=== PATIENT | male | born 1940 | race Caucasian/White ===

== ENCOUNTER → 2017-12-17 10:19 | Outpatient (CLI) | payer MEDICARE, MEDICAID, SELFPAY ==
[2017-12-17 13:02] LABS: INR 1.8 (1.0-3.5)
== END ==
PROVIDERS: PCP Family Medicine; Visit Provider Family Medicine
DX: I48.0 Paroxysmal atrial fibrillation (principal); Z79.01 Long term (current) use of anticoagulants
CPT/HCPCS: 36415; 85610

== ENCOUNTER 2017-12-24 15:15 | Emergency (ER) | payer MEDICARE, MEDICAID, SELFPAY ==
[2017-12-24 15:40] VITALS: BP 106/85; PULSE 54; RESP 20; TEMP 36.9; O2SAT 92
--- NOTE | 2017-12-24 16:14 | DI.REPORT_ITS ---
SYMPTOMS/DIAGNOSIS: LT AND RT KNEE PAIN, ? FX VS EFFUSION RIGHT KNEE: Three views were obtained. There are mild degenerative changes of the joints of the knee predominantly involving medial tibiofemoral joint. No acute fracture or dislocation seen. LEFT KNEE: Three views were obtained. There are degenerative changes noted involving the joints of the knee. On the tunnel view there is question of lucency projected through the lateral tibial plateau which may be associated with osteophytes. The possibility of a nondisplaced lateral tibial plateau fracture not excluded. CT correlation suggested if clinically appropriate.
--- NOTE | 2017-12-24 16:18 | ED.GENADUL_ITS ---
Disposition Clinical Impression: Bilateral knee pain, Arthritis of knee, patella spur Disposition: HOME Condition: Stable Instructions: Knee Pain (ED) Additional Instructions: Drink plenty fluids and get plenty of rest. Take the Vicodin as needed and directed for pain. Be aware that the Vicodin has acetaminophen or Tylenol and it so do not take extra Tylenol with this due to risk of Tylenol toxicity. If you have gone sufficient time without taking the Vicodin and would like something not as strong, you can take Tylenol. Do not take more than 3 g of Tylenol daily. Call your primary care doctor tomorrow to schedule follow-up appointment for reevaluation. Prescriptions: HYDROcodone 5 mg/APAP 325 mg [[place] 5/325] 1 tab PO Q6H PRN #12 tab PRN Reason: Pain Medical Decision Making - Radiology Data Radiology results: report reviewed, image reviewed Right knee xray: 1. Diffuse osteopenia. 2. Mild arthritic narrowing is seen within the medial compartment. 3. 1.8 cm patellar spur. 4. Scattered atherosclerotic vascular plaquing. Left knee x-ray: 1. Diffuse osteopenia. 2. An approximately 6 mm patellar spur. 3. Mild arthritic narrowing is seen within the patellofemoral space. 4. Scattered atherosclerotic vascular plaquing. - Medical Decision Making 77-year-old male with bilateral knee pain recently, worse over the past 4 days after kneeling on them while fishing. Pain in bilateral knees with range of motion, worse on right side. No obvious injury, deformity. There is no fever, erythema, edema, or significant warmth to touch of skin overlying knees making cellulitis less likely. No calf tenderness, negative Homans sign, no DVT risk factors so doubt DVT. No ligamentous instability. Neurovascularly intact. No recent dose of Tylenol today. Chart notes an allergy to oxycodone which patient and family are unsure of reaction but they do not think it caused throat swelling or respiratory distress. They think that patient has had hydrocodone in the past and has tolerated this. Differential diagnosis includes arthritis, effusion, occult fracture, ligamentous injury. Will give a dose of hydrocodone and send for bilateral knee x-rays. 1900 --long delay in disposition due to critical patients in ED. Bilateral x-rays note osteoarthritis and patella spur but no acute fracture or effusion. Patient feels much better after hydrocodone. Patient was able to ambulate and weight-bear and feels much better and feels good to go home. We will send home with doses of Vicodin as well as prescription. Instructed on rest, ice, elevate. Patient offered Darrick wraps but declined stating he will get this at home. Patient was instructed to follow-up with primary care doctor in 1 week for reevaluation and to return here if worse. History of Present Illness - General Chief complaint: Orthopedic Stated complaint: LEG PAIN Time Seen by Provider: 12/24/17 15:18 Source: patient Mode of arrival: ambulatory Limitations: no limitations - History of Present Illness Initial comments: Patient is a 77-year-old male presents with bilateral knee pain for 4 days. States his knees have been bothering him recently but worse over the past 4 days after kneeling on them for several hours while fishing. States he is having significant pain with range of motion and weightbearing, and symptoms are worse in the right knee. Denies any twisting injury to knees bilaterally. Has taken Tylenol for pain without relief. Cannot take ibuprofen due to taking Coumadin for his A. fib. He denies any recent surgery, recent travel, calf pain , shortness of breath, chest pain or dizziness. - Related Data Warfarin Sodium 2.5 mg PO DAILY #90 tab-cap 02/11/17 Simvastatin 20 mg PO DAILY #90 tab-cap 04/26/17 Metoprolol [Lopressor] 50 mg PO BID tab-cap 04/30/17 Albuterol Sulfate 1.25 mg IH QID PRN #50 vial 08/28/17 Umeclidinium [place] [Incruse Ellipta] 1 dose IH DAILY #90 blist 09/13/17 Ventolin Hfa 1 puff IH Q4H PRN #1 inh 09/13/17 Ranitidine HCl 150 mg PO DAILY #180 tablet 09/24/17 Ropinirole HCl [Requip] 0.25 mg PO HS #90 tablet 10/14/17 Torsemide [Demadex] 80 mg PO DAILY #120 tab 10/14/17 Spironolactone 25 mg PO DAILY #90 tab 10/25/17 Alprazolam 0.125 - 0.25 mg PO DAILY PRN #20 tab-cap 11/15/17 Cilostazol [Pletal] 100 mg PO BID #60 tab-cap 12/17/17 HYDROcodone 5 mg/APAP 325 mg [[place] 5/325] 1 tab PO Q6H PRN #12 tab 12/24/17 Allergies Allergy/AdvReac Type Severity Reaction Status Date / Time venom-honey bee Allergy Severe Unverified 12/24/17 15:46 oxycodone HCl [From Percocet] Allergy Intermediate Unverified 12/24/17 15:46 aspirin AdvReac Mild epistaxis/nose Unverified 12/24/17 15:46 bleeds NSAIDS (Non-Steroidal AdvReac Mild epistaxis/nose Unverified 12/24/17 15:46 Anti-Inflamma bleeds DARRICK Inhibitors AdvReac Unknown COUGH Unverified 12/24/17 15:46 codeine AdvReac Unknown Unverified 12/24/17 15:46 amiodarone AdvReac Insomnia Unverified 12/24/17 15:46 diltiazem AdvReac Insomnia Unverified 12/24/17 15:46 Review of Systems Constitutional: denies: chills, fever Eyes: denies: eye pain ENT: denies: ear pain, dental pain Respiratory: denies: cough, shortness of breath Cardiovascular: denies: chest pain, dyspnea on exertion Gastrointestinal: denies: abdominal pain, nausea, vomiting Genitourinary: denies: urgency, dysuria, frequency Musculoskeletal: denies: back pain Skin: denies: rash, lesions Neurological: denies: headache, weakness, numbness Past Medical History - Past Medical History Medical history: AFIB, CAD, CHF, COPD, CVA/TIA, diabetes, GERD, hyperlipidemia, hypertension Cardiomyopathy Surgical history: herniorraphy, pacemaker/AICD, other (Cataract surgery) Family history: CAD/MA (grandmother), diabetes (mother) - Social History Smoking status: never smoker Alcohol use: none Drug use: none General Exam - General Limitations: no limitations General appearance: alert, in no apparent distress - Eye Eye exam: Present: EOMI - Respiratory Respiratory exam: Absent: respiratory distress - Cardiovascular Cardiovascular Exam: Present: regular rate - Extremities Exam Extremities exam: Present: other (Limited range of motion in knees bilaterally, worse on right side with range of motion. No edema, ecchymosis, erythema or obvious effusion noted to knees bilaterally. No bilateral calf tenderness. Bilateral DP/PT pulses intact. Negative Homans sign bilaterally. Very minimal less than 1+ pitting edema bilateral lower extremities. No pain in hips/ankles/ feet with range of motion. Negative anterior and posterior drawer test bilaterally. No pain with valgus or varus stress.) - Neurological Exam Neurological exam: Present: alert, oriented X3 - Psychiatric Psychiatric exam: Present: normal affect - Skin Skin exam: Present: warm, dry, intact Course Vital Signs - 24 hr 12/24/17 15:40 Temperature 98.4 F Pulse 54 L Respiratory 20 Rate Blood Pressure 106/85 Pulse Oximetry 92 L
[2017-12-24] MEDS: HYDROcodone 5/Acetaminophen 325 TAB PO (17:08)
--- NOTE | 2017-12-24 17:21 | DI.VRAD_ITS ---
EXAM: XR Right Knee, 3 Views EXAM DATE/TIME: 12/24/2017 4:16 PM CLINICAL HISTORY: 77 years old, male; Signs and symptoms; Other: Right knee pain, R/O fracture vs effusion TECHNIQUE: XR Right knee 3 views. COMPARISON: No relevant prior studies available. FINDINGS: Bones/joints: No acute fractures are seen. There is diffuse osteopenia. Mild arthritic narrowing is seen within the medial compartment. A long curvilinear patellar spur arises from the anterior superior aspect measuring an estimated 1.8 cm in length. Soft tissues: Normal. Vasculature: Scattered atherosclerotic plaquing is present within the femoral and popliteal arteries. IMPRESSION: 1. Diffuse osteopenia. 2. Mild arthritic narrowing is seen within the medial compartment. 3. 1.8 cm patellar spur as described above. 4. Scattered atherosclerotic vascular plaquing as described above. Dictated and Authenticated by: Norman Appiah MD. Ordering:JOCLEYNE ARRIOLA MD
--- NOTE | 2017-12-24 17:23 | DI.VRAD_ITS ---
EXAM: XR Left Knee, 3 Views EXAM DATE/TIME: 12/24/2017 4:16 PM CLINICAL HISTORY: 77 years old, male; Signs and symptoms; Other: Left knee pain, R/O acute fracture vs effusion TECHNIQUE: XR Left knee 3 views. COMPARISON: No relevant prior studies available. FINDINGS: Bones/joints: No acute fractures are seen. There is diffuse osteopenia. An approximately 6.0 mm patellar spur arises from the anterior superior aspect. Mild arthritic narrowing is seen within the patellar-femoral space. Soft tissues: Normal. Vasculature: Scattered atherosclerotic plaquing is noted within the femoral artery and popliteal arteries and trifurcation vessels. IMPRESSION: 1. Diffuse osteopenia. 2. An approximately 6.0 mm patellar spur is present as described above. 3. Mild arthritic narrowing is seen within the patellar-femoral space. 4. Scattered atherosclerotic vascular plaquing is present. Dictated and Authenticated by: Norman Appiah MD. Ordering:JOCELYNE ARRIOLA MD
--- NOTE | 2017-12-25 08:20 | PDOC.ERCMPRO ---
Care Management Progress Note 12/25-Dr. Garnett requested patient's PCP be notified that knee xrays were originally read as negative but once over read, there is some changes. PCP is Dr. Adams. Referral faxed to Dr. Adams's office for review and f/u as needed.
== END 2017-12-24 19:39 | disposition home or self-care (01) ==
PROVIDERS: Emergency Provider Physician Assistant; PCP Family Medicine
DX: M25.561 Pain in right knee (principal); M25.562 Pain in left knee; M17.0 Bilateral primary osteoarthritis of knee; M25.762 Osteophyte, left knee; J44.9 Chronic obstructive pulmonary disease, unspecified; E11.9 Type 2 diabetes mellitus without complications; I10 Essential (primary) hypertension
CPT/HCPCS: 73562 ×2; 99284 ×2

== ENCOUNTER 2018-01-08 22:57 | Emergency (ER) | payer MEDICARE, MEDICAID, SELFPAY ==
[2018-01-08] VITALS (11 sets, daily range): BP systolic 90–110; BP diastolic 62–94; PULSE 63–91; RESP 14–28; TEMP 36.3; O2SAT 93–98
--- NOTE | 2018-01-08 00:20 | DI.REPORT_ITS ---
SYMPTOM/DIAGNOSIS: SOB PA AND LATERAL CHEST: There is evidence of COPD. No infiltrate is identified. The heart is not enlarged. Cardiac pacing wires are in stable position when compared with previous images. SUMMARY: COPD. No evidence of acute cardiopulmonary disease.
--- NOTE | 2018-01-08 23:33 | ED.GENADUL ---
Disposition Clinical Impression: CHF (congestive heart failure) Disposition: HOME Condition: Fair Instructions: Heart Failure (ED) Additional Instructions: Please take your medications today as you normally would. Please take 120 mg (6 tablets) of Demadex (torsemide) daily on Saturday, Saturday, Saturday. Go back to your normal dosing on Saturday. Take all other medications as you had been previously doing. Follow-up with primary care on Saturday. Will have you follow back up with cardiology here as well. We will have care management help expedite these appointments. Return to the emergency department if you develop chest pain, increasing shortness of breath, decreasing urine output, fever, other concerns. Referrals: Bennie Adams [Primary Care Provider] - [facility] [Provider Group] Medical Decision Making - Lab Data Results reviewed for labs ordered during visit: Yes - EKG Data -: EKG Interpreted by Me Interpretation: other (100% paced) - Radiology Data Radiology results: report reviewed, image reviewed - Medical Decision Making Patient presenting with increasing shortness of breath that is worse when lying back. Tonight had episodes of diaphoresis associated with it. Did not have any type of chest pain, pressure, heaviness. Is not overly short of breath ambulating in here. He does have history of CHF and COPD. However, his history and his exam is more suggestive of CHF. He cannot really give me an exact time frame in terms of when shortness of breath got worse. His EF one year ago on echo was 20-25%. His EKG is 100% paced. Laboratory studies including a BNP and troponin are sent. Chest x-ray obtained. Chest x-ray shows no overt edema. He has emphysematous change only. Patient's laboratory studies show a negative troponin. He has a normal white count. Kidney function is elevated but is close to his baseline. His BNP is markedly elevated. Compared to previous he has been this high but he is typically 5000 not 10,000. INR is therapeutic. I am going to get a second troponin because of the complaint of diaphoresis. He does not look to be in respiratory distress. I am going to give him oral potassium and IV Lasix. He is on 80 of Demadex orally. I will give him 80 of Lasix IV. Will monitor his output. Will reevaluate his respiratory status after his second troponin comes back. 5 AM -patient has diuresed about 700 mL's of urine in the last couple of hours. His second troponin is negative. He is sitting on the side of the bed in no distress. He has ambulated in the department without problems. Room air saturations have been in the mid 90s. Systolic blood pressures have been 90s without changes or symptoms. At this point no clear indication for admission. I do think we need to continue some diuresis over the weekend. Have discussed with him increasing his Demadex starting Saturday for the weekend. We will then have him follow-up with primary care early next week for reevaluation. Will also try to get him back into cardiology clinic here. Probably needs a repeat echo to see how his ejection fraction is doing since last year. He should return to the ED over the weekend for chest pain, increasing shortness of breath, decreasing urine output, fever, other concerns. History of Present Illness - General Chief complaint: SOB Stated complaint: SOB Time Seen by Provider: 01/08/18 23:33 Source: patient Mode of arrival: ambulatory Limitations: no limitations - History of Present Illness Initial comments: Patient presents to ED with complaint of shortness of breath and sweatiness. Patient reports increasing shortness of breath over some unknown period of time. He really cannot tell me when he thinks it started to get worse. Definitely was bothering him last night. He did not have any chest pain or pressure. He became diaphoretic with his shortness of breath tonight which is what prompted him to come in. Shortness of breath is much worse when he is lying back. He typically sleeps with pillows but even propped up tonight he is having some trouble. He denies having fever. He has a chronic cough which is unchanged. He continues to make urine. He has increased leg swelling but it seems about the same to him. He has been taking his medications which include Demadex and spironolactone. He does have a history of both COPD and CHF. He does not think his inhalers or nebulizers really make a difference. He had a little shortness of breath ambulating from the waiting room to his room here in the ED. However, he states his breathing is much worse if he is lying back. - Related Data Warfarin Sodium 2.5 mg PO DAILY #90 tab-cap 02/11/17 Simvastatin 20 mg PO DAILY #90 tab-cap 12/15/17 Metoprolol [Lopressor] 50 mg PO BID tab-cap 04/30/17 Albuterol Sulfate 1.25 mg IH QID PRN #50 vial 08/28/17 Umeclidinium [place] [Incruse Ellipta] 1 dose IH DAILY #90 blist 09/13/17 Ventolin Hfa 1 puff IH Q4H PRN #1 inh 09/13/17 Ranitidine HCl 150 mg PO DAILY #180 tablet 09/24/17 Ropinirole HCl [Requip] 0.25 mg PO HS #90 tablet 10/14/17 Torsemide [Demadex] 80 mg PO DAILY #120 tab 10/14/17 Spironolactone 25 mg PO DAILY #90 tab 10/25/17 Alprazolam 0.125 - 0.25 mg PO DAILY PRN #20 tab-cap 11/15/17 Hydrocodone/Acetaminophen [Hydrocodone-Acetamin 5-325 mg] 1 tab PO Q6H PRN #28 tab 12/27/17 Inhaler, Assist Devices [Aerochamber Mini] 1 each MC PRN #1 aer 12/27/17 Allergies Allergy/AdvReac Type Severity Reaction Status Date / Time venom-honey bee Allergy Severe Unverified 01/08/18 23:14 oxycodone HCl [From Percocet] Allergy Intermediate Unverified 01/08/18 23:14 aspirin AdvReac Mild epistaxis/nose Unverified 01/08/18 23:14 bleeds NSAIDS (Non-Steroidal AdvReac Mild epistaxis/nose Unverified 01/08/18 23:14 Anti-Inflamma bleeds PARMINDER Inhibitors AdvReac Unknown COUGH Unverified 01/08/18 23:14 codeine AdvReac Unknown Unverified 01/08/18 23:14 amiodarone AdvReac Insomnia Unverified 01/08/18 23:14 diltiazem AdvReac Insomnia Unverified 01/08/18 23:14 Review of Systems Constitutional: diaphoresis. denies: chills, fever Eyes: denies: eye pain, vision change ENT: denies: ear pain, congestion Respiratory: cough, shortness of breath Cardiovascular: edema. denies: chest pain, palpitations, syncope Gastrointestinal: denies: abdominal pain, nausea, vomiting, diarrhea Genitourinary: denies: dysuria, hematuria Musculoskeletal: arthralgia. denies: myalgia Skin: denies: rash Neurological: denies: headache, weakness, numbness Hematological/Lymphatic: easy bleeding Past Medical History - Past Medical History Medical history: AFIB, CAD, CHF, COPD, CVA/TIA, diabetes, GERD, hyperlipidemia, hypertension Cardiomyopathy Surgical history: herniorraphy, pacemaker/AICD, other (Cataract surgery) Family history: CAD/NE (grandmother), diabetes (mother) - Social History Smoking status: never smoker Alcohol use: none Drug use: none General Exam - General Limitations: no limitations General appearance: alert, in no apparent distress - Head Head exam: Present: atraumatic, normocephalic - Eye Eye exam: Present: normal apperance - Neck Neck exam: Present: normal inspection - Respiratory Respiratory exam: Present: rales (Bilateral bases). Absent: respiratory distress, wheezes, rhonchi, decreased breath sounds - Cardiovascular Cardiovascular Exam: Present: regular rate, irregular rhythm, systolic murmur, other (Distal pulses intact) - GI/Abdominal GI/Abdominal exam: Present: soft. Absent: distended, tenderness, guarding - Extremities Exam Extremities exam: Present: pedal edema (3+ pitting edema up to the knees.). Absent: tenderness, calf tenderness - Neurological Exam Neurological exam: Present: alert, oriented X3, CN II-XII intact. Absent: motor sensory deficit - Skin Skin exam: Present: warm, dry, intact. Absent: erythema Course Vital Signs - 24 hr 01/08/18 01/08/18 23:01 23:04 Temperature 97.3 F L Pulse 82 Respiratory 22 22 Rate Blood Pressure 110/94 Pulse Oximetry 98
[2018-01-09] VITALS (16 sets, daily range): BP systolic 88–123; BP diastolic 56–82; PULSE 70–106; RESP 10–30; O2SAT 93–97
[2018-01-09 00:18] LABS: Abs Immature Grans 0.04 k/cumm (0.0-0.09); Absolute Basophil Count 0.05 k/cumm (0.0-0.2); Absolute Eosinophil Count 0.15 k/cumm (0.0-0.7); Absolute Lymphocyte Count 2.05 k/cumm (1.2-3.4); Absolute Monocyte Count 1.16 k/cumm (0.11-0.7); Absolute Neutrophil Count 5.31 k/cumm (1.2-6.7); Basophils % 0.6; Eosinophils % 1.7; HCT 36.9 % (40.0-50.0); HGB 12.5 g/dL (13.5-17.5); Immature Grans % 0.5; Lymphocytes % 23.4; Mean Corp. HGB Concentration 33.9 g/dL (32.0-36.0); Mean Corpuscular Hemoglobin 34.9 pg (27.0-33.0); Mean Corpuscular Volume 103.1 fL (80-95); Mean Platelet Volume 9.7 fL (8.0-11.0); Monocytes % 13.2; Neutrophils % 60.6; RBC 3.58 m/cumm (4.50-6.00); RBC Distribution Width 15.3 % (11.8-14.1); White Blood Cell Count 8.76 k/cumm (4.4-10.8)
[2018-01-09 00:31] LABS: INR 2.4 (1.0-3.5); Prothrombin Time 22.5 sec (9.3-10.8)
--- NOTE | 2018-01-09 00:32 | DI.VRAD_ITS ---
EXAM: XR Chest, 2 Views EXAM DATE/TIME: 01/08/2018 11:46 PM CLINICAL HISTORY: 77 years old, male; Signs and symptoms; Shortness of breath; Prior surgery; Surgery date: 6+ months; Surgery type: Pace maker a couple years ago; Patient HX: SOB, cough TECHNIQUE: XR of the chest, 2 views. COMPARISON: CR - CHEST 2 VIEWS PA,LAT 09/19/2017 6:56 PM FINDINGS: Tubes, catheters and devices: Left chest wall pacemaker with leads in the right atrium, right ventricle, and coronary sinus. Lungs: Emphysematous changes. No evidence of pneumonia, pulmonary vascular congestion, or pulmonary edema. Pleural space: No pneumothorax. No sizable pleural effusion. Heart/Mediastinum: Mild cardiomegaly. Bones/joints: Unremarkable for patient's age. IMPRESSION: Emphysematous changes. No evidence of pneumonia, pulmonary vascular congestion, or pulmonary edema. Dictated and Authenticated by: Leobardo Hernandez MD. Ordering:REBECCA CAM MD
[2018-01-09 00:37] LABS: ALT 15 U/L (12-78); AST 21 U/L (15-37); Albumin 2.8 g/dL (3.4-5.0); Alkaline Phosphatase 93 U/L (46-116); Anion Gap 8.4 mmol/L (3-11); BUN 35 mg/dL (7-18); Bilirubin, Total 0.5 mg/dL (0.2-1.0); CO2 25.6 mmol/L (21.0-32.0); Calcium 8.5 mg/dL (8.5-10.1); Chloride 99 mmol/L (98-107); Estimated GFR 39.49 (mL/min/1.73m2); Glucose 133 mg/dL (70-100); Magnesium 1.9 mg/dL (1.8-2.4); NT-proBNP 10111 pg/mL; Potassium 3.6 mmol/L (3.5-5.1); Sodium 133 mmol/L (136-145); Total Protein 7.6 g/dL (6.4-8.2)
[2018-01-09 00:44] LABS: Troponin I < 0.02 ng/mL (0.00-0.06)
[2018-01-09 00:45] LABS: Platelet Count 247 x1000/uL (130-400)
[2018-01-09 00:46] LABS: RBC Morphology Normal
[2018-01-09] MEDS: Normal Saline Flush 10 ML SYR IVP (01:27)
[2018-01-09] MEDS: Furosemide 100 MG/10 ML VIAL 80 MG IVP (01:27)
[2018-01-09] MEDS: Potassium Chloride 20 MEQ TABCR 40 MEQ PO (01:28)
[2018-01-09 04:34] LABS: Troponin I < 0.02 ng/mL (0.00-0.06)
--- NOTE | 2018-01-09 10:49 | PDOC.ERCMPRO ---
Care Management Progress Note 01/09-Dr. Gay requested cardiology and PCP (Dr. Adams) f/u on Saturday for CHF and medication changes for the weekend. Referrals faxed to [facility] and to Cardiology this am.
== END 2018-01-09 05:52 | disposition home or self-care (01) ==
PROVIDERS: Emergency Provider Emergency Medicine; PCP Family Medicine
DX: I50.9 Heart failure, unspecified (principal); I11.0 Hypertensive heart disease with heart failure; J44.9 Chronic obstructive pulmonary disease, unspecified; E11.9 Type 2 diabetes mellitus without complications
CPT/HCPCS: 71046; 93005; 96374; 99284; 99285; J1940; 36415; 80053; 83735; 83880; 84484; 85025; 85610; 93010

== ENCOUNTER 2018-01-14 12:00 | Outpatient (CLI) | payer MEDICARE, MEDICAID, SELFPAY | END 2018-01-14 12:20 | PROVIDERS: PCP Family Medicine; Visit Provider Nurse Practitioner Family | DX: I48.91 Unspecified atrial fibrillation (principal); Z45.018 Encounter for adjustment and management of other part of cardiac pacemaker | CPT/HCPCS: 93289; 99214 ==

== ENCOUNTER → 2018-02-11 10:28 | Outpatient (BNVA) | payer MEDICARE, MEDICAID, SELFPAY | PROVIDERS: PCP Family Medicine; Visit Provider Nurse Practitioner Family | DX: I42.0 Dilated cardiomyopathy (principal); I48.1 Persistent atrial fibrillation; Z79.01 Long term (current) use of anticoagulants; J44.9 Chronic obstructive pulmonary disease, unspecified; E11.9 Type 2 diabetes mellitus without complications; Z95.0 Presence of cardiac pacemaker | CPT/HCPCS: 99214 ==

== ENCOUNTER 2018-02-12 01:57 | Outpatient (CLI) | payer MEDICARE, MEDICAID, SELFPAY ==
[2018-02-12 13:37] LABS: Anion Gap 9.5 mmol/L (3-11); BUN 30 mg/dL (7-18); CO2 27.5 mmol/L (21.0-32.0); CREATININE 1.42 mg/dL (0.70-1.30); Chloride 98 mmol/L (98-107); Estimated GFR 48.47 (mL/min/1.73m2); Glucose 217 mg/dL (70-100); NT-proBNP 4861 pg/mL; Sodium 135 mmol/L (136-145)
[2018-02-12 13:49] LABS: Digoxin 1.62 ng/mL (0.90-2.00)
== END 2018-02-12 02:17 ==
PROVIDERS: Nurse Practitioner Family; PCP Family Medicine; Visit Provider Family Medicine
DX: I48.91 Unspecified atrial fibrillation (principal); Z79.899 Other long term (current) drug therapy; R06.02 Shortness of breath; I50.9 Heart failure, unspecified
CPT/HCPCS: 36415; 80048; 80162; 83880; 85610

== ENCOUNTER 2018-03-14 01:52 | Outpatient (CLI) | payer MEDICARE, MEDICAID, SELFPAY ==
[2018-03-14 13:42] LABS: Hemoglobin A1C 6.8 % (4.5-6.2)
[2018-03-14 13:45] LABS: INR 2.2 (1.0-3.5); Prothrombin Time 21.2 sec (9.3-10.8)
== END 2018-03-14 02:12 ==
PROVIDERS: PCP Family Medicine; Visit Provider Family Medicine
DX: E11.9 Type 2 diabetes mellitus without complications (principal); I48.0 Paroxysmal atrial fibrillation; Z79.01 Long term (current) use of anticoagulants
CPT/HCPCS: 36415; 83036; 85610

== ENCOUNTER → 2018-03-18 13:54 | Outpatient (BNVA) | payer MEDICARE, MEDICAID, SELFPAY | PROVIDERS: PCP Family Medicine; Visit Provider Nurse Practitioner Family | DX: I48.0 Paroxysmal atrial fibrillation (principal); I11.0 Hypertensive heart disease with heart failure; I42.0 Dilated cardiomyopathy; Z79.01 Long term (current) use of anticoagulants; I25.10 Atherosclerotic heart disease of native coronary artery without angina pectoris; I50.9 Heart failure, unspecified; J44.9 Chronic obstructive pulmonary disease, unspecified; E11.9 Type 2 diabetes mellitus without complications; Z45.018 Encounter for adjustment and management of other part of cardiac pacemaker | CPT/HCPCS: 93284; 99214 ==

== ENCOUNTER 2018-03-22 11:50 | Emergency (ER) | payer MEDICARE, MEDICAID, SELFPAY ==
[2018-03-22 11:55] VITALS: BP 109/86; PULSE 71; RESP 18; TEMP 36.3; O2SAT 100
--- NOTE | 2018-03-22 12:00 | DI.RAD_ITS ---
SYMPTOM/DIAGNOSIS: RT WRIST PAIN, DISTAL RAD TIP, HX GOUT RIGHT WRIST: Three views. No priors. No acute fracture, dislocation, lytic or sclerotic lesions are seen. Mild degenerative changes are seen in the wrist particularly at the radial carpal joint. Vascular calcifications are present. IMPRESSION: Mild degenerative changes of the wrist. No acute abnormality.
--- NOTE | 2018-03-22 12:05 | W.ED.GENAD ---
Discharge Plan Disposition Patient Disposition: HOME Condition: Good Discharge Details Chief Complaint: Orthopedic Clinical Impression: Acute pain of right wrist, Gout Primary Care Provider: Bennie Adams ED Provider: Jason Garnett Home Meds and New Rx's Prescriptions: New acetaminophen [Mapap Extra Strength] 500 MG tablet 500 mg PO Q6H 5 Days Qty: 60 RF: 0 diclofenac sodium 1 % gel 2 gm TP QID Qty: 100 RF: 0 No Action digoxin 125 mcg tablet 0.125 mg PO DAILY RF: 0 naloxone [Narcan] 4 mg/actuation spray,non-aerosol 1 spray MARIANA ONCE PRN (Reason: opioid overdose) Qty: 2 RF: 0 spironolactone 25 mg tablet 50 mg PO DAILY RF: 0 albuterol sulfate [Ventolin HFA] 90 mcg/actuation HFA aerosol inhaler 1 puff IH Q4H PRN (Reason: shortness of breath or wheezing) Qty: 6.7 RF: 2 diazepam 2 mg tablet 2 mg PO HS PRN (Reason: anxiety) Qty: 30 RF: 0 metoprolol tartrate 50 mg tablet 50 mg PO BID Qty: 180 RF: 3 morphine [MS Contin] 15 mg tablet extended release 15 mg PO HS MDD 1 tab PRN (Reason: leg pain) Qty: 30 RF: 0 warfarin 2.5 mg tablet 2.5 - 5 mg PO DAILY Qty: 90 RF: 3 sacubitril-valsartan [Entresto] 24-26 mg tablet 1 tab PO BID Qty: 180 RF: 0 Inhaler, Assist Devices [Aerochamber Mini] 1 EACH spacer 1 ea Miscellaneous PRN Qty: 1 RF: 0 ropinirole 0.25 mg tablet 0.25 mg PO HS RF: 0 ranitidine HCl 150 mg capsule 150 mg PO DAILY RF: 0 umeclidinium 62.5 mcg/actuation blister with device 1 inh IH DAILY RF: 0 albuterol sulfate 1.25 mg/3 mL solution for nebulization 1.25 mg IH QID PRNRF: 0 simvastatin 20 mg tablet 20 mg PO QPM RF: 0 torsemide 20 mg tablet 80 mg PO DAILY Qty: 120 RF: 5 Discharge Instructions Instructions: Gout (ED) Additional Instructions: Please use the wrist brace as directed. Please apply the gel to your wrist as directed for pain control, please take Tylenol as directed. If you notice any worsening of your symptoms, or any new symptoms such as vomiting, diarrhea, fever, chills, shortness of breath, chest pain, numbness, weakness, or fainting , please return immediately to the emergency department for reevaluation. Please follow up with your primary care provider as soon as possible for reassessment and reevaluation. As always, it was a pleasure participating in your medical care today. Referrals: Bennie Adams [Primary Care Provider] - Medical Decision Making This is a pleasant 78-year-old male who is a poor historian with a past medical history of A. fib on Coumadin, digoxin, with a pacemaker and defibrillator, as well as gout. He presents today for right wrist pain that is been present for the last 3 days, it is achy with in nature, worse with movement, improved by nothing. Physical exam demonstrates minimal warmth over the right lateral wrist over the distal aspect of the radius. No evidence of trauma, deformity, no systemic symptoms of tachycardia or fever. No evidence of laceration, or significant infection. Distal extremity demonstrates normal sensation movement brisk capillary refill. Signs and symptoms are concerning for clinical gout. We will get an x-ray to evaluate for any acute fracture. I feel the patient would benefit from a left wrist splint, Lidoderm patch, and NSAID use as tolerable. 1:11 PM Patient's x-ray of his wrist is returned negative for any acute fracture. Differential still includes wrist sprain versus mild gout. We will prescribe acetaminophen, in a dose that would except be acceptable with his Blevins, as well as topical NSAIDs, secondary to his Coumadin use rather than systemic NSAIDs. We have given him a wrist splint, and patient does feel relief with this. We will discharge him home with close follow-up with his PCP. We discussed red flags which to return the patient understands. I have extensively reviewed the treatment plan and discharge instructions with the patient and their family. I have addressed all patient concerns at this time. The patient and family was made aware of what symptoms to monitor for that would warrant a return to the emergency department. Discussed the plan with the patient and family, they demonstrate verbal understanding and agreement with our assessment and plan at this time. FINDINGS: Bones/joints: Degenerative changes in the radiocarpal joint. No acute fracture. There is no evidence of malalignment or dislocation. Soft tissues: Normal. IMPRESSION: 1. Degenerative changes in the radiocarpal joint. 2. No acute fracture. Dictated and Authenticated by: Racheal Marte MD. [facility] General Date/Time Provider Initiated Documentation: 03/22/18 12:00. HPI Narrative: This is a 78-year-old male who is a very poor historian with a past medical history of high cholesterol, hypertension, A. fib, with a pacemaker defibrillator on Coumadin, as well as gout who presents today for evaluation of right wrist pain. Patient states that the pain has been present for the last 2-3 days. Parents were at bedside state that 3 days ago he had a new tractor/bdr, and he has been yanking on it to help get it to move as it is in a funny position. Pain may have begun after this, or per patient it may have begun on its own without any inciting event. Since then it is gradually worsened. It is located in the distal aspect of his right wrist. He describes it as achy, it is worse with movement. He denies any associated fever or chills. He denies any arm pain, elbow pain, finger pain, chest pain, or shortness of breath. He does have a history of gout and he states that the last time he had gout it was in his right great toe. He denies any recent fatty meals, meals high in protein, caviar, or exquisite cheese intake. Patient denies any focal trauma to the wrist. He denies any aggravating or relieving factors, however he does state he took a headache pill which per his medical list may have been his Blevins. Patient denies any other modifying components to his history. He does not recall if this feels like his previous episode of gout. He denies any systemic fevers, chills, numbness, tingling, or weakness. He has no other complaints at this time. He denies any previous surgeries on the wrist. He denies any IV or illicit drug use. Related Data Home Medications Medication Instructions Recorded Confirmed albuterol sulfate 1.25 mg/3 mL 1.25 mg IH QID PRN 01/15/18 03/22/18 solution for nebulization albuterol sulfate HFA 90 1 puff IH Q4H PRN #6.7 gm 01/15/18 03/22/18 mcg/actuation aerosol inhaler digoxin 125 mcg tablet 0.125 mg PO DAILY 01/15/18 03/22/18 naloxone 4 mg/actuation nasal spray 1 spray MARIANA ONCE PRN #2 each 01/15/18 03/22/18 ranitidine 150 mg capsule 150 mg PO DAILY 01/15/18 03/22/18 ropinirole 0.25 mg tablet 0.25 mg PO HS tab 01/15/18 03/22/18 simvastatin 20 mg tablet 20 mg PO QPM 01/15/18 03/22/18 spironolactone 25 mg tablet 50 mg PO DAILY tab 01/15/18 03/22/18 umeclidinium 62.5 mcg/actuation 1 inh IH DAILY 01/15/18 03/22/18 blister powder for inhalation warfarin 2.5 mg tablet 2.5 - 5 mg PO DAILY #90 tab 01/29/18 03/22/18 torsemide 20 mg tablet 80 mg PO DAILY #120 tab 02/11/18 03/22/18 diazepam 2 mg tablet 2 mg PO HS PRN #30 tab 03/07/18 03/22/18 metoprolol tartrate 50 mg tablet 50 mg PO BID #180 tab-cap 03/07/18 03/22/18 morphine ER 15 mg tablet,extended 15 mg PO HS PRN #30 tab MDD 1 tab 03/07/18 03/22/18 release sacubitril 24 mg-valsartan 26 mg 1 tab PO BID #180 tab 03/18/18 03/22/18 tablet acetaminophen [Mapap Extra 500 mg PO Q6H 5 Days #60 tab 03/22/18 Strength] diclofenac sodium 2 gm TP QID #100 gm 03/22/18 Previous Rx's Medication Instructions Recorded albuterol sulfate HFA 90 1 puff IH Q4H PRN #6.7 gm 01/15/18 mcg/actuation aerosol inhaler naloxone 4 mg/actuation nasal spray 1 spray MARIANA ONCE PRN #2 each 01/15/18 warfarin 2.5 mg tablet 2.5 - 5 mg PO DAILY #90 tab 01/29/18 torsemide 20 mg tablet 80 mg PO DAILY #120 tab 02/11/18 diazepam 2 mg tablet 2 mg PO HS PRN #30 tab 03/07/18 metoprolol tartrate 50 mg tablet 50 mg PO BID #180 tab-cap 03/07/18 morphine ER 15 mg tablet,extended 15 mg PO HS PRN #30 tab MDD 1 tab 03/07/18 release sacubitril 24 mg-valsartan 26 mg 1 tab PO BID #180 tab 03/18/18 tablet acetaminophen [Mapap Extra 500 mg PO Q6H 5 Days #60 tab 03/22/18 Strength] diclofenac sodium 2 gm TP QID #100 gm 03/22/18 Allergies Allergy/AdvReac Type Severity Reaction Status Date / Time venom-honey bee Allergy Severe Verified 03/18/18 14:15 oxycodone HCl [From Percocet] Allergy Intermediate Verified 03/18/18 14:15 aspirin AdvReac Mild epistaxis/nose Verified 03/18/18 14:15 bleeds NSAIDS (Non-Steroidal AdvReac Mild epistaxis/nose Verified 03/18/18 14:15 Anti-Inflamma bleeds PARMINDER Inhibitors AdvReac Unknown COUGH Verified 03/18/18 14:15 codeine AdvReac Unknown Verified 03/18/18 14:15 amiodarone AdvReac Insomnia Verified 03/18/18 14:15 diltiazem AdvReac Insomnia Verified 03/18/18 14:15 General Stated Complaint: Orthopedic YESIKA: 3 Review of Systems Review of Systems All systems reviewed & are unremarkable except as noted in HPI and below Exam Narrative Exam Narrative: 1.Const: Well-nourished, Well-developed, appearing stated age 2.Eyes: PERRL, no conjunctival injection, and symmetrical lids. 3.ENT: Atraumatic external nose and ears. Moist MM. Neck: Symmetric, trachea midline, No thyromegaly. 4.CVS: +S1/S2, No murmurs or gallops. Peripheral pulses 2+ and equal in all extremities. Brisk capillary refill in all extremities. 5.RESP: Unlabored respiratory effort. Clear to auscultation bilaterally. No wheezes rales or rhonchi 6.GI: Soft, Nontender/Nondistended, No hepatosplenomegaly. No guarding or rebound. 7.MSK: Normocephalic/Atraumatic, Extremities w/o deformity. No cyanosis or clubbing, Normal movement of all extremities. Patient does demonstrate minimal tenderness in the distal aspect of his right radius. Minimal tenderness over the anatomical snuffbox. Mild warmth, no significant erythema. Visual inspection of both wrists is otherwise symmetric. Minimal swelling in the right wrist. Pain with passive movement of the wrist. Minimal pain on palpation of that area, no pain on palpation of the proximal radius, or metacarpals. 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 No evidence of deformity, active bleeding, laceration, or purulent drainage. 8.Skin: Warm, Dry. No rashes or lesions. 9.Neuro: recreation leader II-XII grossly intact. Sensation grossly intact, no focal neurologic deficits. 10.Psych: (AAO) x3. Appropriate mood and affect Course Vital Signs Temperature 36.3 C L 03/22/18 11:55 Pulse 71 03/22/18 11:55 Respiratory Rate 18 03/22/18 11:55 Blood Pressure 109/86 03/22/18 11:55 Pulse Oximetry 100 03/22/18 11:55 Temperature 36.3 C L 03/22/18 11:55 Temperature Source Temporal Artery Scan 03/22/18 11:55 Pulse 71 03/22/18 11:55 Respiratory Rate 18 03/22/18 11:55 Respiratory Effort 03/22/18 11:55 Blood Pressure 109/86 03/22/18 11:55 Pulse Oximetry 100 03/22/18 11:55 Oxygen Delivery Method Room Air 03/22/18 11:55 Oxygen Flow Rate 0 03/22/18 11:55 Pain Level 10 03/22/18 12:04
[2018-03-22] MEDS: Ibuprofen 600 MG TAB PO (12:08)
[2018-03-22] MEDS: Lidocaine 5% Patch 1 PATCH TP (12:09)
--- NOTE | 2018-03-22 13:06 | DI.VRAD_ITS ---
EXAM: XR Right Wrist Complete, 3 or more Views EXAM DATE/TIME: 03/22/2018 12:03 PM CLINICAL HISTORY: 78 years old, male; Signs and symptoms; Other: R wrist pain, distal rad tip, HX gout TECHNIQUE: XR Right wrist 3 or more views. COMPARISON: No relevant prior studies available. FINDINGS: Bones/joints: Degenerative changes in the radiocarpal joint. No acute fracture. There is no evidence of malalignment or dislocation. Soft tissues: Normal. IMPRESSION: 1. Degenerative changes in the radiocarpal joint. 2. No acute fracture. Dictated and Authenticated by: Racheal Marte MD. Ordering:KENIA PHAM MD
[2018-03-22 13:08] VITALS: BP 104/74; PULSE 74; RESP 14; O2SAT 96
[2018-03-22] MEDS: Dexamethasone 4 MG TAB 12 MG PO (13:16)
== END 2018-03-22 13:23 | disposition home or self-care (01) ==
LOC: ER 13:27
PROVIDERS: Emergency Provider Student in an Organized Health Care Education/Training Program; PCP Family Medicine
DX: M25.531 Pain in right wrist (principal); M10.031 Idiopathic gout, right wrist
CPT/HCPCS: 29125; 99283; 73110; 99282; J8540; L3908

== ENCOUNTER 2018-03-29 10:54 | Emergency (ER) | payer MEDICARE, MEDICAID, SELFPAY ==
[2018-03-29 11:03] VITALS: BP 116/79; PULSE 75; RESP 18; TEMP 36.8; O2SAT 94
[2018-03-29 11:09] VITALS: BP 116/85; PULSE 64; RESP 16; TEMP 36.8; O2SAT 94
--- NOTE | 2018-03-29 11:25 | DI.RAD_ITS ---
SYMPTOM/DIAGNOSIS: FELL 6 DAYS AGO, LANDING ON RIGHT RIBS. PA CHEST, RIGHT RIBS: 03/29 PA chest and 4 additional views of the right ribs were obtained. There is transvenous cardiac pacemaker in position. Cardiac size is enlarged. Probable small right pleural effusion and question minimal patchy infiltrate of the costophrenic angle noted on the right. I cannot confirm the presence of a rib fracture but the views of the ribs are somewhat limited due to the patient's body habitus. With the clinical history of an injury at this site the possibility of occult rib fracture cannot be excluded. CONCLUSION: Small right pleural effusion and minimal infiltrate at right lung base, question acute infectious process vs occult rib injury.
--- NOTE | 2018-03-29 11:28 | W.ED.GENAD ---
Discharge Plan Disposition Patient Disposition: HOME Condition: Fair Discharge Details Chief Complaint: GenMedical Clinical Impression: Pneumonia Primary Care Provider: Bennie Adams ED Provider: Uri Long [facility] and New Rx's Prescriptions: New doxycycline monohydrate 100 mg tablet 100 mg PO BID Qty: 20 RF: 0 No Action digoxin 125 mcg tablet 0.125 mg PO DAILY RF: 0 spironolactone 25 mg tablet 50 mg PO DAILY RF: 0 albuterol sulfate [Ventolin HFA] 90 mcg/actuation HFA aerosol inhaler 1 puff IH Q4H PRN (Reason: shortness of breath or wheezing) Qty: 6.7 RF: 2 metoprolol tartrate 50 mg tablet 50 mg PO BID Qty: 180 RF: 3 morphine [MS Contin] 15 mg tablet extended release 15 mg PO HS MDD 1 tab PRN (Reason: leg pain) Qty: 30 RF: 0 warfarin 2.5 mg tablet 2.5 - 5 mg PO DAILY Qty: 90 RF: 3 diazepam 2 mg tablet 2 mg PO HS PRN (Reason: anxiety) Qty: 30 RF: 0 Inhaler, Assist Devices [Aerochamber Mini] 1 EACH spacer 1 ea Miscellaneous PRN Qty: 1 RF: 0 ropinirole 0.25 mg tablet 0.25 mg PO HS RF: 0 ranitidine HCl 150 mg capsule 150 mg PO DAILY RF: 0 albuterol sulfate 1.25 mg/3 mL solution for nebulization 1.25 mg IH QID PRNRF: 0 simvastatin 20 mg tablet 20 mg PO QPM RF: 0 torsemide 20 mg tablet 80 mg PO DAILY Qty: 120 RF: 5 hydrocodone-acetaminophen 5-325 mg Tablet 5 mg PO RF: 0 tiotropium bromide [Spiriva Respimat] 2.5 mcg/actuation Mist RF: 0 albuterol sulfate [Ventolin HFA] 90 mcg/actuation Hfa Aerosol Inhaler RF: 0 Discharge Instructions Instructions: Pneumonia (ED), Rib Contusion (ED) Referrals: [facility] [place] [facility] [Outside] - Return if symptoms worsen Medical Decision Making Exam and HPI consistent with rib fracture. Will x-ray to support. Apprised of x-ray impression. I will prescribe Doxycycline for the suspect pneumonia. Contraindications with Zithromax and other medications he is on. Advised to use his incentive spirometer. Return to ED if symptoms worsen otherwise with pcp. He and family member agree with plan. Imaging Data Radiologic Study: Imaging: X-Ray My impression: No acute obvious rib fracture. ? pneumonia at the right costophrenic angle. Radiologist's impression: V-Rad: No mention of rib fracture. 1. Mild opacities in the costophrenic angles may represent mild atelectasis or pneumonia. 2. There may be mild right pleural effusion. HPI General Date/Time Provider Initiated Documentation: 03/29/18 11:25. Limitations to Documentation: no limitations. Information obtained by: patient and family. History of Present Illness 78 year old M presents to the emergency department with the chief complaint of rib pain, described as moderate, HPI Narrative: 78 y/o male here with c/o right rib injury and pain. He is accompanied by family. He reports falling from stool, approximately two feet landing on the right rib. He was seen by his PCP and was advised to watch for signs of pneumonia with increased risk from pain. He denies fever but has increased difficulty breathing due to the pain. Family tells me they decreased his Morphine in half and ask if they should increase back to full tab for the pain. Denies any N/V, fever, hemoptysis. Denies hitting head. Related Data Home Medications Medication Instructions Recorded Confirmed albuterol sulfate 1.25 mg/3 mL 1.25 mg IH QID PRN 01/15/18 03/29/18 solution for nebulization albuterol sulfate HFA 90 1 puff IH Q4H PRN #6.7 gm 01/15/18 03/29/18 mcg/actuation aerosol inhaler digoxin 125 mcg tablet 0.125 mg PO DAILY 01/15/18 03/29/18 ranitidine 150 mg capsule 150 mg PO DAILY 01/15/18 03/29/18 ropinirole 0.25 mg tablet 0.25 mg PO HS tab 01/15/18 03/29/18 simvastatin 20 mg tablet 20 mg PO QPM 01/15/18 03/29/18 spironolactone 25 mg tablet 50 mg PO DAILY tab 01/15/18 03/29/18 warfarin 2.5 mg tablet 2.5 - 5 mg PO DAILY #90 tab 01/29/18 03/29/18 torsemide 20 mg tablet 80 mg PO DAILY #120 tab 02/11/18 03/29/18 metoprolol tartrate 50 mg tablet 50 mg PO BID #180 tab-cap 03/07/18 03/29/18 morphine ER 15 mg tablet,extended 15 mg PO HS PRN #30 tab MDD 1 tab 03/07/18 03/29/18 release diazepam 2 mg tablet 2 mg PO HS PRN #30 tab 03/26/18 03/29/18 albuterol sulfate [Ventolin HFA] 03/29/18 doxycycline monohydrate 100 mg PO BID #20 tab 03/29/18 hydrocodone-acetaminophen 5 mg PO 03/29/18 tiotropium bromide [Spiriva 03/29/18 Respimat] Previous Rx's Medication Instructions Recorded albuterol sulfate HFA 90 1 puff IH Q4H PRN #6.7 gm 01/15/18 mcg/actuation aerosol inhaler warfarin 2.5 mg tablet 2.5 - 5 mg PO DAILY #90 tab 01/29/18 torsemide 20 mg tablet 80 mg PO DAILY #120 tab 02/11/18 metoprolol tartrate 50 mg tablet 50 mg PO BID #180 tab-cap 03/07/18 morphine ER 15 mg tablet,extended 15 mg PO HS PRN #30 tab MDD 1 tab 03/07/18 release diazepam 2 mg tablet 2 mg PO HS PRN #30 tab 03/26/18 doxycycline monohydrate 100 mg PO BID #20 tab 03/29/18 Allergies Allergy/AdvReac Type Severity Reaction Status Date / Time venom-honey bee Allergy Severe Verified 03/26/18 09:17 oxycodone HCl [From Percocet] Allergy Intermediate Verified 03/26/18 09:17 aspirin AdvReac Mild epistaxis/nose Verified 03/26/18 09:17 bleeds NSAIDS (Non-Steroidal AdvReac Mild epistaxis/nose Verified 03/26/18 09:17 Anti-Inflamma bleeds PARMINDER Inhibitors AdvReac Unknown COUGH Verified 03/26/18 09:17 codeine AdvReac Unknown Verified 03/26/18 09:17 amiodarone AdvReac Insomnia Verified 03/26/18 09:17 diltiazem AdvReac Insomnia Verified 03/26/18 09:17 General Stated Complaint: GenMedical YESIKA: 3 Review of Systems ENT Reports system reviewed and no additional complaints, except as docu Cardiovascular Reports system reviewed and no additional complaints, except as docu Respiratory Reports cough, Denies hemoptysis and Denies wheezing Gastrointestinal Reports system reviewed and no additional complaints, except as [facility] Genitourinary Reports system reviewed and no additional complaints, except as [facility] Musculoskeletal Reports other (right rib pain) Integumentary/Breasts Reports system reviewed and no additional complaints, except as [facility] Neurologic Reports system reviewed and no additional complaints, except as [facility] Hematologic/Lymphatic Reports system reviewed and no additional complaints, except as [facility] Allergic/Immunologic Denies wheezing Exam Const General: cooperative, healthy appearing, uncomfortable (looks like he is in pain) and no acute distress Nutritional Appearance: average body habitus Orientation: alert, awake and oriented x3 HENMT Head: normal to inspection and atraumatic Ears: hearing grossly normal bilaterally and external ears normal Mouth: moist mucous membranes Eyes General: appearance normal, both eyes and all related structures Neck Neck: normal visual inspection, full ROM and no lymphadenopathy Chest Chest: normal inspection of the chest and normal palpation of entire chest wall Breast inspection: normal inspection of the breasts Breast palpation: normal palpation of the breasts Chest/axillae images: 1. Chest wall/Rib pain both anteriorly and posteriorly Resp Effort & Inspection: able to speak in complete sentences and decreased respiratory effort (secondary to pain) Auscultation: clear to auscultation bilaterally Cardio Rate: regular rate Back/Spine/Pelvis Back: No back tenderness Skin General skin exam: no rashes or lesions noted Neuro General: alert, awake, oriented x3, gait normal, tone normal and moves all extremities Cognition: normal cognition Speech: speech normal Gait: normal gait Extrem General: normal to inspection, full ROM and normal capillary refill Psych Appearance: grossly normal and well kempt Speech and Movement: speech and movement normal Mood: congruent mood Affect: normal affect Attitude: cooperative Thought Process: normal Course Vital Signs Temperature 36.8 C 03/29/18 11:03 Pulse 75 03/29/18 11:03 Respiratory Rate 18 03/29/18 11:03 Blood Pressure 116/79 03/29/18 11:03 Pulse Oximetry 94 L 03/29/18 11:03 Temperature 36.8 C 03/29/18 11:09 Temperature Source Temporal Artery Scan 03/29/18 11:09 Pulse 64 03/29/18 11:09 Respiratory Rate 16 03/29/18 11:09 Respiratory Effort 03/29/18 11:05 Respiratory Depth Shallow 03/29/18 11:05 Blood Pressure 116/85 03/29/18 11:09 Blood Pressure Position Sitting 03/29/18 11:03 Pulse Oximetry 94 L 03/29/18 11:09 Oxygen Delivery Method Room Air 03/29/18 11:09 Oxygen Flow Rate 0 03/29/18 11:09
--- NOTE | 2018-03-29 11:33 | ED.GENADUL_ITS ---
Discharge Plan Disposition Patient Disposition: HOME Condition: Fair Discharge Details Chief Complaint: GenMedical Clinical Impression: Pneumonia Primary Care Provider: Bennie Adams ED Provider: Uri Long [facility] and New Rx's Prescriptions: New doxycycline monohydrate 100 mg tablet 100 mg PO BID Qty: 20 RF: 0 No Action digoxin 125 mcg tablet 0.125 mg PO DAILY RF: 0 spironolactone 25 mg tablet 50 mg PO DAILY RF: 0 albuterol sulfate [Ventolin HFA] 90 mcg/actuation HFA aerosol inhaler 1 puff IH Q4H PRN (Reason: shortness of breath or wheezing) Qty: 6.7 RF: 2 metoprolol tartrate 50 mg tablet 50 mg PO BID Qty: 180 RF: 3 morphine [MS Contin] 15 mg tablet extended release 15 mg PO HS MDD 1 tab PRN (Reason: leg pain) Qty: 30 RF: 0 warfarin 2.5 mg tablet 2.5 - 5 mg PO DAILY Qty: 90 RF: 3 diazepam 2 mg tablet 2 mg PO HS PRN (Reason: anxiety) Qty: 30 RF: 0 Inhaler, Assist Devices [Aerochamber Mini] 1 EACH spacer 1 ea Miscellaneous PRN Qty: 1 RF: 0 ropinirole 0.25 mg tablet 0.25 mg PO HS RF: 0 ranitidine HCl 150 mg capsule 150 mg PO DAILY RF: 0 albuterol sulfate 1.25 mg/3 mL solution for nebulization 1.25 mg IH QID PRNRF: 0 simvastatin 20 mg tablet 20 mg PO QPM RF: 0 torsemide 20 mg tablet 80 mg PO DAILY Qty: 120 RF: 5 hydrocodone-acetaminophen 5-325 mg Tablet 5 mg PO RF: 0 tiotropium bromide [Spiriva Respimat] 2.5 mcg/actuation Mist RF: 0 albuterol sulfate [Ventolin HFA] 90 mcg/actuation Hfa Aerosol Inhaler RF: 0 Discharge Instructions Instructions: Pneumonia (ED), Rib Contusion (ED) Referrals: [facility] Emergency Dept. [Outside] - Return if symptoms worsen Medical Decision Making Exam and HPI consistent with rib fracture. Will x-ray to support. Apprised of x-ray impression. I will prescribe Doxycycline for the suspect pneumonia. Contraindications with Zithromax and other medications he is on. Advised to use his incentive spirometer. Return to ED if symptoms worsen otherwise with pcp. He and family member agree with plan. Imaging Data Radiologic Study: Imaging: X-Ray My impression: No acute obvious rib fracture. ? pneumonia at the right costophrenic angle. Radiologist's impression: V-Rad: No mention of rib fracture. 1. Mild opacities in the costophrenic angles may represent mild atelectasis or pneumonia. 2. There may be mild right pleural effusion. HPI General Date/Time Provider Initiated Documentation: 03/29/18 11:25 . Limitations to Documentation: no limitations . Information obtained by: patient and family . History of Present Illness 78 year old M presents to the emergency department with the chief complaint of rib pain, described as moderate, HPI Narrative: 78 y/o male here with c/o right rib injury and pain. He is accompanied by family. He reports falling from stool, approximately two feet landing on the right rib. He was seen by his PCP and was advised to watch for signs of pneumonia with increased risk from pain. He denies fever but has increased difficulty breathing due to the pain. Family tells me they decreased his Morphine in half and ask if they should increase back to full tab for the pain. Denies any N/V, fever, hemoptysis. Denies hitting head. Related Data Home Medications Medication Instructions Recorded Confirmed albuterol sulfate 1.25 mg/3 mL 1.25 mg IH QID PRN 01/15/18 03/29/18 solution for nebulization albuterol sulfate HFA 90 1 puff IH Q4H PRN #6.7 gm 01/15/18 03/29/18 mcg/actuation aerosol inhaler digoxin 125 mcg tablet 0.125 mg PO DAILY 01/15/18 03/29/18 ranitidine 150 mg capsule 150 mg PO DAILY 01/15/18 03/29/18 ropinirole 0.25 mg tablet 0.25 mg PO HS tab 01/15/18 03/29/18 simvastatin 20 mg tablet 20 mg PO QPM 01/15/18 03/29/18 spironolactone 25 mg tablet 50 mg PO DAILY tab 01/15/18 03/29/18 warfarin 2.5 mg tablet 2.5 - 5 mg PO DAILY #90 tab 01/29/18 03/29/18 torsemide 20 mg tablet 80 mg PO DAILY #120 tab 02/11/18 03/29/18 metoprolol tartrate 50 mg tablet 50 mg PO BID #180 tab-cap 03/07/18 03/29/18 morphine ER 15 mg tablet,extended 15 mg PO HS PRN #30 tab MDD 1 tab 03/07/18 release diazepam 2 mg tablet 2 mg PO HS PRN #30 tab 03/26/18 03/29/18 albuterol sulfate [Ventolin HFA] 03/29/18 doxycycline monohydrate 100 mg PO BID #20 tab 03/29/18 hydrocodone-acetaminophen 5 mg PO 03/29/18 tiotropium bromide [Spiriva 03/29/18 Respimat] Previous Rx's Medication Instructions Recorded albuterol sulfate HFA 90 1 puff IH Q4H PRN #6.7 gm 01/15/18 mcg/actuation aerosol inhaler warfarin 2.5 mg tablet 2.5 - 5 mg PO DAILY #90 tab 01/29/18 torsemide 20 mg tablet 80 mg PO DAILY #120 tab 02/11/18 metoprolol tartrate 50 mg tablet 50 mg PO BID #180 tab-cap 03/07/18 morphine ER 15 mg tablet,extended 15 mg PO HS PRN #30 tab MDD 1 tab 03/07/18 release diazepam 2 mg tablet 2 mg PO HS PRN #30 tab 03/26/18 doxycycline monohydrate 100 mg PO BID #20 tab 03/29/18 Allergies Allergy/AdvReac Type Severity Reaction Status Date / Time venom-honey bee Allergy Severe Verified 03/26/18 09:17 oxycodone HCl [From Percocet] Allergy Intermediate Verified 03/26/18 09:17 aspirin AdvReac Mild epistaxis/nose Verified 03/26/18 09:17 bleeds NSAIDS (Non-Steroidal AdvReac Mild epistaxis/nose Verified 03/26/18 09:17 Anti-Inflamma bleeds PARMINDER Inhibitors AdvReac Unknown COUGH Verified 03/26/18 09:17 codeine AdvReac Unknown Verified 03/26/18 09:17 amiodarone AdvReac Insomnia Verified 03/26/18 09:17 diltiazem AdvReac Insomnia Verified 03/26/18 09:17 General Stated Complaint: GenMedical YESIKA: 3 Review of Systems ENT Reports system reviewed and no additional complaints, except as docu Cardiovascular Reports system reviewed and no additional complaints, except as docu Respiratory Reports cough, Denies hemoptysis and Denies wheezing Gastrointestinal Reports system reviewed and no additional complaints, except as [facility] Genitourinary Reports system reviewed and no additional complaints, except as [facility] Musculoskeletal Reports other (right rib pain) Integumentary/Breasts Reports system reviewed and no additional complaints, except as [facility] Neurologic Reports system reviewed and no additional complaints, except as [facility] Hematologic/Lymphatic Reports system reviewed and no additional complaints, except as [facility] Allergic/Immunologic Denies wheezing Exam Const General: cooperative, healthy appearing, uncomfortable (looks like he is in pain ) and no acute distress Nutritional Appearance: average body habitus Orientation: alert, awake and oriented x3 HENMT Head: normal to inspection and atraumatic Ears: hearing grossly normal bilaterally and external ears normal Mouth: moist mucous membranes Eyes General: appearance normal, both eyes and all related structures Neck Neck: normal visual inspection, full ROM and no lymphadenopathy Chest Chest: normal inspection of the chest and normal palpation of entire chest wall Breast inspection: normal inspection of the breasts Breast palpation: normal palpation of the breasts Chest/axillae images: 2 1. Chest wall/Rib pain both anteriorly and posteriorly Resp Effort & Inspection: able to speak in complete sentences and decreased respiratory effort (secondary to pain) Auscultation: clear to auscultation bilaterally Cardio Rate: regular rate Back/Spine/Pelvis Back: No back tenderness Skin General skin exam: no rashes or lesions noted Neuro General: alert, awake, oriented x3, gait normal, tone normal and moves all extremities Cognition: normal cognition Speech: speech normal Gait: normal gait Extrem General: normal to inspection, full ROM and normal capillary refill Psych Appearance: grossly normal and well kempt Speech and Movement: speech and movement normal Mood: congruent mood Affect: normal affect Attitude: cooperative Thought Process: normal Course Vital Signs Temperature 36.8 C 03/29/18 11:03 Pulse 75 03/29/18 11:03 Respiratory Rate 18 03/29/18 11:03 Blood Pressure 116/79 03/29/18 11:03 Pulse Oximetry 94 L 03/29/18 11:03 Temperature 36.8 C 03/29/18 11:09 Temperature Source Temporal Artery Scan 03/29/18 11:09 Pulse 64 03/29/18 11:09 Respiratory Rate 16 03/29/18 11:09 Respiratory Effort 03/29/18 11:05 Respiratory Depth Shallow 03/29/18 11:05 Blood Pressure 116/85 03/29/18 11:09 Blood Pressure Position Sitting 03/29/18 11:03 Pulse Oximetry 94 L 03/29/18 11:09 Oxygen Delivery Method Room Air 03/29/18 11:09 Oxygen Flow Rate 0 03/29/18 11:09
--- NOTE | 2018-03-29 12:24 | DI.VRAD_ITS ---
EXAM: XR Chest, 1 View EXAM DATE/TIME: 03/29/2018 12:12 PM CLINICAL HISTORY: 78 years old, male; Injury or trauma; Fall; Initial encounter; Sprain or strain TECHNIQUE: XR of the chest, 1 view. COMPARISON: SC CHEST 2 VIEWS PA,LAT 01/08/2018 11:46 PM FINDINGS: Tubes, catheters and devices: Transvenous pacemaker leads Lungs: Mild opacities in the costophrenic angles may represent mild atelectasis or pneumonia. Pleural space: There may be mild right pleural effusion. Heart/Mediastinum: Cardiomegaly Bones/joints: Osseous structures are stable IMPRESSION: 1. Mild opacities in the costophrenic angles may represent mild atelectasis or pneumonia. 2. There may be mild right pleural effusion. Dictated and Authenticated by: Racheal Marte MD. Ordering:CONI DAVIDSON MD
== END 2018-03-29 13:23 | disposition home or self-care (01) ==
PROVIDERS: Emergency Provider Nurse Practitioner Family; PCP Family Medicine
DX: J18.9 Pneumonia, unspecified organism (principal); W08.XXXA Fall from other furniture, initial encounter
CPT/HCPCS: 99283; 71046; 71100

== ENCOUNTER 2018-04-08 01:42 | Outpatient (CLI) | payer MEDICARE, MEDICAID, SELFPAY ==
[2018-04-08 13:28] LABS: Prothrombin Time 43.8 sec (9.3-10.8)
[2018-04-08 13:36] LABS: Anion Gap 14.7 mmol/L (3-11); BUN 30 mg/dL (7-18); CO2 27.3 mmol/L (21.0-32.0); CREATININE 1.62 mg/dL (0.70-1.30); Calcium 9.4 mg/dL (8.5-10.1); Chloride 93 mmol/L (98-107); Estimated GFR 41.63 (mL/min/1.73m2); Glucose 191 mg/dL (70-100); NT-proBNP 2423 pg/mL; Potassium 4.1 mmol/L (3.5-5.1); Sodium 135 mmol/L (136-145)
[2018-04-08 14:30] LABS: INR 4.7 (1.0-3.5)
== END 2018-04-08 02:02 ==
PROVIDERS: PCP Family Medicine; Visit Provider Nurse Practitioner Family
DX: I50.9 Heart failure, unspecified (principal); I48.0 Paroxysmal atrial fibrillation; Z79.01 Long term (current) use of anticoagulants
CPT/HCPCS: 36415; 80048; 83880; 85610

== ENCOUNTER 2018-04-10 02:20 | Outpatient (CLI) | payer MEDICARE, MEDICAID, SELFPAY ==
[2018-04-10 12:46] LABS: INR 3.3 (1.0-3.5); Prothrombin Time 30.9 sec (9.3-10.8)
== END 2018-04-10 02:40 ==
PROVIDERS: PCP Family Medicine; Visit Provider Family Medicine
DX: I48.91 Unspecified atrial fibrillation (principal); Z79.01 Long term (current) use of anticoagulants
CPT/HCPCS: 36415; 85610

== ENCOUNTER → 2018-04-15 13:50 | Outpatient (BNVA) | payer MEDICARE, MEDICAID, SELFPAY | PROVIDERS: PCP Family Medicine; Visit Provider Nurse Practitioner Family | DX: I42.0 Dilated cardiomyopathy (principal); I48.0 Paroxysmal atrial fibrillation; I25.10 Atherosclerotic heart disease of native coronary artery without angina pectoris; I10 Essential (primary) hypertension; E11.9 Type 2 diabetes mellitus without complications; J44.9 Chronic obstructive pulmonary disease, unspecified; Z45.018 Encounter for adjustment and management of other part of cardiac pacemaker | CPT/HCPCS: 93289; 99214 ==

== ENCOUNTER 2018-04-30 01:59 | Outpatient (CLI) | payer MEDICARE, MEDICAID, SELFPAY ==
[2018-04-30 12:53] LABS: Prothrombin Time 18.6 sec (9.3-11.0)
[2018-04-30 13:03] LABS: Anion Gap 9.9 mmol/L (3-11); BUN 21 mg/dL (7-18); CO2 28.1 mmol/L (21.0-32.0); CREATININE 1.27 mg/dL (0.70-1.30); Calcium 8.9 mg/dL (8.5-10.1); Chloride 100 mmol/L (98-107); Estimated GFR 55.14 (mL/min/1.73m2); Glucose 185 mg/dL (70-100); Magnesium 1.6 mg/dL (1.8-2.4); NT-proBNP 1909 pg/mL; Potassium 4.6 mmol/L (3.5-5.1); Sodium 138 mmol/L (136-145)
[2018-04-30 13:09] LABS: INR 1.8 (1.0-3.5)
== END 2018-04-30 02:19 ==
PROVIDERS: PCP Family Medicine; Visit Provider Nurse Practitioner Family
DX: I48.0 Paroxysmal atrial fibrillation (principal); Z79.01 Long term (current) use of anticoagulants; R06.02 Shortness of breath; I10 Essential (primary) hypertension; I25.10 Atherosclerotic heart disease of native coronary artery without angina pectoris; I42.0 Dilated cardiomyopathy
CPT/HCPCS: 36415; 80048; 83735; 83880; 85610

== ENCOUNTER 2018-05-09 02:27 | Outpatient (CLI) | payer MEDICARE, MEDICAID, SELFPAY ==
[2018-05-09 14:14] LABS: INR 2.2 (1.0-3.5); Prothrombin Time 22.6 sec (9.3-11.0)
== END 2018-05-09 02:47 ==
PROVIDERS: PCP Family Medicine; Visit Provider Family Medicine
DX: I48.0 Paroxysmal atrial fibrillation (principal); Z79.01 Long term (current) use of anticoagulants
CPT/HCPCS: 36415; 85610

== ENCOUNTER 2018-05-23 01:01 | Outpatient (CLI) | payer MEDICARE, MEDICAID, SELFPAY ==
[2018-05-23 13:15] LABS: INR 2.7 (0.9-1.1); Prothrombin Time 27.1 sec (9.3-11.0)
== END 2018-05-23 01:21 ==
PROVIDERS: PCP Family Medicine; Visit Provider Family Medicine
DX: I48.0 Paroxysmal atrial fibrillation (principal); Z79.01 Long term (current) use of anticoagulants
CPT/HCPCS: 36415; 85610

== ENCOUNTER 2018-05-29 02:06 | Outpatient (CLI) | payer MEDICARE, MEDICAID, SELFPAY ==
[2018-05-29 12:54] LABS: Anion Gap 10.1 mmol/L (3-11); BUN 29 mg/dL (7-18); CO2 27.9 mmol/L (21.0-32.0); CREATININE 1.63 mg/dL (0.70-1.30); Calcium 8.5 mg/dL (8.5-10.1); Chloride 98 mmol/L (98-107); Estimated GFR 41.34 (mL/min/1.73m2); Glucose 205 mg/dL (70-100); Magnesium 1.8 mg/dL (1.8-2.4); Potassium 4.4 mmol/L (3.5-5.1); Sodium 136 mmol/L (136-145)
[2018-05-29 13:15] LABS: Prothrombin Time 33.9 sec (9.3-11.0)
[2018-05-29 13:18] LABS: INR 3.3 (0.9-1.1)
== END 2018-05-29 02:26 ==
PROVIDERS: PCP Family Medicine; Visit Provider Nurse Practitioner Family
DX: I48.0 Paroxysmal atrial fibrillation (principal); I42.9 Cardiomyopathy, unspecified; Z79.01 Long term (current) use of anticoagulants
CPT/HCPCS: 36415; 80048; 83735; 83880; 85610

== ENCOUNTER 2018-05-30 12:01 | Inpatient (IN) | payer MEDICARE, MEDICAID, SELFPAY ==
[2018-05-30] VITALS (57 sets, daily range): BP systolic 81–135; BP diastolic 46–119; PULSE 55–133; RESP 14–73; TEMP 36.5–37.7; O2SAT 90–100
--- NOTE | 2018-05-30 12:01 | DI.RAD_ITS ---
SYMPTOMS/DIAGNOSIS: UNSTEADY, PALE, ? ACUTE DISTRESS CHEST: Frontal and lateral views. Comparison is 03/29/18. There is poor inspiration. The heart size and pulmonary vasculature are stable. Pacing wires are stable in position. No focal consolidating infiltrates, effusions or pneumothoraces are identified. The lungs appear hyperinflated with flattened diaphragms suggesting underlying COPD. Degenerative changes are seen in the spine. IMPRESSION: No acute pulmonary process.
[2018-05-30 12:29] LABS: Bilirubin Negative (Negative); Blood Negative (Negative); Clarity Clear; Glucose Negative (Negative); Ketones Negative (Negative); Leukocyte Esterase Negative (Negative); Nitrite Negative (Negative); Specific Gravity 1.015 (1.005-1.025); Urobilinogen 0.2 EU/dL (Up TO 0.2); pH 6.5 (5-8)
[2018-05-30 12:30] LABS: Abs Immature Grans 0.02 k/cumm (0.0-0.09); Absolute Basophil Count 0.04 k/cumm (0.0-0.2); Absolute Lymphocyte Count 1.14 k/cumm (1.2-3.4); Absolute Monocyte Count 1.38 k/cumm (0.11-0.7); Absolute Neutrophil Count 12.16 k/cumm (1.2-6.7); Basophils % 0.3; Eosinophils % 0.7; HCT 41.9 % (40.0-50.0); HGB 14.1 g/dL (13.5-17.5); Immature Grans % 0.1; Lymphocytes % 7.7; Mean Corp. HGB Concentration 33.7 g/dL (32.0-36.0); Mean Corpuscular Hemoglobin 35.7 pg (27.0-33.0); Mean Corpuscular Volume 106.1 fL (80-95); Mean Platelet Volume 10.3 fL (8.0-11.0); Monocytes % 9.3; Neutrophils % 81.9; Platelet Count 187 x1000/uL (130-400); RBC 3.95 m/cumm (4.50-6.00); RBC Distribution Width 13.4 % (11.8-14.1); White Blood Cell Count 14.85 k/cumm (4.4-10.8)
[2018-05-30 12:49] LABS: Diff Comment RBC Morph Reviewed; Macrocytosis 3+; Polychromasia Present; Stomatocytes 2+
--- NOTE | 2018-05-30 12:55 | ED.GENADUL_ITS ---
Discharge Plan Disposition Patient Disposition: [facility] IN[facility] Condition: Fair Discharge Details Chief Complaint: GenMedical Clinical Impression: Weakness, Dizziness, Hypotension Reason For Visit: WEAKNESS,WRIST PAIN Admit Date/Time: 05/30/18 18:23 Admit Provider: Rubens Hernandez Attending Provider: Rubens Hernandez Primary Care Provider: Bennie Adams ED Provider: Yasmine Torres Discharge Data Discharge Date/Time-TO BE ENTERED AT DEPARTURE: 05/30/18 19:16 Medical Decision Making 78-year-old male with a history of diabetes, GERD, A. fib on coumadin, CAD, HLD, COPD, CVA, pacemaker/AICD who presents for weakness and shakiness this morning, worse when sitting on the toilet today. Patient also complaining of chronic right wrist pain for the past month worse with movement. No headache, chest pain, vomiting, diarrhea, urinary symptoms. Blood pressure 96/67 on arrival. Afebrile. Patient is mainly complaining of pain in his right wrist. 2+ pitting edema to b/l LE. Patient states this is chronic and slightly better than usual. No focal deficits. EKG notes a rate of 71, paced, no acute findings. Due to patient's age and comorbidities, will place an IV, bolus IV fluids, labs, urinalysis, CT head and chest. 1600 --labs reviewed and note a white blood cell count of 14, hemoglobin 14, negative troponin, BNP 1332, urinalysis negative. CT head, chest x-ray, right wrist and hand x-ray no acute findings. Wrist and hand x-rays note degenerative changes. Patient given a dose of morphine for his right wrist which he takes at night for chronic leg pain. As per the source of his white blood cell count of 14, I am unsure at this time as to the source. His abdomen is soft and nontender and he has no complaint of vomiting. His right wrist appears to have pain out of proportion to exam and does not appear septic at this time. Admits to a few episodes of diarrhea this week. He denies any recent antibiotic use. His blood pressure is hypotensive but has responded to fluids. Systolic as low as the 80s but now improved to 94/59. No complaint of headache and no altered mental status or fever making meningitis unlikely. 1700 -- d/w hospitalist - accepts pt for admission. Medical Records Medical records reviewed: Yes I reviewed the patient's medical records. Imaging Data Radiologic Study: Attestation: I personally reviewed and interpreted this imaging study as follows: Radiologist's impression: XR chest 2V PA & lateral CHEST: Frontal and lateral views. Comparison is 03/29/18. There is poor inspiration. The heart size and pulmonary vasculature are stable. Pacing wires are stable in position. No focal consolidating infiltrates, effusions or pneumothoraces are identified. The lungs appear hyperinflated with flattened diaphragms suggesting underlying COPD. Degenerative changes are seen in the spine. IMPRESSION: No acute pulmonary process. CT:CT head wo CT BRAIN, NONCONTRAST: Comparison is 10/04/15. There is cerebral atrophy consistent with the patient's age. There are areas of decreased attenuation in the white matter consistent with small vessel ischemic disease. There are areas of lacunar infarcts in the basal ganglia bilaterally. There are areas of encephalomalacia involving the posterior left parietal lobe, the right occipital lobe and the right parietal lobe, most suggestive of old infarcts. There is no acute intracranial hemorrhage, infarct, midline shift or mass effect. The ventricles are intact. The basilar cisterns are patent. The visualized paranasal sinuses are clear. The mastoid air cells are well pneumatized. The calvarium is intact. IMPRESSION: No acute intracranial process. XR Right Hand Complete, 3 or more Views FINDINGS: Bones/joints: No acute fracture. No malalignment. Degenerative changes at the radiocarpal joint. Degenerative changes at the interphalangeal joints. Diffuse demineralization of the bones. Soft tissues: Normal. IMPRESSION: 1. No acute abnormality. 2. Degenerative changes at the radiocarpal joint. XR Right Wrist Complete, 3 or more Views FINDINGS: Bones/joints: Diffusely mineralized lesion of the bones. Degenerative changes at the radiocarpal joint. No acute fracture. No malalignment. Soft tissues: Normal. Vasculature: Vascular calcifications. IMPRESSION: 1. Degenerative changes in the radiocarpal joint. 2. No acute abnormality. Lab Data Lab results reviewed: Yes I reviewed the patient's lab results. ECG Data Attestation: I personally reviewed and interpreted this ECG (s) as follows: Interpretation: 1207 -- 71, paced, no acute findings, QTc 456, QRS 162. HPI General Mode of arrival: EMS . Date/Time Provider Initiated Documentation: 05/30/18 12:12 . Limitations to Documentation: no limitations . Information obtained by: patient . HPI Narrative: Patient is a 78-year-old male with a history of diabetes, GERD, A. fib on coumadin, CAD, HLD, COPD, CVA, pacemaker/AICD who presents for weakness and shakiness this morning. Patient states he was sitting on the toilet this morning when he states he could not get up due to weakness. Patient states he has had dizziness in the mornings for several months but states this was much worse associated with weakness and shakiness this morning. Patient states he was trying to urinate and was not pushing to have a bowel movement. Patient also admits to chronic right wrist pain for the past month. States he has been seen by a doctor before for this and had negative x-rays. Patient states the pain is worse with movement. He denies any new injury or redness to the wrist. Patient denies headache, chest pain, nausea, vomiting, diarrhea, urinary symptoms or vision changes. He states he has occasional shortness of breath over the past years but denies any at present. He states his last bowel movement was yesterday and normal. He states he has also had intermittent episodes of diarrhea. He also admits to chronic cough. He states he ambulates with a cane or walker at baseline. He states he has been eating and drinking less than usual for the past month. Related Data Home Medications Medication Instructions Recorded Confirmed albuterol sulfate 1.25 mg/3 mL 1.25 mg IH QID PRN 01/15/18 05/30/18 solution for nebulization albuterol sulfate HFA 90 1 puff IH Q4H PRN #6.7 gm 01/15/18 05/30/18 mcg/actuation aerosol inhaler digoxin 125 mcg tablet 0.125 mg PO DAILY 01/15/18 05/30/18 ranitidine 150 mg capsule 150 mg PO DAILY 01/15/18 05/30/18 ropinirole 0.25 mg tablet 0.25 mg PO HS tab 01/15/18 05/30/18 warfarin 2.5 mg tablet 2.5 - 5 mg PO DAILY #90 tab 01/29/18 05/30/18 metoprolol tartrate 50 mg tablet 50 mg PO BID #180 tab-cap 03/07/18 05/30/18 tiotropium bromide [Spiriva 1 puff INHALATION DAILY AM 03/29/18 05/30/18 Respimat] diazepam 2 mg tablet 2 mg PO HS PRN #30 tab 04/24/18 05/30/18 simvastatin 20 mg tablet 20 mg PO QPM #90 tab 04/24/18 05/30/18 morphine ER 15 mg tablet,extended 15 mg PO HS PRN #30 tab MDD 1 tab 04/25/18 05/30/18 release magnesium L-lactate ER 84 mg 84 mg PO BID #180 tab NS 05/22/18 05/30/18 tablet,extended release spironolactone 25 mg tablet 25 mg PO DAILY tab 05/23/18 05/30/18 torsemide 20 mg tablet 60 mg PO DAILY #120 tab 05/23/18 05/30/18 acetaminophen [Tylenol Extra 1,000 mg PO BID 05/30/18 05/30/18 Strength] sacubitril-valsartan [Entresto] 1 tab PO BID 05/30/18 05/30/18 Previous Rx's Medication Instructions Recorded albuterol sulfate HFA 90 1 puff IH Q4H PRN #6.7 gm 01/15/18 mcg/actuation aerosol inhaler warfarin 2.5 mg tablet 2.5 - 5 mg PO DAILY #90 tab 01/29/18 metoprolol tartrate 50 mg tablet 50 mg PO BID #180 tab-cap 03/07/18 diazepam 2 mg tablet 2 mg PO HS PRN #30 tab 04/24/18 simvastatin 20 mg tablet 20 mg PO QPM #90 tab 04/24/18 morphine ER 15 mg tablet,extended 15 mg PO HS PRN #30 tab MDD 1 tab 04/25/18 release magnesium L-lactate ER 84 mg 84 mg PO BID #180 tab NS 05/22/18 tablet,extended release torsemide 20 mg tablet 60 mg PO DAILY #120 tab 05/23/18 Allergies Allergy/AdvReac Type Severity Reaction Status Date / Time venom-honey bee Allergy Severe Verified 05/30/18 12:27 oxycodone HCl [From Percocet] Allergy Intermediate Verified 05/30/18 12:27 aspirin AdvReac Mild epistaxis/nose Verified 05/30/18 12:27 bleeds NSAIDS (Non-Steroidal AdvReac Mild epistaxis/nose Verified 05/30/18 12:27 Anti-Inflamma bleeds PARMINDER Inhibitors AdvReac Unknown COUGH Verified 05/30/18 12:27 codeine AdvReac Unknown Verified 05/30/18 12:27 amiodarone AdvReac Insomnia Verified 05/30/18 12:27 diltiazem AdvReac Insomnia Verified 05/30/18 12:27 General Stated Complaint: GenMedical YESIKA: 3 Review of Systems Review of Systems All systems reviewed & are unremarkable except as noted in HPI and below Constitutional Reports as per HPI, Denies chills, Denies fever(s), Reports poor appetite and Reports weakness Eyes Denies blurry vision ENT Denies dizziness, Denies sore throat and Denies throat swelling Cardiovascular Denies chest pain and Denies dyspnea Respiratory Denies dyspnea Gastrointestinal Denies abdominal pain, Denies diarrhea and Denies vomiting Genitourinary Denies hematuria and Denies dysuria Musculoskeletal Denies back pain and Denies numbness Integumentary/Breasts Denies lesions and Denies rash Neurologic Denies dizziness, Denies numbness and Reports weakness Allergic/Immunologic Denies throat swelling ON LICENSE OF [facility] Medical History Cardiomyopathy (Acute) TIA (transient ischemic attack) (Acute) Atrial fibrillation (Chronic) COPD (chronic obstructive pulmonary disease) (Chronic) CVA (cerebral vascular accident) (Chronic) Diabetes (Chronic) GERD (gastroesophageal reflux disease) (Chronic) HTN (hypertension) (Chronic) Surgical History AICD (automatic cardioverter/defibrillator) present (Acute) Pacemaker (Acute) Extraction of cataract LEFT HEART CARDIAC CATH Repair of inguinal hernia Social History Smoking/Tobacco Use Status: Never alcohol intake: never substance use type: does not use Exam Const General: cooperative and other (appears uncomfortable at times c/o R wrist pain) Orientation: alert, awake and oriented x3 HENMT Head: normal to inspection Ears: hearing grossly normal bilaterally, external ears normal and TM's normal bilaterally General nose exam: external nose normal Face and sinus: normal facial exam Mouth: oral mucosae normal Teeth and gingiva: dentition normal Throat: posterior oropharynx normal Eyes General: appearance normal, both eyes and all related structures Eyelids: eyelids normal Pupils: PERRL EOM: EOM intact bilaterally Neck Neck: normal visual inspection Lymphatic: no lymphadenopathy noted Chest Chest: normal inspection of the chest Resp Effort & Inspection: normal respiratory effort and able to speak in complete sentences Auscultation: clear to auscultation bilaterally Cardio Rate: regular rate Rhythm: regular rhythm GI Inspection: normal to inspection Palpation: soft, not firm, no guarding, no hepatosplenomegaly, no masses and nontender Auscultation: normal bowel sounds Back/Spine/Pelvis Thoracic/Lumbar Spine: thoracic and lumbar spine normal to inspection Skin General skin exam: no rashes or lesions noted Neuro General: alert and awake Cognition: normal cognition Speech: speech normal Gait: normal gait Motor: muscle tone normal throughout Sensory Exam: no sensory deficits noted Extrem General: full ROM and edema Laterality: bilateral (2+ pitting) Right upper extremity: wrist (no erythema to wrist or hand) Details: normal to inspection, tenderness Location: of the distal radius, of the distal ulna, of the dorsal wrist and of the volar wrist and abnormal ROM Details: pain with active ROM during and pain with passive ROM during; no swelling, no unusual warmth, no ecchymosis and no crepitus and hand Details: normal to inspection, tenderness Location: of the dorsal hand and vascular exam Details: radial pulse present, ulnar pulse present and normal capillary refill; not cool and no cyanosis Psych Appearance: grossly normal Mental Status: mental status grossly normal Speech and Movement: speech and movement normal Affect: normal affect Thought Process: normal Course Vital Signs Temperature 97.7 F 05/30/18 11:54 Pulse 73 05/30/18 11:54 Respiratory Rate 20 05/30/18 11:54 Blood Pressure 96/67 L 05/30/18 11:54 Pulse Oximetry 100 05/30/18 11:54 Temperature 97.7 F 05/30/18 11:54 Temperature Source Temporal Artery Scan 05/30/18 11:54 Pulse 73 05/30/18 11:54 Respiratory Rate 20 05/30/18 11:54 Respiratory Effort Non-Labored 05/30/18 11:54 Blood Pressure 96/67 L 05/30/18 11:54 Blood Pressure Position Sitting 05/30/18 11:54 Pulse Oximetry 100 05/30/18 11:54 Oxygen Delivery Method Room Air 05/30/18 11:54 Oxygen Flow Rate 0 05/30/18 11:54
[2018-05-30 13:06] LABS: Digoxin 1.85 ng/mL (0.90-2.00)
[2018-05-30 13:10] LABS: NT-proBNP 1332 pg/mL
--- NOTE | 2018-05-30 13:11 | DI.CT_ITS ---
SYMPTOMS/DIAGNOSIS: WEAKNESS, SHAKING, ? ACUTE PROCESS CT BRAIN, NONCONTRAST: Comparison is 10/04/15. There is cerebral atrophy consistent with the patient's age. There are areas of decreased attenuation in the white matter consistent with small vessel ischemic disease. There are areas of lacunar infarcts in the basal ganglia bilaterally. There are areas of encephalomalacia involving the posterior left parietal lobe, the right occipital lobe and the right parietal lobe, most suggestive of old infarcts. There is no acute intracranial hemorrhage, infarct, midline shift or mass effect. The ventricles are intact. The basilar cisterns are patent. The visualized paranasal sinuses are clear. The mastoid air cells are well pneumatized. The calvarium is intact. IMPRESSION: No acute intracranial process. The findings were discussed with the Emergency Department on the date of the examination.
[2018-05-30 13:12] LABS: ALT 12 U/L (12-78); AST 32 U/L (15-37); Albumin 3.1 g/dL (3.4-5.0); Alkaline Phosphatase 68 U/L (46-116); Anion Gap 9.7 mmol/L (3-11); BUN 30 mg/dL (7-18); Bilirubin, Total 0.5 mg/dL (0.2-1.0); CO2 27.3 mmol/L (21.0-32.0); CREATININE 1.33 mg/dL (0.70-1.30); Calcium 8.8 mg/dL (8.5-10.1); Chloride 100 mmol/L (98-107); Estimated GFR 52.28 (mL/min/1.73m2); Glucose 187 mg/dL (70-100); Potassium 5.5 mmol/L (3.5-5.1); Sodium 137 mmol/L (136-145); Total Protein 7.2 g/dL (6.4-8.2)
[2018-05-30 13:13] LABS: Troponin I < 0.02 ng/mL (0.00-0.06)
[2018-05-30 13:14] LABS: INR 3.5 (0.9-1.1)
[2018-05-30 14:00] LABS: Potassium 4.8 mmol/L (3.5-5.1)
[2018-05-30] MEDS: Normal Saline 250 ML 500 ML IV (14:32)
--- NOTE | 2018-05-30 14:32 | NUR.NOTE ---
patient right wrist pain has been addressed with heat, and patient reports pain not improving, will inform md Nursing Note:
[2018-05-30] MEDS: Acetaminophen 500 MG TAB 1000 MG PO ×2 (14:38→20:10)
--- NOTE | 2018-05-30 15:58 | DI.RAD_ITS ---
SYMPTOM/DIAGNOSIS: CHRONIC PAIN, RIGHT WRIST: Three views. Comparison is made with 03/22/18. No acute fracture or dislocation is seen. There are mild degenerative changes seen at the radial carpal joint and the first carpal metacarpal joint. The bones appear mildly demineralized. There are vascular calcifications present. IMPRESSION: No acute abnormality. Osteoarthritis of the right wrist. RIGHT HAND: Three views. No acute or healing fracture or dislocation is identified. There are degenerative changes of the wrist, particularly at the distal interphalangeal joints of the right index and middle fingers. The metacarpal phalangeal joints appear well maintained. The bones appear mildly osteopenic. The soft tissues are unremarkable. IMPRESSION: No acute abnormality. Moderate osteoarthritis of the right hand.
[2018-05-30] MEDS: MORPHine 10 MG/ML VIAL 4 MG IVP (16:23)
--- NOTE | 2018-05-30 16:27 | NUR.NOTE ---
Nursing Note: patient medicated per MD order
[2018-05-30 16:53] LABS: ESR 48 MM/HR (1-20)
--- NOTE | 2018-05-30 16:55 | DI.VRAD_ITS ---
EXAM: XR Right Wrist Complete, 3 or more Views EXAM DATE/TIME: 05/30/2018 4:36 PM CLINICAL HISTORY: 78 years old, male; Pain; Wrist; Right; Patient HX: Chronic pain, per PT: Gotten a lot worse than normal; Additional info: R/O acute process TECHNIQUE: XR Right wrist 3 or more views. COMPARISON: CR XR wrist RT complete 03/22/2018 12:18 PM FINDINGS: Bones/joints: Diffusely mineralized lesion of the bones. Degenerative changes at the radiocarpal joint. No acute fracture. No malalignment. Soft tissues: Normal. Vasculature: Vascular calcifications. IMPRESSION: 1. Degenerative changes in the radiocarpal joint. 2. No acute abnormality. Dictated and Authenticated by: Eriberto Ibarra MD. Ordering:JOCELYNE Underwood MD
--- NOTE | 2018-05-30 16:57 | DI.VRAD_ITS ---
EXAM: XR Right Hand Complete, 3 or more Views EXAM DATE/TIME: 05/30/2018 4:36 PM CLINICAL HISTORY: 78 years old, male; Pain; Hand; Right; Patient HX: Chronic, per PT: Pain has gotten a lot worse; Additional info: R/O acute process TECHNIQUE: XR Right hand 3 or more views. COMPARISON: CR XR wrist RT complete 03/22/2018 12:18 PM FINDINGS: Bones/joints: No acute fracture. No malalignment. Degenerative changes at the radiocarpal joint. Degenerative changes at the interphalangeal joints. Diffuse demineralization of the bones. Soft tissues: Normal. IMPRESSION: 1. No acute abnormality. 2. Degenerative changes at the radiocarpal joint. Dictated and Authenticated by: Eriberto Ibarra MD. Ordering:JOCELYNE Underwood MD
--- NOTE | 2018-05-30 17:07 | NUR.NOTE ---
patient has voided using the urinal with RN assistance, 1000mLs noted Nursing Note:
[2018-05-30 17:55] LABS: Lactate-non-spesis 1.8 mmol/L (0.6-1.4)
--- NOTE | 2018-05-30 18:08 | W.PM.HP.N ---
Date of service: 05/30/18 Time of Service: 18:08 Assessment and Plan (1) Weakness: Current visit: Yes Status: Acute Weakness. Nonspecific and subacute. I might be suspicious of medication factors and the Entresto is the most recent addition and quite possibly the culprit. I think we should probably try making some adjustments in his medication regimen but do so cautiously and slowly given the multitude of problems. I will start simply by holding the Entresto. As to the acute on chronic wrist pain it is possible something is brewing here what with the physical findings and leukocytosis and elevated sedimentation rate a septic arthritis is always the first consideration but there is certainly not enough on exam at present to make this diagnosis if symptoms persist or if findings escalate I would have the joint tapped. Will treat symptomatically for the moment Slightly elevated INR as noted, will hold Coumadin and monitor Slightly elevated potassium noted, will monitor off Entresto. I did review advanced directives. Patient has AICD but requests no intubation. History of Present Illness Chief Complaint: weakness Narrative: Patient is a 78-year-old male with multiple medical problems including congestive heart failure. He has had several weeks of progressive weakness. There have been some adjustments in his medications recently and more particularly he was started about 2 weeks ago on Entresto. Today he felt that he just could not manage any longer at home and came to the emergency room. In addition, he has had 1 day of aggravation of chronic pain in the right wrist. In the emergency room film of the wrist was negative. White count of 14,000 and sed rate of 48 were noted. He was given 4 mg of morphine but continues to complain of wrist pain. Blood pressures have been in the 90s systolic, which is close to baseline according to his daughter he was admitted for further evaluation and management Review of Systems Review of Systems All systems reviewed & are unremarkable except as noted in HPI and below PFSH Surgical History Extraction of cataract LEFT HEART CARDIAC CATH Repair of inguinal hernia Social History Smoking/Tobacco Use Status: Never Meds Home Medications Medication Instructions Recorded Confirmed Type Inhaler, Assist Devices #1 aer 12/27/17 05/09/18 Clinic [Aerochamber Mini] albuterol sulfate 1.25 mg/3 mL 1.25 mg IH QID PRN 01/15/18 05/30/18 History solution for nebulization albuterol sulfate HFA 90 1 puff IH Q4H PRN #6.7 gm 01/15/18 05/30/18 Rx mcg/actuation aerosol inhaler digoxin 125 mcg tablet 0.125 mg PO DAILY 01/15/18 05/30/18 History ranitidine 150 mg capsule 150 mg PO DAILY 01/15/18 05/30/18 History ropinirole 0.25 mg tablet 0.25 mg PO HS tab 01/15/18 05/30/18 History warfarin 2.5 mg tablet 2.5 - 5 mg PO DAILY #90 tab 01/29/18 05/30/18 Rx metoprolol tartrate 50 mg tablet 50 mg PO BID #180 tab-cap 03/07/18 05/30/18 Rx tiotropium bromide [Spiriva 1 puff INHALATION DAILY AM 03/29/18 05/30/18 History Respimat] diazepam 2 mg tablet 2 mg PO HS PRN #30 tab 04/24/18 05/30/18 Rx simvastatin 20 mg tablet 20 mg PO QPM #90 tab 04/24/18 05/30/18 Rx morphine ER 15 mg tablet,extended 15 mg PO HS PRN #30 tab MDD 1 tab 04/25/18 05/30/18 Rx release magnesium L-lactate ER 84 mg 84 mg PO BID #180 tab NS 05/22/18 05/30/18 Rx tablet,extended release spironolactone 25 mg tablet 25 mg PO DAILY tab 05/23/18 05/30/18 History torsemide 20 mg tablet 60 mg PO DAILY #120 tab 05/23/18 05/30/18 Rx acetaminophen [Tylenol Extra 1,000 mg PO BID 05/30/18 05/30/18 History Strength] sacubitril-valsartan [Entresto] 1 tab PO BID 05/30/18 05/30/18 History Allergies Allergy/AdvReac Type Severity Reaction Status Date / Time venom-honey bee Allergy Severe Verified 05/30/18 12:27 oxycodone HCl [From Percocet] Allergy Intermediate Verified 05/30/18 12:27 aspirin AdvReac Mild epistaxis/nose Verified 05/30/18 12:27 bleeds NSAIDS (Non-Steroidal AdvReac Mild epistaxis/nose Verified 05/30/18 12:27 Anti-Inflamma bleeds PARMINDER Inhibitors AdvReac Unknown COUGH Verified 05/30/18 12:27 codeine AdvReac Unknown Verified 05/30/18 12:27 amiodarone AdvReac Insomnia Verified 05/30/18 12:27 diltiazem AdvReac Insomnia Verified 05/30/18 12:27 Exam Narrative Exam Narrative: Blood pressure 94/59, pulse 72, respirations 18, afebrile, O2 sat 96% on room air. HEENT is unremarkable. Neck supple. Lungs clear. Heart irregularly irregular abdomen is soft and nontender. and rectal exam deferred extremities 1+ pedal edema. Neurological patient is alert and oriented and moves all 4 extremities. The right wrist is slightly puffy but no induration, no redness and no warmth. There is pain with passive range of motion Laboratory: White count 14.8 hematocrit 41 Results Labs : 05/30/18 12:19 05/30/18 13:30 Laboratory Results - last 24 hr 05/30/18 05/30/18 05/30/18 12:19 12:19 12:19 WBC 14.85 H RBC 3.95 L Hgb 14.1 Hct 41.9 MCV 106.1 H MCH 35.7 H MCHC 33.7 RDW 13.4 Plt Count 187 MPV 10.3 Immature Gran % 0.1 Neutrophils % 81.9 Lymphocytes % 7.7 Monocytes % 9.3 Eosinophils % 0.7 Basophils % 0.3 Absolute Neutrophils 12.16 H Absolute Lymphocytes 1.14 L Absolute Monocytes 1.38 H Absolute Eosinophils 0.10 Absolute Basophils 0.04 Differential Comment Rbc morph reviewed RBC Morphology See below Polychromasia Present Macrocytosis 3+ Stomatocytes 2+ ESR PT INR Sodium 137 Potassium 5.5 H Chloride 100 Carbon Dioxide 27.3 Anion Gap 9.7 BUN 30 H Creatinine 1.33 H Estimated GFR/1.73 m2 52.28 Glucose 187 H Lactate Calcium 8.8 Magnesium 2.0 Total Bilirubin 0.5 AST 32 ALT 12 Alkaline Phosphatase 68 Troponin I < 0.02 NT-Pro-B Natriuret Pep 1332 H Total Protein 7.2 Albumin 3.1 L Urine Color Urine Clarity Urine pH Ur Specific [place] Urine Protein Urine Ketones Urine Blood Urine Nitrite Urine Bilirubin Urine Urobilinogen Ur Leukocyte Esterase Urine Glucose Digoxin 05/30/18 05/30/18 05/30/18 12:19 12:19 12:20 WBC RBC Hgb Hct MCV MCH MCHC RDW Plt Count MPV Immature Gran % Neutrophils % Lymphocytes % Monocytes % Eosinophils % Basophils % Absolute Neutrophils Absolute Lymphocytes Absolute Monocytes Absolute Eosinophils Absolute Basophils Differential Comment RBC Morphology Polychromasia Macrocytosis Stomatocytes ESR 48 H PT 35.0 H INR 3.5 H Sodium Potassium Chloride Carbon Dioxide Anion Gap BUN Creatinine Estimated GFR/1.73 m2 Glucose Lactate Calcium Magnesium Total Bilirubin AST ALT Alkaline Phosphatase Troponin I NT-Pro-B Natriuret Pep Total Protein Albumin Urine Color Yellow Urine Clarity Clear Urine pH 6.5 Ur Specific [place] 1.015 Urine Protein Negative Urine Ketones Negative Urine Blood Negative Urine Nitrite Negative Urine Bilirubin Negative Urine Urobilinogen 0.2 Ur Leukocyte Esterase Negative Urine Glucose Negative Digoxin 05/30/18 05/30/18 05/30/18 12:25 13:30 17:49 WBC RBC Hgb Hct MCV MCH MCHC RDW Plt Count MPV Immature Gran % Neutrophils % Lymphocytes % Monocytes % Eosinophils % Basophils % Absolute Neutrophils Absolute Lymphocytes Absolute Monocytes Absolute Eosinophils Absolute Basophils Differential Comment RBC Morphology Polychromasia Macrocytosis Stomatocytes ESR PT INR Sodium Potassium 4.8 Chloride Carbon Dioxide Anion Gap BUN Creatinine Estimated GFR/1.73 m2 Glucose Lactate 1.8 H Calcium Magnesium Total Bilirubin AST ALT Alkaline Phosphatase Troponin I NT-Pro-B Natriuret Pep Total Protein Albumin Urine Color Urine Clarity Urine pH Ur Specific [place] Urine Protein Urine Ketones Urine Blood Urine Nitrite Urine Bilirubin Urine Urobilinogen Ur Leukocyte Esterase Urine Glucose Digoxin 1.85 Last Vital Signs Temp 36.5 C 05/30/18 11:54 Pulse 72 05/30/18 16:57 Resp 18 05/30/18 16:57 BP 94/59 L 05/30/18 16:57 Pulse Ox 96 05/30/18 16:57
[2018-05-30] MEDS: HYDROmorphone 2 MG/ML VIAL 1 MG IVP ×2 (18:41→19:05)
[2018-05-30] MEDS: Normal Saline 250 ML IV (18:44)
[2018-05-30] MEDS: Ketorolac 30 MG/ML VIAL IVP (18:48)
[2018-05-30] MEDS: Lidocaine 5% Patch 1 PATCH TP (19:06)
[2018-05-30] MEDS: Magnesium Lactate-SR 84 MG TABCR PO (20:10)
[2018-05-30] MEDS: Metoprolol 50 MG TAB PO (20:10)
[2018-05-30] MEDS: rOPINIRole 0.5 MG TAB 0.25 MG PO (22:09)
[2018-05-30 22:21] LABS: C-Reactive Protein 1.57 mg/dL (0.0-0.3)
--- NOTE | 2018-05-30 23:35 | NUR.NOTE ---
Nursing Note: Pt refused his cholesterol med, feels the told him this could be causing his acute medical issue. I believe, according to the H&P, the is suspicious of Entresto. This medication is not on the pt's med list at this time. Pt would like to clarify with in am and refused the statin drug.
[2018-05-31] VITALS (11 sets, daily range): BP systolic 65–105; BP diastolic 44–64; PULSE 50–71; RESP 16–19; TEMP 36.4–37; O2SAT 92–100
[2018-05-31] MEDS: Normal Saline 250 ML IV (00:27)
[2018-05-31 07:34] LABS: HCT 38.9 % (40.0-50.0); HGB 13.1 g/dL (13.5-17.5); Mean Corp. HGB Concentration 33.7 g/dL (32.0-36.0); Mean Corpuscular Hemoglobin 35.6 pg (27.0-33.0); Mean Corpuscular Volume 105.7 fL (80-95); Mean Platelet Volume 10.3 fL (8.0-11.0); Platelet Count 165 x1000/uL (130-400); RBC 3.68 m/cumm (4.50-6.00); RBC Distribution Width 13.4 % (11.8-14.1); White Blood Cell Count 10.94 k/cumm (4.4-10.8)
[2018-05-31] MEDS: Normal Saline Flush 10 ML SYR IVP ×3 (07:45→19:28)
[2018-05-31 07:50] LABS: Anion Gap 7.8 mmol/L (3-11); BUN 34 mg/dL (7-18); CO2 29.2 mmol/L (21.0-32.0); CREATININE 1.76 mg/dL (0.70-1.30); Calcium 8.7 mg/dL (8.5-10.1); Chloride 104 mmol/L (98-107); Estimated GFR 37.84 (mL/min/1.73m2); Glucose 119 mg/dL (70-100); Potassium 4.2 mmol/L (3.5-5.1); Sodium 141 mmol/L (136-145)
[2018-05-31] MEDS: Acetaminophen 500 MG TAB 1000 MG PO ×2 (08:14→19:30)
[2018-05-31] MEDS: Patch Removal 1 EACH TP (08:19)
[2018-05-31 11:59] LABS: Prothrombin Time 20.2 sec (9.3-11.0)
[2018-05-31 12:11] LABS: Lactate 1.7 mmol/L (0.6-1.4)
[2018-05-31] MEDS: traMADol 50 MG TAB PO ×2 (14:18→22:21)
--- NOTE | 2018-05-31 14:26 | PT.INIE ---
Date of service: 05/31/18 Time of Service: 14:00 PT Notes Inpatient Physical Therapy Evaluation Date: 05/31/18 Referring Doctor: Dr. Vanna Gar PT Orders: PT CONSULT: eval and treat Precautions: fall, standard Patient Profile/Admitting Diagnosis: Patient admitted 05/30/18 from ER due to progressive weakness. He was found to be hypotensive and was admitted for medical care. PMHX: CHF, GERD, type 2 diabetes, A. fib, on chronic anticoagulation, COPD, status post CVA, pacemaker/AICD placement Social History/Home Situation: Patient lives alone in [place] in single level home with no steps to enter. States that he is able to complete his own meal preparation, although his daughter, who is present at time of evaluation, does his grocery shopping for him. He uses a wheeled walker first thing in the morning, and otherwise uses a cane throughout the day. He participated in cardiac rehab last year, although admits to a sedentary lifestyle since then. Equipment Owned/DME: Handicap accessible home, FW W, cane Subjective: Srini states that he is feeling extremely fatigued today. He has not been able to walk since yesterday morning. He reports significant pain in the right wrist, although denies history of trauma. Objective: General Observation: Resting in bed with right upper extremity elevated. No lines. Patient's daughter is present at time of evaluation. Mental Status: A and O x3 Pain: Severe right wrist pain Vital Signs: Resting BP is 103/58, heart rate 70, SaO2 95% on room air. After standing activities, blood pressure is 97/58, heart rate 86 bpm ROM: Right Upper Extremity: Shoulder flexion allows 120 degrees. Elbow motion is within normal limits. Patient refuses right upper extremity range of motion due to severe wrist pain. He is able to fully open the right hand and perform partial front end driver. Left Upper Extremity: Shoulder flexion to 150 degrees. Elbow wrist and hand motion are within normal limits. Right Lower Extremity: Hip flexion 100 degrees. Knee and ankle motion are within functional limits. Left Lower Extremity: Hip flexion 100 degrees. Knee and ankle motion are within functional limits. Strength: Right Upper Extremity: Shoulder flexion 3-/5. Resisted strength testing for the upper extremity was not performed due to severity of right wrist pain. Left Upper Extremity: Left shoulder flexion 3-/5. Biceps 4/5. Triceps 4-/5. Pile Driver Operator is weak. Right Lower Extremity: Hip flexion 4/5 bilaterally. Quads 3/5. Patient is functionally able to perform SLR for 2 repetitions prior to onset of fatigue. Ankle dorsiflexion is 5/5. Hamstrings 3+/5. Left Lower Extremity: Hip flexion 4/5 bilaterally. Quads 3/5. Patient is functionally able to perform SLR for 2 repetitions prior to onset of fatigue. Ankle dorsiflexion is 5/5. Hamstrings 3+/5.[] Palpation: Patient has mild redness over the dorsum of the right wrist. He has mild, non-pitting edema throughout the wrist and hand. Bed Mobility/Transfers: Supine to sit: Supervision Sit to supine: Supervision Scooting in bed: Mod assist Sit to stand: Supervision Stand to sit: Supervision Bed to chair: Patient refused Gait: Patient refuses ambulation today, stating he feels too weak. He is able to statically stand times 2 minutes, with weightbearing through left upper extremity to wheeled walker. He demonstrates protective positioning of the right upper extremity throughout session. Balance: Static Sitting: Normal Dynamic Sitting: Good Static Standing: Fair Dynamic Standing: Fair Special Tests: Mobility Limitations Standardized Measure [facility] AM-PAC 6 clicks Basic Mobility Inpatient Short Form: Raw Score: 17 standardized Score: 42.12 CMS Score: 51% CMS Modifier: CK Informed Consent/Education: Patient instructed in purpose of PT consult and plan of care. Treatment: Today's session consisted of evaluation, followed by instruction in early therapeutic exercise program. Patient completed activities as noted on flowsheet, with both supine and seated exercises, as well as sustained standing for improved activity tolerance in weightbearing position. He was instructed in ankle pumps and heel slides for completion between PT sessions. Assessment: Patient is a 78 year old male referred to physical therapy services with the diagnosis of weakness. Patient presents with clinical signs and symptoms consistent with diminished functional mobility due to weakness related to multiple medical issues, as demonstrated by the following impairment level findings: 1. Decreased upper extremity strength 2. Decreased lower extremity strength 3. Decreased activity tolerance 4. hypotension limiting tolerance to functional movement 5. Persistent right wrist pain Impairments are contributing to the following functional limitations: 1. Unable to tolerate household distance ambulation 2. Unable to independently perform bed mobility 3. Unable to tolerate prolonged standing 4. Unable to tolerate community distance ambulation 5. Fall risk AMPAC score 51% deficit. Patient is assessed as a Moderate 10550 complexity based on the following: History: 78-year-old male admitted for weakness, with significant limitations in functional mobility. His presentation is complicated by an extensive medical history, including type 2 diabetes, A. fib, on chronic anticoagulation, COPD, status post CVA, pacemaker/AICD placement Examination: Functional limitations as noted above Presentation: Evolving Decision Making: Moderate complexity Goals: Goals X1 week 1. Supine-Sit independent 2. Sit-Supine independent 3. Sit-Stand independent 4. Stand-Sit independent 5. Bed-Chair supervision with FWW 6. Chair-Bed supervision with FWW 7. Gait supervision with FWW x 50' Plan of Care/Treatment Plan: 1-2x/day, 7 days/week x 1 week. Plan of care has been reviewed with the [employer]AR[employer] TALLY CLERK providing the service under Physical Therapy direction. Initiate Physical Therapy intervention for strengthening, bed mobility, transfers, gait, stairs, balance training, use of assistive device. DISCHARGE RECOMMENDATIONS: Home with continued support from family. Recommend resuming home health PT for continued strengthening and cardiovascular retraining TREATMENT CODE/TIME: 35 minutes (35401, 88253) G Codes in the area mobility of walking and moving around: current status [id number] CK; projected status GP [id number]. Discharge status (if discharging) GP [id number] CK. Agnieszka Wahl, PT, DPT
--- NOTE | 2018-05-31 14:32 | PDOC.CMIN ---
Care Management Initial Assess REASON FOR HOSPITALIZATION:: Weakness, Wrist pain PAST MEDICAL HISTORY/PAST SURGICAL HISTORY:: Medical: Cardiomyopathy (Acute), TIA (transient ischemic attack) (Acute). Atrial fibrillation (Chronic), COPD (chronic obstructive pulmonary disease) (Chronic), CVA (cerebral vascular accident) (Chronic), Diabetes (Chronic), GERD (gastroesophageal reflux disease) (Chronic), HTN (hypertension) (Chronic). Surgical: AICD (automatic cardioverter/defibrillator) present (Acute). Pacemaker (Acute), Extraction of cataract, LEFT HEART CARDIAC CATH. Repair of inguinal hernia PREVIOUS FUNCTIONAL STATUS/SOCIAL/FAMILY SUPPORTS:: Lives alone at his home in [place]. Still drives amd handles his own finances. Daughter, Juju, is supportive and helps with whatever he may need. CURRENT FUNCTIONAL STATUS:: Lying in bed stating he still feels weak and his wrist continues to hurt. Right finger appear edematous. ADVANCE DIRECTIVES:: None on file Has patient been provided with information about the portal?: No Did the patient sign up for the portal?: No CODE STATUS:: DNI INSURANCE COVERAGE / FINANCIAL ISSUES:: Medicare. Medicaid CURRENT HOME/COMMUNITY SERVICES/EQUIPMENT:: No current services. Owns a walker and a cane but does not need to use them at this time PRIMARY CARE PHYSICIAN:: Eriberto Pearson - Bennie Adams MD POTENTIAL DISCHARGE NEEDS:: D/C insructions, Follow up appointments PATIENT/FAMILY EDUCATION NEEDS:: DC Instructions and any new medication ANTICIPATED BARRIERS TO DISCHARGE:: None identified TRANSPORTATION:: Family will transport PLAN:: Return home when medically cleaed for discharge.
[2018-05-31 14:37] LABS: Uric Acid 12.6 mg/dL (3.5-7.2)
--- NOTE | 2018-05-31 14:41 | IN_ITS ---
Date of service: 05/31/18 Time of Service: 14:00 PT Notes Inpatient Physical Therapy Evaluation Date: 05/31/18 Referring Doctor: Dr. Vanna Gar PT Orders: PT CONSULT: eval and treat Precautions: fall, standard Patient Profile/Admitting Diagnosis: Patient admitted 05/30/18 from ER due to progressive weakness. He was found to be hypotensive and was admitted for medical care. PMHX: CHF, GERD, type 2 diabetes, A. fib, on chronic anticoagulation, COPD, status post CVA, pacemaker/AICD placement Social History/Home Situation: Patient lives alone in [place] in single level home with no steps to enter. States that he is able to complete his own meal preparation, although his daughter, who is present at time of evaluation, does his grocery shopping for him. He uses a wheeled walker first thing in the morning, and otherwise uses a cane throughout the day. He participated in cardiac rehab last year, although admits to a sedentary lifestyle since then. Equipment Owned/DME: Handicap accessible home, FW W, cane Subjective: Srini states that he is feeling extremely fatigued today. He has not been able to walk since yesterday morning. He reports significant pain in the right wrist, although denies history of trauma. Objective: General Observation: Resting in bed with right upper extremity elevated. No lines. Patient's daughter is present at time of evaluation. Mental Status: A and O x3 Pain: Severe right wrist pain Vital Signs: Resting BP is 103/58, heart rate 70, SaO2 95% on room air. After standing activities, blood pressure is 97/58, heart rate 86 bpm ROM: Right Upper Extremity: Shoulder flexion allows 120 degrees. Elbow motion is within normal limits. Patient refuses right upper extremity range of motion due to severe wrist pain. He is able to fully open the right hand and perform partial top ironer. Left Upper Extremity: Shoulder flexion to 150 degrees. Elbow wrist and hand motion are within normal limits. Right Lower Extremity: Hip flexion 100 degrees. Knee and ankle motion are within functional limits. Left Lower Extremity: Hip flexion 100 degrees. Knee and ankle motion are within functional limits. Strength: Right Upper Extremity: Shoulder flexion 3-/5. Resisted strength testing for the upper extremity was not performed due to severity of right wrist pain. Left Upper Extremity: Left shoulder flexion 3-/5. Biceps 4/5. Triceps 4-/5. Waste Machine Tender is weak. Right Lower Extremity: Hip flexion 4/5 bilaterally. Quads 3/5. Patient is functionally able to perform SLR for 2 repetitions prior to onset of fatigue. Ankle dorsiflexion is 5/5. Hamstrings 3+/5. Left Lower Extremity: Hip flexion 4/5 bilaterally. Quads 3/5. Patient is functionally able to perform SLR for 2 repetitions prior to onset of fatigue. Ankle dorsiflexion is 5/5. Hamstrings 3+/5.[] Palpation: Patient has mild redness over the dorsum of the right wrist. He has mild, non-pitting edema throughout the wrist and hand. Bed Mobility/Transfers: Supine to sit: Supervision Sit to supine: Supervision Scooting in bed: Mod assist Sit to stand: Supervision Stand to sit: Supervision Bed to chair: Patient refused Gait: Patient refuses ambulation today, stating he feels too weak. He is able to statically stand times 2 minutes, with weightbearing through left upper extremity to wheeled walker. He demonstrates protective positioning of the right upper extremity throughout session. Balance: Static Sitting: Normal Dynamic Sitting: Good Static Standing: Fair Dynamic Standing: Fair Special Tests: Mobility Limitations Standardized Measure [facility] AM-PAC 6 clicks Basic Mobility Inpatient Short Form: Raw Score: 17 standardized Score: 42.12 CMS Score: 51% CMS Modifier: CK Informed Consent/Education: Patient instructed in purpose of PT consult and plan of care. Treatment: Today's session consisted of evaluation, followed by instruction in early therapeutic exercise program. Patient completed activities as noted on flowsheet, with both supine and seated exercises, as well as sustained standing for improved activity tolerance in weightbearing position. He was instructed in ankle pumps and heel slides for completion between PT sessions. Assessment: Patient is a 78 year old male referred to physical therapy services with the diagnosis of weakness. Patient presents with clinical signs and symptoms consistent with diminished functional mobility due to weakness related to multiple medical issues, as demonstrated by the following impairment level findings: 1. Decreased upper extremity strength 2. Decreased lower extremity strength 3. Decreased activity tolerance 4. hypotension limiting tolerance to functional movement 5. Persistent right wrist pain Impairments are contributing to the following functional limitations: 1. Unable to tolerate household distance ambulation 2. Unable to independently perform bed mobility 3. Unable to tolerate prolonged standing 4. Unable to tolerate community distance ambulation 5. Fall risk AMPAC score 51% deficit. Patient is assessed as a Moderate 75947 complexity based on the following: History: 78-year-old male admitted for weakness, with significant limitations in functional mobility. His presentation is complicated by an extensive medical history, including type 2 diabetes, A. fib, on chronic anticoagulation, COPD, status post CVA, pacemaker/AICD placement Examination: Functional limitations as noted above Presentation: Evolving Decision Making: Moderate complexity Goals: Goals X1 week 1. Supine-Sit independent 2. Sit-Supine independent 3. Sit-Stand independent 4. Stand-Sit independent 5. Bed-Chair supervision with FWW 6. Chair-Bed supervision with FWW 7. Gait supervision with FWW x 50' Plan of Care/Treatment Plan: 1-2x/day, 7 days/week x 1 week. Plan of care has been reviewed with the ALINING INSPECTOR providing the service under Physical Therapy direction. Initiate Physical Therapy intervention for strengthening, bed mobility, transfers, gait, stairs, balance training, use of assistive device. DISCHARGE RECOMMENDATIONS: Home with continued support from family. Recommend resuming home health PT for continued strengthening and cardiovascular retraining TREATMENT CODE/TIME: 35 minutes (27882, [id number]) G Codes in the area mobility of walking and moving around: current status [id number] CK; projected status GP [id number]. Discharge status (if discharging) GP [id number] CK. Agnieszka Wahl, PT, DPT
[2018-05-31] MEDS: Colchicine 0.6 MG TAB PO ×2 (15:09→19:30)
[2018-05-31 15:20] LABS: Lactate 1.6 mmol/L (0.6-1.4)
[2018-05-31] MEDS: DICLOFENAC 1% GEL 100 GM TUBE TP (17:53)
[2018-05-31 18:13] LABS: Lactate 2.2 mmol/L (0.6-1.4)
--- NOTE | 2018-05-31 19:13 | PGE_ITS ---
Date of Service Date of service: 05/31/18 Time of Service: 15:15 Assessment and Plan (1) Weakness: Current visit: Yes Status: Acute Agree that this is possibly due to polypharmacy/addition of entresto. (2) Right wrist pain: Current visit: Yes Status: Acute Clinically, most likely gout. Started on colchicine. Pain relief with ultram and diclofenac gel. Cannot tolerate narcotics due to BP's on the lower side. Orthopedics consult. Will need PT/OT. (3) Cardiomyopathy: Current visit: No Status: Chronic Euvolemic, s/p AICD. EF is not easily available in our medical record. Will continue to hold entresto and diuresis at this time. Will reassess tomorrow. (4) Controlled diabetes mellitus: Current visit: No Status: Acute add a sliding scale (5) Essential hypertension: Current visit: No Status: Acute BP's on the lower side today - meds on hold (6) AF (paroxysmal atrial fibrillation): Current visit: No Status: Chronic Rate controlled. Continue anticoagluation with coumadin. 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 PT/OT consulted - may need placement (9) DVT prophylaxis: Current visit: Yes Status: Acute On therapeutic coumadin Subjective Interval history since last seen: The patient complains of excruciating pain in his R wrist. He states that he did injury it about 1 month ago, but that it was a sprain, and that he wore a brace following that injury and used voltaren gel, with relief. He does not recall re-injury to the wrist. He does have a history of gout. He complains of feeling very weak. Denies dizziness, chest pain, shortness of breath, nausea, vomiting. Exam Narrative Exam Narrative: General: Elderly male, forgetful, laying uncomfortably in bed HEENT: EOMI, MMM Heart: Irregularly irregular rhythm, + RICH Lungs: CTAB GI: abdomen is soft, nontender, nondistended Extremities: R wrist is edematous with now mild erythema, warmth and severe TTP Objective Objective Clinical Data: Abnormal lab results 05/30/18 05/31/1819 Range/Units 17:49 07:12 07:12 WBC 10.94 H (4.4-10.8) k/cumm RBC 3.68 L (4.50-6.00) m/cumm Hgb 13.1 L (13.5-17.5) g/dL Hct 38.9 L (40.0-50.0) % MCV 105.7 H (80-95) fL MCH 35.6 H (27.0-33.0) pg PT (9.3-11.0) sec INR (0.9-1.1) BUN 34 H (7-18) mg/dL Creatinine 1.76 H (0.70-1.30) mg/dL Glucose 119 H (70-100) mg/dL Lactate (0.6-1.4) mmol/L Uric Acid 12.6 H (3.5-7.2) mg/dL C-Reactive Protein 1.57 H (0.0-0.3) mg/dL 05/31/18 05/31/18 05/31/18 Range/Units 07:12 12:02 15:00 WBC (4.4-10.8) k/cumm RBC (4.50-6.00) m/cumm Hgb (13.5-17.5) g/dL Hct (40.0-50.0) % MCV (80-95) fL MCH (27.0-33.0) pg PT 20.2 H D (9.3-11.0) sec INR 2.0 H D (0.9-1.1) BUN (7-18) mg/dL Creatinine (0.70-1.30) mg/dL Glucose (70-100) mg/dL Lactate 1.7 H 1.6 H (0.6-1.4) mmol/L Uric Acid (3.5-7.2) mg/dL C-Reactive Protein (0.0-0.3) mg/dL 05/31/18 Range/Units 18:00 WBC (4.4-10.8) k/cumm RBC (4.50-6.00) m/cumm Hgb (13.5-17.5) g/dL Hct (40.0-50.0) % MCV (80-95) fL MCH (27.0-33.0) pg PT (9.3-11.0) sec INR (0.9-1.1) BUN (7-18) mg/dL Creatinine (0.70-1.30) mg/dL Glucose (70-100) mg/dL Lactate 2.2 H* (0.6-1.4) mmol/L Uric Acid (3.5-7.2) mg/dL C-Reactive Protein (0.0-0.3) mg/dL Vital Signs Temperature 36.5 C 05/31/18 16:18 Temperature Source Tympanic 05/31/18 16:18 Pulse 60 05/31/18 18:20 Pulse Rhythm Regular 05/31/18 08:15 Pulse 80 05/30/18 18:46 Respiratory Rate 17 05/31/18 16:18 Respiratory Effort 05/31/18 08:15 Respiratory Depth Normal 05/31/18 08:15 Respiratory Pattern Normal 05/31/18 08:15 Blood Pressure 104/64 05/31/18 18:20 Blood Pressure Mean 62 05/30/18 18:45 Blood Pressure Position Sitting 05/30/18 11:54 Pulse Oximetry 96 05/31/18 16:18 Oxygen Delivery Method Room Air 05/31/18 16:18 Oxygen Flow Rate 0 05/31/18 16:18 Pain Level 6 05/31/18 08:15 Comment 05/31/18 00:21 Intake & Output 05/30/18 05/31/18 05/31/18 23:59 11:59 23:59 Intake Total 1160 / 1400 240 / 1400 Output Total 440 / 440 Balance 720 / 960 240 / 960 Weight 94.3 kg Intake: IV 760 / 760 Oral 400 / 640 240 / 640 Output: Urine 440 / 440 Other: Urine Color Light [place] Urine Appearance Clear Urine Odor Normal Voiding Methods Urinal Laboratory Results WBC 10.94 k/cumm (4.4-10.8) H 05/31/18 07:12 RBC 3.68 m/cumm (4.50-6.00) L 05/31/18 07:12 Hgb 13.1 g/dL (13.5-17.5) L 05/31/18 07:12 Hct 38.9 % (40.0-50.0) L 05/31/18 07:12 MCV 105.7 fL (80-95) H 05/31/18 07:12 MCH 35.6 pg (27.0-33.0) H 05/31/18 07:12 MCHC 33.7 g/dL (32.0-36.0) 05/31/18 07:12 RDW 13.4 % (11.8-14.1) 05/31/18 07:12 Plt Count 165 x1000/uL (130-400) 05/31/18 07:12 MPV 10.3 fL (8.0-11.0) 05/31/18 07:12 Immature Gran % 0.1 05/30/18 12:19 Neutrophils % 81.9 05/30/18 12:19 Lymphocytes % 7.7 05/30/18 12:19 Monocytes % 9.3 05/30/18 12:19 Eosinophils % 0.7 05/30/18 12:19 Basophils % 0.3 05/30/18 12:19 Absolute Neutrophils 12.16 k/cumm (1.2-6.7) H 05/30/18 12:19 Absolute Lymphocytes 1.14 k/cumm (1.2-3.4) L 05/30/18 12:19 Absolute Monocytes 1.38 k/cumm (0.11-0.7) H 05/30/18 12:19 Absolute Eosinophils 0.10 k/cumm (0.0-0.7) 05/30/18 12:19 Absolute Basophils 0.04 k/cumm (0.0-0.2) 05/30/18 12:19 Differential Comment Rbc morph reviewed 05/30/18 12:19 RBC Morphology See below 05/30/18 12:19 Polychromasia Present 05/30/18 12:19 Macrocytosis 3+ 05/30/18 12:19 Stomatocytes 2+ 05/30/18 12:19 ESR 48 MM/HR (1-20) H 05/30/18 12:19 PT 20.2 sec (9.3-11.0) H D 05/31/18 07:12 INR 2.0 (0.9-1.1) H D 05/31/18 07:12 Sodium 141 mmol/L (136-145) 05/31/18 07:12 Potassium 4.2 mmol/L (3.5-5.1) 05/31/18 07:12 Chloride 104 mmol/L (98-107) 05/31/18 07:12 Carbon Dioxide 29.2 mmol/L (21.0-32.0) 05/31/18 07:12 Anion Gap 7.8 mmol/L (3-11) 05/31/18 07:12 BUN 34 mg/dL (7-18) H 05/31/18 07:12 Creatinine 1.76 mg/dL (0.70-1.30) H 05/31/18 07:12 Estimated GFR/1.73 m2 37.84 (mL/min/1.73m2) 05/31/18 07:12 Glucose 119 mg/dL (70-100) H 05/31/18 07:12 Lactate 2.2 mmol/L (0.6-1.4) H* 05/31/18 18:00 Uric Acid 12.6 mg/dL (3.5-7.2) H 05/31/18 07:12 Calcium 8.7 mg/dL (8.5-10.1) 05/31/18 07:12 Magnesium 2.0 mg/dL (1.8-2.4) 05/30/18 12:19 Total Bilirubin 0.5 mg/dL (0.2-1.0) 05/30/18 12:19 AST 32 U/L (15-37) 05/30/18 12:19 ALT 12 U/L (12-78) 05/30/18 12:19 Alkaline Phosphatase 68 U/L (46-116) 05/30/18 12:19 Troponin I < 0.02 ng/mL (0.00-0.06) 05/30/18 12:19 C-Reactive Protein 1.57 mg/dL (0.0-0.3) H 05/30/18 17:49 NT-Pro-B Natriuret Pep 1332 pg/mL (-299) H 05/30/18 12:19 Total Protein 7.2 g/dL (6.4-8.2) 05/30/18 12:19 Albumin 3.1 g/dL (3.4-5.0) L 05/30/18 12:19 Urine Color Yellow (Yellow) 05/30/18 12:20 Urine Clarity Clear 05/30/18 12:20 Urine pH 6.5 (5-8) 05/30/18 12:20 Ur Specific [place] 1.015 (1.005-1.025) 05/30/18 12:20 Urine Protein Negative mg/dL (Negative) 05/30/18 12:20 Urine Ketones Negative mg/dL (Negative) 05/30/18 12:20 Urine Blood Negative (Negative) 05/30/18 12:20 Urine Nitrite Negative (Negative) 05/30/18 12:20 Urine Bilirubin Negative (Negative) 05/30/18 12:20 Urine Urobilinogen 0.2 EU/dL (Up TO 0.2) 05/30/18 12:20 Ur Leukocyte Esterase Negative (Negative) 05/30/18 12:20 Urine Glucose Negative mg/dL (Negative) 05/30/18 12:20 Digoxin 1.85 ng/mL (0.90-2.00) 05/30/18 12:25
[2018-05-31] MEDS: Lidocaine 5% Patch 1 PATCH TP (19:27)
[2018-05-31] MEDS: Magnesium Lactate-SR 84 MG TABCR PO (19:28)
[2018-05-31] MEDS: Torsemide 20 MG TAB 40 MG PO (19:29)
[2018-05-31] MEDS: Simvastatin 20 MG TAB PO (19:30)
[2018-05-31] MEDS: rOPINIRole 0.5 MG TAB 0.25 MG PO (21:48)
[2018-06-01] VITALS (8 sets, daily range): BP systolic 95–115; BP diastolic 57–74; PULSE 64–70; RESP 17–20; TEMP 36.3–36.9; O2SAT 94–97
[2018-06-01] MEDS: Diazepam 2 MG TAB PO (02:13)
[2018-06-01] MEDS: traMADol 50 MG TAB PO ×3 (05:05→19:49)
[2018-06-01] MEDS: DICLOFENAC 1% GEL 100 GM TUBE TP ×3 (05:06→17:23)
[2018-06-01] MEDS: Patch Removal 1 EACH TP (05:24)
[2018-06-01 07:40] LABS: Lactate-non-spesis 0.9 mmol/L (0.6-1.4)
[2018-06-01] MEDS: Magnesium Lactate-SR 84 MG TABCR PO ×2 (07:42→19:49)
[2018-06-01] MEDS: Acetaminophen 500 MG TAB 1000 MG PO ×2 (07:42→19:50)
[2018-06-01] MEDS: Colchicine 0.6 MG TAB PO (07:42)
[2018-06-01] MEDS: Normal Saline Flush 10 ML SYR IVP ×2 (07:43→19:49)
[2018-06-01 07:45] LABS: Abs Immature Grans 0.03 k/cumm (0.0-0.09); Absolute Basophil Count 0.04 k/cumm (0.0-0.2); Absolute Eosinophil Count 0.36 k/cumm (0.0-0.7); Absolute Lymphocyte Count 1.68 k/cumm (1.2-3.4); Absolute Monocyte Count 1.36 k/cumm (0.11-0.7); Absolute Neutrophil Count 6.23 k/cumm (1.2-6.7); Basophils % 0.4; Eosinophils % 3.7; HCT 37.7 % (40.0-50.0); HGB 12.7 g/dL (13.5-17.5); Immature Grans % 0.3; Lymphocytes % 17.3; Mean Corp. HGB Concentration 33.7 g/dL (32.0-36.0); Mean Corpuscular Hemoglobin 35.3 pg (27.0-33.0); Mean Corpuscular Volume 104.7 fL (80-95); Mean Platelet Volume 10.3 fL (8.0-11.0); Neutrophils % 64.3; Platelet Count 162 x1000/uL (130-400); RBC Distribution Width 12.9 % (11.8-14.1)
[2018-06-01 07:51] LABS: INR 1.7 (0.9-1.1); Prothrombin Time 17.4 sec (9.3-11.0)
[2018-06-01 07:57] LABS: Anion Gap 7.5 mmol/L (3-11); BUN 26 mg/dL (7-18); CO2 28.5 mmol/L (21.0-32.0); CREATININE 1.27 mg/dL (0.70-1.30); Calcium 8.5 mg/dL (8.5-10.1); Chloride 101 mmol/L (98-107); Estimated GFR 55.14 (mL/min/1.73m2); Glucose 121 mg/dL (70-100); Magnesium 1.9 mg/dL (1.8-2.4); Potassium 3.9 mmol/L (3.5-5.1); Sodium 137 mmol/L (136-145)
--- NOTE | 2018-06-01 09:17 | W.ORTHOCONSU ---
Date of service: 06/01/18 Time of Service: 09:18 History of Present Illness Chief Complaint: weakness, R she is wrist pain Narrative: Patient is a 78-year-old male with multiple medical problems including congestive heart failure. He has had several weeks of progressive weakness. There have been some adjustments in his medications recently and more particularly he was started about 2 weeks ago on Entresto. Today he felt that he just could not manage any longer at home and came to the emergency room. In addition, he has had 1 day of aggravation of chronic pain in the right wrist. In the emergency room film of the wrist was negative. White count of 14,000 and sed rate of 48 were noted. He was given 4 mg of morphine but continues to complain of wrist pain. Blood pressures have been in the 90s systolic, which is close to baseline according to his daughter he was admitted for further evaluation and management Assessment and Plan (1) Gout attack: Current visit: Yes Status: Acute Patient's current symptoms is associated with probable gout. His uric acid level was 12.2. He is feeling better with colchicine therapy. I do not know what triggered his elevated uric acid level and gout I do not know what triggered the current attack dietary indiscretion does not appear to be the cause Spironolactone can elevate the uric acid this was discussed in detail with Dr. Rand. I do not recommend any specific change in his management. I will follow his progress while he is here. [facility] Medical History Cardiomyopathy (Acute) TIA (transient ischemic attack) (Acute) Atrial fibrillation (Chronic) COPD (chronic obstructive pulmonary disease) (Chronic) CVA (cerebral vascular accident) (Chronic) Diabetes (Chronic) GERD (gastroesophageal reflux disease) (Chronic) HTN (hypertension) (Chronic) Surgical History AICD (automatic cardioverter/defibrillator) present (Acute) Pacemaker (Acute) Extraction of cataract LEFT HEART CARDIAC CATH Repair of inguinal hernia Social History Smoking/Tobacco Use Status: Never alcohol intake: never substance use type: does not use Exam Extrem Other: Erythema over the dorsum of the right wrist. Is able to shake hands today which she could not do yesterday. He feels overall he is feeling somewhat better. He is sitting at the side of his bed eating his breakfast he reports no change in his overall breathing and congestive heart failure. He denies drinking alcohol drinking red wine and eating surfing turf recently. Results Last Vital Signs Temp 98.4 F 06/01/18 07:30 Pulse 64 06/01/18 07:30 Resp 18 06/01/18 07:30 BP 104/62 06/01/18 07:30 Pulse Ox 94 L 06/01/18 07:30 Labs : 06/01/18 07:32 06/01/18 07:32 Laboratory Results - last 24 hr 05/31/18 05/31/18 05/31/18 07:12 07:12 12:02 WBC RBC Hgb Hct MCV MCH MCHC RDW Plt Count MPV Immature Gran % Neutrophils % Lymphocytes % Monocytes % Eosinophils % Basophils % Absolute Neutrophils Absolute Lymphocytes Absolute Monocytes Absolute Eosinophils Absolute Basophils PT 20.2 H D INR 2.0 H D Sodium 141 Potassium 4.2 Chloride 104 Carbon Dioxide 29.2 Anion Gap 7.8 BUN 34 H Creatinine 1.76 H Estimated GFR/1.73 m2 37.84 Glucose 119 H Lactate 1.7 H Uric Acid 12.6 H Calcium 8.7 Magnesium 05/31/18 05/31/18 06/01/18 15:00 18:00 07:32 WBC RBC Hgb Hct MCV MCH MCHC RDW Plt Count MPV Immature Gran % Neutrophils % Lymphocytes % Monocytes % Eosinophils % Basophils % Absolute Neutrophils Absolute Lymphocytes Absolute Monocytes Absolute Eosinophils Absolute Basophils PT INR Sodium 137 Potassium 3.9 Chloride 101 Carbon Dioxide 28.5 Anion Gap 7.5 BUN 26 H Creatinine 1.27 Estimated GFR/1.73 m2 55.14 Glucose 121 H Lactate 1.6 H 2.2 H* Uric Acid Calcium 8.5 Magnesium 1.9 06/01/18 06/01/18 06/01/18 07:32 07:32 07:32 WBC 9.70 RBC 3.60 L Hgb 12.7 L Hct 37.7 L MCV 104.7 H MCH 35.3 H MCHC 33.7 RDW 12.9 Plt Count 162 MPV 10.3 Immature Gran % 0.3 Neutrophils % 64.3 Lymphocytes % 17.3 Monocytes % 14.0 Eosinophils % 3.7 Basophils % 0.4 Absolute Neutrophils 6.23 Absolute Lymphocytes 1.68 Absolute Monocytes 1.36 H Absolute Eosinophils 0.36 Absolute Basophils 0.04 PT 17.4 H INR 1.7 H Sodium Potassium Chloride Carbon Dioxide Anion Gap BUN Creatinine Estimated GFR/1.73 m2 Glucose Lactate 0.9 Uric Acid Calcium Magnesium
--- NOTE | 2018-06-01 10:51 | PT.INTREAT ---
Date of service: 06/01/18 Time of Service: 10:30 PT Notes Inpatient Physical Therapy Treatment Note [facility] Date: 06/01/18 PRECAUTIONS:fall, standard SUBJECTIVE: Srini states that he is feeling a bit better today. He sat up to the edge of the bed for a couple of hours this morning. He continues to have severe wrist pain on the right. OBJECTIVE: PAIN: right wrist BED MOBILITY/TRANSFERS Supine-sit: supervision Sit-supine: supervision Sit-stand: supervision Stand-sit: supervision Bed-Chair: supervision with platform WW Chair-bed: supervision with platform WW GAIT Assistive Device: WW with right platform Weight bearing: full Assist: CG Distance: 75' Deviation: cues for equipment management THEREX: Patient was instructed in seated strengthening activities, with need for max verbal and visual cues throughout. He was able to tolerate static standing with supervision only x 2 minutes. Full program can be found on flowsheet. ASSESSMENT: Significant improvements in independence and activity tolerance today. Will need platform walker only temporarily, until wrist pain improves. PLAN: Home with family assistance. TREATMENT CODE/TIME: 30 minutes ([id number])
--- NOTE | 2018-06-01 10:57 | PTTR_ITS ---
Date of service: 06/01/18 Time of Service: 10:30 PT Notes Inpatient Physical Therapy Treatment Note [facility] Date: 06/01/18 PRECAUTIONS:fall, standard SUBJECTIVE: Srini states that he is feeling a bit better today. He sat up to t he edge of the bed for a couple of hours this morning. He continues to have severe wrist pain on the right. OBJECTIVE: PAIN: right wrist BED MOBILITY/TRANSFERS Supine-sit: supervision Sit-supine: supervision Sit-stand: supervision Stand-sit: supervision Bed-Chair: supervision with platform WW Chair-bed: supervision with platform WW GAIT Assistive Device: WW with right platform Weight bearing: full Assist: CG Distance: 75' Deviation: cues for equipment management THEREX: Patient was instructed in seated strengthening activities, with need for max verbal and visual cues throughout. He was able to tolerate static standing with supervision only x 2 minutes. Full program can be found on flowsheet. ASSESSMENT: Significant improvements in independence and activity tolerance today. Will need platform walker only temporarily, until wrist pain improves. PLAN: Home with family assistance. TREATMENT CODE/TIME: 30 minutes ([id number])
[2018-06-01] MEDS: Insulin Aspart 300 UNITS/3 ML PEN SC (12:11)
[2018-06-01] MEDS: Digoxin 0.125 MG TAB PO (12:11)
[2018-06-01] MEDS: Lidocaine 5% Patch 1 PATCH TP (18:24)
--- NOTE | 2018-06-01 19:01 | PDOC.CMPRO ---
Care Management Progress Note S/O: Srini was resting in bed after finishing a workout with PT. States he is improving and his wrist is less painful. A: 78 yo male admitted for weakness and wrist pain P: Anticipate he will return home with no services needed. Daughter, Juju, will transport.
[2018-06-01] MEDS: rOPINIRole 0.5 MG TAB 0.25 MG PO (19:49)
[2018-06-01] MEDS: Warfarin 4 MG TAB PO (19:50)
[2018-06-01] MEDS: Simvastatin 20 MG TAB PO (19:50)
--- NOTE | 2018-06-01 20:12 | PGE_ITS ---
Date of Service Date of service: 06/01/18 Time of Service: 16:50 Assessment and Plan (1) Weakness: Current visit: No Status: Acute Agree that this is possibly due to polypharmacy/addition of entresto. Continue to hold entresto. COntinue working PT/OT. We started a conversation about rehab (2) Right wrist pain: Current visit: No Status: Acute Clinically, most likely gout. Improved. Continue colchicine. Pain relief with ultram and diclofenac gel. Cannot tolerate narcotics due to BP's on the lower side. Continue working with PT/OT. Appreciate ortho consult (3) Cardiomyopathy: Current visit: No Status: Chronic Euvolemic, s/p AICD. EF is not easily available in our medical record. Will continue to hold entresto. Resumed torsemide and aldactone. Will clarify outpatient dose of aldactone. (4) Controlled diabetes mellitus: Current visit: No Status: Acute Continue SSI (5) Essential hypertension: Current visit: No Status: Acute meds resumed with holding parameters (6) AF (paroxysmal atrial fibrillation): Current visit: No Status: Chronic Rate controlled. Continue anticoagluation with coumadin. 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 PT/OT consulted - may need placement (9) DVT prophylaxis: Current visit: No Status: Acute On therapeutic coumadin Subjective Interval history since last seen: Feels much better today. His wrist is much less painful, and he has better ROM with it. Denies dizziness, chest pain, shortness of breath, nausea, vomiting Exam Narrative Exam Narrative: General: Elderly male, forgetful, laying uncomfortably in bed HEENT: EOMI, MMM Heart: Irregularly irregular rhythm, + RICH Lungs: CTAB GI: abdomen is soft, nontender, nondistended Extremities: R wrist is less edematous and less erythematous Objective Objective Clinical Data: Abnormal lab results 06/01/18 06/01/18 06/01/18 Range/Units 07:32 07:32 07:32 RBC 3.60 L (4.50-6.00) m/cumm Hgb 12.7 L (13.5-17.5) g/dL Hct 37.7 L (40.0-50.0) % MCV 104.7 H (80-95) fL MCH 35.3 H (27.0-33.0) pg Absolute Monocytes 1.36 H (0.11-0.7) k/cumm PT 17.4 H (9.3-11.0) sec INR 1.7 H (0.9-1.1) BUN 26 H (7-18) mg/dL Glucose 121 H (70-100) mg/dL Vital Signs Temperature 36.5 C 06/01/18 19:09 Temperature Source Tympanic 06/01/18 19:09 Pulse 70 06/01/18 19:09 Pulse Rhythm Regular 06/01/18 19:52 Pulse 80 05/30/18 18:46 Respiratory Rate 20 06/01/18 19:09 Respiratory Effort 06/01/18 19:52 Respiratory Depth Normal 06/01/18 19:52 Respiratory Pattern Normal 06/01/18 19:52 Blood Pressure 95/57 L 06/01/18 19:09 Blood Pressure Mean 62 05/30/18 18:45 Blood Pressure Position Sitting 05/30/18 11:54 Pulse Oximetry 97 06/01/18 19:09 Oxygen Delivery Method Room Air 06/01/18 19:09 Oxygen Flow Rate 0 06/01/18 19:09 Pain Level 8 06/01/18 19:50 Comment 05/31/18 00:21 Intake & Output 05/31/18 06/01/18 06/01/18 23:59 11:59 23:59 Intake Total 600 / 1760 370 / 1130 760 / 1130 Output Total 1000 / 1440 1020 / 1270 250 / 1270 Balance -400 / 320 -650 / -140 510 / -140 Intake: IV Oral 600 / 1000 360 / 1120 760 / 1120 Output: Urine 1000 / 1440 1020 / 1270 250 / 1270 Other: Urine Color Straw Straw Straw Urine Appearance Clear Clear Urine Odor Normal Normal Stool Size Moderate Stool Characteristics Formed Voiding Methods Urinal Urinal Toilet Laboratory Results WBC 9.70 k/cumm (4.4-10.8) 06/01/18 07:32 RBC 3.60 m/cumm (4.50-6.00) L 06/01/18 07:32 Hgb 12.7 g/dL (13.5-17.5) L 06/01/18 07:32 Hct 37.7 % (40.0-50.0) L 06/01/18 07:32 MCV 104.7 fL (80-95) H 06/01/18 07:32 MCH 35.3 pg (27.0-33.0) H 06/01/18 07:32 MCHC 33.7 g/dL (32.0-36.0) 06/01/18 07:32 RDW 12.9 % (11.8-14.1) 06/01/18 07:32 Plt Count 162 x1000/uL (130-400) 06/01/18 07:32 MPV 10.3 fL (8.0-11.0) 06/01/18 07:32 Immature Gran % 0.3 06/01/18 07:32 Neutrophils % 64.3 06/01/18 07:32 Lymphocytes % 17.3 06/01/18 07:32 Monocytes % 14.0 06/01/18 07:32 Eosinophils % 3.7 06/01/18 07:32 Basophils % 0.4 06/01/18 07:32 Absolute Neutrophils 6.23 k/cumm (1.2-6.7) 06/01/18 07:32 Absolute Lymphocytes 1.68 k/cumm (1.2-3.4) 06/01/18 07:32 Absolute Monocytes 1.36 k/cumm (0.11-0.7) H 06/01/18 07:32 Absolute Eosinophils 0.36 k/cumm (0.0-0.7) 06/01/18 07:32 Absolute Basophils 0.04 k/cumm (0.0-0.2) 06/01/18 07:32 Differential Comment Rbc morph reviewed 05/30/18 12:19 RBC Morphology See below 05/30/18 12:19 Polychromasia Present 05/30/18 12:19 Macrocytosis 3+ 05/30/18 12:19 Stomatocytes 2+ 05/30/18 12:19 ESR 48 MM/HR (1-20) H 05/30/18 12:19 PT 17.4 sec (9.3-11.0) H 06/01/18 07:32 INR 1.7 (0.9-1.1) H 06/01/18 07:32 Sodium 137 mmol/L (136-145) 06/01/18 07:32 Potassium 3.9 mmol/L (3.5-5.1) 06/01/18 07:32 Chloride 101 mmol/L (98-107) 06/01/18 07:32 Carbon Dioxide 28.5 mmol/L (21.0-32.0) 06/01/18 07:32 Anion Gap 7.5 mmol/L (3-11) 06/01/18 07:32 BUN 26 mg/dL (7-18) H 06/01/18 07:32 Creatinine 1.27 mg/dL (0.70-1.30) 06/01/18 07:32 Estimated GFR/1.73 m2 55.14 (mL/min/1.73m2) 06/01/18 07:32 Glucose 121 mg/dL (70-100) H 06/01/18 07:32 Lactate 0.9 mmol/L (0.6-1.4) 06/01/18 07:32 Uric Acid 12.6 mg/dL (3.5-7.2) H 05/31/18 07:12 Calcium 8.5 mg/dL (8.5-10.1) 06/01/18 07:32 Magnesium 1.9 mg/dL (1.8-2.4) 06/01/18 07:32 Total Bilirubin 0.5 mg/dL (0.2-1.0) 05/30/18 12:19 AST 32 U/L (15-37) 05/30/18 12:19 ALT 12 U/L (12-78) 05/30/18 12:19 Alkaline Phosphatase 68 U/L (46-116) 05/30/18 12:19 Troponin I < 0.02 ng/mL (0.00-0.06) 05/30/18 12:19 C-Reactive Protein 1.57 mg/dL (0.0-0.3) H 05/30/18 17:49 NT-Pro-B Natriuret Pep 1332 pg/mL (-299) H 05/30/18 12:19 Total Protein 7.2 g/dL (6.4-8.2) 05/30/18 12:19 Albumin 3.1 g/dL (3.4-5.0) L 05/30/18 12:19 Urine Color Yellow (Yellow) 05/30/18 12:20 Urine Clarity Clear 05/30/18 12:20 Urine pH 6.5 (5-8) 05/30/18 12:20 Ur Specific [place] 1.015 (1.005-1.025) 05/30/18 12:20 Urine Protein Negative mg/dL (Negative) 05/30/18 12:20 Urine Ketones Negative mg/dL (Negative) 05/30/18 12:20 Urine Blood Negative (Negative) 05/30/18 12:20 Urine Nitrite Negative (Negative) 05/30/18 12:20 Urine Bilirubin Negative (Negative) 05/30/18 12:20 Urine Urobilinogen 0.2 EU/dL (Up TO 0.2) 05/30/18 12:20 Ur Leukocyte Esterase Negative (Negative) 05/30/18 12:20 Urine Glucose Negative mg/dL (Negative) 05/30/18 12:20 Digoxin 1.85 ng/mL (0.90-2.00) 05/30/18 12:25
[2018-06-02] VITALS (7 sets, daily range): BP systolic 94–105; BP diastolic 56–68; PULSE 67–96; RESP 18–20; TEMP 35.9–36.5; O2SAT 94–99
[2018-06-02] MEDS: VANCOMYCIN 1,500 MG in Normal Saline 500 ML 500 MG IV (01:50)
[2018-06-02] MEDS: traMADol 50 MG TAB PO (05:09)
[2018-06-02] MEDS: DICLOFENAC 1% GEL 100 GM TUBE TP ×3 (05:13→18:47)
[2018-06-02] MEDS: Patch Removal 1 EACH TP (05:14)
[2018-06-02 07:30] LABS: Abs Immature Grans 0.01 k/cumm (0.0-0.09); Absolute Basophil Count 0.04 k/cumm (0.0-0.2); Absolute Eosinophil Count 0.41 k/cumm (0.0-0.7); Absolute Lymphocyte Count 1.76 k/cumm (1.2-3.4); Absolute Monocyte Count 1.13 k/cumm (0.11-0.7); Absolute Neutrophil Count 3.85 k/cumm (1.2-6.7); Basophils % 0.6; Eosinophils % 5.7; HCT 36.3 % (40.0-50.0); HGB 12.3 g/dL (13.5-17.5); Immature Grans % 0.1; Lymphocytes % 24.4; Mean Corp. HGB Concentration 33.9 g/dL (32.0-36.0); Mean Corpuscular Hemoglobin 35.3 pg (27.0-33.0); Mean Corpuscular Volume 104.3 fL (80-95); Mean Platelet Volume 10.3 fL (8.0-11.0); Monocytes % 15.7; Neutrophils % 53.5; Platelet Count 166 x1000/uL (130-400); RBC 3.48 m/cumm (4.50-6.00); RBC Distribution Width 12.5 % (11.8-14.1)
[2018-06-02 07:54] LABS: INR 1.9 (0.9-1.1); Prothrombin Time 19.1 sec (9.3-11.0)
[2018-06-02 08:00] LABS: Anion Gap 6.5 mmol/L (3-11); BUN 21 mg/dL (7-18); CO2 26.5 mmol/L (21.0-32.0); CREATININE 1.11 mg/dL (0.70-1.30); Calcium 8.5 mg/dL (8.5-10.1); Chloride 104 mmol/L (98-107); Glucose 114 mg/dL (70-100); Magnesium 1.8 mg/dL (1.8-2.4); Potassium 4.1 mmol/L (3.5-5.1); Sodium 137 mmol/L (136-145)
[2018-06-02] MEDS: Spironolactone 25 MG TAB 12.5 MG PO (09:25)
[2018-06-02] MEDS: Acetaminophen 500 MG TAB 1000 MG PO ×2 (09:26→20:51)
[2018-06-02] MEDS: Torsemide 20 MG TAB 60 MG PO (09:26)
[2018-06-02] MEDS: Magnesium Lactate-SR 84 MG TABCR PO ×2 (09:27→20:51)
[2018-06-02] MEDS: Colchicine 0.6 MG TAB PO (09:27)
[2018-06-02] MEDS: Digoxin 0.125 MG TAB PO (09:27)
[2018-06-02] MEDS: Metoprolol 50 MG TAB PO ×2 (09:27→20:51)
--- NOTE | 2018-06-02 10:39 | W.PM.PROGNOT ---
Date of Service Date of service: 06/02/18 Time of Service: 10:39 Assessment and Plan (1) Gout attack: Current visit: Yes Status: Acute Improved clinical gout from the patient's right wrist. No evidence of gout in other parts of the joint no evidence of gouty arthropathy on x-rays. At some point the patient would benefit from being on allopurinol because of the use of medications that contain diuretics often will elevate uric acid level of this include Spironolactone. Subjective Interval history since last seen: Patient is generally feeling better. He is able to move his wrist through about 50% arc of a normal range of motion he cannot make a tightly clenched fist. Patient is noting any other joints that are bothering him such as his great toes or his knees. Exam Extrem Other: Erythema over the dorsum of his right wrist has decreased significantly. It is only mildly erythematous. I cannot feel any fluid collection or anything that could be tapped with a needle. Objective Objective Clinical Data: Abnormal lab results 06/02/18 06/02/18 06/02/18 Range/Units 06:45 06:45 06:45 RBC 3.48 L (4.50-6.00) m/cumm Hgb 12.3 L (13.5-17.5) g/dL Hct 36.3 L (40.0-50.0) % MCV 104.3 H (80-95) fL MCH 35.3 H (27.0-33.0) pg Absolute Monocytes 1.13 H (0.11-0.7) k/cumm PT 19.1 H (9.3-11.0) sec INR 1.9 H (0.9-1.1) BUN 21 H (7-18) mg/dL Glucose 114 H (70-100) mg/dL Vital Signs Temperature 97.3 F L 06/02/18 08:49 Temperature Source Tympanic 06/02/18 08:49 Pulse 96 H 06/02/18 09:27 Pulse Rhythm Regular 06/01/18 19:52 Pulse 80 05/30/18 18:46 Respiratory Rate 20 06/02/18 08:49 Respiratory Effort 06/01/18 19:52 Respiratory Depth Normal 06/01/18 19:52 Respiratory Pattern Normal 06/01/18 19:52 Blood Pressure 105/64 06/02/18 08:49 Blood Pressure Mean 62 05/30/18 18:45 Blood Pressure Position Sitting 05/30/18 11:54 Pulse Oximetry 99 06/02/18 08:49 Oxygen Delivery Method Room Air 06/02/18 08:49 Oxygen Flow Rate 0 06/02/18 08:49 Pain Level 7 06/02/18 09:26 Comment 06/02/18 07:17 Intake & Output 06/01/18 06/01/18 06/02/18 11:59 23:59 11:59 Intake Total 370 / 1130 760 / 1130 240 / 240 Output Total 1020 / 1270 250 / 1270 200 / 200 Balance -650 / -140 510 / -140 40 / 40 Intake: IV Oral 360 / 1120 760 / 1120 240 / 240 Output: Urine 1020 / 1270 250 / 1270 200 / 200 Other: Urine Color Straw Yellow Yellow Urine Appearance Clear Clear Urine Odor Normal Stool Size Moderate Stool Characteristics Soft Formed Voiding Methods Urinal Toilet Urinal Laboratory Results WBC 7.20 k/cumm (4.4-10.8) 06/02/18 06:45 RBC 3.48 m/cumm (4.50-6.00) L 06/02/18 06:45 Hgb 12.3 g/dL (13.5-17.5) L 06/02/18 06:45 Hct 36.3 % (40.0-50.0) L 06/02/18 06:45 MCV 104.3 fL (80-95) H 06/02/18 06:45 MCH 35.3 pg (27.0-33.0) H 06/02/18 06:45 MCHC 33.9 g/dL (32.0-36.0) 06/02/18 06:45 RDW 12.5 % (11.8-14.1) 06/02/18 06:45 Plt Count 166 x1000/uL (130-400) 06/02/18 06:45 MPV 10.3 fL (8.0-11.0) 06/02/18 06:45 Immature Gran % 0.1 06/02/18 06:45 Neutrophils % 53.5 06/02/18 06:45 Lymphocytes % 24.4 06/02/18 06:45 Monocytes % 15.7 06/02/18 06:45 Eosinophils % 5.7 06/02/18 06:45 Basophils % 0.6 06/02/18 06:45 Absolute Neutrophils 3.85 k/cumm (1.2-6.7) 06/02/18 06:45 Absolute Lymphocytes 1.76 k/cumm (1.2-3.4) 06/02/18 06:45 Absolute Monocytes 1.13 k/cumm (0.11-0.7) H 06/02/18 06:45 Absolute Eosinophils 0.41 k/cumm (0.0-0.7) 06/02/18 06:45 Absolute Basophils 0.04 k/cumm (0.0-0.2) 06/02/18 06:45 Differential Comment Rbc morph reviewed 05/30/18 12:19 RBC Morphology See below 05/30/18 12:19 Polychromasia Present 05/30/18 12:19 Macrocytosis 3+ 05/30/18 12:19 Stomatocytes 2+ 05/30/18 12:19 ESR 48 MM/HR (1-20) H 05/30/18 12:19 PT 19.1 sec (9.3-11.0) H 06/02/18 06:45 INR 1.9 (0.9-1.1) H 06/02/18 06:45 Sodium 137 mmol/L (136-145) 06/02/18 06:45 Potassium 4.1 mmol/L (3.5-5.1) 06/02/18 06:45 Chloride 104 mmol/L (98-107) 06/02/18 06:45 Carbon Dioxide 26.5 mmol/L (21.0-32.0) 06/02/18 06:45 Anion Gap 6.5 mmol/L (3-11) 06/02/18 06:45 BUN 21 mg/dL (7-18) H 06/02/18 06:45 Creatinine 1.11 mg/dL (0.70-1.30) 06/02/18 06:45 Estimated GFR/1.73 m2 >= 60.00 (mL/min/1.73m2) 06/02/18 06:45 Glucose 114 mg/dL (70-100) H 06/02/18 06:45 Lactate 0.9 mmol/L (0.6-1.4) 06/01/18 07:32 Uric Acid 12.6 mg/dL (3.5-7.2) H 05/31/18 07:12 Calcium 8.5 mg/dL (8.5-10.1) 06/02/18 06:45 Magnesium 1.8 mg/dL (1.8-2.4) 06/02/18 06:45 Total Bilirubin 0.5 mg/dL (0.2-1.0) 05/30/18 12:19 AST 32 U/L (15-37) 05/30/18 12:19 ALT 12 U/L (12-78) 05/30/18 12:19 Alkaline Phosphatase 68 U/L (46-116) 05/30/18 12:19 Troponin I < 0.02 ng/mL (0.00-0.06) 05/30/18 12:19 C-Reactive Protein 1.57 mg/dL (0.0-0.3) H 05/30/18 17:49 NT-Pro-B Natriuret Pep 1332 pg/mL (-299) H 05/30/18 12:19 Total Protein 7.2 g/dL (6.4-8.2) 05/30/18 12:19 Albumin 3.1 g/dL (3.4-5.0) L 05/30/18 12:19 Urine Color Yellow (Yellow) 05/30/18 12:20 Urine Clarity Clear 05/30/18 12:20 Urine pH 6.5 (5-8) 05/30/18 12:20 Ur Specific [place] 1.015 (1.005-1.025) 05/30/18 12:20 Urine Protein Negative mg/dL (Negative) 05/30/18 12:20 Urine Ketones Negative mg/dL (Negative) 05/30/18 12:20 Urine Blood Negative (Negative) 05/30/18 12:20 Urine Nitrite Negative (Negative) 05/30/18 12:20 Urine Bilirubin Negative (Negative) 05/30/18 12:20 Urine Urobilinogen 0.2 EU/dL (Up TO 0.2) 05/30/18 12:20 Ur Leukocyte Esterase Negative (Negative) 05/30/18 12:20 Urine Glucose Negative mg/dL (Negative) 05/30/18 12:20 Digoxin 1.85 ng/mL (0.90-2.00) 05/30/18 12:25
--- NOTE | 2018-06-02 10:58 | PT.INTREAT ---
Date of service: 06/02/18 Time of Service: 09:30 PT Notes Inpatient Physical Therapy Treatment Note [facility] Date: 06/02/18 PRECAUTIONS:fall, standard SUBJECTIVE: Srini states that he's feeling well this morning. His wrist continues to be painful, but he thinks it's possibly better than yesterday. OBJECTIVE: PAIN: right wrist BED MOBILITY/TRANSFERS Sit-stand: supervision Stand-sit: supervision Bed-Chair:supervision with WW with RUE platform Chair-bed: supervision with WW with RUE platform GAIT Assistive Device: WW with RUE platform Weight bearing: full Assist: supervision Distance: 300' Deviation: cues for safety THEREX: Patient was instructed in seated exercise program as noted on flowsheet. He tolerated addition of 3# ankle weights, and completed UE exercises with need for max cues. ASSESSMENT: Significantly improved activity tolerance today. PLAN: Continue progressing strengthening and cardiovascular retraining for improved activity tolerance. TREATMENT CODE/TIME: 30 minutes (68723, [id number])
--- NOTE | 2018-06-02 11:02 | PTTR_ITS ---
Date of service: 06/02/18 Time of Service: 09:30 PT Notes Inpatient Physical Therapy Treatment Note [facility] Date: 06/02/18 PRECAUTIONS:fall, standard SUBJECTIVE: Srini states that he's feeling well this morning. His wrist contin ues to be painful, but he thinks it's possibly better than yesterday. OBJECTIVE: PAIN: right wrist BED MOBILITY/TRANSFERS Sit-stand: supervision Stand-sit: supervision Bed-Chair:supervision with WW with RUE platform Chair-bed: supervision with WW with RUE platform GAIT Assistive Device: WW with RUE platform Weight bearing: full Assist: supervision Distance: 300' Deviation: cues for safety THEREX: Patient was instructed in seated exercise program as noted on flowsheet. He tolerated addition of 3# ankle weights, and completed UE exercises with need for max cues. ASSESSMENT: Significantly improved activity tolerance today. PLAN: Continue progressing strengthening and cardiovascular retraining for improved activity tolerance. TREATMENT CODE/TIME: 30 minutes ([id number], [id number])
[2018-06-02] MEDS: Normal Saline Flush 10 ML SYR IVP (12:47)
--- NOTE | 2018-06-02 12:53 | PDOC.CMPRO ---
Care Management Progress Note S/O: Srini was sitting in his chair, agreeable to meeting with this food writer and pleasant in interaction. Srini identifies his increased weakness at home with the gout in his wrist. He described being unable to stand up from the toilet. He was agreeable to [facility] supports and MOW/option counselor referrals through [facility]. He identified his daughter, Juju as his primary support. CM spoke with PT who reported Srini was supervision only and functioning close to baseline. CM will continue to follow. A: 78 yo male admitted for weakness and wrist pain P: Srini will return home when ready per MD. He will have a new referral provided by this food writer for MOW and Options counseling through the [facility]: CM faxed order today and provided [facility] resources. Srini will transport via private vehicle with his daughter, Juju.
--- NOTE | 2018-06-02 13:19 | CMPROGNOTE_ITS ---
Care Management Progress Note S/O: Srini was sitting in his chair, agreeable to meeting with this television script writer and pleasant in interaction. Srini identifies his increased weakness at home with the gout in his wrist. He described being unable to stand up from the toilet. He was agreeable to [facility] supports and MOW/option counselor referrals through [facility]. He identified his daughter, Juju as his primary support. CM spoke with PT who reported Srini was supervision only and functioning close to baseline. CM will continue to follow. A: 78 yo male admitted for weakness and wrist pain P: Srini will return home when ready per MD. He will have a new referral provided by this television script writer for MOW and Options counseling through the [facility]: CM faxed order today and provided [facility] resources. Srini will transport via private vehicle with his daughter, Juju.
--- NOTE | 2018-06-02 13:32 | OT.INIE ---
Occupational Therapy Notes Inpatient Occupational Therapy Evaluation Date: 06/02/18 Referring Doctor:Vanna Gar MD OT Orders: Eval and treat Precautions: Fall and standard precautions. PATIENT PROFILE/ADMITTING DIAGNOSIS: Pt is a 78 year old male admitted to [facility] on 05/30/18 from ER due to progressive and generalized weakness. He was found to be hypotensive and was admitted for continued medical care. Past Medical History: CHF, GERD, type 2 diabetes, A. fib, on chronic anticoagulation, COPD, status post CVA, pacemaker/AICD placement Social History/Home Situation: Per pt report he lives alone in a private home. He reports that prior to admission to [facility] his daughter (A) with meals and grocery shopping, he was (I) with all ADLs/IADLs. Pt is well known to OT and had participated in Cardiac Rehab here at [facility] in the past. He reports that he is no longer able to perform this due to his breathing. He feels that he is at his baseline level of function for ADLs/IADLs. He uses a FWW at home for ambulation. Equipment owned/DME: Handicap accessible home, FWW, cane SUBJECTIVE: Pt was sitting in chair when OT arrived. He was agreeable to OT consult. OBJECTIVE: General Observation: pleasant and answers questions appropriately. Mental Status: A&Ox3 Pain: c/o pain in (R) UE due to GOUT. Pt reports this is significantly better. ROM: RUE AROM WNL L UE AROM WNL STRENGTH: RUE NT per pt request due to pain LUE 4/5 throughout FUNCTIONAL MOBILITY/ADLS: Transfers Sit-Stand (I), FWW Stand-sit S, FWW BATHING Pt denies at todays session reporting he had previously performed bathing routine prior to OT session. DRESSING Educated and trained in sock aid, shoe horn, phosphoric acid operator and dressing hook. Dressing UE (I) don and doff Dressing LE Demonstrated ideal technique with donning and doffing (B) socks with use of sock aid and dressing hook. Pt trained in shoe horn and use of phosphoric acid operator which pt verbalized understanding of. TOILETING (I) on toilet EATING (I) able to open packages and bring food to mouth translation (I) BALANCE: Static sitting Normal Dynamic Sitting Normal SPECIAL TESTS: Daily Activity Limitations Standardized Measure [facility] AM -PAC ?6 clicks? Daily Activity Inpatient Short Form: Raw score: 22 Standardized score: 47.10 CMS score: 25.80% CMS modifier: CJ INFORMED CONSENT/EDUCATION: Pt instructed in purpose of OT Consult and plan of care. ASSESSMENT: Patient is a 78-year-old male referred to occupational therapy services with diagnosis of GOUT and weakness. Patient presents with clinical signs and symptoms consistent with this dx, as demonstrated by the following impairment level findings and functional limitations: decreased strength (R) UE, increased pain in (R) UE, decreased functional activity tolerance due to breathing (baseline CHF). Pt was seen for OT consult only. He was eductaed and trained in adaptive equipment and demonstrating increased (I) in ADL routines. Pt states that he is able to perform ADLs at his baseline at this time. OT recommends that pt return home when medically cleared per MD. AMPAC score 22, CMS Score 25.80% Patient is assessed as a Moderate 41094 complexity based on the following: History: See Above Examination: See Above Presentation: Evolving Decision Making: AMPAC score 22, CMS Score 25.80% GOALS N/A PLAN OF CARE/TREATMENT PLAN: OT consult only D/C skilled OT services. DISCHARGE RECOMMENDATIONS Home when medically cleared per MD. TREATMENT TIME/MINUTES/[place] [address], [address], 20 minutes (09:50) G Codes in the area of self- : washing oneself, toileting, dressing, eating and drinking, current status GO [id number] CJ projected status GO [id number]. Discharge status (if discharging) GO [id number] based on AMPAC score 22, CMS score 25.80%. Thank you for this referral. Carmen Gurrola, OTR/L [facility]
--- NOTE | 2018-06-02 13:44 | OTIE_ITS ---
Occupational Therapy Notes Inpatient Occupational Therapy Evaluation Date: 06/02/18 Referring Doctor:Vanna Gar MD OT Orders: Eval and treat Precautions: Fall and standard precautions. PATIENT PROFILE/ADMITTING DIAGNOSIS: Pt is a 78 year old male admitted to [facility] on 05/30/18 from ER due to progressive and generalized weakness. He was found to be hypotensive and was admitted for continued medical care. Past Medical History: CHF, GERD, type 2 diabetes, A. fib, on chronic anticoagulation, COPD, status post CVA, pacemaker/AICD placement Social History/Home Situation: Per pt report he lives alone in a private home. He reports that prior to admission to [facility] his daughter (A) with meals and grocery shopping, he was (I) with all ADLs/IADLs. Pt is well known to OT and had participated in Cardiac Rehab here at [facility] in the past. He reports that he is no longer able to perform this due to his breathing. He feels that he is at his baseline level of function for ADLs/IADLs. He uses a FWW at home for ambulation. Equipment owned/DME: Handicap accessible home, FWW, cane SUBJECTIVE: Pt was sitting in chair when OT arrived. He was agreeable to OT consult. OBJECTIVE: General Observation: pleasant and answers questions appropriately. Mental Status: A&Ox3 Pain: c/o pain in (R) UE due to GOUT. Pt reports this is significantly better. ROM: RUE AROM WNL L UE AROM WNL STRENGTH: RUE NT per pt request due to pain LUE 4/5 throughout FUNCTIONAL MOBILITY/ADLS: Transfers Sit-Stand (I), FWW Stand-sit S, FWW BATHING Pt denies at todays session reporting he had previously performed bathing routine prior to OT session. DRESSING Educated and trained in sock aid, shoe horn, jewel hole rough opener and dressing hook. Dressing UE (I) don and doff Dressing LE Demonstrated ideal technique with donning and doffing (B) socks with use of sock aid and dressing hook. Pt trained in shoe horn and use of jewel hole rough opener which pt verbalized understanding of. TOILETING (I) on toilet EATING (I) able to open packages and bring food to mouth translation (I) BALANCE: Static sitting Normal Dynamic Sitting Normal SPECIAL TESTS: Daily Activity Limitations Standardized Measure [facility] AM -PAC ?6 clicks? Daily Activity Inpatient Short Form: Raw score: 22 Standardized score: 47.10 CMS score: 25.80% CMS modifier: CJ INFORMED CONSENT/EDUCATION: Pt instructed in purpose of OT Consult and plan of care. ASSESSMENT: Patient is a 78-year-old male referred to occupational therapy services with diagnosis of GOUT and weakness. Patient presents with clinical signs and symptoms consistent with this dx, as demonstrated by the following impairment level findings and functional limitations: decreased strength (R) UE, increased pain in (R) UE, decreased functional activity tolerance due to breathing (baseline CHF). Pt was seen for OT consult only. He was eductaed and trained in adaptive equipment and demonstrating increased (I) in ADL routines. Pt states that he is able to perform ADLs at his baseline at this time. OT recommends that pt return home when medically cleared per MD. AMPAC score 22, CMS Score 25.80% Patient is assessed as a Moderate 73230 complexity based on the following: History: See Above Examination: See Above Presentation: Evolving Decision Making: AMPAC score 22, CMS Score 25.80% GOALS N/A PLAN OF CARE/TREATMENT PLAN: OT consult only D/C skilled OT services. DISCHARGE RECOMMENDATIONS Home when medically cleared per MD. TREATMENT TIME/MINUTES/[place] [address], [address], 20 minutes (09:50) G Codes in the area of self- : washing oneself, toileting, dressing, eating and drinking, current status GO G8987 CJ projected status GO [id number]. Discharge status (if discharging) GO [id number] based on AMPAC score 22, CMS score 25.80%. Thank you for this referral. Carmen Gurrola, OTR/L [facility]
--- NOTE | 2018-06-02 14:34 | CHAPLAIN ---
Srini was in bed having some chocolate pudding when I visited. He told me he is from [place] and won't likely have any family members visiting him this week. He was pleasant, but not interested in a longer lithoplate maker visit
[2018-06-02] MEDS: VANCOMYCIN 750 MG in Normal Saline 250 ML 166.667 MG IV (14:36)
--- NOTE | 2018-06-02 14:45 | PT.INTREAT ---
Date of service: 06/02/18 Time of Service: 14:45 PT Notes Inpatient Physical Therapy Treatment Note [facility] Date: 06/02/18 PRECAUTIONS: Fall SUBJECTIVE: Irineo is agreeable to participating in PT. OBJECTIVE: PAIN: No c/o pain BED MOBILITY/TRANSFERS Supine-sit: I Sit-supine: I Sit-stand: S Stand-sit: S GAIT Assistive Device: FWW with R platform Weight bearing: Full Assist: S Distance: 300' + 20' x2 THEREX: Patient completed a resisted LE strengthening program, as per flow sheet. He also completed functional inc-nl-ocwtx exercise x5. TOILETING: Patient toileted independently. ASSESSMENT: Patient tolerated session well without complaint. He would benefit from continued strengthening for improved activity duration tolerance. PLAN: Continue with PT's POC TREATMENT CODE/TIME: 25 minutes; (86634 x1, 87137 x1)
--- NOTE | 2018-06-02 14:51 | PTTR_ITS ---
Date of service: 06/02/18 Time of Service: 14:45 PT Notes Inpatient Physical Therapy Treatment Note [facility] Date: 06/02/18 PRECAUTIONS: Fall SUBJECTIVE: Irineo is agreeable to participating in PT. OBJECTIVE: PAIN: No c/o pain BED MOBILITY/TRANSFERS Supine-sit: I Sit-supine: I Sit-stand: S Stand-sit: S GAIT Assistive Device: FWW with R platform Weight bearing: Full Assist: S Distance: 300' + 20' x2 THEREX: Patient completed a resisted LE strengthening program, as per flow sheet. He also completed functional [id number]-jx-cumwn exercise x5. TOILETING: Patient toileted independently. ASSESSMENT: Patient tolerated session well without complaint. He would benefit from continued strengthening for improved activity duration tolerance. PLAN: Continue with PT's POC TREATMENT CODE/TIME: 25 minutes; (86216 x1, 37106 x1)
--- NOTE | 2018-06-02 19:55 | PGE_ITS ---
Date of Service Date of service: 06/02/18 Time of Service: 15:55 Assessment and Plan (1) Weakness: Current visit: No Status: Acute Agree that this is possibly due to polypharmacy/addition of entresto. This is significantly better. Entresto d/c'ed. COntinue working PT/OT. He will not need rehab. (2) Right wrist pain: Current visit: No Status: Acute Clinically, most likely gout. Improving drastically. Continue colchicine. Pain relief with ultram and diclofenac gel. Continue working with PT/OT. Appreciate ortho consult (3) Cardiomyopathy: Current visit: No Status: Chronic Euvolemic, s/p AICD. EF is not easily available in our medical record. Will continue to hold entresto. COntinue torsemide and aldactone. (4) Controlled diabetes mellitus: Current visit: No Status: Acute Continue SSI (5) Essential hypertension: Current visit: No Status: Acute meds resumed with holding parameters (6) AF (paroxysmal atrial fibrillation): Current visit: No Status: Chronic Rate controlled. Continue anticoagluation with coumadin. 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 PT/OT consulted - may need placement (9) DVT prophylaxis: Current visit: No Status: Acute On therapeutic coumadin (10) Positive blood culture: Current visit: Yes Status: Acute Likely contaminant (1/4 bottles positive; clinical response observed prior to any antibiotics being given). Initiated on vancomycin while repeat blood cultures are pending. Subjective Interval history since last seen: Feels a lot better today. States his hand hurts a lot less, but it does still hurt. He has better ROM with it today. He denies dizziness, chest pain, shortness of breath, nausea, vomiting. Exam Narrative Exam Narrative: General: Elderly male, sitting up at the edge of the bed, looks more alert HEENT: EOMI, MMM Heart: Irregularly irregular rhythm, + RICH Lungs: CTAB GI: abdomen is soft, nontender, nondistended Extremities: R wrist is looking much less edematous and less erythematous today; +1 BLE edema (chronic) Objective Objective Clinical Data: Abnormal lab results 06/02/18 06/02/18 06/02/18 Range/Units 06:45 06:45 06:45 RBC 3.48 L (4.50-6.00) m/cumm Hgb 12.3 L (13.5-17.5) g/dL Hct 36.3 L (40.0-50.0) % MCV 104.3 H (80-95) fL MCH 35.3 H (27.0-33.0) pg Absolute Monocytes 1.13 H (0.11-0.7) k/cumm PT 19.1 H (9.3-11.0) sec INR 1.9 H (0.9-1.1) BUN 21 H (7-18) mg/dL Glucose 114 H (70-100) mg/dL Vital Signs Temperature 36.5 C 06/02/18 19:47 Temperature Source Tympanic 06/02/18 19:47 Pulse 70 06/02/18 19:47 Pulse Rhythm Regular 06/02/18 13:08 Pulse 80 05/30/18 18:46 Respiratory Rate 18 06/02/18 19:47 Respiratory Effort 06/02/18 13:08 Respiratory Depth Normal 06/02/18 13:08 Respiratory Pattern Normal 06/02/18 13:08 Blood Pressure 105/65 06/02/18 19:47 Blood Pressure Mean 62 05/30/18 18:45 Blood Pressure Position Sitting 05/30/18 11:54 Pulse Oximetry 99 06/02/18 19:47 Oxygen Delivery Method Room Air 06/02/18 19:47 Oxygen Flow Rate 0 06/02/18 19:47 Pain Level 7 06/02/18 09:26 Comment 06/02/18 07:17 Intake & Output 06/01/18 06/02/18 06/02/18 23:59 11:59 23:59 Intake Total 760 / 1130 240 / 1240 1000 / 1240 Output Total 250 / 1270 200 / 1350 1150 / 1350 Balance 510 / -140 40 / -110 -150 / -110 Intake: IV 750 / 750 Oral 760 / 1120 240 / 490 250 / 490 Output: Urine 250 / 1270 200 / 1350 1150 / 1350 Other: Urine Color Yellow Yellow Pale Urine Appearance Clear Clear Urine Odor None Comment no hat in the toilet Stool Size Moderate Stool Characteristics Soft Formed Voiding Methods Toilet Urinal Toilet Laboratory Results WBC 7.20 k/cumm (4.4-10.8) 06/02/18 06:45 RBC 3.48 m/cumm (4.50-6.00) L 06/02/18 06:45 Hgb 12.3 g/dL (13.5-17.5) L 06/02/18 06:45 Hct 36.3 % (40.0-50.0) L 06/02/18 06:45 MCV 104.3 fL (80-95) H 06/02/18 06:45 MCH 35.3 pg (27.0-33.0) H 06/02/18 06:45 MCHC 33.9 g/dL (32.0-36.0) 06/02/18 06:45 RDW 12.5 % (11.8-14.1) 06/02/18 06:45 Plt Count 166 x1000/uL (130-400) 06/02/18 06:45 MPV 10.3 fL (8.0-11.0) 06/02/18 06:45 Immature Gran % 0.1 06/02/18 06:45 Neutrophils % 53.5 06/02/18 06:45 Lymphocytes % 24.4 06/02/18 06:45 Monocytes % 15.7 06/02/18 06:45 Eosinophils % 5.7 06/02/18 06:45 Basophils % 0.6 06/02/18 06:45 Absolute Neutrophils 3.85 k/cumm (1.2-6.7) 06/02/18 06:45 Absolute Lymphocytes 1.76 k/cumm (1.2-3.4) 06/02/18 06:45 Absolute Monocytes 1.13 k/cumm (0.11-0.7) H 06/02/18 06:45 Absolute Eosinophils 0.41 k/cumm (0.0-0.7) 06/02/18 06:45 Absolute Basophils 0.04 k/cumm (0.0-0.2) 06/02/18 06:45 Differential Comment Rbc morph reviewed 05/30/18 12:19 RBC Morphology See below 05/30/18 12:19 Polychromasia Present 05/30/18 12:19 Macrocytosis 3+ 05/30/18 12:19 Stomatocytes 2+ 05/30/18 12:19 ESR 48 MM/HR (1-20) H 05/30/18 12:19 PT 19.1 sec (9.3-11.0) H 06/02/18 06:45 INR 1.9 (0.9-1.1) H 06/02/18 06:45 Sodium 137 mmol/L (136-145) 06/02/18 06:45 Potassium 4.1 mmol/L (3.5-5.1) 06/02/18 06:45 Chloride 104 mmol/L (98-107) 06/02/18 06:45 Carbon Dioxide 26.5 mmol/L (21.0-32.0) 06/02/18 06:45 Anion Gap 6.5 mmol/L (3-11) 06/02/18 06:45 BUN 21 mg/dL (7-18) H 06/02/18 06:45 Creatinine 1.11 mg/dL (0.70-1.30) 06/02/18 06:45 Estimated GFR/1.73 m2 >= 60.00 (mL/min/1.73m2) 06/02/18 06:45 Glucose 114 mg/dL (70-100) H 06/02/18 06:45 Lactate 0.9 mmol/L (0.6-1.4) 06/01/18 07:32 Uric Acid 12.6 mg/dL (3.5-7.2) H 05/31/18 07:12 Calcium 8.5 mg/dL (8.5-10.1) 06/02/18 06:45 Magnesium 1.8 mg/dL (1.8-2.4) 06/02/18 06:45 Total Bilirubin 0.5 mg/dL (0.2-1.0) 05/30/18 12:19 AST 32 U/L (15-37) 05/30/18 12:19 ALT 12 U/L (12-78) 05/30/18 12:19 Alkaline Phosphatase 68 U/L (46-116) 05/30/18 12:19 Troponin I < 0.02 ng/mL (0.00-0.06) 05/30/18 12:19 C-Reactive Protein 1.57 mg/dL (0.0-0.3) H 05/30/18 17:49 NT-Pro-B Natriuret Pep 1332 pg/mL (-299) H 05/30/18 12:19 Total Protein 7.2 g/dL (6.4-8.2) 05/30/18 12:19 Albumin 3.1 g/dL (3.4-5.0) L 05/30/18 12:19 Urine Color Yellow (Yellow) 05/30/18 12:20 Urine Clarity Clear 05/30/18 12:20 Urine pH 6.5 (5-8) 05/30/18 12:20 Ur Specific [place] 1.015 (1.005-1.025) 05/30/18 12:20 Urine Protein Negative mg/dL (Negative) 05/30/18 12:20 Urine Ketones Negative mg/dL (Negative) 05/30/18 12:20 Urine Blood Negative (Negative) 05/30/18 12:20 Urine Nitrite Negative (Negative) 05/30/18 12:20 Urine Bilirubin Negative (Negative) 05/30/18 12:20 Urine Urobilinogen 0.2 EU/dL (Up TO 0.2) 05/30/18 12:20 Ur Leukocyte Esterase Negative (Negative) 05/30/18 12:20 Urine Glucose Negative mg/dL (Negative) 05/30/18 12:20 Digoxin 1.85 ng/mL (0.90-2.00) 05/30/18 12:25
[2018-06-02] MEDS: Simvastatin 20 MG TAB PO (20:51)
[2018-06-02] MEDS: Warfarin 4 MG TAB PO (20:51)
[2018-06-02] MEDS: Lidocaine 5% Patch 1 PATCH TP (20:51)
[2018-06-02] MEDS: rOPINIRole 0.5 MG TAB 0.25 MG PO (22:07)
[2018-06-03] VITALS (7 sets, daily range): BP systolic 102–119; BP diastolic 57–78; PULSE 69–70; RESP 16–20; TEMP 35.8–36.4; O2SAT 97–99
[2018-06-03] MEDS: VANCOMYCIN 750 MG in Normal Saline 250 ML 166.667 MG IV (01:42)
[2018-06-03] MEDS: traMADol 50 MG TAB PO ×4 (01:42→23:18)
[2018-06-03] MEDS: Normal Saline Flush 10 ML SYR IVP ×3 (01:43→13:24)
[2018-06-03] MEDS: HYDROmorphone 2 MG/ML VIAL 1 MG IVP (02:31)
[2018-06-03] MEDS: Patch Removal 1 EACH TP (07:00)
[2018-06-03] MEDS: DICLOFENAC 1% GEL 100 GM TUBE TP ×3 (07:11→17:25)
[2018-06-03 07:13] LABS: Abs Immature Grans 0.01 k/cumm (0.0-0.09); Absolute Basophil Count 0.04 k/cumm (0.0-0.2); Absolute Eosinophil Count 0.38 k/cumm (0.0-0.7); Absolute Lymphocyte Count 1.72 k/cumm (1.2-3.4); Absolute Monocyte Count 0.94 k/cumm (0.11-0.7); Absolute Neutrophil Count 4.03 k/cumm (1.2-6.7); Basophils % 0.6; Eosinophils % 5.3; HCT 36.9 % (40.0-50.0); HGB 12.6 g/dL (13.5-17.5); Immature Grans % 0.1; Lymphocytes % 24.2; Mean Corp. HGB Concentration 34.1 g/dL (32.0-36.0); Mean Corpuscular Hemoglobin 35.6 pg (27.0-33.0); Mean Corpuscular Volume 104.2 fL (80-95); Mean Platelet Volume 10.4 fL (8.0-11.0); Monocytes % 13.2; Neutrophils % 56.6; Platelet Count 206 x1000/uL (130-400); RBC 3.54 m/cumm (4.50-6.00); RBC Distribution Width 12.5 % (11.8-14.1); White Blood Cell Count 7.12 k/cumm (4.4-10.8)
[2018-06-03 07:21] LABS: Anion Gap 5.9 mmol/L (3-11); BUN 23 mg/dL (7-18); CO2 28.1 mmol/L (21.0-32.0); CREATININE 1.25 mg/dL (0.70-1.30); Calcium 8.6 mg/dL (8.5-10.1); Chloride 102 mmol/L (98-107); Estimated GFR 56.16 (mL/min/1.73m2); Glucose 117 mg/dL (70-100); Magnesium 1.7 mg/dL (1.8-2.4); Sodium 136 mmol/L (136-145)
[2018-06-03 07:24] LABS: INR 2.7 (0.9-1.1); Prothrombin Time 27.3 sec (9.3-11.0)
[2018-06-03] MEDS: Acetaminophen 500 MG TAB 1000 MG PO ×2 (08:01→19:54)
[2018-06-03] MEDS: Metoprolol 50 MG TAB PO ×2 (08:01→19:55)
[2018-06-03] MEDS: Magnesium Lactate-SR 84 MG TABCR PO ×2 (08:02→19:55)
[2018-06-03] MEDS: Digoxin 0.125 MG TAB PO (08:02)
[2018-06-03] MEDS: Colchicine 0.6 MG TAB PO ×2 (08:02→11:19)
--- NOTE | 2018-06-03 08:55 | PHARADMIT ---
Addendum entered by Zara Cisneros 06/03/18 11:04: warfarin dose was put on hold, watch INR/for this to restart IV mag replacement given addition to pts scheduled PO mag Original Note: Admission Pharmacy Clinical Review weakness, wrist pain Code Status DNI Current Weight 94.3 kg Renally Cleared and Narrow Therapeutic Index Meds Crcl ~54.0 mL/min using adjusted body weight current meds okay pt is on digoxin QTc Value / Action Taken QTc 456 BP Control, Fever BP 103/56 yesterday afebrile Electrolytes reviewed mag 1.7 DVT Prophylaxis on warfarin Opiate Usage / Scheduled Bowel Regimen Ordered PRN/none Plt/SCr for Heparin / Enoxaparin plt 206 SCr 1.25 INR for Warfarin INR 2.7 H/H stable, WBC/Bands h/h 12.6/36.9 wbc 7.12 Antibiotic appropriateness vanco, one blood culture grew gram+ cocci Cultures and Sensitivities one blood culture positive, others negative, possible contaminant so continuing abx until repeats from yesterday are negative at 48 hours Surgical ABX d/c within 24 hr n/a DM control / Insulin Dosing BG 117 sliding scale aspart Heart Failure (Check EF%) (PARMINDER's, B-Block, Diuretics) metoprolol, spironolactone, torsemide, sacubitril-valsartan(home med) IV to PO Switch n/a Home Meds Reviewed multiple [employer] depressants multiple meds cause bradycardia and lower blood pressure multiple diuretics Home Meds Not Ordered morphine (has hydromorphone ordered PRN), sacubitril-valsartan Comments -has gout, pain required hydromorphone overnight per morning report -order vanco trough for tomorrow if pt still on vanco/if its not discontinued due to blood cultures
[2018-06-03] MEDS: MAGNESIUM SULFATE 1 GM/100 ML BAG IVPB (11:19)
--- NOTE | 2018-06-03 11:22 | PT.INTREAT ---
Date of service: 06/03/18 Time of Service: 10:30 PT Notes Inpatient Physical Therapy Treatment Note [facility] Date: 06/03/18 PRECAUTIONS:fall, standard SUBJECTIVE: Irineo states that he's feeling a little under the weather today. He's been sitting up to the edge of the bed for the morning, and states that his wrist feels better, but he just feels crummy overall. OBJECTIVE: PAIN: right wrist BED MOBILITY/TRANSFERS Supine-sit: independent Sit-supine: independent Sit-stand: supervision Stand-sit: supervision Bed-Chair: supervision with WW Chair-bed: supervision with WW GAIT Assistive Device: FWW Weight bearing: full Assist: supervision Distance: 200' Deviation: none THEREX: as noted on flowsheet. Patient tolerated both open and closed chain strengthening activities with use of 3# weights for LE strengthening. STAIRS: Patient instructed in stair management, managing therapeutic stairs 6x2 and 4x3 with bilat rails, ascending and descending x 2. ASSESSMENT: Progressing well, and able to tolerate progression to FWW without use of platform due to improving wrist comfort. PLAN: Continue progressing strengthening and conditioning as tolerated. TREATMENT CODE/TIME: 30 minutes ([id number])
--- NOTE | 2018-06-03 11:28 | PTTR_ITS ---
Date of service: 06/03/18 Time of Service: 10:30 PT Notes Inpatient Physical Therapy Treatment Note [facility] Date: 06/03/18 PRECAUTIONS:fall, standard SUBJECTIVE: Irineo states that he's feeling a little under the weather today. H e's been sitting up to the edge of the bed for the morning, and states that his wrist feels better, but he just feels crummy overall. OBJECTIVE: PAIN: right wrist BED MOBILITY/TRANSFERS Supine-sit: independent Sit-supine: independent Sit-stand: supervision Stand-sit: supervision Bed-Chair: supervision with WW Chair-bed: supervision with WW GAIT Assistive Device: FWW Weight bearing: full Assist: supervision Distance: 200' Deviation: none THEREX: as noted on flowsheet. Patient tolerated both open and closed chain strengthening activities with use of 3# weights for LE strengthening. STAIRS: Patient instructed in stair management, managing therapeutic stairs 6x2 and 4x3 with bilat rails, ascending and descending x 2. ASSESSMENT: Progressing well, and able to tolerate progression to FWW without use of platform due to improving wrist comfort. PLAN: Continue progressing strengthening and conditioning as tolerated. TREATMENT CODE/TIME: 30 minutes ([id number])
[2018-06-03] MEDS: Insulin Aspart 300 UNITS/3 ML PEN SC ×2 (12:08→16:59)
[2018-06-03] MEDS: VANCOMYCIN 750 MG in Normal Saline 250 ML 166.67 MG IV (14:32)
[2018-06-03] MEDS: Normal Saline 500 ML 200 ML IV (14:32)
--- NOTE | 2018-06-03 15:55 | PT.INTREAT ---
Date of service: 06/03/18 Time of Service: 15:56 PT Notes [facility] Date: 06/03/18 PRECAUTIONS: Fall SUBJECTIVE: Irineo reports that his R arm is feeling better today. OBJECTIVE: PAIN:No c/o pain BED MOBILITY/TRANSFERS Supine-sit: I Sit-supine: I Sit-stand: S Stand-sit: S GAIT Assistive Device: FWW Weight bearing: Full Assist: S Distance: 15 minutes on various surfaces (carpet, linoleum) THEREX: Patient completed a resisted UE and LE strengthening program, as per flow sheet. Patient was issued red Theraband for increases resistance. ASSESSMENT: Patient tolerated session well without complaint. Patient was able to tolerate a progression in gait duration tolerance with FWW support and supervision. He would benefit from continued strengthening for improved activity tolerance. PLAN: Continue with PT's POC TREATMENT CODE/TIME: 30 minutes; (05004m6, [id number])
--- NOTE | 2018-06-03 18:43 | W.PM.PROGNOT ---
Date of Service Date of service: 06/03/18 Time of Service: 15:35 Assessment and Plan (1) Positive blood culture: Current visit: Yes Status: Acute Likely contaminant (1/4 bottles positive; clinical response observed prior to any antibiotics being given). Continue vancomycin until repeat blood cultures are negative. So far, sensitivities on original culture are not known. (2) Right wrist pain: Current visit: No Status: Acute Clinically, most likely gout. Improving drastically. Continue colchicine. Pain relief with ultram and diclofenac gel. Continue working with PT/OT. Appreciate ortho consult (3) Weakness: Current visit: No Status: Acute Agree that this is possibly due to polypharmacy/addition of entresto. Improving off entresto. COntinue working PT/OT. He will not need rehab. (4) Cardiomyopathy: Current visit: No Status: Chronic Euvolemic, s/p AICD. EF is not easily available in our medical record. Will continue to hold entresto. COntinue torsemide and aldactone. (5) Controlled diabetes mellitus: Current visit: No Status: Acute Continue SSI (6) Essential hypertension: Current visit: No Status: Acute meds resumed with holding parameters (7) AF (paroxysmal atrial fibrillation): Current visit: No Status: Chronic Rate controlled. Continue anticoagluation with coumadin. (8) MGUS (monoclonal gammopathy of unknown significance): Current visit: No Status: Chronic F/u as outpatient (9) Discharge planning issues: Current visit: No Status: Acute DNI Has an AICD in place, not DNR. PT/OT consulted - may need placement (10) DVT prophylaxis: Current visit: No Status: Acute On therapeutic coumadin Subjective Interval history since last seen: Feels better today, but had a lot more pain in his wrist last night. He is able to use a walker and hold it with his right hand today, and his ROM is improving. He denies dizziness, chest pain, shortness of breath, nausea, vomiting. Exam Narrative Exam Narrative: General: Elderly male, sitting in a chair and later seen ambulating in the hallway with a walker. HEENT: EOMI, MMM Heart: Irregularly irregular rhythm, + RICH Lungs: CTAB GI: abdomen is soft, nontender, nondistended Extremities: R wrist looks even better; +1 BLE edema (chronic) Objective Objective Clinical Data: Abnormal lab results 06/03/18 06/03/18 06/03/18 Range/Units 06:25 06:25 06:25 RBC 3.54 L (4.50-6.00) m/cumm Hgb 12.6 L (13.5-17.5) g/dL Hct 36.9 L (40.0-50.0) % MCV 104.2 H (80-95) fL MCH 35.6 H (27.0-33.0) pg Absolute Monocytes 0.94 H (0.11-0.7) k/cumm PT 27.3 H D (9.3-11.0) sec INR 2.7 H D (0.9-1.1) BUN 23 H (7-18) mg/dL Glucose 117 H (70-100) mg/dL Magnesium 1.7 L (1.8-2.4) mg/dL Vital Signs Temperature 36.2 C L 06/03/18 17:00 Temperature Source Tympanic 06/03/18 17:00 Pulse 69 06/03/18 17:00 Pulse Rhythm Regular 06/03/18 07:27 Pulse 80 05/30/18 18:46 Respiratory Rate 20 06/03/18 17:00 Respiratory Effort Non-Labored 06/03/18 07:27 Respiratory Depth Normal 06/03/18 07:27 Respiratory Pattern Normal 06/03/18 07:27 Blood Pressure 109/72 06/03/18 17:00 Blood Pressure Mean 62 05/30/18 18:45 Blood Pressure Position Sitting 05/30/18 11:54 Pulse Oximetry 98 06/03/18 17:00 Oxygen Delivery Method Room Air 06/03/18 17:00 Oxygen Flow Rate 0 06/03/18 17:00 Pain Level 7 06/03/18 17:29 Comment 06/02/18 07:17 Intake & Output 06/02/18 06/03/18 06/03/18 23:59 11:59 23:59 Intake Total 1000 / 1240 1340 / 2233.333 893.333 / 2233.333 Output Total 1150 / 1350 200 / 400 200 / 400 Balance -150 / -110 1140 / 1833.333 693.333 / 1833.333 Intake: IV 750 / 750 250 / 663.333 413.333 / 663.333 Oral 250 / 490 1090 / 1570 480 / 1570 Output: Urine 1150 / 1350 200 / 400 200 / 400 Other: Urine Color Pale Yellow Yellow Yellow Urine Appearance Clear Clear Clear Urine Odor None Comment passes urine independently in the tiolet Per pt. report, void x3 in the toilet throughout the day. Voiding Methods Toilet Urinal Urinal Laboratory Results WBC 7.12 k/cumm (4.4-10.8) 06/03/18 06:25 RBC 3.54 m/cumm (4.50-6.00) L 06/03/18 06:25 Hgb 12.6 g/dL (13.5-17.5) L 06/03/18 06:25 Hct 36.9 % (40.0-50.0) L 06/03/18 06:25 MCV 104.2 fL (80-95) H 06/03/18 06:25 MCH 35.6 pg (27.0-33.0) H 06/03/18 06:25 MCHC 34.1 g/dL (32.0-36.0) 06/03/18 06:25 RDW 12.5 % (11.8-14.1) 06/03/18 06:25 Plt Count 206 x1000/uL (130-400) 06/03/18 06:25 MPV 10.4 fL (8.0-11.0) 06/03/18 06:25 Immature Gran % 0.1 06/03/18 06:25 Neutrophils % 56.6 06/03/18 06:25 Lymphocytes % 24.2 06/03/18 06:25 Monocytes % 13.2 06/03/18 06:25 Eosinophils % 5.3 06/03/18 06:25 Basophils % 0.6 06/03/18 06:25 Absolute Neutrophils 4.03 k/cumm (1.2-6.7) 06/03/18 06:25 Absolute Lymphocytes 1.72 k/cumm (1.2-3.4) 06/03/18 06:25 Absolute Monocytes 0.94 k/cumm (0.11-0.7) H 06/03/18 06:25 Absolute Eosinophils 0.38 k/cumm (0.0-0.7) 06/03/18 06:25 Absolute Basophils 0.04 k/cumm (0.0-0.2) 06/03/18 06:25 Differential Comment Rbc morph reviewed 05/30/18 12:19 RBC Morphology See below 05/30/18 12:19 Polychromasia Present 05/30/18 12:19 Macrocytosis 3+ 05/30/18 12:19 Stomatocytes 2+ 05/30/18 12:19 ESR 48 MM/HR (1-20) H 05/30/18 12:19 PT 27.3 sec (9.3-11.0) H D 06/03/18 06:25 INR 2.7 (0.9-1.1) H D 06/03/18 06:25 Sodium 136 mmol/L (136-145) 06/03/18 06:25 Potassium 4.0 mmol/L (3.5-5.1) 06/03/18 06:25 Chloride 102 mmol/L (98-107) 06/03/18 06:25 Carbon Dioxide 28.1 mmol/L (21.0-32.0) 06/03/18 06:25 Anion Gap 5.9 mmol/L (3-11) 06/03/18 06:25 BUN 23 mg/dL (7-18) H 06/03/18 06:25 Creatinine 1.25 mg/dL (0.70-1.30) 06/03/18 06:25 Estimated GFR/1.73 m2 56.16 (mL/min/1.73m2) 06/03/18 06:25 Glucose 117 mg/dL (70-100) H 06/03/18 06:25 Lactate 0.9 mmol/L (0.6-1.4) 06/01/18 07:32 Uric Acid 12.6 mg/dL (3.5-7.2) H 05/31/18 07:12 Calcium 8.6 mg/dL (8.5-10.1) 06/03/18 06:25 Magnesium 1.7 mg/dL (1.8-2.4) L 06/03/18 06:25 Total Bilirubin 0.5 mg/dL (0.2-1.0) 05/30/18 12:19 AST 32 U/L (15-37) 05/30/18 12:19 ALT 12 U/L (12-78) 05/30/18 12:19 Alkaline Phosphatase 68 U/L (46-116) 05/30/18 12:19 Troponin I < 0.02 ng/mL (0.00-0.06) 05/30/18 12:19 C-Reactive Protein 1.57 mg/dL (0.0-0.3) H 05/30/18 17:49 NT-Pro-B Natriuret Pep 1332 pg/mL (-299) H 05/30/18 12:19 Total Protein 7.2 g/dL (6.4-8.2) 05/30/18 12:19 Albumin 3.1 g/dL (3.4-5.0) L 05/30/18 12:19 Urine Color Yellow (Yellow) 05/30/18 12:20 Urine Clarity Clear 05/30/18 12:20 Urine pH 6.5 (5-8) 05/30/18 12:20 Ur Specific [place] 1.015 (1.005-1.025) 05/30/18 12:20 Urine Protein Negative mg/dL (Negative) 05/30/18 12:20 Urine Ketones Negative mg/dL (Negative) 05/30/18 12:20 Urine Blood Negative (Negative) 05/30/18 12:20 Urine Nitrite Negative (Negative) 05/30/18 12:20 Urine Bilirubin Negative (Negative) 05/30/18 12:20 Urine Urobilinogen 0.2 EU/dL (Up TO 0.2) 05/30/18 12:20 Ur Leukocyte Esterase Negative (Negative) 05/30/18 12:20 Urine Glucose Negative mg/dL (Negative) 05/30/18 12:20 Digoxin 1.85 ng/mL (0.90-2.00) 05/30/18 12:25
--- NOTE | 2018-06-03 18:50 | PDOC.CMPRO ---
Care Management Progress Note S/O: Srini was lying in bed when CM met with him. He shared concerns around increased pain in his wrist and hand last night but reported gains in movement with PT. CM spoke with Juju; Srini daughter who explained barrier to setting up [employer] support due to [employer] requiring seperate access as his pacemaker is connected to modem at his home and cell/GPS service is unavailable. CM spoke with DENILSON who recommended [facility]; Juju reported reaching out to [facility] but has yet to receive response. CM discussed option counseling and [facility] which Juju and Srini were agreeable to. CM will continue to follow. A: 78 yo male admitted for weakness and wrist pain P: Srini will return home when ready per MD. He will have a new referral provided by this television writer for MOW and Options counseling through the [facility]: CM faxed order and provided [facility] resources. CM will fax referral to [facility] as well. Srini will transport via private vehicle with his daughter, Juju.
--- NOTE | 2018-06-03 18:53 | CMPROGNOTE_ITS ---
Care Management Progress Note S/O: Srini was lying in bed when CM met with him. He shared concerns around increased pain in his wrist and hand last night but reported gains in movement with PT. CM spoke with Juju; Srini daughter who explained barrier to setting up [employer] support due to [employer] requiring seperate access as his pacemaker is connected to modem at his home and cell/GPS service is unavailable. CM spoke with DENILSON who recommended [facility]; Juju reported reaching out to [facility] but has yet to receive response. CM discussed option counseling and [facility] which Juju and Srini were agreeable to. CM will continue to follow. A: 78 yo male admitted for weakness and wrist pain P: Srini will return home when ready per MD. He will have a new referral provided by this blog writer for [facility] and [facility] counseling through the [facility]: CM faxed order and provided [facility] resources. CM will fax referral to [facility] as well. Srini will transport via private vehicle with his daughter, Juju.
[2018-06-03] MEDS: Lidocaine 5% Patch 1 PATCH TP (19:55)
[2018-06-03] MEDS: Simvastatin 20 MG TAB PO (19:55)
[2018-06-03] MEDS: rOPINIRole 0.5 MG TAB 0.25 MG PO (21:39)
[2018-06-04] VITALS (11 sets, daily range): BP systolic 108–118; BP diastolic 67–75; PULSE 59–74; RESP 16–19; TEMP 35.7–36.2; O2SAT 92–99
[2018-06-04] MEDS: VANCOMYCIN 750 MG in Normal Saline 250 ML 167 MG IV ×2 (02:27→14:50)
[2018-06-04] MEDS: DICLOFENAC 1% GEL 100 GM TUBE TP ×3 (06:06→17:37)
[2018-06-04] MEDS: Patch Removal 1 EACH TP (06:06)
[2018-06-04 07:27] LABS: Abs Immature Grans 0.01 k/cumm (0.0-0.09); Absolute Basophil Count 0.04 k/cumm (0.0-0.2); Absolute Eosinophil Count 0.42 k/cumm (0.0-0.7); Absolute Lymphocyte Count 1.54 k/cumm (1.2-3.4); Absolute Monocyte Count 0.88 k/cumm (0.11-0.7); Absolute Neutrophil Count 3.09 k/cumm (1.2-6.7); Basophils % 0.7; HCT 35.9 % (40.0-50.0); HGB 12.1 g/dL (13.5-17.5); Immature Grans % 0.2; Lymphocytes % 25.8; Mean Corp. HGB Concentration 33.7 g/dL (32.0-36.0); Mean Corpuscular Hemoglobin 35.3 pg (27.0-33.0); Mean Corpuscular Volume 104.7 fL (80-95); Mean Platelet Volume 10.2 fL (8.0-11.0); Monocytes % 14.7; Neutrophils % 51.6; Platelet Count 197 x1000/uL (130-400); RBC 3.43 m/cumm (4.50-6.00); RBC Distribution Width 12.4 % (11.8-14.1); White Blood Cell Count 5.98 k/cumm (4.4-10.8)
[2018-06-04 07:30] LABS: Anion Gap 8.2 mmol/L (3-11); BUN 17 mg/dL (7-18); CO2 26.8 mmol/L (21.0-32.0); CREATININE 1.01 mg/dL (0.70-1.30); Calcium 8.7 mg/dL (8.5-10.1); Chloride 105 mmol/L (98-107); Glucose 111 mg/dL (70-100); INR 3.3 (0.9-1.1); Magnesium 1.9 mg/dL (1.8-2.4); Potassium 4.1 mmol/L (3.5-5.1); Prothrombin Time 33.8 sec (9.3-11.0); Sodium 140 mmol/L (136-145)
[2018-06-04] MEDS: Spironolactone 25 MG TAB 12.5 MG PO (08:10)
[2018-06-04] MEDS: Digoxin 0.125 MG TAB PO (08:11)
[2018-06-04] MEDS: Torsemide 20 MG TAB 60 MG PO (08:11)
[2018-06-04] MEDS: Acetaminophen 500 MG TAB 1000 MG PO ×2 (08:12→21:31)
[2018-06-04] MEDS: Colchicine 0.6 MG TAB PO (08:12)
[2018-06-04] MEDS: Metoprolol 50 MG TAB PO ×2 (08:13→21:32)
[2018-06-04] MEDS: Magnesium Lactate-SR 84 MG TABCR PO ×2 (08:16→21:32)
--- NOTE | 2018-06-04 12:30 | PT.INTREAT ---
Date of service: 06/04/18 Time of Service: 09:00 PT Notes [facility] Date: 06/04/18 PRECAUTIONS: Fall SUBJECTIVE: Irineo reports that he had a difficult night. He states that he awoke and was very confused, and required assistance from nursing. He states that the whole thing was very unsettling for him. OBJECTIVE: PAIN:Continued wrist pain. BED MOBILITY/TRANSFERS Supine-sit: I Sit-supine: I Sit-stand: Independent Stand-sit: Independent GAIT Assistive Device: FWW Weight bearing: Full Assist: S Distance: 250' THEREX: Patient completed a resisted UE and LE strengthening program, as per flow sheet. He is unable to tolerate theraband resisted exercises due to right wrist pain. ASSESSMENT: Continuing to demonstrate progress toward established goals. Patient continues to be independent for short distance ambulation. PLAN: Continue per established POC TREATMENT CODE/TIME: 30 minutes; ([id number], [id number])
[2018-06-04 14:11] LABS: Troponin I < 0.02 ng/mL (0.00-0.06)
--- NOTE | 2018-06-04 14:44 | DI.CT_ITS ---
SYMPTOMS/DIAGNOSIS: TRANSIENT CHANGE IN MENTAL STATUS, ? CVA CRANIAL CT: The study is compared with a recent examination of 05/30/2018 and there has been no significant interval change with note again made of cerebral atrophy and regions of diminished attenuation in the frontoparietal white matter consistent with small vessel disease. 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 There is no evidence of an intra/extra-axial hemorrhage or mass. The ventricles are intact. SUMMARY: No interval change when compared with the previous study of 05/30/2018. There is no evidence of a hemorrhage, mass and nothing to suggest a new region of infarction with multiple old infarcts demonstrated on the examination. Please see the body of the report.
[2018-06-04] MEDS: Normal Saline Flush 10 ML SYR IVP (14:50)
--- NOTE | 2018-06-04 16:10 | PT.INNT ---
Date of service: 06/04/18 Time of Service: 16:10 PT Notes 06/04/18 Patient refused afternoon PT session, stating that he is feeling well today. Will attempt to resume PT services tomorrow morning.
--- NOTE | 2018-06-04 17:14 | PDOC.CMPRO ---
Care Management Progress Note S/O: Srini was lying in bed when CM met with him. He shared concerns around increased pain in his wrist and hand last night but reported gains in movement with PT. CM spoke with Juju; Srini daughter who explained barrier to setting up [facility] support due to [facility] requiring seperate access as his pacemaker is connected to modem at his home and cell/GPS service is unavailable. CM spoke with DENILSON who recommended [facility]; Juju reported reaching out to [facility] but has yet to receive response. CM discussed option counseling and [facility] which Juju and Srini were agreeable to. CM will continue to follow. A: 78 yo male admitted for weakness and wrist pain P: Srini will return home when ready per MD. He will have a new referral provided by this securities underwriter for [facility] and Options counseling through the [facility]: CM faxed order and provided [facility] resources. CM will fax referral to [facility] as well. Srini will transport via private vehicle with his daughter, Juju.
--- NOTE | 2018-06-04 17:17 | CMPROGNOTE_ITS ---
Care Management Progress Note S/O: Srini was lying in bed when CM met with him. He shared concerns around increased pain in his wrist and hand last night but reported gains in movement with PT. CM spoke with Juju; Srini daughter who explained barrier to setting up [facility] support due to [facility] requiring seperate access as his pacemaker is connected to modem at his home and cell/GPS service is unavailable. CM spoke with DENILSON who recommended [facility]; Juju reported reaching out to [facility] but has yet to receive response. CM discussed option counseling and [facility] which Juju and Srini were agreeable to. CM will continue to follow. A: 78 yo male admitted for weakness and wrist pain P: Srini will return home when ready per MD. He will have a new referral provided by this typewriter tester for [facility] and Options counseling through the [facility]: CM faxed order and provided [facility] resources. CM will fax referral to [facility] as well. Srini will transport via private vehicle with his daughter, Juju.
[2018-06-04] MEDS: traMADol 50 MG TAB PO (17:37)
--- NOTE | 2018-06-04 21:04 | PGE_ITS ---
Date of Service Date of service: 06/04/18 Time of Service: 14:00 Assessment and Plan (1) Transient confusion: Current visit: Yes Status: Acute Doubt TIA, but it's not impossible. More likely a side effect of pain medications. Monitor on tele. I d/c'ed dilaudid. Monitor behaviors. (2) Positive blood culture: Current visit: Yes Status: Acute Coag negative staph; Likely contaminant (1/4 bottles positive; clinical response observed prior to any antibiotics being given). D/c vancomycin. (3) Right wrist pain: Current visit: No Status: Acute Likely due to gout. Improving drastically. Continue colchicine. Pain relief with ultram and diclofenac gel. Continue working with PT/OT. Appreciate ortho consult (4) Weakness: Current visit: No Status: Acute Agree that this is possibly due to polypharmacy/addition of entresto. Improving off entresto. COntinue working PT/OT. He will not need rehab. (5) Cardiomyopathy: Current visit: No Status: Chronic Euvolemic, s/p AICD. EF is not easily available in our medical record. Will continue to hold entresto. Continue torsemide and aldactone. (6) Controlled diabetes mellitus: Current visit: No Status: Acute Continue SSI (7) Essential hypertension: Current visit: No Status: Acute meds resumed with holding parameters (8) AF (paroxysmal atrial fibrillation): Current visit: No Status: Chronic Rate controlled. Continue anticoagluation with coumadin. (9) MGUS (monoclonal gammopathy of unknown significance): Current visit: No Status: Chronic F/u as outpatient (10) Discharge planning issues: Current visit: No Status: Acute DNI Has an AICD in place, not DNR. PT/OT (11) DVT prophylaxis: Current visit: No Status: Acute On therapeutic coumadin Subjective Interval history since last seen: States that last night he had an episode of disorientation that lasted a while when he woke up in the middle of the night. He thinks that it lasted longer than 30 minutes. He was incontinent of urine. He states he had never had an episode like that before and that he is nervous about going home until he knows what that was. Of note, he did get dilaudid last night, but I am unable to see whether or not this happened before or after the episode. Denies dizziness, chest pain, shortness of breath, nausea, vomiting now. His wrist still hurts, but is better. Exam Narrative Exam Narrative: General: Elderly male, sitting up in bed HEENT: EOMI, MMM Heart: Irregularly irregular rhythm, + RICH Lungs: CTAB GI: abdomen is soft, nontender, nondistended Extremities: R wrist looks practically normal; +1 BLE edema (chronic) Objective Objective Clinical Data: Abnormal lab results 06/04/18 06/04/18 06/04/18 Range/Units 06:48 06:48 06:48 RBC 3.43 L (4.50-6.00) m/cumm Hgb 12.1 L (13.5-17.5) g/dL Hct 35.9 L (40.0-50.0) % MCV 104.7 H (80-95) fL MCH 35.3 H (27.0-33.0) pg Absolute Monocytes 0.88 H (0.11-0.7) k/cumm PT 33.8 H (9.3-11.0) sec INR 3.3 H D (0.9-1.1) Glucose 111 H (70-100) mg/dL Vital Signs Temperature 35.7 C L 06/04/18 19:38 Temperature Source Tympanic 06/04/18 19:38 Pulse 70 06/04/18 19:38 Pulse Rhythm Regular 06/04/18 08:03 Pulse 80 05/30/18 18:46 Respiratory Rate 18 06/04/18 19:38 Respiratory Effort Non-Labored 06/04/18 08:03 Respiratory Depth Normal 06/04/18 08:03 Respiratory Pattern Normal 06/04/18 08:03 Blood Pressure 108/69 06/04/18 19:38 Blood Pressure Mean 62 05/30/18 18:45 Blood Pressure Position Sitting 05/30/18 11:54 Pulse Oximetry 99 06/04/18 19:38 Oxygen Delivery Method Room Air 06/04/18 19:38 Oxygen Flow Rate 0 06/04/18 19:38 Pain Level 8 06/04/18 17:37 Comment 06/02/18 07:17 Intake & Output 06/03/18 06/04/18 06/04/18 23:59 11:59 23:59 Intake Total 893.333 / 2233.333 620 / 870 250 / 870 Output Total 200 / 400 1250 / 2050 800 / 2050 Balance 693.333 / 1833.333 -630 / -1180 -550 / -1180 Intake: IV 413.333 / 663.333 260 / 270 10 / 270 Oral 480 / 1570 360 / 600 240 / 600 Output: Urine 200 / 400 1250 / 1950 700 / 1950 Post Void Residual 100 / 100 Other: Urine Color Yellow Yellow Pale Yellow Urine Appearance Clear Clear Clear Urine Odor Normal Normal Comment Per pt. report, void x3 in the toilet throughout the day. Urinal x2. Voiding Methods Urinal Toilet Urinal Laboratory Results WBC 5.98 k/cumm (4.4-10.8) 06/04/18 06:48 RBC 3.43 m/cumm (4.50-6.00) L 06/04/18 06:48 Hgb 12.1 g/dL (13.5-17.5) L 06/04/18 06:48 Hct 35.9 % (40.0-50.0) L 06/04/18 06:48 MCV 104.7 fL (80-95) H 06/04/18 06:48 MCH 35.3 pg (27.0-33.0) H 06/04/18 06:48 MCHC 33.7 g/dL (32.0-36.0) 06/04/18 06:48 RDW 12.4 % (11.8-14.1) 06/04/18 06:48 Plt Count 197 x1000/uL (130-400) 06/04/18 06:48 MPV 10.2 fL (8.0-11.0) 06/04/18 06:48 Immature Gran % 0.2 06/04/18 06:48 Neutrophils % 51.6 06/04/18 06:48 Lymphocytes % 25.8 06/04/18 06:48 Monocytes % 14.7 06/04/18 06:48 Eosinophils % 7.0 06/04/18 06:48 Basophils % 0.7 06/04/18 06:48 Absolute Neutrophils 3.09 k/cumm (1.2-6.7) 06/04/18 06:48 Absolute Lymphocytes 1.54 k/cumm (1.2-3.4) 06/04/18 06:48 Absolute Monocytes 0.88 k/cumm (0.11-0.7) H 06/04/18 06:48 Absolute Eosinophils 0.42 k/cumm (0.0-0.7) 06/04/18 06:48 Absolute Basophils 0.04 k/cumm (0.0-0.2) 06/04/18 06:48 Differential Comment Rbc morph reviewed 05/30/18 12:19 RBC Morphology See below 05/30/18 12:19 Polychromasia Present 05/30/18 12:19 Macrocytosis 3+ 05/30/18 12:19 Stomatocytes 2+ 05/30/18 12:19 ESR 48 MM/HR (1-20) H 05/30/18 12:19 PT 33.8 sec (9.3-11.0) H 06/04/18 06:48 INR 3.3 (0.9-1.1) H D 06/04/18 06:48 Sodium 140 mmol/L (136-145) 06/04/18 06:48 Potassium 4.1 mmol/L (3.5-5.1) 06/04/18 06:48 Chloride 105 mmol/L (98-107) 06/04/18 06:48 Carbon Dioxide 26.8 mmol/L (21.0-32.0) 06/04/18 06:48 Anion Gap 8.2 mmol/L (3-11) 06/04/18 06:48 BUN 17 mg/dL (7-18) D 06/04/18 06:48 Creatinine 1.01 mg/dL (0.70-1.30) 06/04/18 06:48 Estimated GFR/1.73 m2 >= 60.00 (mL/min/1.73m2) 06/04/18 06:48 Glucose 111 mg/dL (70-100) H 06/04/18 06:48 Lactate 0.9 mmol/L (0.6-1.4) 06/01/18 07:32 Uric Acid 12.6 mg/dL (3.5-7.2) H 05/31/18 07:12 Calcium 8.7 mg/dL (8.5-10.1) 06/04/18 06:48 Magnesium 1.9 mg/dL (1.8-2.4) 06/04/18 06:48 Total Bilirubin 0.5 mg/dL (0.2-1.0) 05/30/18 12:19 AST 32 U/L (15-37) 05/30/18 12:19 ALT 12 U/L (12-78) 05/30/18 12:19 Alkaline Phosphatase 68 U/L (46-116) 05/30/18 12:19 Troponin I < 0.02 ng/mL (0.00-0.06) 06/04/18 06:48 C-Reactive Protein 1.57 mg/dL (0.0-0.3) H 05/30/18 17:49 NT-Pro-B Natriuret Pep 1332 pg/mL (-299) H 05/30/18 12:19 Total Protein 7.2 g/dL (6.4-8.2) 05/30/18 12:19 Albumin 3.1 g/dL (3.4-5.0) L 05/30/18 12:19 Urine Color Yellow (Yellow) 05/30/18 12:20 Urine Clarity Clear 05/30/18 12:20 Urine pH 6.5 (5-8) 05/30/18 12:20 Ur Specific [employer] 1.015 (1.005-1.025) 05/30/18 12:20 Urine Protein Negative mg/dL (Negative) 05/30/18 12:20 Urine Ketones Negative mg/dL (Negative) 05/30/18 12:20 Urine Blood Negative (Negative) 05/30/18 12:20 Urine Nitrite Negative (Negative) 05/30/18 12:20 Urine Bilirubin Negative (Negative) 05/30/18 12:20 Urine Urobilinogen 0.2 EU/dL (Up TO 0.2) 05/30/18 12:20 Ur Leukocyte Esterase Negative (Negative) 05/30/18 12:20 Urine Glucose Negative mg/dL (Negative) 05/30/18 12:20 Digoxin 1.85 ng/mL (0.90-2.00) 05/30/18 12:25
[2018-06-04] MEDS: rOPINIRole 0.5 MG TAB 0.25 MG PO (21:31)
[2018-06-04] MEDS: Lidocaine 5% Patch 1 PATCH TP (21:31)
[2018-06-04] MEDS: Simvastatin 20 MG TAB PO (21:32)
[2018-06-05] VITALS (8 sets, daily range): BP systolic 101–108; BP diastolic 65–71; PULSE 67–71; RESP 18; TEMP 36–36.8; O2SAT 93–98
[2018-06-05] MEDS: traMADol 50 MG TAB PO ×2 (01:11→08:40)
[2018-06-05] MEDS: Patch Removal 1 EACH TP (07:23)
[2018-06-05] MEDS: DICLOFENAC 1% GEL 100 GM TUBE TP ×2 (07:23→13:06)
[2018-06-05 07:31] LABS: Abs Immature Grans 0.02 k/cumm (0.0-0.09); Absolute Basophil Count 0.05 k/cumm (0.0-0.2); Absolute Eosinophil Count 0.42 k/cumm (0.0-0.7); Absolute Lymphocyte Count 1.71 k/cumm (1.2-3.4); Absolute Monocyte Count 0.96 k/cumm (0.11-0.7); Absolute Neutrophil Count 3.85 k/cumm (1.2-6.7); Basophils % 0.7; HGB 12.6 g/dL (13.5-17.5); Immature Grans % 0.3; Lymphocytes % 24.4; Mean Corp. HGB Concentration 34.1 g/dL (32.0-36.0); Mean Corpuscular Hemoglobin 35.3 pg (27.0-33.0); Mean Corpuscular Volume 103.6 fL (80-95); Monocytes % 13.7; Neutrophils % 54.9; Platelet Count 196 x1000/uL (130-400); RBC 3.57 m/cumm (4.50-6.00); RBC Distribution Width 12.3 % (11.8-14.1); White Blood Cell Count 7.01 k/cumm (4.4-10.8)
[2018-06-05 07:40] LABS: INR 2.6 (0.9-1.1); Prothrombin Time 26.4 sec (9.3-11.0)
[2018-06-05 07:44] LABS: BUN 19 mg/dL (7-18); CREATININE 1.22 mg/dL (0.70-1.30); Calcium 8.9 mg/dL (8.5-10.1); Chloride 103 mmol/L (98-107); Estimated GFR 57.75 (mL/min/1.73m2); Glucose 112 mg/dL (70-100); Magnesium 1.8 mg/dL (1.8-2.4); Sodium 139 mmol/L (136-145)
[2018-06-05] MEDS: Insulin Aspart 300 UNITS/3 ML PEN SC (08:37)
[2018-06-05] MEDS: Spironolactone 25 MG TAB 12.5 MG PO (08:38)
[2018-06-05] MEDS: Digoxin 0.125 MG TAB PO (08:39)
[2018-06-05] MEDS: Colchicine 0.6 MG TAB PO (08:40)
[2018-06-05] MEDS: Metoprolol 50 MG TAB PO (08:41)
[2018-06-05] MEDS: Acetaminophen 500 MG TAB 1000 MG PO (08:41)
[2018-06-05] MEDS: Torsemide 20 MG TAB 60 MG PO (08:41)
[2018-06-05] MEDS: Magnesium Lactate-SR 84 MG TABCR PO (08:41)
--- NOTE | 2018-06-05 12:59 | PT.INTREAT ---
Date of service: 06/05/18 Time of Service: 12:59 PT Notes Inpatient Physical Therapy Treatment Note [facility] Date: 06/05/18 PRECAUTIONS: Fall SUBJECTIVE: Irineo states that he is feeling a little better today, but he would like to return home. OBJECTIVE: PAIN: Patient complains of some discomfort in right wrist BED MOBILITY/TRANSFERS Supine-sit: I Sit-supine: I Sit-stand: I Stand-sit: I GAIT Assistive Device: FWW Weight bearing: Full Assist: S Distance: 300' Deviation: Seated rest x1 THEREX: Patient completed a resisted upper extremity and lower extremity strengthening program, as per flow sheet. ASSESSMENT: Patient tolerated session well with complaints of discomfort in right wrist. Patient would benefit from continued participation in a strengthening program for improved activity tolerance. PLAN: As per primary PT TREATMENT CODE/TIME: 30 minutes; 12567, 78861
--- NOTE | 2018-06-05 13:16 | W.PM.DS.N ---
Date of service: 06/05/18 Time of Service: 13:16 DS: Diagnosis Discharge Diagnosis (1) Transient confusion: Status: Acute (2) Positive blood culture: Status: Acute (3) Right wrist pain: Status: Acute (4) Weakness: Status: Acute (5) Cardiomyopathy: Status: Chronic (6) Controlled diabetes mellitus: Status: Acute (7) Essential hypertension: Status: Acute (8) AF (paroxysmal atrial fibrillation): Status: Chronic (9) MGUS (monoclonal gammopathy of unknown significance): Status: Chronic Discharge Plan Disposition Patient Disposition: HOME Condition: Improving Discharge Details Reason For Visit: WEAKNESS,WRIST PAIN Admit Date/Time: 05/30/18 18:23 Admit Provider: Rubens Hernandez Attending Provider: Rubens Hernandez Primary Care Provider: Bennie Adams Hospital Course Hospital Course: Srini Romano is a pleasant 78-year-old male with multiple medical problems including congestive heart failure, MGUS, paroxysmal atrial fibrillation, hyperlipidemia, hypertension, diabetes, BPH, coronary artery disease, history of TIA, bronchiectasis who presented to the emergency department on 05/30/2018 with reports of severe right wrist pain and progressive weakness. Of note he was started approximately 2 weeks prior to his admission on Entresto. In the emergency department he had x-rays of the right wrist which were negative, his white blood cell count was 14,000, sed rate was noted to be 48. His uric acid was elevated at 12.2. He was started on Cholchicine for the treatment of gout. He was seen by Dr. Ariza, Orthopedics, who agreed with initiating treatment for gout. He suggested that Spironolactone could possibly be a trigger for this gout attack. The addition of Entresto was the most recent medication change, and thus, this was held. He has not had any hypertension. He was also given Tramadol for pain as well as lidoderm patch and diclofenac gel. Of note, he was initially on Dilaudid, however, he had an episode of confusion and word finding. There was concern that this could represent a TIA or CVA. She had a head CT on 06/04/18 that showed no evidence of a hemorrhage, mass and nothing to suggest a new region of infarction with multiple old infarcts demonstrated on the examination. The dilaudid was discontinued. He had no further episodes of confusion. He did have positive blood cultures in 1/4 bottles, Coag negative staph- this is likely a contaminant. Vancomycin discontinued, WBC remained stable and within normal limits, he has remained afebrile. He has worked with PT and OT and progressed well. PT recommended: Home with continued support from family. Recommend resuming home health PT for continued strengthening and cardiovascular retraining, upon discharge home. He is discharged home on Colchicine therapy with follow up within one week with his PCP. Will continue to hold Entresto, he will discuss this with his PCP upon follow up. Consideration could be made for addition of Allopurinol. He continues to have pain in his left wrist, however, he reports significant improvement since the time of admission. Home Meds and New Rx's Prescriptions: New tramadol 50 mg Tablet 50 mg PO Q6H PRN PRNQty: 12 RF: 0 lidocaine [Lidoderm] 5 % Adhesive Patch,Medicated 1 patch topical QPM Qty: 7 RF: 0 colchicine [Colcrys] 0.6 mg Tablet 0.6 mg PO DAILY Qty: 30 RF: 0 diclofenac sodium [Voltaren] 1 % Gel topical 0600,1200,1800 Qty: 100 RF: 0 Continued digoxin 125 mcg tablet 0.125 mg PO DAILY RF: 0 Ventolin HFA 90 mcg/actuation HFA aerosol inhaler 1 puff IH Q4H PRN (Reason: shortness of breath or wheezing) Qty: 6.7 RF: 2 metoprolol tartrate 50 mg tablet 50 mg PO BID Qty: 180 RF: 3 warfarin 2.5 mg tablet 2.5 - 5 mg PO DAILY Qty: 90 RF: 3 Inhaler, Assist Devices [Aerochamber Mini] 1 EACH spacer 1 ea Miscellaneous PRN Qty: 1 RF: 0 ropinirole 0.25 mg tablet 0.25 mg PO HS RF: 0 ranitidine HCl 150 mg capsule 150 mg PO DAILY RF: 0 albuterol sulfate 1.25 mg/3 mL solution for nebulization 1.25 mg IH QID PRNRF: 0 diazepam 2 mg tablet 2 mg PO HS PRN (Reason: anxiety) Qty: 30 RF: 1 simvastatin 20 mg tablet 20 mg PO QPM Qty: 90 RF: 3 morphine [MS Contin] 15 mg tablet extended release 15 mg PO HS MDD 1 tab PRN (Reason: leg pain) Qty: 30 RF: 0 magnesium L-lactate 84 mg tablet extended release 84 mg PO BID Qty: 180 RF: 3 torsemide 20 mg tablet 60 mg PO DAILY Qty: 120 RF: 5 spironolactone 25 mg tablet 25 mg PO DAILY RF: 0 Spiriva Respimat 2.5 mcg/actuation Mist 1 puff Inhalation DAILY AM RF: 0 acetaminophen [Tylenol Extra Strength] 500 mg Tablet 1,000 mg PO BID RF: 0 Discontinued Entresto 24-26 mg Tablet 1 tab PO BID RF: 0 Discharge Instructions Instructions: Wrist Injury (DC), Weakness (GEN) Additional Instructions: Stop taking Entresto. Continue to take Colchicine daily. Your PCP may add another medicine for gout. Take Tramadol as needed for pain. Diclofenac gel and lidoderm patch for pain. Resume home PT. Home health pt to obtain INR on 06/06/18, results to PCP. Take care! Stand Alone Forms: Nursing Discharge Form Referrals: Bennie Adams [Primary Care Provider] - 06/11/18 9:40 am Activity:: Activity as Tolerated Equipment/Supplies:: No Equipment Needed Diet:: As Tolerated Discharge Orders Discharge Orders: Discharge Order (Routine); Ordered 06/05/18 Ordered By: Cortney Shahid Other Ambulatory Orders: Prothrombin Time (Routine) Timeframe: 1 Day Location: Determined by Patient Ordered By: Cortney Shahid Exam Narrative Exam Narrative: General: Elderly male, sitting on the edge of the bed. Awake and alert. Pleasant and cooperative. Answering questions appropriately. HEENT: Normocephalic, atraumatic, pupils equal round, mucous membranes moist. Heart: Irregularly irregular rhythm, + RICH Lungs: Respirations even and unlabored, lung sounds clear to auscultation throughout. GI: abdomen is soft, nontender, nondistended with normoactive bowel sounds throughout. Extremities: Right wrist with trace edema, tender on palpation. +1 BLE edema (chronic) DS: Data Vitals/I&O Vitals and I&O: Vital Signs Temperature 36.4 C L 06/05/18 11:52 Temperature Source Tympanic 06/05/18 11:52 Pulse 70 06/05/18 11:52 Pulse Rhythm Irregular 06/05/18 08:48 Pulse 80 05/30/18 18:46 Respiratory Rate 18 06/05/18 11:52 Respiratory Effort Non-Labored 06/05/18 08:48 Respiratory Depth Normal 06/05/18 08:48 Respiratory Pattern Normal 06/05/18 08:48 Blood Pressure 106/71 06/05/18 11:52 Blood Pressure Mean 62 05/30/18 18:45 Blood Pressure Position Sitting 05/30/18 11:54 Pulse Oximetry 97 06/05/18 11:52 Oxygen Delivery Method Room Air 06/05/18 11:52 Oxygen Flow Rate 0 06/05/18 11:52 Pain Level 8 06/05/18 08:41 Comment 06/02/18 07:17 Intake & Output 06/04/18 06/05/18 06/05/18 23:59 11:59 23:59 Intake Total 500 / 1120 480 / 480 Output Total 1100 / 2350 419 / 419 Balance -600 / -1230 61 / 61 Intake: IV 260 / 520 Oral 240 / 600 480 / 480 Output: Urine 1000 / 2250 325 / 325 Post Void Residual 100 / 100 94 / 94 Other: Urine Color Pale Yellow Urine Appearance Clear Urine Odor Normal Comment Patient reported recent void, unsure of amount. Largest can 50 ml Voiding Methods Toilet Completed studies during hospitalization [Text1]: 05/30/2018: RIGHT WRIST: Three views. Comparison is made with 03/22/18. No acute fracture or dislocation is seen. There are mild degenerative changes seen at the radial carpal joint and the first carpal metacarpal joint. The bones appear mildly demineralized. There are vascular calcifications present. IMPRESSION: No acute abnormality. Osteoarthritis of the right wrist. RIGHT HAND: Three views. No acute or healing fracture or dislocation is identified. There are degenerative changes of the wrist, particularly at the distal interphalangeal joints of the right index and middle fingers. The metacarpal phalangeal joints appear well maintained. The bones appear mildly osteopenic. The soft tissues are unremarkable. IMPRESSION: No acute abnormality. Moderate osteoarthritis of the right hand. 06/04/2018: CRANIAL CT: The study is compared with a recent examination of 05/30/2018 and there has been no significant interval change with note again made of cerebral atrophy and regions of diminished attenuation in the frontoparietal white matter consistent with small vessel disease. 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 There is no evidence of an intra/extra-axial hemorrhage or mass. The ventricles are intact. SUMMARY: No interval change when compared with the previous study of 05/30/2018. There is no evidence of a hemorrhage, mass and nothing to suggest a new region of infarction with multiple old infarcts demonstrated on the examination. Please see the body of the report. Labs on day of discharge: Labs from last 24 hours 06/05/18 06/05/18 06/05/18 07:10 07:10 07:10 WBC 7.01 RBC 3.57 L Hgb 12.6 L Hct 37.0 L MCV 103.6 H MCH 35.3 H MCHC 34.1 RDW 12.3 Plt Count 196 MPV 10.0 Immature Gran % 0.3 Neutrophils % 54.9 Lymphocytes % 24.4 Monocytes % 13.7 Eosinophils % 6.0 Basophils % 0.7 Absolute Neutrophils 3.85 Absolute Lymphocytes 1.71 Absolute Monocytes 0.96 H Absolute Eosinophils 0.42 Absolute Basophils 0.05 PT 26.4 H INR 2.6 H D Sodium 139 Potassium 4.0 Chloride 103 Carbon Dioxide 29.0 Anion Gap 7.0 BUN 19 H Creatinine 1.22 Estimated GFR/1.73 m2 57.75 Glucose 112 H Calcium 8.9 Magnesium 1.8 Troponin I 06/04/18 06:48 WBC RBC Hgb Hct MCV MCH MCHC RDW Plt Count MPV Immature Gran % Neutrophils % Lymphocytes % Monocytes % Eosinophils % Basophils % Absolute Neutrophils Absolute Lymphocytes Absolute Monocytes Absolute Eosinophils Absolute Basophils PT INR Sodium 140 Potassium 4.1 Chloride 105 Carbon Dioxide 26.8 Anion Gap 8.2 BUN 17 D Creatinine 1.01 Estimated GFR/1.73 m2 >= 60.00 Glucose 111 H Calcium 8.7 Magnesium 1.9 Troponin I < 0.02 Preliminary micro results at discharge 05/31/18 19:15 Blood Culture - Preliminary Blood Staphylococcus Epidermidis 06/02/18 00:35 Blood Culture - Preliminary Blood NO GROWTH 72 HOURS 06/02/18 00:25 Blood Culture - Preliminary Blood NO GROWTH 72 HOURS 05/31/18 19:25 Blood Culture - Preliminary Blood NO GROWTH 96 HOURS [facility] Medical History Cardiomyopathy (Acute) TIA (transient ischemic attack) (Acute) Atrial fibrillation (Chronic) COPD (chronic obstructive pulmonary disease) (Chronic) CVA (cerebral vascular accident) (Chronic) Diabetes (Chronic) GERD (gastroesophageal reflux disease) (Chronic) HTN (hypertension) (Chronic) Surgical History AICD (automatic cardioverter/defibrillator) present (Acute) Pacemaker (Acute) Extraction of cataract LEFT HEART CARDIAC CATH Repair of inguinal hernia Social History Smoking/Tobacco Use Status: Never alcohol intake: never substance use type: does not use
--- NOTE | 2018-06-05 19:16 | PDOC.CMDIS ---
LACE Index Scoring Tool - Questions: Length of Stay (in days): 4 - 6 Acuity (Admit via E.D.?): Yes Comorbidities: Diabetes w/o Complication, Congestive Heart Failure, Chronic Pulmonary Disease E.D. Visits: 8 - Answers: Total Score: 16 Risk of Readmission: High Risk Care Management Discharge Reason for Hospitalization: Weakness, Wrist pain Discharge Plan: Srini will return home when ready per MD. He will have a new referral provided by this global technical writer for [facility] and [facility] counseling through the [facility]: CM faxed order and provided [facility] resources. CM will faxed referral to [facility] as well. Srini will transport via private vehicle with his daughter, Juju. Patient/Family Education Needs: Review of community based supports, resource follow up-referrals. Discuss self care needs upon discharge. Services Needed at Discharge: Home Delivered Meals, Home Health Care Services (Referral for [facility]: Options Counselor for [facility] support, CM attachment, [facility] )
--- NOTE | 2018-06-05 19:22 | CMDISCH_ITS ---
LACE Index Scoring Tool - Questions: Length of Stay (in days): 4 - 6 Acuity (Admit via E.D.?): Yes Comorbidities: Diabetes w/o Complication, Congestive Heart Failure, Chronic Pulmonary Disease E.D. Visits: 8 - Answers: Total Score: 16 Risk of Readmission: High Risk Care Management Discharge Reason for Hospitalization: Weakness, Wrist pain Discharge Plan: Srini will return home when ready per MD. He will have a new referral provided by this card writer hand for [facility] and [facility] through the [facility]: CM faxed order and provided [facility] resources. CM will faxed referral to [facility] as well. Srini will transport via private vehicle with his daughter, Juju. Patient/Family Education Needs: Review of community based supports, resource follow up-referrals. Discuss self care needs upon discharge. Services Needed at Discharge: Home Delivered Meals, Home Health Care Services (Referral for [facility]: [facility] for [facility] support, CM attachment, [facility] )
--- NOTE | 2018-06-09 09:54 | HHF2F_ITS ---
Addendum entered and electronically signed by Cortney Shahid NP 06/09/18 13:04: DATE OF FACE TO FACE ENCOUNTER WITH PATIENT: 06/05/18. The patient is unable to leave home without assistance. Original Note: 1. Encounter Date and Reason I certify that MIAH SCHWARTZ was seen by Cortney Shahid on 06/09/18 and that I had a [id number] encounter with this patient that meets the physician face to face encounter requirements. 2. Clinical Findings Supporting Skilled Need and Homebound Status I certify that home health services are medically necessary, include either intermittent long-term and/or physical/speech therapy, and that this patient is homebound in that absences from the home require considerable and taxing effort and are infrequent or of short duration, or are attributable to the need to receive medical care. [X] (a) Attached documentation from encounter provides clinical findings supporting skilled need and homebound status (including what assistance patient requires to leave the home). The encounter with the patient was in whole, or in part, for the following medical condition, which is the primary reason for home health care: WEAKNESS,WRIST PAIN, GOUT Retirement: Physical Therapy: Needed for continued strengthening and cardiovascular retraining. Draw INR per PCP. Speech Therapy: Homebound: 3. Certification and Authentication I certify that I composed the above information based on my clinical judgement relating to this patient's medical condition and, if applicable, clinical findings communicated to me by the NPP or inpatient physician who performed the Home Health Referral. All further orders will be obtained through Dr. Adams (Community Based Physician - PCP)
--- NOTE | 2018-06-09 10:52 | PT.INDS ---
Date of service: 06/09/18 Time of Service: 10:52 PT Notes Date: 06/09/18 Referring Doctor: Dr. Vanna Gar PT Orders: PT CONSULT: eval and treat Precautions: fall, standard Treatment dates: ?06/05/18 THIS DOCUMENT SERVES A SUMMARY OF CARE. NO PT SERVICES WERE PROVIDED ON THIS DATE. Patient Profile/Admitting Diagnosis: Patient admitted 05/30/18 from ER due to progressive weakness. He was found to be hypotensive and was admitted for medical care. PMHX: CHF, GERD, type 2 diabetes, A. fib, on chronic anticoagulation, COPD, status post CVA, pacemaker/AICD placement Social History/Home Situation: Patient lives alone in [place] in single level home with no steps to enter. States that he is able to complete his own meal preparation, although his daughter, who is present at time of evaluation, does his grocery shopping for him. He uses a wheeled walker first thing in the morning, and otherwise uses a cane throughout the day. He participated in cardiac rehab last year, although admits to a sedentary lifestyle since then. He was seen for PT intervention 1-2 times per day for 6 days, with excellent gains in mobility and activity tolerance, sufficient to allow for safe transition back to independent living. Equipment Owned/DME: Handicap accessible home, FW W, cane Subjective: None obtained, as patient was discharged home 06/05/18. Objective: ROM: Right Upper Extremity: Shoulder flexion allows 120 degrees. Elbow motion is within normal limits. Patient refuses right upper extremity range of motion due to severe wrist pain. He is able to fully open the right hand and perform partial web mobile designer. Left Upper Extremity: Shoulder flexion to 150 degrees. Elbow wrist and hand motion are within normal limits. Right Lower Extremity: Hip flexion 100 degrees. Knee and ankle motion are within functional limits. Left Lower Extremity: Hip flexion 100 degrees. Knee and ankle motion are within functional limits. Strength: Right Upper Extremity: Shoulder flexion 3-/5. Resisted strength testing for the upper extremity was not performed due to severity of right wrist pain. Left Upper Extremity: Left shoulder flexion 3-/5. Biceps 4/5. Triceps 4-/5. Radial Drill Operator is weak. Right Lower Extremity: Hip flexion 4/5 bilaterally. Quads 3/5. Patient is functionally able to perform SLR for 2 repetitions prior to onset of fatigue. Ankle dorsiflexion is 5/5. Hamstrings 3+/5. Left Lower Extremity: Hip flexion 4/5 bilaterally. Quads 3/5. Patient is functionally able to perform SLR for 2 repetitions prior to onset of fatigue. Ankle dorsiflexion is 5/5. Hamstrings 3+/5.[] Bed Mobility/Transfers: Supine to sit: Independent Sit to supine: Independent Scooting in bed: Independent Sit to stand: Independent Stand to sit:Independent Bed to chair: Independent with WW Gait: Patient able to ambulate 300' with WW, supervision only, with a single seated rest period. Balance: Static Sitting: Normal Dynamic Sitting: Normal Static Standing: good Dynamic Standing: Fair Assessment: Patient is a 78 year old male referred to physical therapy services with the diagnosis of weakness. Patient participated in skilled PT intervention 1-2 times per day times 6 days, with excellent gains in safety, mobility, and activity tolerance. During this time he medically stabilized to the point where he was appropriate for discharge. He was also able to meet all of his rehab goals, allowing for safe transition back to independent living. He will benefit from continued PT intervention via home health services to assess for safety within his home, and allow for continued progress towards community-based goals. Goals: Goals X1 week 1. Supine-Sit independent (MET) 2. Sit-Supine independent(MET) 3. Sit-Stand independent(MET) 4. Stand-Sit independent(MET) 5. Bed-Chair supervision with FWW(MET) 6. Chair-Bed supervision with FWW(MET) 7. Gait supervision with FWW x 50'(MET) Plan of Care/Treatment Plan: D/C from PT in acute care setting. DISCHARGE RECOMMENDATIONS: Home with continued support from family. Recommend resuming home health PT for continued strengthening and cardiovascular retraining TREATMENT CODE/TIME: No PT services provided on this date. Agnieszka Wahl, PT, DPT
--- NOTE | 2018-06-09 10:58 | INDS_ITS ---
Date of service: 06/09/18 Time of Service: 10:52 PT Notes Date: 06/09/18 Referring Doctor: Dr. Vanna Gar PT Orders: PT CONSULT: eval and treat Precautions: fall, standard Treatment dates: ?06/05/18 THIS DOCUMENT SERVES A SUMMARY OF CARE. NO PT SERVICES WERE PROVIDED ON THIS DATE. Patient Profile/Admitting Diagnosis: Patient admitted 05/30/18 from ER due to progressive weakness. He was found to be hypotensive and was admitted for medical care. PMHX: CHF, GERD, type 2 diabetes, A. fib, on chronic anticoagulation, COPD, status post CVA, pacemaker/AICD placement Social History/Home Situation: Patient lives alone in [place] in single level home with no steps to enter. States that he is able to complete his own meal preparation, although his daughter, who is present at time of evaluation, does his grocery shopping for him. He uses a wheeled walker first thing in the morning, and otherwise uses a cane throughout the day. He participated in cardiac rehab last year, although admits to a sedentary lifestyle since then. He was seen for PT intervention 1-2 times per day for 6 days, with excellent gains in mobility and activity tolerance, sufficient to allow for safe transition back to independent living. Equipment Owned/DME: Handicap accessible home, FW W, cane Subjective: None obtained, as patient was discharged home 06/05/18. Objective: ROM: Right Upper Extremity: Shoulder flexion allows 120 degrees. Elbow motion is within normal limits. Patient refuses right upper extremity range of motion due to severe wrist pain. He is able to fully open the right hand and perform partial floorperson. Left Upper Extremity: Shoulder flexion to 150 degrees. Elbow wrist and hand mo tion are within normal limits. Right Lower Extremity: Hip flexion 100 degrees. Knee and ankle motion are within functional limits. Left Lower Extremity: Hip flexion 100 degrees. Knee and ankle motion are within functional limits. Strength: Right Upper Extremity: Shoulder flexion 3-/5. Resisted strength testing for the upper extremity was not performed due to severity of right wrist pain. Left Upper Extremity: Left shoulder flexion 3-/5. Biceps 4/5. Triceps 4-/5. Lumber Carrier Operator is weak. Right Lower Extremity: Hip flexion 4/5 bilaterally. Quads 3/5. Patient is functionally able to perform SLR for 2 repetitions prior to onset of fatigue. Ankle dorsiflexion is 5/5. Hamstrings 3+/5. Left Lower Extremity: Hip flexion 4/5 bilaterally. Quads 3/5. Patient is functionally able to perform SLR for 2 repetitions prior to onset of fatigue. Ankle dorsiflexion is 5/5. Hamstrings 3+/5.[] Bed Mobility/Transfers: Supine to sit: Independent Sit to supine: Independent Scooting in bed: Independent Sit to stand: Independent Stand to sit:Independent Bed to chair: Independent with WW Gait: Patient able to ambulate 300' with WW, supervision only, with a single seated rest period. Balance: Static Sitting: Normal Dynamic Sitting: Normal Static Standing: good Dynamic Standing: Fair Assessment: Patient is a 78 year old male referred to physical therapy services with the diagnosis of weakness. Patient participated in skilled PT intervention 1-2 times per day times 6 days, with excellent gains in safety, mobility, and activity tolerance. During this time he medically stabilized to the point where he was appropriate for discharge. He was also able to meet all of his rehab goals, allowing for safe transition back to independent living. He will benefit from continued PT intervention via home health services to assess for safety within his home, and allow for continued progress towards community- based goals. Goals: Goals X1 week 1. Supine-Sit independent (MET) 2. Sit-Supine independent(MET) 3. Sit-Stand independent(MET) 4. Stand-Sit independent(MET) 5. Bed-Chair supervision with FWW(MET) 6. Chair-Bed supervision with FWW(MET) 7. Gait supervision with FWW x 50'(MET) Plan of Care/Treatment Plan: D/C from PT in acute care setting. DISCHARGE RECOMMENDATIONS: Home with continued support from family. Recommend resuming home health PT for continued strengthening and cardiovascular retraining TREATMENT CODE/TIME: No PT services provided on this date. Agnieszka Wahl, PT, DPT
--- NOTE | 2018-06-09 11:12 | PDOC.CMPRO ---
Care Management Progress Note GUERDA recieved call from Norma at [facility]; she reported receiving a call from the family questioning when services were to begin. GUERDA spoke with Cortney; HI as well as Agnieszka; LOU who reported Srini would benefit from home PT; Cortney agreed to complete F2F; GUERDA faxed new orders to [facility].
== END 2018-06-05 16:10 | disposition home or self-care (01) | DRG 945 ==
LOC: ER 18:29 → MS 19:26
PROVIDERS: Internal Medicine; Admitting Provider General Practice; Emergency Provider Physician Assistant; PCP Family Medicine; Visit Provider Internal Medicine
DX: R53.1 Weakness (principal); I42.9 Cardiomyopathy, unspecified; R78.81 Bacteremia; T46.5X5A Adverse effect of other antihypertensive drugs, initial encounter; M25.531 Pain in right wrist; G89.29 Other chronic pain; R41.82 Altered mental status, unspecified; M10.9 Gout, unspecified; I95.9 Hypotension, unspecified; R79.1 Abnormal coagulation profile; T45.515A Adverse effect of anticoagulants, initial encounter; Z79.01 Long term (current) use of anticoagulants; E87.5 Hyperkalemia; Z95.810 Presence of automatic (implantable) cardiac defibrillator; E11.9 Type 2 diabetes mellitus without complications; I48.0 Paroxysmal atrial fibrillation; I50.9 Heart failure, unspecified; I11.0 Hypertensive heart disease with heart failure; Z86.73 Personal history of transient ischemic attack (TIA), and cerebral infarction without residual deficits
CPT/HCPCS: 36410; 36415; 80048; 80053; 85027; 85652; 87040; 87077; 93005; 94640; 96361; 96374; 97110; 97162; 97166; 97530; 97535; 99221; 99222; 99231; 99232; 99233; 99239; 99285; 70450; 71046; 73110; 73130; 80162; 81003; 83605; 83735; 83880; 84132; 84484; 84550; 85025; 85610; 86140; 87186; 93010; J1885; J2270; J3475; J3490

== ENCOUNTER 2018-06-15 00:15 | Outpatient (CLI) | payer MEDICARE, MEDICAID, SELFPAY ==
[2018-06-15 10:57] LABS: INR 2.2 (0.9-1.1); Prothrombin Time 21.8 sec (9.3-11.0)
[2018-06-15 12:08] LABS: Uric Acid 12.4 mg/dL (3.5-7.2)
== END 2018-06-15 00:35 ==
PROVIDERS: PCP Family Medicine; Visit Provider Family Medicine
DX: I48.0 Paroxysmal atrial fibrillation (principal); Z79.01 Long term (current) use of anticoagulants; M10.9 Gout, unspecified
CPT/HCPCS: 36415; 84550; 85610

== ENCOUNTER → 2018-07-01 14:18 | Outpatient (BNVA) | payer MEDICARE, MEDICAID, SELFPAY | PROVIDERS: PCP Family Medicine; Visit Provider Nurse Practitioner Family | DX: I48.0 Paroxysmal atrial fibrillation (principal); I10 Essential (primary) hypertension; I42.9 Cardiomyopathy, unspecified; I25.10 Atherosclerotic heart disease of native coronary artery without angina pectoris; M10.9 Gout, unspecified; J44.9 Chronic obstructive pulmonary disease, unspecified; Z45.018 Encounter for adjustment and management of other part of cardiac pacemaker | CPT/HCPCS: 93289; 99214 ==

== ENCOUNTER 2018-07-11 01:39 | Outpatient (CLI) | payer MEDICARE, MEDICAID, SELFPAY ==
[2018-07-11 13:55] LABS: Anion Gap 8.7 mmol/L (3-11); BUN 21 mg/dL (7-18); CO2 33.3 mmol/L (21.0-32.0); CREATININE 1.25 mg/dL (0.70-1.30); Calcium 8.5 mg/dL (8.5-10.1); Chloride 100 mmol/L (98-107); Estimated GFR 56.16 (mL/min/1.73m2); Glucose 159 mg/dL (70-100); NT-proBNP 3671 pg/mL; Potassium 3.8 mmol/L (3.5-5.1); Sodium 142 mmol/L (136-145); Uric Acid 7.2 mg/dL (3.5-7.2)
== END 2018-07-11 01:59 ==
PROVIDERS: PCP Family Medicine; Visit Provider Nurse Practitioner Family
DX: R06.02 Shortness of breath (principal); M10.9 Gout, unspecified
CPT/HCPCS: 36415; 80048; 83880; 84550

== ENCOUNTER → 2018-07-15 14:06 | Outpatient (BNVA) | payer MEDICARE, MEDICAID, SELFPAY | PROVIDERS: PCP Family Medicine; Visit Provider Nurse Practitioner Family | DX: I48.0 Paroxysmal atrial fibrillation (principal); M10.9 Gout, unspecified; I42.9 Cardiomyopathy, unspecified; I25.10 Atherosclerotic heart disease of native coronary artery without angina pectoris; I10 Essential (primary) hypertension; E11.9 Type 2 diabetes mellitus without complications | CPT/HCPCS: 99212; 99214 ==

== ENCOUNTER 2018-07-18 01:09 | Outpatient (CLI) | payer MEDICARE, MEDICAID, SELFPAY ==
[2018-07-18 13:24] LABS: INR 2.3 (0.9-1.1); Prothrombin Time 23.6 sec (9.3-11.0)
== END 2018-07-18 01:29 ==
LOC: LBO 01:09 → LOS 11:15
PROVIDERS: PCP Family Medicine; Visit Provider Family Medicine
DX: I48.91 Unspecified atrial fibrillation (principal); Z79.01 Long term (current) use of anticoagulants
CPT/HCPCS: 36415; 85610

== ENCOUNTER 2018-07-25 02:25 | Outpatient (CLI) | payer MEDICARE, MEDICAID, SELFPAY ==
[2018-07-25 13:23] LABS: Anion Gap 8.6 mmol/L (3-11); BUN 20 mg/dL (7-18); CO2 33.4 mmol/L (21.0-32.0); CREATININE 1.21 mg/dL (0.70-1.30); Calcium 9.1 mg/dL (8.5-10.1); Chloride 92 mmol/L (98-107); Glucose 161 mg/dL (70-100); NT-proBNP 1659 pg/mL; Potassium 3.4 mmol/L (3.5-5.1); Sodium 134 mmol/L (136-145); Uric Acid 8.8 mg/dL (3.5-7.2)
[2018-07-25 13:40] LABS: INR 2.6 (0.9-1.1); Prothrombin Time 26.1 sec (9.3-11.0)
== END 2018-07-25 02:45 ==
PROVIDERS: Nurse Practitioner; Nurse Practitioner Family; PCP Family Medicine; Visit Provider Family Medicine
DX: I48.0 Paroxysmal atrial fibrillation (principal); I42.9 Cardiomyopathy, unspecified; M10.9 Gout, unspecified
CPT/HCPCS: 36415; 80048; 83880; 84550; 85610

== ENCOUNTER 2018-08-08 02:10 | Outpatient (CLI) | payer MEDICARE, MEDICAID, SELFPAY ==
[2018-08-08 12:51] LABS: HCT 40.8 % (40.0-50.0); HGB 13.8 g/dL (13.5-17.5); Mean Corp. HGB Concentration 33.8 g/dL (32.0-36.0); Mean Corpuscular Hemoglobin 34.8 pg (27.0-33.0); Mean Corpuscular Volume 102.8 fL (80-95); Mean Platelet Volume 10.5 fL (8.0-11.0); Platelet Count 173 x1000/uL (130-400); RBC 3.97 m/cumm (4.50-6.00); RBC Distribution Width 12.2 % (11.8-14.1); White Blood Cell Count 6.56 k/cumm (4.4-10.8)
[2018-08-08 13:07] LABS: Prothrombin Time 42.8 sec (9.3-11.0)
[2018-08-08 13:23] LABS: Anion Gap 10.3 mmol/L (3-11); BUN 16 mg/dL (7-18); CO2 29.7 mmol/L (21.0-32.0); CREATININE 1.26 mg/dL (0.70-1.30); Calcium 8.9 mg/dL (8.5-10.1); Chloride 99 mmol/L (98-107); Estimated GFR 55.64 (mL/min/1.73m2); Glucose 169 mg/dL (70-100); NT-proBNP 3596 pg/mL; Potassium 3.5 mmol/L (3.5-5.1); Sodium 139 mmol/L (136-145); Uric Acid 3.8 mg/dL (3.5-7.2)
[2018-08-08 13:27] LABS: INR 4.2 (0.9-1.1)
== END 2018-08-08 02:30 ==
PROVIDERS: PCP Family Medicine; Visit Provider Family Medicine
DX: I50.9 Heart failure, unspecified (principal); Z79.01 Long term (current) use of anticoagulants; I48.0 Paroxysmal atrial fibrillation
CPT/HCPCS: 36415; 80048; 85027; 83880; 84550; 85610

== ENCOUNTER 2018-08-11 10:01 | Outpatient (CLI) | payer MEDICARE, MEDICAID, SELFPAY ==
[2018-08-11 13:15] LABS: Prothrombin Time 53.2 sec (9.3-11.0)
[2018-08-11 13:33] LABS: INR 5.2 (0.9-1.1)
== END 2018-08-11 10:21 ==
PROVIDERS: PCP Family Medicine; Visit Provider Family Medicine
DX: I48.0 Paroxysmal atrial fibrillation (principal); Z79.01 Long term (current) use of anticoagulants
CPT/HCPCS: 36415; 85610

== ENCOUNTER → 2018-08-12 14:19 | Outpatient (BNVA) | payer MEDICARE, MEDICAID, SELFPAY | PROVIDERS: PCP Family Medicine; Visit Provider Nurse Practitioner Family | DX: I48.0 Paroxysmal atrial fibrillation (principal); M10.9 Gout, unspecified; I10 Essential (primary) hypertension; I42.9 Cardiomyopathy, unspecified; I25.10 Atherosclerotic heart disease of native coronary artery without angina pectoris; E11.9 Type 2 diabetes mellitus without complications | CPT/HCPCS: 99214 ==

== ENCOUNTER 2018-08-14 07:00 | Outpatient (CLI) | payer MEDICARE, MEDICAID, SELFPAY ==
[2018-08-14 13:34] LABS: INR 2.6 (0.9-1.1); Prothrombin Time 26.2 sec (9.3-11.0)
== END 2018-08-14 07:20 ==
PROVIDERS: PCP Family Medicine; Visit Provider Family Medicine
DX: I48.0 Paroxysmal atrial fibrillation (principal); Z79.01 Long term (current) use of anticoagulants
CPT/HCPCS: 36415; 85610

== ENCOUNTER 2018-08-18 02:19 | Outpatient (CLI) | payer MEDICARE, MEDICAID, SELFPAY ==
[2018-08-18 12:49] LABS: INR 1.3 (0.9-1.1); Prothrombin Time 13.4 sec (9.3-11.0)
[2018-08-18 13:02] LABS: Anion Gap 10.7 mmol/L (3-11); BUN 18 mg/dL (7-18); CO2 30.3 mmol/L (21.0-32.0); CREATININE 1.27 mg/dL (0.70-1.30); Calcium 8.7 mg/dL (8.5-10.1); Chloride 95 mmol/L (98-107); Estimated GFR 55.14 (mL/min/1.73m2); Glucose 177 mg/dL (70-100); NT-proBNP 2926 pg/mL; Sodium 136 mmol/L (136-145); Uric Acid 4.9 mg/dL (3.5-7.2)
== END 2018-08-18 02:39 ==
PROVIDERS: Nurse Practitioner Family; PCP Family Medicine; Visit Provider Family Medicine
DX: M10.9 Gout, unspecified (principal); I50.30 Unspecified diastolic (congestive) heart failure; I42.9 Cardiomyopathy, unspecified; Z79.01 Long term (current) use of anticoagulants; I48.0 Paroxysmal atrial fibrillation
CPT/HCPCS: 36415; 80048; 83880; 84550; 85610

== ENCOUNTER 2018-08-28 01:35 | Outpatient (CLI) | payer MEDICARE, MEDICAID, SELFPAY ==
[2018-08-28 12:45] LABS: Uric Acid 5.8 mg/dL (3.5-7.2)
[2018-08-28 12:57] LABS: INR 1.3 (0.9-1.1); Prothrombin Time 13.2 sec (9.3-11.0)
== END 2018-08-28 01:55 ==
PROVIDERS: PCP Family Medicine; Visit Provider Family Medicine
DX: I48.0 Paroxysmal atrial fibrillation (principal); Z79.01 Long term (current) use of anticoagulants; M10.9 Gout, unspecified
CPT/HCPCS: 36415; 84550; 85610

== ENCOUNTER 2018-09-04 07:00 | Outpatient (CLI) | payer MEDICARE, MEDICAID, SELFPAY ==
[2018-09-04 13:40] LABS: INR 1.5 (0.9-1.1); Prothrombin Time 14.7 sec (9.3-11.0)
== END 2018-09-04 07:20 ==
PROVIDERS: PCP Family Medicine; Visit Provider Family Medicine
DX: I48.0 Paroxysmal atrial fibrillation (principal); Z79.01 Long term (current) use of anticoagulants
CPT/HCPCS: 36415; 85610

== ENCOUNTER 2018-09-11 08:59 | Outpatient (CLI) | payer MEDICARE, MEDICAID, SELFPAY ==
[2018-09-11 13:18] LABS: Hemoglobin A1C 7.4 % (4.5-6.2)
[2018-09-11 13:34] LABS: INR 2.1 (0.9-1.1); Prothrombin Time 21.4 sec (9.3-11.0)
== END 2018-09-11 09:19 ==
PROVIDERS: PCP Family Medicine; Visit Provider Family Medicine
DX: R73.9 Hyperglycemia, unspecified (principal); I48.0 Paroxysmal atrial fibrillation; Z79.01 Long term (current) use of anticoagulants
CPT/HCPCS: 36415; 83036; 85610

== ENCOUNTER → 2018-09-16 15:08 | Outpatient (BNVA) | payer MEDICARE, MEDICAID, SELFPAY | PROVIDERS: PCP Family Medicine; Visit Provider Nurse Practitioner Family | DX: M10.9 Gout, unspecified (principal); I48.0 Paroxysmal atrial fibrillation; I42.9 Cardiomyopathy, unspecified; I10 Essential (primary) hypertension; Z79.01 Long term (current) use of anticoagulants; Z45.018 Encounter for adjustment and management of other part of cardiac pacemaker; E11.9 Type 2 diabetes mellitus without complications | CPT/HCPCS: 93284; 99214 ==

== ENCOUNTER 2018-09-25 08:42 | Outpatient (CLI) | payer MEDICARE, MEDICAID, SELFPAY ==
[2018-09-25 12:49] LABS: INR 2.4 (0.9-1.1); Prothrombin Time 24.5 sec (9.3-11.0)
== END 2018-09-25 09:02 ==
PROVIDERS: PCP Family Medicine; Visit Provider Family Medicine
DX: I48.91 Unspecified atrial fibrillation (principal); Z79.01 Long term (current) use of anticoagulants
CPT/HCPCS: 36415; 85610

== ENCOUNTER 2018-10-14 02:01 | Outpatient (CLI) | payer MEDICARE, MEDICAID, SELFPAY ==
[2018-10-14 12:50] LABS: INR 2.4 (0.9-1.1); Prothrombin Time 24.1 sec (9.3-11.0)
== END 2018-10-14 02:21 ==
PROVIDERS: PCP Family Medicine; Visit Provider Family Medicine
DX: I48.0 Paroxysmal atrial fibrillation (principal); Z79.01 Long term (current) use of anticoagulants
CPT/HCPCS: 36415; 85610

== ENCOUNTER 2018-10-28 02:01 | Outpatient (CLI) | payer MEDICARE, MEDICAID, SELFPAY ==
[2018-10-28 13:20] LABS: INR 2.9 (0.9-1.1); Prothrombin Time 29.1 sec (9.3-11.0)
== END 2018-10-28 02:21 ==
PROVIDERS: PCP Family Medicine; Visit Provider Family Medicine
DX: I48.91 Unspecified atrial fibrillation (principal); Z79.01 Long term (current) use of anticoagulants
CPT/HCPCS: 36415; 85610

== ENCOUNTER 2018-11-26 09:15 | Outpatient (CLI) | payer MEDICARE, MEDICAID, SELFPAY ==
[2018-11-26 12:43] LABS: INR 2.5 (0.9-1.1); Prothrombin Time 25.2 sec (9.3-11.0)
[2018-11-26 13:14] LABS: Anion Gap 12.5 mmol/L (3-11); BUN 17 mg/dL (7-18); CO2 27.5 mmol/L (21.0-32.0); CREATININE 0.97 mg/dL (0.70-1.30); Calcium 8.3 mg/dL (8.5-10.1); Chloride 99 mmol/L (98-107); Glucose 155 mg/dL (70-100); NT-proBNP 2898 pg/mL; Potassium 3.2 mmol/L (3.5-5.1); Sodium 139 mmol/L (136-145); Vitamin B12 384 pg/mL (193-986)
== END 2018-11-26 09:35 ==
PROVIDERS: PCP Family Medicine; Visit Provider Family Medicine
DX: G62.9 Polyneuropathy, unspecified (principal); I42.9 Cardiomyopathy, unspecified; I48.0 Paroxysmal atrial fibrillation; Z79.01 Long term (current) use of anticoagulants
CPT/HCPCS: 36415; 80048; 82607; 83880; 85610

== ENCOUNTER → 2018-12-16 15:17 | Outpatient (BNVA) | payer MEDICARE, MEDICAID, SELFPAY | PROVIDERS: PCP Family Medicine; Visit Provider Nurse Practitioner Family | DX: I42.0 Dilated cardiomyopathy (principal); M10.9 Gout, unspecified; I10 Essential (primary) hypertension; Z45.02 Encounter for adjustment and management of automatic implantable cardiac defibrillator; I48.0 Paroxysmal atrial fibrillation; Z79.01 Long term (current) use of anticoagulants | CPT/HCPCS: 93289; 99214 ==

== ENCOUNTER 2018-12-17 01:28 | Outpatient (CLI) | payer MEDICARE, MEDICAID, SELFPAY ==
[2018-12-17 12:56] LABS: INR 2.8 (0.9-1.1); Prothrombin Time 28.2 sec (9.3-11.0)
[2018-12-17 13:00] LABS: Anion Gap 9.8 mmol/L (3-11); BUN 19 mg/dL (7-18); CO2 28.2 mmol/L (21.0-32.0); CREATININE 1.29 mg/dL (0.70-1.30); Calcium 8.7 mg/dL (8.5-10.1); Chloride 98 mmol/L (98-107); Estimated GFR 54.15 (mL/min/1.73m2); Glucose 235 mg/dL (70-100); Potassium 3.5 mmol/L (3.5-5.1); Sodium 136 mmol/L (136-145)
[2018-12-17 13:14] LABS: Digoxin 1.07 ng/mL (0.90-2.00)
== END 2018-12-17 01:48 ==
PROVIDERS: Nurse Practitioner Family; PCP Family Medicine; Visit Provider Family Medicine
DX: I48.0 Paroxysmal atrial fibrillation (principal); M10.9 Gout, unspecified; Z79.01 Long term (current) use of anticoagulants; Z79.899 Other long term (current) drug therapy
CPT/HCPCS: 36415; 80048; 80162; 84550; 85610

== ENCOUNTER 2019-01-22 08:52 | Outpatient (CLI) | payer MEDICARE, MEDICAID, SELFPAY ==
[2019-01-22 12:55] LABS: INR 3.1 (0.9-1.1)
[2019-01-22 13:28] LABS: Hemoglobin A1C 7.4 % (4.5-6.2)
[2019-01-22 13:41] LABS: NT-proBNP 1965 pg/mL
== END 2019-01-22 09:12 ==
PROVIDERS: PCP Family Medicine; Visit Provider Family Medicine
DX: I48.91 Unspecified atrial fibrillation (principal); Z79.01 Long term (current) use of anticoagulants; E11.9 Type 2 diabetes mellitus without complications; I50.9 Heart failure, unspecified
CPT/HCPCS: 36415; 83036; 83880; 85610

== ENCOUNTER 2019-02-06 02:35 | Outpatient (CLI) | payer MEDICARE, MEDICAID, SELFPAY ==
[2019-02-06 13:13] LABS: INR 2.9 (0.9-1.1); Prothrombin Time 28.1 sec (9.3-11.0)
== END 2019-02-06 02:55 ==
PROVIDERS: PCP Family Medicine; Visit Provider Family Medicine
DX: I48.91 Unspecified atrial fibrillation (principal); Z79.01 Long term (current) use of anticoagulants
CPT/HCPCS: 36415; 85610

== ENCOUNTER 2019-03-06 01:55 | Outpatient (CLI) | payer MEDICARE, MEDICAID, SELFPAY ==
[2019-03-06 13:43] LABS: INR 2.8 (0.9-1.1); Prothrombin Time 27.4 sec (9.3-11.0)
== END 2019-03-06 02:15 ==
PROVIDERS: PCP Family Medicine; Visit Provider Family Medicine
DX: I48.91 Unspecified atrial fibrillation (principal); Z79.01 Long term (current) use of anticoagulants
CPT/HCPCS: 36415; 85610

== ENCOUNTER 2019-04-07 01:40 | Outpatient (CLI) | payer MEDICARE, MEDICAID, SELFPAY ==
[2019-04-07 14:29] LABS: INR 3.1 (0.9-1.1); Prothrombin Time 30.2 sec (9.3-11.0)
== END 2019-04-07 02:00 ==
PROVIDERS: PCP Family Medicine; Visit Provider Family Medicine
DX: I48.91 Unspecified atrial fibrillation (principal); Z79.01 Long term (current) use of anticoagulants
CPT/HCPCS: 36415; 85610

== ENCOUNTER 2019-05-12 01:43 | Outpatient (CLI) | payer MEDICARE, MEDICAID, SELFPAY ==
[2019-05-12 13:23] LABS: Prothrombin Time 29.2 sec (9.3-11.0)
== END 2019-05-12 02:03 ==
PROVIDERS: PCP Family Medicine; Visit Provider Family Medicine
DX: I48.91 Unspecified atrial fibrillation (principal); Z79.01 Long term (current) use of anticoagulants
CPT/HCPCS: 36415; 85610

== ENCOUNTER 2019-06-23 02:15 | Outpatient (CLI) | payer MEDICARE, MEDICAID, SELFPAY ==
[2019-06-23 12:34] LABS: INR 2.8 (0.9-1.1); Prothrombin Time 27.3 sec (9.3-11.0)
== END 2019-06-23 02:35 ==
PROVIDERS: PCP Family Medicine; Visit Provider Family Medicine
DX: I48.91 Unspecified atrial fibrillation (principal); Z79.01 Long term (current) use of anticoagulants
CPT/HCPCS: 36415; 85610

== ENCOUNTER → 2019-07-07 12:16 | Outpatient (BNVA) | payer MEDICARE, MEDICAID, SELFPAY | PROVIDERS: PCP Family Medicine; Referring Provider Family Medicine; Visit Provider Psychiatry & Neurology Neurology | DX: G56.01 Carpal tunnel syndrome, right upper limb (principal); G56.21 Lesion of ulnar nerve, right upper limb; G62.9 Polyneuropathy, unspecified; G25.0 Essential tremor; G31.84 Mild cognitive impairment of uncertain or unknown etiology; G25.81 Restless legs syndrome | CPT/HCPCS: 95909; 99205; 99215 ==

== ENCOUNTER 2019-07-15 02:46 | Outpatient (CLI) | payer MEDICARE, MEDICAID, SELFPAY ==
[2019-07-15 13:24] LABS: Folate 13.2 ng/mL (8.6-20.0); TSH (W/Ref FT4) 1.01 uIU/mL (0.36-3.74); Vitamin B12 1253 pg/mL (193-986)
[2019-07-15 14:11] LABS: INR 2.8 (0.9-1.1); Prothrombin Time 27.1 sec (9.3-11.0)
[2019-07-16 12:26] LABS: Albumin 52.7 % (55.8-66.1); Comment (See Note); Monoclonal Spike 3.4 % (None Seen); Total Protein 6.9 g/dL (6.3-8.2)
[2019-07-18 16:02] LABS: Pyridoxal 5-Phosphate (PLP), P 68 mcg/L (5-50)
== END 2019-07-15 03:06 ==
PROVIDERS: Psychiatry & Neurology Neurology; PCP Family Medicine; Visit Provider Family Medicine
DX: I48.91 Unspecified atrial fibrillation (principal); Z79.01 Long term (current) use of anticoagulants; G62.9 Polyneuropathy, unspecified
CPT/HCPCS: 36415; 80186; 82607; 82746; 84165; 84207; 84443; 85610

== ENCOUNTER 2019-08-27 07:49 | Outpatient (CLI) | payer MEDICARE, MEDICAID, SELFPAY ==
[2019-08-27 17:04] LABS: Abs Immature Grans 0.04 k/cumm (0.0-0.09); Absolute Basophil Count 0.02 k/cumm (0.0-0.2); Absolute Eosinophil Count 0.06 k/cumm (0.0-0.7); Absolute Lymphocyte Count 0.99 k/cumm (1.2-3.4); Basophils % 0.2; Eosinophils % 0.5; HCT 47.2 % (40.0-50.0); HGB 15.9 g/dL (13.5-17.5); Immature Grans % 0.4 %; Mean Corp. HGB Concentration 33.7 g/dL (32.0-36.0); Mean Corpuscular Hemoglobin 35.7 pg (27.0-33.0); Mean Corpuscular Volume 105.8 fL (80-95); Mean Platelet Volume 11.5 fL (8.0-11.0); Monocytes % 6.4; Neutrophils % 83.5; Platelet Count 137 x1000/uL (130-400); RBC 4.46 m/cumm (4.50-6.00); RBC Distribution Width 14.1 % (11.8-14.1); White Blood Cell Count 11.02 k/cumm (4.4-10.8)
[2019-08-27 17:18] LABS: Absolute Monocyte Count 0.71 k/cumm (0.11-0.7)
[2019-08-27 17:28] LABS: INR 3.6 (0.9-1.1); Prothrombin Time 35.1 sec (9.3-11.0)
[2019-08-27 18:03] LABS: Hemoglobin A1C 8.4 % (3.8-5.6)
[2019-08-27 18:20] LABS: Diff Comment RBC Morph Reviewed; Macrocytosis 3+
[2019-08-27 18:54] LABS: ALT 29 U/L (16-63); AST 27 U/L (15-37); Albumin 3.7 g/dL (3.4-5.0); Alkaline Phosphatase 95 U/L (46-116); Anion Gap 9.4 mmol/L (3-11); BUN 20 mg/dL (7-18); Bilirubin, Total 0.8 mg/dL (0.2-1.0); CO2 33.6 mmol/L (21.0-32.0); Calcium 8.9 mg/dL (8.5-10.1); Chloride 96 mmol/L (98-107); Digoxin 0.87 ng/mL (0.90-2.00); Estimated GFR 45.38 (mL/min/1.73m2); Glucose 239 mg/dL (74-106); Sodium 139 mmol/L (136-145); Total Protein 7.6 g/dL (6.4-8.2)
== END 2019-08-27 08:09 ==
PROVIDERS: PCP Family Medicine; Visit Provider Family Medicine
DX: I48.0 Paroxysmal atrial fibrillation (principal); I42.0 Dilated cardiomyopathy; R29.898 Other symptoms and signs involving the musculoskeletal system; R73.9 Hyperglycemia, unspecified; D64.9 Anemia, unspecified
CPT/HCPCS: 36415; 80053; 80162; 83036; 85025; 85610

== ENCOUNTER → 2019-09-14 14:26 | Outpatient (BNVA) | payer MEDICARE, MEDICAID, SELFPAY | PROVIDERS: PCP Family Medicine; Referring Provider Nurse Practitioner Family; Visit Provider Student in an Organized Health Care Education/Training Program | DX: G56.21 Lesion of ulnar nerve, right upper limb (principal); G56.01 Carpal tunnel syndrome, right upper limb; I11.0 Hypertensive heart disease with heart failure; J44.9 Chronic obstructive pulmonary disease, unspecified; E11.9 Type 2 diabetes mellitus without complications; Z79.84 Long term (current) use of oral hypoglycemic drugs | CPT/HCPCS: 99203; 99214 ==

== ENCOUNTER 2019-10-08 03:38 | Outpatient (CLI) | payer MEDICARE, MEDICAID, SELFPAY ==
[2019-10-08 15:51] LABS: Abs Immature Grans 0.05 k/cumm (0.0-0.09); Absolute Basophil Count 0.02 k/cumm (0.0-0.2); Absolute Eosinophil Count 0.04 k/cumm (0.0-0.7); Absolute Lymphocyte Count 0.99 k/cumm (1.2-3.4); Absolute Neutrophil Count 10.01 k/cumm (1.2-6.7); Basophils % 0.2; Eosinophils % 0.3; HCT 43.1 % (40.0-50.0); HGB 14.7 g/dL (13.5-17.5); Immature Grans % 0.4 %; Lymphocytes % 8.4; Mean Corp. HGB Concentration 34.1 g/dL (32.0-36.0); Mean Corpuscular Hemoglobin 35.4 pg (27.0-33.0); Mean Corpuscular Volume 103.9 fL (80-95); Mean Platelet Volume 10.7 fL (8.0-11.0); Monocytes % 5.9; Neutrophils % 84.8; Platelet Count 158 x1000/uL (130-400); RBC 4.15 m/cumm (4.50-6.00); RBC Distribution Width 13.7 % (11.8-14.1); White Blood Cell Count 11.81 k/cumm (4.4-10.8)
[2019-10-08 16:33] LABS: Anion Gap 7.3 mmol/L (3-11); BUN 22 mg/dL (7-18); CO2 29.7 mmol/L (21.0-32.0); CREATININE 1.26 mg/dL (0.70-1.30); Calcium 8.9 mg/dL (8.5-10.1); Chloride 97 mmol/L (98-107); Estimated GFR 55.49 (mL/min/1.73m2); Glucose 302 mg/dL (74-106); Potassium 3.6 mmol/L (3.5-5.1); Sodium 134 mmol/L (136-145)
[2019-10-12 07:29] LABS: Pyridoxal 5-Phosphate (PLP), P 5 mcg/L (5-50)
== END 2019-10-08 03:58 ==
PROVIDERS: PCP Family Medicine; Visit Provider Family Medicine
DX: R68.89 Other general symptoms and signs (principal); E87.1 Hypo-osmolality and hyponatremia; D64.9 Anemia, unspecified
CPT/HCPCS: 36415; 80048; 84207; 85025

== ENCOUNTER 2019-10-13 07:32 | Day surgery (SDC) | payer MEDICARE, MEDICAID, SELFPAY ==
[2019-10-13 07:35] VITALS: BP 110/79; PULSE 82; RESP 18; TEMP 36.2; O2SAT 100
[2019-10-13 08:43] LABS: INR 1.3 (0.9-1.1)
[2019-10-13] MEDS: Cephalexin 500 MG CAP 2000 MG PO (08:56)
[2019-10-13] MEDS: Sodium Bicarbonate 50 MEQ/50 ML VIAL (09:38)
--- NOTE | 2019-10-13 09:53 | PDOC.DSDIS_ITS ---
Documented by User: VARUN Martini 10/13/19 10:01 Discharge Plan Disposition Patient Disposition: HOME Condition: Good Discharge Details Reason For Visit: CTS (R) Attending Provider: Angelito Valadez Primary Care Provider: Bennie Adams Home Meds and New Rx's Prescriptions: New acetaminophen 500 mg capsule 500 mg PO Q4H PRN (Reason: pain) Qty: 30 RF: 0 Continued naloxone 4 mg/actuation spray,non-aerosol 1 spray MARIANA ONCE PRN (Reason: opioid overdose) Qty: 2 RF: 0 simvastatin 20 mg tablet 20 mg PO QPM Qty: 90 RF: 3 warfarin 2.5 mg tablet 2.5 - 5 mg PO DAILY Qty: 90 RF: 3 albuterol sulfate [Ventolin HFA] 90 mcg/actuation HFA aerosol inhaler 1 puff IH Q4H PRN (Reason: shortness of breath or wheezing) Qty: 6.7 RF: 5 metformin 500 mg tablet 500 mg PO DAILY Qty: 30 RF: 2 (DME) Inhaler, Assist Devices [Aerochamber Mini] 1 EACH spacer 1 ea Miscellaneous PRN Qty: 1 RF: 0 digoxin 125 mcg tablet 125 mcg PO DAILY Qty: 90 RF: 3 potassium chloride 20 mEq/15 mL liquid 20 meq PO DAILY Qty: 1500 RF: 3 Incruse Ellipta 62.5 mcg/actuation blister with device 1 inh IH DAILY Qty: 90 RF: 3 pregabalin [Lyrica] 50 mg capsule 50 mg PO BID Qty: 60 RF: 5 morphine 15 mg tablet 7.5 mg PO HS MDD 7.5 mg PRN (Reason: pain) Qty: 15 RF: 0 prednisone 5 mg tablet 5 mg PO DAILY Qty: 30 RF: 2 diazepam 2 mg tablet 2 mg PO HS PRN (Reason: anxiety) Qty: 30 RF: 2 duloxetine 20 mg capsule, delayed rel sprinkle 20 mg PO DAILY Qty: 30 RF: 5 torsemide 20 mg tablet 60 - 80 mg PO DAILY Qty: 315 RF: 3 allopurinol 300 mg tablet 300 mg PO DAILY Qty: 90 RF: 3 ropinirole 0.25 mg tablet 0.25 - 1 mg PO HS Qty: 60 RF: 2 metoprolol tartrate 50 mg tablet 25 mg PO BID RF: 0 Discontinued acetaminophen [Tylenol Extra Strength] 500 mg Tablet 1,000 mg PO BID RF: 0 Discharge Instructions Additional Instructions: Open Carpal Tunnel Release Discharge Instructions Activity: You should keep the hand/wrist elevated as much as possible for the first few days. You may use the other fingers as tolerated but avoid trying to do too much too soon. You may perform light activities with the splint in place. Dressing/Cast: Your dressing can stay in place until follow-up. Do NOT get it wet. You may loosen the PARMINDER wrap if you feel it is too tight and then rewrap more loosely. If it unravels or you would like to change it, you can do so after 3 days and keep covered with a clean dressing. Medications: - You should take Tylenol for baseline pain control. - You may apply ice over the wrist, just double bag the dressing so it doesn't get wet. Follow-up: 10-14 days Referrals: Angelito Valadez MD [ [facility] STAFF PHYSICIAN] - Equipment/Supplies: Sling Activity:: Elevate Remove Dressings/Wound Care:: Do Not Remove Shower/Bathe:: Cover Diet:: As Tolerated Discharge Orders Discharge Orders: Discharge Order (Routine); Ordered 10/13/19 Ordered By: Norman Medel DS: Diagnosis Discharge Diagnosis (1) Carpal tunnel syndrome of right wrist: Status: Acute Documented by User: Angelito Valadez MD 10/13/19 10:24 Discharge Plan Disposition Patient Disposition: HOME Condition: Good Discharge Details Reason For Visit: CTS (R) Attending Provider: Angelito Valadez Primary Care Provider: Bennie Adams Home Meds and New Rx's Prescriptions: New acetaminophen 500 mg capsule 500 mg PO Q4H PRN (Reason: pain) Qty: 30 RF: 0 Continued naloxone 4 mg/actuation spray,non-aerosol 1 spray MARIANA ONCE PRN (Reason: opioid overdose) Qty: 2 RF: 0 simvastatin 20 mg tablet 20 mg PO QPM Qty: 90 RF: 3 warfarin 2.5 mg tablet 2.5 - 5 mg PO DAILY Qty: 90 RF: 3 albuterol sulfate [Ventolin HFA] 90 mcg/actuation HFA aerosol inhaler 1 puff IH Q4H PRN (Reason: shortness of breath or wheezing) Qty: 6.7 RF: 5 metformin 500 mg tablet 500 mg PO DAILY Qty: 30 RF: 2 (DME) Inhaler, Assist Devices [Aerochamber Mini] 1 EACH spacer 1 ea Miscellaneous PRN Qty: 1 RF: 0 digoxin 125 mcg tablet 125 mcg PO DAILY Qty: 90 RF: 3 potassium chloride 20 mEq/15 mL liquid 20 meq PO DAILY Qty: 1500 RF: 3 Incruse Ellipta 62.5 mcg/actuation blister with device 1 inh IH DAILY Qty: 90 RF: 3 pregabalin [Lyrica] 50 mg capsule 50 mg PO BID Qty: 60 RF: 5 morphine 15 mg tablet 7.5 mg PO HS MDD 7.5 mg PRN (Reason: pain) Qty: 15 RF: 0 prednisone 5 mg tablet 5 mg PO DAILY Qty: 30 RF: 2 diazepam 2 mg tablet 2 mg PO HS PRN (Reason: anxiety) Qty: 30 RF: 2 duloxetine 20 mg capsule, delayed rel sprinkle 20 mg PO DAILY Qty: 30 RF: 5 torsemide 20 mg tablet 60 - 80 mg PO DAILY Qty: 315 RF: 3 allopurinol 300 mg tablet 300 mg PO DAILY Qty: 90 RF: 3 ropinirole 0.25 mg tablet 0.25 - 1 mg PO HS Qty: 60 RF: 2 metoprolol tartrate 50 mg tablet 25 mg PO BID RF: 0 Discontinued acetaminophen [Tylenol Extra Strength] 500 mg Tablet 1,000 mg PO BID RF: 0 Discharge Instructions Additional Instructions: Open Carpal Tunnel Release Discharge Instructions Activity: You should keep the hand/wrist elevated as much as possible for the first few days. You may use the other fingers as tolerated but avoid trying to do too much too soon. You may perform light activities with the splint in place. Dressing/Cast: Your dressing can stay in place until follow-up. Do NOT get it wet. You may loosen the PARMINDER wrap if you feel it is too tight and then rewrap more loosely. If it unravels or you would like to change it, you can do so after 3 days and keep covered with a clean dressing. Medications: - You should take Tylenol for baseline pain control. - You may apply ice over the wrist, just double bag the dressing so it doesn't get wet. Follow-up: 10-14 days Referrals: Angelito Valadez MD [ [facility] STAFF PHYSICIAN] - Equipment/Supplies: Sling Activity:: Elevate Remove Dressings/Wound Care:: Do Not Remove Shower/Bathe:: Cover Diet:: As Tolerated Discharge Orders Discharge Orders: Discharge Order (Routine); Ordered 10/13/19 Ordered By: Norman Medel
--- NOTE | 2019-10-13 14:06 | W.PM.OP ---
Date of service: 10/13/19 Time of Service: 10:31 Operative Note Operative Note DATE OF PROCEDURE: 10/13/19 PRE-OP DIAGNOSIS: Carpal Tunnel Syndrome POST-OP DIAGNOSIS: same PROCEDURE: Open Carpal Tunnel Release -right SURGEON: Angelito Valadez ANESTHESIA: local ESTIMATED BLOOD LOSS: 5 PATHOLOGY: none sent TOURNIQUET TIME: 0 COMPLICATIONS: None Patient was transported to: same day Patient's condition: stable Indications: Srini is a 79-year-old male who I have seen for carpal tunnel syndrome. He has had persistent numbness and pain about the right wrist with some thenar atrophy. I reviewed the risk of the procedure to include bleeding, infection, pain, stiffness, continued numbness, damage to nerves and vessels, damage to muscles and tendons, need for repeat procedures. He does have significant medical comorbidities so I recommended an open carpal tunnel release done under local anesthetic. Despite these risk, patient desired to proceed. Findings: There was a tightened transverse carpal ligament. It was released fully released. The median nerve was inspected and showed no signs of adhesions or injury. Procedure Description: Srini was greeted in the preoperative holding area. The correct site was identified and marked. The consent was reviewed the patient and signed. The history physical was updated. Patient was taken back to the operating room and placed in the supine position with the right hand placed on a hand table. The hand and forearm was then prepped with ChloraPrep and draped in standard fashion. Prophylactic antibiotics in the form of oral cephalexin were given. A timeout was performed for safe surgery. The surgical site was then injected and anesthetized with 1% lidocaine with epinephrine buffered with sodium bicarbonate. The radial border of the fourth ray was marked on the skin as well as any other pertinent surface anatomy. Using 15 blade the skin was incised sharply. Blunt dissection was carried down to the level of the palmar fascia. This was sharply divided making sure to protect any crossing neurovascular branches. Once this was divided the fibers of the transverse carpal ligament were identified. Using a [place], I was able to place this underneath a portion of the transverse carpal ligament. A knife was then used to cut directly onto the [place]. This release the transverse carpal ligament. Using the [place] to protect underlying tendons and the median nerve, I released the remainder of the transverse carpal ligament. It was notably thickened and tight. A scissor was used to complete the far aspects after making sure there is no interposed tissue. There is notable separation of the leaflets. Elevating, lifting up, the radial flap of the transverse carpal ligament exposed the median nerve. Any adhesions between it and the transverse carpal ligament were released. He was fully inspected and showed no signs of injury or damage. The wound was then fully irrigated. The skin and deeper tissues were closed with a interrupted 4-0 nylon suture. The tourniquet was deflated and there was return of blood flow to all digits. No excessive bleeding from the wound. 4 x 4 gauze was applied followed by Kerlix wrap and an Darrick wrap. At the end the case all counts are correct. The patient tolerated the procedure well and was transferred back to the day surgery area in a stable condition.
== END 2019-10-13 10:50 | disposition home or self-care (01) ==
PROVIDERS: PCP Family Medicine; Visit Provider Student in an Organized Health Care Education/Training Program
PROC: (CPT 64721; principal; 2019-10-13 10:00)
DX: G56.01 Carpal tunnel syndrome, right upper limb (principal)
CPT/HCPCS: 64721; 36415; 85610; L3650

== ENCOUNTER 2019-10-21 17:44 | Emergency (ER) | payer MEDICARE, MEDICAID, SELFPAY ==
[2019-10-21 17:57] VITALS: BP 125/94; PULSE 85; RESP 16; TEMP 36.8; O2SAT 93
--- NOTE | 2019-10-21 17:57 | ED.GENADUL_ITS ---
Discharge Plan Disposition Patient Disposition: HOME Condition: Good Discharge Details Chief Complaint: Trauma Clinical Impression: Contusion of hip, Superficial bruising of back Primary Care Provider: Bennie Adams ED Provider: Samantha James [place] Meds and New Rx's Prescriptions: Continued naloxone 4 mg/actuation spray,non-aerosol 1 spray MARIANA ONCE PRN (Reason: opioid overdose) Qty: 2 RF: 0 simvastatin 20 mg tablet 20 mg PO QPM Qty: 90 RF: 3 warfarin 2.5 mg tablet 2.5 - 5 mg PO DAILY Qty: 90 RF: 3 albuterol sulfate [Ventolin HFA] 90 mcg/actuation HFA aerosol inhaler 1 puff IH Q4H PRN (Reason: shortness of breath or wheezing) Qty: 6.7 RF: 5 metformin 500 mg tablet 500 mg PO DAILY Qty: 30 RF: 2 (DME) Inhaler, Assist Devices [Aerochamber Mini] 1 EACH spacer 1 ea Miscellaneous PRN Qty: 1 RF: 0 digoxin 125 mcg tablet 125 mcg PO DAILY Qty: 90 RF: 3 potassium chloride 20 mEq/15 mL liquid 20 meq PO DAILY Qty: 1500 RF: 3 Incruse Ellipta 62.5 mcg/actuation blister with device 1 inh IH DAILY Qty: 90 RF: 3 pregabalin [Lyrica] 50 mg capsule 50 mg PO BID Qty: 60 RF: 5 morphine 15 mg tablet 7.5 mg PO HS MDD 7.5 mg PRN (Reason: pain) Qty: 15 RF: 0 prednisone 5 mg tablet 5 mg PO DAILY Qty: 30 RF: 2 diazepam 2 mg tablet 2 mg PO HS PRN (Reason: anxiety) Qty: 30 RF: 2 duloxetine 20 mg capsule, delayed rel sprinkle 20 mg PO DAILY Qty: 30 RF: 5 torsemide 20 mg tablet 60 - 80 mg PO DAILY Qty: 315 RF: 3 allopurinol 300 mg tablet 300 mg PO DAILY Qty: 90 RF: 3 ropinirole 0.25 mg tablet 0.25 - 1 mg PO HS Qty: 60 RF: 2 metoprolol tartrate 50 mg tablet 25 mg PO BID RF: 0 acetaminophen 500 mg capsule 500 mg PO Q4H PRN (Reason: pain) Qty: 30 RF: 0 Discharge Instructions Instructions: Contusion in Adults (ED) Additional Instructions: Encourage hydration. May use Tylenol as needed for discomfort. Please continue with medication as previously prescribed. Your x-ray does not show fracture today and your exam is otherwise without abnormality. If you develop new or worsening symptoms please seek care urgently once again. If pain persist over the next week please follow-up with primary care. Referrals: Bennie Adams [Primary Care Provider] - Discharge Data Discharge Date/Time-TO BE ENTERED AT DEPARTURE: 10/21/19 20:45 Medical Decision Making Patient is a pleasant 79-year-old male presented with chief complaint of right hip pain. He reports that last night he tripped over her shoe and fell landing on his right hip. States that he did have difficulty getting himself up that he was able to get himself to a seated position. He denies other injury the time of the incident. No loss of consciousness, headache. Did not strike his head. It does appear that he struck the right thoracic area of his back against so mething but he believes that this may have just slid down something when he fell. He does have an area of ecchymosis over this area but denies any pain with this. No inspiratory discomfort. Denies any shortness of breath. No chest pain. Did not have a syncopal episode. Denies any neck or back pain. No change in bowel or bladder habits. Denies any incontinence. Denies any new numbness or tingling. Patient does have history of peripheral neuropathy. No previous surgeries or fractures to this affected hip. On exam, patient is resting comfortably. He has ecchymosis has drawn on his ba ck but no pain with AP or lateral compression the chest wall. Lungs are clear. No midline discomfort. No saddle paresthesias. Abdominal exam is benign. Normal head neck exam. No pain with AP or lateral compression of the pelvis. He indicates the area of the posterior lateral right hip is area of discomfort but none is listed on exam. Denies any evidence of trauma to this area. He does have full range of motion. No pain with axial loading or rotational movements of the hip. He has no shortening or deformity. He has intact distal pulses, sensation is intact. Plan for imaging of the right hip. At this happened yesterday and patient has not endorsing discomfort elsewhere and no hea d trauma, I do not feel that further imaging is warranted at this point. FINDINGS: Bones/joints: There is generalized osteopenia. No acute fracture. No dislocation. Mild degenerative changes are seen. Soft tissues: Unremarkable. Vasculature: There are atherosclerotic vascular calcifications. IMPRESSION: No acute osseous abnormality. I discussed these findings with the patient. He is requesting discharge. He does feel quite well and reports that he would not have come that his family was worried about him. I did speak with the patient's daughter who reiterates this. He is able to bear weight well. Do not feel a further imaging is required at this point. He has not required any analgesics and has declined this here today. He was given return precautions. I did advise following up with his primary care if pain is not completely subsided in 1 week or if pain returns. All of his questions and concerns were addressed and he is in agreement with this plan.. HPI General Mode of arrival: wheelchair . Date/Time Provider Initiated Documentation: 10/21/19 17:57 . Limitations to Documentation: no limitations . Information obtained by: patient, family (spoke with patients daughter over the phone) and RN notes reviewed . HPI Narrative: Patient is a pleasant 79-year-old gentleman presenting today to complain of right hip pain. He reports that last night he tripped over 1 of his shoes that was on the floor and fell landing on his right hip. He indicates the posterior lateral aspect of the right hip is area of discomfort. He denies other injury the time of the incident. Did not strike his head. No LOC. States that secondary to the hip pain he did have difficulty getting himself back upright without assistance. He denies any numbness or tingling. Denies any abdominal pain, chest pain, shortness of breath. Denies any neck or back pain. He was noted by his daughter to have abrasion on the right side of his thoracic region of his back. However, he denies any pain over this area. Rather, he believes he may have slid this down to something when he landed. Denies any inspiratory pain. Past medical history significant for diabetes, right leg weakness, mild cognitive impairment, essential tremor, peripheral neuropathy, status post heart cath, TIA, atrial fibrillation, hypertension, cardiomyopathy, CAD, CHF, depression, asthma. Patient is anticoagulated on Coumadin. Related Data Home Medications Medication Instructions Recorded Confirmed naloxone 4 mg/actuation nasal spray 1 spray MARIANA ONCE PRN #2 each 06/27/18 10/21/19 simvastatin 20 mg tablet 20 mg PO QPM #90 tab 12/10/18 10/21/19 digoxin 125 mcg (0.125 mg) tablet 125 mcg PO DAILY #90 tab 01/13/19 10/21/19 warfarin 2.5 mg tablet 2.5 - 5 mg PO DAILY #90 tab 01/21/19 10/21/19 albuterol sulfate 90 mcg/actuation 1 puff IH Q4H PRN #6.7 gm 02/20/19 10/21/19 aerosol inhaler potassium chloride 20 mEq/15 mL 20 meq PO DAILY #1500 ml 02/27/19 10/21/19 oral liquid umeclidinium 62.5 mcg/actuation 1 inh IH DAILY #90 each 06/24/19 10/21/19 blister powder for inhalation morphine 15 mg immediate release 7.5 mg PO HS PRN #15 tab MDD 7.5 mg 07/24/19 09/18/19 tablet pregabalin 50 mg capsule 50 mg PO BID #60 cap 07/24/19 09/18/19 prednisone 5 mg tablet 5 mg PO DAILY #30 tab 08/07/19 10/13/19 diazepam 2 mg tablet 2 mg PO HS PRN #30 tab 08/14/19 10/21/19 metformin 500 mg tablet 500 mg PO DAILY #30 tab 08/28/19 10/21/19 duloxetine 20 mg capsule,delayed 20 mg PO DAILY #30 cap 09/22/19 10/21/19 release sprinkle torsemide 20 mg tablet 60 - 80 mg PO DAILY #315 tab 09/25/19 10/21/19 allopurinol 300 mg tablet 300 mg PO DAILY #90 tab 10/06/19 10/21/19 ropinirole 0.25 mg tablet 0.25 - 1 mg PO HS #60 tab 10/06/19 10/21/19 metoprolol tartrate 25 mg PO BID 10/09/19 10/21/19 acetaminophen 500 mg PO Q4H PRN #30 cap 10/13/19 10/21/19 Previous Rx's Medication Instructions Recorded naloxone 4 mg/actuation nasal spray 1 spray MARIANA ONCE PRN #2 each 06/27/18 simvastatin 20 mg tablet 20 mg PO QPM #90 tab 12/10/18 digoxin 125 mcg (0.125 mg) tablet 125 mcg PO DAILY #90 tab 01/13/19 warfarin 2.5 mg tablet 2.5 - 5 mg PO DAILY #90 tab 01/21/19 albuterol sulfate 90 mcg/actuation 1 puff IH Q4H PRN #6.7 gm 02/20/19 aerosol inhaler potassium chloride 20 mEq/15 mL 20 meq PO DAILY #1500 ml 02/27/19 oral liquid umeclidinium 62.5 mcg/actuation 1 inh IH DAILY #90 each 06/24/19 blister powder for inhalation morphine 15 mg immediate release 7.5 mg PO HS PRN #15 tab MDD 7.5 mg 07/24/19 tablet pregabalin 50 mg capsule 50 mg PO BID #60 cap 07/24/19 prednisone 5 mg tablet 5 mg PO DAILY #30 tab 08/07/19 diazepam 2 mg tablet 2 mg PO HS PRN #30 tab 08/14/19 metformin 500 mg tablet 500 mg PO DAILY #30 tab 08/28/19 duloxetine 20 mg capsule,delayed 20 mg PO DAILY #30 cap 09/22/19 release sprinkle torsemide 20 mg tablet 60 - 80 mg PO DAILY #315 tab 09/25/19 allopurinol 300 mg tablet 300 mg PO DAILY #90 tab 10/06/19 ropinirole 0.25 mg tablet 0.25 - 1 mg PO HS #60 tab 10/06/19 acetaminophen 500 mg PO Q4H PRN #30 cap 10/13/19 Allergies Allergy/AdvReac Type Severity Reaction Status Date / Time venom-honey bee Allergy Severe Verified 10/21/19 18:02 oxycodone HCl [From Percocet] Allergy Intermediate Verified 10/21/19 18:02 aspirin AdvReac Mild epistaxis/nose Verified 10/21/19 18:02 bleeds NSAIDS (Non-Steroidal AdvReac Mild epistaxis/nose Verified 10/21/19 18:02 Anti-Inflamma bleeds PARMINDER Inhibitors AdvReac Unknown COUGH Verified 10/21/19 18:02 codeine AdvReac Unknown Verified 10/21/19 18:02 amiodarone AdvReac Insomnia Verified 10/21/19 18:02 diltiazem AdvReac Insomnia Verified 10/21/19 18:02 General YESIKA: 3 Review of Systems Constitutional Constitutional: Reports as per HPI, Denies chills, Denies fatigue, Denies fever(s), Denies headache(s) and Denies weakness Eyes Eyes: Reports as per HPI, Denies blurry vision, Denies change in vision and Denies loss of vision ENT Ears, Nose, Mouth, and Throat: Denies abnormal hearing and Denies headache(s) Cardiovascular Cardiovascular: Reports as per HPI, Denies chest pain and Denies dyspnea Respiratory Respiratory: Reports as per HPI, Denies cough, Denies pain on inspiration, Denies pain with cough and Denies dyspnea Gastrointestinal Gastrointestinal: Reports as per HPI, Denies abdominal pain, Denies nausea and Denies vomiting Genitourinary Genitourinary: Reports as per HPI and Denies urinary incontinence Musculoskeletal Musculoskeletal: Reports as per HPI Integumentary/Breasts Skin/Breast: Reports as per HPI and Denies rash Neurologic Neurologic: Reports as per HPI, Denies abnormal hearing, Denies abnormal movements, Denies abnormal speech, Denies headache(s), Denies lack of coordination, Denies localized weakness, Denies loss of vision, Denies seizure- like activity, Denies paresthesias and Denies weakness Endocrine Endocrine: Denies fatigue [facility] Medical History Atrial fibrillation (Chronic) Cardiomyopathy (Acute) Chronic fatigue (Acute) COPD (chronic obstructive pulmonary disease) (Chronic) Diabetes (Chronic) GERD (gastroesophageal reflux disease) (Chronic) Gout attack (Inactive) HTN (hypertension) (Chronic) Peripheral edema (Acute) Restless leg syndrome (Acute) TIA (transient ischemic attack) (Acute) Social History Smoking/Tobacco Use Status: Never Alcohol Intake: never Drug use: Never Substance use type: does not use Do you feel safe in your relationship?: Yes Exam Const General: cooperative, healthy appearing, comfortable, no acute distress, well developed and well groomed Nutritional Appearance: average body habitus and well nourished Orientation: alert, awake and oriented x3 HENMT Head: normal to inspection, no palpable skull fracture, normocephalic and atraumatic Ears: hearing grossly normal bilaterally, external ears normal and TM's normal bilaterally General nose exam: external nose normal Mouth: oral mucosae normal, lip normal and tongue normal Throat: posterior oropharynx normal Eyes General: appearance normal, both eyes and all related structures Visual Mcconnell: normal visual mcconnell by confrontation Alignment and Position: alignment normal Periorbital: periorbital findings normal Eyelids: eyelids normal Conjunctivae: conjunctivae normal Pupils: PERRL EOM: EOM intact bilaterally Neck Neck: normal visual inspection, full ROM, no lymphadenopathy, no meningeal signs, trachea midline and supple Chest Chest: normal inspection of the chest, normal palpation of entire chest wall, no crepitus, no localized rib tenderness and no tenderness Resp Effort & Inspection: normal respiratory effort, able to speak in complete sentences and no respiratory distress Auscultation: clear to auscultation bilaterally, no rales, no rhonchi and no wheezes Cardio Rate: regular rate Rhythm: regular rhythm Heart Sounds: S1 normal and S2 normal GI Inspection: normal to inspection, no abdominal wall ecchymosis, no edema and non-distended Palpation: soft, no hepatosplenomegaly, not firm, no guarding, no pulsatile masses, not rigid and nontender Auscultation: normal bowel sounds Back/Spine/Pelvis Back: no CVA tenderness Cervical Spine: normal cervical lordosis and cervical ROM normal Thoracic/Lumbar Spine: thoracic and lumbar spine normal to inspection, thoraco- lumbar ROM normal, No thoraco-lumbar ROM limited, No thoraco-lumbar spasm and No thoracic spinal tenderness Pelvis: no pain with anterior-posterior compression and no pain with lateral compression Back/spine/pelvis image: 1. Area of linear ecchymosis/abrasion. No active bleeding. No deep wounds. No palpable defect. No pain with palpation over this area. Lungs are clear. No pain with AP or lateral compression of the chest wall. Skin General skin exam: ecchymosis (As drawn above) Neuro General: patient alert, patient awake, patient oriented x3, gait normal, tone normal and moves all extremities Cranial Nerves: CN's II-XI intact bilaterally Cognition: normal cognition Speech: speech normal Gait: normal gait Motor: muscle tone normal throughout and strength 5/5 throughout Sensory Exam: no sensory deficits noted (no saddle paresthesias) Extrem General: normal to inspection, full ROM, capillary refill normal, no pedal edema and no calf tenderness Right lower extremity: normal to inspection, full ROM, normal capillary refill, no joint enlargement, hip/thigh Details: normal to inspection, normal ROM and other (No shortening, rotational deformity. Axial loading and rotational movements do not elicit pain); no tenderness (Indicates posterior lateral aspect is area where he had discomfort, none elicited on exam), no swelling, no abrasions, no lacerations, no ecchymosis, no crepitus, no foreign bodies, no penetrating wound, no deformity and no unusual warmth, knee Details: normal to inspection and normal ROM; no tenderness and no swelling, lower leg Details: normal to inspection and foot (2+ distal pulses, sensation to light touch intact.); no edema Psych Appearance: grossly normal and well kempt Mental Status: mental status grossly normal Speech and Movement: speech and movement normal
--- NOTE | 2019-10-21 19:25 | DI.RAD_ITS ---
EXAM: XR HIP RT COMPLETE AP PELVIS INDICATION: fall yesterday. COMPARISON: No exams were available for comparison TECHNIQUE: 2D digital imaging was performed. FINDINGS: No acute fracture or dislocation is present. Degenerative changes are seen in the hips and lumbar sp ine. There is generalized osteopenia. Vascular calcifications are seen in the soft tissues. IMPRESSION: No acute fracture or dislocation. DATA REPOSITORY: RADIATION DOSE DELIVERED:
--- NOTE | 2019-10-21 19:33 | DI.VRAD_ITS ---
PROCEDURE INFORMATION: Exam: XR Right Hip with Pelvis when Performed Exam date and time: 10/21/2019 7:20 PM Age: 79 years old Clinical indication: Other: Fall yesterday TECHNIQUE: Imaging protocol: XR Right hip with pelvis when performed. Views: 2 or 3 views. COMPARISON: No relevant prior studies available. FINDINGS: Bones/joints: There is generalized osteopenia. No acute fracture. No dislocation. Mild degenerative changes are seen. Soft tissues: Unremarkable. Vasculature: There are atherosclerotic vascular calcifications. IMPRESSION: No acute osseous abnormality. Dictated and Authenticated by: Jonn Rockwell MD. Ordering:TON Singh MD
[2019-10-21 20:38] VITALS: BP 132/107; PULSE 69; RESP 18; TEMP 37.1; O2SAT 94
== END 2019-10-21 20:45 | disposition home or self-care (01) ==
PROVIDERS: Emergency Provider Physician Assistant; PCP Family Medicine
DX: S70.02XA Contusion of left hip, initial encounter (principal); S20.221A Contusion of right back wall of thorax, initial encounter; W19.XXXA Unspecified fall, initial encounter; E11.9 Type 2 diabetes mellitus without complications; Z79.84 Long term (current) use of oral hypoglycemic drugs; I10 Essential (primary) hypertension; J44.9 Chronic obstructive pulmonary disease, unspecified; Z79.01 Long term (current) use of anticoagulants; I48.91 Unspecified atrial fibrillation
CPT/HCPCS: 99283; 73502; 99285

== ENCOUNTER → 2019-10-26 09:56 | Outpatient (BNVA) | payer MEDICARE, MEDICAID, SELFPAY | PROVIDERS: PCP Family Medicine; Referring Provider Family Medicine; Visit Provider Student in an Organized Health Care Education/Training Program | DX: G56.21 Lesion of ulnar nerve, right upper limb (principal); I50.9 Heart failure, unspecified; I11.0 Hypertensive heart disease with heart failure; J44.9 Chronic obstructive pulmonary disease, unspecified; E11.9 Type 2 diabetes mellitus without complications; Z47.89 Encounter for other orthopedic aftercare ==

== ENCOUNTER 2019-10-27 23:12 | Inpatient (IN) | payer MEDICARE, MEDICAID, SELFPAY ==
--- NOTE | 2019-10-27 23:18 | ED.GENADUL_ITS ---
Discharge Plan Disposition Patient Disposition: [facility] INPATIENT Condition: Fair Discharge Details Chief Complaint: SOB Clinical Impression: Pneumonia, REI (acute kidney injury) Primary Care Provider: Bennie Adams ED Provider: Gordon Gay Newbern Meds and New Rx's Prescriptions: No Action naloxone 4 mg/actuation spray,non-aerosol 1 spray MARIANA ONCE PRN (Reason: opioid overdose) Qty: 2 RF: 0 simvastatin 20 mg tablet 20 mg PO QPM Qty: 90 RF: 3 warfarin 2.5 mg tablet 2.5 - 5 mg PO DAILY Qty: 90 RF: 3 albuterol sulfate [Ventolin HFA] 90 mcg/actuation HFA aerosol inhaler 1 puff IH Q4H PRN (Reason: shortness of breath or wheezing) Qty: 6.7 RF: 5 metformin 500 mg tablet 500 mg PO DAILY Qty: 30 RF: 2 (DME) Inhaler, Assist Devices [Aerochamber Mini] 1 EACH spacer 1 ea Miscellaneous PRN Qty: 1 RF: 0 digoxin 125 mcg tablet 125 mcg PO DAILY Qty: 90 RF: 3 potassium chloride 20 mEq/15 mL liquid 20 meq PO DAILY Qty: 1500 RF: 3 Incruse Ellipta 62.5 mcg/actuation blister with device 1 inh IH DAILY Qty: 90 RF: 3 prednisone 5 mg tablet 5 mg PO DAILY Qty: 30 RF: 2 diazepam 2 mg tablet 2 mg PO HS PRN (Reason: anxiety) Qty: 30 RF: 2 duloxetine 20 mg capsule, delayed rel sprinkle 20 mg PO DAILY Qty: 30 RF: 5 torsemide 20 mg tablet 60 - 80 mg PO DAILY Qty: 315 RF: 3 allopurinol 300 mg tablet 300 mg PO DAILY Qty: 90 RF: 3 ropinirole 0.25 mg tablet 0.25 - 1 mg PO HS Qty: 60 RF: 2 metoprolol tartrate 50 mg tablet 25 mg PO BID RF: 0 acetaminophen 500 mg capsule 500 mg PO Q4H PRN (Reason: pain) Qty: 30 RF: 0 Medical Decision Making Patient presenting with complaint of increasing shortness of breath over the last couple of days. Has cardiomyopathy with CHF, COPD, chronic A. fib on Coumadin. Recent procedure 2 weeks ago. A little tachypnea here but not in distress. Normal room air saturations. EKG is paced. Lungs relatively clear with some diminished breath sounds only noted. We will plan chest x-ray and laboratory studies. Doubt PE given that he is already on Coumadin with therapeutic INRs the last couple of times it has been checked. He also does not describe acute onset of shortness of breath but gradual worsening of his chronic shortness of breath. Patient's labs significant for mildly elevated white count 11.3. Normal hemoglobin. Chemistry significant for elevated BUN and creatinine above his baseline. He has had previous blips in his kidney function which have always reverted back to normal. Electrolytes are fine. His BN P is markedly elevated from baseline. Initial troponin is 0.09. Again patient denies any type of chest pain or pressure. May be related to his REI. Chest x-ray shows a new right lower lobe infiltrate in addition to some mild interstitial markings and possible slight right pleural effusion. Patient ordered for ceftriaxone and doxycycline IV. Case discussed with hospitalist for admission. Will get repeat troponin and if remaining flat will be admitted for further management of pneumonia with REI. Repeat troponin remains flat at 0.09. Dr. Gar re-paged. Patient accepted for admission for management of pneumonia and REI. Medical Records Medical records reviewed: Yes I reviewed the patient's medical records. Lab Data Lab results reviewed: Yes I reviewed the patient's lab results. ECG Data Attestation: I personally reviewed and interpreted this ECG (s) as follows: Prior ECG tracings: not available for review Interpretation: Paced rhythm at a rate of 93. HPI General Mode of arrival: wheelchair . Date/Time Provider Initiated Documentation: 10/27/19 23:18 . Limitations to Documentation: no limitations . Information obtained by: patient, RN notes reviewed and old records reviewed . HPI Narrative: Patient presents to ED with increasing shortness of breath over the last couple of days. Patient is chronically short of breath due to COPD and cardiomyopathy. He has a history of atrial fibrillation and is on Coumadin. About 2 weeks ago he underwent carpal tunnel release. Subsequently has been to the ED since then with a fall as well as follow-up with his primary care because of general weakness and fatigue. Home health as well as home PT/OT referrals have been made. He is now here today with a couple of days of increasing shortness of breath worse with any type of activity or trying to lie flat. He has not noticed an increase in swelling in his legs. He does continue to make urine. He denies fever, cough, chest pain. He is eating and drinking normally with no GI complaints. He did test negative for COVID preoperatively and is self isolating at home only going out for medical appointments. He does report that using his albuterol inhaler does seem to help for short time. Related Data Home Medications Medication Instructions Recorded Confirmed naloxone 4 mg/actuation nasal spray 1 spray MARIANA ONCE PRN #2 each 06/27/18 10/26/19 simvastatin 20 mg tablet 20 mg PO QPM #90 tab 12/10/18 10/26/19 digoxin 125 mcg (0.125 mg) tablet 125 mcg PO DAILY #90 tab 01/13/19 10/26/19 warfarin 2.5 mg tablet 2.5 - 5 mg PO DAILY #90 tab 01/21/19 10/26/19 albuterol sulfate 90 mcg/actuation 1 puff IH Q4H PRN #6.7 gm 02/20/19 10/26/19 aerosol inhaler potassium chloride 20 mEq/15 mL 20 meq PO DAILY #1500 ml 02/27/19 10/26/19 oral liquid umeclidinium 62.5 mcg/actuation 1 inh IH DAILY #90 each 06/24/19 10/26/19 blister powder for inhalation prednisone 5 mg tablet 5 mg PO DAILY #30 tab 08/07/19 10/26/19 diazepam 2 mg tablet 2 mg PO HS PRN #30 tab 08/14/19 10/26/19 metformin 500 mg tablet 500 mg PO DAILY #30 tab 08/28/19 10/26/19 duloxetine 20 mg capsule,delayed 20 mg PO DAILY #30 cap 09/22/19 10/26/19 release sprinkle torsemide 20 mg tablet 60 - 80 mg PO DAILY #315 tab 09/25/19 10/26/19 allopurinol 300 mg tablet 300 mg PO DAILY #90 tab 10/06/19 10/26/19 ropinirole 0.25 mg tablet 0.25 - 1 mg PO HS #60 tab 10/06/19 10/26/19 metoprolol tartrate 25 mg PO BID 10/09/19 10/26/19 acetaminophen 500 mg PO Q4H PRN #30 cap 10/13/19 10/26/19 Previous Rx's Medication Instructions Recorded naloxone 4 mg/actuation nasal spray 1 spray MARIANA ONCE PRN #2 each 06/27/18 simvastatin 20 mg tablet 20 mg PO QPM #90 tab 12/10/18 digoxin 125 mcg (0.125 mg) tablet 125 mcg PO DAILY #90 tab 01/13/19 warfarin 2.5 mg tablet 2.5 - 5 mg PO DAILY #90 tab 01/21/19 albuterol sulfate 90 mcg/actuation 1 puff IH Q4H PRN #6.7 gm 02/20/19 aerosol inhaler potassium chloride 20 mEq/15 mL 20 meq PO DAILY #1500 ml 02/27/19 oral liquid umeclidinium 62.5 mcg/actuation 1 inh IH DAILY #90 each 06/24/19 blister powder for inhalation prednisone 5 mg tablet 5 mg PO DAILY #30 tab 08/07/19 diazepam 2 mg tablet 2 mg PO HS PRN #30 tab 08/14/19 metformin 500 mg tablet 500 mg PO DAILY #30 tab 08/28/19 duloxetine 20 mg capsule,delayed 20 mg PO DAILY #30 cap 09/22/19 release sprinkle torsemide 20 mg tablet 60 - 80 mg PO DAILY #315 tab 09/25/19 allopurinol 300 mg tablet 300 mg PO DAILY #90 tab 10/06/19 ropinirole 0.25 mg tablet 0.25 - 1 mg PO HS #60 tab 10/06/19 acetaminophen 500 mg PO Q4H PRN #30 cap 10/13/19 Allergies Allergy/AdvReac Type Severity Reaction Status Date / Time venom-honey bee Allergy Severe Verified 10/26/19 10:00 oxycodone HCl [From Percocet] Allergy Intermediate Verified 10/26/19 10:00 aspirin AdvReac Mild epistaxis/nose Verified 10/26/19 10:00 bleeds NSAIDS (Non-Steroidal AdvReac Mild epistaxis/nose Verified 10/26/19 10:00 Anti-Inflamma bleeds PARMINDER Inhibitors AdvReac Unknown COUGH Verified 10/26/19 10:00 codeine AdvReac Unknown Verified 10/26/19 10:00 amiodarone AdvReac Insomnia Verified 10/26/19 10:00 diltiazem AdvReac Insomnia Verified 10/26/19 10:00 General YESIKA: 3 Review of Systems Narrative: 02/23 Review of Systems completed and is negative except as stated above in HPI (Systems reviewed: Const, Eyes, ENT, Resp, CV, GI, , MSK, Skin, Neuro) [facility] Medical History Atrial fibrillation (Chronic) Cardiomyopathy (Acute) Chronic fatigue (Acute) COPD (chronic obstructive pulmonary disease) (Chronic) Diabetes (Chronic) GERD (gastroesophageal reflux disease) (Chronic) Gout attack (Inactive) HTN (hypertension) (Chronic) Peripheral edema (Acute) Restless leg syndrome (Acute) TIA (transient ischemic attack) (Acute) Surgical History AICD (automatic cardioverter/defibrillator) present (Acute) Extraction of cataract B/L H/O surgical procedure (Chronic) a. Cataracts bilaterally b. Inguinal hernia LEFT HEART CARDIAC CATH Pacemaker (Acute) Repair of inguinal hernia left Social History Smoking/Tobacco Use Status: Never Alcohol Intake: never Drug use: Never Substance use type: does not use Current gender identity: male Do you feel safe at home: Yes Do you feel safe in your relationship?: Yes Exam Narrative Exam Narrative: Vitals: Afebrile. Tachypnea with otherwise normal vitals and normal room air saturation. Const: Obese male in NAD. HEENT: NC/AT. Normal facial exam. Eyes: Normal conjunctiva and sclera. Neck: Supple. Trachea midline. Lungs: But in no distress. Lungs are remarkably clear, with some decreased breath sounds at the bases. No wheezing or rales appreciated. Cor: RRR without murmur/gallop. Good radial pulses. GI: Soft. NT/ND. No guarding or rebound. Neuro: A+O x 3. Normal speech, mentation. Cranial nerves II - XII grossly intact. No gross motor or sensory deficit. Ext: No C/C. 1-2+ pitting edema of the lower extremities. Skin: Warm and dry without rash.
--- NOTE | 2019-10-27 23:22 | DI.RAD_ITS ---
EXAM: XR CHEST 2V PA LATERAL CLINICAL HISTORY: SOB TECHNIQUE: 2D digital imaging was performed. COMPARISON: No exams were available for comparison FINDINGS: The heart is enlarged. A pacemaker is again noted. There is now vascular prominence and inter incr eased interstitial markings as well as a tiny right pleural effusion. Findings are consistent with C HF. There are increased densities at the right lung base which could represent asymmetric pulmonary edema versus additional pneumonia. IMPRESSION: Cardiomegaly and CHF. Question right lower lobe pneumonia.
[2019-10-27 23:23] VITALS: BP 108/81; PULSE 83; RESP 26; TEMP 36.2; O2SAT 96
[2019-10-27 23:53] LABS: Abs Immature Grans 0.04 k/cumm (0.0-0.09); HCT 43.4 % (40.0-50.0); HGB 14.6 g/dL (13.5-17.5); Mean Corp. HGB Concentration 33.6 g/dL (32.0-36.0); Mean Corpuscular Hemoglobin 35.8 pg (27.0-33.0); Mean Corpuscular Volume 106.4 fL (80-95); Mean Platelet Volume 11.2 fL (8.0-11.0); Platelet Count 161 x1000/uL (130-400); RBC 4.08 m/cumm (4.50-6.00); RBC Distribution Width 15.1 % (11.8-14.1); White Blood Cell Count 11.27 k/cumm (4.4-10.8)
[2019-10-28] VITALS (9 sets, daily range): BP systolic 104–132; BP diastolic 62–89; PULSE 68–98; RESP 18–22; TEMP 35.3–36.9; O2SAT 92–98
[2019-10-28 00:09] LABS: Absolute Neutrophil Count 8.57 k/cumm (1.2-6.7)
[2019-10-28 00:10] LABS: Atypical Lymphocytes % 2; Diff Comment Manual Differential; Macrocytosis 3+; Polychromasia Present
[2019-10-28 00:13] LABS: Anion Gap 8.9 mmol/L (3-11); BUN 25 mg/dL (7-18); CO2 30.1 mmol/L (21.0-32.0); CREATININE 1.52 mg/dL (0.70-1.30); Calcium 8.6 mg/dL (8.5-10.1); Chloride 98 mmol/L (98-107); Estimated GFR 44.69 (mL/min/1.73m2); Glucose 144 mg/dL (74-106); Magnesium 1.9 mg/dL (1.8-2.4); NT-proBNP 8526 pg/mL (<300); Potassium 4.1 mmol/L (3.5-5.1); Sodium 137 mmol/L (136-145)
[2019-10-28 00:15] LABS: Troponin I 0.09 ng/mL (<0.06)
--- NOTE | 2019-10-28 00:21 | DI.VRAD_ITS ---
PROCEDURE INFORMATION: Exam: XR Chest, 2 Views Exam date and time: 10/27/2019 00:10 Age: 79 years old Clinical indication: Other: SOB; Prior surgery; Surgery date: 6+ months; Surgery type: Piecemaker TECHNIQUE: Imaging protocol: XR of the chest Views: 2 views. COMPARISON: CR XR CHEST 2V PA LATERAL 05/30/2018 12:37 FINDINGS: Tubes, catheters and devices: Left chest wall pacemaker AICD in satisfactory position. Lungs: A new patchy opacity in the right lung base is concerning for pneumonia. Probable superimposed patchy subsegmental atelectasis. Pleural space: A trace right pleural effusion is suspected, new from prior. No pneumothorax. Heart/Mediastinum: Stable mild cardiomegaly with new mild vascular congestion. Bones/joints: No acute fracture. IMPRESSION: 1. A new patchy opacity in the right lung base is concerning for pneumonia. 2. A trace right pleural effusion is suspected, new from prior. 3. Stable mild cardiomegaly with new mild vascular congestion. Dictated and Authenticated by: Katie Fall MD. Ordering:REBECCA Leyva MD
[2019-10-28] MEDS: cefTRIAXone 1 GM/50 ML BAG IVPB (01:45)
[2019-10-28] MEDS: DOXYCYCLINE 100 MG in Normal Saline 100 ML IVPB (01:45)
[2019-10-28 02:35] LABS: Troponin I 0.09 ng/mL (<0.06)
--- NOTE | 2019-10-28 03:08 | W.PM.HP.N ---
Date of service: 10/28/19 Time of Service: 04:00 Assessment and Plan Assessment and plan (1) Acute on chronic combined systolic (congestive) and diastolic (congestive) heart failure: Status: Acute Assessment and plan: EF 20-25% per echo in 2017, s/p AICD. On digoxin, metoprolol, torsemide. Previously, did not tolerate entresto. Appears to be fluid overloaded per CXR and elevated proBNP. Will monitor on telemetry to ensure that the cause of this is not paroxysmal RVR. Diurese while monitoring I/O's, daily weights, Cr. Restric salt. Repeat echo. R/o ACS. Interrogate ACID. (2) Right lower lobe pneumonia: Status: Acute Assessment and plan: In 2017 at [facility], there is a mention of a possible aspiration based on location of infiltrate seen at that time. Start the patient on zosyn. Check urine strep, legionella antigens, sputum C&S and PCR for mycoplasma. Obtain swallow eval. Check TSH, procalcitonin. Asymmetric pulmonary edema can also look like this. (3) Elevated troponin: Status: Acute Assessment and plan: In setting of exacerbation of CHF. Doubt true ACS, but type 2 NSTEMI is a possibility. Also, slightly elevated creatinine could be contributing. Patient is allergic to aspirin, so we will not add this to his regimen. Will diurese. Check fasting lipid panel. Continue to trend troponins. Monitor on tele. Interrogate AICD. (4) Pulmonary hypertension: Status: Chronic Assessment and plan: Known problem. I am unable to see any sleep studies in the system. Diurese, monitoring I/O's and daily weights. Consider trilogy vs sleep study. (5) REI (acute kidney injury): Status: Acute Assessment and plan: Mild. Possibly cardiorenal vs post-renal. Check bladder scans. Carefully diurese, monitoring Cr. (6) Asymmetric edema of both lower extremities: Status: Acute Assessment and plan: Check venous doppler due to concern for DVT. While INR was supratherapeutic on admission, we do not know what it was a couple of days ago, and the patient may have had the time to form a thrombus. (7) AF (paroxysmal atrial fibrillation): Status: Chronic Assessment and plan: Interrogate pacer - possible that CHF exacerbation is due to paroxysmal rapid rate. Continue beta blockers. Hold coumadin given supratherapeutic INR. (8) Dilated idiopathic cardiomyopathy: Status: Chronic Assessment and plan: Negative MPI in 2017. Considered nonischemic in etiology. Repeat Echo. Dicodie as above (9) COPD (chronic obstructive pulmonary disease): Status: Acute Assessment and plan: Continue prednisone; schedule combivent with prn albuterol (10) Non-insulin dependent diabetes mellitus: Status: Acute Assessment and plan: Cover with SSI (11) Supratherapeutic INR: Status: Acute Assessment and plan: hold coumadin and recheck in am (12) Ambulatory dysfunction: Status: Acute (13) DVT prophylaxis: Status: Acute Assessment and plan: INR supratherapeutic on coumadin (14) Discharge planning issues: Status: Acute Assessment and plan: DNI, not DNR s/p AICD. Consult palliative care. Consult PT History of Present Illness History of Present Illness Chief Complaint: Shortness of breath Narrative: Mr Romano is a 79 year old male with PMHx of NICMO/chronic combined systolic and diastolic CHF with EF of 20-25% by latest echo (2017), s/p AICD, as well as pulmonary hypertension with RV dysfunction, paroxysmal atrial fibrillation, non-oxygen but steroid dependent COPD, asthma, bronchiectasis, as well as question of aspiration pneumonia at [facility] in 2017, who presented to [facility] ED today complaining of shortness of breath, worse with laying down. The patient states that he is chronically short of breath, but that he started to have the symptoms while laying down 2 nights ago. Endorses chronic leg swelling and admits to dietary indiscretion as far as salt, though it is no more than usual. He does not weigh himself on daily basis. He denies chest pain, any AICD discharges, cough, or fever. He denies exposure to COVID-19. He lives with his daughter. Home health PT started coming to the patient's house after his fall. The patient states that he does not have home health nursing. He was found to have a RLL infiltrate as well as evidence of pulmonary edema on imaging and by elevated proBNP and was initiated on doxycycline/ceftriaxone in the ED. His troponin was mildly elevated to 0.09, but flat. EKG showed paced rhythm. Patient also sustained a mechanical fall on 10/21/2019, for which he was seen in ED. Hospitalists were asked to admit the patient for further care. Review of Systems All systems reviewed & are unremarkable except as noted in HPI and below PFSH Medical History Asthma (Chronic) Atrial fibrillation (Chronic) Bronchiectasis (Acute 04/13/16) Chronic combined systolic and diastolic CHF (congestive heart failure) (Acute) Chronic fatigue (Acute) Dilated idiopathic cardiomyopathy (Chronic) did not tolerate entresto. 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 Cataracts bilaterally b. Inguinal hernia LEFT HEART CARDIAC CATH Pacemaker (Acute) Repair of inguinal hernia left Family History Father Heart disease Mother Heart disease Social History Smoking/Tobacco Use Status: Never Alcohol Intake: never Drug use: Never Substance use type: does not use Current gender identity: male Do you feel safe at home: Yes Do you feel safe in your relationship?: Yes Meds Home Medications and Allergies Home Medications Medication Instructions Recorded Confirmed Type Inhaler, Assist Devices #1 aer 12/27/17 01/21/19 Clinic [Aerochamber Mini] naloxone 4 mg/actuation nasal spray 1 spray MARIANA ONCE PRN #2 each 06/27/18 10/26/19 Rx simvastatin 20 mg tablet 20 mg PO QPM #90 tab 12/10/18 10/26/19 Rx digoxin 125 mcg (0.125 mg) tablet 125 mcg PO DAILY #90 tab 01/13/19 10/26/19 Rx warfarin 2.5 mg tablet 2.5 - 5 mg PO DAILY #90 tab 01/21/19 10/26/19 Rx albuterol sulfate 90 mcg/actuation 1 puff IH Q4H PRN #6.7 gm 02/20/19 10/26/19 Rx aerosol inhaler potassium chloride 20 mEq/15 mL 20 meq PO DAILY #1500 ml 02/27/19 10/26/19 Rx oral liquid umeclidinium 62.5 mcg/actuation 1 inh IH DAILY #90 each 06/24/19 10/26/19 Rx blister powder for inhalation prednisone 5 mg tablet 5 mg PO DAILY #30 tab 08/07/19 10/26/19 Rx diazepam 2 mg tablet 2 mg PO HS PRN #30 tab 08/14/19 10/26/19 Rx metformin 500 mg tablet 500 mg PO DAILY #30 tab 08/28/19 10/26/19 Rx duloxetine 20 mg capsule,delayed 20 mg PO DAILY #30 cap 09/22/19 10/26/19 Rx release sprinkle torsemide 20 mg tablet 60 - 80 mg PO DAILY #315 tab 09/25/19 10/26/19 Rx allopurinol 300 mg tablet 300 mg PO DAILY #90 tab 10/06/19 10/26/19 Rx ropinirole 0.25 mg tablet 0.25 - 1 mg PO HS #60 tab 10/06/19 10/26/19 Rx metoprolol tartrate 25 mg PO BID 10/09/19 10/26/19 History acetaminophen 500 mg PO Q4H PRN #30 cap 10/13/19 10/26/19 Rx Allergies Allergy/AdvReac Type Severity Reaction Status Date / Time venom-honey bee Allergy Severe Verified 10/26/19 10:00 oxycodone HCl [From Percocet] Allergy Intermediate Verified 10/26/19 10:00 aspirin AdvReac Mild epistaxis/nose Verified 10/26/19 10:00 bleeds NSAIDS (Non-Steroidal AdvReac Mild epistaxis/nose Verified 10/26/19 10:00 Anti-Inflamma bleeds PARMINDER Inhibitors AdvReac Unknown COUGH Verified 10/26/19 10:00 codeine AdvReac Unknown Verified 10/26/19 10:00 amiodarone AdvReac Insomnia Verified 10/26/19 10:00 diltiazem AdvReac Insomnia Verified 10/26/19 10:00 Exam Narrative Exam Narrative: General: Very pleasant elderly obese male, does not appear toxic, not in respiratory distress Neurological: A&Ox3, no focal deficits Psychiatric: Appropriate speech pattern/content Skin: Visible skin intact HEENT: Atraumatic, normocephalic, EOMI, dry MM, clear oropharynx, no submandibular or cervical lymphadenopathy, ?mild goiter, no JVD Cardiovascular: seemingly RRR, no m/r/g Lungs: very quiet crackles, heard predominantly at the right base; otherwise, diminished breath souns B Gastrointestinal: soft, nontender, nondistended Genitourinary: deferred Extremities: 2+ BLE edema, L slightly>R Results Imaging Additional studies: CXR: 1. A new patchy opacity in the right lung base is concerning for pneumonia. 2. A trace right pleural effusion is suspected, new from prior. 3. Stable mild cardiomegaly with new mild vascular congestion. EKG: paced rhythm with non-uniform QRS complexes, HR 93 Labs Result diagrams: 10/27/19 23:40 10/27/19 23:40 Labs: Laboratory Results - last 24 hr 10/27/19 10/27/19 10/27/19 23:40 23:40 23:40 WBC 11.27 H RBC 4.08 L Hgb 14.6 Hct 43.4 MCV 106.4 H MCH 35.8 H MCHC 33.6 RDW 15.1 H Plt Count 161 MPV 11.2 H Immature Gran % 0.0 Neutrophils % 76.0 Lymphocytes % 14.0 Atypical Lymphs % 2 Monocytes % 8.0 Eosinophils % 0.0 Basophils % 0.0 Absolute Neutrophils 8.57 H Absolute Lymphocytes 1.80 Absolute Monocytes 0.90 H Absolute Eosinophils 0.00 Absolute Basophils 0.00 Differential Comment Manual differential RBC Morphology See below Polychromasia Present Macrocytosis 3+ PT 39.0 H D INR 4.0 H D Sodium 137 Potassium 4.1 Chloride 98 Carbon Dioxide 30.1 Anion Gap 8.9 BUN 25 H Creatinine 1.52 H Estimated GFR/1.73 m2 44.69 Glucose 144 H Calcium 8.6 Magnesium 1.9 Troponin I 0.09 H* NT-Pro-B Natriuret Pep 8526 H 10/28/19 02:00 WBC RBC Hgb Hct MCV MCH MCHC RDW Plt Count MPV Immature Gran % Neutrophils % Lymphocytes % Atypical Lymphs % Monocytes % Eosinophils % Basophils % Absolute Neutrophils Absolute Lymphocytes Absolute Monocytes Absolute Eosinophils Absolute Basophils Differential Comment RBC Morphology Polychromasia Macrocytosis PT INR Sodium Potassium Chloride Carbon Dioxide Anion Gap BUN Creatinine Estimated GFR/1.73 m2 Glucose Calcium Magnesium Troponin I 0.09 H* NT-Pro-B Natriuret Pep Last Vital Signs Temp 36.9 C 10/28/19 01:47 Pulse 69 10/28/19 01:47 Resp 22 10/28/19 01:47 BP 128/89 10/28/19 01:47 Pulse Ox 95 10/28/19 01:47 COVID-19 Screening In the past 14 days, have you traveled outside of [place] or [place]?: NO Recent travel in the [facility] within the last 14 days?: No Recent out of the country travel within the last 14 days?: No Exposure or possible exposure to illness during travel?: No Had IN PERSON contact w/suspected or confirmed C-19 person: No Have you had the following symptoms in the past few days?: Yes Symptoms noted since travel?: Lower Respiratory
[2019-10-28] MEDS: PIPERACILLIN/TAZO 3.375 GM in Normal Saline 50 ML IVPB (04:05)
[2019-10-28] MEDS: Furosemide 40 MG/4 ML VIAL IVP ×3 (04:07→16:12)
[2019-10-28] MEDS: Normal Saline Flush 10 ML SYR IVP ×3 (04:07→16:12)
[2019-10-28 07:08] LABS: HGB 14.3 g/dL (13.5-17.5); Mean Corpuscular Hemoglobin 36.1 pg (27.0-33.0); Mean Corpuscular Volume 106.1 fL (80-95); Mean Platelet Volume 11.3 fL (8.0-11.0); Platelet Count 168 x1000/uL (130-400); RBC 3.96 m/cumm (4.50-6.00)
[2019-10-28 07:29] LABS: Absolute Neutrophil Count 7.21 k/cumm (1.2-6.7)
[2019-10-28 07:30] LABS: Absolute Eosinophil Count 0.21 k/cumm (0.0-0.7); Absolute Lymphocyte Count 2.65 k/cumm (1.2-3.4); Absolute Monocyte Count 0.53 k/cumm (0.11-0.7); Anisocytosis 1+; Diff Comment Manual Differential; Hypochromasia 2+; Macrocytosis 2+; Nucleated RBC 2 /100WBC; Polychromasia Present
[2019-10-28 07:32] LABS: BUN 27 mg/dL (7-18); CREATININE 1.37 mg/dL (0.70-1.30); Calcium 8.8 mg/dL (8.5-10.1); Chloride 100 mmol/L (98-107); Digoxin 0.71 ng/mL (0.90-2.00); Estimated GFR 50.39 (mL/min/1.73m2); Glucose 191 mg/dL (74-106); Potassium 3.2 mmol/L (3.5-5.1); Sodium 137 mmol/L (136-145); TSH (W/Ref FT4) 1.16 uIU/mL (0.36-3.74)
[2019-10-28 07:37] LABS: Prothrombin Time 41.7 sec (9.3-11.0)
[2019-10-28 07:39] LABS: INR 4.3 (0.9-1.1)
[2019-10-28 08:00] LABS: Procalcitonin 0.2 ng/mL
[2019-10-28] MEDS: Ipratropium/Albuterol 4 GM 120 PUFF INH IH ×4 (08:29→20:24)
[2019-10-28] MEDS: Potassium Chloride 20 MEQ TABCR PO ×3 (08:48→20:24)
[2019-10-28] MEDS: Insulin Aspart 300 UNITS/3 ML PEN SC ×3 (09:35→17:09)
[2019-10-28] MEDS: DULoxetine 20 MG CAP PO (09:37)
[2019-10-28] MEDS: Digoxin 0.125 MG TAB PO (09:37)
[2019-10-28] MEDS: predniSONE 5 MG TAB PO (09:38)
[2019-10-28] MEDS: Spironolactone 50 MG TAB PO (09:38)
[2019-10-28] MEDS: Allopurinol 300 MG TAB PO (09:38)
[2019-10-28] MEDS: Metoprolol 50 MG TAB 25 MG PO (09:42)
--- NOTE | 2019-10-28 11:06 | PT.INNT ---
Date of service: 10/28/19 Time of Service: 11:07 PT Notes Visit Reasons: RLL PNA,ACCUTE EXACERBATION Referral for skilled PT services for patient was received today. Will await COVID19 testing result prior to PT evaluation. Dr. Jones was consulted and is in agreement of the plan. Thank you very much for this referral. Beverley Cisneros PT, DPT, CLT [facility] Inpatient PT at [place], [place]
[2019-10-28 11:22] LABS: Troponin I 0.07 ng/mL (<0.06)
[2019-10-28] MEDS: Acetaminophen 325 MG TAB PO ×3 (12:08→22:07)
[2019-10-28 15:15] LABS: COVID-19 RT-PCR UVMMC Result Negative (Negative)
--- NOTE | 2019-10-28 15:52 | PDOC.CMIN ---
- If Service Date Differs Date of service: 10/28/19 Time of Service: 15:52 Care Management Initial Assess REASON FOR HOSPITALIZATION:: RLL PNA, Acute Exacerbation PAST MEDICAL HISTORY/PAST SURGICAL HISTORY:: Medical History . Asthma (Chronic). Atrial fibrillation (Chronic). Bronchiectasis (Acute 04/13/16). Chronic combined systolic and diastolic CHF (congestive heart failure) (Acute). Chronic fatigue (Acute). Dilated idiopathic cardiomyopathy (Chronic). did not tolerate entresto. Negative MPI at [facility] in 04/2017. GERD (gastroesophageal reflux disease) (Chronic). Gout attack (Inactive). HTN (hypertension) (Chronic). 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 Non-insulin dependent diabetes mellitus (Acute). Peripheral edema (Acute). Pulmonary hypertension (Chronic). Restless leg syndrome (Acute). 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 TIA (transient ischemic attack) (Acute). Surgical History . AICD (automatic cardioverter/defibrillator) present (Acute). Extraction of cataract. B/L. H/O surgical procedure (Chronic). a. Cataracts bilaterally. b. Inguinal hernia. LEFT HEART CARDIAC CATH. Pacemaker (Acute). Repair of inguinal hernia. left PREVIOUS FUNCTIONAL STATUS/SOCIAL/FAMILY SUPPORTS:: Srini lives alone in his home in [place]. Per report, he still drives and handles his own finances. He is independent at baseline. His daughter, Juju, is supportive and lives nearby. CURRENT FUNCTIONAL STATUS:: Srini is currently under precautions for Covid 19, so CM did not meet with him. He had a Palliative care consultation today with Dr. Meyer. His daughter, Juju, asked for an update from the MD. Dr. Meyer will call and speak with her. CM will continue to follow. ADVANCE DIRECTIVES:: None on file. Has patient been provided with info about the portal/API?: Yes Did the patient sign up for the portal?: Yes (previously signed up) CODE STATUS:: DNI INSURANCE COVERAGE / FINANCIAL ISSUES:: [facility] CURRENT HOME/COMMUNITY SERVICES/EQUIPMENT:: No current services. Owns a walker and a cane. PRIMARY CARE PHYSICIAN:: Bennie Adams POTENTIAL DISCHARGE NEEDS:: Evaluations for further needs, follow up appointments. PATIENT/FAMILY EDUCATION NEEDS:: Review discharge instructions reagarding activity levels and medications, discussion of self care needs and goals of care. ANTICIPATED BARRIERS TO DISCHARGE:: None identified at this time. TRANSPORTATION:: Via private vehicle by family when ready. PLAN:: Anticipate Srini will return home when medically cleared. Further evaluations will be made to determine the necessity of services upon discharge. He will be driven home by family via private vehicle when ready. CM will continue to follow.
[2019-10-28] MEDS: Albuterol HFA 8 GM 60 PUFF INH IH ×2 (15:55→23:36)
--- NOTE | 2019-10-28 16:33 | W.PM.PROGNOT ---
Date of Service Date of service: 10/28/19 Time of Service: 16:33 Assessment and Plan Assessment and plan (1) Acute on chronic combined systolic (congestive) and diastolic (congestive) heart failure: Status: Acute Assessment and plan: As per outlined by Dr. Gar. Continue with diuresis continue with atrial fibrillation rate control. We will titrate his metoprolol dose to control his atrial fibrillation rate. His repeat troponin came back within normal limits. I suspect the transient rise in troponin is not a true acute coronary event but was probably subendocardial ischemia due to rapid atrial fibrillation and volume overload. (2) Elevated troponin: Status: Acute Assessment and plan: Repeat troponin this morning came back negative. Impression as above.. (3) Pulmonary hypertension: Status: Chronic Assessment and plan: Known problem. I am unable to see any sleep studies in the system. Diurese, monitoring I/O's and daily weights. Consider trilogy vs sleep study. (4) REI (acute kidney injury): Status: Acute Assessment and plan: Mild. Possibly cardiorenal vs post-renal. Check bladder scans. Carefully diurese, monitoring Cr. (5) AF (paroxysmal atrial fibrillation): Status: Chronic Assessment and plan: Titrate beta-blockers. Continue to hold warfarin until INR drops below 4 (6) Dilated idiopathic cardiomyopathy: Status: Chronic Assessment and plan: Negative MPI in 2017. Considered nonischemic in etiology. Repeat Echo. Diurese as above (7) COPD (chronic obstructive pulmonary disease): Status: Acute Assessment and plan: Continue prednisone; schedule combivent with prn albuterol (8) Non-insulin dependent diabetes mellitus: Status: Acute Assessment and plan: Cover with SSI (9) Supratherapeutic INR: Status: Acute Assessment and plan: hold coumadin and recheck in am (10) Ambulatory dysfunction: Status: Acute Assessment and plan: Exacerbated by recent fall and right hip contusion. X-ray of his hip showed no fracture. Will request physical therapy to see him in the morning now that his COVID-19 test is negative. (11) DVT prophylaxis: Status: Acute Assessment and plan: INR supratherapeutic on coumadin continue to hold Coumadin until INR is below 4. (12) Discharge planning issues: Status: Acute Assessment and plan: DNI, not DNR s/p AICD. Consult palliative care. Dr. Meyer saw the patient this afternoon and indicated that at times when the patient is complaining of shortness of breath his oxygen saturation is within normal limits. She feels that there is some anxiety component to his symptoms of dyspnea. While I cannot discount that I think his primary dyspnea is secondary to his uncontrolled atrial fibrillation rate. Consult PT Subjective Subjective Interval history since last seen: 79-year-old male with a history of nonischemic cardiomyopathy who presented with progressive dyspnea over the last several weeks. No associated fever chills nor any purulent sputum production. He has a chronic bronchitic type symptoms of coughing up whitish mucus on most days. He had no leukocytosis on admission and chest x-ray was read as cardiomegaly and CHF and questionable right lower lobe pneumonia. He was treated emergency department with with Rocephin and doxycycline and the night hospitalist put him on Zosyn. Procalcitonin level was ordered and came back 0.2 which is low likelihood of sepsis or an acute bacterial infection. I discontinued his Zosyn this morning as I feel that he is having an exacerbation of his chronic CHF and has no evidence for pneumonia. He has biventricular pacer AICD was interrogated by a physician special ed assistant from [facility] EPS services. He has had some tachyarrhythmias dating back to early October which she had nonsustained ventricular tachycardia but did not reach a threshold to require any antitachycardia pacing nor any defibrillation. His last cardioversion shocks were in 2018. He is also noted to be in atrial tachycardia probable atrial fibrillation with rates up to 145 bpm with episodes lasting up to 11 minutes. He has known atrial fibrillation. Patient was started on IV Lasix at 40 mg twice a day so far he is diuresed 1550 mL. We will continue diuresis and work on atrial fibrillation rate control. Exam Narrative Exam Narrative: Obese male sitting up in his chair. Alert and oriented person place time circumstance. Neck is supple nontender no overt JVD. Carotid pulses are irregularly irregular Lungs with bibasilar posterior rales no rhonchi or wheezing. Clear anteriorly. Heart is irregularly irregular but at a controlled rate. Soft systolic murmur over the apex. Abdomen soft and nontender Lower extremities with 2+ bilateral pitting pedal and ankle edema. Objective Objective Clinical Data: Abnormal lab results 10/27/19 10/27/19 10/27/19 Range/Units 23:40 23:40 23:40 WBC 11.27 H (4.4-10.8) k/cumm RBC 4.08 L (4.50-6.00) m/cumm MCV 106.4 H (80-95) fL MCH 35.8 H (27.0-33.0) pg RDW 15.1 H (11.8-14.1) % MPV 11.2 H (8.0-11.0) fL Absolute Neutrophils 8.57 H (1.2-6.7) k/cumm Absolute Monocytes 0.90 H (0.11-0.7) k/cumm PT 39.0 H D (9.3-11.0) sec INR 4.0 H D (0.9-1.1) Potassium (3.5-5.1) mmol/L BUN 25 H (7-18) mg/dL Creatinine 1.52 H (0.70-1.30) mg/dL Glucose 144 H (74-106) mg/dL Troponin I 0.09 H* (<0.06) ng/mL NT-Pro-B Natriuret Pep 8526 H (<300) pg/mL Digoxin (0.90-2.00) ng/mL 10/28/19 10/28/19 10/28/19 Range/Units 02:00 06:40 06:40 WBC (4.4-10.8) k/cumm RBC 3.96 L (4.50-6.00) m/cumm MCV 106.1 H (80-95) fL MCH 36.1 H (27.0-33.0) pg RDW 15.0 H (11.8-14.1) % MPV 11.3 H (8.0-11.0) fL Absolute Neutrophils 7.21 H (1.2-6.7) k/cumm Absolute Monocytes (0.11-0.7) k/cumm PT (9.3-11.0) sec INR (0.9-1.1) Potassium 3.2 L (3.5-5.1) mmol/L BUN 27 H (7-18) mg/dL Creatinine 1.37 H (0.70-1.30) mg/dL Glucose 191 H (74-106) mg/dL Troponin I 0.09 H* 0.10 H* (<0.06) ng/mL NT-Pro-B Natriuret Pep (<300) pg/mL Digoxin 0.71 L (0.90-2.00) ng/mL 10/28/19 Range/Units 06:40 WBC (4.4-10.8) k/cumm RBC (4.50-6.00) m/cumm MCV (80-95) fL MCH (27.0-33.0) pg RDW (11.8-14.1) % MPV (8.0-11.0) fL Absolute Neutrophils (1.2-6.7) k/cumm Absolute Monocytes (0.11-0.7) k/cumm PT 41.7 H (9.3-11.0) sec INR 4.3 H* (0.9-1.1) Potassium (3.5-5.1) mmol/L BUN (7-18) mg/dL Creatinine (0.70-1.30) mg/dL Glucose (74-106) mg/dL Troponin I (<0.06) ng/mL NT-Pro-B Natriuret Pep (<300) pg/mL Digoxin (0.90-2.00) ng/mL Vital Signs Temperature 36.3 C L 10/28/19 09:45 Temperature Source Tympanic 10/28/19 09:45 Pulse 75 10/28/19 09:45 Pulse Rhythm Irregular 10/28/19 13:30 Respiratory Rate 18 10/28/19 09:45 Respiratory Effort 10/28/19 13:30 Respiratory Depth Normal 10/28/19 13:30 Respiratory Pattern Normal 10/28/19 13:30 Blood Pressure 118/75 10/28/19 09:45 Blood Pressure Position Supine 10/27/19 23:23 Pulse Oximetry 95 10/28/19 09:45 Oxygen Delivery Method Room Air 10/28/19 09:45 Oxygen Flow Rate 0 10/28/19 09:45 Pain Level 2 10/28/19 13:08 Comment 10/28/19 04:20 Intake & Output 10/27/19 10/28/19 10/28/19 23:59 11:59 23:59 Intake Total 570 / 1120 550 / 1120 Output Total 950 / 1250 300 / 1250 Balance -380 / -130 250 / -130 Weight 90.265 kg 89.3 kg Intake: IV 150 / 160 10 / 160 Oral 420 / 960 540 / 960 Output: Urine 950 / 1250 300 / 1250 Other: Urine Color Straw Light Livier Urine Appearance Clear Clear Urine Odor None None Voiding Methods Urinal Toilet Laboratory Results WBC 10.60 k/cumm (4.4-10.8) 10/28/19 06:40 RBC 3.96 m/cumm (4.50-6.00) L 10/28/19 06:40 Hgb 14.3 g/dL (13.5-17.5) 10/28/19 06:40 Hct 42.0 % (40.0-50.0) 10/28/19 06:40 MCV 106.1 fL (80-95) H 10/28/19 06:40 MCH 36.1 pg (27.0-33.0) H 10/28/19 06:40 MCHC 34.0 g/dL (32.0-36.0) 10/28/19 06:40 RDW 15.0 % (11.8-14.1) H 10/28/19 06:40 Plt Count 168 x1000/uL (130-400) 10/28/19 06:40 MPV 11.3 fL (8.0-11.0) H 10/28/19 06:40 Immature Gran % 0.0 % 10/28/19 06:40 Neutrophils % 68.0 10/28/19 06:40 Lymphocytes % 25.0 10/28/19 06:40 Atypical Lymphs % 2 10/27/19 23:40 Monocytes % 5.0 10/28/19 06:40 Eosinophils % 2.0 10/28/19 06:40 Basophils % 0.0 10/28/19 06:40 Absolute Neutrophils 7.21 k/cumm (1.2-6.7) H 10/28/19 06:40 Absolute Lymphocytes 2.65 k/cumm (1.2-3.4) 10/28/19 06:40 Absolute Monocytes 0.53 k/cumm (0.11-0.7) 10/28/19 06:40 Absolute Eosinophils 0.21 k/cumm (0.0-0.7) 10/28/19 06:40 Absolute Basophils 0.00 k/cumm (0.0-0.2) 10/28/19 06:40 Nucleated RBCs 2 /100WBC 10/28/19 06:40 Differential Comment Manual differential 10/28/19 06:40 RBC Morphology See below 10/28/19 06:40 Polychromasia Present 10/28/19 06:40 Hypochromasia 2+ 10/28/19 06:40 Anisocytosis 1+ 10/28/19 06:40 Macrocytosis 2+ 10/28/19 06:40 PT 41.7 sec (9.3-11.0) H 10/28/19 06:40 INR 4.3 (0.9-1.1) H* 10/28/19 06:40 Sodium 137 mmol/L (136-145) 10/28/19 06:40 Potassium 3.2 mmol/L (3.5-5.1) L 10/28/19 06:40 Chloride 100 mmol/L (98-107) 10/28/19 06:40 Carbon Dioxide 29.0 mmol/L (21.0-32.0) 10/28/19 06:40 Anion Gap 8.0 mmol/L (3-11) 10/28/19 06:40 BUN 27 mg/dL (7-18) H 10/28/19 06:40 Creatinine 1.37 mg/dL (0.70-1.30) H 10/28/19 06:40 Estimated GFR/1.73 m2 50.39 (mL/min/1.73m2) 10/28/19 06:40 Glucose 191 mg/dL (74-106) H 10/28/19 06:40 Calcium 8.8 mg/dL (8.5-10.1) 10/28/19 06:40 Magnesium 2.0 mg/dL (1.8-2.4) 10/28/19 06:40 Troponin I 0.07 ng/mL (<0.06) 10/28/19 10:43 NT-Pro-B Natriuret Pep 8526 pg/mL (<300) H 10/27/19 23:40 Procalcitonin 0.2 ng/mL 10/28/19 06:40 TSH 1.16 uIU/mL (0.36-3.74) 10/28/19 06:40 Digoxin 0.71 ng/mL (0.90-2.00) L 10/28/19 06:40 COVID-19 PCR Negative (Negative) 10/28/19 02:40 Nasopharyn COVID-19 PCR Not Applicable 10/28/19 02:40 Ref Test Perform Site [facility] 10/28/19 02:40
[2019-10-28] MEDS: Metoprolol 25 MG TAB 37.5 MG PO (20:23)
[2019-10-28] MEDS: Simvastatin 20 MG TAB PO (20:23)
--- NOTE | 2019-10-28 21:21 | PCNE_ITS ---
Date of service: 10/28/19 History of Present Illness History of Present Illness Chief Complaint: goals of care discussion, end-stage cardiomyopathy Narrative: I met with Mr Juan Antonio when he was being worked up for possible COVID- 19. He was in an isolation room. I spent most of my visit talking to his daughter, Ruth Cotto (Cindy) ([phone]). She is also his DPOA. She lives in a newly renovated apartment over his garage and checks on him for several hours each day. He eats MOW for lunch; she makes his other meals. Nurses report that he's been very anxious. He's been on benzodiazepines for years. His PCP was weaning him off them at the time of this acute illness. They were inadvertently restarted at his pre-wean doses. He's had several doses of diazepam. Juju reports that her father has been short of breath for a month. He doesn't have any significant pain, including chest pain. He's had no diaphoresis. He is very weak. His lips are always cyanotic, and when he's working hard, his face turns red. He does have an AICD in place. It has shocked him twice. He hates that. The first time he reports that it felt like he was going to from the pain. The second time was not as bad. He hopes he never has to experience a third time. Consults Consult date: 10/28/19 Requesting physician: Vanna Gar Assessment and Plan Assessment and plan (1) End stage congestive heart failure: Status: Chronic Assessment and plan: Maximal medical management. AICD in place. Still weakening. Started discussion on hospice vs palliative. Will try to strengthen first. Goal is to be at home when he dies. (2) Physical deconditioning: Status: Chronic Assessment and plan: TOo short of breath to do exercises on his own. W illing to do PT as inpatient and as outpt via . (3) POLST (Physician Orders for Life-Sustaining Treatment): Status: Acute Assessment and plan: Began discussion today. Not ready to sign yet. (4) Goals of care, counseling/discussion: Status: Chronic Assessment and plan: Wants to be home. Wants NOT to be shocked when he's actively dying. Discussed how to manage his AICD when/if he goes on hospice. (5) Frailty syndrome in geriatric patient: Status: Chronic Assessment and plan: Not able to recover from his recent hospitalizations/illnesses. (6) Palliative care patient: Status: Chronic (7) Dilated idiopathic cardiomyopathy: Status: Chronic Assessment and plan: Severe. Leaves him breathless and fatigued at all times. (8) Biventricular automatic implantable cardioverter defibrillator in situ: Status: Chronic Assessment and plan: Both afraid for it to go off and shock him again and to have it turned off and have no immediate safety plan. Ambivalent. (9) Anxiety: Status: Chronic Assessment and plan: His PCP has been trying to wean him off his benzos. Here, he's received the higher older doses he was on. (10) Blue lips: Status: Chronic Assessment and plan: Despite his cyanotic lips, his oxygen sats are often in the low to mid-90s. Review of Systems Constitutional Constitutional: Reports fatigue, Reports lethargy and Reports weakness Eyes Eyes: Reports requires corrective lenses ENT Ears, Nose, Mouth, and Throat: Reports dizziness and Reports disequilibrium Cardiovascular Cardiovascular: Reports irregular heart rhythm, Reports lightheadedness, Reports dyspnea, Reports dyspnea on exertion and Reports orthopnea Respiratory Respiratory: Reports dyspnea and Reports dyspnea on exertion Gastrointestinal Gastrointestinal: Reports constipation Genitourinary Genitourinary: Reports difficulty urinating Musculoskeletal Musculoskeletal: Reports abnormal gait, Reports atrophy and Reports muscle weakness Integumentary/Breasts Skin/Breast: Reports change in pigmentation (face often flushed) and Reports unusual bruising Neurologic Neurologic: Reports abnormal gait, Reports dizziness, Reports disequilibrium and Reports weakness Psychiatric Psychiatric: Reports difficulty concentrating Endocrine Endocrine: Reports fatigue Hematologic/Lymphatic Hematologic/Lymphatic: Reports easy bruising [facility] Medical History (Updated 01/10/20 @ 10:10 by Astrid Meyer MD) Anxiety (Chronic) Asthma (Chronic) Atrial fibrillation (Chronic) Blue lips (Chronic) Bronchiectasis (Acute 04/13/16) Chronic combined systolic and diastolic CHF (congestive heart failure) (Acute) Chronic fatigue (Chronic) Dilated idiopathic cardiomyopathy (Chronic) did not tolerate entresto. 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) Non-insulin dependent diabetes mellitus (Acute) Palliative care patient (Chronic) Peripheral edema (Acute) Physical deconditioning (Chronic) Pneumonia (Inactive) POLST (Physician Orders for Life-Sustaining Treatment) (Acute) [email or web address], signed 12/11/19 Positive blood culture (Inactive) Pulmonary hypertension (Chronic) Restless leg syndrome (Acute) Right lower lobe pneumonia (Inactive) 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 Cataracts bilaterally b. Inguinal hernia LEFT HEART CARDIAC CATH Pacemaker (Acute) Repair of inguinal hernia left Family History (Updated 12/11/19 @ 12:32 by Astrid Meyer MD) Father Heart disease Mother Heart disease Daughter No problems noted. Sister No problems noted. Social History (Updated 12/11/19 @ 12:32 by Astrid Meyer MD) Smoking/Tobacco Use Status: Never Alcohol Intake: never Drug use: Never Substance use type: does not use Caregiver/Support person: Yes Household members: children Housing: house Number of Children: 3 number of grandchildren: 6 Communication Needs: Hard of Hearing and Corrective Lenses Education Level: high school Do you need help understanding health information?: Always current occupation: retired Pets and animals: No Current gender identity: male What is your relationship status?: How often do you get together with friends or relatives?: three or more times per week Panel score (0-1 are the most socially isolated patients): 1 What type of physical activity do you participate in: none and sedentary lifestyle Special amanda needs: No Seatbelt use: always Working smoke detector in home: Yes Fire extinguisher in home: Yes Do you feel safe at home: Yes Do you feel safe in your relationship?: Yes Additional Social history: Daughter Juju and her live in apartment attached to house. Juju willing to sleep in the house if/when her father goes on hospice. Other siblings not involved in their dad's care. Juju with 2 grown children, both with children of their own and jobs. Srini' sister, age 80, willing to come sit with Srini but can't do much hands-on care given her age. Exam Const General: cooperative and no acute distress Nutritional Appearance: average body habitus Orientation: alert and oriented x3 HENMT Head: normocephalic and atraumatic Ears: hearing grossly normal bilaterally General nose exam: external nose normal Mouth: lip abnormal (cyanotic) Eyes Conjunctivae: conjunctivae normal Sclera: sclerae normal Resp Effort & Inspection: normal respiratory effort Auscultation: clear to auscultation bilaterally and diminished lung sounds Cardio Jugular venous pressure: no JVD Rhythm: other (Irreg rhythm) GI Palpation: soft Auscultation: normal bowel sounds Extrem General: normal exam except as noted and pedal edema (trace bilateral) Psych Appearance: grossly normal Speech and Movement: speech and movement normal Mood: congruent mood Affect: normal affect Attitude: cooperative Thought Process: normal Results Last Vital Signs Temp 96.8 F L 10/28/19 20:27 Pulse 73 10/28/19 20:27 Resp 20 10/28/19 20:27 BP 132/86 10/28/19 20:27 Pulse Ox 98 10/28/19 20:27 Labs Result diagrams: 11/10/19 06:00 11/12/19 06:10 Labs: Laboratory Results - last 24 hr 10/27/19 10/27/19 10/27/19 23:40 23:40 23:40 WBC 11.27 H RBC 4.08 L Hgb 14.6 Hct 43.4 MCV 106.4 H MCH 35.8 H MCHC 33.6 RDW 15.1 H Plt Count 161 MPV 11.2 H Immature Gran % 0.0 Neutrophils % 76.0 Lymphocytes % 14.0 Atypical Lymphs % 2 Monocytes % 8.0 Eosinophils % 0.0 Basophils % 0.0 Absolute Neutrophils 8.57 H Absolute Lymphocytes 1.80 Absolute Monocytes 0.90 H Absolute Eosinophils 0.00 Absolute Basophils 0.00 Nucleated RBCs Differential Comment Manual differential RBC Morphology See below Polychromasia Present Hypochromasia Anisocytosis Macrocytosis 3+ PT 39.0 H D INR 4.0 H D Sodium 137 Potassium 4.1 Chloride 98 Carbon Dioxide 30.1 Anion Gap 8.9 BUN 25 H Creatinine 1.52 H Estimated GFR/1.73 m2 44.69 Glucose 144 H Calcium 8.6 Magnesium 1.9 Troponin I 0.09 H* NT-Pro-B Natriuret Pep 8526 H Procalcitonin TSH Digoxin COVID-19 PCR Nasopharyn COVID-19 PCR Ref Test Perform Site 10/28/19 10/28/19 10/28/19 02:00 02:40 06:40 WBC RBC Hgb Hct MCV MCH MCHC RDW Plt Count MPV Immature Gran % Neutrophils % Lymphocytes % Atypical Lymphs % Monocytes % Eosinophils % Basophils % Absolute Neutrophils Absolute Lymphocytes Absolute Monocytes Absolute Eosinophils Absolute Basophils Nucleated RBCs Differential Comment RBC Morphology Polychromasia Hypochromasia Anisocytosis Macrocytosis PT INR Sodium 137 Potassium 3.2 L Chloride 100 Carbon Dioxide 29.0 Anion Gap 8.0 BUN 27 H Creatinine 1.37 H Estimated GFR/1.73 m2 50.39 Glucose 191 H Calcium 8.8 Magnesium 2.0 Troponin I 0.09 H* 0.10 H* NT-Pro-B Natriuret Pep Procalcitonin TSH 1.16 Digoxin 0.71 L COVID-19 PCR Negative Nasopharyn COVID-19 PCR Not Applicable Ref Test [facility] 10/28/19 10/28/19 06:40 06:40 06:40 WBC 10.60 RBC 3.96 L Hgb 14.3 Hct 42.0 MCV 106.1 H MCH 36.1 H MCHC 34.0 RDW 15.0 H Plt Count 168 MPV 11.3 H Immature Gran % 0.0 Neutrophils % 68.0 Lymphocytes % 25.0 Atypical Lymphs % Monocytes % 5.0 Eosinophils % 2.0 Basophils % 0.0 Absolute Neutrophils 7.21 H Absolute Lymphocytes 2.65 Absolute Monocytes 0.53 Absolute Eosinophils 0.21 Absolute Basophils 0.00 Nucleated RBCs 2 Differential Comment Manual differential RBC Morphology See below Polychromasia Present Hypochromasia 2+ Anisocytosis 1+ Macrocytosis 2+ PT 41.7 H INR 4.3 H* Sodium Potassium Chloride Carbon Dioxide Anion Gap BUN Creatinine Estimated GFR/1.73 m2 Glucose Calcium Magnesium Troponin I NT-Pro-B Natriuret Pep Procalcitonin 0.2 TSH Digoxin COVID-19 PCR Nasopharyn COVID-19 PCR Ref Test Perform Site 10/28/19 10:43 WBC RBC Hgb Hct MCV MCH MCHC RDW Plt Count MPV Immature Gran % Neutrophils % Lymphocytes % Atypical Lymphs % Monocytes % Eosinophils % Basophils % Absolute Neutrophils Absolute Lymphocytes Absolute Monocytes Absolute Eosinophils Absolute Basophils Nucleated RBCs Differential Comment RBC Morphology Polychromasia Hypochromasia Anisocytosis Macrocytosis PT INR Sodium Potassium Chloride Carbon Dioxide Anion Gap BUN Creatinine Estimated GFR/1.73 m2 Glucose Calcium Magnesium Troponin I 0.07 NT-Pro-B Natriuret Pep Procalcitonin TSH Digoxin COVID-19 PCR Nasopharyn COVID-19 PCR Ref Test Perform Site
[2019-10-28] MEDS: diazePAM 2 MG TAB 1 MG PO (22:07)
[2019-10-28] MEDS: rOPINIRole 0.5 MG TAB PO (22:07)
[2019-10-29] MEDS: Albuterol HFA 8 GM 60 PUFF INH IH ×2 (01:58→07:43)
[2019-10-29 03:13] VITALS: BP 123/90; PULSE 76; RESP 18; TEMP 35.6; O2SAT 97
[2019-10-29 07:26] LABS: INR 3.8 (0.9-1.1); Prothrombin Time 36.5 sec (9.3-11.0)
[2019-10-29 07:34] VITALS: BP 122/73; PULSE 82; RESP 20; TEMP 36.8; O2SAT 94
[2019-10-29 07:36] LABS: Anion Gap 9.1 mmol/L (3-11); BUN 29 mg/dL (7-18); CO2 27.9 mmol/L (21.0-32.0); CREATININE 1.52 mg/dL (0.70-1.30); Chloride 98 mmol/L (98-107); Estimated GFR 44.69 (mL/min/1.73m2); Glucose 167 mg/dL (74-106); Magnesium 1.9 mg/dL (1.8-2.4); NT-proBNP 6779 pg/mL (<300); Sodium 135 mmol/L (136-145)
[2019-10-29 07:37] LABS: Troponin I 0.09 ng/mL (<0.06)
[2019-10-29] MEDS: Lidocaine 5% Patch 2 PATCH TP (07:45)
[2019-10-29] MEDS: Acetaminophen 325 MG TAB PO ×4 (07:46→20:50)
[2019-10-29 07:47] VITALS: PULSE 78
[2019-10-29] MEDS: Digoxin 0.125 MG TAB PO (07:47)
[2019-10-29] MEDS: Spironolactone 50 MG TAB PO (07:47)
[2019-10-29] MEDS: Allopurinol 300 MG TAB PO (07:47)
[2019-10-29] MEDS: DULoxetine 20 MG CAP PO (07:48)
[2019-10-29] MEDS: Metoprolol 25 MG TAB 37.5 MG PO ×2 (07:48→20:50)
[2019-10-29] MEDS: predniSONE 5 MG TAB PO (07:48)
[2019-10-29] MEDS: Furosemide 40 MG/4 ML VIAL IVP (07:48)
[2019-10-29] MEDS: Insulin Aspart 300 UNITS/3 ML PEN SC ×4 (07:50→20:51)
[2019-10-29] MEDS: Normal Saline Flush 10 ML SYR IVP (07:54)
[2019-10-29] MEDS: Ipratropium/Albuterol 4 GM 120 PUFF INH IH ×3 (07:57→20:52)
--- NOTE | 2019-10-29 08:00 | DI.US_ITS ---
EXAM: US EXTREMITY VENOUS BI CLINICAL HISTORY: BLE edema, concern for DVT. TECHNIQUE: Bilateral lower extremity venous ultrasound performed using grayscale, color-flow, and sp ectral Doppler analysis. COMPARISON: No exams were available for comparison FINDINGS: The bilateral common femoral, femoral and popliteal veins demonstrate normal compressibility, augment ation, and color Doppler. The posterior tibial veins are patent. No superficial thrombophlebitis or Aguiar's cyst is seen. IMPRESSION: Right: Negative for DVT Left: Negative for DVT DATA REPOSITORY:
[2019-10-29] MEDS: diazePAM 2 MG TAB PO ×2 (10:24→20:50)
[2019-10-29] MEDS: metOLazone 2.5 MG TAB 5 MG PO (10:25)
--- NOTE | 2019-10-29 11:12 | DI.US_ITS ---
APPROVED REPORT EXAM: Comprehensive 2D, Doppler, and color-flow Echocardiogram Patient Location: In-Patient Room/Bed: 216 Neck Skewer: Kalli Garcia RDCS (AE) Indications: CHF Other Information Study Quality: Fair Conclusion Left Ventricle : Left ventricle is borderline dilated. Left ventricular systolic function is severely decreased. There is normal left ventricular wall thickness. There are left ventricular wall motion abnormalities as diagrammed. Transmitral Doppler flow pattern suggests impaired LV relaxation. LVEF i s <20% Right Ventricle : Right ventricle is severely dilated. Right ventricular systolic function is severel y reduced. The RVSP is 45mmHg. Atria : Left atrium is moderately dilated. Right atrium is severely dilated. Aortic Valve : Aortic valve is trileaflet. There is no aortic valvular stenosis. Mitral Valve : There is mitral annular calcification. No evidence of mitral valve stenosis. Moderate to severe mitral regurgitation Great Vessels : The aortic root is normal in size. The IVC collapses <50% with inspiration. The ascen ding aorta is normal in size. Aortic arch is not well visualized. Compared to echocardiogram from 12/26/2016: Ejection fraction has decreased slightly and mitral regurg itation has worsened. Wall motion Left Ventricle Left ventricle is borderline dilated. Left ventricular systolic function is severely decreased. There is normal left ventricular wall thickness. There are left ventricular wall motion abnormalities as d iagrammed. Transmitral Doppler flow pattern suggests impaired LV relaxation. There is no ventricular septal defect visualized. LVEF is <20% Right Ventricle Right ventricle is severely dilated. Right ventricular systolic function is severely reduced. The RVS P is 45mmHg. Device lead is present in the right ventricle. Atria Left atrium is moderately dilated. Right atrium is severely dilated. The interatrial septum is intact with no evidence for an atrial septal defect. Aortic Valve Aortic valve is trileaflet. There is no aortic valvular stenosis. Trace aortic regurgitation. Mitral Valve There is mitral annular calcification. No evidence of mitral valve stenosis. Moderate to severe nahomy l regurgitation Tricuspid Valve The tricuspid valve is normal in structure. There is no tricuspid valve stenosis. Trace to mild tricu spid regurgitation. Pulmonic Valve The pulmonary valve is normal in structure. There is no pulmonic valvular stenosis. Trace pulmonic re gurgitation. Great Vessels The aortic root is normal in size. The ascending aorta is normal in size. Aortic arch is not well vis ualized. The IVC collapses <50% with inspiration. Pericardium There is no pericardial effusion. 2D Dimensions IVSD d PLAX 0.99 cm M: 0.6-1.2 LV Vol A2C d MOD 110.5 mL LVPW d PLAX 1.05 cm M: 0.6 - 1.2 LV Vol A4C d MOD 129.9 mL LVID d PLAX 5.81 cm M: 4.2 - 5.8 LA vol/ BSA A2C s A-L 37.9 mL/m2 LVDs 5.50 cm M: 2.5 - 4.0 LA vol/ BSA A4C s A-L 41.0 mL/m2 Ao Root d 3.12 cm M: 3.1 - 3.7 LA Vol/ BSA Biplane s A-L 39.8 mL/m2 RA Area A4C 30.55 cm2 LA Area A4C s MOD 24.65 cm2 RA Vol/ BSA A4C s A-L 66.3 mL/m2 LA Area A2C s MOD 23.48 cm2 Ao Asc Diam d 3.15 cm M: 2.6 - 3.4 LV EF A4C MOD 11.0 % LV EF Teichholz 11.3 % LV EF A2C MOD 12.6 % LVEF (Mcdonald's) 11.25 % M: 52 - 72 LV EF Biplane MOD 11.2 % LV Volume 93.41 mL M: 62 - 150 SV 13.94 mL LV Volume Index 47.41 mL/m2 M: 34 - 74 SV Index 7.06 mL/m2 LV Vol Biplane MOD 124.0 mL FS 5.05 % M-Mode TAPSE 1.89 cm (M/F) >1.7 LV Diastology MV E' lateral 0.064 (>0.1 m/s) MV E Vmax 0.92 (0.4-1.3 m/s) LV E/e LAT 14.50 (<14) MV E/E' lateral 14.54 Aortic Valve LVOT Area 3.24 cm2 AoV Area Vmax 2.21 cm2 LVOT Vmax 0.59 m/s AoV Area/ BSA (Vmax) 1.12 cm2/m2 LVOT Mean Nelson. 0.43 m/s BETO Mean Nelson. 2.03 cm2 LVOT Peak Grad 1.4 mmHg BETO Mean Nelson. Index 1.03 cm2/m2 LVOT Mean Grad 0.8 mmHg AR DT 2976 msec LVOT VTI 0.097 m AR PHT 863 msec LVOT Diam s 2.00 cm AoV Vmax 0.87 m/s Velocity Ratio 0.67 AoV Mean Nelson. 0.69 m/s AoV Peak Grad 3.0 mmHg LVOT SV 31.50 mL AoV Mean Grad 2.0 mmHg AoV VTI 0.155 m AoV Area VTI 2.03 cm2 AoV Area/ BSA (VTI) 1.03 cm/m2 Mitral Valve MV DT 157 (160-240 msec) MR Vmax 3.94 m/s MV PHT 46 msec MR VTI 1.098 m MV Area PHT 4.82 cm2 MR Peak Grad 62.0 mmHg MR Mean Grad 41.6 mmHg MR PISA Radius 0.74 cm MR EROA 0.31 cm2 MR Aliasing Velocity 0.35 m/s MR PISA 3.48 cm2 Pulmonary Valve PV Vmax 0.67 (0.5-1.5 m/s) RVOT Peak Gr. 0.74 mmHg PV Peak Grad 1.8 mmHg RVOT Mean Gr. 0.35 mmHg PV Mean Grad 0.9 mmHg RVOT VTI 0.063 m PV VTI 0.105 m RVOT Vmax 0.43 m/s Tricuspid Valve TR Peak Grad 37.0 mmHg TR Vmax 3.04 m/s RA Pressure 8.00 mmHg RVSP (TR) 45.0 mmHg
--- NOTE | 2019-10-29 12:50 | PGE_ITS ---
Date of Service Date of service: 10/29/19 Time of Service: 12:50 Assessment and Plan Assessment and plan (1) Acute on chronic combined systolic (congestive) and diastolic (congestive) heart failure: Status: Acute Assessment and plan: He still remains edematous and has had an intake adequate response to IV Lasix push every 12 hours and for that reason I have put him on Lasix drip and added Zaroxolyn to his regimen. His repeat proBNP remains elevated at over 6000. His repeat troponin this morning remains at 0.09. His weight remains elevated and unchanged at 90.3 kg. (2) Elevated troponin: Status: Acute Assessment and plan: His troponin remains slightly elevated but I still feel this is due to stress from his heart rhythm and his CHF and not due to an acute myocardial coronary event.. (3) Pulmonary hypertension: Status: Chronic Assessment and plan: Known problem. I am unable to see any sleep studies in the system. Diurese, monitoring I/O's and daily weights. Consider trilogy vs sleep study. (4) REI (acute kidney injury): Status: Acute Assessment and plan: Acute on chronic kidney failure probably secondary to cardiorenal syndrome. Hopefully with adequate diuresis we will see an improvement in renal blood flow and improvement in his creatinine. (5) AF (paroxysmal atrial fibrillation): Status: Chronic Assessment and plan: INR remains elevated at 3.8. Warfarin remains on hold at this time. Review of his rhythm he appears to be mostly ventricular paced beats at this time. I have increased his metoprolol to 37.5 mg twice a day to control his A. fib rate. Interrogation of his pacer AICD yesterday revealed that he had had frequent atrial dysrhythmias. He also had some ventricular dysrhythmias but none of which reached a threshold for antitachycardia pacemaking nor has he required any cardioversion since 2018. (6) Dilated idiopathic cardiomyopathy: Status: Chronic Assessment and plan: Negative MPI in 2017. Considered nonischemic in etiology. Repeat Echo. This was ordered by the admitting hospitalist night before last but still has not been performed Diurese as above (7) COPD (chronic obstructive pulmonary disease): Status: Acute Assessment and plan: Continue prednisone; schedule combivent with prn albuterol (8) Non-insulin dependent diabetes mellitus: Status: Acute Assessment and plan: Cover with SSI (9) Supratherapeutic INR: Status: Acute Assessment and plan: hold coumadin and recheck daily (10) Ambulatory dysfunction: Status: Acute Assessment and plan: Exacerbated by recent fall and right hip contusion. X-ray of his hip showed no fracture. Will request physical therapy to see him in the morning now that his COVID-19 test is negative. (11) DVT prophylaxis: Status: Acute Assessment and plan: INR supratherapeutic on coumadin continue to hold Coumadin until INR is below 4. (12) Discharge planning issues: Status: Acute Assessment and plan: DNI, not DNR Palliative care saw the patient yesterday and feels there is some component of anxiety. I have written for as needed diazepam. Plan will be discharged home to the care of his daughter once he is euvolemic. Subjective Subjective Interval history since last seen: Irineo denies any chest pain or pressure. He still gets dyspneic with any current effort. He is not been responding adequately to the scheduled dose of IV Lasix therefore put him on a Lasix drip this morning and give him a dose of Zaroxolyn. He has been incontinent of urine this morning and for this reason I have asked nursing to put a Fitzpatrick catheter. His right hip remains sore but is able to ambulate with assistance on that leg. Per my exam yesterday there is no exquisite tenderness with internal and external rotation and with a negative x-ray I doubt that there is a fracture. However if he continues having pain we may need to CT scan that hip to rule out a hairline fracture. Exam Narrative Exam Narrative: Obese male sitting up at the bedside in no acute distress however with any kind of activity such as moving from the bed to the chair he gets out of breath. Chest is barrel chested lungs revealed bibasilar rales posteriorly no rhonchi or wheezing. Heart is irregular but at a controlled rate. Abdomen is obese soft and nontender. Back exam reveals ecchymosis over the right scapula. There is also an abrasion over the same area. There is no drainage. The abrasion is superficial. Lower extremities with 2-3+ pitting edema bilaterally over the feet ankles and pretibial area up to the knees. Objective Objective Clinical Data: Abnormal lab results 10/29/19 10/29/19 Range/Units 07:05 07:05 PT 36.5 H (9.3-11.0) sec INR 3.8 H (0.9-1.1) Sodium 135 L (136-145) mmol/L BUN 29 H (7-18) mg/dL Creatinine 1.52 H (0.70-1.30) mg/dL Glucose 167 H (74-106) mg/dL Troponin I 0.09 H* (<0.06) ng/mL NT-Pro-B Natriuret Pep 6779 H (<300) pg/mL Vital Signs Temperature 36.8 C 10/29/19 07:34 Temperature Source Tympanic 10/29/19 07:34 Pulse 78 10/29/19 07:47 Pulse Rhythm Irregular 10/29/19 09:45 Respiratory Rate 20 10/29/19 07:34 Respiratory Effort 10/29/19 09:45 Respiratory Depth Normal 10/29/19 01:50 Respiratory Pattern Normal 10/29/19 01:50 Blood Pressure 122/73 10/29/19 07:34 Blood Pressure Position Supine 10/27/19 23:23 Pulse Oximetry 94 L 10/29/19 07:34 Oxygen Delivery Method Room Air 10/29/19 07:34 Oxygen Flow Rate 0 10/29/19 07:34 Pain Level 5 10/29/19 12:28 Comment 10/28/19 04:20 Intake & Output 10/28/19 10/29/19 10/29/19 23:59 11:59 23:59 Intake Total 800 / 1370 250 / 250 Output Total 600 / 1550 670 / 670 Balance 200 / -180 -420 / -420 Weight 90.3 kg Intake: IV 20 / 170 10 / 10 Oral 780 / 1200 240 / 240 Output: Urine 600 / 1550 670 / 670 Other: Urine Color Yellow Light Livier Urine Appearance Clear Clear Urine Odor None None Comment patient tired to pass urine was unable to. Bladder scanned for the mentioned above patient tried to pass urine same unsuccessful subsequently bladder scan was done with the above amount. Voiding Methods Toilet Urinal Laboratory Results WBC 10.60 k/cumm (4.4-10.8) 10/28/19 06:40 RBC 3.96 m/cumm (4.50-6.00) L 10/28/19 06:40 Hgb 14.3 g/dL (13.5-17.5) 10/28/19 06:40 Hct 42.0 % (40.0-50.0) 10/28/19 06:40 MCV 106.1 fL (80-95) H 10/28/19 06:40 MCH 36.1 pg (27.0-33.0) H 10/28/19 06:40 MCHC 34.0 g/dL (32.0-36.0) 10/28/19 06:40 RDW 15.0 % (11.8-14.1) H 10/28/19 06:40 Plt Count 168 x1000/uL (130-400) 10/28/19 06:40 MPV 11.3 fL (8.0-11.0) H 10/28/19 06:40 Immature Gran % 0.0 % 10/28/19 06:40 Neutrophils % 68.0 10/28/19 06:40 Lymphocytes % 25.0 10/28/19 06:40 Atypical Lymphs % 2 10/27/19 23:40 Monocytes % 5.0 10/28/19 06:40 Eosinophils % 2.0 10/28/19 06:40 Basophils % 0.0 10/28/19 06:40 Absolute Neutrophils 7.21 k/cumm (1.2-6.7) H 10/28/19 06:40 Absolute Lymphocytes 2.65 k/cumm (1.2-3.4) 10/28/19 06:40 Absolute Monocytes 0.53 k/cumm (0.11-0.7) 10/28/19 06:40 Absolute Eosinophils 0.21 k/cumm (0.0-0.7) 10/28/19 06:40 Absolute Basophils 0.00 k/cumm (0.0-0.2) 10/28/19 06:40 Nucleated RBCs 2 /100WBC 10/28/19 06:40 Differential Comment Manual differential 10/28/19 06:40 RBC Morphology See below 10/28/19 06:40 Polychromasia Present 10/28/19 06:40 Hypochromasia 2+ 10/28/19 06:40 Anisocytosis 1+ 10/28/19 06:40 Macrocytosis 2+ 10/28/19 06:40 PT 36.5 sec (9.3-11.0) H 10/29/19 07:05 INR 3.8 (0.9-1.1) H 10/29/19 07:05 Sodium 135 mmol/L (136-145) L 10/29/19 07:05 Potassium 5.0 mmol/L (3.5-5.1) D 10/29/19 07:05 Chloride 98 mmol/L (98-107) 10/29/19 07:05 Carbon Dioxide 27.9 mmol/L (21.0-32.0) 10/29/19 07:05 Anion Gap 9.1 mmol/L (3-11) 10/29/19 07:05 BUN 29 mg/dL (7-18) H 10/29/19 07:05 Creatinine 1.52 mg/dL (0.70-1.30) H 10/29/19 07:05 Estimated GFR/1.73 m2 44.69 (mL/min/1.73m2) 10/29/19 07:05 Glucose 167 mg/dL (74-106) H 10/29/19 07:05 Calcium 9.0 mg/dL (8.5-10.1) 10/29/19 07:05 Magnesium 1.9 mg/dL (1.8-2.4) 10/29/19 07:05 Troponin I 0.09 ng/mL (<0.06) H* 10/29/19 07:05 NT-Pro-B Natriuret Pep 6779 pg/mL (<300) H 10/29/19 07:05 Procalcitonin 0.2 ng/mL 10/28/19 06:40 TSH 1.16 uIU/mL (0.36-3.74) 10/28/19 06:40 Digoxin 0.71 ng/mL (0.90-2.00) L 10/28/19 06:40 COVID-19 PCR Negative (Negative) 10/28/19 02:40 Nasopharyn COVID-19 PCR Not Applicable 10/28/19 02:40 Ref Test Perform Site [facility] lab 10/28/19 02:40
--- NOTE | 2019-10-29 13:05 | W.INDIABCONS ---
Date of service: 10/29/19 Time of Service: 13:05 Diabetes Inpatient Consult DESCRIPTION/ASSESSMENT: 79 year old male admitted with CHF,edema and COPD with chronic steriod use. Home mets include metformin 500 mg qd prednison. Recent A1C = 8.4% (08/27/19) indicates poorly controlled DM in previous monthly but related to on going steriod use necessary to control COPD. BMI 31 indicates obesity. Blood sugars well managemed with current insulin regime. Meds include novolog SS, lasix. Met with Srini today as received DM inpatient consult. Srini had flat affect and was not interested to discuss diabetes management at this time. Provided literature and my contact information for future needs. At risk for dehydration as on diuertic, encouraged fluid intake. INTERVENTION: Provided education on DM including Hyper/hypoglycemia s/s with action plan for each scenario. Definition and types of CHO with examples, CHO counting, DASH diet materials, DM meal planning and label reading literature. Provided a blood sugar and food record chart and materials to reiterate CHO counting techniques. Reviewed desirable BG levels with patient with food choices and portions for optimal outcomes. Provided contact information for this RD and encouraged him to call with any f/u questions r/t to DM self management. CDM from kitchen has been helping to count CHO's and achieve intake of ~65g/CHO per meal period. PLAN: Continue Diabetic Diet and current insulin regime Time Spent in Nutritional Counseling and Treatment: 10 min
--- NOTE | 2019-10-29 13:16 | IN_ITS ---
Date of service: 10/29/19 Time of Service: 13:16 PT Notes Visit Reasons: RLL PNA,ACUTE EXACERBATION OF CHRONIC COMBINED CHF Physical Therapy Inpatient Initial Evaluation Date: 10/29/2019 Referring Doctor: Vanna Gar MD PT Orders: PT CONSULT: Limited ability Precautions: Fall. Standard. Activity as tolerated. Patient Profile/Admitting Diagnosis: Srini is a 79-year-old male who presented to the ED on a 10/27/2019 with a chief complaint of increasing shortness of breath that started 2 days prior to admission. Patient is diagnosed with acute on chronic combined systolic and diastolic CHF with EF of 20-25%, right lower lobe pneumonia, elevated troponin, acute kidney injury, asymmetric edema to BLE, COPD and IDDM, therapeutic INR and ambulatory dysfunction with referral to services to address functional mobility decline. PMHX: Medical History Asthma (Chronic) Atrial fibrillation (Chronic) Bronchiectasis (Acute 04/13/16) Chronic combined systolic and diastolic CHF (congestive heart failure) (Acute) Chronic fatigue (Acute) Dilated idiopathic cardiomyopathy (Chronic) did not tolerate entresto. 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 Cataracts bilaterally b. Inguinal hernia LEFT HEART CARDIAC CATH Pacemaker (Acute) Repair of inguinal hernia left Social History/Home Situation: Srini lives alone on the ground floor of an apartment building with 1 step to enter without rails. Daughter and daughter's family live upstairs and have been providing all needed assistance for patient. Srini is independent with all mobility ADL performance not needing an assistive device in the morning but consistently has been weak later in the afternoon requiring him to use a front wheeled walker. He states that although he has a license to drive, he has not done so much recently. Equipment Owned/DME: Front-wheeled walker Subjective: Patient is firm that he will not be able to do much for this consult as he had a couple of tests that he needed to go downstairs for and is now very exhausted. He did emphasize that this morning he was able to walk from bedside to the bath room using the walker with assistance of an BROADCAST TECHNICIAN. He indicates that his daughter has been very helpful with everything he needs at home. Patient states that he uriarte fallen twice in the past 12 months. Objective: General Observation: Obese. IV in the right UE. Swelling to B UE and LE with right side more affected than the left. Oxygen supplementation on. Telemetry monitoring in place. Mental Status: Alert and oriented x 4 Pain: Reports soreness on the right shoulder as well as on long white leg from his most recent fall ROM: Right Upper Extremity: Shoulder Flexion WFL. Shoulder abduction WFL. Elbow flexion WFL. Wrist flexion WFL. Opening and closing of hand WFL. Left Upper Extremity: Shoulder Flexion WFL. Shoulder abduction WFL. Elbow flexion WFL. Wrist flexion WFL. Opening and closing of hand WFL. Right Lower Extremity: Hip flexion WFL. Hip abduction WFL. Knee flexion WFL. Ankle dorsiflexion WFL. Ankle plantarflexion WFL. Left Lower Extremity: Hip flexion WFL. Hip abduction WFL. Knee flexion WFL. Ankle dorsiflexion WFL. Ankle plantarflexion WFL. Strength: Right Upper Extremity: Shoulder flexors 4/5. Shoulder abductors 4/5. Elbow flexors 4/5. Elbow extensors 4/5. Talent Acquisition Relationship Manager strong. Left Upper Extremity: Shoulder flexors 4/5. Shoulder abductors 4/5. Elbow flexors 4/5. Elbow extensors 4/5. Talent Acquisition Relationship Manager strong. Right Lower Extremity: Hip flexors 4/5. Hip abductors 4/5. Knee flexors 4/5. Knee extensors 4/5. Ankle dorsiflexors 4/5. Ankle plantarflexors 4/5. Left Lower Extremity:Hip flexors 4-/5. Hip abductors 4-/5. Knee flexors 4-/5. Knee extensors 4-/5. Ankle dorsiflexors 4/5. Ankle plantarflexors 4/5. Sensation: Intact as to pain and pressure on bilateral lower extremities. Bed Mobility/Transfers: Sit to supine minimal assist to L LE Sit to stand minimal assist with cues for hand placement, needs FWW Stand to sit minimal assist with cues for hand placement Bed to chair minimal assist with cues for hand placement, needs FWW Chair to bed minimal assist with cues for hand placement, needs FWW Gait: Patient indicated that he walked to the bathroom early this morning with nursing staff and managed well with minimal assist. With PT for this evaluation, patient refused any further mobility assessment other than standing from the edge of bed Balance: Static Sitting: Normal Dynamic Sitting: Normal Static Standing: Fair Dynamic Standing: Fair Special Tests: Mobility Limitations Standardized Measure [facility]-P[facility] 6 clicks Basic Mobility Inpatient Short Form: Raw Score: 17 CMS Score: 51% deficit Informed Consent/Education: Patient instructed in purpose of PT consult and plan of care. Assessment: Patient demonstrates functional mobility decline requiring the use of walker for all mobility ADL performance, strength impairments, balance limitations, and endurance deficits resulting from admitting diagnoses. Srini is a 79-year-old male who presented to the ED on a 10/27/2019 with a chief complaint of increasing shortness of breath that started 2 days prior to admission. Patient is diagnosed with acute on chronic combined systolic and diastolic CHF with EF of 2025%, right lower lobe pneumonia, elevated troponin, acute kidney injury, asymmetric edema to BLE, COPD and IDDM, therapeutic INR and ambulatory dysfunction with referral to services to address functional mobility decline. Patient presents with clinical signs and symptoms consistent with current/admitting diagnoses that have resulted to mobility limitations, gait instability, generalized weakness, and impairment of motor control as demonstrated by the following impairment level findings: 1. Decreased strength to B UE/LE major muscle groups 2. Impaired sitting/standing balance 3. Impaired activity tolerance Impairments are contributing to the following functional limitations: 1. Increased dependence with transfers 2. Inability to safely ambulate without assistive device and physical assistance 3. Increase completion time for mobility ADL performance 4. Increased fall risk 5. Inability to negotiate steps alone safely Patient is assessed as a 43875 moderate complexity based on the following: History: 79-year-old male with impairment level findings, functional limitations, and past medical history as indicated above Examination: Demonstrable impairment in strength, balance, and mobility level with underlying impairments and functional limitations as documented above Presentation:Evolving Decision Makin moderate complexity Goals: Goals X1 week 1. Supine-Sit independent 2. Sit-Supine independent 3. Sit-Stand independent 4. Stand-Sit independent 5. Bed-Chair independent 6. Chair-Bed independent 7. Independent gait on level surface with use of least restrictive device for at least 300 feet without report of pain nor dyspnea 8. Independent stair negotiation while holding onto bilateral rails for at least 10 steps without report of pain nor dyspnea 9. Independent with home exercise program 10. Good static and dynamic standing balance/tolerance Plan of Care/Treatment Plan: 1-2x/day, 7 days/week x 1 week. Plan of care has been reviewed with the SWITCH BOX INSTALLER providing the service under Physical Therapy direction. Initiate Physical Therapy intervention for strengthening, bed mobility, transfers, gait, stairs, balance training, use of assistive device. DISCHARGE RECOMMENDATIONS: Patient will benefit from home health PT services in order to progress mobility level using least restrictive assistive ambulatory device, assess home safety, identify additional equipment needs, and establish a functional maintenance program that will increase ability of patient to remain at home. Will benefit from OT services under acute care level in order to determine self-care adaptive equipment needs for energy conservation. No equipment needs at this time. TREATMENT CODE/TIME: [id number] x 25 minutes beginning at 13:16 PM. Thank you very much for this referral. Beverley Cisneros PT, DPT, CLT [facility] [place], [place]
--- NOTE | 2019-10-29 14:13 | W.SPEECHNOTE ---
Date of service: 10/29/19 Time of Service: 12:00 Speech Therapy Visit Note Note: Bedside swallow screen completed with pt today. 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 Lingual strength and ROM was informally assessed, which appeared WFL. He reports brushing his teeth twice a day and maintaining adequate oral hygiene. Pt managed thin liquids and a cracker without overt s/s of aspiration. He exhibited adequate mastication and oral management. Pt uses supplemental O2 at home and was receiving via nasal cannula today. Pt became short of breath while working with us, but was observed to take slow and deep breaths to regulate. Pt denies becoming short of breath when eating, however, he was provided with recommendations to increase coordination of respiration and eating to include taking breaks between bites to regulate breathing, taking small bites, and modifying textures as needed to reduce mastication demands/reduce fatigue across meals in order to reduce risks for aspiration. Pt acknowledged recommendations given today. These were also communicated to the medical team. Charge Code: [id number] charge (seen only/screen)
[2019-10-29 15:45] VITALS: BP 121/80; PULSE 52; RESP 18; TEMP 35.9; O2SAT 97
--- NOTE | 2019-10-29 16:41 | CMPROGNOTE_ITS ---
- If Service Date Differs Date of service: 10/29/19 Time of Service: 16:41 Care Management Progress Note S/O: Srini was sitting up on the edge of his bed when CM met with him. He reported that he was starting to feel better. CM spoke with his daughter, Juju Cotto regarding visitation, as she is his primary support. CM discussed this with the RN supervisor type disk quality control as well as the MD, who both reported that it is reasonable for her to visit. CM will continue to follow. A: Srini is a 79 year old male admitted to [facility] on 10/27/19 for CHF exacerbation. P: Anticipate Srini will return home when medically cleared. He may need additional support in the home, although his daughter, Juju lives in an apartment above his garage, and is very supportive. He will follow up with his PCP and discharge plan of care. His daughter will drive him home when ready. CM will continue to follow.
[2019-10-29 19:00] VITALS: BP 127/82; PULSE 60; RESP 18; TEMP 35.9; O2SAT 96
[2019-10-29] MEDS: Simvastatin 20 MG TAB PO (20:50)
[2019-10-29] MEDS: rOPINIRole 0.5 MG TAB PO (20:53)
[2019-10-29 23:20] VITALS: BP 148/77; PULSE 57; RESP 16; TEMP 36.2; O2SAT 95
[2019-10-30] VITALS (8 sets, daily range): BP systolic 106–136; BP diastolic 72–86; PULSE 58–130; RESP 17–20; TEMP 35.2–37.1; O2SAT 93–98
[2019-10-30] MEDS: Acetaminophen 325 MG TAB PO ×2 (03:59→10:54)
[2019-10-30 07:01] LABS: INR 3.1 (0.9-1.1); Prothrombin Time 30.7 sec (9.3-11.0)
[2019-10-30] MEDS: Ipratropium/Albuterol 4 GM 120 PUFF INH IH ×4 (07:42→20:12)
[2019-10-30] MEDS: Spironolactone 50 MG TAB 100 MG PO (07:46)
[2019-10-30] MEDS: Digoxin 0.125 MG TAB PO (07:46)
[2019-10-30] MEDS: predniSONE 5 MG TAB PO (07:46)
[2019-10-30] MEDS: Allopurinol 300 MG TAB PO (07:46)
[2019-10-30] MEDS: Lidocaine 5% Patch 2 PATCH TP (07:48)
[2019-10-30] MEDS: Metoprolol 25 MG TAB 37.5 MG PO ×2 (07:48→20:06)
[2019-10-30 07:57] LABS: Anion Gap 13.3 mmol/L (3-11); BUN 35 mg/dL (7-18); CO2 25.7 mmol/L (21.0-32.0); CREATININE 1.46 mg/dL (0.70-1.30); Calcium 9.5 mg/dL (8.5-10.1); Chloride 95 mmol/L (98-107); Estimated GFR 46.82 (mL/min/1.73m2); Glucose 139 mg/dL (74-106); NT-proBNP 7758 pg/mL (<300); Potassium 3.6 mmol/L (3.5-5.1); Sodium 134 mmol/L (136-145); Troponin I 0.09 ng/mL (<0.06)
[2019-10-30] MEDS: metOLazone 2.5 MG TAB 5 MG PO (08:55)
[2019-10-30] MEDS: DULoxetine 20 MG CAP PO (08:57)
--- NOTE | 2019-10-30 10:35 | DI.CT_ITS ---
EXAM: CT PELVIC WO CLINICAL HISTORY: right hip pain s/p fall. TECHNIQUE: Imaging Protocol: Axial computed tomography images with coronal and sagittal reformatted images were created and reviewed. CONTRAST MATERIAL: Noncontrast COMPARISON: CR,XR XR HIP RT COMPLETE AP PELVIS from 10/21/2019 FINDINGS: Bladder: Symmetric distention, no gross wall thickening. Bowel: There is diverticulosis without evidence of diverticulitis. The appendix appears normal. No obstruction or bowel wall thickening. Peritoneal cavity: No ascites, collection or mesenteric inflammatory response. Fatty containing right inguinal hernia. Left lower quadrant spigelian hernia containing a small loop of lower descending colon. The prostate is normal in size. Bones: There is no evidence of fracture or hip dislocation. The SI joints and pubic symphysis are no t widened. There is acetabular spurring and spurring from the greater trochanters. There is some [place] bridging of the SI joints. Severe degenerative disc changes are seen at L5-S1. IMPRESSION: left lower quadrant spigelian hernia containing Nonobstructed loop of colon. No acute bony abnormal ity. RADIATION DOSE DELIVERED: 376.79mGy.cmTotal DLP DATA REPOSITORY: All CT scans at this facility are submitted to the National Radiology Data Registry (NRDR) Dose Index Registry (DIR) with the [employer] (A[employer]). RADIATION OPTIMIZATION: All CT scans at this facility use at least one of these dose optimization te chniques: automated exposure control; mA and/or kV adjustment per patient size (includes targeted exa ms where dose is matched to clinical indication); or iterative reconstruction.
[2019-10-30] MEDS: Insulin Aspart 300 UNITS/3 ML PEN SC ×3 (12:06→22:25)
--- NOTE | 2019-10-30 12:45 | W.PM.PROGNOT ---
Date of Service Date of service: 10/30/19 Time of Service: 12:46 Assessment and Plan Assessment and plan (1) Acute on chronic combined systolic (congestive) and diastolic (congestive) heart failure: Status: Acute Assessment and plan: Weight down to 88.2 kg from 90.2 kg on admission. I/o are not accurate d/t he is not saving all of his urine. His BNP is down to 7758 from 8500 on admission. (2) Elevated troponin: Status: Acute Assessment and plan: troponin remains slightly elevated at 0.09. (3) REI (acute kidney injury): Status: Acute Assessment and plan: Acute on chronic kidney failure probably secondary to cardiorenal syndrome. Hopefully with adequate diuresis we will see an improvement in renal blood flow and improvement in his creatinine. Despite addition of zaroxolyn and increasing his spironolactone to 100 mg daily and using lasix drip, his BUN and creatinine have not increased. will continue to monitor as he is diuresed. (4) AF (paroxysmal atrial fibrillation): Status: Chronic Assessment and plan: INR is now down to 3.1. He was taking warfarin 2.5 mg every Saturday, Saturday and Saturday. This amounts to 7.5 mg weekly. I am going to reinstitute his warfarin at 1 mg every Sat, Sat, Sat, Sat. HR is well controlled on the increased dose of lopressor 37.5 mg BID (5) Dilated idiopathic cardiomyopathy: Status: Chronic Assessment and plan: Negative MPI in 2017. repeat echo demonstrates worsening LV function w/ LVEF <20%; he has biventricular heart failure and he has worsening mitral regurgitation (6) COPD (chronic obstructive pulmonary disease): Status: Acute Assessment and plan: Continue prednisone; schedule combivent with prn albuterol (7) Non-insulin dependent diabetes mellitus: Status: Acute Assessment and plan: Cover with SSI (8) Supratherapeutic INR: Status: Resolved Assessment and plan: INR now down to 3.1. resume warfarin at reduced schedule as note above. cont. to monitor closely as he has a lot of medication interactions w/ his warfarin (9) Ambulatory dysfunction: Status: Acute Assessment and plan: Exacerbated by recent fall and right hip contusion. X-ray of his hip showed no fracture. Physical therapy now working w/ the patient. (10) DVT prophylaxis: Status: Acute Assessment and plan: resume warfarin as noted above. (11) Discharge planning issues: Status: Acute Assessment and plan: DNI, not DNR Palliative care saw the patient yesterday and feels there is some component of anxiety. I have written for as needed diazepam. Plan will be discharged home to the care of his daughter once he is euvolemic. Subjective Subjective Interval history since last seen: Patient still feels that he is short of breath w/ any activity. No chest pain/tightness. Rhythm is ventricular paced w/ frequent PVC's, some non-sustained run of VT. He has only lost 2 KG since going on the lasix drip. I have added zaroxolyn to his regimen and increased his spironolactone to 100 mg daily. I am also changing his diet to restrict his po fluid intake to 1500 mL per day. He still has right hip pain but his xray was negative, I will check CT of his hip although clinically he does not have exquisite pain w/ internal or external rotation. I can not put him on codeine or hydrocodone d/t his allergies and he can not have NSAID d/t his CHF and prior bleeding from NSAID. I will try him on topical capsacein in addition to his lidocaine patches. He can not take Tramadol d/t interaction w/ his Cymbalta. Exam Narrative Exam Narrative: Obese male sitting up in his chair in no acute distress. Neck with JVD. Lungs with bibasilar basilar rales but no wheezing or rhonchi. Heart is irregular but at a controlled rate Abdomen is obese soft and nontender with some edema Lower extremities 2+ bilateral pitting edema Objective Objective Clinical Data: Abnormal lab results 10/30/19 10/30/19 Range/Units 06:25 06:25 PT 30.7 H (9.3-11.0) sec INR 3.1 H D (0.9-1.1) Sodium 134 L (136-145) mmol/L Chloride 95 L (98-107) mmol/L Anion Gap 13.3 H (3-11) mmol/L BUN 35 H (7-18) mg/dL Creatinine 1.46 H (0.70-1.30) mg/dL Glucose 139 H (74-106) mg/dL Troponin I 0.09 H* (<0.06) ng/mL NT-Pro-B Natriuret Pep 7701 H (<300) pg/mL Vital Signs Temperature 37.1 C 10/30/19 09:23 Temperature Source Tympanic 10/30/19 09:23 Pulse 90 10/30/19 09:23 Pulse Rhythm Irregular 10/30/19 07:45 Respiratory Rate 20 10/30/19 09:23 Respiratory Effort 10/30/19 07:45 Respiratory Depth Normal 10/30/19 07:45 Respiratory Pattern Normal 10/30/19 07:45 Blood Pressure 114/72 10/30/19 09:23 Blood Pressure Position Supine 10/27/19 23:23 Pulse Oximetry 95 10/30/19 09:23 Oxygen Delivery Method Room Air 10/30/19 09:23 Oxygen Flow Rate 0 10/30/19 09:23 Pain Level 8 10/30/19 10:54 Comment 10/28/19 04:20 Intake & Output 10/29/19 10/30/19 10/30/19 23:59 11:59 23:59 Intake Total 355.500 / 605.500 610 / 610 Output Total 1600 / 2270 2675 / 2675 Balance -1244.500 / -1664.500 -2065 / -2065 Weight 88.2 kg Intake: IV 105.500 / 115.500 310 / 310 Oral 250 / 490 300 / 300 Output: Urine 1600 / 2270 2675 / 2675 Other: Urine Color Yellow Yellow Urine Appearance Clear Clear Urine Odor Normal None Comment unmeasured amount, Voiding Methods Urinal Urinal Laboratory Results WBC 10.60 k/cumm (4.4-10.8) 10/28/19 06:40 RBC 3.96 m/cumm (4.50-6.00) L 10/28/19 06:40 Hgb 14.3 g/dL (13.5-17.5) 10/28/19 06:40 Hct 42.0 % (40.0-50.0) 10/28/19 06:40 MCV 106.1 fL (80-95) H 10/28/19 06:40 MCH 36.1 pg (27.0-33.0) H 10/28/19 06:40 MCHC 34.0 g/dL (32.0-36.0) 10/28/19 06:40 RDW 15.0 % (11.8-14.1) H 10/28/19 06:40 Plt Count 168 x1000/uL (130-400) 10/28/19 06:40 MPV 11.3 fL (8.0-11.0) H 10/28/19 06:40 Immature Gran % 0.0 % 10/28/19 06:40 Neutrophils % 68.0 10/28/19 06:40 Lymphocytes % 25.0 10/28/19 06:40 Atypical Lymphs % 2 10/27/19 23:40 Monocytes % 5.0 10/28/19 06:40 Eosinophils % 2.0 10/28/19 06:40 Basophils % 0.0 10/28/19 06:40 Absolute Neutrophils 7.21 k/cumm (1.2-6.7) H 10/28/19 06:40 Absolute Lymphocytes 2.65 k/cumm (1.2-3.4) 10/28/19 06:40 Absolute Monocytes 0.53 k/cumm (0.11-0.7) 10/28/19 06:40 Absolute Eosinophils 0.21 k/cumm (0.0-0.7) 10/28/19 06:40 Absolute Basophils 0.00 k/cumm (0.0-0.2) 10/28/19 06:40 Nucleated RBCs 2 /100WBC 10/28/19 06:40 Differential Comment Manual differential 10/28/19 06:40 RBC Morphology See below 10/28/19 06:40 Polychromasia Present 10/28/19 06:40 Hypochromasia 2+ 10/28/19 06:40 Anisocytosis 1+ 10/28/19 06:40 Macrocytosis 2+ 10/28/19 06:40 PT 30.7 sec (9.3-11.0) H 10/30/19 06:25 INR 3.1 (0.9-1.1) H D 10/30/19 06:25 Sodium 134 mmol/L (136-145) L 10/30/19 06:25 Potassium 3.6 mmol/L (3.5-5.1) D 10/30/19 06:25 Chloride 95 mmol/L (98-107) L 10/30/19 06:25 Carbon Dioxide 25.7 mmol/L (21.0-32.0) 10/30/19 06:25 Anion Gap 13.3 mmol/L (3-11) H 10/30/19 06:25 BUN 35 mg/dL (7-18) H 10/30/19 06:25 Creatinine 1.46 mg/dL (0.70-1.30) H 10/30/19 06:25 Estimated GFR/1.73 m2 46.82 (mL/min/1.73m2) 10/30/19 06:25 Glucose 139 mg/dL (74-106) H 10/30/19 06:25 Calcium 9.5 mg/dL (8.5-10.1) 10/30/19 06:25 Magnesium 1.9 mg/dL (1.8-2.4) 10/29/19 07:05 Troponin I 0.09 ng/mL (<0.06) H* 10/30/19 06:25 NT-Pro-B Natriuret Pep 7758 pg/mL (<300) H 10/30/19 06:25 Procalcitonin 0.2 ng/mL 10/28/19 06:40 TSH 1.16 uIU/mL (0.36-3.74) 10/28/19 06:40 Digoxin 0.71 ng/mL (0.90-2.00) L 10/28/19 06:40 COVID-19 PCR Negative (Negative) 10/28/19 02:40 Nasopharyn COVID-19 PCR Not Applicable 10/28/19 02:40 Ref Test [facility]form [facility] 10/28/19 02:40
--- NOTE | 2019-10-30 13:56 | PT.INTREAT ---
Date of service: 10/30/19 Time of Service: 13:56 PT Notes Visit Reasons: RLL PNA,ACUTE EXACERBATION OF CHRONIC COMBINED CHF Physical Therapy Inpatient Treatment Note Date: 10/30/2019 Precautions: Fall. Standard. Activity as tolerated. Subjective: Patient sounded like he was not going to participate in session complaining about how his right hip hurts but with presentation of risks and review of his goals, he decided to agree to doing walking and low intensity exercises. Per nurse Kym, radiograph of R hip is negative for fracture. Objective: General Observation: Obese. IV in the right UE. Swelling to B UE and LE with right side more affected than the left. Oxygen supplementation now on prn basis. Telemetry monitoring in place. Mental Status: Alert and oriented x 4 Pain: Reports soreness on the right hip and thigh from his fall Bed Mobility/Transfers: Sit to supine SBA Sit to stand CGA with cues for hand placement, needs FWW Stand to sit CGA with cues for hand placement, needs FWW Bed to chair CGA with cues for hand placement, needs FWW Chair to bed CGA with cues for hand placement, needs FWW Gait: 65' + 65' using FWW with step through gait pattern with oxygen saturation at 95%-98% on RA with CGA of PT. No SOB. No LOB. Balance: Static Sitting: Normal Dynamic Sitting: Normal Static Standing: Fair Dynamic Standing: Fair Assessment: Patient demonstrates functional mobility decline requiring the use of walker for all mobility ADL performance, strength impairments, balance limitations, and endurance deficits resulting from admitting diagnoses. Srini is a 79-year-old male who presented to the ED on a 10/27/2019 with a chief complaint of increasing shortness of breath that started 2 days prior to admission. Patient is diagnosed with acute on chronic combined systolic and diastolic CHF with EF of 2025%, right lower lobe pneumonia, elevated troponin, acute kidney injury, asymmetric edema to BLE, COPD and IDDM, therapeutic INR and ambulatory dysfunction with referral to services to address functional mobility decline. Plan of Care/Treatment Plan: Continue with PT POC as initially established. TREATMENT CODE/TIME: 66210 x 30 minutes, 26981 x 11 minutes beginning at 13:56 PM.
[2019-10-30] MEDS: diazePAM 2 MG TAB PO ×2 (16:49→20:05)
--- NOTE | 2019-10-30 18:25 | CMPROGNOTE_ITS ---
- If Service Date Differs Date of service: 10/30/19 Time of Service: 18:25 Care Management Progress Note S/O: Srini was sitting up in bed when CM met with him. He reported that he felt lousy today. He stated that his daughter, Juju was able to visit with him yesterday, which he was happy about. Per report, he will remain at [facility] for continued IV lasiks for his CHF. His kidneys are being monitored while he is being diuresed. CM will continue to follow. A: Srini is a 79 year old male admitted to [facility] on 10/27/19 for CHF exacerbation. P: Anticipate Srini will return home when medically cleared. He may need additional support in the home, although his daughter, Juju lives in an a partment above his garage, and is very supportive. He will follow up with his PCP and discharge plan of care. His daughter will drive him home when ready. CM will continue to follow.
[2019-10-30] MEDS: rOPINIRole 0.5 MG TAB PO (20:05)
[2019-10-30] MEDS: Simvastatin 20 MG TAB PO (20:05)
[2019-10-30] MEDS: Warfarin 1 MG TAB PO (20:12)
[2019-10-31] VITALS (7 sets, daily range): BP systolic 104–121; BP diastolic 70–80; PULSE 53–72; RESP 17–19; TEMP 35.5–36.5; O2SAT 92–100
[2019-10-31 00:21] LABS: Mycoplasma Pneumoniae PCR Negative; Specimen source SPUTUM
[2019-10-31 07:23] LABS: INR 2.1 (0.9-1.1); Prothrombin Time 20.5 sec (9.3-11.0)
[2019-10-31 07:49] LABS: Anion Gap 9.1 mmol/L (3-11); BUN 48 mg/dL (7-18); CO2 30.9 mmol/L (21.0-32.0); CREATININE 1.59 mg/dL (0.70-1.30); Calcium 10.2 mg/dL (8.5-10.1); Chloride 90 mmol/L (98-107); Estimated GFR 42.43 (mL/min/1.73m2); Glucose 236 mg/dL (74-106); NT-proBNP 6704 pg/mL (<300); Potassium 3.9 mmol/L (3.5-5.1); Sodium 130 mmol/L (136-145)
[2019-10-31] MEDS: DULoxetine 20 MG CAP PO (08:01)
[2019-10-31] MEDS: Spironolactone 50 MG TAB 100 MG PO (08:01)
[2019-10-31] MEDS: metOLazone 2.5 MG TAB 5 MG PO (08:01)
[2019-10-31] MEDS: Allopurinol 300 MG TAB PO (08:01)
[2019-10-31] MEDS: Metoprolol 25 MG TAB 37.5 MG PO ×2 (08:01→21:09)
[2019-10-31] MEDS: Digoxin 0.125 MG TAB PO (08:01)
[2019-10-31] MEDS: predniSONE 5 MG TAB PO (08:02)
[2019-10-31] MEDS: Insulin Aspart 300 UNITS/3 ML PEN SC ×4 (08:02→21:11)
[2019-10-31] MEDS: Acetaminophen 325 MG TAB PO ×2 (09:26→16:51)
[2019-10-31] MEDS: diazePAM 2 MG TAB PO ×2 (09:26→21:08)
[2019-10-31] MEDS: Normal Saline Flush 10 ML SYR IVP (09:26)
--- NOTE | 2019-10-31 10:00 | PT.INTREAT ---
Date of service: 10/31/19 Time of Service: 08:43 PT Notes Visit Reasons: RLL PNA,ACUTE EXACERBATION OF CHRONIC COMBINED CHF Physical Therapy Inpatient Treatment Note Date: 10/31/2019 Precautions: Fall. Standard. Activity as tolerated. Subjective: Patient is agreeable to PT session today. He complained about increased pain in R hip with today's increased activity level. Nurse Kym notified. Patient is hopeful that he can go home soon. Objective: General Observation: Obese. IV in the right UE. Swelling to B UE and LE with right side more affected than the left. Oxygen supplementation now on prn basis. Telemetry monitoring in place. Mental Status: Alert and oriented x 4 Pain: R hip pain at 8/10 Bed Mobility/Transfers: Sit to supine modified I Sit to stand SBA with cues for hand placement, needs FWW Stand to sit SBA with cues for hand placement, needs FWW Bed to chair SBA with cues for hand placement, needs FWW Chair to bed SBA with cues for hand placement, needs FWW Gait: 200 x 2 using FWW with step through gait pattern with SBA of PT. No SOB. No LOB. Reported 8/10 pain in R hip post activity. Mino increasing. Step length increasing. THERA EX: Heel raises x 10, Partial knee bends x 10 with good response Balance: Static Sitting: Normal Dynamic Sitting: Normal Static Standing: Fair Dynamic Standing: Fair Assessment: Srini is beginning to demonstrate functional mobility improvements in terms of activity tolerance, mobility level, and balance. He is able to tolerate longer ambulation distance, participate in standing level exercises, and work through pain. He has good prognosis for reaching modified independence with short distance ambulation using the FWW. Plan of Care/Treatment Plan: Continue with PT POC as initially established. TREATMENT CODE/TIME: 21919 x 25 minutes, 70811 x 14 minutes beginning at 10:00 AM.
[2019-10-31] MEDS: Ipratropium/Albuterol 4 GM 120 PUFF INH IH ×4 (10:02→21:01)
--- NOTE | 2019-10-31 10:44 | PHA.REVIEW ---
Pharmacy Admission Review - Admission Clinical Review (Last Reviewed 10/28/19 @ 04:16 by Vanna Gar MD) Asymmetric edema of both lower extremities (Acute) Ambulatory dysfunction (Acute) Elevated troponin (Acute) Non-insulin dependent diabetes mellitus (Acute) Acute on chronic combined systolic (congestive) and diastolic (congestive) heart failure (Acute) Right lower lobe pneumonia (Acute) Pneumonia (Acute) REI (acute kidney injury) (Acute) DVT prophylaxis (Acute) Discharge planning issues (Acute) COPD (chronic obstructive pulmonary disease) (Acute) venom-honey bee Allergy (Severe, Verified 10/26/19 10:00) oxycodone HCl [From Percocet] Allergy (Intermediate, Verified 10/26/19 10:00) aspirin Adverse Reaction (Mild, Verified 10/26/19 10:00) epistaxis/nose bleeds NSAIDS (Non-Steroidal Anti-Inflamma Adverse Reaction (Mild, Verified 10/26/19 10:00) epistaxis/nose bleeds PARMINDER Inhibitors Adverse Reaction (Unknown, Verified 10/26/19 10:00) COUGH codeine Adverse Reaction (Unknown, Verified 10/26/19 10:00) amiodarone Adverse Reaction (Verified 10/26/19 10:00) Insomnia diltiazem Adverse Reaction (Verified 10/26/19 10:00) Insomnia Height 5 ft 6 in Weight 70 kg - Renal Dosing Renal Dosing: BUN 48 mg/dL (7-18) H D 10/31/19 06:36 Creatinine 1.59 mg/dL (0.70-1.30) H 10/31/19 06:36 Medications needing adjustments: Reviewed (CRCL ~35ML/MIN) - Anticoagulation Anticoagulation: Hgb 14.3 g/dL (13.5-17.5) 10/28/19 06:40 Hct 42.0 % (40.0-50.0) 10/28/19 06:40 Plt Count 168 x1000/uL (130-400) 10/28/19 06:40 INR 2.1 (0.9-1.1) H D 10/31/19 06:36 Creatinine 1.59 mg/dL (0.70-1.30) H 10/31/19 06:36 DVT Prohphylaxis: Reviewed Medications: Warfarin Therapeutic Anticoagulation: Reviewed Medications: Warfarin (INR 2.1) - Relevant Labs Sodium 130 mmol/L (136-145) L 10/31/19 06:36 Potassium 3.9 mmol/L (3.5-5.1) 10/31/19 06:36 Chloride 90 mmol/L (98-107) L 10/31/19 06:36 Magnesium 1.9 mg/dL (1.8-2.4) 10/29/19 07:05 - DM Control DM Control: Glucose 236 mg/dL (74-106) H D 10/31/19 06:36 Finger Stick Blood Glucose 179 Finger Stick Blood Glucose 179 Insulin Dosing: Reviewed (INSULIN aspart sliding scale, Insulin glargine added today) - Heart Failure/WV Heart Failure/WV: Troponin I 0.09 ng/mL (<0.06) H* 10/30/19 06:25 NT-Pro-B Natriuret Pep 6704 pg/mL (<300) H 10/31/19 06:36 EF%, PARMINDER's, B-Blockers, Diuretics: Reviewed (metoprolol, spironolactone, furosemide, metolazone) - BP Control BP Control: Blood Pressure 110/72 Blood Pressure 110/72 - Qtc Review If Elevated: Reviewed (485 meds ok) - IV to PO Switch IV Medications: Reviewed (Iv furosemide infusion) - Home Meds Home Med List reviewed: Reviewed (not ordered: metformin, umeclidinion (ipratropium/albuterol ordered)) - Current meds Current Medication Order Review: Reviewed - Comments Comments/Follow Ups: pt diuresing well , furosemide infusion rate decreased from 20mg/hr to 10mg/hr
--- NOTE | 2019-10-31 11:39 | PDOC.CMPRO ---
- If Service Date Differs Date of service: 10/31/19 Time of Service: 11:39 Care Management Progress Note S/O: Plans for Srini remain the same. He remains on tele. Nursing report occasional spacer spikes on top of QRS complexes; the strips will be reviewed with cardiology. Srini reports feeling better but continues to experience shortness of breath with walking. CM will continue to follow. A: Srini is a 79 year old male admitted to [facility] on 10/27/19 for CHF exacerbation. P: No change in plan. Anticipate Srini will return home when medically cleared by provider with new Home Health nursing and PT services. Srini will follow up with his PCP and discharge plan of care as directed. His daughter will drive him home when ready. CM will continue to support patient and discharge planning needs.
--- NOTE | 2019-10-31 15:24 | PGE_ITS ---
Date of Service Date of service: 10/31/19 Time of Service: 15:24 Assessment and Plan Assessment and plan (1) Acute on chronic combined systolic (congestive) and diastolic (congestive) heart failure: Status: Acute Assessment and plan: Clinically better on combination of lasix gtt, metolazone and aldactone. Titrating lasix gtt down. Plan to switch to PO lasix tomorrow with plans for discharge home with home health nursing. (2) Elevated troponin: Status: Acute Assessment and plan: Mild type 2 NSTEMI in setting of acute exacerbation of CHF. Neg MPI in 2017. There are LV wall motion abnormalities. May benefit from outpatient ischemic workup. (3) REI (acute kidney injury): Status: Acute Assessment and plan: Acute on chronic kidney failure probably secondary to cardiorenal syndrome. Tolerating diuresis, but will start to titrate lasix gtt down. Continue to monitor I/O's and daily weights. (4) AF (paroxysmal atrial fibrillation): Status: Chronic Assessment and plan: No chage in tx today. (5) Dilated idiopathic cardiomyopathy: Status: Chronic Assessment and plan: S/p Negative MPI in 2017. S/p AICD - no evidence of sustained Vtach or Vfib since April. Nursing notes that there are spacer spikes on top of QRS complexes sometimes. Will review with cardiology. Continue to monitor on tele. (6) COPD (chronic obstructive pulmonary disease): Status: Acute Assessment and plan: Continue prednisone, combivent, prn albuterol Repeat procalcitonin. Off abx at this time. (7) Non-insulin dependent diabetes mellitus: Status: Acute Assessment and plan: Cover with SSI (8) Supratherapeutic INR: Status: Resolved (9) Ambulatory dysfunction: Status: Acute Assessment and plan: Continue PT (10) DVT prophylaxis: Status: Acute Assessment and plan: Continue coumadin (11) Discharge planning issues: Status: Acute Assessment and plan: DNI, not DNR Palliative care evaluated the patient. Plan will be discharged home with home health nursing in addition to PT in 48 hours. Subjective Subjective Interval history since last seen: States breathing and the legs are feeling better. States he still feels short of breath when walking, but this is better too. No SOB at rest. Denies dizziness, chest pain, nausea. He is now on lasix gtt at 10 mg/hr. Exam Narrative Exam Narrative: General: Very pleasant elderly obese male, appears much better than several days ago on admission, A&Ox3 HEENT: EOMI, MMM, no JVD Cardiovascular: seemingly RRR, no m/r/g Lungs: very quiet crackles B bases, unchanged. Gastrointestinal: soft, nontender, nondistended Extremities: trace BLE edema, no c/c. Objective Objective Clinical Data: Abnormal lab results 10/31/19 10/31/19 Range/Units 06:36 06:36 PT 20.5 H D (9.3-11.0) sec INR 2.1 H D (0.9-1.1) Sodium 130 L (136-145) mmol/L Chloride 90 L (98-107) mmol/L BUN 48 H D (7-18) mg/dL Creatinine 1.59 H (0.70-1.30) mg/dL Glucose 236 H D (74-106) mg/dL Calcium 10.2 H (8.5-10.1) mg/dL NT-Pro-B Natriuret Pep 6704 H (<300) pg/mL Vital Signs Temperature 35.8 C L 10/31/19 11:20 Temperature Source Tympanic 10/31/19 11:20 Pulse 58 L 10/31/19 11:20 Pulse Rhythm Irregular 10/31/19 08:00 Respiratory Rate 18 10/31/19 11:20 Respiratory Effort 10/31/19 08:00 Respiratory Depth Normal 10/31/19 08:00 Respiratory Pattern Normal 10/31/19 08:00 Blood Pressure 104/70 10/31/19 11:20 Blood Pressure Position Supine 10/27/19 23:23 Pulse Oximetry 94 L 10/31/19 11:20 Oxygen Delivery Method Room Air 10/31/19 11:20 Oxygen Flow Rate 0 10/31/19 11:20 Pain Level 0 10/31/19 11:20 Comment 10/30/19 23:45 Intake & Output 10/30/19 10/31/19 10/31/19 23:59 11:59 23:59 Intake Total 290.000 / 1000.000 398.667 / 398.667 Output Total 1500 / 4325 2075 / 2625 550 / 2625 Balance -1210.000 / -3325.000 -1676.333 / -2226.333 -550 / -2226.333 Weight 70 kg Intake: IV 190.000 / 600.000 198.667 / 198.667 Oral 100 / 400 200 / 200 Output: Urine 1500 / 4325 2075 / 2625 550 / 2625 Other: Urine Color Yellow Yellow Yellow Urine Appearance Clear Clear Clear Urine Odor None Normal Normal Stool Size Moderate Smear Stool Characteristics Soft Soft Formed Brown Voiding Methods Urinal Urinal Urinal Laboratory Results WBC 10.60 k/cumm (4.4-10.8) 10/28/19 06:40 RBC 3.96 m/cumm (4.50-6.00) L 10/28/19 06:40 Hgb 14.3 g/dL (13.5-17.5) 10/28/19 06:40 Hct 42.0 % (40.0-50.0) 10/28/19 06:40 MCV 106.1 fL (80-95) H 10/28/19 06:40 MCH 36.1 pg (27.0-33.0) H 10/28/19 06:40 MCHC 34.0 g/dL (32.0-36.0) 10/28/19 06:40 RDW 15.0 % (11.8-14.1) H 10/28/19 06:40 Plt Count 168 x1000/uL (130-400) 10/28/19 06:40 MPV 11.3 fL (8.0-11.0) H 10/28/19 06:40 Immature Gran % 0.0 % 10/28/19 06:40 Neutrophils % 68.0 10/28/19 06:40 Lymphocytes % 25.0 10/28/19 06:40 Atypical Lymphs % 2 10/27/19 23:40 Monocytes % 5.0 10/28/19 06:40 Eosinophils % 2.0 10/28/19 06:40 Basophils % 0.0 10/28/19 06:40 Absolute Neutrophils 7.21 k/cumm (1.2-6.7) H 10/28/19 06:40 Absolute Lymphocytes 2.65 k/cumm (1.2-3.4) 10/28/19 06:40 Absolute Monocytes 0.53 k/cumm (0.11-0.7) 10/28/19 06:40 Absolute Eosinophils 0.21 k/cumm (0.0-0.7) 10/28/19 06:40 Absolute Basophils 0.00 k/cumm (0.0-0.2) 10/28/19 06:40 Nucleated RBCs 2 /100WBC 10/28/19 06:40 Differential Comment Manual differential 10/28/19 06:40 RBC Morphology See below 10/28/19 06:40 Polychromasia Present 10/28/19 06:40 Hypochromasia 2+ 10/28/19 06:40 Anisocytosis 1+ 10/28/19 06:40 Macrocytosis 2+ 10/28/19 06:40 PT 20.5 sec (9.3-11.0) H D 10/31/19 06:36 INR 2.1 (0.9-1.1) H D 10/31/19 06:36 Sodium 130 mmol/L (136-145) L 10/31/19 06:36 Potassium 3.9 mmol/L (3.5-5.1) 10/31/19 06:36 Chloride 90 mmol/L (98-107) L 10/31/19 06:36 Carbon Dioxide 30.9 mmol/L (21.0-32.0) 10/31/19 06:36 Anion Gap 9.1 mmol/L (3-11) 10/31/19 06:36 BUN 48 mg/dL (7-18) H D 10/31/19 06:36 Creatinine 1.59 mg/dL (0.70-1.30) H 10/31/19 06:36 Estimated GFR/1.73 m2 42.43 (mL/min/1.73m2) 10/31/19 06:36 Glucose 236 mg/dL (74-106) H D 10/31/19 06:36 Calcium 10.2 mg/dL (8.5-10.1) H 10/31/19 06:36 Magnesium 1.9 mg/dL (1.8-2.4) 10/29/19 07:05 Troponin I 0.09 ng/mL (<0.06) H* 10/30/19 06:25 NT-Pro-B Natriuret Pep 6704 pg/mL (<300) H 10/31/19 06:36 Procalcitonin 0.2 ng/mL 10/28/19 06:40 TSH 1.16 uIU/mL (0.36-3.74) 10/28/19 06:40 Digoxin 0.71 ng/mL (0.90-2.00) L 10/28/19 06:40 COVID-19 PCR Negative (Negative) 10/28/19 02:40 Nasopharyn COVID-19 PCR Not Applicable 10/28/19 02:40 M. pneumoniae Source Sputum 10/29/19 05:40 M. pneumoniae (PCR) Negative 10/29/19 05:40 Ref Test Perform Site [place] [facility] 10/28/19 02:40
[2019-10-31] MEDS: Lidocaine 5% Patch 2 PATCH TP (18:26)
[2019-10-31] MEDS: rOPINIRole 0.5 MG TAB PO (21:08)
[2019-10-31] MEDS: Warfarin 1 MG TAB PO (21:08)
[2019-10-31] MEDS: Simvastatin 20 MG TAB PO (21:09)
[2019-10-31] MEDS: Insulin Glargine 300 UNITS/3 ML PEN 10 UNITS SC (21:17)
[2019-11-01 04:50] VITALS: BP 125/59; PULSE 50; RESP 17; TEMP 35; O2SAT 92
[2019-11-01 06:50] LABS: HCT 45.6 % (40.0-50.0); HGB 16.7 g/dL (13.5-17.5); Mean Corp. HGB Concentration 36.6 g/dL (32.0-36.0); Mean Corpuscular Volume 101.1 fL (80-95); Mean Platelet Volume 11.1 fL (8.0-11.0); Platelet Count 180 x1000/uL (130-400); RBC 4.51 m/cumm (4.50-6.00); RBC Distribution Width 14.6 % (11.8-14.1)
[2019-11-01 07:00] LABS: Anion Gap 8.8 mmol/L (3-11); BUN 56 mg/dL (7-18); CO2 32.2 mmol/L (21.0-32.0); CREATININE 1.64 mg/dL (0.70-1.30); Calcium 9.8 mg/dL (8.5-10.1); Chloride 89 mmol/L (98-107); Estimated GFR 40.94 (mL/min/1.73m2); Glucose 139 mg/dL (74-106); Potassium 3.2 mmol/L (3.5-5.1); Sodium 130 mmol/L (136-145)
[2019-11-01 07:03] LABS: INR 1.9 (0.9-1.1); Prothrombin Time 18.7 sec (9.3-11.0)
[2019-11-01 07:38] LABS: Procalcitonin 0.4 ng/mL
--- NOTE | 2019-11-01 08:00 | DI.RAD_ITS ---
EXAM: XR CHEST 2V PA LATERAL CLINICAL HISTORY: Follow up CHF +/- PNA TECHNIQUE: 2D digital imaging was performed. COMPARISON: CR,XR XR CHEST 2V PA LATERAL from 10/28/2019 FINDINGS: Heart size is stable as is the pulmonary vasculature. Since the prior examination, there has been de crease in the pulmonary infiltrates in the bases. No pleural effusion is present. No pneumothorax i s present. The pacing device is in stable position. Age-appropriate degenerative changes are seen i n the spine. IMPRESSION: Overall, improvement in the appearance of the chest compared to the prior examination. DATA REPOSITORY: RADIATION DOSE DELIVERED:
[2019-11-01 08:16] VITALS: PULSE 69; RESP 18; TEMP 36.8; O2SAT 92
[2019-11-01] MEDS: Metoprolol 25 MG TAB 37.5 MG PO ×2 (08:41→19:50)
[2019-11-01] MEDS: metOLazone 2.5 MG TAB 5 MG PO (08:42)
[2019-11-01] MEDS: Allopurinol 300 MG TAB PO (08:42)
[2019-11-01] MEDS: predniSONE 5 MG TAB PO (08:42)
[2019-11-01] MEDS: DULoxetine 20 MG CAP PO (08:42)
[2019-11-01] MEDS: Spironolactone 50 MG TAB 100 MG PO (08:43)
[2019-11-01] MEDS: Insulin Aspart 300 UNITS/3 ML PEN SC ×4 (08:44→21:22)
[2019-11-01 08:54] VITALS: PULSE 69
[2019-11-01] MEDS: Digoxin 0.125 MG TAB PO (08:54)
[2019-11-01 09:04] VITALS: BP 105/73
[2019-11-01] MEDS: LIDOCAINE Patch Removal TP (09:28)
[2019-11-01] MEDS: Acetaminophen 325 MG TAB PO (09:35)
[2019-11-01] MEDS: Ipratropium/Albuterol 4 GM 120 PUFF INH IH ×4 (09:48→19:55)
--- NOTE | 2019-11-01 10:17 | DI.VRAD_ITS ---
PROCEDURE INFORMATION: Exam: XR Chest, 2 Views Exam date and time: 11/01/2019 10:05 AM Age: 79 years old Clinical indication: Other: F/u chf +/- pna TECHNIQUE: Imaging protocol: XR of the chest Views: 2 views. COMPARISON: CR XR CHEST 2V PA LATERAL 10/28/2019 12:10 AM FINDINGS: Tubes, catheters and devices: Transvenous pacemaker leads in good position Lungs: Decreasing opacities in both bases may represent improving pneumonia. Pleural space: Unremarkable. No pleural effusion. No pneumothorax. Heart/Mediastinum: Stable cardiac silhouette Bones/joints: Unremarkable. IMPRESSION: Decreasing opacities in both bases may represent improving pneumonia. Dictated and Authenticated by: Racheal Marte MD. Ordering:KEN Prabhakar MD
[2019-11-01] MEDS: Potassium Chloride 20 MEQ TABCR 40 MEQ PO (11:19)
[2019-11-01 11:43] LABS: Bilirubin Negative (Negative); Blood Trace-intact (Negative); Clarity Clear (Clear); Glucose Negative (Negative); Ketones Negative (Negative); Leukocyte Esterase Negative (Negative); Nitrite Negative (Negative); Urobilinogen 0.2 EU/dL (Up TO 0.2)
[2019-11-01 11:54] LABS: Bacteria Rare HPF (Negative); C & S Indicated? C&S Done As Ordered; Casts Negative LPF (Negative); Crystals Negative HPF (Negative); Epithelial Cells Rare HPF (Negative); Mucus Negative (Negative); Other Cells Negative (Negative); WBC Negative HPF (0-5)
--- NOTE | 2019-11-01 14:07 | PT.INTREAT ---
Date of service: 11/01/19 Time of Service: 14:07 PT Notes Visit Reasons: RLL PNA,ACUTE EXACERBATION OF CHRONIC COMBINED CHF Physical Therapy Inpatient Treatment Note Date: 11/01/2019 Precautions: Fall. Standard. Activity as tolerated. Subjective: Srini stated that he had a hard time picking up his right foot early this morning. He complained of having a hard time swallowing as he was placed on fluid restriction as of today. Nurse was made aware who gave him 3/4 of a small cup of water. Per daughter Juju who was present throughout session, Srini is almost near baseline mobility-savage without the report of pain in R LE. Objective: General Observation: Obese. IV in the right UE unhooked. Swelling to B UE and LE with right side more affected than the left. Oxygen supplementation now on prn basis. Telemetry monitoring in place. Mental Status: Alert and oriented x 4 Pain: R hip pain at 5/10 Bed Mobility/Transfers: Sit to supine modified I Sit to stand SBA with cues for hand placement, needs FWW Stand to sit SBA with cues for hand placement, needs FWW Bed to chair SBA with cues for hand placement, needs FWW Chair to bed SBA with cues for hand placement, needs FWW Gait: 300 feet using FWW with step through gait pattern with SBA of PT. No SOB. No LOB. Reported 5/10 pain in R hip post activity. Dominga increasing. Step length increasing. Dorsiflexion and knee flexion of symmetric height and length. THERA EX: Only tolerated 10 reps of LAQs and 10 of seated hip flexion due to fatigue. Balance: Static Sitting: Normal Dynamic Sitting: Normal Static Standing: Fair Dynamic Standing: Fair Assessment: Being placed on fluid restriction may have added anxiety to patient. His activity tolerance waned a bit. His issues with not being able to lift foot early this morning may have been due to pain. Plan of Care/Treatment Plan: Continue with PT POC as initially established. TREATMENT CODE/TIME: 12212 x 30 minutes beginning at 14:07 PM.
[2019-11-01] MEDS: Amoxicillin 875/Clav. 125 TAB PO ×2 (14:09→19:49)
--- NOTE | 2019-11-01 14:52 | W.PM.PROGNOT ---
Date of Service Date of service: 11/01/19 Time of Service: 14:52 Assessment and Plan Assessment and plan (1) Acute on chronic combined systolic (congestive) and diastolic (congestive) heart failure: Status: Acute Assessment and plan: Transition from lasix gtt to lasix boluses. Continue metolazone and aldactone. Compare standing weights to standing weights as bedscale weights seem to be inaccurate. . (2) Elevated troponin: Status: Acute Assessment and plan: Mild type 2 NSTEMI in setting of acute exacerbation of CHF. Neg MPI in 2017. There are LV wall motion abnormalities. May benefit from outpatient ischemic workup. Patient requests cardiac follow up at our facility. (3) REI (acute kidney injury): Status: Acute Assessment and plan: Acute on chronic kidney failure probably secondary to cardiorenal syndrome. Monitor Cr as lasix is being switched to IV boluses. Consider switch to bumex on discharge. Continue to monitor I/O's and daily weights. (4) AF (paroxysmal atrial fibrillation): Status: Chronic Assessment and plan: No chage in tx today. (5) Dilated idiopathic cardiomyopathy: Status: Chronic Assessment and plan: S/p Negative MPI in 2017. S/p AICD - no evidence of sustained Vtach or Vfib since April. Discussed appearance of strips with [facility] [place] - appears to be working well. Spikes on top of QRS complexes are supposed to be there, per [facility] cardiology. (6) COPD (chronic obstructive pulmonary disease): Status: Acute Assessment and plan: Continue prednisone, combivent, prn albuterol As procalcitonin is elevated and the patient has leucocytosis today, will add PO abx (in the interest of not wanting to introduce extra volume) - augmentin for mild pneumonia vs bronchitis. (7) Non-insulin dependent diabetes mellitus: Status: Acute Assessment and plan: Cover with SSI (8) Supratherapeutic INR: Status: Resolved (9) Ambulatory dysfunction: Status: Acute Assessment and plan: Continue PT (10) DVT prophylaxis: Status: Acute Assessment and plan: Continue coumadin (11) Discharge planning issues: Status: Acute Assessment and plan: DNI, not DNR Palliative care evaluated the patient. Plan will be discharged home with home health nursing in addition to PT in 48 hours. Subjective Subjective Interval history since last seen: Denies dizziness, chest pain, states his shortness of breath is about its normal. Has a dry cough. Denies n/v. C/o feeling weak on his legs when walking with PT. Would prefer to go home with PT rather than consider SNF on discharge. Exam Narrative Exam Narrative: General: Very pleasant elderly obese males, sounds hoarse today, A&Ox3 HEENT: EOMI, MMM, no JVD Cardiovascular: seemingly RRR, no m/r/g Lungs: very quiet crackles B bases. Gastrointestinal: soft, nontender, nondistended Extremities: +1 BLE edema, no c/c. Objective Objective Clinical Data: Abnormal lab results 11/01/19 11/01/19 11/01/19 Range/Units 06:35 06:35 06:35 WBC 13.10 H (4.4-10.8) k/cumm MCV 101.1 H (80-95) fL MCH 37.0 H (27.0-33.0) pg MCHC 36.6 H (32.0-36.0) g/dL RDW 14.6 H (11.8-14.1) % MPV 11.1 H (8.0-11.0) fL PT 18.7 H (9.3-11.0) sec INR 1.9 H (0.9-1.1) Sodium 130 L (136-145) mmol/L Potassium 3.2 L (3.5-5.1) mmol/L Chloride 89 L (98-107) mmol/L Carbon Dioxide 32.2 H (21.0-32.0) mmol/L BUN 56 H (7-18) mg/dL Creatinine 1.64 H (0.70-1.30) mg/dL Glucose 139 H D (74-106) mg/dL Urine Blood (Negative) Urine RBC (0-2) HPF 11/01/19 Range/Units 11:30 WBC (4.4-10.8) k/cumm MCV (80-95) fL MCH (27.0-33.0) pg MCHC (32.0-36.0) g/dL RDW (11.8-14.1) % MPV (8.0-11.0) fL PT (9.3-11.0) sec INR (0.9-1.1) Sodium (136-145) mmol/L Potassium (3.5-5.1) mmol/L Chloride (98-107) mmol/L Carbon Dioxide (21.0-32.0) mmol/L BUN (7-18) mg/dL Creatinine (0.70-1.30) mg/dL Glucose (74-106) mg/dL Urine Blood Trace-intact H (Negative) Urine RBC 5-10 H (0-2) HPF Vital Signs Temperature 36.8 C 11/01/19 08:16 Temperature Source Tympanic 11/01/19 08:16 Pulse 69 11/01/19 08:54 Pulse Rhythm Regular 11/01/19 09:38 Respiratory Rate 18 11/01/19 08:16 Respiratory Effort 11/01/19 09:38 Respiratory Depth Normal 11/01/19 09:38 Respiratory Pattern Normal 11/01/19 09:38 Blood Pressure 105/73 11/01/19 09:04 Blood Pressure Position Supine 10/27/19 23:23 Pulse Oximetry 92 L 11/01/19 08:16 Oxygen Delivery Method Room Air 11/01/19 08:16 Oxygen Flow Rate 0 11/01/19 08:16 Pain Level 8 11/01/19 08:16 Comment 10/31/19 23:00 Intake & Output 10/31/19 11/01/19 11/01/19 23:59 11:59 23:59 Intake Total 726.167 / 4157.681 3137 / 1180 120 / 1180 Output Total 850 / 2925 700 / 700 Balance -123.833 / -1800.166 360 / 480 120 / 480 Weight 83.9 kg Intake: IV 96.167 / 294.834 100 / 100 Oral 630 / 830 960 / 1080 120 / 1080 Output: Urine 850 / 2925 700 / 700 Other: Urine Color Pale Yellow Urine Appearance Clear Clear Urine Odor None Normal Voiding Methods Urinal Urinal Laboratory Results WBC 13.10 k/cumm (4.4-10.8) H 11/01/19 06:35 RBC 4.51 m/cumm (4.50-6.00) 11/01/19 06:35 Hgb 16.7 g/dL (13.5-17.5) 11/01/19 06:35 Hct 45.6 % (40.0-50.0) 11/01/19 06:35 MCV 101.1 fL (80-95) H 11/01/19 06:35 MCH 37.0 pg (27.0-33.0) H 11/01/19 06:35 MCHC 36.6 g/dL (32.0-36.0) H 11/01/19 06:35 RDW 14.6 % (11.8-14.1) H 11/01/19 06:35 Plt Count 180 x1000/uL (130-400) 11/01/19 06:35 MPV 11.1 fL (8.0-11.0) H 11/01/19 06:35 Immature Gran % 0.0 % 10/28/19 06:40 Neutrophils % 68.0 10/28/19 06:40 Lymphocytes % 25.0 10/28/19 06:40 Atypical Lymphs % 2 10/27/19 23:40 Monocytes % 5.0 10/28/19 06:40 Eosinophils % 2.0 10/28/19 06:40 Basophils % 0.0 10/28/19 06:40 Absolute Neutrophils 7.21 k/cumm (1.2-6.7) H 10/28/19 06:40 Absolute Lymphocytes 2.65 k/cumm (1.2-3.4) 10/28/19 06:40 Absolute Monocytes 0.53 k/cumm (0.11-0.7) 10/28/19 06:40 Absolute Eosinophils 0.21 k/cumm (0.0-0.7) 10/28/19 06:40 Absolute Basophils 0.00 k/cumm (0.0-0.2) 10/28/19 06:40 Nucleated RBCs 2 /100WBC 10/28/19 06:40 Differential Comment Manual differential 10/28/19 06:40 RBC Morphology See below 10/28/19 06:40 Polychromasia Present 10/28/19 06:40 Hypochromasia 2+ 10/28/19 06:40 Anisocytosis 1+ 10/28/19 06:40 Macrocytosis 2+ 10/28/19 06:40 PT 18.7 sec (9.3-11.0) H 11/01/19 06:35 INR 1.9 (0.9-1.1) H 11/01/19 06:35 Sodium 130 mmol/L (136-145) L 11/01/19 06:35 Potassium 3.2 mmol/L (3.5-5.1) L 11/01/19 06:35 Chloride 89 mmol/L (98-107) L 11/01/19 06:35 Carbon Dioxide 32.2 mmol/L (21.0-32.0) H 11/01/19 06:35 Anion Gap 8.8 mmol/L (3-11) 11/01/19 06:35 BUN 56 mg/dL (7-18) H 11/01/19 06:35 Creatinine 1.64 mg/dL (0.70-1.30) H 11/01/19 06:35 Estimated GFR/1.73 m2 40.94 (mL/min/1.73m2) 11/01/19 06:35 Glucose 139 mg/dL (74-106) H D 11/01/19 06:35 Calcium 9.8 mg/dL (8.5-10.1) 11/01/19 06:35 Magnesium 2.0 mg/dL (1.8-2.4) 11/01/19 06:35 Troponin I 0.09 ng/mL (<0.06) H* 10/30/19 06:25 NT-Pro-B Natriuret Pep 6704 pg/mL (<300) H 10/31/19 06:36 Procalcitonin 0.4 ng/mL 11/01/19 06:35 TSH 1.16 uIU/mL (0.36-3.74) 10/28/19 06:40 Urine Color Yellow (Yellow) 11/01/19 11:30 Urine Clarity Clear (Clear) 11/01/19 11:30 Urine pH 7.0 (5-8) 11/01/19 11:30 Ur Specific Blanket 1.020 (1.005-1.025) 11/01/19 11:30 Urine Protein Negative mg/dL (Negative) 11/01/19 11:30 Urine Ketones Negative mg/dL (Negative) 11/01/19 11:30 Urine Blood Trace-intact (Negative) H 11/01/19 11:30 Urine Nitrite Negative (Negative) 11/01/19 11:30 Urine Bilirubin Negative (Negative) 11/01/19 11:30 Urine Urobilinogen 0.2 EU/dL (Up TO 0.2) 11/01/19 11:30 Ur Leukocyte Esterase Negative (Negative) 11/01/19 11:30 Urine RBC 5-10 HPF (0-2) H 11/01/19 11:30 Urine WBC Negative HPF (0-5) 11/01/19 11:30 Ur Epithelial Cells Rare HPF (Negative) 11/01/19 11:30 Urine Crystals Negative HPF (Negative) 11/01/19 11:30 Urine Bacteria Rare HPF (Negative) 11/01/19 11:30 Urine Casts Negative LPF (Negative) 11/01/19 11:30 Urine Mucus Negative (Negative) 11/01/19 11:30 Urine Other Negative (Negative) 11/01/19 11:30 Ur Culture Indicated? C&s done as ordered 11/01/19 11:30 Urine Glucose Negative mg/dL (Negative) 11/01/19 11:30 Digoxin 0.71 ng/mL (0.90-2.00) L 10/28/19 06:40 COVID-19 PCR Negative (Negative) 10/28/19 02:40 Nasopharyn COVID-19 PCR Not Applicable 10/28/19 02:40 M. pneumoniae Source Sputum 10/29/19 05:40 M. pneumoniae (PCR) Negative 10/29/19 05:40 Ref Test Perform Site [facility] 10/28/19 02:40 CXR: Decreasing opacities in both bases may represent improving pneumonia.
[2019-11-01 15:40] VITALS: BP 115/82; PULSE 62; RESP 19; TEMP 36.1; O2SAT 94
[2019-11-01 15:54] LABS: Streptococcus Pneumoniae Ag, U Negative (Negative)
[2019-11-01] MEDS: Furosemide 100 MG/10 ML VIAL 80 MG IVP (16:02)
[2019-11-01] MEDS: Normal Saline Flush 10 ML SYR IVP (16:04)
[2019-11-01] MEDS: Lidocaine 5% Patch 2 PATCH TP (18:10)
[2019-11-01 19:33] VITALS: BP 114/79; PULSE 66; RESP 19; TEMP 35.8; O2SAT 95
--- NOTE | 2019-11-01 19:38 | CMPROGNOTE_ITS ---
- If Service Date Differs Date of service: 11/01/19 Time of Service: 19:39 Care Management Progress Note S/O: No change in plan. Srini continues to improve but still has difficulty walking. A review of his medical chart reveals his preference to go home with PT vs SNF placement on discharge. He has also requested cardiac follow up at [facility]. CM will continue to follow. A: Srini is a 79 year old male admitted to [facility] on 10/28/19 for CHF exacerbation. P: No change in plan. Anticipate Srini will return home when medically cleared by provider with new Home Health nursing and PT services. Srini will follow up with his PCP and discharge plan of care as directed. His daughter will drive him home when ready. CM will continue to support patient and discharge planning needs.
[2019-11-01] MEDS: Simvastatin 20 MG TAB PO (19:49)
[2019-11-01] MEDS: Insulin Glargine 300 UNITS/3 ML PEN 10 UNITS SC (21:23)
[2019-11-01] MEDS: rOPINIRole 0.5 MG TAB PO (21:23)
[2019-11-02] VITALS (7 sets, daily range): BP systolic 104–141; BP diastolic 72–87; PULSE 55–83; RESP 15–20; TEMP 35.9–36.7; O2SAT 92–100
--- NOTE | 2019-11-02 | DI.CT_ITS ---
EXAM: CT HEAD WO CLINICAL HISTORY: confusion, on coumadin. TECHNIQUE: Imaging Protocol: Axial computed tomography images with coronal and sagittal reformatted images were created and reviewed FINDINGS: There is cerebral atrophy consistent with the patient's age. 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 There are old bilateral basal gangliar lacunar infarcts. No intracranial hemorrhage, midline s hift or mass effect is identified. Ventricles are intact. The basilar cisterns are patent. No acut e territorial infarct is seen. The calvarium is intact. The visualized paranasal sinuses are clear as are the mastoid air cells. IMPRESSION: No acute intracranial process. RADIATION DOSE DELIVERED: 622.28mGy.cm Total DLP DATA REPOSITORY: All CT scans at this facility are submitted to the National Radiology Data Registry (NRDR) Dose Index Registry (DIR) with the [employer] (A[employer]). RADIATION OPTIMIZATION: All CT scans at this facility use at least one of these dose optimization te chniques: automated exposure control; mA and/or kV adjustment per patient size (includes targeted exa ms where dose is matched to clinical indication); or iterative reconstruction.
[2019-11-02] MEDS: LIDOCAINE Patch Removal TP (06:32)
[2019-11-02 06:55] LABS: Abs Immature Grans 0.07 k/cumm (0.0-0.09); Absolute Eosinophil Count 0.11 k/cumm (0.0-0.7); Absolute Lymphocyte Count 1.43 k/cumm (1.2-3.4); Absolute Monocyte Count 1.65 k/cumm (0.11-0.7); Basophils % 0.2; Eosinophils % 0.9; HCT 51.3 % (40.0-50.0); HGB 17.6 g/dL (13.5-17.5); Immature Grans % 0.6 %; Lymphocytes % 11.3; Mean Corp. HGB Concentration 34.3 g/dL (32.0-36.0); Mean Corpuscular Hemoglobin 35.3 pg (27.0-33.0); Mean Corpuscular Volume 102.8 fL (80-95); Mean Platelet Volume 11.2 fL (8.0-11.0); Platelet Count 199 x1000/uL (130-400); RBC 4.99 m/cumm (4.50-6.00); RBC Distribution Width 14.7 % (11.8-14.1); White Blood Cell Count 12.66 k/cumm (4.4-10.8)
[2019-11-02 07:27] LABS: Anion Gap 9.6 mmol/L (3-11); BUN 63 mg/dL (7-18); CO2 32.4 mmol/L (21.0-32.0); CREATININE 1.81 mg/dL (0.70-1.30); Calcium 10.1 mg/dL (8.5-10.1); Chloride 88 mmol/L (98-107); Estimated GFR 36.54 (mL/min/1.73m2); Glucose 139 mg/dL (74-106); Magnesium 2.3 mg/dL (1.8-2.4); Potassium 3.8 mmol/L (3.5-5.1); Sodium 130 mmol/L (136-145)
[2019-11-02 07:41] LABS: Absolute Basophil Count 0.03 k/cumm (0.0-0.2); Absolute Neutrophil Count 9.37 k/cumm (1.2-6.7)
[2019-11-02 07:48] LABS: INR 1.8 (0.9-1.1); Prothrombin Time 17.8 sec (9.3-11.0)
[2019-11-02 07:51] LABS: Diff Comment Agrees w/ Instrument; Macrocytosis 2+; Nucleated RBC 1 /100WBC; Polychromasia Present
[2019-11-02 07:52] LABS: Poikilocytes 2+
[2019-11-02] MEDS: Ipratropium/Albuterol 4 GM 120 PUFF INH IH ×3 (08:19→20:10)
[2019-11-02] MEDS: Furosemide 100 MG/10 ML VIAL 80 MG IVP (08:54)
[2019-11-02] MEDS: metOLazone 2.5 MG TAB 5 MG PO (08:55)
[2019-11-02] MEDS: DULoxetine 20 MG CAP PO (08:55)
[2019-11-02] MEDS: Spironolactone 50 MG TAB 100 MG PO (08:55)
[2019-11-02] MEDS: Digoxin 0.125 MG TAB PO (08:55)
[2019-11-02] MEDS: Normal Saline Flush 10 ML SYR IVP ×2 (08:55→20:12)
[2019-11-02] MEDS: Metoprolol 25 MG TAB 37.5 MG PO ×2 (08:56→20:11)
[2019-11-02] MEDS: Allopurinol 300 MG TAB PO (08:56)
[2019-11-02] MEDS: predniSONE 5 MG TAB PO (08:56)
[2019-11-02] MEDS: Amoxicillin 875/Clav. 125 TAB PO ×2 (08:56→20:12)
[2019-11-02 09:38] LABS: BE 8.1 mmol/L (-3-3); HCO3 31 mmol/L (22-28); pCO2 40 mmHg (34-47); pO2 69 mmHg (83-108); sO2 94 % (94-98); tCO2 26 mmol/L (22-29)
[2019-11-02 09:40] LABS: FIO2 21 %; Site Left Radial
[2019-11-02] MEDS: Acetaminophen 325 MG TAB PO (11:17)
[2019-11-02 11:51] LABS: Bilirubin Negative (Negative); Blood Trace-intact (Negative); Clarity Clear (Clear); Glucose Negative (Negative); Ketones Negative (Negative); Leukocyte Esterase Negative (Negative); Nitrite Negative (Negative); Urobilinogen 0.2 EU/dL (Up TO 0.2); pH 7.5 (5-8)
[2019-11-02 12:03] LABS: Bacteria Rare HPF (Negative); C & S Indicated? No; Casts 3-5 Hyaline LPF (Negative); Crystals Negative HPF (Negative); Epithelial Cells Rare HPF (Negative); Mucus Negative (Negative); WBC 0-2 HPF (0-5)
[2019-11-02] MEDS: Insulin Aspart 300 UNITS/3 ML PEN SC ×3 (12:14→21:33)
--- NOTE | 2019-11-02 12:47 | PGE_ITS ---
Date of Service Date of service: 11/02/19 Time of Service: 12:48 Assessment and Plan Assessment and plan (1) Acute on chronic combined systolic (congestive) and diastolic (congestive) heart failure: Status: Acute Assessment and plan: ABG today suggests contraction alkalosis. Change to PO diuretics (bumed). Continue metolazone (consider making every other day) and aldactone. (2) Elevated troponin: Status: Acute Assessment and plan: Mild type 2 NSTEMI in setting of acute exacerbation of CHF. Neg MPI in 2017. There are LV wall motion abnormalities. May benefit from outpatient ischemic workup. Patient requests cardiac follow up at our facility on discharge. (3) REI (acute kidney injury): Status: Acute Assessment and plan: Acute on chronic kidney failure probably secondary to cardiorenal syndrome. Change diuretics to PO bumex. Continue to monitor I/O's and daily weights. (4) AF (paroxysmal atrial fibrillation): Status: Chronic Assessment and plan: No chage in tx today. (5) Dilated idiopathic cardiomyopathy: Status: Chronic Assessment and plan: S/p Negative MPI in 2017. S/p AICD - no evidence of sustained Vtach or Vfib since April. Discussed appearance of strips with [facility] cardiology - appears to be working well. Spikes on top of QRS complexes are supposed to be there, per [facility] cardiology. Will set up outpatient cardiology follow up with cardiology here. (6) COPD (chronic obstructive pulmonary disease): Status: Acute Assessment and plan: Continue prednisone, combivent, prn albuterol Leucocytosis better post initiation of augmentin - continue. Obtain sputum sample, add mucolytics. Mild PNA vs bronchitis. No true COPD exacerbation. (7) Non-insulin dependent diabetes mellitus: Status: Acute Assessment and plan: Cover with SSI (8) Supratherapeutic INR: Status: Resolved Assessment and plan: hold coumadin and recheck in am (9) Ambulatory dysfunction: Status: Acute Assessment and plan: Continue PT (10) DVT prophylaxis: Status: Acute Assessment and plan: Continue coumadin (11) Discharge planning issues: Status: Acute Assessment and plan: DNI, not DNR Palliative care evaluated the patient. Possible discharge home tomorrow with home health nursing and PT. Subjective Subjective Interval history since last seen: Mr Romano was reported to be confused this morning. Reportedly, he called his daughter today who also felt he was more confused. Remains hoarse. Reports that he has had some cough, mostly nonproductive. Denies dizziness, chest pain, shortness of breath, nausea. Complains of legs feeling weak. Complains of pain at the ABG site. Exam Narrative Exam Narrative: General: Very pleasant elderly obese males, A&Ox3, to me he looks sad, but at his mental baseline, sitting at the side of the bad, voice hoarse HEENT: EOMI, MMM, no JVD Cardiovascular: irregular rhythm, no m/r/g Lungs: Diminished breath sounds B, no crackles heard today. Gastrointestinal: soft, nontender, nondistended Extremities: no edema BLE, no c/c. Objective Objective Clinical Data: Abnormal lab results 11/02/19 11/02/19 11/02/19 Range/Units 06:15 06:15 06:15 WBC 12.66 H (4.4-10.8) k/cumm Hgb 17.6 H (13.5-17.5) g/dL Hct 51.3 H (40.0-50.0) % MCV 102.8 H (80-95) fL MCH 35.3 H (27.0-33.0) pg RDW 14.7 H (11.8-14.1) % MPV 11.2 H (8.0-11.0) fL Absolute Neutrophils 9.37 H (1.2-6.7) k/cumm Absolute Monocytes 1.65 H (0.11-0.7) k/cumm PT 17.8 H (9.3-11.0) sec INR 1.8 H (0.9-1.1) ABG pH (7.35-7.45) ABG pO2 (83-108) mmHg ABG HCO3 (22-28) mmol/L ABG Base Excess (-3-3) mmol/L Sodium 130 L (136-145) mmol/L Chloride 88 L (98-107) mmol/L Carbon Dioxide 32.4 H (21.0-32.0) mmol/L BUN 63 H (7-18) mg/dL Creatinine 1.81 H (0.70-1.30) mg/dL Glucose 139 H (74-106) mg/dL Urine Blood (Negative) Urine RBC (0-2) HPF 11/02/19 11/02/19 Range/Units 09:38 11:30 WBC (4.4-10.8) k/cumm Hgb (13.5-17.5) g/dL Hct (40.0-50.0) % MCV (80-95) fL MCH (27.0-33.0) pg RDW (11.8-14.1) % MPV (8.0-11.0) fL Absolute Neutrophils (1.2-6.7) k/cumm Absolute Monocytes (0.11-0.7) k/cumm PT (9.3-11.0) sec INR (0.9-1.1) ABG pH 7.50 H (7.35-7.45) ABG pO2 69 L (83-108) mmHg ABG HCO3 31 H (22-28) mmol/L ABG Base Excess 8.1 H (-3-3) mmol/L Sodium (136-145) mmol/L Chloride (98-107) mmol/L Carbon Dioxide (21.0-32.0) mmol/L BUN (7-18) mg/dL Creatinine (0.70-1.30) mg/dL Glucose (74-106) mg/dL Urine Blood Trace-intact H (Negative) Urine RBC 3-5 H (0-2) HPF Vital Signs Temperature 36.1 C L 11/02/19 11:30 Temperature Source Tympanic 11/02/19 11:30 Pulse 66 11/02/19 11:30 Pulse Rhythm Irregular 11/02/19 09:41 Respiratory Rate 15 11/02/19 11:30 Respiratory Effort Non-Labored 11/02/19 09:41 Respiratory Depth Normal 11/02/19 09:41 Respiratory Pattern Normal 11/02/19 09:41 Blood Pressure 131/83 11/02/19 11:30 Blood Pressure Position Supine 10/27/19 23:23 Pulse Oximetry 100 11/02/19 11:30 Oxygen Delivery Method Room Air 11/02/19 11:30 Oxygen Flow Rate 0 11/02/19 11:30 Pain Level 0 11/02/19 07:31 Comment 10/31/19 23:00 Intake & Output 11/01/19 11/02/19 11/02/19 23:59 11:59 23:59 Intake Total 550 / 1610 Output Total 925 / 1625 225 / 225 Balance -375 / -15 -225 / -225 Weight 82 kg Intake: IV 10 110 Oral 540 / 1500 Output: Urine 925 / 1625 225 / 225 Other: Urine Color Yellow Yellow Urine Appearance Clear Clear Urine Odor None Normal Comment Pt previously refused and continiously refusing urinary catheterizat ion. Voiding Methods Urinal Urinal Laboratory Results WBC 12.66 k/cumm (4.4-10.8) H 11/02/19 06:15 RBC 4.99 m/cumm (4.50-6.00) 11/02/19 06:15 Hgb 17.6 g/dL (13.5-17.5) H 11/02/19 06:15 Hct 51.3 % (40.0-50.0) H 11/02/19 06:15 MCV 102.8 fL (80-95) H 11/02/19 06:15 MCH 35.3 pg (27.0-33.0) H 11/02/19 06:15 MCHC 34.3 g/dL (32.0-36.0) 11/02/19 06:15 RDW 14.7 % (11.8-14.1) H 11/02/19 06:15 Plt Count 199 x1000/uL (130-400) 11/02/19 06:15 MPV 11.2 fL (8.0-11.0) H 11/02/19 06:15 Immature Gran % 0.6 % 11/02/19 06:15 Neutrophils % 74.0 11/02/19 06:15 Lymphocytes % 11.3 11/02/19 06:15 Atypical Lymphs % 2 10/27/19 23:40 Monocytes % 13.0 11/02/19 06:15 Eosinophils % 0.9 11/02/19 06:15 Basophils % 0.2 11/02/19 06:15 Absolute Neutrophils 9.37 k/cumm (1.2-6.7) H 11/02/19 06:15 Absolute Lymphocytes 1.43 k/cumm (1.2-3.4) 11/02/19 06:15 Absolute Monocytes 1.65 k/cumm (0.11-0.7) H 11/02/19 06:15 Absolute Eosinophils 0.11 k/cumm (0.0-0.7) 11/02/19 06:15 Absolute Basophils 0.03 k/cumm (0.0-0.2) 11/02/19 06:15 Nucleated RBCs 1 /100WBC 11/02/19 06:15 Differential Comment Agrees w/ instrument 11/02/19 06:15 RBC Morphology See below 11/02/19 06:15 Polychromasia Present 11/02/19 06:15 Hypochromasia 2+ 10/28/19 06:40 Poikilocytosis 2+ 11/02/19 06:15 Anisocytosis 1+ 10/28/19 06:40 Macrocytosis 2+ 11/02/19 06:15 PT 17.8 sec (9.3-11.0) H 11/02/19 06:15 INR 1.8 (0.9-1.1) H 11/02/19 06:15 ABG Sample Site Left radial 11/02/19 09:38 ABG pH 7.50 (7.35-7.45) H 11/02/19 09:38 ABG pCO2 40 mmHg (34-47) 11/02/19 09:38 ABG pO2 69 mmHg (83-108) L 11/02/19 09:38 ABG HCO3 31 mmol/L (22-28) H 11/02/19 09:38 ABG Total CO2 26 mmol/L (22-29) 11/02/19 09:38 ABG O2 Saturation 94 % (94-98) 11/02/19 09:38 ABG Base Excess 8.1 mmol/L (-3-3) H 11/02/19 09:38 FiO2 21 % 11/02/19 09:38 Sodium 130 mmol/L (136-145) L 11/02/19 06:15 Potassium 3.8 mmol/L (3.5-5.1) 11/02/19 06:15 Chloride 88 mmol/L (98-107) L 11/02/19 06:15 Carbon Dioxide 32.4 mmol/L (21.0-32.0) H 11/02/19 06:15 Anion Gap 9.6 mmol/L (3-11) 11/02/19 06:15 BUN 63 mg/dL (7-18) H 11/02/19 06:15 Creatinine 1.81 mg/dL (0.70-1.30) H 11/02/19 06:15 Estimated GFR/1.73 m2 36.54 (mL/min/1.73m2) 11/02/19 06:15 Glucose 139 mg/dL (74-106) H 11/02/19 06:15 Calcium 10.1 mg/dL (8.5-10.1) 11/02/19 06:15 Magnesium 2.3 mg/dL (1.8-2.4) 11/02/19 06:15 Troponin I 0.09 ng/mL (<0.06) H* 10/30/19 06:25 NT-Pro-B Natriuret Pep 6704 pg/mL (<300) H 10/31/19 06:36 Procalcitonin 0.4 ng/mL 11/01/19 06:35 TSH 1.16 uIU/mL (0.36-3.74) 10/28/19 06:40 Urine Color Yellow (Yellow) 11/02/19 11:30 Urine Clarity Clear (Clear) 11/02/19 11:30 Urine pH 7.5 (5-8) 11/02/19 11:30 Ur Specific [place] 1.020 (1.005-1.025) 11/02/19 11:30 Urine Protein Negative mg/dL (Negative) 11/02/19 11:30 Urine Ketones Negative mg/dL (Negative) 11/02/19 11:30 Urine Blood Trace-intact (Negative) H 11/02/19 11:30 Urine Nitrite Negative (Negative) 11/02/19 11:30 Urine Bilirubin Negative (Negative) 11/02/19 11:30 Urine Urobilinogen 0.2 EU/dL (Up TO 0.2) 11/02/19 11:30 Ur Leukocyte Esterase Negative (Negative) 11/02/19 11:30 Urine RBC 3-5 HPF (0-2) H 11/02/19 11:30 Urine WBC 0-2 HPF (0-5) 11/02/19 11:30 Ur Epithelial Cells Rare HPF (Negative) 11/02/19 11:30 Urine Crystals Negative HPF (Negative) 11/02/19 11:30 Urine Bacteria Rare HPF (Negative) 11/02/19 11:30 Urine Casts 3-5 hyaline LPF (Negative) 11/02/19 11:30 Urine Mucus Negative (Negative) 11/02/19 11:30 Urine Other Negative (Negative) 11/01/19 11:30 Ur Culture Indicated? No 11/02/19 11:30 Urine Glucose Negative mg/dL (Negative) 11/02/19 11:30 Digoxin 0.71 ng/mL (0.90-2.00) L 10/28/19 06:40 COVID-19 PCR Negative (Negative) 10/28/19 02:40 Nasopharyn COVID-19 PCR Not Applicable 10/28/19 02:40 M. pneumoniae Source Sputum 10/29/19 05:40 M. pneumoniae (PCR) Negative 10/29/19 05:40 Ur Strep pneumoniae Ag Negative (Negative) 10/29/19 14:25 Ref Test Perform Site [place] [facility] 10/28/19 02:40 CT head: No acute intracranial process.
[2019-11-02] MEDS: guaiFENesin 600 MG TABCR PO ×2 (13:09→20:12)
[2019-11-02] MEDS: Pantoprazole 40 MG TABCR PO (13:09)
--- NOTE | 2019-11-02 15:32 | PT.INNT ---
Date of service: 11/02/19 Time of Service: 03:32 PT Notes Visit Reasons: RLL PNA,ACUTE EXACERBATION OF CHRONIC COMBINED CHF Patient states that he is exhausted and hurting all over. He was seen seated at edge of chair, had oxygen supplementation on, and had difficulty speaking in between breaths. He states he had a restless night last night. Nurse Erick was updated and measured patient's SPO2 which yielded WNL values on 3L/min. Later in the afternoon, Srini requested to be seen tomorrow instead with hopes that he can feel better. Will plan on visiting patient for a session as scheduled.
[2019-11-02] MEDS: Bumetanide 1 MG TAB 2 MG PO (16:07)
[2019-11-02] MEDS: Lidocaine 5% Patch 2 PATCH TP (17:10)
[2019-11-02] MEDS: Sodium Chloride-Nasal SPRAY-ADULT 44 ML BTL NS ×2 (17:11→20:10)
--- NOTE | 2019-11-02 17:23 | PDOC.CMPRO ---
- If Service Date Differs Date of service: 11/02/19 Time of Service: 17:23 Care Management Progress Note S/O: Srini was lying in bed when CM met with him. He stated that today he is 'feeling rough'. He presented with shortness of breath when speaking. Per report, Srini had some med changes today and may be able to discharge tomorrow if he tolerates them well. CM met with Srini and his daughter, Juju, later in the day. CM assisted Srini with a DPOA (financial), and offered a long-term NED application for Juju to help Srini fill out. CM also offered resources for private caregivers in the area. CM will continue to follow. A: Srini is a 79 year old male admitted to [facility] on 10/28/19 for CHF exacerbation. P: No change in plan. Anticipate Srini will return home when medically cleared by provider with new Home Health nursing and PT/OT services. Srini will follow up with his PCP and discharge plan of care as directed. His daughter will drive him home when ready. CM will continue to support patient and discharge planning needs.
[2019-11-02] MEDS: Simvastatin 20 MG TAB PO (20:12)
[2019-11-02] MEDS: Warfarin 1 MG TAB PO (20:21)
[2019-11-02] MEDS: rOPINIRole 0.5 MG TAB PO (21:32)
[2019-11-02] MEDS: Insulin Glargine 300 UNITS/3 ML PEN 10 UNITS SC (21:32)
[2019-11-03] VITALS (7 sets, daily range): BP systolic 111–126; BP diastolic 72–82; PULSE 41–74; RESP 16–20; TEMP 36–37; O2SAT 90–100
[2019-11-03 07:37] LABS: Abs Immature Grans 0.09 k/cumm (0.0-0.09); HCT 52.2 % (40.0-50.0); Mean Corp. HGB Concentration 34.5 g/dL (32.0-36.0); Mean Corpuscular Volume 101.4 fL (80-95); RBC 5.15 m/cumm (4.50-6.00); RBC Distribution Width 14.6 % (11.8-14.1); White Blood Cell Count 13.55 k/cumm (4.4-10.8)
[2019-11-03 07:40] LABS: INR 1.9 (0.9-1.1); Prothrombin Time 18.8 sec (9.3-11.0)
[2019-11-03] MEDS: Allopurinol 300 MG TAB PO (08:19)
[2019-11-03] MEDS: metOLazone 2.5 MG TAB 5 MG PO (08:19)
[2019-11-03] MEDS: Spironolactone 50 MG TAB 100 MG PO (08:19)
[2019-11-03] MEDS: Amoxicillin 875/Clav. 125 TAB PO (08:19)
[2019-11-03] MEDS: predniSONE 5 MG TAB PO (08:19)
[2019-11-03] MEDS: DULoxetine 20 MG CAP PO (08:19)
[2019-11-03] MEDS: Pantoprazole 40 MG TABCR PO (08:20)
[2019-11-03] MEDS: guaiFENesin 600 MG TABCR PO ×2 (08:20→19:51)
[2019-11-03] MEDS: Digoxin 0.125 MG TAB PO (08:20)
[2019-11-03] MEDS: Metoprolol 25 MG TAB 37.5 MG PO ×2 (08:20→19:51)
[2019-11-03] MEDS: Insulin Aspart 300 UNITS/3 ML PEN SC ×4 (08:21→22:20)
[2019-11-03] MEDS: Sodium Chloride-Nasal SPRAY-ADULT 44 ML BTL NS ×4 (08:21→19:51)
[2019-11-03 08:25] LABS: Anion Gap 12.7 mmol/L (3-11); BUN 75 mg/dL (7-18); CO2 27.3 mmol/L (21.0-32.0); CREATININE 1.98 mg/dL (0.70-1.30); Calcium 10.2 mg/dL (8.5-10.1); Chloride 87 mmol/L (98-107); Estimated GFR 32.94 (mL/min/1.73m2); Glucose 152 mg/dL (74-106); Magnesium 2.4 mg/dL (1.8-2.4); Potassium 3.9 mmol/L (3.5-5.1); Sodium 127 mmol/L (136-145)
[2019-11-03 08:57] LABS: Absolute Eosinophil Count 0.14 k/cumm (0.0-0.7); Absolute Monocyte Count 0.95 k/cumm (0.11-0.7); Absolute Neutrophil Count 10.57 k/cumm (1.2-6.7); Platelet Count 219 x1000/uL (130-400)
[2019-11-03 08:58] LABS: Diff Comment Manual Differential; Macrocytosis 1+; Nucleated RBC 1 /100WBC
[2019-11-03] MEDS: Acetaminophen 325 MG TAB PO ×2 (09:33→17:40)
[2019-11-03] MEDS: Bumetanide 1 MG TAB 2 MG PO ×2 (09:33→15:44)
[2019-11-03] MEDS: Ipratropium/Albuterol 4 GM 120 PUFF INH IH ×4 (09:41→19:51)
[2019-11-03] MEDS: Nystatin 500000 UNITS/5 ML SUSP 5ML CUP PO ×4 (11:30→22:15)
--- NOTE | 2019-11-03 13:19 | PT.INTREAT ---
Date of service: 11/03/19 Time of Service: 11:00 PT Notes Visit Reasons: RLL PNA,ACUTE EXACERBATION OF CHRONIC COMBINED CHF Inpatient Physical Therapy Treatment Note [facility] Date: 11/03/19 PRECAUTIONS: Fall SUBJECTIVE: Irineo states that he is not feeling well today. He is hesitant to participate in PT, but is eventually agreeable. OBJECTIVE: PAIN: Patient c/o R leg pain BED MOBILITY/TRANSFERS Supine-sit: S Sit-supine: S Sit-stand: Min A Stand-sit: CGA GAIT Assistive Device: FWW Weight bearing: Full Assist: CGA Distance: 25' x2 Deviation: Stand rest, feels weak ASSESSMENT: Patient tolerated session with c/o feeling weak and of R LE pain. He was not able to tolerate more than 25' x2 with gait training due to not feeling well. Patient would benefit from continued participation in gait training as well as global strengthening for improved strength and mobility. PLAN: Continue with PTs POC TREATMENT CODE/TIME: 25 minutes; 02317 x2
--- NOTE | 2019-11-03 15:27 | W.DIABETESNO ---
Date of service: 11/03/19 Time of Service: 15:27 Diabetes Note NOTE: Srini asleep when visited to provide DM education. Will continue to attempt to provide education. Time Spent in Nutritional Counseling and Treatment: 0
--- NOTE | 2019-11-03 16:21 | CMPROGNOTE_ITS ---
- If Service Date Differs Date of service: 11/03/19 Time of Service: 16:22 Care Management Progress Note S/O: Srini was lying in bed when CM met with him today. When asked how he was feeling, he responded with I'm still here. He appeared to be tired, as he had trouble keeping his eyes open while CM was in the room. CM met with him again later in the day to discuss the option of going to a SNF for short term rehab prior to returning home. He stated that after this morning, I think it's a good idea. Srini agreed to have referrals sent to [facility] and the [facility] in [place]. Dr. Meyer from Palliative Care will meet with him again tomorrow. CM will continue to follow. A: Srini is a 79 year old male admitted to [facility] on 10/28/19 for CHF exacerbation. P: Anticipate Srini will return home when medically cleared by provider with new Home Health nursing and PT/OT services vs SNF for short term rehab prior to returning home. Srini will follow up with his PCP and discharge plan of care as directed. His daughter will drive him home when ready. CM will continue to support patient and discharge planning needs.
--- NOTE | 2019-11-03 16:28 | PGE_ITS ---
Date of Service Date of service: 11/03/19 Time of Service: 16:28 Assessment and Plan Assessment and plan (1) Pneumonia: Status: Acute Assessment and plan: This is likely the pneumonia that was present on admission. Did not respond to augmentin. Antibiotics upgraded to vancomycin/ceftriaxone. (2) Acute on chronic combined systolic (congestive) and diastolic (congestive) heart failure: Status: Acute Assessment and plan: Clinically, this is better. Given the rise in Cr, will back off of bumex and metolazone; also, decrease aldactone. Will titrate depending on daily weights. (3) Elevated troponin: Status: Acute Assessment and plan: Mild type 2 NSTEMI in setting of acute exacerbation of CHF. Neg MPI in 2017. There are LV wall motion abnormalities. May benefit from outpatient ischemic workup. Patient requests cardiac follow up at our facility on discharge. (4) REI (acute kidney injury): Status: Acute Assessment and plan: Acute on chronic kidney failure probably secondary to cardiorenal syndrome. As above - back of off bumex, d/c metolazone, and decrease aldactone. 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 (5) AF (paroxysmal atrial fibrillation): Status: Chronic Assessment and plan: No chage in tx today. (6) Dilated idiopathic cardiomyopathy: Status: Chronic Assessment and plan: S/p Negative MPI in 2017. S/p AICD - no evidence of sustained Vtach or Vfib since April. Discussed appearance of strips with [facility] cardiology - appears to be working well. Spikes on top of QRS complexes are supposed to be there, per [facility] cardiology. Will set up outpatient cardiology follow up with cardiology here. (7) COPD (chronic obstructive pulmonary disease): Status: Acute Assessment and plan: Continue prednisone, combivent, prn albuterol Read above re PNA. (8) Non-insulin dependent diabetes mellitus: Status: Acute Assessment and plan: Cover with SSI (9) Supratherapeutic INR: Status: Resolved Assessment and plan: Continue coumadin (10) Ambulatory dysfunction: Status: Acute Assessment and plan: Continue PT (11) DVT prophylaxis: Status: Acute Assessment and plan: Continue coumadin (12) Discharge planning issues: Status: Acute Assessment and plan: DNI, not DNR Palliative care evaluated the patient. Continues to require hospitalization. On discharge, SNF appears to be indicated. Subjective Subjective Interval history since last seen: Feels better this afternoon than he did this morning. Voice is still hoarse, but he denies sore throat or difficulty/pain with swallowing. States cough is there - nursing reports eubanks sputum, culture pending from this morning. Denies dizziness, chest pain, shortness of breath, nausea. Per care management, he does not appear as alert today as he did last week. His daughter is concerned about safety of him going home independently. Exam Narrative Exam Narrative: General: Very pleasant elderly obese males, A&Ox3, looks about the same as yesterday, conversant, but appears down HEENT: EOMI, MMM, no JVD Cardiovascular: irregular rhythm, no m/r/g Lungs: Diminished breath sounds B Gastrointestinal: soft, nontender, nondistended Extremities: no edema BLE, no c/c. Objective Objective Clinical Data: Abnormal lab results 11/03/19 11/03/19 11/03/19 Range/Units 07:05 07:05 07:05 WBC 13.55 H (4.4-10.8) k/cumm Hgb 18.0 H (13.5-17.5) g/dL Hct 52.2 H (40.0-50.0) % MCV 101.4 H (80-95) fL MCH 35.0 H (27.0-33.0) pg RDW 14.6 H (11.8-14.1) % Absolute Neutrophils 10.57 H (1.2-6.7) k/cumm Absolute Monocytes 0.95 H (0.11-0.7) k/cumm PT 18.8 H (9.3-11.0) sec INR 1.9 H (0.9-1.1) Sodium 127 L (136-145) mmol/L Chloride 87 L (98-107) mmol/L Anion Gap 12.7 H (3-11) mmol/L BUN 75 H (7-18) mg/dL Creatinine 1.98 H (0.70-1.30) mg/dL Glucose 152 H (74-106) mg/dL Calcium 10.2 H (8.5-10.1) mg/dL Vital Signs Temperature 37.0 C 11/03/19 16:18 Temperature Source Tympanic 11/03/19 16:18 Pulse 70 11/03/19 16:18 Pulse Rhythm Irregular 11/03/19 16:19 Respiratory Rate 16 11/03/19 16:18 Respiratory Effort 11/03/19 16:19 Respiratory Depth Normal 11/03/19 16:19 Respiratory Pattern Normal 11/03/19 16:19 Blood Pressure 113/76 11/03/19 16:18 Blood Pressure Position Supine 10/27/19 23:23 Pulse Oximetry 90 L 11/03/19 16:18 Oxygen Delivery Method Room Air 11/03/19 16:18 Oxygen Flow Rate 0 11/03/19 16:18 Pain Level 0 11/03/19 16:18 Comment 10/31/19 23:00 Intake & Output 11/02/19 11/03/19 11/03/19 23:59 11:59 23:59 Intake Total 260 / 510 240 / 490 250 / 490 Output Total 400 / 625 750 / 1403 653 / 1403 Balance -140 / -115 -510 / -913 -403 / -913 Weight 82 kg Intake: IV 10 10 250 / 250 Oral 250 / 500 240 / 240 Output: Urine 400 / 625 750 / 1250 500 / 1250 Post Void Residual 153 / 153 Other: Urine Color Yellow Yellow Yellow Urine Appearance Clear Clear Clear Urine Odor Normal Voiding Methods Urinal Urinal Urinal Laboratory Results WBC 13.55 k/cumm (4.4-10.8) H 11/03/19 07:05 RBC 5.15 m/cumm (4.50-6.00) 11/03/19 07:05 Hgb 18.0 g/dL (13.5-17.5) H 11/03/19 07:05 Hct 52.2 % (40.0-50.0) H 11/03/19 07:05 MCV 101.4 fL (80-95) H 11/03/19 07:05 MCH 35.0 pg (27.0-33.0) H 11/03/19 07:05 MCHC 34.5 g/dL (32.0-36.0) 11/03/19 07:05 RDW 14.6 % (11.8-14.1) H 11/03/19 07:05 Plt Count 219 x1000/uL (130-400) 11/03/19 07:05 MPV 11.0 fL (8.0-11.0) 11/03/19 07:05 Immature Gran % 0.0 % 11/03/19 07:05 Neutrophils % 78.0 11/03/19 07:05 Lymphocytes % 14.0 11/03/19 07:05 Atypical Lymphs % 2 10/27/19 23:40 Monocytes % 7.0 11/03/19 07:05 Eosinophils % 1.0 11/03/19 07:05 Basophils % 0.0 11/03/19 07:05 Absolute Neutrophils 10.57 k/cumm (1.2-6.7) H 11/03/19 07:05 Absolute Lymphocytes 1.90 k/cumm (1.2-3.4) 11/03/19 07:05 Absolute Monocytes 0.95 k/cumm (0.11-0.7) H 11/03/19 07:05 Absolute Eosinophils 0.14 k/cumm (0.0-0.7) 11/03/19 07:05 Absolute Basophils 0.00 k/cumm (0.0-0.2) 11/03/19 07:05 Nucleated RBCs 1 /100WBC 11/03/19 07:05 Differential Comment Manual differential 11/03/19 07:05 RBC Morphology See below 11/03/19 07:05 Polychromasia Present 11/02/19 06:15 Hypochromasia 2+ 10/28/19 06:40 Poikilocytosis 2+ 11/02/19 06:15 Anisocytosis 1+ 10/28/19 06:40 Macrocytosis 1+ 11/03/19 07:05 PT 18.8 sec (9.3-11.0) H 11/03/19 07:05 INR 1.9 (0.9-1.1) H 11/03/19 07:05 ABG Sample Site Left radial 11/02/19 09:38 ABG pH 7.50 (7.35-7.45) H 11/02/19 09:38 ABG pCO2 40 mmHg (34-47) 11/02/19 09:38 ABG pO2 69 mmHg (83-108) L 11/02/19 09:38 ABG HCO3 31 mmol/L (22-28) H 11/02/19 09:38 ABG Total CO2 26 mmol/L (22-29) 11/02/19 09:38 ABG O2 Saturation 94 % (94-98) 11/02/19 09:38 ABG Base Excess 8.1 mmol/L (-3-3) H 11/02/19 09:38 FiO2 21 % 11/02/19 09:38 Sodium 127 mmol/L (136-145) L 11/03/19 07:05 Potassium 3.9 mmol/L (3.5-5.1) 11/03/19 07:05 Chloride 87 mmol/L (98-107) L 11/03/19 07:05 Carbon Dioxide 27.3 mmol/L (21.0-32.0) 11/03/19 07:05 Anion Gap 12.7 mmol/L (3-11) H 11/03/19 07:05 BUN 75 mg/dL (7-18) H 11/03/19 07:05 Creatinine 1.98 mg/dL (0.70-1.30) H 11/03/19 07:05 Estimated GFR/1.73 m2 32.94 (mL/min/1.73m2) 11/03/19 07:05 Glucose 152 mg/dL (74-106) H 11/03/19 07:05 Calcium 10.2 mg/dL (8.5-10.1) H 11/03/19 07:05 Magnesium 2.4 mg/dL (1.8-2.4) 11/03/19 07:05 Troponin I 0.09 ng/mL (<0.06) H* 10/30/19 06:25 NT-Pro-B Natriuret Pep 6704 pg/mL (<300) H 10/31/19 06:36 Procalcitonin 0.4 ng/mL 11/01/19 06:35 TSH 1.16 uIU/mL (0.36-3.74) 10/28/19 06:40 Urine Color Yellow (Yellow) 11/02/19 11:30 Urine Clarity Clear (Clear) 11/02/19 11:30 Urine pH 7.5 (5-8) 11/02/19 11:30 Ur Specific [place] 1.020 (1.005-1.025) 11/02/19 11:30 Urine Protein Negative mg/dL (Negative) 11/02/19 11:30 Urine Ketones Negative mg/dL (Negative) 11/02/19 11:30 Urine Blood Trace-intact (Negative) H 11/02/19 11:30 Urine Nitrite Negative (Negative) 11/02/19 11:30 Urine Bilirubin Negative (Negative) 11/02/19 11:30 Urine Urobilinogen 0.2 EU/dL (Up TO 0.2) 11/02/19 11:30 Ur Leukocyte Esterase Negative (Negative) 11/02/19 11:30 Urine RBC 3-5 HPF (0-2) H 11/02/19 11:30 Urine WBC 0-2 HPF (0-5) 11/02/19 11:30 Ur Epithelial Cells Rare HPF (Negative) 11/02/19 11:30 Urine Crystals Negative HPF (Negative) 11/02/19 11:30 Urine Bacteria Rare HPF (Negative) 11/02/19 11:30 Urine Casts 3-5 hyaline LPF (Negative) 11/02/19 11:30 Urine Mucus Negative (Negative) 11/02/19 11:30 Urine Other Negative (Negative) 11/01/19 11:30 Ur Culture Indicated? No 11/02/19 11:30 Urine Glucose Negative mg/dL (Negative) 11/02/19 11:30 Digoxin 0.71 ng/mL (0.90-2.00) L 10/28/19 06:40 COVID-19 PCR Negative (Negative) 10/28/19 02:40 Nasopharyn COVID-19 PCR Not Applicable 10/28/19 02:40 M. pneumoniae Source Sputum 10/29/19 05:40 M. pneumoniae (PCR) Negative 10/29/19 05:40 Ur Strep pneumoniae Ag Negative (Negative) 10/29/19 14:25 Ref Test Perform Site [place] [facility] 10/28/19 02:40
[2019-11-03] MEDS: Normal Saline Flush 10 ML SYR IVP (16:54)
[2019-11-03] MEDS: cefTRIAXone 1 GM/50 ML BAG IVPB (16:54)
[2019-11-03] MEDS: Lidocaine 5% Patch 2 PATCH TP (17:40)
[2019-11-03] MEDS: Simvastatin 20 MG TAB PO (19:51)
[2019-11-03] MEDS: rOPINIRole 0.5 MG TAB PO (22:15)
[2019-11-03] MEDS: Insulin Glargine 300 UNITS/3 ML PEN 10 UNITS SC (22:21)
[2019-11-04] VITALS (7 sets, daily range): BP systolic 103–159; BP diastolic 69–96; PULSE 53–72; RESP 16–28; TEMP 36.3–37; O2SAT 91–96
[2019-11-04] MEDS: VANCOMYCIN 750 MG in Normal Saline 250 ML 166.667 MG IV (04:04)
[2019-11-04] MEDS: Nystatin 500000 UNITS/5 ML SUSP 5ML CUP PO ×5 (05:56→21:55)
[2019-11-04] MEDS: LIDOCAINE Patch Removal TP (05:57)
[2019-11-04 07:28] LABS: HCT 52.8 % (40.0-50.0); HGB 18.4 g/dL (13.5-17.5); Mean Corp. HGB Concentration 34.8 g/dL (32.0-36.0); Mean Corpuscular Volume 100.6 fL (80-95); RBC 5.25 m/cumm (4.50-6.00); RBC Distribution Width 14.4 % (11.8-14.1); White Blood Cell Count 13.93 k/cumm (4.4-10.8)
[2019-11-04 07:40] LABS: CREATININE 2.12 mg/dL (0.70-1.30); Calcium 9.5 mg/dL (8.5-10.1); Chloride 87 mmol/L (98-107); Estimated GFR 30.44 (mL/min/1.73m2); Glucose 171 mg/dL (74-106); Potassium 3.7 mmol/L (3.5-5.1); Sodium 127 mmol/L (136-145)
[2019-11-04 07:43] LABS: BUN 82 mg/dL (7-18)
[2019-11-04 07:44] LABS: INR 2.3 (0.9-1.1); Prothrombin Time 22.3 sec (9.3-11.0)
[2019-11-04] MEDS: Ipratropium/Albuterol 4 GM 120 PUFF INH IH ×4 (07:54→20:24)
[2019-11-04 07:58] LABS: Absolute Lymphocyte Count 0.84 k/cumm (1.2-3.4); Absolute Monocyte Count 1.81 k/cumm (0.11-0.7); Absolute Neutrophil Count 11.28 k/cumm (1.2-6.7); Diff Comment Manual Differential; Macrocytosis 2+; Platelet Count 221 x1000/uL (130-400)
[2019-11-04 08:16] LABS: Procalcitonin 0.3 ng/mL
[2019-11-04 08:23] LABS: Digoxin 1.42 ng/mL (0.90-2.00); Magnesium 2.3 mg/dL (1.8-2.4)
[2019-11-04] MEDS: DULoxetine 20 MG CAP PO (08:42)
[2019-11-04] MEDS: guaiFENesin 600 MG TABCR PO ×2 (08:42→20:24)
[2019-11-04] MEDS: Bumetanide 1 MG TAB PO ×2 (08:42→16:08)
[2019-11-04] MEDS: Spironolactone 50 MG TAB 25 MG PO (08:43)
[2019-11-04] MEDS: Metoprolol 25 MG TAB 37.5 MG PO ×2 (08:43→20:24)
[2019-11-04] MEDS: Allopurinol 300 MG TAB PO (08:44)
[2019-11-04] MEDS: predniSONE 5 MG TAB PO (08:45)
[2019-11-04] MEDS: Pantoprazole 40 MG TABCR PO (08:45)
[2019-11-04] MEDS: Insulin Aspart 300 UNITS/3 ML PEN SC ×4 (08:46→21:56)
[2019-11-04] MEDS: Normal Saline Flush 10 ML SYR IVP ×2 (08:46→12:20)
[2019-11-04] MEDS: Digoxin 0.125 MG TAB PO (08:59)
[2019-11-04] MEDS: Albuterol HFA 8 GM 60 PUFF INH IH (10:56)
[2019-11-04 11:47] LABS: C-Reactive Protein 1.56 mg/dL (0.0-0.3)
[2019-11-04] MEDS: CEFEPIME 2 GM in Normal Saline 100 ML IVPB (12:19)
[2019-11-04] MEDS: Normal Saline 500 ML IV (12:23)
--- NOTE | 2019-11-04 12:30 | PT.INTREAT ---
Date of service: 11/04/19 Time of Service: 12:32 PT Notes Visit Reasons: RLL PNA,ACUTE EXACERBATION OF CHRONIC COMBINED CHF Inpatient Physical Therapy Treatment Note [facility] Date: 11/04/19 PRECAUTIONS: Fall SUBJECTIVE: Irineo states that he is still not feeling well today. He is hesitant to participate in PT, but is eventually agreeable. OBJECTIVE: PAIN: No c/o pain BED MOBILITY/TRANSFERS Supine-sit: S Sit-supine: S Sit-stand: Min A Stand-sit: CGA GAIT Assistive Device: FWW Weight bearing: Full Assist: CGA Distance: 25' + 5' Deviation: Seated rest, feels weak ASSESSMENT: Patient tolerated session with c/o feeling weak and tired. He was not able to tolerate more than 25' with gait training due to not feeling well. Patient would benefit from continued participation in gait training as well as global strengthening for improved strength and mobility. PLAN: Continue with PTs POC TREATMENT CODE/TIME: 20 minutes; [id number]
--- NOTE | 2019-11-04 13:45 | PCPN_ITS ---
Date of service: 11/04/19 Assessment and Plan Assessment and plan (1) Palliative care patient: Status: Chronic Assessment and plan: Mr Romano is not improving as expected. He appears weaker and more fragile. He is unable to stand and pivot, as he could last week. Not sure how much is due to medications, how much to progression of illness. Will continue to follow. Explained to daughter that [facility] Care team available when I am away for next 2 weeks. (2) Chronic fatigue: Status: Chronic Assessment and plan: medical resilience minimal daughter reports decline over last 3 months has been dramatic (3) Frailty syndrome in geriatric patient: Status: Chronic Assessment and plan: co-morbidities are catching up with him will need to go to rehab upon discharge CM had worked with him on this; he had agreed; not wanting to today because of the visiting policy there daugther concerned that he will slip away without support and visits from his family she was asking about swing bed at [facility] CM addressing this (4) Cardiomyopathy: Status: Chronic Assessment and plan: diuresiing now hard balance between fluids for infection and diuresis for CHF Qualifiers: Cardiomyopathy type: dilated Qualified Code(s): I42.0 - Dilated cardiomyopathy (5) Dilated idiopathic cardiomyopathy: Status: Chronic (6) Right lower lobe pneumonia: Status: Acute Assessment and plan: Dr Gar changed Mr Romano's antibitoics today may see greater improvement in pulmonary status with this change (7) Goals of care, counseling/discussion: Status: Acute Assessment and plan: wants no resuscitation needs to ensure that COLST goes with him to rehab, whereever he goes had AD but no COLST until this admission (8) DNR (do not resuscitate): Status: Acute (9) DNI (do not intubate): Status: Acute Subjective Subjective Patient reports: still having pain and shortness of breath Interval history since last seen: I saw Srini in [facility] where he was having blood cultures drawn. He is a very difficult draw. He was requiring ultrasound to find his veins. He was uncomfortable and unable to talk to me at length. I ended up speaking with his daughter, his nurse and his medicare sales representative, and then discussing his management with his hospitalist, Dr Gar. He did say I'm tired. I'm so tired. He could not elaborate if he meant in the short term or emt intermediate. He certainly appears much weaker and more fragile than last week. He is too weak to get OOB. He requires 2 person assist at this time. (He was able to get from bed to chair with minimal assist last week). He is diuresing from his CHF; he is very sedated. He is back up on his diazepam at 2 mg tid. His PCP, per his daughter, was weaning him off this prior to this admission. Unclear if his severe sedation/exhaustion/weakness is due to medication or progression of illness. Exam Narrative Exam Narrative: General: elderly obese males, somnolent today, surrounded by nurses and lab techs drawing cultures looks uncomfortable HEENT: EOMI, MMM, no JVD Cardiovascular: irregular rhythm, no m/r/g Lungs: Diminished breath sounds B Gastrointestinal: soft, nontender, nondistended Extremities: +1 edema BLE, cool Neuro: oriented x 2, lethargic, not alert musculo: weak skin: bruising from phelbotomy psych: flatter, apathetic, withdrawn Objective Objective Clinical Data: Abnormal lab results 11/04/19 11/04/19 11/04/19 Range/Units 07:15 07:15 07:15 WBC 13.93 H (4.4-10.8) k/cumm Hgb 18.4 H (13.5-17.5) g/dL Hct 52.8 H (40.0-50.0) % MCV 100.6 H (80-95) fL MCH 35.0 H (27.0-33.0) pg RDW 14.4 H (11.8-14.1) % Absolute Neutrophils 11.28 H (1.2-6.7) k/cumm Absolute Lymphocytes 0.84 L (1.2-3.4) k/cumm Absolute Monocytes 1.81 H (0.11-0.7) k/cumm PT 22.3 H (9.3-11.0) sec INR 2.3 H (0.9-1.1) Sodium 127 L (136-145) mmol/L Chloride 87 L (98-107) mmol/L Anion Gap 12.0 H (3-11) mmol/L BUN 82 H* (7-18) mg/dL Creatinine 2.12 H (0.70-1.30) mg/dL Glucose 171 H (74-106) mg/dL C-Reactive Protein (0.0-0.3) mg/dL 11/04/19 Range/Units 11:15 WBC (4.4-10.8) k/cumm Hgb (13.5-17.5) g/dL Hct (40.0-50.0) % MCV (80-95) fL MCH (27.0-33.0) pg RDW (11.8-14.1) % Absolute Neutrophils (1.2-6.7) k/cumm Absolute Lymphocytes (1.2-3.4) k/cumm Absolute Monocytes (0.11-0.7) k/cumm PT (9.3-11.0) sec INR (0.9-1.1) Sodium (136-145) mmol/L Chloride (98-107) mmol/L Anion Gap (3-11) mmol/L BUN (7-18) mg/dL Creatinine (0.70-1.30) mg/dL Glucose (74-106) mg/dL C-Reactive Protein 1.56 H (0.0-0.3) mg/dL Vital Signs Temperature 98.6 F 11/04/19 10:35 Temperature Source Tympanic 11/04/19 10:35 Pulse 53 L 11/04/19 10:35 Pulse Rhythm Irregular 11/04/19 07:30 Respiratory Rate 28 H 11/04/19 10:35 Respiratory Effort Non-Labored 11/04/19 07:30 Respiratory Depth Normal 11/04/19 07:30 Respiratory Pattern Normal 11/04/19 07:30 Blood Pressure 117/84 11/04/19 10:35 Blood Pressure Position Supine 10/27/19 23:23 Pulse Oximetry 91 L 11/04/19 10:35 Oxygen Delivery Method Room Air 11/04/19 10:35 Oxygen Flow Rate 0 11/04/19 10:35 Pain Level 0 11/04/19 10:35 Comment 10/31/19 23:00 Intake & Output 11/03/19 11/04/19 11/04/19 23:59 11:59 23:59 Intake Total 540 / 780 860 / 980 120 / 980 Output Total 1653 / 2403 1136 / 1136 Balance -1113 / -1623 -276 / -156 120 / -156 Weight 179 lb 10.828 oz Intake: IV 300 / 300 260 / 260 Oral 240 / 480 600 / 720 120 / 720 Output: Urine 1500 / 2250 1100 / 1100 Post Void Residual 153 / 153 36 / 36 Other: Urine Color Yellow Yellow Urine Appearance Clear Clear Urine Odor None None Comment pT voided some in the urinal and then in the toilet. Stool Size Moderate Stool Characteristics Soft Formed Voiding Methods Toilet Urinal Laboratory Results WBC 13.93 k/cumm (4.4-10.8) H 11/04/19 07:15 RBC 5.25 m/cumm (4.50-6.00) 11/04/19 07:15 Hgb 18.4 g/dL (13.5-17.5) H 11/04/19 07:15 Hct 52.8 % (40.0-50.0) H 11/04/19 07:15 MCV 100.6 fL (80-95) H 11/04/19 07:15 MCH 35.0 pg (27.0-33.0) H 11/04/19 07:15 MCHC 34.8 g/dL (32.0-36.0) 11/04/19 07:15 RDW 14.4 % (11.8-14.1) H 11/04/19 07:15 Plt Count 221 x1000/uL (130-400) 11/04/19 07:15 MPV 11.0 fL (8.0-11.0) 11/04/19 07:15 Immature Gran % 0.0 % 11/04/19 07:15 Neutrophils % 80.0 11/04/19 07:15 Band Neutrophils % 1.0 % 11/04/19 07:15 Lymphocytes % 6.0 11/04/19 07:15 Atypical Lymphs % 2 10/27/19 23:40 Monocytes % 13.0 11/04/19 07:15 Eosinophils % 0.0 11/04/19 07:15 Basophils % 0.0 11/04/19 07:15 Absolute Neutrophils 11.28 k/cumm (1.2-6.7) H 11/04/19 07:15 Absolute Lymphocytes 0.84 k/cumm (1.2-3.4) L 11/04/19 07:15 Absolute Monocytes 1.81 k/cumm (0.11-0.7) H 11/04/19 07:15 Absolute Eosinophils 0.00 k/cumm (0.0-0.7) 11/04/19 07:15 Absolute Basophils 0.00 k/cumm (0.0-0.2) 11/04/19 07:15 Nucleated RBCs 1 /100WBC 11/03/19 07:05 Differential Comment Manual differential 11/04/19 07:15 RBC Morphology See below 11/04/19 07:15 Polychromasia Present 11/02/19 06:15 Hypochromasia 2+ 10/28/19 06:40 Poikilocytosis 2+ 11/02/19 06:15 Anisocytosis 1+ 10/28/19 06:40 Macrocytosis 2+ 11/04/19 07:15 PT 22.3 sec (9.3-11.0) H 11/04/19 07:15 INR 2.3 (0.9-1.1) H 11/04/19 07:15 ABG Sample Site Left radial 11/02/19 09:38 ABG pH 7.50 (7.35-7.45) H 11/02/19 09:38 ABG pCO2 40 mmHg (34-47) 11/02/19 09:38 ABG pO2 69 mmHg (83-108) L 11/02/19 09:38 ABG HCO3 31 mmol/L (22-28) H 11/02/19 09:38 ABG Total CO2 26 mmol/L (22-29) 11/02/19 09:38 ABG O2 Saturation 94 % (94-98) 11/02/19 09:38 ABG Base Excess 8.1 mmol/L (-3-3) H 11/02/19 09:38 FiO2 21 % 11/02/19 09:38 Sodium 127 mmol/L (136-145) L 11/04/19 07:15 Potassium 3.7 mmol/L (3.5-5.1) 11/04/19 07:15 Chloride 87 mmol/L (98-107) L 11/04/19 07:15 Carbon Dioxide 28.0 mmol/L (21.0-32.0) 11/04/19 07:15 Anion Gap 12.0 mmol/L (3-11) H 11/04/19 07:15 BUN 82 mg/dL (7-18) H* 11/04/19 07:15 Creatinine 2.12 mg/dL (0.70-1.30) H 11/04/19 07:15 Estimated GFR/1.73 m2 30.44 (mL/min/1.73m2) 11/04/19 07:15 Glucose 171 mg/dL (74-106) H 11/04/19 07:15 Calcium 9.5 mg/dL (8.5-10.1) 11/04/19 07:15 Magnesium 2.3 mg/dL (1.8-2.4) 11/04/19 07:15 Troponin I 0.09 ng/mL (<0.06) H* 10/30/19 06:25 C-Reactive Protein 1.56 mg/dL (0.0-0.3) H 11/04/19 11:15 NT-Pro-B Natriuret Pep 6704 pg/mL (<300) H 10/31/19 06:36 Procalcitonin 0.3 ng/mL 11/04/19 07:15 TSH 1.16 uIU/mL (0.36-3.74) 10/28/19 06:40 Urine Color Yellow (Yellow) 11/02/19 11:30 Urine Clarity Clear (Clear) 11/02/19 11:30 Urine pH 7.5 (5-8) 11/02/19 11:30 Ur Specific [place] 1.020 (1.005-1.025) 11/02/19 11:30 Urine Protein Negative mg/dL (Negative) 11/02/19 11:30 Urine Ketones Negative mg/dL (Negative) 11/02/19 11:30 Urine Blood Trace-intact (Negative) H 11/02/19 11:30 Urine Nitrite Negative (Negative) 11/02/19 11:30 Urine Bilirubin Negative (Negative) 11/02/19 11:30 Urine Urobilinogen 0.2 EU/dL (Up TO 0.2) 11/02/19 11:30 Ur Leukocyte Esterase Negative (Negative) 11/02/19 11:30 Urine RBC 3-5 HPF (0-2) H 11/02/19 11:30 Urine WBC 0-2 HPF (0-5) 11/02/19 11:30 Ur Epithelial Cells Rare HPF (Negative) 11/02/19 11:30 Urine Crystals Negative HPF (Negative) 11/02/19 11:30 Urine Bacteria Rare HPF (Negative) 11/02/19 11:30 Urine Casts 3-5 hyaline LPF (Negative) 11/02/19 11:30 Urine Mucus Negative (Negative) 11/02/19 11:30 Urine Other Negative (Negative) 11/01/19 11:30 Ur Culture Indicated? No 11/02/19 11:30 Urine Glucose Negative mg/dL (Negative) 11/02/19 11:30 Digoxin 1.42 ng/mL (0.90-2.00) 11/04/19 07:15 COVID-19 PCR Negative (Negative) 10/28/19 02:40 Nasopharyn COVID-19 PCR Not Applicable 10/28/19 02:40 M. pneumoniae Source Sputum 10/29/19 05:40 M. pneumoniae (PCR) Negative 10/29/19 05:40 Ur Strep pneumoniae Ag Negative (Negative) 10/29/19 14:25 [facility] 10/28/19 02:40
--- NOTE | 2019-11-04 14:30 | CMPROGNOTE_ITS ---
- If Service Date Differs Date of service: 11/04/19 Time of Service: 14:30 Care Management Progress Note S/O: Srini was lying in bed when CM met with him today. His daughter was in the room, as she asked to be present for the Palliative meeting today with Dr. Meyer. Srini stated that he was still not feeling well. Per report, his abx were changed today to treat his pneumonia. Also, the medication for his anxiety was reduced down to his previous home regiment. He has been reporting that he is very tired, and has been having trouble keeping his eyes open over the past two days. Per MD, this medication change may improve his fatigue. CM spoke with Juju extensively regarding discharge planning. The recommendation is that Srini go to a short term rehab facility prior to returning home, although he is currently not agreeable to that plan. CM made calls to local facilities regarding visitation policies, all of which are accepting outside visits with precautions in place, after the 14 day quarantine. CM will continue to support discharge planning considerations. A: Srini is a 79 year old male admitted to [facility] on 10/28/19 for CHF exacerbation. P: Anticipate Srini will return home when medically cleared by provider with new Home Health nursing and PT/OT services vs SNF for short term rehab prior to returning home. Srini will follow up with his PCP and discharge plan of care as directed. His daughter will drive him home when ready. CM will continue to support patient and discharge planning needs.
--- NOTE | 2019-11-04 16:21 | W.PM.PROGNOT ---
Date of Service Date of service: 11/04/19 Time of Service: 16:21 Assessment and Plan Assessment and plan (1) Pneumonia: Status: Acute Assessment and plan: This is likely the pneumonia that was present on admission. Did not respond to augmentin. Change abx to vanco/cefepime. Trend procalcitonin, repeat CXR in am. (2) Acute on chronic combined systolic (congestive) and diastolic (congestive) heart failure: Status: Acute Assessment and plan: About the same as yesterday, euvolemic. Monitor Cr as we have bdecreased bumex and aldactone and d/c'ed metolazone. (3) Elevated troponin: Status: Acute Assessment and plan: Mild type 2 NSTEMI in setting of acute exacerbation of CHF. Neg MPI in 2017. There are LV wall motion abnormalities. May benefit from outpatient ischemic workup. Patient requests cardiac follow up at our facility on discharge. (4) REI (acute kidney injury): Status: Acute Assessment and plan: Acute on chronic kidney failure probably secondary to cardiorenal syndrome. As above - back of off bumex, d/c metolazone, and decrease aldactone. 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 (5) AF (paroxysmal atrial fibrillation): Status: Chronic Assessment and plan: No chage in tx. (6) Dilated idiopathic cardiomyopathy: Status: Chronic Assessment and plan: S/p Negative MPI in 2017. S/p AICD - no evidence of sustained Vtach or Vfib since April. Discussed appearance of strips with [facility] cardiology - appears to be working well. Spikes on top of QRS complexes are supposed to be there, per [facility] cardiology. Will set up outpatient cardiology follow up with cardiology here. (7) COPD (chronic obstructive pulmonary disease): Status: Acute Assessment and plan: Continue prednisone, combivent, prn albuterol Read above re PNA. (8) Non-insulin dependent diabetes mellitus: Status: Acute Assessment and plan: Cover with SSI (9) Supratherapeutic INR: Status: Resolved Assessment and plan: Continue coumadin (10) Ambulatory dysfunction: Status: Acute Assessment and plan: Continue PT (11) DVT prophylaxis: Status: Acute Assessment and plan: Continue coumadin (12) Discharge planning issues: Status: Acute Assessment and plan: DNI, not DNR Palliative care on board Continues to require hospitalization. On discharge, SNF indicated. Subjective Subjective Interval history since last seen: Mr Romano had a busy day today. He is tired. Denies dizziness, chest pain, shortness of breath, nausea. He reports R buttock/hip pain and R knee pain - since the fall. He continues to have a hoarse voice. He is asking when he can go home. Exam Narrative Exam Narrative: General: Very pleasant elderly obese males, A&Ox3, more somnolent today HEENT: EOMI, MMM, no JVD Cardiovascular: irregular rhythm, no m/r/g Lungs: Diminished breath sounds B Gastrointestinal: soft, nontender, nondistended Extremities: trace edema BLE, no c/c. Objective Objective Clinical Data: Abnormal lab results 11/04/19 11/04/19 11/04/19 Range/Units 07:15 07:15 07:15 WBC 13.93 H (4.4-10.8) k/cumm Hgb 18.4 H (13.5-17.5) g/dL Hct 52.8 H (40.0-50.0) % MCV 100.6 H (80-95) fL MCH 35.0 H (27.0-33.0) pg RDW 14.4 H (11.8-14.1) % Absolute Neutrophils 11.28 H (1.2-6.7) k/cumm Absolute Lymphocytes 0.84 L (1.2-3.4) k/cumm Absolute Monocytes 1.81 H (0.11-0.7) k/cumm PT 22.3 H (9.3-11.0) sec INR 2.3 H (0.9-1.1) Sodium 127 L (136-145) mmol/L Chloride 87 L (98-107) mmol/L Anion Gap 12.0 H (3-11) mmol/L BUN 82 H* (7-18) mg/dL Creatinine 2.12 H (0.70-1.30) mg/dL Glucose 171 H (74-106) mg/dL C-Reactive Protein (0.0-0.3) mg/dL 11/04/19 Range/Units 11:15 WBC (4.4-10.8) k/cumm Hgb (13.5-17.5) g/dL Hct (40.0-50.0) % MCV (80-95) fL MCH (27.0-33.0) pg RDW (11.8-14.1) % Absolute Neutrophils (1.2-6.7) k/cumm Absolute Lymphocytes (1.2-3.4) k/cumm Absolute Monocytes (0.11-0.7) k/cumm PT (9.3-11.0) sec INR (0.9-1.1) Sodium (136-145) mmol/L Chloride (98-107) mmol/L Anion Gap (3-11) mmol/L BUN (7-18) mg/dL Creatinine (0.70-1.30) mg/dL Glucose (74-106) mg/dL C-Reactive Protein 1.56 H (0.0-0.3) mg/dL Vital Signs Temperature 37 C 11/04/19 10:35 Temperature Source Tympanic 11/04/19 10:35 Pulse 53 L 11/04/19 10:35 Pulse Rhythm Irregular 11/04/19 07:30 Respiratory Rate 28 H 11/04/19 10:35 Respiratory Effort Non-Labored 11/04/19 07:30 Respiratory Depth Normal 11/04/19 07:30 Respiratory Pattern Normal 11/04/19 07:30 Blood Pressure 117/84 11/04/19 10:35 Blood Pressure Position Supine 10/27/19 23:23 Pulse Oximetry 91 L 11/04/19 10:35 Oxygen Delivery Method Room Air 11/04/19 10:35 Oxygen Flow Rate 0 11/04/19 10:35 Pain Level 0 11/04/19 10:35 Comment 10/31/19 23:00 Intake & Output 11/03/19 11/04/19 11/04/19 23:59 11:59 23:59 Intake Total 540 / 780 860 / 980 120 / 980 Output Total 1653 / 2403 1136 / 1136 Balance -1113 / -1623 -276 / -156 120 / -156 Weight 81.5 kg Intake: IV 300 / 300 260 / 260 Oral 240 / 480 600 / 720 120 / 720 Output: Urine 1500 / 2250 1100 / 1100 Post Void Residual 153 / 153 36 / 36 Other: Urine Color Yellow Yellow Yellow Urine Appearance Clear Clear Clear Urine Odor None None Comment pT voided some in the urinal and then in the toilet. Stool Size Moderate Stool Characteristics Soft Formed Voiding Methods Toilet Urinal Urinal Laboratory Results WBC 13.93 k/cumm (4.4-10.8) H 11/04/19 07:15 RBC 5.25 m/cumm (4.50-6.00) 11/04/19 07:15 Hgb 18.4 g/dL (13.5-17.5) H 11/04/19 07:15 Hct 52.8 % (40.0-50.0) H 11/04/19 07:15 MCV 100.6 fL (80-95) H 11/04/19 07:15 MCH 35.0 pg (27.0-33.0) H 11/04/19 07:15 MCHC 34.8 g/dL (32.0-36.0) 11/04/19 07:15 RDW 14.4 % (11.8-14.1) H 11/04/19 07:15 Plt Count 221 x1000/uL (130-400) 11/04/19 07:15 MPV 11.0 fL (8.0-11.0) 11/04/19 07:15 Immature Gran % 0.0 % 11/04/19 07:15 Neutrophils % 80.0 11/04/19 07:15 Band Neutrophils % 1.0 % 11/04/19 07:15 Lymphocytes % 6.0 11/04/19 07:15 Atypical Lymphs % 2 10/27/19 23:40 Monocytes % 13.0 11/04/19 07:15 Eosinophils % 0.0 11/04/19 07:15 Basophils % 0.0 11/04/19 07:15 Absolute Neutrophils 11.28 k/cumm (1.2-6.7) H 11/04/19 07:15 Absolute Lymphocytes 0.84 k/cumm (1.2-3.4) L 11/04/19 07:15 Absolute Monocytes 1.81 k/cumm (0.11-0.7) H 11/04/19 07:15 Absolute Eosinophils 0.00 k/cumm (0.0-0.7) 11/04/19 07:15 Absolute Basophils 0.00 k/cumm (0.0-0.2) 11/04/19 07:15 Nucleated RBCs 1 /100WBC 11/03/19 07:05 Differential Comment Manual differential 11/04/19 07:15 RBC Morphology See below 11/04/19 07:15 Polychromasia Present 11/02/19 06:15 Hypochromasia 2+ 10/28/19 06:40 Poikilocytosis 2+ 11/02/19 06:15 Anisocytosis 1+ 10/28/19 06:40 Macrocytosis 2+ 11/04/19 07:15 PT 22.3 sec (9.3-11.0) H 11/04/19 07:15 INR 2.3 (0.9-1.1) H 11/04/19 07:15 ABG Sample Site Left radial 11/02/19 09:38 ABG pH 7.50 (7.35-7.45) H 11/02/19 09:38 ABG pCO2 40 mmHg (34-47) 11/02/19 09:38 ABG pO2 69 mmHg (83-108) L 11/02/19 09:38 ABG HCO3 31 mmol/L (22-28) H 11/02/19 09:38 ABG Total CO2 26 mmol/L (22-29) 11/02/19 09:38 ABG O2 Saturation 94 % (94-98) 11/02/19 09:38 ABG Base Excess 8.1 mmol/L (-3-3) H 11/02/19 09:38 FiO2 21 % 11/02/19 09:38 Sodium 127 mmol/L (136-145) L 11/04/19 07:15 Potassium 3.7 mmol/L (3.5-5.1) 11/04/19 07:15 Chloride 87 mmol/L (98-107) L 11/04/19 07:15 Carbon Dioxide 28.0 mmol/L (21.0-32.0) 11/04/19 07:15 Anion Gap 12.0 mmol/L (3-11) H 11/04/19 07:15 BUN 82 mg/dL (7-18) H* 11/04/19 07:15 Creatinine 2.12 mg/dL (0.70-1.30) H 11/04/19 07:15 Estimated GFR/1.73 m2 30.44 (mL/min/1.73m2) 11/04/19 07:15 Glucose 171 mg/dL (74-106) H 11/04/19 07:15 Calcium 9.5 mg/dL (8.5-10.1) 11/04/19 07:15 Magnesium 2.3 mg/dL (1.8-2.4) 11/04/19 07:15 Troponin I 0.09 ng/mL (<0.06) H* 10/30/19 06:25 C-Reactive Protein 1.56 mg/dL (0.0-0.3) H 11/04/19 11:15 NT-Pro-B Natriuret Pep 6704 pg/mL (<300) H 10/31/19 06:36 Procalcitonin 0.3 ng/mL 11/04/19 07:15 TSH 1.16 uIU/mL (0.36-3.74) 10/28/19 06:40 Urine Color Yellow (Yellow) 11/02/19 11:30 Urine Clarity Clear (Clear) 11/02/19 11:30 Urine pH 7.5 (5-8) 11/02/19 11:30 Ur Specific [place] 1.020 (1.005-1.025) 11/02/19 11:30 Urine Protein Negative mg/dL (Negative) 11/02/19 11:30 Urine Ketones Negative mg/dL (Negative) 11/02/19 11:30 Urine Blood Trace-intact (Negative) H 11/02/19 11:30 Urine Nitrite Negative (Negative) 11/02/19 11:30 Urine Bilirubin Negative (Negative) 11/02/19 11:30 Urine Urobilinogen 0.2 EU/dL (Up TO 0.2) 11/02/19 11:30 Ur Leukocyte Esterase Negative (Negative) 11/02/19 11:30 Urine RBC 3-5 HPF (0-2) H 11/02/19 11:30 Urine WBC 0-2 HPF (0-5) 11/02/19 11:30 Ur Epithelial Cells Rare HPF (Negative) 11/02/19 11:30 Urine Crystals Negative HPF (Negative) 11/02/19 11:30 Urine Bacteria Rare HPF (Negative) 11/02/19 11:30 Urine Casts 3-5 hyaline LPF (Negative) 11/02/19 11:30 Urine Mucus Negative (Negative) 11/02/19 11:30 Urine Other Negative (Negative) 11/01/19 11:30 Ur Culture Indicated? No 11/02/19 11:30 Urine Glucose Negative mg/dL (Negative) 11/02/19 11:30 Digoxin 1.42 ng/mL (0.90-2.00) 11/04/19 07:15 COVID-19 PCR Negative (Negative) 10/28/19 02:40 Nasopharyn COVID-19 PCR Not Applicable 10/28/19 02:40 M. pneumoniae Source Sputum 10/29/19 05:40 M. pneumoniae (PCR) Negative 10/29/19 05:40 Ur Strep pneumoniae Ag Negative (Negative) 10/29/19 14:25 Ref Test Perform Site [facility] lab 10/28/19 02:40
[2019-11-04] MEDS: Lidocaine 5% Patch 2 PATCH TP (18:34)
[2019-11-04] MEDS: Simvastatin 20 MG TAB PO (20:23)
[2019-11-04] MEDS: Warfarin 1 MG TAB PO (20:24)
[2019-11-04] MEDS: Sodium Chloride-Nasal SPRAY-ADULT 44 ML BTL NS (20:25)
[2019-11-04] MEDS: Normal Saline Flush 10 ML SYR 20 ML IVP (20:25)
[2019-11-04] MEDS: VANCOMYCIN 750 MG in Normal Saline 250 ML 166.67 MG IV (21:55)
[2019-11-04] MEDS: rOPINIRole 0.5 MG TAB PO (21:55)
[2019-11-04] MEDS: Insulin Glargine 300 UNITS/3 ML PEN 10 UNITS SC (21:55)
[2019-11-05] VITALS (7 sets, daily range): BP systolic 106–130; BP diastolic 64–83; PULSE 57–88; RESP 15–24; TEMP 35.4–36.5; O2SAT 91–99
[2019-11-05] MEDS: CEFEPIME 2 GM in Normal Saline 100 ML IVPB ×2 (00:03→12:27)
[2019-11-05] MEDS: Nystatin 500000 UNITS/5 ML SUSP 5ML CUP PO ×4 (05:32→22:07)
[2019-11-05] MEDS: LIDOCAINE Patch Removal TP (05:43)
--- NOTE | 2019-11-05 06:10 | DI.RAD_ITS ---
EXAM: XR PORTABLE CHEST AP CLINICAL HISTORY: PNA, leucocytosis not improving TECHNIQUE: COMPARISON: CR,XR XR CHEST 2V PA LATERAL from 11/01/2019 FINDINGS: Heart is enlarged. There is a transvenous cardiac pacemaker in position. There are minimal patchy o pacities in the lung bases bilaterally which are nonspecific, unchanged from examination of October 31 . No new pulmonary consolidation. IMPRESSION: Stable appearance of chest since October 31 radiograph.
--- NOTE | 2019-11-05 06:26 | DI.VRAD_ITS ---
PROCEDURE INFORMATION: Exam: XR Chest, 1 View Exam date and time: 11/05/2019 6:10 AM Age: 79 years old Clinical indication: Other: Pna, leukocytosis not improving; Prior surgery; Surgery type: Pacer TECHNIQUE: Imaging protocol: XR of the chest Views: 1 view. COMPARISON: CR XR CHEST 2V PA LATERAL 11/01/2019 9:58 AM FINDINGS: Cardiac pacemaker leads are grossly stable. The heart and mediastinal structures are grossly stable. There is mild basilar subsegmental atelectasis and small pleural fluid. Minimal interstitial edema not excluded There is no pneumothorax. Chronic left-sided rib fractures better appreciated on the current examination IMPRESSION: Grossly stable mild basilar subsegmental atelectasis and small pleural fluid. Question minimal interstitial edema Chronic left-sided rib fractures better appreciated on the current examination Dictated and Authenticated by: Carl Wharton MD. Ordering:KEN Prabhakar MD
[2019-11-05] MEDS: Normal Saline Flush 10 ML SYR 20 ML IVP ×2 (06:30→20:04)
[2019-11-05 07:01] LABS: HCT 54.4 % (40.0-50.0); HGB 18.8 g/dL (13.5-17.5); Mean Corp. HGB Concentration 34.6 g/dL (32.0-36.0); Mean Corpuscular Hemoglobin 34.9 pg (27.0-33.0); Mean Corpuscular Volume 101.1 fL (80-95); Mean Platelet Volume 11.3 fL (8.0-11.0); Platelet Count 205 x1000/uL (130-400); RBC 5.38 m/cumm (4.50-6.00); RBC Distribution Width 14.5 % (11.8-14.1); White Blood Cell Count 13.73 k/cumm (4.4-10.8)
[2019-11-05 07:05] LABS: Prothrombin Time 28.9 sec (9.3-11.0)
[2019-11-05 07:06] LABS: Anion Gap 10.7 mmol/L (3-11); CO2 29.3 mmol/L (21.0-32.0); Calcium 9.7 mg/dL (8.5-10.1); Chloride 87 mmol/L (98-107); Estimated GFR 29.17 (mL/min/1.73m2); Glucose 157 mg/dL (74-106); Magnesium 2.2 mg/dL (1.8-2.4); Sodium 127 mmol/L (136-145)
[2019-11-05 07:09] LABS: BUN 85 mg/dL (7-18)
[2019-11-05] MEDS: DULoxetine 20 MG CAP PO (08:10)
[2019-11-05] MEDS: Allopurinol 300 MG TAB PO (08:11)
[2019-11-05] MEDS: Spironolactone 50 MG TAB 25 MG PO (08:11)
[2019-11-05] MEDS: Pantoprazole 40 MG TABCR PO (08:12)
[2019-11-05] MEDS: guaiFENesin 600 MG TABCR PO ×2 (08:12→20:03)
[2019-11-05] MEDS: Bumetanide 1 MG TAB PO (08:13)
[2019-11-05] MEDS: predniSONE 5 MG TAB PO (08:13)
[2019-11-05] MEDS: Insulin Aspart 300 UNITS/3 ML PEN SC ×4 (08:13→22:07)
[2019-11-05] MEDS: Digoxin 0.125 MG TAB PO (08:18)
[2019-11-05] MEDS: Metoprolol 25 MG TAB 37.5 MG PO ×2 (08:19→20:04)
[2019-11-05 08:21] LABS: Absolute Lymphocyte Count 1.24 k/cumm (1.2-3.4)
[2019-11-05 08:22] LABS: Diff Comment Manual Differential; Promyelocytes % 0 %; RBC Morphology Normal
[2019-11-05] MEDS: Ipratropium/Albuterol 4 GM 120 PUFF INH IH ×4 (09:18→20:04)
--- NOTE | 2019-11-05 10:20 | DI.US_ITS ---
EXAM: US SOFT TISSUE EXTREMITY CLINICAL HISTORY: R hip/buttock induration after a fall TECHNIQUE: Ultrasound performed using standard protocol. COMPARISON: US US ECHOCARDIOGRAM from 10/29/2019 FINDINGS: Ultrasound examination of the right hip/buttock region was performed to evaluate a questionable palpa ble abnormalities in this area following history of reported fall. No hematoma or mass is identified in the region surveyed. IMPRESSION: Negative soft tissue ultrasound as described above. DATA REPOSITORY:
--- NOTE | 2019-11-05 11:18 | W.DIABETESNO ---
Date of service: 11/05/19 Time of Service: 11:18 Diabetes Note NOTE: Per nursing, poor intake x 24 hours. Did not eat breakfast and only wants soup for lunch. Labs indicate elevated glucose, BUN/Cre- may be contributing to poor appetite. Tried to meet with Srini today,however, sleeping when I came by. Nursing reports that he has been more withdrawn last couple of days. Recommend glucerna shakes BID to help increase nutrient intake. Will follow closely and make adjustments as needed. weight up significantly, most likely due to fluid overload. Will continue diabetic, low salt diet with ordered fluid restriction. Time Spent in Nutritional Counseling and Treatment: 0 time spent face to face
[2019-11-05] MEDS: Normal Saline Flush 10 ML SYR IVP ×2 (12:27→17:04)
--- NOTE | 2019-11-05 15:44 | PT.INTREAT ---
Date of service: 11/05/19 Time of Service: 15:44 PT Notes Visit Reasons: RLL PNA,ACUTE EXACERBATION OF CHRONIC COMBINED CHF Srini continues to lack motivation with participating in therapy despite several attempts at persuasion to do even just deep breathing and chest expansion exercises while seated at EOB. He also refused bed level exercises stating that all wanted to do was drink water. Nurse Kym and child care assistant Kaci informed about refusal and lack of motivation. Patient just received new antibiotic for diagnosis of PNA and it is hoped that with abatement of breathing difficulty, patient will again be more receptive to PT participation. Will plan on seeing patient tomorrow as scheduled.
[2019-11-05 16:56] LABS: Vancomycin, Trough 19.3 ug/mL (10.0-20.0)
[2019-11-05] MEDS: VANCOMYCIN 750 MG in Normal Saline 250 ML 167 MG IV (17:03)
--- NOTE | 2019-11-05 17:09 | CMPROGNOTE_ITS ---
- If Service Date Differs Date of service: 11/05/19 Time of Service: 17:09 Care Management Progress Note S/O: Irineo was sitting up on the side of the bed when CM met with him, with his daughter Juju in the room. 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 He did not engage fully with CM, answering questions with one word. CM spoke with Juju later, who stated that he appeared depressed to her, which he has suffered from in the past. The medication he takes for depression had just been adjusted yesterday, which could have an effect on his affect. CM will continue to follow. A: Srini is a 79 year old male admitted to [facility] on 10/28/19 for CHF exacerbation. P: Anticipate Srini will return home when medically cleared by provider with new Home Health nursing and PT/OT services vs SNF for short term rehab prior to returning home. Srini will follow up with his PCP and discharge plan of care as directed. His daughter will drive him home when ready. CM will continue to support patient and discharge planning needs.
--- NOTE | 2019-11-05 17:36 | PGE_ITS ---
Date of Service Date of service: 11/05/19 Time of Service: 16:30 Assessment and Plan Assessment and plan (1) Pneumonia: Status: Acute Assessment and plan: This is likely the pneumonia that was present on admission. However, I am really not seeing a clinical response. Will upgrade cefepime to meropenem. Continue vanco. CXR stable, but clinically - no improvement. (2) Acute on chronic combined systolic (congestive) and diastolic (congestive) heart failure: Status: Acute Assessment and plan: About the same as yesterday, euvolemic. However, clinically really dry. Will try to give him 500 cc of NS at 75 cc/hr. Hold diuretics entirely. Monitor respiratory status. (3) Elevated troponin: Status: Acute Assessment and plan: Mild type 2 NSTEMI in setting of acute exacerbation of CHF. Neg MPI in 2017. There are LV wall motion abnormalities. May benefit from outpatient ischemic workup. Patient requests cardiac follow up at our facility on discharge. (4) REI (acute kidney injury): Status: Acute Assessment and plan: Acute on chronic kidney failure probably secondary to cardiorenal syndrome. Offer 500 cc of fluids, d/c diuretics. Watch potassium. 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 (5) AF (paroxysmal atrial fibrillation): Status: Chronic Assessment and plan: No chage in tx. (6) Dilated idiopathic cardiomyopathy: Status: Chronic Assessment and plan: S/p Negative MPI in 2017. S/p AICD - no evidence of sustained Vtach or Vfib since April. Discussed appearance of strips with [facility] [place] [facility] cardiology - appears to be working well. Spikes on top of QRS complexes are supposed to be there, per [facility] [place] cardiology. Will set up outpatient cardiology follow up with cardiology here. I think hospice should be considered. He is now DNR/DNI. (7) COPD (chronic obstructive pulmonary disease): Status: Acute Assessment and plan: Continue prednisone, combivent, prn albuterol Read above re PNA. (8) Non-insulin dependent diabetes mellitus: Status: Acute Assessment and plan: Cover with SSI (9) Supratherapeutic INR: Status: Resolved Assessment and plan: Continue coumadin (10) Ambulatory dysfunction: Status: Acute Assessment and plan: Continue PT (11) DVT prophylaxis: Status: Acute Assessment and plan: Continue coumadin (12) Discharge planning issues: Status: Acute Assessment and plan: DNI, not DNR Palliative care on board Prognosis guarded as not improving. We started to talk about options if this does not work. On discharge, SNF indicated. Subjective Subjective Interval history since last seen: Mr Romano states he has a hard time remembering yesterday or this morning. He thinks he just came to it at 1530. His daughter thinks he is a little bit more awake. Continues to report a cough (nonproductive), hoarse voice. Denies dizziness, chest pain, shortness of breath, nausea. Exam Narrative Exam Narrative: General: Very pleasant elderly obese males, A&Ox3, a little more awake, very hoarse HEENT: EOMI, MMM, no JVD Cardiovascular: irregular rhythm, no m/r/g Lungs: Diminished breath sounds B Gastrointestinal: soft, nontender, nondistended Extremities: trace edema BLE, no c/c. Objective Objective Clinical Data: Abnormal lab results 11/05/19 11/05/19 11/05/19 Range/Units 06:30 06:30 06:30 WBC 13.73 H (4.4-10.8) k/cumm Hgb 18.8 H (13.5-17.5) g/dL Hct 54.4 H (40.0-50.0) % MCV 101.1 H (80-95) fL MCH 34.9 H (27.0-33.0) pg RDW 14.5 H (11.8-14.1) % MPV 11.3 H (8.0-11.0) fL Absolute Neutrophils 11.40 H (1.2-6.7) k/cumm Absolute Monocytes 1.10 H (0.11-0.7) k/cumm PT 28.9 H (9.3-11.0) sec INR 3.0 H D (0.9-1.1) Sodium 127 L (136-145) mmol/L Chloride 87 L (98-107) mmol/L BUN 85 H* (7-18) mg/dL Creatinine 2.20 H (0.70-1.30) mg/dL Glucose 157 H (74-106) mg/dL C-Reactive Protein 1.30 H (0.0-0.3) mg/dL Vital Signs Temperature 36.5 C 11/05/19 16:24 Temperature Source Tympanic 11/05/19 16:24 Pulse 64 11/05/19 16:24 Pulse Rhythm Regular 11/05/19 09:49 Respiratory Rate 15 11/05/19 16:24 Respiratory Effort 11/05/19 09:49 Respiratory Depth Normal 11/05/19 09:49 Respiratory Pattern Normal 11/05/19 09:49 Blood Pressure 122/64 11/05/19 16:24 Blood Pressure Position Supine 10/27/19 23:23 Pulse Oximetry 91 L 11/05/19 16:24 Oxygen Delivery Method Room Air 11/05/19 16:24 Oxygen Flow Rate 0 11/05/19 16:24 Pain Level 0 11/05/19 11:33 Comment 10/31/19 23:00 Intake & Output 11/04/19 11/05/19 11/05/19 23:59 11:59 23:59 Intake Total 950 / 1810 460 / 520 60 / 520 Output Total 250 / 400 150 / 400 Balance 950 / 674 210 / 120 -90 / 120 Weight 79.9 kg Intake: IV 350 / 610 220 / 220 Oral 600 / 1200 240 / 300 60 / 300 Output: Urine 250 / 400 150 / 400 Other: Urine Color Yellow Yellow Yellow Straw Straw Urine Appearance Clear Clear Clear Urine Odor Normal Comment pt doing 24 urine test. level at 700ml at this time Voiding Methods Urinal Urinal Urinal Laboratory Results WBC 13.73 k/cumm (4.4-10.8) H 11/05/19 06:30 RBC 5.38 m/cumm (4.50-6.00) 11/05/19 06:30 Hgb 18.8 g/dL (13.5-17.5) H 11/05/19 06:30 Hct 54.4 % (40.0-50.0) H 11/05/19 06:30 MCV 101.1 fL (80-95) H 11/05/19 06:30 MCH 34.9 pg (27.0-33.0) H 11/05/19 06:30 MCHC 34.6 g/dL (32.0-36.0) 11/05/19 06:30 RDW 14.5 % (11.8-14.1) H 11/05/19 06:30 Plt Count 205 x1000/uL (130-400) 11/05/19 06:30 MPV 11.3 fL (8.0-11.0) H 11/05/19 06:30 Immature Gran % See Differential 11/05/19 06:30 Neutrophils % 83.0 11/05/19 06:30 Band Neutrophils % 1.0 % 11/04/19 07:15 Lymphocytes % 9.0 11/05/19 06:30 Atypical Lymphs % 2 10/27/19 23:40 Monocytes % 8.0 11/05/19 06:30 Eosinophils % 0.0 11/05/19 06:30 Basophils % 0.0 11/05/19 06:30 Metamyelocytes % 0.0 % 11/05/19 06:30 Myelocytes % 0.0 % 11/05/19 06:30 Promyelocytes % 0 % 11/05/19 06:30 Absolute Neutrophils 11.40 k/cumm (1.2-6.7) H 11/05/19 06:30 Absolute Lymphocytes 1.24 k/cumm (1.2-3.4) 11/05/19 06:30 Absolute Monocytes 1.10 k/cumm (0.11-0.7) H 11/05/19 06:30 Absolute Eosinophils 0.00 k/cumm (0.0-0.7) 11/05/19 06:30 Absolute Basophils 0.00 k/cumm (0.0-0.2) 11/05/19 06:30 Nucleated RBCs 1 /100WBC 11/03/19 07:05 Differential Comment Manual differential 11/05/19 06:30 RBC Morphology Normal 11/05/19 06:30 Polychromasia Present 11/02/19 06:15 Hypochromasia 2+ 10/28/19 06:40 Poikilocytosis 2+ 11/02/19 06:15 Anisocytosis 1+ 10/28/19 06:40 Macrocytosis 2+ 11/04/19 07:15 PT 28.9 sec (9.3-11.0) H 11/05/19 06:30 INR 3.0 (0.9-1.1) H D 11/05/19 06:30 ABG Sample Site Left radial 11/02/19 09:38 ABG pH 7.50 (7.35-7.45) H 11/02/19 09:38 ABG pCO2 40 mmHg (34-47) 11/02/19 09:38 ABG pO2 69 mmHg (83-108) L 11/02/19 09:38 ABG HCO3 31 mmol/L (22-28) H 11/02/19 09:38 ABG Total CO2 26 mmol/L (22-29) 11/02/19 09:38 ABG O2 Saturation 94 % (94-98) 11/02/19 09:38 ABG Base Excess 8.1 mmol/L (-3-3) H 11/02/19 09:38 FiO2 21 % 11/02/19 09:38 Sodium 127 mmol/L (136-145) L 11/05/19 06:30 Potassium 5.0 mmol/L (3.5-5.1) D 11/05/19 06:30 Chloride 87 mmol/L (98-107) L 11/05/19 06:30 Carbon Dioxide 29.3 mmol/L (21.0-32.0) 11/05/19 06:30 Anion Gap 10.7 mmol/L (3-11) 11/05/19 06:30 BUN 85 mg/dL (7-18) H* 11/05/19 06:30 Creatinine 2.20 mg/dL (0.70-1.30) H 11/05/19 06:30 Estimated GFR/1.73 m2 29.17 (mL/min/1.73m2) 11/05/19 06:30 Glucose 157 mg/dL (74-106) H 11/05/19 06:30 Calcium 9.7 mg/dL (8.5-10.1) 11/05/19 06:30 Magnesium 2.2 mg/dL (1.8-2.4) 11/05/19 06:30 Troponin I 0.09 ng/mL (<0.06) H* 10/30/19 06:25 C-Reactive Protein 1.30 mg/dL (0.0-0.3) H 11/05/19 06:30 NT-Pro-B Natriuret Pep 6704 pg/mL (<300) H 10/31/19 06:36 Total Protein (PEP) Cancelled 11/04/19 07:15 Albumin % (PEP) Cancelled 11/04/19 07:15 Fhjmw-1-Mfjanvnax (%) Cancelled 11/04/19 07:15 Isiwx-6-Uetqsqkvd (%) Cancelled 11/04/19 07:15 Beta Globulins (%) Cancelled 11/04/19 07:15 Gamma Globulins (%) Cancelled 11/04/19 07:15 M-Bryan % Cancelled 11/04/19 07:15 PEP Comment Cancelled 11/04/19 07:15 Procalcitonin 0.3 ng/mL 11/04/19 07:15 TSH 1.16 uIU/mL (0.36-3.74) 10/28/19 06:40 Urine Color Yellow (Yellow) 11/02/19 11:30 Urine Clarity Clear (Clear) 11/02/19 11:30 Urine pH 7.5 (5-8) 11/02/19 11:30 Ur Specific [place] 1.020 (1.005-1.025) 11/02/19 11:30 Urine Protein Negative mg/dL (Negative) 11/02/19 11:30 Urine Ketones Negative mg/dL (Negative) 11/02/19 11:30 Urine Blood Trace-intact (Negative) H 11/02/19 11:30 Urine Nitrite Negative (Negative) 11/02/19 11:30 Urine Bilirubin Negative (Negative) 11/02/19 11:30 Urine Urobilinogen 0.2 EU/dL (Up TO 0.2) 11/02/19 11:30 Ur Leukocyte Esterase Negative (Negative) 11/02/19 11:30 Urine RBC 3-5 HPF (0-2) H 11/02/19 11:30 Urine WBC 0-2 HPF (0-5) 11/02/19 11:30 Ur Epithelial Cells Rare HPF (Negative) 11/02/19 11:30 Urine Crystals Negative HPF (Negative) 11/02/19 11:30 Urine Bacteria Rare HPF (Negative) 11/02/19 11:30 Urine Casts 3-5 hyaline LPF (Negative) 11/02/19 11:30 Urine Mucus Negative (Negative) 11/02/19 11:30 Urine Other Negative (Negative) 11/01/19 11:30 Ur Culture Indicated? No 11/02/19 11:30 Urine Glucose Negative mg/dL (Negative) 11/02/19 11:30 Vancomycin Trough 19.3 ug/mL (10.0-20.0) 11/05/19 15:20 Digoxin 1.42 ng/mL (0.90-2.00) 11/04/19 07:15 COVID-19 PCR Negative (Negative) 10/28/19 02:40 Nasopharyn COVID-19 PCR Not Applicable 10/28/19 02:40 M. pneumoniae Source Sputum 10/29/19 05:40 M. pneumoniae (PCR) Negative 10/29/19 05:40 Ur Strep pneumoniae Ag Negative (Negative) 10/29/19 14:25 Ref Test Perform Site [place] [facility] lab 10/28/19 02:40
[2019-11-05] MEDS: Lidocaine 5% Patch 2 PATCH TP (18:37)
[2019-11-05] MEDS: Simvastatin 20 MG TAB PO (20:03)
[2019-11-05] MEDS: Normal Saline 500 ML 75 ML IV (20:09)
[2019-11-05] MEDS: MEROPENEM 1 GM in Normal Saline 100 ML IVPB (20:13)
[2019-11-05] MEDS: Insulin Glargine 300 UNITS/3 ML PEN 10 UNITS SC (22:06)
[2019-11-05] MEDS: rOPINIRole 0.5 MG TAB PO (22:07)
[2019-11-06] VITALS (14 sets, daily range): BP systolic 90–131; BP diastolic 50–85; PULSE 51–97; RESP 17–24; TEMP 35.6–36.8; O2SAT 93–98
[2019-11-06] MEDS: Nystatin 500000 UNITS/5 ML SUSP 5ML CUP PO ×4 (05:37→22:01)
[2019-11-06] MEDS: LIDOCAINE Patch Removal TP (05:37)
[2019-11-06] MEDS: Ipratropium/Albuterol 4 GM 120 PUFF INH IH ×4 (08:07→20:03)
[2019-11-06] MEDS: MEROPENEM 1 GM in Normal Saline 100 ML IVPB ×2 (08:35→20:06)
[2019-11-06] MEDS: Normal Saline 500 ML IV (08:35)
[2019-11-06] MEDS: Normal Saline Flush 10 ML SYR IVP (08:37)
[2019-11-06] MEDS: guaiFENesin 600 MG TABCR PO ×2 (08:38→20:05)
[2019-11-06] MEDS: DULoxetine 20 MG CAP PO (08:38)
[2019-11-06] MEDS: Allopurinol 300 MG TAB PO (08:39)
[2019-11-06] MEDS: Metoprolol 25 MG TAB 37.5 MG PO ×2 (08:39→20:05)
[2019-11-06] MEDS: Digoxin 0.125 MG TAB PO (08:39)
[2019-11-06] MEDS: predniSONE 5 MG TAB PO (08:40)
[2019-11-06] MEDS: Pantoprazole 40 MG TABCR PO (08:40)
[2019-11-06] MEDS: Acetaminophen 325 MG TAB PO (08:40)
[2019-11-06] MEDS: Insulin Aspart 300 UNITS/3 ML PEN SC ×4 (08:42→22:02)
[2019-11-06] MEDS: Normal Saline Flush 10 ML SYR 20 ML IVP ×2 (08:57→20:06)
[2019-11-06] MEDS: VANCOMYCIN 750 MG in Normal Saline 250 ML 167 MG IV (11:01)
[2019-11-06 11:49] LABS: HCT 51.2 % (40.0-50.0); HGB 17.8 g/dL (13.5-17.5); Mean Corp. HGB Concentration 34.8 g/dL (32.0-36.0); Mean Corpuscular Hemoglobin 35.5 pg (27.0-33.0); Mean Corpuscular Volume 102.2 fL (80-95); Mean Platelet Volume 11.3 fL (8.0-11.0); RBC 5.01 m/cumm (4.50-6.00); RBC Distribution Width 14.4 % (11.8-14.1); White Blood Cell Count 13.64 k/cumm (4.4-10.8)
[2019-11-06 11:58] LABS: INR 3.9 (0.9-1.1); Prothrombin Time 38.1 sec (9.3-11.0)
[2019-11-06 11:59] LABS: Anion Gap 6.4 mmol/L (3-11); CO2 29.6 mmol/L (21.0-32.0); CREATININE 2.19 mg/dL (0.70-1.30); Calcium 9.2 mg/dL (8.5-10.1); Chloride 90 mmol/L (98-107); Digoxin 1.26 ng/mL (0.90-2.00); Estimated GFR 29.32 (mL/min/1.73m2); Glucose 226 mg/dL (74-106); Magnesium 2.4 mg/dL (1.8-2.4); Potassium 3.7 mmol/L (3.5-5.1); Sodium 126 mmol/L (136-145)
[2019-11-06 12:03] LABS: BUN 85 mg/dL (7-18)
[2019-11-06 12:10] LABS: Absolute Lymphocyte Count 0.82 k/cumm (1.2-3.4); Absolute Monocyte Count 1.36 k/cumm (0.11-0.7); Absolute Neutrophil Count 11.46 k/cumm (1.2-6.7); Diff Comment Manual Differential; Macrocytosis 2+
[2019-11-06 12:11] LABS: C-Reactive Protein 1.17 mg/dL (0.0-0.3); Platelet Count 188 x1000/uL (130-400)
--- NOTE | 2019-11-06 12:24 | NUR.NOTE ---
Nursing Note: 1215 Patient is sitting at edge of bed, more alert and responsive, making eye contact with staff, joking. Patient independently self fed lunch. Appears to be feeling better and having more energy at this time.
--- NOTE | 2019-11-06 13:29 | CMPROGNOTE_ITS ---
- If Service Date Differs Date of service: 11/06/19 Time of Service: 13:29 Care Management Progress Note S/O: Srini was lying in bed when CM met with him. He stated that he is 'feeling terrible'. He stated that he did not want to work with PT today because he doesn't feel that he will be able to walk. CM asked him about his goals for his health care, and he stated to get the hell out of here. CM stated that the provider, PT and Juju all do not feel that he will be safe at home by himself, and the recommendation is for him to go to a short term rehab facility. He stated that he wants to return home. He reported that he is not eating much because he doesn't have an appetite. Per report, his medications were changed yesterday and he is being monitored for progress. CM attempted to contact Palliative for a follow up meeting, but they are unavailable until early next week. CM will continue to follow. A: Srini is a 79 year old male admitted to [facility] on 10/28/19 for CHF exacerbation. P: Anticipate Srini will return home when medically cleared by provider with new Home Health nursing and PT/OT services vs SNF for short term rehab prior to returning home. Srini will follow up with his PCP and discharge plan of care as directed. His daughter will drive him home when ready. CM will continue to support patient and discharge planning needs.
[2019-11-06] MEDS: Sodium Chloride-Nasal SPRAY-ADULT 44 ML BTL NS ×2 (15:46→20:09)
[2019-11-06] MEDS: Lidocaine 5% Patch 2 PATCH TP (18:35)
--- NOTE | 2019-11-06 18:57 | W.PM.PROGNOT ---
Date of Service Date of service: 11/06/19 Time of Service: 18:58 Assessment and Plan Assessment and plan (1) Pneumonia: Status: Acute Assessment and plan: This is likely the pneumonia that was present on admission. Clearly better today. Continue vanco/meroponem. (2) Acute on chronic combined systolic (congestive) and diastolic (congestive) heart failure: Status: Acute Assessment and plan: About the same as yesterday, euvolemic. Would not resume diuretics at this time. (3) Elevated troponin: Status: Acute Assessment and plan: Mild type 2 NSTEMI in setting of acute exacerbation of CHF. Neg MPI in 2017. There are LV wall motion abnormalities. May benefit from outpatient ischemic workup. Patient requests cardiac follow up at our facility on discharge. (4) REI (acute kidney injury): Status: Acute Assessment and plan: Acute on chronic kidney failure probably secondary to cardiorenal syndrome. Cr Plateaued. Continue to hold diuretics. 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 (5) AF (paroxysmal atrial fibrillation): Status: Chronic Assessment and plan: No chage in tx. (6) Dilated idiopathic cardiomyopathy: Status: Chronic Assessment and plan: S/p Negative MPI in 2017. S/p AICD - no evidence of sustained Vtach or Vfib since April. Discussed appearance of strips with [facility] cardiology - appears to be working well. Spikes on top of QRS complexes are supposed to be there, per [facility] cardiology. Will set up outpatient cardiology follow up with cardiology here. I think hospice should be considered. He is now DNR/DNI. D/c tele (7) COPD (chronic obstructive pulmonary disease): Status: Acute Assessment and plan: Continue prednisone, combivent, prn albuterol Read above re PNA. (8) Non-insulin dependent diabetes mellitus: Status: Acute Assessment and plan: Cover with SSI (9) Supratherapeutic INR: Status: Resolved Assessment and plan: Continue coumadin (10) Ambulatory dysfunction: Status: Acute Assessment and plan: Continue PT (11) Depression: Status: Chronic Assessment and plan: Increase duloxetine to 30 mg PO daily. (12) DVT prophylaxis: Status: Acute Assessment and plan: Continue coumadin (13) Discharge planning issues: Status: Acute Assessment and plan: DNI, not DNR Palliative care on board Prognosis now cautiously optimistic. On discharge, SNF indicated. Subjective Subjective Interval history since last seen: Mr Romano is actually feeling better today. He has more of a voice and is more energetic. He states he does not remember yesterday. He denies dizziness unless he tries to get up, denies chest pain, shortness of breath, nausea. He has felt too weak to work with PT. Denies back pain. Quickly mentioned having blurred vision when watching TV - but it only happens with the glasses on. He does not have any blurred vision otherwise. Exam Narrative Exam Narrative: General: Very pleasant elderly obese males, A&Ox3, more awake, voice clearing up HEENT: EOMI, MMM, no JVD Cardiovascular: irregular rhythm, no m/r/g Lungs: Diminished breath sounds B Gastrointestinal: soft, nontender, nondistended Extremities: trace edema BLE, no c/c. Objective Objective Clinical Data: Abnormal lab results 11/06/19 11/06/19 11/06/19 Range/Units 11:40 11:40 11:40 WBC 13.64 H (4.4-10.8) k/cumm Hgb 17.8 H (13.5-17.5) g/dL Hct 51.2 H (40.0-50.0) % MCV 102.2 H (80-95) fL MCH 35.5 H (27.0-33.0) pg RDW 14.4 H (11.8-14.1) % MPV 11.3 H (8.0-11.0) fL Absolute Neutrophils 11.46 H (1.2-6.7) k/cumm Absolute Lymphocytes 0.82 L (1.2-3.4) k/cumm Absolute Monocytes 1.36 H (0.11-0.7) k/cumm PT 38.1 H D (9.3-11.0) sec INR 3.9 H D (0.9-1.1) Sodium 126 L (136-145) mmol/L Chloride 90 L (98-107) mmol/L BUN 85 H* (7-18) mg/dL Creatinine 2.19 H (0.70-1.30) mg/dL Glucose 226 H (74-106) mg/dL C-Reactive Protein 1.17 H (0.0-0.3) mg/dL Vital Signs Temperature 36.7 C 11/06/19 15:29 Temperature Source Tympanic 11/06/19 15:29 Pulse 58 L 11/06/19 15:29 Pulse Rhythm Regular 11/06/19 17:24 Respiratory Rate 18 11/06/19 15:29 Respiratory Effort 11/06/19 17:24 Respiratory Depth Shallow 11/06/19 17:24 Respiratory Pattern Normal 11/06/19 17:24 Blood Pressure 90/50 L 11/06/19 15:29 Blood Pressure Position Supine 10/27/19 23:23 Pulse Oximetry 94 L 11/06/19 15:29 Oxygen Delivery Method Room Air 11/06/19 15:29 Oxygen Flow Rate 0 11/06/19 15:29 Pain Level 0 11/06/19 15:29 Comment 10/31/19 23:00 Intake & Output 11/05/19 11/06/19 11/06/19 23:59 11:59 23:59 Intake Total 510 / 970 1174.2 / 1769.767 595.567 / 1769.767 Output Total 800 / 1050 775 / 1075 300 / 1075 Balance -290 / -80 399.2 / 694.767 295.567 / 694.767 Weight 80.1 kg Intake: IV 390 / 610 574.2 / 929.767 355.567 / 929.767 Oral 120 / 360 600 / 840 240 / 840 Output: Urine 700 / 950 775 / 1075 300 / 1075 Emesis 100 / 100 Other: Urine Color Straw Yellow Light [place] Urine Appearance Clear Clear Clear Urine Odor Strong None Strong Emesis Description Undigested Food Voiding Methods Urinal Urinal Urinal Laboratory Results WBC Cancelled 11/06/19 Unknown RBC Cancelled 11/06/19 Unknown Hgb Cancelled 11/06/19 Unknown Hct Cancelled 11/06/19 Unknown MCV Cancelled 11/06/19 Unknown MCH Cancelled 11/06/19 Unknown MCHC Cancelled 11/06/19 Unknown RDW Cancelled 11/06/19 Unknown Plt Count Cancelled 11/06/19 Unknown MPV Cancelled 11/06/19 Unknown Immature Gran % Cancelled 11/06/19 Unknown Neutrophils % Cancelled 11/06/19 Unknown Band Neutrophils % Cancelled 11/06/19 Unknown Lymphocytes % Cancelled 11/06/19 Unknown Atypical Lymphs % Cancelled 11/06/19 Unknown Monocytes % Cancelled 11/06/19 Unknown Eosinophils % Cancelled 11/06/19 Unknown Basophils % Cancelled 11/06/19 Unknown Metamyelocytes % Cancelled 11/06/19 Unknown Myelocytes % Cancelled 11/06/19 Unknown Promyelocytes % Cancelled 11/06/19 Unknown Absolute Neutrophils Cancelled 11/06/19 Unknown Absolute Lymphocytes Cancelled 11/06/19 Unknown Absolute Monocytes Cancelled 11/06/19 Unknown Absolute Eosinophils Cancelled 11/06/19 Unknown Absolute Basophils Cancelled 11/06/19 Unknown Nucleated RBCs Cancelled 11/06/19 Unknown Differential Comment Cancelled 11/06/19 Unknown Other Cell Type Cancelled 11/06/19 Unknown RBC Morphology Cancelled 11/06/19 Unknown Polychromasia Cancelled 11/06/19 Unknown Hypochromasia Cancelled 11/06/19 Unknown Poikilocytosis Cancelled 11/06/19 Unknown Basophilic Stippling Cancelled 11/06/19 Unknown Anisocytosis Cancelled 11/06/19 Unknown Microcytosis Cancelled 11/06/19 Unknown Macrocytosis Cancelled 11/06/19 Unknown Spherocytes Cancelled 11/06/19 Unknown Target Cells Cancelled 11/06/19 Unknown Tear Drop Cells Cancelled 11/06/19 Unknown Ovalocytes Cancelled 11/06/19 Unknown Stomatocytes Cancelled 11/06/19 Unknown [place] Bodies Cancelled 11/06/19 Unknown [place] Cells Cancelled 11/06/19 Unknown Acanthocytes (Spur) Cancelled 11/06/19 Unknown Schistocytes Cancelled 11/06/19 Unknown PT 38.1 sec (9.3-11.0) H D 11/06/19 11:40 INR 3.9 (0.9-1.1) H D 11/06/19 11:40 ABG Sample Site Left radial 11/02/19 09:38 ABG pH 7.50 (7.35-7.45) H 11/02/19 09:38 ABG pCO2 40 mmHg (34-47) 11/02/19 09:38 ABG pO2 69 mmHg (83-108) L 11/02/19 09:38 ABG HCO3 31 mmol/L (22-28) H 11/02/19 09:38 ABG Total CO2 26 mmol/L (22-29) 11/02/19 09:38 ABG O2 Saturation 94 % (94-98) 11/02/19 09:38 ABG Base Excess 8.1 mmol/L (-3-3) H 11/02/19 09:38 FiO2 21 % 11/02/19 09:38 Sodium 126 mmol/L (136-145) L 11/06/19 11:40 Potassium 3.7 mmol/L (3.5-5.1) D 11/06/19 11:40 Chloride 90 mmol/L (98-107) L 11/06/19 11:40 Carbon Dioxide 29.6 mmol/L (21.0-32.0) 11/06/19 11:40 Anion Gap 6.4 mmol/L (3-11) 11/06/19 11:40 BUN 85 mg/dL (7-18) H* 11/06/19 11:40 Creatinine 2.19 mg/dL (0.70-1.30) H 11/06/19 11:40 Estimated GFR/1.73 m2 29.32 (mL/min/1.73m2) 11/06/19 11:40 Glucose 226 mg/dL (74-106) H 11/06/19 11:40 Calcium 9.2 mg/dL (8.5-10.1) 11/06/19 11:40 Magnesium 2.4 mg/dL (1.8-2.4) 11/06/19 11:40 Troponin I 0.09 ng/mL (<0.06) H* 10/30/19 06:25 C-Reactive Protein 1.17 mg/dL (0.0-0.3) H 11/06/19 11:40 NT-Pro-B Natriuret Pep 6704 pg/mL (<300) H 10/31/19 06:36 Total Protein (PEP) Cancelled 11/04/19 07:15 Albumin % (PEP) Cancelled 11/04/19 07:15 Aktrx-1-Dmytblzrz (%) Cancelled 11/04/19 07:15 Kurov-5-Vptyzaikp (%) Cancelled 11/04/19 07:15 Beta Globulins (%) Cancelled 11/04/19 07:15 Gamma Globulins (%) Cancelled 11/04/19 07:15 M-Bryan % Cancelled 11/04/19 07:15 PEP Comment Cancelled 11/04/19 07:15 Procalcitonin 0.3 ng/mL 11/04/19 07:15 TSH 1.16 uIU/mL (0.36-3.74) 10/28/19 06:40 Urine Color Yellow (Yellow) 11/02/19 11:30 Urine Clarity Clear (Clear) 11/02/19 11:30 Urine pH 7.5 (5-8) 11/02/19 11:30 Ur Specific [place] 1.020 (1.005-1.025) 11/02/19 11:30 Urine Protein Negative mg/dL (Negative) 11/02/19 11:30 Urine Ketones Negative mg/dL (Negative) 11/02/19 11:30 Urine Blood Trace-intact (Negative) H 11/02/19 11:30 Urine Nitrite Negative (Negative) 11/02/19 11:30 Urine Bilirubin Negative (Negative) 11/02/19 11:30 Urine Urobilinogen 0.2 EU/dL (Up TO 0.2) 11/02/19 11:30 Ur Leukocyte Esterase Negative (Negative) 11/02/19 11:30 Urine RBC 3-5 HPF (0-2) H 11/02/19 11:30 Urine WBC 0-2 HPF (0-5) 11/02/19 11:30 Ur Epithelial Cells Rare HPF (Negative) 11/02/19 11:30 Urine Crystals Negative HPF (Negative) 11/02/19 11:30 Urine Bacteria Rare HPF (Negative) 11/02/19 11:30 Urine Casts 3-5 hyaline LPF (Negative) 11/02/19 11:30 Urine Mucus Negative (Negative) 11/02/19 11:30 Urine Other Negative (Negative) 11/01/19 11:30 Ur Culture Indicated? No 11/02/19 11:30 Urine Glucose Negative mg/dL (Negative) 11/02/19 11:30 Vancomycin Trough 19.3 ug/mL (10.0-20.0) 11/05/19 15:20 Digoxin 1.26 ng/mL (0.90-2.00) 11/06/19 11:40 COVID-19 PCR Negative (Negative) 10/28/19 02:40 Nasopharyn COVID-19 PCR Not Applicable 10/28/19 02:40 M. pneumoniae Source Sputum 10/29/19 05:40 M. pneumoniae (PCR) Negative 10/29/19 05:40 Ur Strep pneumoniae Ag Negative (Negative) 10/29/19 14:25 Ref Test Perform Site [facility] 10/28/19 02:40
[2019-11-06] MEDS: Simvastatin 20 MG TAB PO (20:05)
[2019-11-06] MEDS: rOPINIRole 0.5 MG TAB PO (22:01)
[2019-11-06] MEDS: Insulin Glargine 300 UNITS/3 ML PEN 10 UNITS SC (22:03)
[2019-11-07] VITALS (9 sets, daily range): BP systolic 111–128; BP diastolic 71–79; PULSE 67–71; RESP 15–18; TEMP 35.4–36.7; O2SAT 94–98
[2019-11-07] MEDS: VANCOMYCIN 750 MG in Normal Saline 250 ML 167 MG IV ×2 (04:06→21:33)
[2019-11-07] MEDS: Normal Saline Flush 10 ML SYR IVP ×3 (04:06→14:14)
[2019-11-07] MEDS: Nystatin 500000 UNITS/5 ML SUSP 5ML CUP PO ×3 (06:16→21:31)
[2019-11-07 07:03] LABS: Absolute Basophil Count 0.01 k/cumm (0.0-0.2); Absolute Eosinophil Count 0.22 k/cumm (0.0-0.7); Absolute Lymphocyte Count 1.08 k/cumm (1.2-3.4); Absolute Monocyte Count 1.81 k/cumm (0.11-0.7); Basophils % 0.1; Eosinophils % 1.5; HCT 49.8 % (40.0-50.0); HGB 17.3 g/dL (13.5-17.5); Immature Grans % 0.7 %; Lymphocytes % 7.4; Mean Corp. HGB Concentration 34.7 g/dL (32.0-36.0); Mean Corpuscular Hemoglobin 35.5 pg (27.0-33.0); Mean Corpuscular Volume 102.3 fL (80-95); Mean Platelet Volume 10.8 fL (8.0-11.0); Monocytes % 12.4; Neutrophils % 77.9; Platelet Count 171 x1000/uL (130-400); RBC 4.87 m/cumm (4.50-6.00); RBC Distribution Width 14.3 % (11.8-14.1); White Blood Cell Count 14.63 k/cumm (4.4-10.8)
[2019-11-07 07:13] LABS: INR 3.3 (0.9-1.1); Prothrombin Time 31.9 sec (9.3-11.0)
[2019-11-07 07:18] LABS: Anion Gap 6.5 mmol/L (3-11); BUN 74 mg/dL (7-18); CO2 31.5 mmol/L (21.0-32.0); Calcium 9.1 mg/dL (8.5-10.1); Chloride 92 mmol/L (98-107); Estimated GFR 34.55 (mL/min/1.73m2); Glucose 151 mg/dL (74-106); Magnesium 2.4 mg/dL (1.8-2.4); Potassium 3.8 mmol/L (3.5-5.1); Sodium 130 mmol/L (136-145)
[2019-11-07 07:19] LABS: Diff Comment Diff Reviewed; Macrocytosis 1+
[2019-11-07 07:38] LABS: Procalcitonin 0.2 ng/mL
[2019-11-07] MEDS: LIDOCAINE Patch Removal TP (07:45)
[2019-11-07] MEDS: Ipratropium/Albuterol 4 GM 120 PUFF INH IH ×4 (07:56→20:24)
[2019-11-07] MEDS: Normal Saline 500 ML 30 ML IV (08:27)
[2019-11-07] MEDS: MEROPENEM 1 GM in Normal Saline 100 ML IVPB ×2 (08:27→20:27)
[2019-11-07] MEDS: Metoprolol 25 MG TAB 37.5 MG PO ×2 (08:29→20:24)
[2019-11-07] MEDS: predniSONE 5 MG TAB PO (08:29)
[2019-11-07] MEDS: Digoxin 0.125 MG TAB PO (08:29)
[2019-11-07] MEDS: guaiFENesin 600 MG TABCR PO ×2 (08:29→20:24)
[2019-11-07] MEDS: DULoxetine 30 MG CAP PO (08:29)
[2019-11-07] MEDS: Allopurinol 300 MG TAB PO (08:29)
[2019-11-07] MEDS: Pantoprazole 40 MG TABCR PO (08:29)
[2019-11-07] MEDS: Normal Saline Flush 10 ML SYR 20 ML IVP ×2 (08:30→20:26)
[2019-11-07] MEDS: Sodium Chloride-Nasal SPRAY-ADULT 44 ML BTL NS ×2 (08:30→20:24)
[2019-11-07] MEDS: Insulin Aspart 300 UNITS/3 ML PEN SC ×4 (08:31→21:32)
--- NOTE | 2019-11-07 09:34 | PT.INTREAT ---
Date of service: 11/07/19 Time of Service: 08:45 PT Notes Visit Reasons: RLL PNA,ACUTE EXACERBATION OF CHRONIC COMBINED CHF Inpatient Physical Therapy Treatment Note [facility] Date: 11/07/19 PRECAUTIONS: Fall SUBJECTIVE: Irineo states that he is still really weak and is hesitant to participate in PT, but is eventually agreeable. OBJECTIVE: PAIN: No c/o pain BED MOBILITY/TRANSFERS Supine-sit: S Sit-supine: S Sit-stand: CGA Stand-sit: CGA GAIT Assistive Device: FWW Weight bearing: Full Assist: CGA Distance: bedside marching only 20 alternate steps Deviation: feels weak and refused to walk away from bed however did state he went to the bathroom with nursing earlier in am Therex: Completed Seated LE exercises to include ankle pumps x10, glut sets x10, LAQ x10 R/L, seated hip flexion/abduction x10. ASSESSMENT: Patient tolerated session with c/o feeling weak and tired. He was not able to tolerate gait training due to not feeling strong enough. Patient would benefit from continued participation in gait training as well as global strengthening for improved strength and mobility. PLAN: Continue with POC TREATMENT CODE/TIME: 20 minutes; [id number]
--- NOTE | 2019-11-07 10:36 | W.PM.PROGNOT ---
Date of Service Date of service: 11/07/19 Time of Service: 10:57 Assessment and Plan Assessment and plan (1) Acute on chronic combined systolic (congestive) and diastolic (congestive) heart failure: Status: Acute Assessment and plan: Wt remains steady and only with tr pedal edema while off diuretics. Euvolemic. Monitor for need to restart torsemide ( home med ). (2) Dilated idiopathic cardiomyopathy: Status: Chronic Assessment and plan: EF of less than 20%. Palliative to see next week. (3) Pneumonia: Status: Acute Assessment and plan: On Meropenem and Vanc. WBC 13.64 yesterday. CBC in AM (4) REI (acute kidney injury): Status: Acute Assessment and plan: Cr improved to 1.9. Cont to hold diuretics. (5) AF (paroxysmal atrial fibrillation): Status: Chronic Assessment and plan: Rate controlled. Cont metoprolol (6) Anticoagulated on warfarin: Status: Acute Assessment and plan: Cont Warfarin. INR 3.3 (7) Depression: Status: Chronic Assessment and plan: Cymbalta increased to 30mg daily on 11/05. Subjective Subjective Patient reports: no new complaints and feels better Interval history since last seen: He states he feels slightly more energetic. With PT he did bedside marching and sitting exercises; no gait training d/t fatigue/weakness Exam Const General: cooperative and no acute distress Nutritional Appearance: average body habitus Orientation: alert and oriented x3 Resp Effort & Inspection: normal respiratory effort Auscultation: clear to auscultation bilaterally and diminished lung sounds Cardio Jugular venous pressure: no JVD Rhythm: other (Irreg rhythm) GI Palpation: soft Auscultation: normal bowel sounds Extrem General: normal exam except as noted and pedal edema (trace bilateral) Psych Appearance: grossly normal Speech and Movement: speech and movement normal Mood: congruent mood Affect: normal affect Attitude: cooperative Thought Process: normal Objective Objective Clinical Data: Abnormal lab results 11/06/19 11/06/19 11/06/19 Range/Units 11:40 11:40 11:40 WBC 13.64 H (4.4-10.8) k/cumm Hgb 17.8 H (13.5-17.5) g/dL Hct 51.2 H (40.0-50.0) % MCV 102.2 H (80-95) fL MCH 35.5 H (27.0-33.0) pg RDW 14.4 H (11.8-14.1) % MPV 11.3 H (8.0-11.0) fL Absolute Neutrophils 11.46 H (1.2-6.7) k/cumm Absolute Lymphocytes 0.82 L (1.2-3.4) k/cumm Absolute Monocytes 1.36 H (0.11-0.7) k/cumm PT 38.1 H D (9.3-11.0) sec INR 3.9 H D (0.9-1.1) Sodium 126 L (136-145) mmol/L Chloride 90 L (98-107) mmol/L BUN 85 H* (7-18) mg/dL Creatinine 2.19 H (0.70-1.30) mg/dL Glucose 226 H (74-106) mg/dL C-Reactive Protein 1.17 H (0.0-0.3) mg/dL 11/07/19 11/07/19 11/07/19 Range/Units 06:45 06:45 06:45 WBC 14.63 H (4.4-10.8) k/cumm Hgb (13.5-17.5) g/dL Hct (40.0-50.0) % MCV 102.3 H (80-95) fL MCH 35.5 H (27.0-33.0) pg RDW 14.3 H (11.8-14.1) % MPV (8.0-11.0) fL Absolute Neutrophils 11.40 H (1.2-6.7) k/cumm Absolute Lymphocytes 1.08 L (1.2-3.4) k/cumm Absolute Monocytes 1.81 H (0.11-0.7) k/cumm PT 31.9 H (9.3-11.0) sec INR 3.3 H D (0.9-1.1) Sodium 130 L (136-145) mmol/L Chloride 92 L (98-107) mmol/L BUN 74 H (7-18) mg/dL Creatinine 1.90 H (0.70-1.30) mg/dL Glucose 151 H D (74-106) mg/dL C-Reactive Protein (0.0-0.3) mg/dL Vital Signs Temperature 35.4 C L 11/07/19 08:10 Temperature Source Tympanic 11/07/19 08:10 Pulse 71 11/07/19 08:29 Pulse Rhythm Irregular 11/07/19 04:05 Respiratory Rate 16 11/07/19 08:10 Respiratory Effort 11/07/19 04:05 Respiratory Depth Normal 11/07/19 04:05 Respiratory Pattern Normal 11/07/19 04:05 Blood Pressure 116/73 11/07/19 08:10 Blood Pressure Position Supine 10/27/19 23:23 Pulse Oximetry 98 11/07/19 08:10 Oxygen Delivery Method Room Air 11/07/19 08:10 Oxygen Flow Rate 0 11/07/19 08:10 Pain Level 0 11/06/19 23:55 Comment 10/31/19 23:00 Intake & Output 11/06/19 11/06/19 11/07/19 11:59 23:59 11:59 Intake Total 1174.2 / 2239.767 1065.567 / 2239.767 450.5 / 450.5 Output Total 775 / 1725 950 / 1725 925 / 925 Balance 399.2 / 514.767 115.567 / 514.767 -474.5 / -474.5 Weight 80.1 kg 81.3 kg Intake: IV 574.2 / 1149.767 575.567 / 1149.767 250.5 / 250.5 Oral 600 / 1090 490 / 1090 200 / 200 Output: Urine 775 / 1725 950 / 1725 925 / 925 Other: Urine Color Yellow Light [place] Yellow Urine Appearance Clear Clear Clear Urine Odor None Strong Normal Comment dk yellow Voiding Methods Urinal Urinal Urinal Laboratory Results WBC 14.63 k/cumm (4.4-10.8) H 11/07/19 06:45 RBC 4.87 m/cumm (4.50-6.00) 11/07/19 06:45 Hgb 17.3 g/dL (13.5-17.5) 11/07/19 06:45 Hct 49.8 % (40.0-50.0) 11/07/19 06:45 MCV 102.3 fL (80-95) H 11/07/19 06:45 MCH 35.5 pg (27.0-33.0) H 11/07/19 06:45 MCHC 34.7 g/dL (32.0-36.0) 11/07/19 06:45 RDW 14.3 % (11.8-14.1) H 11/07/19 06:45 Plt Count 171 x1000/uL (130-400) 11/07/19 06:45 MPV 10.8 fL (8.0-11.0) 11/07/19 06:45 Immature Gran % 0.7 % 11/07/19 06:45 Neutrophils % 77.9 11/07/19 06:45 Band Neutrophils % Cancelled 11/06/19 Unknown Lymphocytes % 7.4 11/07/19 06:45 Atypical Lymphs % Cancelled 11/06/19 Unknown Monocytes % 12.4 11/07/19 06:45 Eosinophils % 1.5 11/07/19 06:45 Basophils % 0.1 11/07/19 06:45 Metamyelocytes % Cancelled 11/06/19 Unknown Myelocytes % Cancelled 11/06/19 Unknown Promyelocytes % Cancelled 11/06/19 Unknown Absolute Neutrophils 11.40 k/cumm (1.2-6.7) H 11/07/19 06:45 Absolute Lymphocytes 1.08 k/cumm (1.2-3.4) L 11/07/19 06:45 Absolute Monocytes 1.81 k/cumm (0.11-0.7) H 11/07/19 06:45 Absolute Eosinophils 0.22 k/cumm (0.0-0.7) 11/07/19 06:45 Absolute Basophils 0.01 k/cumm (0.0-0.2) 11/07/19 06:45 Nucleated RBCs Cancelled 11/06/19 Unknown Differential Comment Diff reviewed 11/07/19 06:45 Other Cell Type Cancelled 11/06/19 Unknown RBC Morphology See below 11/07/19 06:45 Polychromasia Cancelled 11/06/19 Unknown Hypochromasia Cancelled 11/06/19 Unknown Poikilocytosis Cancelled 11/06/19 Unknown Basophilic Stippling Cancelled 11/06/19 Unknown Anisocytosis Cancelled 11/06/19 Unknown Microcytosis Cancelled 11/06/19 Unknown Macrocytosis 1+ 11/07/19 06:45 Spherocytes Cancelled 11/06/19 Unknown Target Cells Cancelled 11/06/19 Unknown Tear Drop Cells Cancelled 11/06/19 Unknown Ovalocytes Cancelled 11/06/19 Unknown Stomatocytes Cancelled 11/06/19 Unknown [place] Bodies Cancelled 11/06/19 Unknown Danny Cells Cancelled 11/06/19 Unknown Acanthocytes (Spur) Cancelled 11/06/19 Unknown Schistocytes Cancelled 11/06/19 Unknown PT 31.9 sec (9.3-11.0) H 11/07/19 06:45 INR 3.3 (0.9-1.1) H D 11/07/19 06:45 ABG Sample Site Left radial 11/02/19 09:38 ABG pH 7.50 (7.35-7.45) H 11/02/19 09:38 ABG pCO2 40 mmHg (34-47) 11/02/19 09:38 ABG pO2 69 mmHg (83-108) L 11/02/19 09:38 ABG HCO3 31 mmol/L (22-28) H 11/02/19 09:38 ABG Total CO2 26 mmol/L (22-29) 11/02/19 09:38 ABG O2 Saturation 94 % (94-98) 11/02/19 09:38 ABG Base Excess 8.1 mmol/L (-3-3) H 11/02/19 09:38 FiO2 21 % 11/02/19 09:38 Sodium 130 mmol/L (136-145) L 11/07/19 06:45 Potassium 3.8 mmol/L (3.5-5.1) 11/07/19 06:45 Chloride 92 mmol/L (98-107) L 11/07/19 06:45 Carbon Dioxide 31.5 mmol/L (21.0-32.0) 11/07/19 06:45 Anion Gap 6.5 mmol/L (3-11) 11/07/19 06:45 BUN 74 mg/dL (7-18) H 11/07/19 06:45 Creatinine 1.90 mg/dL (0.70-1.30) H 11/07/19 06:45 Estimated GFR/1.73 m2 34.55 (mL/min/1.73m2) 11/07/19 06:45 Glucose 151 mg/dL (74-106) H D 11/07/19 06:45 Calcium 9.1 mg/dL (8.5-10.1) 11/07/19 06:45 Magnesium 2.4 mg/dL (1.8-2.4) 11/07/19 06:45 Troponin I 0.09 ng/mL (<0.06) H* 10/30/19 06:25 C-Reactive Protein 1.17 mg/dL (0.0-0.3) H 11/06/19 11:40 NT-Pro-B Natriuret Pep 6704 pg/mL (<300) H 10/31/19 06:36 Total Protein (PEP) Cancelled 11/04/19 07:15 Albumin % (PEP) Cancelled 11/04/19 07:15 Gbbwq-5-Cmqdfwyhg (%) Cancelled 11/04/19 07:15 Bgmft-2-Jlyfebnuq (%) Cancelled 11/04/19 07:15 Beta Globulins (%) Cancelled 11/04/19 07:15 Gamma Globulins (%) Cancelled 11/04/19 07:15 M-Bryan % Cancelled 11/04/19 07:15 PEP Comment Cancelled 11/04/19 07:15 Procalcitonin 0.2 ng/mL 11/07/19 06:45 TSH 1.16 uIU/mL (0.36-3.74) 10/28/19 06:40 Urine Color Yellow (Yellow) 11/02/19 11:30 Urine Clarity Clear (Clear) 11/02/19 11:30 Urine pH 7.5 (5-8) 11/02/19 11:30 Ur Specific [place] 1.020 (1.005-1.025) 11/02/19 11:30 Urine Protein Negative mg/dL (Negative) 11/02/19 11:30 Urine Ketones Negative mg/dL (Negative) 11/02/19 11:30 Urine Blood Trace-intact (Negative) H 11/02/19 11:30 Urine Nitrite Negative (Negative) 11/02/19 11:30 Urine Bilirubin Negative (Negative) 11/02/19 11:30 Urine Urobilinogen 0.2 EU/dL (Up TO 0.2) 11/02/19 11:30 Ur Leukocyte Esterase Negative (Negative) 11/02/19 11:30 Urine RBC 3-5 HPF (0-2) H 11/02/19 11:30 Urine WBC 0-2 HPF (0-5) 11/02/19 11:30 Ur Epithelial Cells Rare HPF (Negative) 11/02/19 11:30 Urine Crystals Negative HPF (Negative) 11/02/19 11:30 Urine Bacteria Rare HPF (Negative) 11/02/19 11:30 Urine Casts 3-5 hyaline LPF (Negative) 11/02/19 11:30 Urine Mucus Negative (Negative) 11/02/19 11:30 Urine Other Negative (Negative) 11/01/19 11:30 Ur Culture Indicated? No 11/02/19 11:30 Urine Glucose Negative mg/dL (Negative) 11/02/19 11:30 Vancomycin Trough 19.3 ug/mL (10.0-20.0) 11/05/19 15:20 Digoxin 1.26 ng/mL (0.90-2.00) 11/06/19 11:40 COVID-19 PCR Negative (Negative) 10/28/19 02:40 Nasopharyn COVID-19 PCR Not Applicable 10/28/19 02:40 M. pneumoniae Source Sputum 10/29/19 05:40 M. pneumoniae (PCR) Negative 10/29/19 05:40 Ur Strep pneumoniae Ag Negative (Negative) 10/29/19 14:25 Ref Test Perform Site [place] [facility] lab 10/28/19 02:40
[2019-11-07] MEDS: Lidocaine 5% Patch 2 PATCH TP (17:22)
[2019-11-07] MEDS: Simvastatin 20 MG TAB PO (20:25)
[2019-11-07] MEDS: rOPINIRole 0.5 MG TAB PO (21:31)
[2019-11-07] MEDS: Insulin Glargine 300 UNITS/3 ML PEN 10 UNITS SC (21:31)
[2019-11-08] MEDS: LIDOCAINE Patch Removal TP (07:15)
[2019-11-08 07:24] LABS: Abs Immature Grans 0.09 k/cumm (0.0-0.09); HCT 49.6 % (40.0-50.0); HGB 17.1 g/dL (13.5-17.5); Mean Corp. HGB Concentration 34.5 g/dL (32.0-36.0); Mean Corpuscular Hemoglobin 35.8 pg (27.0-33.0); Mean Corpuscular Volume 103.8 fL (80-95); Mean Platelet Volume 11.5 fL (8.0-11.0); Platelet Count 143 x1000/uL (130-400); RBC 4.78 m/cumm (4.50-6.00); RBC Distribution Width 14.3 % (11.8-14.1); White Blood Cell Count 14.05 k/cumm (4.4-10.8)
[2019-11-08 07:42] LABS: Absolute Eosinophil Count 0.14 k/cumm (0.0-0.7); Absolute Lymphocyte Count 0.98 k/cumm (1.2-3.4); Absolute Monocyte Count 1.69 k/cumm (0.11-0.7); Absolute Neutrophil Count 11.24 k/cumm (1.2-6.7)
[2019-11-08 07:43] LABS: Diff Comment Manual Differential; RBC Morphology Normal
[2019-11-08] MEDS: Ipratropium/Albuterol 4 GM 120 PUFF INH IH ×4 (07:55→19:44)
[2019-11-08] MEDS: Insulin Aspart 300 UNITS/3 ML PEN SC ×4 (07:59→21:35)
[2019-11-08] MEDS: predniSONE 5 MG TAB PO (08:01)
[2019-11-08] MEDS: Pantoprazole 40 MG TABCR PO (08:01)
[2019-11-08] MEDS: Metoprolol 25 MG TAB 37.5 MG PO ×2 (08:02→19:44)
[2019-11-08 08:03] VITALS: PULSE 76
[2019-11-08] MEDS: guaiFENesin 600 MG TABCR PO ×2 (08:03→19:44)
[2019-11-08] MEDS: Digoxin 0.125 MG TAB PO (08:03)
[2019-11-08] MEDS: DULoxetine 30 MG CAP PO (08:03)
[2019-11-08] MEDS: Normal Saline Flush 10 ML SYR 20 ML IVP ×2 (08:05→19:45)
[2019-11-08] MEDS: MEROPENEM 1 GM in Normal Saline 100 ML IVPB ×2 (08:05→19:43)
[2019-11-08] MEDS: Allopurinol 300 MG TAB PO (08:05)
[2019-11-08 08:07] VITALS: BP 106/73; PULSE 55; RESP 20; TEMP 35; O2SAT 92
--- NOTE | 2019-11-08 10:48 | W.PM.PROGNOT ---
Date of Service Date of service: 11/08/19 Time of Service: 10:51 Assessment and Plan Assessment and plan (1) Acute on chronic combined systolic (congestive) and diastolic (congestive) heart failure: Status: Acute Assessment and plan: Wt remains steady and only with tr pedal edema while off diuretics. Euvolemic. Monitor for need to restart torsemide ( home med ). (2) Dilated idiopathic cardiomyopathy: Status: Chronic Assessment and plan: EF of less than 20%. Palliative to see. (3) Pneumonia: Status: Acute Assessment and plan: On Meropenem and Vanc. WBC 13.64 > 14.63 > 14.05 CBC in AM (4) REI (acute kidney injury): Status: Acute Assessment and plan: Cr improved to 1.9. Cont to hold diuretics. Repeat lab in AM (5) AF (paroxysmal atrial fibrillation): Status: Chronic Assessment and plan: Rate controlled. Cont metoprolol (6) Anticoagulated on warfarin: Status: Acute Assessment and plan: Cont Warfarin. INR 3.3 (7) Depression: Status: Chronic Assessment and plan: Cymbalta increased to 30mg daily on 11/05. Affect, overall, appears to have improved. Subjective Subjective Patient reports: no new complaints and feels better Interval history since last seen: Was able to walk to door in the room today with PT Exam Const General: cooperative and no acute distress Nutritional Appearance: average body habitus Orientation: alert and oriented x3 Resp Effort & Inspection: normal respiratory effort Auscultation: clear to auscultation bilaterally and diminished lung sounds Cardio Jugular venous pressure: no JVD Rhythm: other (Irreg rhythm) GI Palpation: soft Auscultation: normal bowel sounds Extrem General: normal exam except as noted and pedal edema (trace bilateral) Psych Appearance: grossly normal Speech and Movement: speech and movement normal Mood: congruent mood Affect: normal affect Attitude: cooperative Thought Process: normal Objective Objective Clinical Data: Abnormal lab results 11/08/19 11/08/19 Range/Units 06:47 06:47 WBC 14.05 H (4.4-10.8) k/cumm MCV 103.8 H (80-95) fL MCH 35.8 H (27.0-33.0) pg RDW 14.3 H (11.8-14.1) % MPV 11.5 H (8.0-11.0) fL Absolute Neutrophils 11.24 H (1.2-6.7) k/cumm Absolute Lymphocytes 0.98 L (1.2-3.4) k/cumm Absolute Monocytes 1.69 H (0.11-0.7) k/cumm PT 20.0 H D (9.3-11.0) sec INR 2.0 H D (0.9-1.1) Vital Signs Temperature 35.0 C L 11/08/19 08:07 Temperature Source Tympanic 11/08/19 08:07 Pulse 55 L 11/08/19 08:07 Pulse Rhythm Irregular 11/08/19 03:50 Respiratory Rate 20 11/08/19 08:07 Respiratory Effort 11/08/19 03:50 Respiratory Depth Normal 11/08/19 03:50 Respiratory Pattern Normal 11/08/19 03:50 Blood Pressure 106/73 11/08/19 08:07 Blood Pressure Position Supine 10/27/19 23:23 Pulse Oximetry 92 L 11/08/19 08:07 Oxygen Delivery Method Room Air 11/08/19 08:07 Oxygen Flow Rate 0 11/08/19 08:07 Pain Level 0 11/07/19 23:24 Comment 11/07/19 15:16 Intake & Output 11/07/19 11/07/19 11/08/19 11:59 23:59 11:59 Intake Total 973.5 / 2223.5 1250 / 2223.5 Output Total 1625 / 2525 900 / 2525 Balance -651.5 / -301.5 350 / -301.5 Weight 81.3 kg 81.6 kg Intake: IV 413.5 / 803.5 390 / 803.5 Oral 560 / 1420 860 / 1420 Output: Urine 1625 / 2525 900 / 2525 Other: Urine Color Yellow Yellow Urine Appearance Clear Clear Clear Urine Odor None None Comment Void x1 in the toilet. Void x1 in the toilet. Voiding Methods Toilet Urinal Laboratory Results WBC 14.05 k/cumm (4.4-10.8) H 11/08/19 06:47 RBC 4.78 m/cumm (4.50-6.00) 11/08/19 06:47 Hgb 17.1 g/dL (13.5-17.5) 11/08/19 06:47 Hct 49.6 % (40.0-50.0) 11/08/19 06:47 MCV 103.8 fL (80-95) H 11/08/19 06:47 MCH 35.8 pg (27.0-33.0) H 11/08/19 06:47 MCHC 34.5 g/dL (32.0-36.0) 11/08/19 06:47 RDW 14.3 % (11.8-14.1) H 11/08/19 06:47 Plt Count 143 x1000/uL (130-400) 11/08/19 06:47 MPV 11.5 fL (8.0-11.0) H 11/08/19 06:47 Immature Gran % 0.0 % 11/08/19 06:47 Neutrophils % 80.0 11/08/19 06:47 Band Neutrophils % Cancelled 11/06/19 Unknown Lymphocytes % 7.0 11/08/19 06:47 Atypical Lymphs % Cancelled 11/06/19 Unknown Monocytes % 12.0 11/08/19 06:47 Eosinophils % 1.0 11/08/19 06:47 Basophils % 0.0 11/08/19 06:47 Metamyelocytes % Cancelled 11/06/19 Unknown Myelocytes % Cancelled 11/06/19 Unknown Promyelocytes % Cancelled 11/06/19 Unknown Absolute Neutrophils 11.24 k/cumm (1.2-6.7) H 11/08/19 06:47 Absolute Lymphocytes 0.98 k/cumm (1.2-3.4) L 11/08/19 06:47 Absolute Monocytes 1.69 k/cumm (0.11-0.7) H 11/08/19 06:47 Absolute Eosinophils 0.14 k/cumm (0.0-0.7) 11/08/19 06:47 Absolute Basophils 0.00 k/cumm (0.0-0.2) 11/08/19 06:47 Nucleated RBCs Cancelled 11/06/19 Unknown Differential Comment Manual differential 11/08/19 06:47 Other Cell Type Cancelled 11/06/19 Unknown RBC Morphology Normal 11/08/19 06:47 Polychromasia Cancelled 11/06/19 Unknown Hypochromasia Cancelled 11/06/19 Unknown Poikilocytosis Cancelled 11/06/19 Unknown Basophilic Stippling Cancelled 11/06/19 Unknown Anisocytosis Cancelled 11/06/19 Unknown Microcytosis Cancelled 11/06/19 Unknown Macrocytosis 1+ 11/07/19 06:45 Spherocytes Cancelled 11/06/19 Unknown Target Cells Cancelled 11/06/19 Unknown Tear Drop Cells Cancelled 11/06/19 Unknown Ovalocytes Cancelled 11/06/19 Unknown Stomatocytes Cancelled 11/06/19 Unknown [place] Bodies Cancelled 11/06/19 Unknown Danny Cells Cancelled 11/06/19 Unknown Acanthocytes (Spur) Cancelled 11/06/19 Unknown Schistocytes Cancelled 11/06/19 Unknown PT 20.0 sec (9.3-11.0) H D 11/08/19 06:47 INR 2.0 (0.9-1.1) H D 11/08/19 06:47 ABG Sample Site Left radial 11/02/19 09:38 ABG pH 7.50 (7.35-7.45) H 11/02/19 09:38 ABG pCO2 40 mmHg (34-47) 11/02/19 09:38 ABG pO2 69 mmHg (83-108) L 11/02/19 09:38 ABG HCO3 31 mmol/L (22-28) H 11/02/19 09:38 ABG Total CO2 26 mmol/L (22-29) 11/02/19 09:38 ABG O2 Saturation 94 % (94-98) 11/02/19 09:38 ABG Base Excess 8.1 mmol/L (-3-3) H 11/02/19 09:38 FiO2 21 % 11/02/19 09:38 Sodium 130 mmol/L (136-145) L 11/07/19 06:45 Potassium 3.8 mmol/L (3.5-5.1) 11/07/19 06:45 Chloride 92 mmol/L (98-107) L 11/07/19 06:45 Carbon Dioxide 31.5 mmol/L (21.0-32.0) 11/07/19 06:45 Anion Gap 6.5 mmol/L (3-11) 11/07/19 06:45 BUN 74 mg/dL (7-18) H 11/07/19 06:45 Creatinine 1.90 mg/dL (0.70-1.30) H 11/07/19 06:45 Estimated GFR/1.73 m2 34.55 (mL/min/1.73m2) 11/07/19 06:45 Glucose 151 mg/dL (74-106) H D 11/07/19 06:45 Calcium 9.1 mg/dL (8.5-10.1) 11/07/19 06:45 Magnesium 2.4 mg/dL (1.8-2.4) 11/07/19 06:45 Troponin I 0.09 ng/mL (<0.06) H* 10/30/19 06:25 C-Reactive Protein 1.17 mg/dL (0.0-0.3) H 11/06/19 11:40 NT-Pro-B Natriuret Pep 6704 pg/mL (<300) H 10/31/19 06:36 Total Protein (PEP) Cancelled 11/04/19 07:15 Albumin % (PEP) Cancelled 11/04/19 07:15 Egptn-1-Fnstlnemw (%) Cancelled 11/04/19 07:15 Xhfmz-7-Geihsfphk (%) Cancelled 11/04/19 07:15 Beta Globulins (%) Cancelled 11/04/19 07:15 Gamma Globulins (%) Cancelled 11/04/19 07:15 M-Bryan % Cancelled 11/04/19 07:15 PEP Comment Cancelled 11/04/19 07:15 Procalcitonin 0.2 ng/mL 11/07/19 06:45 TSH 1.16 uIU/mL (0.36-3.74) 10/28/19 06:40 Urine Color Yellow (Yellow) 11/02/19 11:30 Urine Clarity Clear (Clear) 11/02/19 11:30 Urine pH 7.5 (5-8) 11/02/19 11:30 Ur Specific [place] 1.020 (1.005-1.025) 11/02/19 11:30 Urine Protein Negative mg/dL (Negative) 11/02/19 11:30 Urine Ketones Negative mg/dL (Negative) 11/02/19 11:30 Urine Blood Trace-intact (Negative) H 11/02/19 11:30 Urine Nitrite Negative (Negative) 11/02/19 11:30 Urine Bilirubin Negative (Negative) 11/02/19 11:30 Urine Urobilinogen 0.2 EU/dL (Up TO 0.2) 11/02/19 11:30 Ur Leukocyte Esterase Negative (Negative) 11/02/19 11:30 Urine RBC 3-5 HPF (0-2) H 11/02/19 11:30 Urine WBC 0-2 HPF (0-5) 11/02/19 11:30 Ur Epithelial Cells Rare HPF (Negative) 11/02/19 11:30 Urine Crystals Negative HPF (Negative) 11/02/19 11:30 Urine Bacteria Rare HPF (Negative) 11/02/19 11:30 Urine Casts 3-5 hyaline LPF (Negative) 11/02/19 11:30 Urine Mucus Negative (Negative) 11/02/19 11:30 Urine Other Negative (Negative) 11/01/19 11:30 Ur Culture Indicated? No 11/02/19 11:30 Urine Glucose Negative mg/dL (Negative) 11/02/19 11:30 Vancomycin Trough 19.3 ug/mL (10.0-20.0) 11/05/19 15:20 Digoxin 1.26 ng/mL (0.90-2.00) 11/06/19 11:40 COVID-19 PCR Negative (Negative) 10/28/19 02:40 Nasopharyn COVID-19 PCR Not Applicable 10/28/19 02:40 M. pneumoniae Source Sputum 10/29/19 05:40 M. pneumoniae (PCR) Negative 10/29/19 05:40 Ur Strep pneumoniae Ag Negative (Negative) 10/29/19 14:25 Ref Test Perform Site [place] [facility] 10/28/19 02:40
[2019-11-08 12:19] VITALS: BP 104/70; PULSE 66; RESP 18; TEMP 36; O2SAT 93
--- NOTE | 2019-11-08 12:43 | PT.INTREAT ---
Date of service: 11/08/19 Time of Service: 09:50 PT Notes Visit Reasons: RLL PNA,ACUTE EXACERBATION OF CHRONIC COMBINED CHF Inpatient Physical Therapy Treatment Note [facility] Date: 11/08/2019 PRECAUTIONS: Fall, Standard, Activity as tolerated SUBJECTIVE: Stated he is feeling about the same today, but definitely more motivated to participate in PT activities today. Indicated he is still very weak. OBJECTIVE: PAIN: Not complaining of pain with exercises. BED MOBILITY/TRANSFERS Rolling L/R: SBA Supine-sit: SBA Sit-supine: SBA Sit-stand: SBA Stand-sit: SBA GAIT Assistive Device: FWW Weight bearing: Full Assist: CGA Distance: 40ft THEREX: Performed ankle pumps x 20, seated hip flexion x 10, seated hip abd/add x 10 and LAQs x 10 each. ASSESSMENT: Tolerated today's session very well with good effort given despite indicating that he still feels weak. PLAN: Continue with current plan of care with focus on ambulation and strengthening for improved ADL function. TREATMENT CODE/TIME: TP (54248s3), TA (31843c8), 09:50 to 10:15 (25')
[2019-11-08] MEDS: Nystatin 500000 UNITS/5 ML SUSP 5ML CUP PO ×2 (13:32→21:34)
--- NOTE | 2019-11-08 15:06 | PDOC.CMPRO ---
- If Service Date Differs Date of service: 11/08/19 Time of Service: 15:06 Care Management Progress Note S/O: Srini looked better today he was sitting up on the side of the bed and able to participate with PT today. CM met with his daughter she feels he would benefit from a short rehab stay. Per assessment he remains on IV abx, his WBC is still elevated, he does not appear ready at this time for discharge. CM will review options with Srini regarding referrals and local SNF for short term rehab services. A: Srini is a 79 year old male admitted to [facility] on 10/28/19 for CHF exacerbation. P: Srini will be discharged home vs SNF for short term rehab his daughter would like him to consider [facility]. CM will continue to coordinate services and discharge plan as appropriate.
[2019-11-08 15:24] VITALS: BP 176/73; PULSE 70; RESP 19; TEMP 36.2; O2SAT 95
[2019-11-08] MEDS: Normal Saline Flush 10 ML SYR IVP (15:43)
[2019-11-08] MEDS: VANCOMYCIN 750 MG in Normal Saline 250 ML 167 MG IV (15:44)
[2019-11-08] MEDS: Lidocaine 5% Patch 2 PATCH TP (17:14)
[2019-11-08 19:10] VITALS: BP 110/76; PULSE 90; RESP 19; TEMP 35.9; O2SAT 99
[2019-11-08] MEDS: Simvastatin 20 MG TAB PO (19:44)
[2019-11-08] MEDS: rOPINIRole 0.5 MG TAB PO (21:34)
[2019-11-08] MEDS: Insulin Glargine 300 UNITS/3 ML PEN 10 UNITS SC (21:34)
[2019-11-08 23:11] VITALS: BP 103/71; PULSE 70; RESP 18; TEMP 36.8; O2SAT 95
[2019-11-08 23:20] LABS: Legionella Ag Detection Urine Negative (Negative)
[2019-11-09] VITALS (10 sets, daily range): BP systolic 96–119; BP diastolic 63–78; PULSE 63–90; RESP 17–18; TEMP 35.5–36.7; O2SAT 93–99
--- NOTE | 2019-11-09 | DI.RAD_ITS ---
EXAM: XR CHEST 2V PA LATERAL CLINICAL HISTORY: PNA TECHNIQUE: 2D digital imaging was performed. COMPARISON: CR,XR XR CHEST 2V PA LATERAL from 11/01/2019 FINDINGS: MEDIASTINUM: Normal. HEART: Normal. PULMONARY VASCULATURE: Normal. LUNGS: Increased lung markings are seen in the bases right greater than left. PLEURAL SPACE: No pleural effusion or pneumothorax. BONE:Degenerative changes are seen in the spine. OTHER FINDINGS:Pacing wires are in stable position. IMPRESSION: Increased lung markings in the bases bilaterally right greater than left. This may represent atelect asis, edema or pneumonia. Please correlate clinically. DATA REPOSITORY: RADIATION DOSE DELIVERED:
[2019-11-09] MEDS: Nystatin 500000 UNITS/5 ML SUSP 5ML CUP PO ×5 (06:07→21:57)
[2019-11-09 06:53] LABS: Abs Immature Grans 0.11 k/cumm (0.0-0.09); Absolute Basophil Count 0.01 k/cumm (0.0-0.2); Absolute Eosinophil Count 0.41 k/cumm (0.0-0.7); Absolute Lymphocyte Count 1.39 k/cumm (1.2-3.4); Absolute Monocyte Count 1.39 k/cumm (0.11-0.7); Absolute Neutrophil Count 10.21 k/cumm (1.2-6.7); Basophils % 0.1; HCT 46.3 % (40.0-50.0); HGB 15.8 g/dL (13.5-17.5); Immature Grans % 0.8 %; Lymphocytes % 10.3; Mean Corp. HGB Concentration 34.1 g/dL (32.0-36.0); Mean Corpuscular Hemoglobin 35.6 pg (27.0-33.0); Mean Corpuscular Volume 104.3 fL (80-95); Mean Platelet Volume 11.5 fL (8.0-11.0); Monocytes % 10.3; Neutrophils % 75.5; Platelet Count 132 x1000/uL (130-400); RBC 4.44 m/cumm (4.50-6.00); RBC Distribution Width 14.2 % (11.8-14.1); White Blood Cell Count 13.52 k/cumm (4.4-10.8)
[2019-11-09 07:03] LABS: INR 1.5 (0.9-1.1)
[2019-11-09 07:06] LABS: Anion Gap 5.2 mmol/L (3-11); BUN 39 mg/dL (7-18); CO2 31.8 mmol/L (21.0-32.0); CREATININE 1.55 mg/dL (0.70-1.30); Calcium 8.8 mg/dL (8.5-10.1); Chloride 94 mmol/L (98-107); Glucose 130 mg/dL (74-106); Potassium 3.9 mmol/L (3.5-5.1); Sodium 131 mmol/L (136-145)
[2019-11-09] MEDS: Ipratropium/Albuterol 4 GM 120 PUFF INH IH ×4 (08:03→19:49)
[2019-11-09] MEDS: Allopurinol 300 MG TAB PO (08:05)
[2019-11-09] MEDS: DULoxetine 30 MG CAP PO (08:05)
[2019-11-09] MEDS: guaiFENesin 600 MG TABCR PO ×2 (08:05→19:50)
[2019-11-09] MEDS: Digoxin 0.125 MG TAB PO (08:05)
[2019-11-09] MEDS: Pantoprazole 40 MG TABCR PO (08:06)
[2019-11-09] MEDS: predniSONE 5 MG TAB PO (08:06)
[2019-11-09] MEDS: Normal Saline Flush 10 ML SYR 20 ML IVP ×2 (08:06→19:48)
[2019-11-09] MEDS: MEROPENEM 1 GM in Normal Saline 100 ML IVPB ×2 (08:08→19:50)
[2019-11-09] MEDS: Metoprolol 25 MG TAB 37.5 MG PO ×2 (08:09→19:50)
[2019-11-09] MEDS: Normal Saline 500 ML 30 ML IV (08:13)
[2019-11-09] MEDS: Milk of Magnesia 30 ML CUP PO (09:54)
[2019-11-09 10:30] LABS: Vancomycin, Trough 18.7 ug/mL (10.0-20.0)
--- NOTE | 2019-11-09 10:34 | W.PM.PROGNOT ---
Date of Service Date of service: 11/09/19 Time of Service: 10:44 Assessment and Plan Assessment and plan (1) Acute on chronic combined systolic (congestive) and diastolic (congestive) heart failure: Status: Acute Assessment and plan: Wt remains steady and only with tr pedal edema while off diuretics. Euvolemic. Monitor for need to restart torsemide ( home med ). (2) Dilated idiopathic cardiomyopathy: Status: Chronic Assessment and plan: EF of less than 20%. Palliative to see. (3) Pneumonia: Status: Acute Assessment and plan: On Meropenem and Vanc. Stop Vanc. WBC 13.64 > 14.63 > 14.05 > 13.52 CBC in AM (4) REI (acute kidney injury): Status: Acute Assessment and plan: Cr improved to 1.9 > 1.55 Cont to hold diuretics. Repeat lab in AM (5) AF (paroxysmal atrial fibrillation): Status: Chronic Assessment and plan: Rate controlled. Cont metoprolol (6) Anticoagulated on warfarin: Status: Acute Assessment and plan: Warfarin was on hold d/t elevated INR. Now INR down to 1.5 Warfarin 5 mg today, then resume 1 mg on MWFSat. Monitor daily (7) Depression: Status: Chronic Assessment and plan: Cymbalta increased to 30mg daily on 11/05. Affect, overall, appears to have improved. Subjective Subjective Patient reports: no new complaints and feels better Interval history since last seen: Working with PT Wishes to d/c to home when appropriate with HH. Exam Const General: cooperative and no acute distress Nutritional Appearance: average body habitus Orientation: alert and oriented x3 Resp Effort & Inspection: normal respiratory effort Auscultation: clear to auscultation bilaterally and diminished lung sounds Cardio Jugular venous pressure: no JVD Rhythm: other (Irreg rhythm) GI Palpation: soft Auscultation: normal bowel sounds Extrem General: normal exam except as noted and pedal edema (trace bilateral) Psych Appearance: grossly normal Speech and Movement: speech and movement normal Mood: congruent mood Affect: normal affect Attitude: cooperative Thought Process: normal Objective Objective Clinical Data: Abnormal lab results 11/09/19 11/09/19 11/09/19 Range/Units 06:15 06:15 06:15 WBC 13.52 H (4.4-10.8) k/cumm RBC 4.44 L (4.50-6.00) m/cumm MCV 104.3 H (80-95) fL MCH 35.6 H (27.0-33.0) pg RDW 14.2 H (11.8-14.1) % MPV 11.5 H (8.0-11.0) fL Absolute Neutrophils 10.21 H (1.2-6.7) k/cumm Absolute Monocytes 1.39 H (0.11-0.7) k/cumm PT 15.0 H D (9.3-11.0) sec INR 1.5 H (0.9-1.1) Sodium 131 L (136-145) mmol/L Chloride 94 L (98-107) mmol/L BUN 39 H D (7-18) mg/dL Creatinine 1.55 H (0.70-1.30) mg/dL Glucose 130 H (74-106) mg/dL Vital Signs Temperature 35.9 C L 11/09/19 07:35 Temperature Source Tympanic 11/09/19 07:35 Pulse 90 11/09/19 08:05 Pulse Rhythm Irregular 11/09/19 07:35 Respiratory Rate 18 11/09/19 07:35 Respiratory Effort 11/09/19 07:35 Respiratory Depth Normal 11/09/19 07:35 Respiratory Pattern Normal 11/09/19 07:35 Blood Pressure 112/65 11/09/19 07:35 Blood Pressure Position Supine 10/27/19 23:23 Pulse Oximetry 94 L 11/09/19 07:35 Oxygen Delivery Method Room Air 11/09/19 07:35 Oxygen Flow Rate 0 11/09/19 07:35 Pain Level 0 11/09/19 07:35 Comment 11/07/19 15:16 Intake & Output 11/08/19 11/08/19 11/09/19 11:59 23:59 11:59 Intake Total 100 / 440 340 / 440 500 / 500 Output Total 674 / 674 550 / 550 Balance 100 / -234 -334 / -234 -50 / -50 Weight 81.6 kg 82 kg Intake: IV 100 / 200 100 / 200 20 / 20 Oral 240 / 240 480 / 480 Output: Urine 650 / 650 550 / 550 Post Void Residual 24 / 24 Other: Urine Color Yellow Light [place] Urine Appearance Clear Clear Clear Urine Odor Normal Voiding Methods Toilet Urinal Incontinent Laboratory Results WBC 13.52 k/cumm (4.4-10.8) H 11/09/19 06:15 RBC 4.44 m/cumm (4.50-6.00) L 11/09/19 06:15 Hgb 15.8 g/dL (13.5-17.5) 11/09/19 06:15 Hct 46.3 % (40.0-50.0) 11/09/19 06:15 MCV 104.3 fL (80-95) H 11/09/19 06:15 MCH 35.6 pg (27.0-33.0) H 11/09/19 06:15 MCHC 34.1 g/dL (32.0-36.0) 11/09/19 06:15 RDW 14.2 % (11.8-14.1) H 11/09/19 06:15 Plt Count 132 x1000/uL (130-400) 11/09/19 06:15 MPV 11.5 fL (8.0-11.0) H 11/09/19 06:15 Immature Gran % 0.8 % 11/09/19 06:15 Neutrophils % 75.5 11/09/19 06:15 Band Neutrophils % Cancelled 11/06/19 Unknown Lymphocytes % 10.3 11/09/19 06:15 Atypical Lymphs % Cancelled 11/06/19 Unknown Monocytes % 10.3 11/09/19 06:15 Eosinophils % 3.0 11/09/19 06:15 Basophils % 0.1 11/09/19 06:15 Metamyelocytes % Cancelled 11/06/19 Unknown Myelocytes % Cancelled 11/06/19 Unknown Promyelocytes % Cancelled 11/06/19 Unknown Absolute Neutrophils 10.21 k/cumm (1.2-6.7) H 11/09/19 06:15 Absolute Lymphocytes 1.39 k/cumm (1.2-3.4) 11/09/19 06:15 Absolute Monocytes 1.39 k/cumm (0.11-0.7) H 11/09/19 06:15 Absolute Eosinophils 0.41 k/cumm (0.0-0.7) 11/09/19 06:15 Absolute Basophils 0.01 k/cumm (0.0-0.2) 11/09/19 06:15 Nucleated RBCs Cancelled 11/06/19 Unknown Differential Comment Manual differential 11/08/19 06:47 Other Cell Type Cancelled 11/06/19 Unknown RBC Morphology Normal 11/08/19 06:47 Polychromasia Cancelled 11/06/19 Unknown Hypochromasia Cancelled 11/06/19 Unknown Poikilocytosis Cancelled 11/06/19 Unknown Basophilic Stippling Cancelled 11/06/19 Unknown Anisocytosis Cancelled 11/06/19 Unknown Microcytosis Cancelled 11/06/19 Unknown Macrocytosis 1+ 11/07/19 06:45 Spherocytes Cancelled 11/06/19 Unknown Target Cells Cancelled 11/06/19 Unknown Tear Drop Cells Cancelled 11/06/19 Unknown Ovalocytes Cancelled 11/06/19 Unknown Stomatocytes Cancelled 11/06/19 Unknown [place] Bodies Cancelled 11/06/19 Unknown Danny Cells Cancelled 11/06/19 Unknown Acanthocytes (Spur) Cancelled 11/06/19 Unknown Schistocytes Cancelled 11/06/19 Unknown PT 15.0 sec (9.3-11.0) H D 11/09/19 06:15 INR 1.5 (0.9-1.1) H 11/09/19 06:15 ABG Sample Site Left radial 11/02/19 09:38 ABG pH 7.50 (7.35-7.45) H 11/02/19 09:38 ABG pCO2 40 mmHg (34-47) 11/02/19 09:38 ABG pO2 69 mmHg (83-108) L 11/02/19 09:38 ABG HCO3 31 mmol/L (22-28) H 11/02/19 09:38 ABG Total CO2 26 mmol/L (22-29) 11/02/19 09:38 ABG O2 Saturation 94 % (94-98) 11/02/19 09:38 ABG Base Excess 8.1 mmol/L (-3-3) H 11/02/19 09:38 FiO2 21 % 11/02/19 09:38 Sodium 131 mmol/L (136-145) L 11/09/19 06:15 Potassium 3.9 mmol/L (3.5-5.1) 11/09/19 06:15 Chloride 94 mmol/L (98-107) L 11/09/19 06:15 Carbon Dioxide 31.8 mmol/L (21.0-32.0) 11/09/19 06:15 Anion Gap 5.2 mmol/L (3-11) 11/09/19 06:15 BUN 39 mg/dL (7-18) H D 11/09/19 06:15 Creatinine 1.55 mg/dL (0.70-1.30) H 11/09/19 06:15 Estimated GFR/1.73 m2 43.70 (mL/min/1.73m2) 11/09/19 06:15 Glucose 130 mg/dL (74-106) H 11/09/19 06:15 Calcium 8.8 mg/dL (8.5-10.1) 11/09/19 06:15 Magnesium 2.4 mg/dL (1.8-2.4) 11/07/19 06:45 Troponin I 0.09 ng/mL (<0.06) H* 10/30/19 06:25 C-Reactive Protein 1.17 mg/dL (0.0-0.3) H 11/06/19 11:40 NT-Pro-B Natriuret Pep 6704 pg/mL (<300) H 10/31/19 06:36 Total Protein (PEP) Cancelled 11/04/19 07:15 Albumin % (PEP) Cancelled 11/04/19 07:15 Teiac-2-Wlfeabbyc (%) Cancelled 11/04/19 07:15 Pkgmj-8-Cgiqfcvuv (%) Cancelled 11/04/19 07:15 Beta Globulins (%) Cancelled 11/04/19 07:15 Gamma Globulins (%) Cancelled 11/04/19 07:15 M-Bryan % Cancelled 11/04/19 07:15 PEP Comment Cancelled 11/04/19 07:15 Procalcitonin 0.2 ng/mL 11/07/19 06:45 TSH 1.16 uIU/mL (0.36-3.74) 10/28/19 06:40 Urine Color Yellow (Yellow) 11/02/19 11:30 Urine Clarity Clear (Clear) 11/02/19 11:30 Urine pH 7.5 (5-8) 11/02/19 11:30 Ur Specific [place] 1.020 (1.005-1.025) 11/02/19 11:30 Urine Protein Negative mg/dL (Negative) 11/02/19 11:30 Urine Ketones Negative mg/dL (Negative) 11/02/19 11:30 Urine Blood Trace-intact (Negative) H 11/02/19 11:30 Urine Nitrite Negative (Negative) 11/02/19 11:30 Urine Bilirubin Negative (Negative) 11/02/19 11:30 Urine Urobilinogen 0.2 EU/dL (Up TO 0.2) 11/02/19 11:30 Ur Leukocyte Esterase Negative (Negative) 11/02/19 11:30 Urine RBC 3-5 HPF (0-2) H 11/02/19 11:30 Urine WBC 0-2 HPF (0-5) 11/02/19 11:30 Ur Epithelial Cells Rare HPF (Negative) 11/02/19 11:30 Urine Crystals Negative HPF (Negative) 11/02/19 11:30 Urine Bacteria Rare HPF (Negative) 11/02/19 11:30 Urine Casts 3-5 hyaline LPF (Negative) 11/02/19 11:30 Urine Mucus Negative (Negative) 11/02/19 11:30 Urine Other Negative (Negative) 11/01/19 11:30 Ur Culture Indicated? No 11/02/19 11:30 Urine Glucose Negative mg/dL (Negative) 11/02/19 11:30 Vancomycin Trough 18.7 ug/mL (10.0-20.0) 11/09/19 10:07 Digoxin 1.26 ng/mL (0.90-2.00) 11/06/19 11:40 COVID-19 PCR Negative (Negative) 10/28/19 02:40 Nasopharyn COVID-19 PCR Not Applicable 10/28/19 02:40 Urine Legionella Ag Negative (Negative) 11/07/19 04:05 M. pneumoniae Source Sputum 10/29/19 05:40 M. pneumoniae (PCR) Negative 10/29/19 05:40 Ur Strep pneumoniae Ag Negative (Negative) 10/29/19 14:25 Ref Test Perform Site [facility] 10/28/19 02:40
[2019-11-09] MEDS: Warfarin 4 MG TAB PO (11:30)
[2019-11-09] MEDS: Insulin Aspart 300 UNITS/3 ML PEN SC ×3 (12:03→22:00)
[2019-11-09 14:25] LABS: Albumin 46.9 % (55.8-66.1); Comment (See Note); Monoclonal Spike 4.5 % (None Seen); Total Protein 8.5 g/dL (6.3-8.2)
--- NOTE | 2019-11-09 14:43 | PDOC.CMPRO ---
- If Service Date Differs Date of service: 11/09/19 Time of Service: 14:43 Care Management Progress Note S/O: Irineo was sitting up on the edge of his bed when CM met with him. He reported that he was feeling better today than last week. He stated that he was going to have a repeat chest xray today. He stated that he hasn't been working much with PT, but plans to this week. Per report, PT states that he is more motivated to participate. CM discussed the recommendation for short term rehab, which Irineo is still not agreeable to. CM will continue to follow. A: Srini is a 79 year old male admitted to [facility] on 10/28/19 for CHF exacerbation. P: Srini will be discharged home vs SNF for short term rehab his daughter would like him to consider the [facility]. CM will continue to coordinate services and discharge plan as appropriate.
--- NOTE | 2019-11-09 15:46 | CHAPLAIN ---
Srini was in bed when I visited. He had just met with the Hospitalist. Srini wasn't interested in further conversation, but was pleasant.
[2019-11-09 16:19] LABS: Albumin, Urine % 17.8 % ((See Note)); Globulins, Urine % 82.2 %; Immunotyping, Urine (See Note); Total Protein Urine 13 mg/dL (See Note); Total Protein, Urine 24hrs 228 mg/24hrs (<150); Urine Volume 1750 mL
[2019-11-09] MEDS: Lidocaine 5% Patch 2 PATCH TP (17:24)
[2019-11-09] MEDS: Polyethylene Glycol 3350 17 GM PACKET PO (19:48)
[2019-11-09] MEDS: Simvastatin 20 MG TAB PO (19:51)
[2019-11-09] MEDS: rOPINIRole 0.5 MG TAB PO (21:57)
[2019-11-09] MEDS: Insulin Glargine 300 UNITS/3 ML PEN 10 UNITS SC (21:59)
[2019-11-10] VITALS (8 sets, daily range): BP systolic 98–109; BP diastolic 64–79; PULSE 59–73; RESP 18–20; TEMP 35.7–36.6; O2SAT 92–99
[2019-11-10] MEDS: Nystatin 500000 UNITS/5 ML SUSP 5ML CUP PO ×4 (06:12→21:31)
[2019-11-10] MEDS: LIDOCAINE Patch Removal TP (06:13)
[2019-11-10] MEDS: Normal Saline Flush 10 ML SYR IVP (06:14)
[2019-11-10 06:30] LABS: Abs Immature Grans 0.09 k/cumm (0.0-0.09); Absolute Basophil Count 0.03 k/cumm (0.0-0.2); Absolute Eosinophil Count 0.45 k/cumm (0.0-0.7); Absolute Monocyte Count 1.47 k/cumm (0.11-0.7); Basophils % 0.2; Eosinophils % 3.3; HCT 44.4 % (40.0-50.0); HGB 14.9 g/dL (13.5-17.5); Immature Grans % 0.7 %; Lymphocytes % 9.4; Mean Corp. HGB Concentration 33.6 g/dL (32.0-36.0); Mean Corpuscular Hemoglobin 35.2 pg (27.0-33.0); Mean Platelet Volume 11.3 fL (8.0-11.0); Monocytes % 10.7; Neutrophils % 75.7; Platelet Count 117 x1000/uL (130-400); RBC 4.23 m/cumm (4.50-6.00); RBC Distribution Width 14.4 % (11.8-14.1); White Blood Cell Count 13.78 k/cumm (4.4-10.8)
[2019-11-10 06:37] LABS: INR 1.5 (0.9-1.1); Prothrombin Time 15.4 sec (9.3-11.0)
[2019-11-10 06:38] LABS: Absolute Neutrophil Count 10.43 k/cumm (1.2-6.7); Anion Gap 4.2 mmol/L (3-11); BUN 29 mg/dL (7-18); CO2 31.8 mmol/L (21.0-32.0); CREATININE 1.17 mg/dL (0.70-1.30); Calcium 8.7 mg/dL (8.5-10.1); Chloride 96 mmol/L (98-107); Glucose 124 mg/dL (74-106); Potassium 3.9 mmol/L (3.5-5.1); Sodium 132 mmol/L (136-145)
[2019-11-10] MEDS: Ipratropium/Albuterol 4 GM 120 PUFF INH IH ×4 (07:33→19:49)
[2019-11-10] MEDS: Polyethylene Glycol 3350 17 GM PACKET PO ×2 (08:43→19:48)
[2019-11-10] MEDS: Digoxin 0.125 MG TAB PO (08:44)
[2019-11-10] MEDS: Allopurinol 300 MG TAB PO (08:44)
[2019-11-10] MEDS: DULoxetine 30 MG CAP PO (08:44)
[2019-11-10] MEDS: predniSONE 5 MG TAB PO (08:44)
[2019-11-10] MEDS: guaiFENesin 600 MG TABCR PO (08:47)
[2019-11-10] MEDS: Normal Saline Flush 10 ML SYR 20 ML IVP ×2 (08:47→19:48)
[2019-11-10] MEDS: Pantoprazole 40 MG TABCR PO (08:47)
[2019-11-10] MEDS: MEROPENEM 1 GM in Normal Saline 100 ML IVPB ×2 (08:48→19:48)
--- NOTE | 2019-11-10 10:34 | PGE_ITS ---
Date of Service Date of service: 11/10/19 Time of Service: 10:39 Assessment and Plan Assessment and plan (1) Acute on chronic combined systolic (congestive) and diastolic (congestive) heart failure: Status: Acute Assessment and plan: Wt slowly increasing. No increased SOA/dyspnea. No pedal edema. Hold torsemide d/t soft BP. (2) Dilated idiopathic cardiomyopathy: Status: Chronic Assessment and plan: EF of less than 20%. His goal is to eventually go home. No adequate home support that would be adequate for his current state of health. Daughter lives there but works and will be on vacation later this week for 7 days. SNF is indicated. He appears to be less resistant to this today. (3) Pneumonia: Status: Acute Assessment and plan: On Meropenem and Vanc. Stop Vanc. WBC 13.64 > 14.63 > 14.05 > 13.52 > 13.78 CBC in AM (4) REI (acute kidney injury): Status: Acute Assessment and plan: Cr improved to 1.9 > 1.55> 1.17 Cont to hold diuretics. Repeat lab in AM (5) AF (paroxysmal atrial fibrillation): Status: Chronic Assessment and plan: Rate controlled. Cont metoprolol (6) Anticoagulated on warfarin: Status: Acute Assessment and plan: Warfarin was on hold d/t elevated INR. Now INR down to 1.5 Warfarin 5 mg today, then resume 1 mg on MWFSat. Monitor daily (7) Depression: Status: Chronic Assessment and plan: Cymbalta increased to 30mg daily on 11/05. Affect, overall, appears to have improved. Subjective Subjective Patient reports: no new complaints and feels better Interval history since last seen: Working with PT Wishes to d/c to home when appropriate with HH. Exam Const General: cooperative and no acute distress Nutritional Appearance: average body habitus Orientation: alert and oriented x3 Resp Effort & Inspection: normal respiratory effort Auscultation: clear to auscultation bilaterally and diminished lung sounds Cardio Jugular venous pressure: no JVD Rhythm: other (Irreg rhythm) GI Palpation: soft Auscultation: normal bowel sounds Extrem General: normal exam except as noted and pedal edema (trace bilateral) Psych Appearance: grossly normal Speech and Movement: speech and movement normal Mood: congruent mood Affect: normal affect Attitude: cooperative Thought Process: normal Objective Objective Clinical Data: Abnormal lab results 11/04/19 11/05/19 11/10/19 Range/Units 04:58 10:30 06:00 WBC (4.4-10.8) k/cumm RBC (4.50-6.00) m/cumm MCV (80-95) fL MCH (27.0-33.0) pg RDW (11.8-14.1) % Plt Count (130-400) x1000/uL MPV (8.0-11.0) fL Absolute Neutrophils (1.2-6.7) k/cumm Absolute Monocytes (0.11-0.7) k/cumm PT 15.4 H (9.3-11.0) sec INR 1.5 H (0.9-1.1) Sodium (136-145) mmol/L Chloride (98-107) mmol/L BUN (7-18) mg/dL Glucose (74-106) mg/dL Total Protein (PEP) 8.5 H (6.3-8.2) g/dL Albumin % (PEP) 46.9 L (55.8-66.1) % Xwvcz-6-Zwbbgruhd (%) 13.5 H (7.1-11.8) % Beta Globulins (%) 21.9 H (8.4-13.1) % M-Bryan % 4.5 H (None Seen) % Ur Protein 24 Hr Calc 228 H (<150) mg/24hrs 11/10/19 11/10/19 Range/Units 06:00 06:00 WBC 13.78 H (4.4-10.8) k/cumm RBC 4.23 L (4.50-6.00) m/cumm MCV 105.0 H (80-95) fL MCH 35.2 H (27.0-33.0) pg RDW 14.4 H (11.8-14.1) % Plt Count 117 L (130-400) x1000/uL MPV 11.3 H (8.0-11.0) fL Absolute Neutrophils 10.43 H (1.2-6.7) k/cumm Absolute Monocytes 1.47 H (0.11-0.7) k/cumm PT (9.3-11.0) sec INR (0.9-1.1) Sodium 132 L (136-145) mmol/L Chloride 96 L (98-107) mmol/L BUN 29 H D (7-18) mg/dL Glucose 124 H (74-106) mg/dL Total Protein (PEP) (6.3-8.2) g/dL Albumin % (PEP) (55.8-66.1) % Aczmc-0-Obxpcltnm (%) (7.1-11.8) % Beta Globulins (%) (8.4-13.1) % M-Bryan % (None Seen) % Ur Protein 24 Hr Calc (<150) mg/24hrs Vital Signs Temperature 35.7 C L 11/10/19 07:38 Temperature Source Temporal Artery Scan 11/10/19 07:38 Pulse 68 11/10/19 09:10 Pulse Rhythm Regular 11/10/19 09:05 Respiratory Rate 18 11/10/19 07:38 Respiratory Effort 11/10/19 09:05 Respiratory Depth Normal 11/10/19 09:05 Respiratory Pattern Normal 11/10/19 09:05 Blood Pressure 98/70 L 11/10/19 09:10 Blood Pressure Position Supine 10/27/19 23:23 Pulse Oximetry 97 11/10/19 07:38 Oxygen Delivery Method Room Air 11/10/19 07:38 Oxygen Flow Rate 0 11/10/19 07:38 Pain Level 0 11/10/19 07:38 Comment 11/07/19 15:16 Intake & Output 11/09/19 11/09/19 11/10/19 11:59 23:59 11:59 Intake Total 673.5 / 1633.5 960 / 1633.5 680 / 680 Output Total 800 / 1225 425 / 1225 650 / 650 Balance -126.5 / 408.5 535 / 408.5 Weight 82 kg 82.3 kg Intake: IV 43.5 / 763.5 720 / 763.5 Oral 630 / 870 240 / 870 680 / 680 Output: Urine 800 / 1225 425 / 1225 650 / 650 Other: Urine Color Yellow Yellow Straw Urine Appearance Clear Clear Clear Urine Odor Normal Normal None Stool Size Small Voiding Methods Urinal Urinal Urinal Laboratory Results WBC 13.78 k/cumm (4.4-10.8) H 11/10/19 06:00 RBC 4.23 m/cumm (4.50-6.00) L 11/10/19 06:00 Hgb 14.9 g/dL (13.5-17.5) 11/10/19 06:00 Hct 44.4 % (40.0-50.0) 11/10/19 06:00 MCV 105.0 fL (80-95) H 11/10/19 06:00 MCH 35.2 pg (27.0-33.0) H 11/10/19 06:00 MCHC 33.6 g/dL (32.0-36.0) 11/10/19 06:00 RDW 14.4 % (11.8-14.1) H 11/10/19 06:00 Plt Count 117 x1000/uL (130-400) L 11/10/19 06:00 MPV 11.3 fL (8.0-11.0) H 11/10/19 06:00 Immature Gran % 0.7 % 11/10/19 06:00 Neutrophils % 75.7 11/10/19 06:00 Band Neutrophils % Cancelled 11/06/19 Unknown Lymphocytes % 9.4 11/10/19 06:00 Atypical Lymphs % Cancelled 11/06/19 Unknown Monocytes % 10.7 11/10/19 06:00 Eosinophils % 3.3 11/10/19 06:00 Basophils % 0.2 11/10/19 06:00 Metamyelocytes % Cancelled 11/06/19 Unknown Myelocytes % Cancelled 11/06/19 Unknown Promyelocytes % Cancelled 11/06/19 Unknown Absolute Neutrophils 10.43 k/cumm (1.2-6.7) H 11/10/19 06:00 Absolute Lymphocytes 1.30 k/cumm (1.2-3.4) 11/10/19 06:00 Absolute Monocytes 1.47 k/cumm (0.11-0.7) H 11/10/19 06:00 Absolute Eosinophils 0.45 k/cumm (0.0-0.7) 11/10/19 06:00 Absolute Basophils 0.03 k/cumm (0.0-0.2) 11/10/19 06:00 Nucleated RBCs Cancelled 11/06/19 Unknown Differential Comment Manual differential 11/08/19 06:47 Other Cell Type Cancelled 11/06/19 Unknown RBC Morphology Normal 11/08/19 06:47 Polychromasia Cancelled 11/06/19 Unknown Hypochromasia Cancelled 11/06/19 Unknown Poikilocytosis Cancelled 11/06/19 Unknown Basophilic Stippling Cancelled 11/06/19 Unknown Anisocytosis Cancelled 11/06/19 Unknown Microcytosis Cancelled 11/06/19 Unknown Macrocytosis 1+ 11/07/19 06:45 Spherocytes Cancelled 11/06/19 Unknown Target Cells Cancelled 11/06/19 Unknown Tear Drop Cells Cancelled 11/06/19 Unknown Ovalocytes Cancelled 11/06/19 Unknown Stomatocytes Cancelled 11/06/19 Unknown [place] Bodies Cancelled 11/06/19 Unknown [place] Cells Cancelled 11/06/19 Unknown Acanthocytes (Spur) Cancelled 11/06/19 Unknown Schistocytes Cancelled 11/06/19 Unknown PT 15.4 sec (9.3-11.0) H 11/10/19 06:00 INR 1.5 (0.9-1.1) H 11/10/19 06:00 ABG Sample Site Left radial 11/02/19 09:38 ABG pH 7.50 (7.35-7.45) H 11/02/19 09:38 ABG pCO2 40 mmHg (34-47) 11/02/19 09:38 ABG pO2 69 mmHg (83-108) L 11/02/19 09:38 ABG HCO3 31 mmol/L (22-28) H 11/02/19 09:38 ABG Total CO2 26 mmol/L (22-29) 11/02/19 09:38 ABG O2 Saturation 94 % (94-98) 11/02/19 09:38 ABG Base Excess 8.1 mmol/L (-3-3) H 11/02/19 09:38 FiO2 21 % 11/02/19 09:38 Sodium 132 mmol/L (136-145) L 11/10/19 06:00 Potassium 3.9 mmol/L (3.5-5.1) 11/10/19 06:00 Chloride 96 mmol/L (98-107) L 11/10/19 06:00 Carbon Dioxide 31.8 mmol/L (21.0-32.0) 11/10/19 06:00 Anion Gap 4.2 mmol/L (3-11) 11/10/19 06:00 BUN 29 mg/dL (7-18) H D 11/10/19 06:00 Creatinine 1.17 mg/dL (0.70-1.30) 11/10/19 06:00 Estimated GFR/1.73 m2 >= 60.00 (mL/min/1.73m2) 11/10/19 06:00 Glucose 124 mg/dL (74-106) H 11/10/19 06:00 Calcium 8.7 mg/dL (8.5-10.1) 11/10/19 06:00 Magnesium 2.4 mg/dL (1.8-2.4) 11/07/19 06:45 Troponin I 0.09 ng/mL (<0.06) H* 10/30/19 06:25 C-Reactive Protein 1.17 mg/dL (0.0-0.3) H 11/06/19 11:40 NT-Pro-B Natriuret Pep 6704 pg/mL (<300) H 10/31/19 06:36 Total Protein (PEP) 8.5 g/dL (6.3-8.2) H 11/05/19 10:30 Albumin % (PEP) 46.9 % (55.8-66.1) L 11/05/19 10:30 Xwcga-8-Wybbeztoj (%) 4.6 % (2.9-4.9) 11/05/19 10:30 Prvta-2-Hsdgosing (%) 13.5 % (7.1-11.8) H 11/05/19 10:30 Beta Globulins (%) 21.9 % (8.4-13.1) H 11/05/19 10:30 Gamma Globulins (%) 13.1 % (11.1-18.8) 11/05/19 10:30 M-Bryan % 4.5 % (None Seen) H 11/05/19 10:30 PEP Comment (see note) 11/05/19 10:30 Procalcitonin 0.2 ng/mL 11/07/19 06:45 TSH 1.16 uIU/mL (0.36-3.74) 10/28/19 06:40 Urine Color Yellow (Yellow) 11/02/19 11:30 Urine Clarity Clear (Clear) 11/02/19 11:30 Urine pH 7.5 (5-8) 11/02/19 11:30 Ur Specific [place] 1.020 (1.005-1.025) 11/02/19 11:30 Urine Protein Negative mg/dL (Negative) 11/02/19 11:30 Urine Ketones Negative mg/dL (Negative) 11/02/19 11:30 Urine Blood Trace-intact (Negative) H 11/02/19 11:30 Urine Nitrite Negative (Negative) 11/02/19 11:30 Urine Bilirubin Negative (Negative) 11/02/19 11:30 Urine Urobilinogen 0.2 EU/dL (Up TO 0.2) 11/02/19 11:30 Ur Leukocyte Esterase Negative (Negative) 11/02/19 11:30 Urine RBC 3-5 HPF (0-2) H 11/02/19 11:30 Urine WBC 0-2 HPF (0-5) 11/02/19 11:30 Ur Epithelial Cells Rare HPF (Negative) 11/02/19 11:30 Urine Crystals Negative HPF (Negative) 11/02/19 11:30 Urine Bacteria Rare HPF (Negative) 11/02/19 11:30 Urine Casts 3-5 hyaline LPF (Negative) 11/02/19 11:30 Urine Mucus Negative (Negative) 11/02/19 11:30 Urine Other Negative (Negative) 11/01/19 11:30 Ur Culture Indicated? No 11/02/19 11:30 Ur Random Albumin 17.8 % ((See Note)) 11/04/19 04:58 U Random Total Protein 13 mg/dL (See Note) 11/04/19 04:58 U Collection Duration 24.0 Hours 11/04/19 04:58 Urine Total Volume 1750 mL 11/04/19 04:58 Urine Glucose Negative mg/dL (Negative) 11/02/19 11:30 Ur Protein 24 Hr Calc 228 mg/24hrs (<150) H 11/04/19 04:58 Urine Globulin 82.2 % (N/A) 11/04/19 04:58 Urine Random PEP Note See comment 11/04/19 04:58 Vancomycin Trough 18.7 ug/mL (10.0-20.0) 11/09/19 10:07 Digoxin 1.26 ng/mL (0.90-2.00) 11/06/19 11:40 Urine Immunofixation (see note) 11/04/19 04:58 COVID-19 PCR Negative (Negative) 10/28/19 02:40 Nasopharyn COVID-19 PCR Not Applicable 10/28/19 02:40 Urine Legionella Ag Negative (Negative) 11/07/19 04:05 M. pneumoniae Source Sputum 10/29/19 05:40 M. pneumoniae (PCR) Negative 10/29/19 05:40 Ur Strep pneumoniae Ag Negative (Negative) 10/29/19 14:25 Ref Test Perform Site [facility] 10/28/19 02:40
[2019-11-10] MEDS: Insulin Aspart 300 UNITS/3 ML PEN SC ×3 (12:21→21:31)
--- NOTE | 2019-11-10 12:47 | PTTR_ITS ---
Date of service: 11/10/19 Time of Service: 12:47 PT Notes Visit Reasons: RLL PNA,ACUTE EXACERBATION OF CHRONIC COMBINED CHF Inpatient Physical Therapy Treatment Note [facility] Date: 11/10/19 PRECAUTIONS: Fall, activity as tolerated SUBJECTIVE: Irineo reports that he is feeling much better today and is agreeable to participating in PT. OBJECTIVE: PAIN: No complaints of pain BED MOBILITY/TRANSFERS Supine-sit: I with HOB flat Sit-supine: I with HOB flat Sit-stand: S Stand-sit: S GAIT Assistive Device: FWW Weight bearing: Full Assist: SBA Distance: 150' x2 in a.m., 300' in p.m. Deviation: Cueing for increased step length and yolanda, seated rest x1 (in a.m.), standing rest x1 (in p.m.) STAIRS: Up/down 3?4 and 2?6 using B rails and a step to pattern with supervision ASSESSMENT: Patient tolerated session well with minimal complaints. He was able to tolerate a progression in gait distance with FWW support and SBA. Patient requires cueing for increased step length and yolanda. Patient would benefit from continued gait training for improved gait mechanics as well as gobal stre ngthening for improved mobility. PLAN: Continue with PTs POC TREATMENT CODE/TIME: Session 1: 20 minutes; [id number] Session 2: 15 minutes; [id number]
--- NOTE | 2019-11-10 14:50 | PDOC.CMPRO ---
- If Service Date Differs Date of service: 11/10/19 Time of Service: 14:50 Care Management Progress Note S/O: Irineo was lying in bed when CM met with him. He stated that he is feeling much better today. CM had a long conversation with Irineo regarding his disposition. Per MD, he may be ready soon for discharge, medically. Once he is medically cleared, he will still need continued PT to gain strength prior to returning home. GUERDA discussed the options with Irineo regarding SNF vs SWB at [facility]. At this time, there is no SWB availability. CM faxed a referral to the [facility] for consideration, at Irineo's request. He stated that he would prefer to stay at [facility], but he understands that he needs to be stronger prior to returning home. CM talked to Juju to update her on Irineo agreeing to consider a SNF for short term rehab. She reported that his [facility] N[facility] was approved. Irineo will still likely need to go to a SNF for short term rehab, as Juju will be on vacation all next week. CM will continue to follow. A: Srini is a 79 year old male admitted to [facility] on 10/28/19 for CHF exacerbation. P: Srini will be discharged home vs SNF for short term rehab his daughter would like him to consider the [facility]. CM will continue to coordinate services and discharge plan as appropriate.
[2019-11-10] MEDS: Lidocaine 5% Patch 2 PATCH TP (17:59)
[2019-11-10] MEDS: Simvastatin 20 MG TAB PO (19:46)
[2019-11-10] MEDS: Warfarin 5 MG TAB PO (19:46)
[2019-11-10] MEDS: Metoprolol 25 MG TAB 37.5 MG PO (19:46)
[2019-11-10] MEDS: rOPINIRole 0.5 MG TAB PO (21:31)
[2019-11-10] MEDS: Insulin Glargine 300 UNITS/3 ML PEN 10 UNITS SC (21:32)
[2019-11-11] VITALS (8 sets, daily range): BP systolic 105–116; BP diastolic 70–79; PULSE 67–73; RESP 16–20; TEMP 36–37; O2SAT 95–98
[2019-11-11] MEDS: Nystatin 500000 UNITS/5 ML SUSP 5ML CUP PO ×4 (05:50→22:13)
[2019-11-11 07:15] LABS: INR 1.9 (0.9-1.1); Prothrombin Time 18.8 sec (9.3-11.0)
[2019-11-11] MEDS: Ipratropium/Albuterol 4 GM 120 PUFF INH IH ×4 (07:17→20:03)
[2019-11-11] MEDS: DULoxetine 30 MG CAP PO (08:11)
[2019-11-11] MEDS: Digoxin 0.125 MG TAB PO (08:11)
[2019-11-11] MEDS: Milk of Magnesia 30 ML CUP PO (08:11)
[2019-11-11] MEDS: Polyethylene Glycol 3350 17 GM PACKET PO ×2 (08:11→20:02)
[2019-11-11] MEDS: predniSONE 5 MG TAB PO (08:12)
[2019-11-11] MEDS: Allopurinol 300 MG TAB PO (08:12)
[2019-11-11] MEDS: Metoprolol 25 MG TAB 37.5 MG PO ×2 (08:12→20:02)
[2019-11-11] MEDS: Docusate Sodium 100 MG CAP PO (08:14)
[2019-11-11] MEDS: Pantoprazole 40 MG TABCR PO (08:14)
[2019-11-11] MEDS: Normal Saline Flush 10 ML SYR 20 ML IVP ×2 (08:15→20:03)
[2019-11-11] MEDS: MEROPENEM 1 GM in Normal Saline 100 ML IVPB ×2 (08:16→20:03)
[2019-11-11] MEDS: Normal Saline 500 ML 30 ML IV (08:17)
--- NOTE | 2019-11-11 08:45 | PT.INNT ---
Date of service: 11/11/19 Time of Service: 08:45 PT Notes Visit Reasons: RLL PNA,ACUTE EXACERBATION OF CHRONIC COMBINED CHF Per conversation with Nurse Chema before patient visit, Aleksander has been increasingly agitated and has required closed monitoring by nursing staff for safety. Nurse advised holding off on seeing patient today due to behavioral disturbance. Will plan on seeing patient tomorrow and provide skilled services as planned.
--- NOTE | 2019-11-11 08:58 | INPN_ITS ---
Date of service: 11/11/19 Time of Service: 08:58 PT Notes Visit Reasons: RLL PNA,ACUTE EXACERBATION OF CHRONIC COMBINED CHF Inpatient Physical Therapy Progress Note Date: 11/11/2019 Dates of Service: 10/29/2019 through 11/11/2019 Referring Doctor: Vanna Gar MD PT Orders: PT CONSULT: Limited ability Precautions: Fall. Standard. Activity as tolerated. Patient Profile/Admitting Diagnosis: Srini is a 79-year-old male who presented to the ED on a 10/27/2019 with a chief complaint of increasing shortness of breath that started 2 days prior to admission. Patient is diagnosed with acute on chronic combined systolic and diastolic CHF with EF of 20-25%, right lower lobe pneumonia, elevated troponin, acute kidney injury, asymmetric edema to BLE, COPD and IDDM, therapeutic INR and ambulatory dysfunction with referral to services to address functional mobility decline. PMHX: Medical History Asthma (Chronic) Atrial fibrillation (Chronic) Bronchiectasis (Acute 04/13/16) Chronic combined systolic and diastolic CHF (congestive heart failure) (Acute) Chronic fatigue (Acute) Dilated idiopathic cardiomyopathy (Chronic) did not tolerate entresto. 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 Cataracts bilaterally b. Inguinal hernia LEFT HEART CARDIAC CATH Pacemaker (Acute) Repair of inguinal hernia left Subjective: Srini reports how pooped out he is from yesterday's activity. He is agreeable to a short session today and hopes to rest as soon as he is done. came in for his regular patient visit and discussed about changing inot oral antibiotics and sending patient out for a short rehab prior to going home as daughter Juju will be off on vacation and patient is not able to manage alone at this time. Objective: General Observation: Obese. IV in the L UE. Mental Status: Alert and oriented x 4 Pain: None reported ROM: Right Upper Extremity: Shoulder Flexion WFL. Shoulder abduction WFL. Elbow flexion WFL. Wrist flexion WFL. Opening and closing of hand WFL. Left Upper Extremity: Shoulder Flexion WFL. Shoulder abduction WFL. Elbow flexion WFL. Wrist flexion WFL. Opening and closing of hand WFL. Right Lower Extremity: Hip flexion WFL. Hip abduction WFL. Knee flexion WFL. Ankle dorsiflexion WFL. Ankle plantarflexion WFL. Left Lower Extremity: Hip flexion WFL. Hip abduction WFL. Knee flexion WFL. Ankle dorsiflexion WFL. Ankle plantarflexion WFL. Strength: Right Upper Extremity: Shoulder flexors 4/5. Shoulder abductors 4/5. Elbow flexors 4/5. Elbow extensors 4/5. Elevator Repairer Apprentice strong. Left Upper Extremity: Shoulder flexors 4/5. Shoulder abductors 4/5. Elbow flexors 4/5. Elbow extensors 4/5. Elevator Repairer Apprentice strong. Right Lower Extremity: Hip flexors 4/-5. Hip abductors 4-/5. Knee flexors 4-/5. Knee extensors 4-/5. Ankle dorsiflexors 4-/5. Ankle plantarflexors 4-/5. Left Lower Extremity:Hip flexors 4-/5. Hip abductors 4-/5. Knee flexors 4-/5. Knee extensors 4-/5. Ankle dorsiflexors 4-/5. Ankle plantarflexors 4-/5. Sensation: Intact as to pain and pressure on bilateral lower extremities. Bed Mobility/Transfers: Sit to supine independent Sit to stand supervision with FWW Stand to sit supervision with FWW Bed to chair supervision with FWW Chair to bed supervision with FWW Gait: 150' + 150' using FWW with FWB with SBA and minimal SOB which resolved with rest. Decreased yolanda. Decreased step length. THERA EX: LAQs x 10, seated hip flexion x 10, ankle pumps ax 10. Balance: Static Sitting: Normal Dynamic Sitting: Normal Static Standing: Fair Dynamic Standing: Fair Assessment: Patient continues to demonstrate functional mobility decline requiring the use of walker for all mobility ADL performance, strength impairments, balance limitations, and endurance deficits resulting from admitting diagnoses. His yolanda has been significantly reduced and his step height and length decreased. He will continue to benfit from skilled PT services in order regain prior level of function. Patient continues to present with clinical signs and symptoms consistent with current/admitting diagnoses that have resulted to mobility limitations, gait instability, generalized weakness, and impairment of motor control as demonstrated by the following impairment level findings: 1. Decreased strength to B UE/LE major muscle groups 2. Impaired standing balance 3. Impaired activity tolerance Impairments are continuing to contribute to the following functional limitations: 1. Increased dependence with transfers 2. Inability to safely ambulate without assistive device and physical assistance 3. Increase completion time for mobility ADL performance 4. Increased fall risk 5. Inability to negotiate steps alone safely Patient is assessed as a 63599 moderate complexity based on the following: History: 79-year-old male with impairment level findings, functional limitations, and past medical history as indicated above Examination: Demonstrable impairment in strength, balance, and mobility level with underlying impairments and functional limitations as documented above Presentation:Evolving Decision Makin moderate complexity Goals: Goals X1 week 1. Supine-Sit independent MET 2. Sit-Supine independent MET 3. Sit-Stand independent NOT MET 4. Stand-Sit independent NOT MET 5. Bed-Chair independent NOT MET 6. Chair-Bed independent NOT MET 7. Independent gait on level surface with use of least restrictive device for at least 300 feet without report of pain nor dyspnea NOT MET 8. Independent stair negotiation while holding onto bilateral rails for at least 10 steps without report of pain nor dyspnea NOT MET 9. Independent with home exercise program NOT MET 10. Good static and dynamic standing balance/tolerance NOT MET Plan of Care/Treatment Plan: 1-2x/day, 7 days/week x 1 week. Plan of care has been reviewed with the ENROBING MACHINE OPERATOR providing the service under Physical Therapy direction. Initiate Physical Therapy intervention for strengthening, bed mobility, transfers, gait, stairs, balance training, use of assistive device. DISCHARGE RECOMMENDATIONS: Patient will benefit [facility] for continued skilled physical therapy services in order to progress mobility level, strength, and balance in preparation for a safe discharge to home. TREATMENT CODE/TIME: 88467 x 15 minutes, 56145 x 13 minutes beginning at 8:58 AM. Thank you very much for this referral. Beverley Cisneros PT, DPT, CLT [facility] [place], [place]
[2019-11-11] MEDS: Bumetanide 1 MG TAB PO ×2 (09:39→15:52)
[2019-11-11] MEDS: Normal Saline Flush 10 ML SYR IVP (09:40)
--- NOTE | 2019-11-11 10:29 | PGE_ITS ---
Date of Service Date of service: 11/11/19 Time of Service: 10:30 Assessment and Plan Assessment and plan (1) Acute on chronic combined systolic (congestive) and diastolic (congestive) heart failure: Status: Acute Assessment and plan: Wt now up nearly a kg from yesterday No increased SOA/dyspnea. No pedal edema. Bumex has been on hold; will restart. (2) Dilated idiopathic cardiomyopathy: Status: Chronic Assessment and plan: EF of less than 20%. His goal is to eventually go home. No adequate home support that would be adequate for his current state of health. Daughter lives there but works and will be on vacation later this week for 7 days. SNF is indicated. He appears to be less resistant to this today. (3) Pneumonia: Status: Acute Assessment and plan: On Meropenem and Vanc. Stop Vanc. WBC 13.64 > 14.63 > 14.05 > 13.52 > 13.78 Stop meropenem after dose tomorrow, 11/11. (4) REI (acute kidney injury): Status: Acute Assessment and plan: Cr improved to 1.9 > 1.55> 1.17 Cont to hold diuretics. Repeat lab in AM (5) AF (paroxysmal atrial fibrillation): Status: Chronic Assessment and plan: Rate controlled. Cont metoprolol (6) Anticoagulated on warfarin: Status: Acute Assessment and plan: Warfarin was on hold d/t elevated INR. Now INR down to 1.5> 1.5> 1.9. Warfarin 5 mg given 11/08 and 11/09. Will resume his home regimen of 1 mg on MWFSat. Monitor daily (7) Depression: Status: Chronic Assessment and plan: Cymbalta increased to 30mg daily on 11/05. Affect, overall, appears to have improved. Subjective Subjective Patient reports: denies voiding w/o difficulty, diarrhea and nausea Interval history since last seen: Feels he over did it yesterday and is tired. No SOA, F/C, cough. Exam Const General: cooperative and no acute distress Nutritional Appearance: average body habitus Orientation: alert and oriented x3 Resp Effort & Inspection: normal respiratory effort Auscultation: clear to auscultation bilaterally and diminished lung sounds Cardio Jugular venous pressure: no JVD Rhythm: other (Irreg rhythm) GI Palpation: soft Auscultation: normal bowel sounds Extrem General: normal exam except as noted and pedal edema (trace bilateral) Psych Appearance: grossly normal Speech and Movement: speech and movement normal Mood: congruent mood Affect: normal affect Attitude: cooperative Thought Process: normal Objective Objective Clinical Data: Abnormal lab results 11/11/19 Range/Units 06:36 PT 18.8 H (9.3-11.0) sec INR 1.9 H (0.9-1.1) Vital Signs Temperature 37.0 C 11/11/19 07:22 Temperature Source Temporal Artery Scan 11/11/19 07:22 Pulse 73 11/11/19 08:11 Pulse Rhythm Regular 11/11/19 07:32 Respiratory Rate 17 11/11/19 07:22 Respiratory Effort 11/11/19 07:32 Respiratory Depth Normal 11/11/19 07:32 Respiratory Pattern Normal 11/11/19 07:32 Blood Pressure 110/74 11/11/19 07:22 Blood Pressure Position Supine 10/27/19 23:23 Pulse Oximetry 98 11/11/19 07:22 Oxygen Delivery Method Room Air 11/11/19 07:22 Oxygen Flow Rate 0 11/11/19 07:22 Pain Level 0 11/11/19 08:12 Comment 11/11/19 08:12 Intake & Output 11/10/19 11/10/19 11/11/19 11:59 23:59 11:59 Intake Total 780 / 1357 577 / 1357 367.5 / 367.5 Output Total 650 / 1300 650 / 1300 300 / 300 Balance 130 / 57 -73 / 57 67.5 / 67.5 Weight 82.3 kg 83.2 kg Intake: IV 100 / 200 100 / 200 127.5 / 127.5 Oral 680 / 1157 477 / 1157 240 / 240 Output: Urine 650 / 1300 650 / 1300 300 / 300 Other: Urine Color Straw Yellow Pale Yellow Urine Appearance Clear Clear Clear Urine Odor None Voiding Methods Urinal Urinal Urinal Laboratory Results WBC 13.78 k/cumm (4.4-10.8) H 11/10/19 06:00 RBC 4.23 m/cumm (4.50-6.00) L 11/10/19 06:00 Hgb 14.9 g/dL (13.5-17.5) 11/10/19 06:00 Hct 44.4 % (40.0-50.0) 11/10/19 06:00 MCV 105.0 fL (80-95) H 11/10/19 06:00 MCH 35.2 pg (27.0-33.0) H 11/10/19 06:00 MCHC 33.6 g/dL (32.0-36.0) 11/10/19 06:00 RDW 14.4 % (11.8-14.1) H 11/10/19 06:00 Plt Count 117 x1000/uL (130-400) L 11/10/19 06:00 MPV 11.3 fL (8.0-11.0) H 11/10/19 06:00 Immature Gran % 0.7 % 11/10/19 06:00 Neutrophils % 75.7 11/10/19 06:00 Band Neutrophils % Cancelled 11/06/19 Unknown Lymphocytes % 9.4 11/10/19 06:00 Atypical Lymphs % Cancelled 11/06/19 Unknown Monocytes % 10.7 11/10/19 06:00 Eosinophils % 3.3 11/10/19 06:00 Basophils % 0.2 11/10/19 06:00 Metamyelocytes % Cancelled 11/06/19 Unknown Myelocytes % Cancelled 11/06/19 Unknown Promyelocytes % Cancelled 11/06/19 Unknown Absolute Neutrophils 10.43 k/cumm (1.2-6.7) H 11/10/19 06:00 Absolute Lymphocytes 1.30 k/cumm (1.2-3.4) 11/10/19 06:00 Absolute Monocytes 1.47 k/cumm (0.11-0.7) H 11/10/19 06:00 Absolute Eosinophils 0.45 k/cumm (0.0-0.7) 11/10/19 06:00 Absolute Basophils 0.03 k/cumm (0.0-0.2) 11/10/19 06:00 Nucleated RBCs Cancelled 11/06/19 Unknown Differential Comment Manual differential 11/08/19 06:47 Other Cell Type Cancelled 11/06/19 Unknown RBC Morphology Normal 11/08/19 06:47 Polychromasia Cancelled 11/06/19 Unknown Hypochromasia Cancelled 11/06/19 Unknown Poikilocytosis Cancelled 11/06/19 Unknown Basophilic Stippling Cancelled 11/06/19 Unknown Anisocytosis Cancelled 11/06/19 Unknown Microcytosis Cancelled 11/06/19 Unknown Macrocytosis 1+ 11/07/19 06:45 Spherocytes Cancelled 11/06/19 Unknown Target Cells Cancelled 11/06/19 Unknown Tear Drop Cells Cancelled 11/06/19 Unknown Ovalocytes Cancelled 11/06/19 Unknown Stomatocytes Cancelled 11/06/19 Unknown Savage-Herrin Bodies Cancelled 11/06/19 Unknown Danny Cells Cancelled 11/06/19 Unknown Acanthocytes (Spur) Cancelled 11/06/19 Unknown Schistocytes Cancelled 11/06/19 Unknown PT 18.8 sec (9.3-11.0) H 11/11/19 06:36 INR 1.9 (0.9-1.1) H 11/11/19 06:36 ABG Sample Site Left radial 11/02/19 09:38 ABG pH 7.50 (7.35-7.45) H 11/02/19 09:38 ABG pCO2 40 mmHg (34-47) 11/02/19 09:38 ABG pO2 69 mmHg (83-108) L 11/02/19 09:38 ABG HCO3 31 mmol/L (22-28) H 11/02/19 09:38 ABG Total CO2 26 mmol/L (22-29) 11/02/19 09:38 ABG O2 Saturation 94 % (94-98) 11/02/19 09:38 ABG Base Excess 8.1 mmol/L (-3-3) H 11/02/19 09:38 FiO2 21 % 11/02/19 09:38 Sodium 132 mmol/L (136-145) L 11/10/19 06:00 Potassium 3.9 mmol/L (3.5-5.1) 11/10/19 06:00 Chloride 96 mmol/L (98-107) L 11/10/19 06:00 Carbon Dioxide 31.8 mmol/L (21.0-32.0) 11/10/19 06:00 Anion Gap 4.2 mmol/L (3-11) 11/10/19 06:00 BUN 29 mg/dL (7-18) H D 11/10/19 06:00 Creatinine 1.17 mg/dL (0.70-1.30) 11/10/19 06:00 Estimated GFR/1.73 m2 >= 60.00 (mL/min/1.73m2) 11/10/19 06:00 Glucose 124 mg/dL (74-106) H 11/10/19 06:00 Calcium 8.7 mg/dL (8.5-10.1) 11/10/19 06:00 Magnesium 2.4 mg/dL (1.8-2.4) 11/07/19 06:45 Troponin I 0.09 ng/mL (<0.06) H* 10/30/19 06:25 C-Reactive Protein 1.17 mg/dL (0.0-0.3) H 11/06/19 11:40 NT-Pro-B Natriuret Pep 6704 pg/mL (<300) H 10/31/19 06:36 Total Protein (PEP) 8.5 g/dL (6.3-8.2) H 11/05/19 10:30 Albumin % (PEP) 46.9 % (55.8-66.1) L 11/05/19 10:30 Wajsu-5-Thgeuvaoz (%) 4.6 % (2.9-4.9) 11/05/19 10:30 Oiccx-8-Fuwwocvtc (%) 13.5 % (7.1-11.8) H 11/05/19 10:30 Beta Globulins (%) 21.9 % (8.4-13.1) H 11/05/19 10:30 Gamma Globulins (%) 13.1 % (11.1-18.8) 11/05/19 10:30 M-Bryan % 4.5 % (None Seen) H 11/05/19 10:30 PEP Comment (see note) 11/05/19 10:30 Procalcitonin 0.2 ng/mL 11/07/19 06:45 TSH 1.16 uIU/mL (0.36-3.74) 10/28/19 06:40 Urine Color Yellow (Yellow) 11/02/19 11:30 Urine Clarity Clear (Clear) 11/02/19 11:30 Urine pH 7.5 (5-8) 11/02/19 11:30 Ur Specific Bancroft 1.020 (1.005-1.025) 11/02/19 11:30 Urine Protein Negative mg/dL (Negative) 11/02/19 11:30 Urine Ketones Negative mg/dL (Negative) 11/02/19 11:30 Urine Blood Trace-intact (Negative) H 11/02/19 11:30 Urine Nitrite Negative (Negative) 11/02/19 11:30 Urine Bilirubin Negative (Negative) 11/02/19 11:30 Urine Urobilinogen 0.2 EU/dL (Up TO 0.2) 11/02/19 11:30 Ur Leukocyte Esterase Negative (Negative) 11/02/19 11:30 Urine RBC 3-5 HPF (0-2) H 11/02/19 11:30 Urine WBC 0-2 HPF (0-5) 11/02/19 11:30 Ur Epithelial Cells Rare HPF (Negative) 11/02/19 11:30 Urine Crystals Negative HPF (Negative) 11/02/19 11:30 Urine Bacteria Rare HPF (Negative) 11/02/19 11:30 Urine Casts 3-5 hyaline LPF (Negative) 11/02/19 11:30 Urine Mucus Negative (Negative) 11/02/19 11:30 Urine Other Negative (Negative) 11/01/19 11:30 Ur Culture Indicated? No 11/02/19 11:30 Ur Random Albumin 17.8 % ((See Note)) 11/04/19 04:58 U Random Total Protein 13 mg/dL (See Note) 11/04/19 04:58 U Collection Duration 24.0 Hours 11/04/19 04:58 Urine Total Volume 1750 mL 11/04/19 04:58 Urine Glucose Negative mg/dL (Negative) 11/02/19 11:30 Ur Protein 24 Hr Calc 228 mg/24hrs (<150) H 11/04/19 04:58 Urine Globulin 82.2 % (N/A) 11/04/19 04:58 Urine Random PEP Note See comment 11/04/19 04:58 Vancomycin Trough 18.7 ug/mL (10.0-20.0) 11/09/19 10:07 Digoxin 1.26 ng/mL (0.90-2.00) 11/06/19 11:40 Urine Immunofixation (see note) 11/04/19 04:58 COVID-19 PCR Negative (Negative) 10/28/19 02:40 Nasopharyn COVID-19 PCR Not Applicable 10/28/19 02:40 Urine Legionella Ag Negative (Negative) 11/07/19 04:05 M. pneumoniae Source Sputum 10/29/19 05:40 M. pneumoniae (PCR) Negative 10/29/19 05:40 Ur Strep pneumoniae Ag Negative (Negative) 10/29/19 14:25 Ref Test Perform Site [place] [facility] 10/28/19 02:40
[2019-11-11] MEDS: Insulin Aspart 300 UNITS/3 ML PEN SC ×3 (12:16→22:14)
--- NOTE | 2019-11-11 12:41 | CMPROGNOTE_ITS ---
- If Service Date Differs Date of service: 11/11/19 Time of Service: 12:41 Care Management Progress Note S/O: Irineo was resting in bed when CM met with him. CM discussed Irineo's plan with the MD, PT, and RN Coordinator. PT stated that he is doing much better working with them, and he may be able to be independent at home soon, if his motivation continues. PT recommended an OT consult to improve his independence at home, which CM expressed to . Per Juju, his half-way NED application has been approved. Currently, there is availability for Irineo to remain at [facility] while he rehabs with the goal to return home in one week. CM discussed this with Irineo, who was very pleased that he could remain at [facility]. Per report, he was able to walk around the halls with assistance. CM will go over the plan with Juju during her visit this afternoon. CM will continue to follow. A: Srini is a 79 year old male admitted to [facility] on 10/28/19 for CHF exacerbation. P: Srini will be discharged from this acute admission and will transition to [facility] for continued PT, OT and abx treatment. He will need short term rehab, possibly one week. When Juju returns from vacation Irineo will return home with RN, PT, OT, ASSET SPECIALIST. CM will continue to coordinate services and discharge plan as appropriate.
--- NOTE | 2019-11-11 14:28 | PT.INDS ---
Date of service: 11/11/19 Time of Service: 14:28 PT Notes Visit Reasons: RLL PNA,ACUTE EXACERBATION OF CHRONIC COMBINED CHF Inpatient Physical Therapy Discharge Summary Dates: 11/11/2019 Dates of Service: 10/29/2019 through 11/11/2019 Referring Doctor: Vanna Gar MD PT Orders: PT CONSULT: Limited ability Precautions: Fall. Standard. Activity as tolerated. Patient Profile/Admitting Diagnosis: Irineo is discharged from acute care level as of today with plan to re-evaluate [facility] 1 tomorrow, November 12, 2019. Srini is a 79-year-old male who presented to the ED on a 10/27/2019 with a chief complaint of increasing shortness of breath that started 2 days prior to admission. Patient is diagnosed with acute on chronic combined systolic and diastolic CHF with EF of 20-25%, right lower lobe pneumonia, elevated troponin, acute kidney injury, asymmetric edema to BLE, COPD and IDDM, therapeutic INR and ambulatory dysfunction with referral to services to address functional mobility decline. PMHX: Medical History Asthma (Chronic) Atrial fibrillation (Chronic) Bronchiectasis (Acute 04/13/16) Chronic combined systolic and diastolic CHF (congestive heart failure) (Acute) Chronic fatigue (Acute) Dilated idiopathic cardiomyopathy (Chronic) did not tolerate entresto. 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 Cataracts bilaterally b. Inguinal hernia LEFT HEART CARDIAC CATH Pacemaker (Acute) Repair of inguinal hernia left Subjective: Irineo continues to verbalize how tired he is. He is agreeable to goals written on the white board in his room. He does not want to go to a [facility] facility. He states that family members check in on him during the day while his daughter is at work. He blames being tired to how much he is shuffling and lags nbehind his walker. Objective: General Observation: Obese. IV in the L UE. Mental Status: Alert and oriented x 4 Pain: None reported ROM: Right Upper Extremity: Shoulder Flexion WFL. Shoulder abduction WFL. Elbow flexion WFL. Wrist flexion WFL. Opening and closing of hand WFL. Left Upper Extremity: Shoulder Flexion WFL. Shoulder abduction WFL. Elbow flexion WFL. Wrist flexion WFL. Opening and closing of hand WFL. Right Lower Extremity: Hip flexion WFL. Hip abduction WFL. Knee flexion WFL. Ankle dorsiflexion WFL. Ankle plantarflexion WFL. Left Lower Extremity: Hip flexion WFL. Hip abduction WFL. Knee flexion WFL. Ankle dorsiflexion WFL. Ankle plantarflexion WFL. Strength: Right Upper Extremity: Shoulder flexors 4/5. Shoulder abductors 4/5. Elbow flexors 4/5. Elbow extensors 4/5. Assisted Living [facility] strong. Left Upper Extremity: Shoulder flexors 4/5. Shoulder abductors 4/5. Elbow flexors 4/5. Elbow extensors 4/5. Assisted Living Associate strong. Right Lower Extremity: Hip flexors 4/-5. Hip abductors 4-/5. Knee flexors 4-/5. Knee extensors 4-/5. Ankle dorsiflexors 4-/5. Ankle plantarflexors 4-/5. Left Lower Extremity:Hip flexors 4-/5. Hip abductors 4-/5. Knee flexors 4-/5. Knee extensors 4-/5. Ankle dorsiflexors 4-/5. Ankle plantarflexors 4-/5. Sensation: Intact as to pain and pressure on bilateral lower extremities. Bed Mobility/Transfers: Sit to supine minimal assist Sit to stand SBA with FWW Stand to sit SBA with FWW Bed to chair SBA with FWW Chair to bed SBA with FWW Gait: 150' + 150' using FWW with FWB with SBA and minimal SOB which resolved with rest. Decreased yolanda. Decreased step length. Beginning shuffling gait pattern seen with patient tending to lag behind front-wheeled walker. Moderate verbal cueing needed for safety and correction. THERA EX: LAQs x 10, seated hip flexion x 10, ankle pumps ax 10. Balance: Static Sitting: Normal Dynamic Sitting: Normal Static Standing: Fair Dynamic Standing: Fair Assessment: Irineo is beginning to exhibit shuffling of gait pattern and tends to lag behind walker requiring verbal cueing for correction. Patient continues to demonstrate functional mobility decline requiring the use of walker for all mobility ADL performance, strength impairments, balance limitations, and endurance deficits resulting from admitting diagnoses. His yolanda has been significantly reduced and his step height and length decreased. He will continue to benfit from skilled PT services in order regain prior level of function. Patient continues to present with clinical signs and symptoms consistent with current/admitting diagnoses that have resulted to mobility limitations, gait instability, generalized weakness, and impairment of motor control as demonstrated by the following impairment level findings: 1. Decreased strength to B UE/LE major muscle groups 2. Impaired standing balance 3. Impaired activity tolerance Impairments are continuing to contribute to the following functional limitations: 1. Increased dependence with transfers 2. Inability to safely ambulate without assistive device and physical assistance 3. Increase completion time for mobility ADL performance 4. Increased fall risk 5. Inability to negotiate steps alone safely Patient is assessed as a 13554 moderate complexity based on the following: History: 79-year-old male with impairment level findings, functional limitations, and past medical history as indicated above Examination: Demonstrable impairment in strength, balance, and mobility level with underlying impairments and functional limitations as documented above Presentation:Evolving Decision Makin moderate complexity Goals: Goals X1 week 1. Supine-Sit independent NOT MET 2. Sit-Supine independent NOT MET 3. Sit-Stand independent NOT MET 4. Stand-Sit independent NOT MET 5. Bed-Chair independent NOT MET 6. Chair-Bed independent NOT MET 7. Independent gait on level surface with use of least restrictive device for at least 300 feet without report of pain nor dyspnea NOT MET 8. Independent stair negotiation while holding onto bilateral rails for at least 10 steps without report of pain nor dyspnea NOT MET 9. Independent with home exercise program NOT MET 10. Good static and dynamic standing balance/tolerance NOT MET DISCHARGE RECOMMENDATIONS: Continue with skilled PT services under SB[facility] as of tomorrow, November 12, 2019. Goals have been reviewed with patient and written on the white board in his room for maximum compliance. TREATMENT CODE/TIME: 67367 x 30 minutes, 98099 x 18 minutes beginning at 14:28 PM. Thank you very much for this referral. Beverley Cisneros PT, DPT, CLT [facility] [place], [place]
[2019-11-11] MEDS: Lidocaine 5% Patch 2 PATCH TP (17:46)
[2019-11-11] MEDS: Simvastatin 20 MG TAB PO (20:03)
[2019-11-11] MEDS: Warfarin 1 MG TAB PO (20:09)
[2019-11-11] MEDS: rOPINIRole 0.5 MG TAB PO (22:13)
[2019-11-11] MEDS: Insulin Glargine 300 UNITS/3 ML PEN 10 UNITS SC (22:13)
[2019-11-12 03:20] VITALS: BP 109/64; PULSE 63; RESP 17; TEMP 36.9; O2SAT 95
[2019-11-12] MEDS: Normal Saline Flush 10 ML SYR IVP ×2 (06:00→10:24)
[2019-11-12] MEDS: LIDOCAINE Patch Removal TP (06:03)
[2019-11-12] MEDS: Nystatin 500000 UNITS/5 ML SUSP 5ML CUP PO ×2 (06:03→10:23)
[2019-11-12 06:59] LABS: INR 2.1 (0.9-1.1); Prothrombin Time 20.5 sec (9.3-11.0)
[2019-11-12 07:03] LABS: Anion Gap 7.2 mmol/L (3-11); BUN 29 mg/dL (7-18); CO2 29.8 mmol/L (21.0-32.0); CREATININE 1.18 mg/dL (0.70-1.30); Calcium 9.1 mg/dL (8.5-10.1); Chloride 93 mmol/L (98-107); Estimated GFR 59.86 (mL/min/1.73m2); Glucose 116 mg/dL (74-106); Potassium 3.9 mmol/L (3.5-5.1); Sodium 130 mmol/L (136-145)
[2019-11-12 07:10] VITALS: BP 109/71; PULSE 69; RESP 16; TEMP 36.6; O2SAT 95
[2019-11-12] MEDS: Ipratropium/Albuterol 4 GM 120 PUFF INH IH ×2 (07:39→11:19)
[2019-11-12] MEDS: Polyethylene Glycol 3350 17 GM PACKET PO (07:46)
[2019-11-12 07:47] VITALS: PULSE 60
[2019-11-12] MEDS: Metoprolol 25 MG TAB 37.5 MG PO (07:47)
[2019-11-12] MEDS: Allopurinol 300 MG TAB PO (07:47)
[2019-11-12] MEDS: DULoxetine 30 MG CAP PO (07:47)
[2019-11-12] MEDS: Digoxin 0.125 MG TAB PO (07:47)
[2019-11-12] MEDS: predniSONE 5 MG TAB PO (07:47)
[2019-11-12] MEDS: Pantoprazole 40 MG TABCR PO (07:48)
[2019-11-12] MEDS: Bumetanide 1 MG TAB PO (07:48)
[2019-11-12] MEDS: Normal Saline Flush 10 ML SYR 20 ML IVP (07:50)
[2019-11-12] MEDS: MEROPENEM 1 GM in Normal Saline 100 ML IVPB (08:00)
--- NOTE | 2019-11-12 09:30 | DSE_ITS ---
Date of service: 11/12/19 Time of Service: 09:30 DS: Diagnosis Discharge Diagnosis (1) Acute on chronic combined systolic (congestive) and diastolic (congestive) heart failure: Status: Acute (2) Dilated idiopathic cardiomyopathy: Status: Chronic (3) Pneumonia: Status: Acute (4) REI (acute kidney injury): Status: Acute (5) AF (paroxysmal atrial fibrillation): Status: Chronic (6) Anticoagulated on warfarin: Status: Acute (7) Depression: Status: Chronic Discharge Plan Disposition Patient Disposition: [facility] LEVEL 1 Condition: Fair Discharge Details Chief Complaint: SOB Clinical Impression: Pneumonia, REI (acute kidney injury) Reason For Visit: RLL PNA,ACUTE EXACERBATION OF CHRONIC COMBINED CHF Admit Date/Time: 10/28/19 02:46 Admit Provider: Vanna Gar Attending Provider: Vanna Gar Primary Care Provider: Bennie Adams ED Provider: [facility] Course Hospital Course: This is a 79 yo male admitted on 10/28/2019 with c/o shortness of breath. He has a PMHx of NICMO/chronic combined sytolic and diastolic CHF with EF of 20-25% by echo (2017), s/p AICD, pulmonary HTN with RV dysfunction, PAF, Non-oxygen but steroid dependent COPD, asthma, bronchiectasis. He described SOA especialy with laying down; onset 2 nights prior to admission. Found to have a RLL infiltrate and pulmonary edema on imaging. proBNP elevated. He was initiated on ceftriaxone and doxycycline. His troponin was 0.09 but remained flat. EKG unremarkable / paced rhythm. Diureses was initiated. Combivent, prednisone and prn albuterol initiated. Continued coumadin for AC; adjusted as needed. His PNA did not respond to the initial antibiotics. He was changed to augmentin and again did not appear to improved. Coverated changed to cefepime and vancomycin and ultimately to vancomycin and Meropenem. [facility] His initial depressed mood improved and he slowly showed improvement in his motivation and willingness to work with PT. His ultimate goal is to return home. He finished the prolonged course of antibiotics. His SOA and NAGEL improved significantly and he is ambulating with standby assistance in the hallway. His REI resolved. He will d/c from acute status to swingbed status Home Meds and New Rx's Prescriptions: New acetaminophen [Tylenol] 325 mg Tablet 325 mg PO Q4H PRN PRNQty: 0 RF: 0 dextrose [Glutose-15] 40 % Gel 10 gm PO DIRECTED PRNQty: 0 RF: 0 prednisone 5 mg Tablet 5 mg PO DAILY Qty: 0 RF: 0 magnesium hydroxide [Milk of Magnesia] 400 mg/5 mL Suspension 30 ml PO DAILY PRN PRNQty: 0 RF: 0 diazepam 2 mg Tablet 2 mg PO HS PRN PRN (Reason: anxiety) Qty: 0 RF: 0 simvastatin 20 mg Tablet 20 mg PO QPM Qty: 0 RF: 0 ropinirole 0.5 mg Tablet 0.5 mg PO HS Qty: 0 RF: 0 lidocaine [Lidoderm] 5 % Adhesive Patch,Medicated 2 patch topical DAILY@1800 Qty: 0 RF: 0 docusate sodium [Colace] 100 mg Capsule 100 mg PO TID PRN PRNQty: 0 RF: 0 bumetanide 1 mg Tablet 1 mg PO DAILY@08,16 Qty: 0 RF: 0 alum-mag hydroxide-simeth [Mag-Al Plus] 200-200-20 mg/5 mL Suspension 30 ml PO Q2H PRN PRNQty: 0 RF: 0 albuterol sulfate [Ventolin HFA] 90 mcg/actuation Hfa Aerosol Inhaler 2 puff inhalation Q2H PRN PRNQty: 0 RF: 0 dextrose 50 % in water (D50W) Syringe 50 gm IVP DIRECTED PRNQty: 0 RF: 0 sodium chloride 0.9 % (flush) [Monoject 0.9% Sodium Chloride] Syringe 20 ml IVP BID Qty: 0 RF: 0 insulin aspart U-100 [Novolog Flexpen U-100 Insulin] 100 unit/mL (3 mL) Insulin Pen 0 units subcut AC & HS Qty: 0 RF: 0 metoprolol tartrate 25 mg Tablet 37.5 mg PO BID Qty: 0 RF: 0 duloxetine [Cymbalta] 30 mg Capsule,Delayed Release(Dr/Ec) 30 mg PO DAILY Qty: 0 RF: 0 Sherice Protect Cream 1 applic topical PRN PRNQty: 0 RF: 0 Lantus Solostar U-100 Insulin 100 unit/mL (3 mL) Insulin Pen 10 units subcut HS Qty: 0 RF: 0 Combivent Respimat 20-100 mcg/actuation Mist 1 puff inhalation QID Qty: 0 RF: 0 Iv Access 1 ea IV DIRECTED Qty: 0 RF: 0 polyethylene glycol 3350 17 gram Powder In Packet 17 g PO BID Qty: 0 RF: 0 pantoprazole 40 mg Tablet,Delayed Release (Dr/Ec) 40 mg PO DAILY@0730 Qty: 0 RF: 0 warfarin [Coumadin] 1 mg Tablet 1 mg PO MoWeThSa@2000 Qty: 0 RF: 0 Patch Removal [Remove Patch] 0 ea topical DAILY@0600 Qty: 0 RF: 0 Continued (DME) Inhaler, Assist Devices [Aerochamber Mini] 1 EACH spacer 1 ea Miscellaneous PRN Qty: 1 RF: 0 digoxin 125 mcg tablet 125 mcg PO DAILY Qty: 90 RF: 3 allopurinol 300 mg tablet 300 mg PO DAILY Qty: 90 RF: 3 Discontinued naloxone 4 mg/actuation spray,non-aerosol 1 spray MARIANA ONCE PRN (Reason: opioid overdose) Qty: 2 RF: 0 simvastatin 20 mg tablet 20 mg PO QPM Qty: 90 RF: 3 albuterol sulfate [Ventolin HFA] 90 mcg/actuation HFA aerosol inhaler 1 puff IH Q4H PRN (Reason: shortness of breath or wheezing) Qty: 6.7 RF: 5 metformin 500 mg tablet 500 mg PO DAILY Qty: 30 RF: 2 potassium chloride 20 mEq/15 mL liquid 20 meq PO DAILY Qty: 1500 RF: 3 Incruse Ellipta 62.5 mcg/actuation blister with device 1 inh IH DAILY Qty: 90 RF: 3 prednisone 5 mg tablet 5 mg PO DAILY Qty: 30 RF: 2 torsemide 20 mg tablet 60 - 80 mg PO DAILY Qty: 315 RF: 3 warfarin 2.5 mg Tablet 2.5 mg PO DIRECTED RF: 0 metoprolol tartrate 25 mg Tablet 25 mg PO BID RF: 0 ropinirole 0.25 mg Tablet 0.5 mg PO HS RF: 0 duloxetine 20 mg Capsule,Delayed Release(Dr/Ec) 20 mg PO DAILY RF: 0 diazepam 2 mg Tablet 1 mg PO HS PRN PRN (Reason: Anxiety) RF: 0 acetaminophen 500 mg Tablet 1,000 mg PO BID RF: 0 cyanocobalamin (vitamin B-12) 100 mcg Tablet 100 mcg PO DAILY RF: 0 Discharge Instructions Instructions: COPD (Chronic Obstructive Pulmonary Disease) (GEN) Stand Alone Forms: Nursing Discharge Form Activity:: Activity as Tolerated Equipment/Supplies:: No Equipment Needed Diet:: diabetes consistent CHO/Heart Healthy Discharge Data Discharge Comment: Discharge to Swing Bed status DS: Data Vitals/I&O Vitals and I&O: Vital Signs Temperature 36.6 C 11/12/19 07:10 Temperature Source Temporal Artery Scan 11/12/19 07:10 Pulse 60 11/12/19 07:47 Pulse Rhythm Regular 11/12/19 03:16 Respiratory Rate 16 11/12/19 07:10 Respiratory Effort Non-Labored 11/12/19 03:16 Respiratory Depth Normal 11/12/19 03:16 Respiratory Pattern Normal 11/12/19 03:16 Blood Pressure 109/71 11/12/19 07:10 Blood Pressure Position Supine 10/27/19 23:23 Pulse Oximetry 95 11/12/19 07:10 Oxygen Delivery Method Room Air 11/12/19 07:10 Oxygen Flow Rate 0 11/12/19 07:10 Pain Level 0 11/12/19 07:50 Comment 11/11/19 08:12 Intake & Output 11/11/19 11/11/19 11/12/19 11:59 23:59 11:59 Intake Total 397.5 / 847.5 450 / 847.5 100 / 100 Output Total 900 / 2650 1750 / 2650 Balance -502.5 / -1802.5 -1300 / -1802.5 100 / 100 Weight 83.2 kg 82.2 kg Intake: IV 157.5 / 357.5 200 / 357.5 100 / 100 Oral 240 / 490 250 / 490 Output: Urine 900 / 2650 1750 / 2650 Other: Urine Color Yellow Yellow Urine Appearance Clear Clear Clear Urine Odor None None Comment Void x1 in the urinal. Stool Size Large Stool Characteristics Formed Voiding Methods Urinal Urinal Data Completed and Pending Labs on day of discharge: Labs from last 24 hours 11/12/19 11/12/19 06:10 06:10 PT 20.5 H INR 2.1 H Sodium 130 L Potassium 3.9 Chloride 93 L Carbon Dioxide 29.8 Anion Gap 7.2 BUN 29 H Creatinine 1.18 Estimated GFR/1.73 m2 59.86 Glucose 116 H Calcium 9.1 PFS Medical History Asthma (Chronic) Atrial fibrillation (Chronic) Bronchiectasis (Acute 04/13/16) Chronic combined systolic and diastolic CHF (congestive heart failure) (Acute) Chronic fatigue (Chronic) Dilated idiopathic cardiomyopathy (Chronic) did not tolerate entresto. 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 Cataracts bilaterally b. Inguinal hernia LEFT HEART CARDIAC CATH Pacemaker (Acute) Repair of inguinal hernia left Family History Father Heart disease Mother Heart disease Social History Smoking/Tobacco Use Status: Never Alcohol Intake: never Drug use: Never Substance use type: does not use Current gender identity: male Do you feel safe at home: Yes Do you feel safe in your relationship?: Yes
--- NOTE | 2019-11-12 10:02 | DSE_ITS ---
Date of service: 11/12/19 Time of Service: 10:02 DS: Diagnosis Discharge Diagnosis (1) Acute on chronic combined systolic (congestive) and diastolic (congestive) heart failure: Status: Acute (2) Dilated idiopathic cardiomyopathy: Status: Chronic (3) Pneumonia: Status: Acute (4) REI (acute kidney injury): Status: Acute (5) AF (paroxysmal atrial fibrillation): Status: Chronic (6) Anticoagulated on warfarin: Status: Acute (7) Depression: Status: Chronic Discharge Plan Disposition Patient Disposition: [facility] SWING BED LEVEL 1 Condition: Fair Discharge Details Chief Complaint: SOB Clinical Impression: Pneumonia, REI (acute kidney injury) Reason For Visit: RLL PNA,ACUTE EXACERBATION OF CHRONIC COMBINED CHF Admit Date/Time: 10/28/19 02:46 Admit Provider: Vanna Gar Attending Provider: Vanna Gar Primary Care Provider: Bennie Adams ED Provider: [facility] Course Hospital Course: This is a 79 yo male admitted on 10/28/2019 with c/o shortness of breath. He has a PMHx of NICMO/chronic combined sytolic and diastolic CHF with EF of 20-25% by echo (2017), s/p AICD, pulmonary HTN with RV dysfunction, PAF, Non-oxygen but steroid dependent COPD, asthma, bronchiectasis. He described SOA especialy with laying down; onset 2 nights prior to admission. Found to have a RLL infiltrate and pulmonary edema on imaging. proBNP elevated. He was initiated on ceftriaxone and doxycycline. His troponin was 0.09 but remained flat. EKG unremarkable / paced rhythm. Diureses was initiated. Combivent, prednisone and prn albuterol initiated. Continued coumadin for AC; adjusted as needed. His PNA did not respond to the initial antibiotics. He was changed to augmentin and again did not appear to improved. Coverated changed to cefepime and vancomycin and ultimately to vancomycin and Meropenem. [facility] His initial depressed mood improved and he slowly showed improvement in his motivation and willingness to work with PT. His ultimate goal is to return home. He finished the prolonged course of antibiotics. His SOA and NAGEL improved significantly and he is ambulating with standby assistance in the hallway. His REI resolved. He will d/c from acute status to swingbed status Home Meds and New Rx's Prescriptions: New acetaminophen [Tylenol] 325 mg Tablet 325 mg PO Q4H PRN PRNQty: 0 RF: 0 dextrose [Glutose-15] 40 % Gel 10 gm PO DIRECTED PRNQty: 0 RF: 0 prednisone 5 mg Tablet 5 mg PO DAILY Qty: 0 RF: 0 magnesium hydroxide [Milk of Magnesia] 400 mg/5 mL Suspension 30 ml PO DAILY PRN PRNQty: 0 RF: 0 diazepam 2 mg Tablet 2 mg PO HS PRN PRN (Reason: anxiety) Qty: 0 RF: 0 simvastatin 20 mg Tablet 20 mg PO QPM Qty: 0 RF: 0 ropinirole 0.5 mg Tablet 0.5 mg PO HS Qty: 0 RF: 0 lidocaine [Lidoderm] 5 % Adhesive Patch,Medicated 2 patch topical DAILY@1800 Qty: 0 RF: 0 docusate sodium [Colace] 100 mg Capsule 100 mg PO TID PRN PRNQty: 0 RF: 0 bumetanide 1 mg Tablet 1 mg PO DAILY@08,16 Qty: 0 RF: 0 alum-mag hydroxide-simeth [Mag-Al Plus] 200-200-20 mg/5 mL Suspension 30 ml PO Q2H PRN PRNQty: 0 RF: 0 albuterol sulfate [Ventolin HFA] 90 mcg/actuation Hfa Aerosol Inhaler 2 puff inhalation Q2H PRN PRNQty: 0 RF: 0 dextrose 50 % in water (D50W) Syringe 50 gm IVP DIRECTED PRNQty: 0 RF: 0 sodium chloride 0.9 % (flush) [Monoject 0.9% Sodium Chloride] Syringe 20 ml IVP BID Qty: 0 RF: 0 insulin aspart U-100 [Novolog Flexpen U-100 Insulin] 100 unit/mL (3 mL) Insulin Pen 0 units subcut AC & HS Qty: 0 RF: 0 metoprolol tartrate 25 mg Tablet 37.5 mg PO BID Qty: 0 RF: 0 duloxetine [Cymbalta] 30 mg Capsule,Delayed Release(Dr/Ec) 30 mg PO DAILY Qty: 0 RF: 0 Sherice Protect Cream 1 applic topical PRN PRNQty: 0 RF: 0 Lantus Solostar U-100 Insulin 100 unit/mL (3 mL) Insulin Pen 10 units subcut HS Qty: 0 RF: 0 Combivent Respimat 20-100 mcg/actuation Mist 1 puff inhalation QID Qty: 0 RF: 0 Iv Access 1 ea IV DIRECTED Qty: 0 RF: 0 polyethylene glycol 3350 17 gram Powder In Packet 17 g PO BID Qty: 0 RF: 0 pantoprazole 40 mg Tablet,Delayed Release (Dr/Ec) 40 mg PO DAILY@0730 Qty: 0 RF: 0 warfarin [Coumadin] 1 mg Tablet 1 mg PO MoWeThSa@2000 Qty: 0 RF: 0 Patch Removal [Remove Patch] 0 ea topical DAILY@0600 Qty: 0 RF: 0 Continued (DME) Inhaler, Assist Devices [Aerochamber Mini] 1 EACH spacer 1 ea Miscellaneous PRN Qty: 1 RF: 0 digoxin 125 mcg tablet 125 mcg PO DAILY Qty: 90 RF: 3 allopurinol 300 mg tablet 300 mg PO DAILY Qty: 90 RF: 3 Discontinued naloxone 4 mg/actuation spray,non-aerosol 1 spray MARIANA ONCE PRN (Reason: opioid overdose) Qty: 2 RF: 0 simvastatin 20 mg tablet 20 mg PO QPM Qty: 90 RF: 3 albuterol sulfate [Ventolin HFA] 90 mcg/actuation HFA aerosol inhaler 1 puff IH Q4H PRN (Reason: shortness of breath or wheezing) Qty: 6.7 RF: 5 metformin 500 mg tablet 500 mg PO DAILY Qty: 30 RF: 2 potassium chloride 20 mEq/15 mL liquid 20 meq PO DAILY Qty: 1500 RF: 3 Incruse Ellipta 62.5 mcg/actuation blister with device 1 inh IH DAILY Qty: 90 RF: 3 prednisone 5 mg tablet 5 mg PO DAILY Qty: 30 RF: 2 torsemide 20 mg tablet 60 - 80 mg PO DAILY Qty: 315 RF: 3 warfarin 2.5 mg Tablet 2.5 mg PO DIRECTED RF: 0 metoprolol tartrate 25 mg Tablet 25 mg PO BID RF: 0 ropinirole 0.25 mg Tablet 0.5 mg PO HS RF: 0 duloxetine 20 mg Capsule,Delayed Release(Dr/Ec) 20 mg PO DAILY RF: 0 diazepam 2 mg Tablet 1 mg PO HS PRN PRN (Reason: Anxiety) RF: 0 acetaminophen 500 mg Tablet 1,000 mg PO BID RF: 0 cyanocobalamin (vitamin B-12) 100 mcg Tablet 100 mcg PO DAILY RF: 0 Discharge Instructions Instructions: COPD (Chronic Obstructive Pulmonary Disease) (GEN) Stand Alone Forms: Nursing Discharge Form Activity:: Activity as Tolerated Equipment/Supplies:: No Equipment Needed Diet:: diabetes consistent CHO/Heart Healthy Discharge Data Discharge Comment: Discharge to Swing Bed status DS: Summary Status at Discharge Functional status at discharge: independent ambulation Overall status at discharge: patient is progressing back to baseline Mental Status: mental status grossly normal Speech and Movement: speech and movement normal Mood: congruent mood Affect: normal affect Exam Narrative Exam Narrative: Walking in hallway at a slow but steady pace. NAD Neck Neck: normal visual inspection and full ROM Resp Effort & Inspection: normal respiratory effort Auscultation: clear to auscultation bilaterally and diminished lung sounds Cardio Jugular venous pressure: no JVD Other: Irregular rhythm GI Palpation: soft and nontender Auscultation: normal bowel sounds Extrem General: normal to inspection and no clubbing, cyanosis or edema Psych Appearance: grossly normal Mental Status: mental status grossly normal Speech and Movement: speech and movement normal Mood: congruent mood Affect: normal affect Attitude: cooperative Thought Process: normal DS: Data Vitals/I&O Vitals and I&O: Vital Signs Temperature 36.6 C 11/12/19 07:10 Temperature Source Temporal Artery Scan 11/12/19 07:10 Pulse 60 11/12/19 07:47 Pulse Rhythm Regular 11/12/19 03:16 Respiratory Rate 16 11/12/19 07:10 Respiratory Effort Non-Labored 11/12/19 03:16 Respiratory Depth Normal 11/12/19 03:16 Respiratory Pattern Normal 11/12/19 03:16 Blood Pressure 109/71 11/12/19 07:10 Blood Pressure Position Supine 10/27/19 23:23 Pulse Oximetry 95 11/12/19 07:10 Oxygen Delivery Method Room Air 11/12/19 07:10 Oxygen Flow Rate 0 11/12/19 07:10 Pain Level 0 11/12/19 07:50 Comment 11/11/19 08:12 Intake & Output 11/11/19 11/11/19 11/12/19 11:59 23:59 11:59 Intake Total 397.5 / 847.5 450 / 847.5 220 / 220 Output Total 900 / 2650 1750 / 2650 Balance -502.5 / -1802.5 -1300 / -1802.5 220 / 220 Weight 83.2 kg 82.2 kg Intake: IV 157.5 / 357.5 200 / 357.5 100 / 100 Oral 240 / 490 250 / 490 120 / 120 Output: Urine 900 / 2650 1750 / 2650 Other: Urine Color Yellow Yellow Urine Appearance Clear Clear Clear Urine Odor None None Comment Void x1 in the urinal. Stool Size Large Stool Characteristics Formed Voiding Methods Urinal Urinal Data Completed and Pending Labs on day of discharge: Labs from last 24 hours 11/12/19 11/12/19 06:10 06:10 PT 20.5 H INR 2.1 H Sodium 130 L Potassium 3.9 Chloride 93 L Carbon Dioxide 29.8 Anion Gap 7.2 BUN 29 H Creatinine 1.18 Estimated GFR/1.73 m2 59.86 Glucose 116 H Calcium 9.1 PFSH Medical History Asthma (Chronic) Atrial fibrillation (Chronic) Bronchiectasis (Acute 04/13/16) Chronic combined systolic and diastolic CHF (congestive heart failure) (Acute) Chronic fatigue (Chronic) Dilated idiopathic cardiomyopathy (Chronic) did not tolerate entresto. 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 Cataracts bilaterally b. Inguinal hernia LEFT HEART CARDIAC CATH Pacemaker (Acute) Repair of inguinal hernia left Family History Father Heart disease Mother Heart disease Social History Smoking/Tobacco Use Status: Never Alcohol Intake: never Drug use: Never Substance use type: does not use Current gender identity: male Do you feel safe at home: Yes Do you feel safe in your relationship?: Yes
[2019-11-12 11:30] VITALS: BP 96/54; PULSE 67; RESP 19; TEMP 36.5; O2SAT 95
[2019-11-12] MEDS: Insulin Aspart 300 UNITS/3 ML PEN SC (12:06)
--- NOTE | 2019-11-12 12:09 | CMPROGNOTE_ITS ---
- If Service Date Differs Date of service: 11/12/19 Time of Service: 12:09 Care Management Progress Note S/O: Irineo will transition to SWB1 for continued strengthening and to become more independent with his ADL's. He will continue to work with PT/OT for the next 7-10 days in order to meet these goals. CM met with Irineo to discuss his goals and to go over the SWB contract. All of his questions and concerns were addressed. He did not wish to have any cart items at this time. He is pleased to be staying at [facility] for his short term rehab. CM will continue to follow. A: Irineo is a 79 year old male admitted to [facility] on 10/28/19 for PNA, CHF. P: Irineo will transition from acute status to SWB 1 today to gain strength and independence with his ADL's prior to returning home. His short term rehab is planned to last for 7-10 days depending on the outcome of his treatment. His daughter Juju will be his visitor allowed during this stay. Once he is ready for discharge, Juju will drive him home and will set up any additional private care needed in the home. CM will coordinate RN, PT, OT, THERMOSTAT MACHINE TENDER for him once he is ready for discharge. CM will continue to follow and support discharge planning considerations.
--- NOTE | 2019-11-12 14:00 | NUR.NOTE ---
Nursing Note: 1300 pt from acute to SWB1. Pt remains in room 206
== END 2019-11-12 13:01 | disposition swing bed (61) | DRG 280 ==
LOC: ER 10-28 02:44 → MS 10-28 03:23
PROVIDERS: Family Medicine; Internal Medicine; Admitting Provider Internal Medicine; Emergency Provider Emergency Medicine; PCP Family Medicine; Visit Provider Internal Medicine
DX: I13.0 Hypertensive heart and chronic kidney disease with heart failure and stage 1 through stage 4 chronic kidney disease, or unspecified chronic kidney disease (principal); J18.9 Pneumonia, unspecified organism; I21.A1 Myocardial infarction type 2; I50.43 Acute on chronic combined systolic (congestive) and diastolic (congestive) heart failure; N17.9 Acute kidney failure, unspecified; J44.0 Chronic obstructive pulmonary disease with (acute) lower respiratory infection; I42.0 Dilated cardiomyopathy; I27.20 Pulmonary hypertension, unspecified; Z79.01 Long term (current) use of anticoagulants; I48.0 Paroxysmal atrial fibrillation; Z79.84 Long term (current) use of oral hypoglycemic drugs; K21.9 Gastro-esophageal reflux disease without esophagitis; Z95.810 Presence of automatic (implantable) cardiac defibrillator; Z66 Do not resuscitate; Z79.51 Long term (current) use of inhaled steroids; M10.9 Gout, unspecified; D47.2 Monoclonal gammopathy; G25.81 Restless legs syndrome; Z86.73 Personal history of transient ischemic attack (TIA), and cerebral infarction without residual deficits; R53.82 Chronic fatigue, unspecified; E11.22 Type 2 diabetes mellitus with diabetic chronic kidney disease; N18.9 Chronic kidney disease, unspecified; S70.01XA Contusion of right hip, initial encounter; W19.XXXA Unspecified fall, initial encounter; E66.9 Obesity, unspecified; Z68.29 Body mass index [BMI] 29.0-29.9, adult; R26.2 Difficulty in walking, not elsewhere classified; F32.9 Major depressive disorder, single episode, unspecified
CPT/HCPCS: 36410; 36415; 76881; 80048; 82805; 84145; 84156; 84166; 85027; 86335; 87040; 87449; 93005; 93306; 94640; 96365; 96366; 96368; 97110; 97162; 97530; 99223; 99232; 99233; 99239; 99255; 99285; NC; U0003; 36600; 70450; 71045; 71046; 72192; 80162; 80202; 81003; 81015; 81050; 83735; 83880; 84165; 84443; 84484; 85025; 85610; 86140; 87070; 87086; 87205; 87450; 87581; 93010; 93970; J0696; J1940; J2543; J3370; J3490; J7512

== ENCOUNTER 2019-11-12 13:05 | Inpatient (IN) | payer MEDICARE, MEDICAID, SELFPAY ==
--- NOTE | 2019-11-12 10:44 | HPE_ITS ---
Date of service: 11/12/19 Time of Service: 10:45 Assessment and Plan Assessment and plan (1) Goals of care, counseling/discussion: Status: Acute Assessment and plan: He is s/p a prolonged acute care stay. His goal is to improve his strength and gait safety so he can return home. (2) Acute on chronic combined systolic (congestive) and diastolic (congestive) heart failure: Status: Acute Assessment and plan: Low Na diet. Bumex 1 mg daily. (3) Pneumonia: Status: Acute Assessment and plan: Resolved during acute hospitalization. Monitor for any evidence of recurrence. (4) REI (acute kidney injury): Status: Acute Assessment and plan: Creatinine now normalized; 1.18 on 11/11. (5) AF (paroxysmal atrial fibrillation): Status: Chronic Assessment and plan: Cont coumadin for AC. Cont metoprolol and digoxin for rate control. (6) CAD (coronary artery disease): Status: Acute Assessment and plan: No c/o angina. Cont BB, statin and coumadin (7) COPD (chronic obstructive pulmonary disease): Status: Acute Assessment and plan: No current exacerbation. Cont nebs. (8) Diabetes mellitus type 2 with neurological manifestations: Status: Acute Assessment and plan: Basal/bolus insulin Consistent carb diet. Monitor (9) Frailty syndrome in geriatric patient: Status: Chronic Assessment and plan: Multifactoral; multiple chronic medical conditions; CAD, cardiomyopathy, chronic CHF, COPD, DM PT/OT. History of Present Illness History of Present Illness Chief Complaint: Generalized weakness following acute admission for PNA and CHF Narrative: This is a 79 year old male transitioning from acute care status to swingbed status. This is a 79 yo male admitted on 10/28/2019 with c/o shortness of breath. He has a PMHx of NICMO/chronic combined sytolic and diastolic CHF with EF of 20-25% by echo (2017), s/p AICD, pulmonary HTN with RV dysfunction, PAF, Non-oxygen but steroid dependent COPD, asthma, bronchiectasis. He described SOA especialy with laying down; onset 2 nights prior to admission. Found to have a RLL infiltrate and pulmonary edema on imaging. proBNP elevated. He was initiated on ceftriaxone and doxycycline. His troponin was 0.09 but remained flat. EKG unremarkable / paced rhythm. Diureses was initiated. Combivent, prednisone and prn albuterol initiated. Continued coumadin for AC; adjusted as needed. His PNA did not respond to the initial antibiotics. He was changed to augmentin and again did not appear to improved. Coverated changed to cefepime and vancomycin and ultimately to vancomycin and Meropenem. His Cymbalta was increased. His initial depressed mood improved and he slowly showed improvement in his motivation and willingness to work with PT. His ultimate goal is to return home. He finished the prolonged course of antibiotics. His SOA and NAGEL improved significantly and he is ambulating with standby assistance in the hallway. His REI resolved. Review of Systems Constitutional Constitutional: Denies body ache(s), Denies chills, Denies fever(s), Denies headache(s), Reports lethargy (Improving) and Denies poor appetite ENT Ears, Nose, Mouth, and Throat: Denies vertigo, Denies dizziness and Denies headache(s) Cardiovascular Cardiovascular: Denies chest pain, Denies palpitations, Reports dyspnea on exertion (Improving) and Denies orthopnea Respiratory Respiratory: Denies chest congestion, Denies pain on inspiration, Reports dyspnea on exertion (Improving) and Denies wheezing Gastrointestinal Gastrointestinal: Denies abdominal pain, Denies melena and Denies loose stools Musculoskeletal Musculoskeletal: Denies myalgias and Denies joint swelling Neurologic Neurologic: Denies vertigo, Denies dizziness and Denies headache(s) Psychiatric Psychiatric: Denies anxiety and Reports depression (Improving) Endocrine Endocrine: Denies palpitations Hematologic/Lymphatic Hematologic/Lymphatic: Reports easy bruising (On coumadin) Allergic/Immunologic Allergic/Immunologic: Denies wheezing [facility] Medical History Asthma (Chronic) Atrial fibrillation (Chronic) Bronchiectasis (Acute 04/13/16) Chronic combined systolic and diastolic CHF (congestive heart failure) (Acute) Chronic fatigue (Chronic) Dilated idiopathic cardiomyopathy (Chronic) did not tolerate entresto. 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 Cataracts bilaterally b. Inguinal hernia LEFT HEART CARDIAC CATH Pacemaker (Acute) Repair of inguinal hernia left Family History Father Heart disease Mother Heart disease Social History Smoking/Tobacco Use Status: Never Alcohol Intake: never Drug use: Never Substance use type: does not use Current gender identity: male Do you feel safe at home: Yes Do you feel safe in your relationship?: Yes Meds Home Medications and Allergies Home Medications Medication Instructions Recorded Confirmed Type Inhaler, Assist Devices #1 aer 12/27/17 01/21/19 Clinic [Aerochamber Mini] digoxin 125 mcg (0.125 mg) tablet 125 mcg PO DAILY #90 tab 01/13/19 10/28/19 Rx allopurinol 300 mg tablet 300 mg PO DAILY #90 tab 10/06/19 10/28/19 Rx IV Access 1 ea IV DIRECTED #0 11/12/19 Rx Patch Removal [Remove Patch] 0 ea TOPICAL DAILY@0600 #0 11/12/19 Rx acetaminophen [Tylenol] 325 mg PO Q4H PRN PRN #0 tab 11/12/19 Rx albuterol sulfate [Ventolin HFA] 2 puff INHALATION Q2H PRN PRN #0 g 11/12/19 Rx alum-mag hydroxide-simeth [Mag-Al 30 ml PO Q2H PRN PRN #0 ml 11/12/19 Rx Plus] bumetanide 1 mg PO DAILY@08,16 #0 tab 11/12/19 Rx dextrose 50 % in water (D50W) 50 gm IVP DIRECTED PRN #0 ml 11/12/19 Rx dextrose [Glutose-15] 10 gm PO DIRECTED PRN #0 gm 11/12/19 Rx diazepam 2 mg PO HS PRN PRN #0 tab 11/12/19 Rx dimethicone-zinc oxide [Sherice 1 applic TOPICAL PRN PRN #0 gm 11/12/19 Rx Protect] docusate sodium [Colace] 100 mg PO TID PRN PRN #0 cap 11/12/19 Rx duloxetine [Cymbalta] 30 mg PO DAILY #0 cap 11/12/19 Rx insulin aspart U-100 [Novolog 0 units SUBCUT AC & HS #0 ml 11/12/19 Rx Flexpen U-100 Insulin] insulin glargine [Lantus Solostar 10 units SUBCUT HS #0 ml 11/12/19 Rx U-100 Insulin] ipratropium-albuterol [Combivent 1 puff INHALATION QID #0 g 11/12/19 Rx Respimat] lidocaine [Lidoderm] 2 patch TOPICAL DAILY@1800 #0 ea 11/12/19 Rx magnesium hydroxide [Milk of 30 ml PO DAILY PRN PRN #0 ml 11/12/19 Rx Magnesia] metoprolol tartrate 37.5 mg PO BID #0 tab 11/12/19 Rx pantoprazole 40 mg PO DAILY@0730 #0 tab 11/12/19 Rx polyethylene glycol 3350 17 g PO BID #0 ea 11/12/19 Rx prednisone 5 mg PO DAILY #0 tab 11/12/19 Rx ropinirole 0.5 mg PO HS #0 tab 11/12/19 Rx simvastatin 20 mg PO QPM #0 tab 11/12/19 Rx sodium chloride 0.9 % (flush) 20 ml IVP BID #0 ml 11/12/19 Rx [Monoject 0.9% Sodium Chloride] warfarin [Coumadin] 1 mg PO MoWeThSa@2000 #0 tab 11/12/19 Rx Allergies Allergy/AdvReac Type Severity Reaction Status Date / Time venom-honey bee Allergy Severe Verified 10/26/19 10:00 oxycodone HCl [From Percocet] Allergy Intermediate Verified 10/26/19 10:00 aspirin AdvReac Mild epistaxis/nose Verified 10/26/19 10:00 bleeds NSAIDS (Non-Steroidal AdvReac Mild epistaxis/nose Verified 10/26/19 10:00 Anti-Inflamma bleeds PARMINDER Inhibitors AdvReac Unknown COUGH Verified 10/26/19 10:00 codeine AdvReac Unknown Verified 10/26/19 10:00 amiodarone AdvReac Insomnia Verified 10/26/19 10:00 diltiazem AdvReac Insomnia Verified 10/26/19 10:00 Exam Const General: cooperative and well groomed Nutritional Appearance: average body habitus Orientation: alert and oriented x3 Eyes Sclera: sclerae normal Pupils: PERRL Resp Effort & Inspection: normal respiratory effort Auscultation: clear to auscultation bilaterally and diminished lung sounds Cardio Jugular venous pressure: no JVD Other: Irreg Irreg GI Palpation: soft and nontender Auscultation: normal bowel sounds Neuro General: patient alert Cognition: normal cognition Speech: speech normal Extrem General: normal to inspection and no clubbing, cyanosis or edema Psych Appearance: grossly normal Speech and Movement: speech and movement normal Mood: congruent mood Affect: normal affect Attitude: cooperative COVID-19 Screening Have you, or has anyone in your household, traveled outside of [place] in the last 14 days?: NO
--- NOTE | 2019-11-12 13:50 | PHA.REVIEW ---
Pharmacy Admission Review - Admission Clinical Review (Last Reviewed 11/12/19 @ 10:47 by Dayton Muñoz MD) Diabetes mellitus type 2 with neurological manifestations (Acute) Goals of care, counseling/discussion (Acute) Acute on chronic combined systolic (congestive) and diastolic (congestive) heart failure (Acute) Pneumonia (Acute) REI (acute kidney injury) (Acute) CAD (coronary artery disease) (Acute) COPD (chronic obstructive pulmonary disease) (Acute) venom-honey bee Allergy (Severe, Verified 10/26/19 10:00) oxycodone HCl [From Percocet] Allergy (Intermediate, Verified 10/26/19 10:00) aspirin Adverse Reaction (Mild, Verified 10/26/19 10:00) epistaxis/nose bleeds NSAIDS (Non-Steroidal Anti-Inflamma Adverse Reaction (Mild, Verified 10/26/19 10:00) epistaxis/nose bleeds PARMINDER Inhibitors Adverse Reaction (Unknown, Verified 10/26/19 10:00) COUGH codeine Adverse Reaction (Unknown, Verified 10/26/19 10:00) amiodarone Adverse Reaction (Verified 10/26/19 10:00) Insomnia diltiazem Adverse Reaction (Verified 10/26/19 10:00) Insomnia - Renal Dosing Medications needing adjustments: Reviewed - Anticoagulation DVT Prohphylaxis: N/A Therapeutic Anticoagulation: Reviewed Medications: Warfarin - Opiate Usage Evaluate Pain Scale/Pains Meds: N/A - Relevant Labs Electrolytes, C-Reactive P, ESR: Reviewed - DM Control Insulin Dosing: Reviewed (Aspart per SS, Glargie 10 U at HS) - Heart Failure/GA EF%, PARMINDER's, B-Blockers, Diuretics: Reviewed (bumetanide, digoxin, metoprolol) - BP Control If elevated: Reviewed - Qtc Review If Elevated: Reviewed - IV to PO Switch IV Medications: Reviewed - Home Meds Home Med List reviewed: Reviewed - Comments Comments/Follow Ups: Swingbed as of 11/11; Last dose of meropenem 11/11 at 0800
--- NOTE | 2019-11-12 13:52 | CMPROGNOTE_ITS ---
- If Service Date Differs Date of service: 11/12/19 Time of Service: 13:53 Care Management Progress Note S/O: Irineo will transition to SWB1 for continued strengthening and to become more independent with his ADL's. He will continue to work with PT/OT for the next 7-10 days in order to meet these goals. CM met with Irineo to discuss his goals and to go over the SWB contract. All of his questions and concerns were addressed. He did not wish to have any cart items at this time. He is pleased to be staying at [facility] for his short term rehab. CM will continue to follow. A: Irineo is a 79 year old male admitted to [facility] on 10/28/19 for PNA, CHF. P: Irineo will transition from acute status to SWB 1 today to gain strength and independence with his ADL's prior to returning home. His short term rehab is planned to last for 7-10 days depending on the outcome of his treatment. His daughter Juju will be his visitor allowed during this stay. Once he is ready for discharge, Juju will drive him home and will set up any additional private care needed in the home. CM will coordinate RN, PT, OT, PRACTICE ADVISOR for him once he is ready for discharge. CM will continue to follow and support discharge planning considerations.
--- NOTE | 2019-11-12 13:58 | CMSCP_ITS ---
- If Service Date Differs Date of service: 11/12/19 Time of Service: 13:59 Swingbed Plan of Care Plan of care: SWING BED PROGRAM ACTIVITIES/DISCHARGE PLAN OF CARE ACTIVITIES PLAN Date: 11/12/19 Identified Need: Individual needs Intervention/Plan: TV in room, offer activity cart items. No volunteer services are available at this time d/t Covid 19. Initials [facility] DISCHARGE PLAN Date: 11/12/19 Identified Need: Strength training and increased independence with ADL's. Intervention/Plan: Srini will work with with PT and OT during his SWB admi ssion in order to gain strength and become more independent with his ADL's in order to return home. Initials [facility]
--- NOTE | 2019-11-12 14:01 | NUR.NOTE ---
1300 pt admitted to [facility] at this time pt remains in room 206
--- NOTE | 2019-11-12 14:02 | CM.SBPSYCH ---
- If Service Date Differs Date of service: 11/12/19 Time of Service: 14:02 SB Psychosocial/Act.Assessment - Hospital Admission Admission Date: 10/28/19 Admission From:: [facility] acute admission Diagnosis:: PNA, CHF - Swing Bed Admission Swing Bed Admit Date:: 11/12/19 Swing Bed Level of Care: Level 1/SNF - Social Supports PREVIOUS FUNCTIONAL STATUS/SOCIAL/FAMILY SUPPORTS:: Srini lives alone in his home in [place]. Per report, he still drives and handles his own finances. He is independent at baseline. His daughter, Juju, is supportive and lives nearby. - Prior to Admission Living Arrangements/Environment Prior to Admission:: Irineo lives at home on one level, alone, in [place]. His daughter recently moved into the apartment above his garage, so she is close to him, visits, and helps him prepare his meals daily. He has been independent prior to this admission. 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 - Interests Hobbies:: Irineo likes to go to [employer] when he can. Music:: Irineo likes Country music. TV/Movies:: Irineo likes watching TV occasionally. Outdoor Activities:: Irineo's outdoor activities are limited due to his medical condition. - Present Functional Status Physical Abilities:: Srini is working on his physical abilities with PT. He is weak/sob with movement, but slowly improving. Cognitive:: Cognitively instact. AOx3. Communication:: Good communication, when he engages. Sensory Systems: All intact and appropriate for age. Behavior:: Calm, appropriate, pleasant. - Medical History PAST MEDICAL HISTORY/PAST SURGICAL HISTORY:: Medical History . Asthma (Chronic). Atrial fibrillation (Chronic). Bronchiectasis (Acute 04/13/16). Chronic combined systolic and diastolic CHF (congestive heart failure) (Acute). Chronic fatigue (Acute). Dilated idiopathic cardiomyopathy (Chronic). did not tolerate entresto. [place] [facility] [place]. GERD (gastroesophageal reflux disease) (Chronic). Gout attack (Inactive). HTN (hypertension) (Chronic). 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 Non-insulin dependent diabetes mellitus (Acute). Peripheral edema (Acute). Pulmonary hypertension (Chronic). Restless leg syndrome (Acute). 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 TIA (transient ischemic attack) (Acute). Surgical History . AICD (automatic cardioverter/defibrillator) present (Acute). Extraction of cataract. B/L. H/O surgical procedure (Chronic). a. Cataracts bilaterally. b. Inguinal hernia. LEFT HEART CARDIAC CATH. Pacemaker (Acute). Repair of inguinal hernia. left - Admission Data Reason for Swing Bed Admission:: Irineo will work with PT/OT for increased strengthening and independence of ADL's. Discharge Plan:: Irineo will return home once he is stronger and more independent with ADL's. Assessment: Irineo will work with PT and OT while at [facility] on SWB1 in order to gain strength and become more independent with his ADL's prior to returning home. His daughter Juju is involved in his care and is supportive of this plan. Cnc Technician: Kaci Reyes Date Assessment was completed:: 11/12/19
--- NOTE | 2019-11-12 15:25 | NT_ITS ---
Date of service: 11/12/19 Time of Service: 07:35 Occupational Therapy Notes 11/12/19 OT consult received and pt's chart was reviewed. OT attempted to see pt 2x this morning, both times pt was still sleeping and not responding to OT verbally. OT will attempt to resume OT services on Saturday11/16/19. Carmen Gurrola OTR/[facility]
[2019-11-12 15:29] VITALS: BP 113/74; PULSE 71; RESP 18; TEMP 36.3; O2SAT 98
[2019-11-12] MEDS: Ipratropium/Albuterol 4 GM 120 PUFF INH IH ×2 (16:03→20:01)
[2019-11-12] MEDS: Bumetanide 1 MG TAB PO (16:23)
--- NOTE | 2019-11-12 17:00 | PT.INIE ---
Date of service: 11/12/19 PT Notes Visit Reasons: SWINGBED Inpatient Physical Therapy Swing Bed 1 Level Initial Evaluation Dates: 11/12/2019 Referring Doctor: Dayton Muñoz MD PT Orders: PT CONSULT: Limited ability Precautions: Fall. Standard. Activity as tolerated. Patient Profile/Admitting Diagnosis: Irineo is re-evaluated under swing bed level today, November 12, 2019. Srini is a 79-year-old male who presented to the ED on a 10/27/2019 with a chief complaint of increasing shortness of breath that started 2 days prior to admission. Patient is diagnosed with acute on chronic combined systolic and diastolic CHF with EF of 20-25%, right lower lobe pneumonia, elevated troponin, acute kidney injury, asymmetric edema to BLE, COPD and IDDM, therapeutic INR and ambulatory dysfunction with referral to services to address functional mobility decline. PMHX: Medical History Asthma (Chronic) Atrial fibrillation (Chronic) Bronchiectasis (Acute 04/13/16) Chronic combined systolic and diastolic CHF (congestive heart failure) (Acute) Chronic fatigue (Acute) Dilated idiopathic cardiomyopathy (Chronic) did not tolerate entresto. 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 Cataracts bilaterally b. Inguinal hernia LEFT HEART CARDIAC CATH Pacemaker (Acute) Repair of inguinal hernia left Subjective: Irineo requested to be seen a little later as he wanted to rest. He states that he went and already walked with Nurse Bren early this morning and wanted to rest a bit more to recover. He was agreeable upon second attempt this morning for a PT session. Objective: General Observation: Obese. IV in the L UE. Skin color showing better oxygenation much improved compared to last week. Mental Status: Alert and oriented x 4 Pain: None reported ROM: Right Upper Extremity: Shoulder Flexion WFL. Shoulder abduction WFL. Elbow flexion WFL. Wrist flexion WFL. Opening and closing of hand WFL. Left Upper Extremity: Shoulder Flexion WFL. Shoulder abduction WFL. Elbow flexion WFL. Wrist flexion WFL. Opening and closing of hand WFL. Right Lower Extremity: Hip flexion WFL. Hip abduction WFL. Knee flexion WFL. Ankle dorsiflexion WFL. Ankle plantarflexion WFL. Left Lower Extremity: Hip flexion WFL. Hip abduction WFL. Knee flexion WFL. Ankle dorsiflexion WFL. Ankle plantarflexion WFL. Strength: Right Upper Extremity: Shoulder flexors 4/5. Shoulder abductors 4/5. Elbow flexors 4/5. Elbow extensors 4/5. Smoke Control Supervisor strong. Left Upper Extremity: Shoulder flexors 4/5. Shoulder abductors 4/5. Elbow flexors 4/5. Elbow extensors 4/5. Smoke Control Supervisor strong. Right Lower Extremity: Hip flexors 4/-5. Hip abductors 4-/5. Knee flexors 4-/5. Knee extensors 4-/5. Ankle dorsiflexors 4-/5. Ankle plantarflexors 4-/5. Left Lower Extremity:Hip flexors 4-/5. Hip abductors 4-/5. Knee flexors 4-/5. Knee extensors 4-/5. Ankle dorsiflexors 4-/5. Ankle plantarflexors 4-/5. Sensation: Intact as to pain and pressure on bilateral lower extremities. Bed Mobility/Transfers: Sit to supine SBA Sit to stand SBA with FWW Stand to sit SBA with FWW Bed to chair SBA with FWW Chair to bed SBA with FWW Gait: 160' + 160' using FWW with FWB with SBA and minimal SOB which resolved with rest. Dominga, step height, and step length increased compared to yesterday. Shuffling gait pattern diminshing but patient continue to lag behind front-wheeled walker. Moderate verbal cueing needed for safety and correction. THERA EX: LAQs x 10, seated hip flexion x 10, ankle pumps ax 10. Balance: Static Sitting: Normal Dynamic Sitting: Normal Static Standing: Fair Dynamic Standing: Fair Special Tests: Mobility Limitations Standardized Measure [facility] AM-PAC 6 clicks Basic Mobility Inpatient Short Form: Raw Score: 21 CMS Score: 29% deficit Informed Consent/Education: Patient instructed in purpose of PT consult and plan of care. Assessment: Irineo shuffled significantly less today but continues to lag behind walker requiring verbal cueing for correction. Patient continues to demonstrate functional mobility decline requiring the use of walker for all mobility ADL performance, strength impairments, balance limitations, and endurance deficits resulting from admitting diagnoses. He will continue to benefit from skilled PT services in order regain prior level of function. He is agreeable to goals that have been established under SB1. Patient continues to present with clinical signs and symptoms consistent with current/admitting diagnoses that have resulted to mobility limitations, gait instability, generalized weakness, and impairment of motor control as demonstrated by the following impairment level findings: 1. Decreased strength to B UE/LE major muscle groups 2. Impaired standing balance 3. Impaired activity tolerance Impairments are continuing to contribute to the following functional limitations: 1. Inability to safely ambulate without assistive device and physical assistance 2. Increase completion time for mobility ADL performance 3. Increased fall risk 4. Inability to negotiate steps alone safely Patient is assessed as a 39225 moderate complexity based on the following: History: 79-year-old male with impairment level findings, functional limitations, and past medical history as indicated above Examination: Demonstrable impairment in strength, balance, and mobility level with underlying impairments and functional limitations as documented above Presentation:Evolving Decision Makin moderate complexity Goals: Goals X1 week 1. Supine-Sit independent 2. Sit-Supine independent 3. Sit-Stand independent 4. Stand-Sit independent 5. Bed-Chair independent 6. Chair-Bed independent 7. Independent gait on level surface with use of least restrictive device for at least 300 feet without report of pain nor dyspnea 8. Independent stair negotiation while holding onto bilateral rails for at least 10 steps without report of pain nor dyspnea 9. Independent with home exercise program 10. Good static and dynamic standing balance/tolerance DISCHARGE RECOMMENDATIONS: Continue with skilled PT services under SB1 as of today, November 12, 2019. Goals have been reviewed with patient and written on the white board in his room for maximum compliance. TREATMENT CODE/TIME: 00680 x 25 minutes, 41955 x 14 minutes. Thank you very much for this referral. Beverley Cisneros PT, DPT, CLT [facility], [place]
[2019-11-12] MEDS: Insulin Aspart 300 UNITS/3 ML PEN SC ×2 (17:22→21:42)
[2019-11-12] MEDS: Nystatin 500000 UNITS/5 ML SUSP 5ML CUP PO (18:22)
[2019-11-12] MEDS: Lidocaine 5% Patch 2 PATCH TP (18:22)
[2019-11-12] MEDS: Metoprolol 25 MG TAB 37.5 MG PO (19:56)
[2019-11-12] MEDS: Simvastatin 20 MG TAB PO (19:58)
[2019-11-12] MEDS: Polyethylene Glycol 3350 17 GM PACKET PO (19:59)
[2019-11-12] MEDS: Normal Saline Flush 10 ML SYR 20 ML IVP (20:00)
[2019-11-12] MEDS: Warfarin 1 MG TAB PO (20:03)
[2019-11-12] MEDS: rOPINIRole 0.5 MG TAB PO (21:42)
[2019-11-12] MEDS: Insulin Glargine 300 UNITS/3 ML PEN 10 UNITS SC (21:43)
[2019-11-12 23:24] VITALS: BP 109/64; PULSE 64; RESP 19; TEMP 36.3; O2SAT 93
[2019-11-13] MEDS: Nystatin 500000 UNITS/5 ML SUSP 5ML CUP PO ×4 (06:20→20:09)
[2019-11-13] MEDS: LIDOCAINE Patch Removal TP (06:20)
[2019-11-13 07:24] LABS: INR 2.1 (0.9-1.1); Prothrombin Time 20.3 sec (9.3-11.0)
[2019-11-13 07:25] VITALS: BP 104/71; PULSE 64; RESP 18; TEMP 36.1; O2SAT 94
[2019-11-13] MEDS: Ipratropium/Albuterol 4 GM 120 PUFF INH IH ×4 (07:34→20:10)
[2019-11-13] MEDS: Insulin Aspart 300 UNITS/3 ML PEN SC ×4 (07:55→22:22)
[2019-11-13] MEDS: Pantoprazole 40 MG TABCR PO (07:56)
[2019-11-13] MEDS: DULoxetine 30 MG CAP PO (07:56)
[2019-11-13 07:57] VITALS: PULSE 70
[2019-11-13] MEDS: Digoxin 0.125 MG TAB PO (07:57)
[2019-11-13] MEDS: Allopurinol 300 MG TAB PO (07:57)
[2019-11-13] MEDS: predniSONE 5 MG TAB PO (07:57)
[2019-11-13] MEDS: Bumetanide 1 MG TAB PO ×2 (07:57→16:55)
[2019-11-13] MEDS: Metoprolol 25 MG TAB 37.5 MG PO ×2 (07:58→20:10)
[2019-11-13] MEDS: Polyethylene Glycol 3350 17 GM PACKET PO ×2 (08:00→20:10)
[2019-11-13] MEDS: Normal Saline Flush 10 ML SYR 20 ML IVP ×2 (08:00→20:11)
--- NOTE | 2019-11-13 10:40 | PT.INTREAT ---
PT Notes Visit Reasons: SWINGBED Inpatient Physical Therapy Treatment Note [facility] Date: 11/13/19 PRECAUTIONS:Fall, Activity as roni. SUBJECTIVE: [] OBJECTIVE: Sit-supine: SBA Sit-stand: SBA Stand-sit: SBA GAIT Assistive Device: FWW Weight bearing: FWB Assist: SBA Distance: 160 then transferred to the rest room from his bed. THEREX: Pt completed UE and LE strengthening ther ex as per flow sheet. ASSESSMENT: Pt tolerated today's session well. PLAN: Cont as per roni as per PT POC. TREATMENT CODE/TIME: 9:10-9:15-9:50-10:15 (30) T[facility] TORRES
[2019-11-13] MEDS: Acetaminophen 325 MG TAB PO (10:41)
[2019-11-13 15:00] VITALS: BP 105/73; PULSE 66; RESP 18; TEMP 35.9; O2SAT 98
[2019-11-13] MEDS: Lidocaine 5% Patch 2 PATCH TP (20:09)
[2019-11-13] MEDS: Simvastatin 20 MG TAB PO (20:10)
[2019-11-13 20:15] VITALS: BP 115/78; PULSE 70; RESP 20; TEMP 35.9; O2SAT 95
[2019-11-13] MEDS: Insulin Glargine 300 UNITS/3 ML PEN 10 UNITS SC (22:22)
[2019-11-13] MEDS: rOPINIRole 0.5 MG TAB PO (22:22)
[2019-11-14] MEDS: LIDOCAINE Patch Removal TP (06:35)
[2019-11-14] MEDS: Nystatin 500000 UNITS/5 ML SUSP 5ML CUP PO ×2 (06:35→21:28)
[2019-11-14 07:10] VITALS: BP 93/64; PULSE 66; RESP 19; TEMP 35.1; O2SAT 90
[2019-11-14 07:56] LABS: Prothrombin Time 19.8 sec (9.3-11.0)
[2019-11-14] MEDS: Ipratropium/Albuterol 4 GM 120 PUFF INH IH ×4 (07:57→19:54)
[2019-11-14] MEDS: predniSONE 5 MG TAB PO (08:29)
[2019-11-14] MEDS: Pantoprazole 40 MG TABCR PO (08:29)
[2019-11-14 08:30] VITALS: PULSE 64
[2019-11-14] MEDS: Digoxin 0.125 MG TAB PO (08:30)
[2019-11-14] MEDS: DULoxetine 30 MG CAP PO (08:30)
[2019-11-14] MEDS: Bumetanide 1 MG TAB PO ×2 (08:30→16:39)
[2019-11-14] MEDS: Allopurinol 300 MG TAB PO (08:30)
[2019-11-14 08:36] VITALS: BP 100/62; PULSE 64
[2019-11-14] MEDS: Metoprolol 25 MG TAB 37.5 MG PO ×2 (08:36→19:53)
[2019-11-14] MEDS: Normal Saline Flush 10 ML SYR 20 ML IVP ×2 (08:37→19:57)
--- NOTE | 2019-11-14 10:44 | PT.INTREAT ---
Date of service: 11/14/19 Time of Service: 10:44 PT Notes Visit Reasons: SWINGBED 11/14/2019 SUBJECTIVE: Pt stating he hates to get up. Continues to note weakness in his legs and SOB during gait. OBJECTIVE: Supine in bed. Agreeable to PT treatment. TRANSFERS Supine to sit: SBA Sit to stand: SBA Stand to sit: SBA GAIT Device: FWW Weight bearing: Full Assist: SBA Distance: 160'x2 Deviation: 1 sit rest break, cues to increase step length and height. THEREX: Light seated LE strengthening. See flow sheet. ASSESSMENT: Fatigues quickly with gait and therex. Pt would benefit from light balance activities and we will begin this tomorrow if pt tolerates. PLAN: Continue current POC adding balance activities per his tolerance. Treatment time: 25 minutes [id number] Elsy Mitchell PTA Clinic location: [facility] [place], [place]
[2019-11-14] MEDS: Insulin Aspart 300 UNITS/3 ML PEN SC ×2 (11:52→21:28)
[2019-11-14 15:20] VITALS: BP 113/79; PULSE 66; RESP 19; TEMP 35.9; O2SAT 93
[2019-11-14] MEDS: Acetaminophen 325 MG TAB PO (16:39)
[2019-11-14] MEDS: Lidocaine 5% Patch 2 PATCH TP (18:45)
[2019-11-14 18:50] VITALS: BP 138/82; PULSE 66; RESP 19; TEMP 36.6; O2SAT 96
[2019-11-14] MEDS: Polyethylene Glycol 3350 17 GM PACKET PO (19:52)
[2019-11-14] MEDS: Simvastatin 20 MG TAB PO (19:53)
[2019-11-14] MEDS: Warfarin 1 MG TAB PO (19:57)
[2019-11-14] MEDS: Insulin Glargine 300 UNITS/3 ML PEN 10 UNITS SC (21:28)
[2019-11-14] MEDS: rOPINIRole 0.5 MG TAB PO (21:28)
[2019-11-15 04:00] VITALS: BP 101/72; PULSE 61; RESP 18; TEMP 36.6; O2SAT 98
[2019-11-15] MEDS: LIDOCAINE Patch Removal TP (05:55)
[2019-11-15] MEDS: Nystatin 500000 UNITS/5 ML SUSP 5ML CUP PO ×5 (05:55→21:23)
[2019-11-15 07:25] VITALS: BP 115/83; PULSE 41; RESP 18; TEMP 35.2; O2SAT 90
[2019-11-15] MEDS: Bumetanide 1 MG TAB PO ×2 (07:30→15:43)
[2019-11-15] MEDS: Pantoprazole 40 MG TABCR PO (07:34)
[2019-11-15 07:49] LABS: INR 1.6 (0.9-1.1); Prothrombin Time 16.1 sec (9.3-11.0)
[2019-11-15] MEDS: Ipratropium/Albuterol 4 GM 120 PUFF INH IH ×4 (08:12→20:12)
[2019-11-15] MEDS: Normal Saline Flush 10 ML SYR 20 ML IVP ×2 (09:40→20:12)
[2019-11-15] MEDS: Polyethylene Glycol 3350 17 GM PACKET PO ×2 (09:41→20:12)
[2019-11-15] MEDS: DULoxetine 30 MG CAP PO (09:41)
[2019-11-15] MEDS: predniSONE 5 MG TAB PO (09:42)
[2019-11-15] MEDS: Allopurinol 300 MG TAB PO (09:42)
[2019-11-15] MEDS: Metoprolol 25 MG TAB 37.5 MG PO ×2 (09:42→20:10)
--- NOTE | 2019-11-15 10:02 | PT.INTREAT ---
Date of service: 11/15/19 Time of Service: 10:02 PT Notes Visit Reasons: SWINGBED 11/15/2019 SUBJECTIVE: Pt notes being tired but this is nothing new. OBJECTIVE: Supine in bed. Agreeable to PT treatment. TRANSFERS Supine to sit: SBA Sit to stand: SBA Stand to sit: SBA GAIT Device: FWW Weight bearing: Full Assist: SBA Distance: 160'x2 Deviation: Slow gait pattern, requires 1 sit rest break THEREX: Seated LE strengthening, added one balance activity with small ADE. See flow sheet. ASSESSMENT: Fatigues quickly with PT today. He did have one minor LOB with gait and was able to self correct using his FWW. PLAN: Continue current POC. Treatment time: 30' [id number] Elsy Mitchell PTA Clinic location: [facility] [place], [place]
[2019-11-15 10:10] VITALS: PULSE 52
[2019-11-15] MEDS: Insulin Aspart 300 UNITS/3 ML PEN SC ×3 (12:07→21:23)
[2019-11-15 15:10] VITALS: BP 121/78; PULSE 64; RESP 18; TEMP 36; O2SAT 96
[2019-11-15] MEDS: Lidocaine 5% Patch 2 PATCH TP (17:18)
[2019-11-15] MEDS: Simvastatin 20 MG TAB PO (20:11)
[2019-11-15] MEDS: rOPINIRole 0.5 MG TAB PO (21:23)
[2019-11-15] MEDS: Insulin Glargine 300 UNITS/3 ML PEN 10 UNITS SC (21:24)
[2019-11-15 22:50] VITALS: BP 117/79; PULSE 67; RESP 19; TEMP 36.1; O2SAT 93
[2019-11-16] MEDS: LIDOCAINE Patch Removal TP (05:44)
[2019-11-16] MEDS: Nystatin 500000 UNITS/5 ML SUSP 5ML CUP PO ×4 (05:44→20:59)
[2019-11-16 07:05] VITALS: BP 103/71; PULSE 60; RESP 17; TEMP 36.4; O2SAT 95
[2019-11-16] MEDS: Ipratropium/Albuterol 4 GM 120 PUFF INH IH ×4 (07:43→20:57)
--- NOTE | 2019-11-16 07:55 | OT.INIE ---
Occupational Therapy Notes Inpatient Occupational Therapy [facility] Evaluation Date: 11/16/19 Referring Doctor: Dayton Muñoz MD OT Orders: Non-Urgent Precautions: Fall, Standard, DNR/DNI PATIENT PROFILE/ADMITTING DIAGNOSIS: Pt is a 79 year old male who was admitted through the ER on 10/27/19 with a chief c/o increasing shortness of breath that started 2 days prior to admission. Patient is diagnosed with acute on chronic combined systolic and diastolic CHF with EF of 20-25%, right lower lobe pneumonia, elevated troponin, acute kidney injury, asymmetric edema to BLE, COPD and IDDM, therapeutic INR.Pt was transitioned to [facility] on 11/12/19. Past Medical History- Medical History Asthma (Chronic) Atrial fibrillation (Chronic) Bronchiectasis (Acute 04/13/16) Chronic combined systolic and diastolic CHF (congestive heart failure) (Acute) Chronic fatigue (Acute) Dilated idiopathic cardiomyopathy (Chronic) did not tolerate entresto. 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 Cataracts bilaterally b. Inguinal hernia LEFT HEART CARDIAC CATH Pacemaker (Acute) Repair of inguinal hernia left Social History/Home Situation: Pt lives in a private home in [place], [place]. He states that he is (I) with bathing and has a walk in shower with bench, he is (I) with dressing but states that at times he has difficulty with his socks. He utilizes a FWW for functional mobility. He has a daughter who (A) him with cooking and cleaning as well as laundry, grocery shopping and clinical scientist. He states that he has 1 step to enter his home with no railings. He was previously (I) with his community mobility. Most of his limitations that come with his ADL/IADL routines is based on his SOB at home. Equipment owned/DME: FWW, shower seat, grab bars SUBJECTIVE: Pt was lying in bed when OT arrived. He is agreeable to OT session, he reports that he is unable to OBJECTIVE: General Observation: Bruising along pts (B) UE due to IV placements, pleasant and able to answer questions appropriately. Mental Status: A&Ox3 Pain: c/o pain throughout body ROM: RUE AROM WFL L UE AROM WFL STRENGTH: RUE Shoulder flexion 3-/5, bicep 3/5, tricep 3/5, strategy specialist is weak and symmetrical LUE Shoulder flexion 3-/5, bicep 3-/5, tricep 3/5, strategy specialist is weak and symmetrical SENSATION: Intact (B) UE FUNCTIONAL MOBILITY/ADLS: Transfers with FWW Supine-sit (I) Sit-Stand (S) Stand-sit (S) Bed-Chair (S) BATHING Pt denies he reports that he was washed up last night. DRESSING Dressing UE Sitting in chair (I) with don and doffing t-shirt Dressing LE sitting on side of bed (I) with don and doffing (B) socks with increased performance time. GROOMING Sitting in chair (I) with brushing hair TOILETING NT EATING NT although does have ideal AROM for performance of eating routine. BALANCE: Static sitting Normal Dynamic Sitting Normal Static Standing Good Dynamic Standing Good SPECIAL TESTS: Daily Activity Limitations Standardized Measure [facility] AM -PAC ?6 clicks? Daily Activity Inpatient Short Form: Raw score: 23 Standardized score: 51.12 CMS score: 15.86% INFORMED CONSENT/EDUCATION: Pt instructed in purpose of OT Consult and plan of care. ASSESSMENT: Patient is a 79-year-old male referred to occupational therapy services with diagnosis of acute on chronic combined systolic and diastolic CHF with EF of 20-25%, right lower lobe pneumonia, elevated troponin, acute kidney injury, asymmetric edema to BLE, COPD and IDDM, therapeutic INR. Patient presents with clinical signs and symptoms consistent with dx, as demonstrated by the following impairment level findings: Decreased functional activity tolerance, decreased (B) UE strength, decreased functional mobility, decreased gross and fine motor control of (B) UE. Impairments are contributing to the following functional limitations: Decreased standing tolerance, decreased LE dressing, Decreased LE bathing, SOB limiting pts functional (I) in ADL/IADL routines. AMPAC score 23 Patient is assessed as a Low 20504 complexity based on the following: History: see above Examination: see functional limitations as noted above Presentation: evolving Decision Making: AMPAC score 23 GOALS Goals x1 week 1. Transfers (I) 2. Dressing (I) 3. Bathing sitting in chair (I) 4. Toileting on toilet (I) 5. Eating (I) PLAN OF CARE/TREATMENT PLAN: 1x/day, 5 days/ week x 1week Initiate Occupational Therapy Services for bathing, dressing, grooming, toileting, eating, transfer training. DISCHARGE RECOMMENDATIONS: SB1 program for increased functional (I) in his ADL/IADL routines with goal to transition home when medically cleared per MD. TREATMENT TIME/MINUTES/CODES 55021, 50746, 25 minutes (07:20) Carmen Gurrola OTR/[facility] [place]
[2019-11-16] MEDS: Normal Saline Flush 10 ML SYR IVP (08:40)
[2019-11-16 08:42] VITALS: PULSE 64
[2019-11-16] MEDS: Digoxin 0.125 MG TAB PO (08:42)
[2019-11-16] MEDS: Bumetanide 1 MG TAB PO ×2 (08:43→17:14)
[2019-11-16] MEDS: predniSONE 5 MG TAB PO (08:43)
[2019-11-16] MEDS: Allopurinol 300 MG TAB PO (08:43)
[2019-11-16] MEDS: Metoprolol 25 MG TAB 37.5 MG PO ×2 (08:43→20:56)
[2019-11-16] MEDS: Pantoprazole 40 MG TABCR PO (08:43)
[2019-11-16] MEDS: DULoxetine 30 MG CAP PO (08:44)
[2019-11-16] MEDS: Insulin Aspart 300 UNITS/3 ML PEN SC ×4 (08:50→20:58)
[2019-11-16 11:08] LABS: INR 1.7 (0.9-1.1); Prothrombin Time 16.5 sec (9.3-11.0)
--- NOTE | 2019-11-16 11:41 | CMPROGNOTE_ITS ---
- If Service Date Differs Date of service: 11/16/19 Time of Service: 11:41 Care Management Progress Note S/O: CM met with Srini and his daughter, Juju today. Juju will be home from vacation late on Saturday, and has agreed to cotton picker operator Srini to return him home on Saturday morning. Srini is in agreement with this plan. He stated that he is feeling much better- he appears to be in good spirits today. He is engaging more with CM than he was last week. Per reports, he is doing well with PT and OT, and is projected to meet his goals within the time frame of his discharge plan. CM will continue to follow. A: Irineo is a 79 year old male admitted to [facility] on 10/28/19 for PNA, CHF. P: Irineo remains on SWB 1 today to gain strength and independence with his ADL's prior to returning home. His short term rehab is planned to last for 7-10 days depending on the outcome of his treatment, with an anticipated discharge date of 11/22/19. His daughter Juju will be his visitor allowed during this stay. Once he is ready for discharge, Juju will drive him home and will set up any additional private care needed in the home. CM will coordinate RN, PT, OT, WAREHOUSE CHECKER for him once he is ready for discharge. CM will continue to follow and support discharge planning considerations.
--- NOTE | 2019-11-16 13:49 | PT.INTREAT ---
Date of service: 11/16/19 Time of Service: 10:00 PT Notes Visit Reasons: SWINGBED Inpatient Physical Therapy Treatment Note [facility] Date: 11/16/2019 SUBJECTIVE: Irineo states he is feeling better. OBJECTIVE: [] BED MOBILITY/TRANSFERS Supine-sit: SBA Sit-supine: SBA Sit-stand: SBA Stand-sit: SBA GAIT Assistive Device: FWW Weight bearing: full Assist: SBA Distance: 160'x2 in am and again in pm. Deviation: cues for longer stride length. He deviated to the right with walker today, but his left hand was bothering him a bit, therefore was only managing his walker with left hand causing the deviation. THEREX: limited LE strengthening. Added in balance ex with feet together and looking multidirectional. See flowsheet. ASSESSMENT: tolerated session well. Needs to continue to work on his balance and stability PLAN: continue with PT POC. TREATMENT CODE/TIME: 30 min in am, 25 min in pm [id number]
[2019-11-16 15:10] VITALS: BP 111/76; PULSE 69; RESP 19; TEMP 36.7; O2SAT 95
[2019-11-16] MEDS: Lidocaine 5% Patch 2 PATCH TP (17:13)
[2019-11-16 19:24] VITALS: BP 120/75; PULSE 73; RESP 18; TEMP 36.9; O2SAT 96
[2019-11-16] MEDS: rOPINIRole 0.5 MG TAB PO (20:56)
[2019-11-16] MEDS: Simvastatin 20 MG TAB PO (20:56)
[2019-11-16] MEDS: Polyethylene Glycol 3350 17 GM PACKET PO (20:57)
[2019-11-16] MEDS: Insulin Glargine 300 UNITS/3 ML PEN 10 UNITS SC (20:58)
[2019-11-16] MEDS: Normal Saline Flush 10 ML SYR 20 ML IVP (20:59)
[2019-11-16] MEDS: Warfarin 1 MG TAB PO (21:02)
[2019-11-16] MEDS: Acetaminophen 325 MG TAB PO (21:14)
[2019-11-16 23:07] VITALS: BP 99/57; PULSE 69; RESP 18; TEMP 36.8; O2SAT 95
[2019-11-17] MEDS: Nystatin 500000 UNITS/5 ML SUSP 5ML CUP PO ×2 (06:41→14:17)
[2019-11-17] MEDS: LIDOCAINE Patch Removal TP (06:42)
[2019-11-17 07:28] LABS: INR 1.6 (0.9-1.1); Prothrombin Time 16.1 sec (9.3-11.0)
[2019-11-17 07:30] VITALS: BP 114/55; PULSE 64; RESP 19; TEMP 35.3; O2SAT 97
[2019-11-17] MEDS: Normal Saline Flush 10 ML SYR IVP (07:52)
[2019-11-17] MEDS: Bumetanide 1 MG TAB PO ×2 (07:53→16:57)
[2019-11-17 07:54] VITALS: PULSE 65
[2019-11-17] MEDS: Digoxin 0.125 MG TAB PO (07:54)
[2019-11-17] MEDS: predniSONE 5 MG TAB PO (07:54)
[2019-11-17] MEDS: Allopurinol 300 MG TAB PO (07:54)
[2019-11-17] MEDS: Pantoprazole 40 MG TABCR PO (07:55)
[2019-11-17] MEDS: Metoprolol 25 MG TAB 37.5 MG PO ×2 (07:55→20:09)
[2019-11-17] MEDS: DULoxetine 30 MG CAP PO (07:55)
--- NOTE | 2019-11-17 08:05 | OTTR_ITS ---
Date of service: 11/17/19 Time of Service: 07:35 Occupational Therapy Notes Occupational Therapy Inpatient Treatment Note Date: 11/17/19 PRECAUTIONS: Fall, Standard, DNR/DNI SUBJECTIVE: Pt was sitting in chair when OT arrived, he was agreeable to OT session and reports that he is waiting for breakfast. OBJECTIVE: PAIN: no c/o pain FUNCTIONAL MOBILITY Sit-stand: (S) with slight LOB in static standing position Stand-sit: (S) Chair- Bathroom : SBA, FWW Bathroom- Chair: SBA, FWW BATHING: standing at sink with FWW and min vc for support for balance Upper Body: (I) face, (B) UE, abdomen Lower Body: Pt denies performance at todays session DRESSING: standing at sink with FWW Upper Extremity: (I) don and doffing t-shirt Lower Extremity: standing in front of chair with FWW, min (A) don and doffing pants. GROOMING: Sitting in chair, (I) with brushing hair TOILETING: NT EATING: NT ASSESSMENT/PLAN: Pt was an active participant in todays session, he is able to demonstrate increased functional (I) in his ADL/IADL routines. He did have a slight LOB when performing sit-stand and was able to self correct with min (A). Standing at sink he tolerated well. He had no pain or pain behaviors throughout session. He did demonstrate slight fatigue when performing bathing routine in the standing position. OT will continue to monitor pts response to todays session and progress towards functional (I) in his ADL/IADL routines. TREATMENT CODES/TIME: [id number], 30 minutes (07:35) Carmen Gurrola OTR/[facility]
[2019-11-17] MEDS: Ipratropium/Albuterol 4 GM 120 PUFF INH IH ×4 (08:18→20:19)
[2019-11-17] MEDS: Normal Saline Flush 10 ML SYR 20 ML IVP ×2 (09:10→20:14)
--- NOTE | 2019-11-17 09:50 | W.NUTRFU ---
Date of service: 11/17/19 Time of Service: 09:51 Nutritional Follow up NOTE: Srini continues to meet nutrient and fluid needs by mouth, weight stable. Continues on sliding scale insulin with adequate control. No new nutritional recommendations at this time. Time Spent in Nutritional Counseling and Treatment: 0 time spent face to face
[2019-11-17] MEDS: Insulin Aspart 300 UNITS/3 ML PEN SC ×3 (11:52→22:17)
--- NOTE | 2019-11-17 12:28 | PT.INTREAT ---
Date of service: 11/17/19 Time of Service: 12:28 PT Notes Visit Reasons: SWINGBED Inpatient Physical Therapy Treatment Note [facility] Date: 11/17/19 PRECAUTIONS: Fall, activity as tolerated SUBJECTIVE: Irineo appears to be in good spirits today, he is agreeable to participating in PT. OBJECTIVE: PAIN: No complaints of pain BED MOBILITY/TRANSFERS Supine-sit: I with HOB flat Sit-supine: I with HOB flat Sit-stand: S Stand-sit: S GAIT Assistive Device: FWW Weight bearing: Full Assist: SBA Distance: 160' x2 in a.m., in p.m. Deviation: Cueing for increased step length and yolanda, seated rest x1 THEREX: Patient completed functional mhz-by-[id number] exercise x10 and resisted bicep curls with 2# hand weights in a.m. NEURO RE-ED: Patient completed a static and dynamic balance retraining program, including standing marches, trunk rotation, cervical flexion/extension/rotation, functional [id number], shoulder flexion, and shoulder abduction activities without UE support, with SBA for safety. ASSESSMENT: Patient tolerated session well with some complaint of increased fatigue. Patient continues to require cueing for increased step length and yolanda. Patient would benefit from continued gait training for improved gait mechanics as well as global strengthening for improved mobility. PLAN: Continue with PTs POC TREATMENT CODE/TIME: Session 1: 25 minutes; 73147, [id number] Session 2: 20 minutes; [id number]
[2019-11-17 15:00] VITALS: BP 109/75; PULSE 72; RESP 18; TEMP 36.3; O2SAT 96
[2019-11-17] MEDS: Lidocaine 5% Patch 2 PATCH TP (16:58)
[2019-11-17 19:53] VITALS: BP 103/75; PULSE 63; RESP 18; TEMP 35.7; O2SAT 92
[2019-11-17] MEDS: Polyethylene Glycol 3350 17 GM PACKET PO (20:08)
[2019-11-17] MEDS: Simvastatin 20 MG TAB PO (20:08)
[2019-11-17] MEDS: rOPINIRole 0.5 MG TAB PO (22:15)
[2019-11-17] MEDS: Insulin Glargine 300 UNITS/3 ML PEN 10 UNITS SC (22:16)
[2019-11-18 04:07] VITALS: BP 129/64; PULSE 65; RESP 18; TEMP 36.7; O2SAT 97
[2019-11-18] MEDS: LIDOCAINE Patch Removal TP (05:21)
[2019-11-18 07:29] LABS: INR 1.6 (0.9-1.1); Prothrombin Time 15.9 sec (9.3-11.0)
--- NOTE | 2019-11-18 07:50 | OTTR_ITS ---
Date of service: 11/18/19 Time of Service: 07:20 Occupational Therapy Notes Occupational Therapy Inpatient Treatment Note Date: 11/18/19 PRECAUTIONS: Fall, Standard, DNR/DNI SUBJECTIVE: Pt was lying in bed when OT arrived. He reports that he slept well last night and has been able to move more. OBJECTIVE: PAIN: no c/o pain FUNCTIONAL MOBILITY Rolling L/R: (I) Supine-sit: (I) Sit-stand: (S) Bed-Chair: (S) DRESSING: Lower Extremity: Sitting in chair (I) with don and doffing socks with ideal technique. GROOMING: Sitting in chair (I) with brushing hair. Therapeutic Activities [id number]: OT educated and discussed with pt energy conservation techniques, use of adaptive equipment and performance of ADLs in modified manner to decreased SOB and increased performance time. ASSESSMENT/PLAN: Pt is progressing with his functional (I) in his ADL/IADL routines. Pt states that he would be interested in services as well as receptive to meals on wheels if available. He has had both in the past and feels that they were helpful with his transition home from hospital setting. TREATMENT CODES/TIME: 23522p1, 30 minutes (7:20) Carmen Gurrola, OTR/L [facility]
[2019-11-18 08:00] VITALS: BP 110/68; PULSE 65; RESP 19; TEMP 36.5; O2SAT 95
[2019-11-18] MEDS: Ipratropium/Albuterol 4 GM 120 PUFF INH IH ×4 (08:02→19:23)
[2019-11-18 09:43] VITALS: PULSE 65
[2019-11-18] MEDS: Allopurinol 300 MG TAB PO (09:43)
[2019-11-18] MEDS: Digoxin 0.125 MG TAB PO (09:43)
[2019-11-18] MEDS: predniSONE 5 MG TAB PO (09:43)
[2019-11-18] MEDS: DULoxetine 30 MG CAP PO (09:43)
[2019-11-18] MEDS: Pantoprazole 40 MG TABCR PO (09:44)
[2019-11-18] MEDS: Bumetanide 1 MG TAB PO ×2 (09:44→15:37)
[2019-11-18] MEDS: Normal Saline Flush 10 ML SYR 20 ML IVP ×2 (09:45→19:25)
[2019-11-18] MEDS: Acetaminophen 325 MG TAB PO (09:54)
[2019-11-18] MEDS: Metoprolol 25 MG TAB 37.5 MG PO ×2 (10:37→19:24)
--- NOTE | 2019-11-18 10:37 | INPN_ITS ---
Date of service: 11/18/19 Time of Service: 09:45 PT Notes Visit Reasons: SWINGBED Date: 11/18/19 Treatment Dates: 11/12/2019 - 11/18/2019 Referring Doctor: Dayton Muñoz MD PT Orders: PT CONSULT: Limited ability Precautions: Fall. Standard. Activity as tolerated. Patient Profile/Admitting Diagnosis: Irineo has been seen for PT intervention under swing bed level of care for 9 sessions over the past 7 days. He originally presented to the ED on a 10/27/2019 with a chief complaint of increasing shortness of breath that started 2 days prior to admission. Patient was diagnosed with acute on chronic combined systolic and diastolic CHF with EF of 20-25%, right lower lobe pneumonia, elevated troponin, acute kidney injury, asymmetric edema to BLE, COPD and IDDM, therapeutic INR and ambulatory dysfunction with referral to services to address functional mobility decline. He medically stabilized and transitioned to Swing Bed, where he had made continued gains in mobility. PMHX: Medical History Asthma (Chronic) Atrial fibrillation (Chronic) Bronchiectasis (Acute 04/13/16) Chronic combined systolic and diastolic CHF (congestive heart failure) (Acute) Chronic fatigue (Acute) Dilated idiopathic cardiomyopathy (Chronic) did not tolerate entresto. 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 Cataracts bilaterally b. Inguinal hernia LEFT HEART CARDIAC CATH Pacemaker (Acute) Repair of inguinal hernia left Subjective: rIineo states that he has been walking with nursing throughout the day. Objective: General Observation: No lines. Resting in chair with nursing present at initiation of session. Mental Status: Alert and oriented x 4 Pain: None reported ROM: Right Upper Extremity: Shoulder Flexion WFL. Shoulder abduction WFL. Elbow flexion WFL. Wrist flexion WFL. Opening and closing of hand WFL. Left Upper Extremity: Shoulder Flexion WFL. Shoulder abduction WFL. Elbow flexion WFL. Wrist flexion WFL. Opening and closing of hand WFL. Right Lower Extremity: Hip flexion WFL. Hip abduction WFL. Knee flexion WFL. Ankle dorsiflexion WFL. Ankle plantarflexion WFL. Left Lower Extremity: Hip flexion WFL. Hip abduction WFL. Knee flexion WFL. Ankle dorsiflexion WFL. Ankle plantarflexion WFL. Strength: Right Upper Extremity: Shoulder flexors 4/5. Shoulder abductors 4/5. Elbow flexors 4/5. Elbow extensors 4/5. Senior Support Analyst strong. Left Upper Extremity: Shoulder flexors 4/5. Shoulder abductors 4/5. Elbow flexors 4/5. Elbow extensors 4/5. Senior Support Analyst strong. Right Lower Extremity: Hip flexors 4+/-5. Hip abductors 4-/5. Knee flexors 4/5. Knee extensors 4+/5. Ankle dorsiflexors 4+/5. Ankle plantarflexors 4-/5. Left Lower Extremity:Hip flexors 4+/5. Hip abductors 4-/5. Knee flexors 4/5. Knee extensors 4+/5. Ankle dorsiflexors 4+/5. Ankle plantarflexors 4-/5. Sensation: Intact as to pain and pressure on bilateral lower extremities. Bed Mobility/Transfers: Sit to supine: independent supine-sit: independent Sit to stand: supervision Stand to sit Supervision Bed to chair SBA with FWW Chair to bed SBA with FWW Gait: Patient ambulates 300' with FWW and supervision only. He demonstrates shuffling gait. Stairs: Patient completed therapeutic stairs, ascending and descending 4 step x 6 and 6 step x 4 with bilat rails and CGA. THERA EX: Patient was instructed in a progressed therex program for LE strengthening, balance retraining, and improved cardiovascular endurance. Worked on functional LE strengthening with sit-stand exercises and toe taps to 4 step. Full program can be found noted in flowsheet. Balance: Static Sitting: Normal Dynamic Sitting: Normal Static Standing: good Dynamic Standing: Fair Special Tests: 4-Position Balance Test: 05/16 (75% deficit) Elias Balance Test: /, placing patient in high fall risk category (see scanned documents for copy of full test performance) Mobility Limitations Standardized Measure [facility]-PAC 6 clicks Basic Mobility Inpatient Short Form: Raw Score: 21 CMS Score: 29% deficit Informed Consent/Education: Patient instructed in purpose of PT consult and plan of care. Assessment: Irineo has participated in 9 sessions of skilled PT intervention over the past 7 days. He's made significant gains in his independence with transfers and his activity tolerance. He continues to demonstrate balance deficits, with Elias Balance Test scores placing him in a high fall risk category. He will benefit from continued PT intervention on Swing Bed status, with recommendation of continued PT intervention via services upon return home. Goals: Goals X1 week 1. Supine-Sit independent (met) 2. Sit-Supine independent(met) 3. Sit-Stand independent (progressing toward) 4. Stand-Sit independent(progressing toward) 5. Bed-Chair independent(progressing toward) 6. Chair-Bed independent(progressing toward) 7. Independent gait on level surface with use of least restrictive device for at least 300 feet without report of pain nor dyspnea (progressing toward) 8. Independent stair negotiation while holding onto bilateral rails for at least 10 steps without report of pain nor dyspnea(progressing toward) 9. Independent with home exercise program(progressing toward) 10. Good static and dynamic standing balance/tolerance(progressing toward) DISCHARGE RECOMMENDATIONS: Continue with skilled PT services under SB1.Decrease frequency of PT sessions to 1 session per day, with encouragement to continue walking with assistance from nursing. TREATMENT CODE/TIME: 38795 x2; 35 minutes (9:45-10:20) Agnieszka Wahl, PT, DPT [facility]
[2019-11-18] MEDS: Insulin Aspart 300 UNITS/3 ML PEN SC ×3 (11:54→21:15)
--- NOTE | 2019-11-18 12:56 | CMACTNOTE_ITS ---
- If Service Date Differs Date of service: 11/18/19 Time of Service: 12:56 Care Management Activity Note S/O: Irineo was sitting up in his chair when CM met with him. He stated that he is doing well. He continues to work with PT and OT, gaining strength and independence with ADL's and working towards his discharge goals. His discharge plan is to return home on Saturday if goals are met. CM met with Juju today, who stated that she has contacted his family independence case manager for LT NED. CM advised that his family independence case manager in the community will be able to obtain any medical equipment needed to make his home safe and accessible. CM contacted to inform them of the plan for discharge, as he will resume his HH PT, and add RN, OT and PEDIATRICS TEACHER to help navigate his NED benefits and be successful at home. Irineo stated that he his needs are being met at [facility] and he is pleasant and engaged in conversation. CM will continue to follow. A: Irineo is a 79 year old male admitted to [facility] on 10/28/19 for PNA, CHF. P: Irineo remains on SWB 1 today to gain strength and independence with his ADL's prior to returning home. His short term rehab is planned to last for 7-10 days depending on the outcome of his treatment, with an anticipated discharge date of 11/22/19. His daughter Juju will be his visitor allowed during this stay. Once he is ready for discharge, Juju will drive him home and will set up any additional private care needed in the home. CM will coordinate RN, PT, OT, PEDIATRICS TEACHER for him once he is ready for discharge. CM will continue to follow and support discharge planning considerations.
--- NOTE | 2019-11-18 15:21 | CHAPLAIN ---
Srini was sitting up in a chair when I visited. He is reserved in conversation, but said he is looking forward to going home this weekend. A family member has been visiting every other day or so, he said.
[2019-11-18 16:32] VITALS: BP 100/65; PULSE 69; RESP 18; TEMP 36.5; O2SAT 95
[2019-11-18] MEDS: Lidocaine 5% Patch 2 PATCH TP (17:22)
[2019-11-18] MEDS: Polyethylene Glycol 3350 17 GM PACKET PO (19:23)
[2019-11-18] MEDS: Simvastatin 20 MG TAB PO (19:24)
[2019-11-18] MEDS: Warfarin 1 MG TAB 2 MG PO (19:31)
[2019-11-18 20:02] VITALS: RESP 18; O2SAT 97
[2019-11-18] MEDS: rOPINIRole 0.5 MG TAB PO (21:13)
[2019-11-18] MEDS: Insulin Glargine 300 UNITS/3 ML PEN 10 UNITS SC (21:14)
[2019-11-19 03:30] VITALS: BP 98/56; PULSE 64; RESP 17; TEMP 36.7; O2SAT 95
[2019-11-19] MEDS: LIDOCAINE Patch Removal TP (05:10)
[2019-11-19 07:17] VITALS: BP 121/76; PULSE 64; RESP 18; TEMP 37; O2SAT 95
[2019-11-19] MEDS: Bumetanide 1 MG TAB PO ×2 (07:32→16:04)
[2019-11-19] MEDS: Pantoprazole 40 MG TABCR PO (07:32)
[2019-11-19 07:40] LABS: Prothrombin Time 19.7 sec (9.3-11.0)
[2019-11-19 07:44] VITALS: PULSE 62
[2019-11-19] MEDS: Digoxin 0.125 MG TAB PO (07:44)
[2019-11-19] MEDS: DULoxetine 30 MG CAP PO (07:44)
[2019-11-19] MEDS: Polyethylene Glycol 3350 17 GM PACKET PO ×2 (07:44→20:06)
[2019-11-19] MEDS: predniSONE 5 MG TAB PO (07:46)
[2019-11-19] MEDS: Allopurinol 300 MG TAB PO (07:47)
[2019-11-19] MEDS: Metoprolol 25 MG TAB 37.5 MG PO ×2 (07:47→20:04)
[2019-11-19] MEDS: Normal Saline Flush 10 ML SYR 20 ML IVP ×2 (07:48→20:07)
--- NOTE | 2019-11-19 07:48 | OTTR_ITS ---
Date of service: 11/19/19 Time of Service: 07:35 Occupational Therapy Notes Occupational Therapy Inpatient Treatment Note Date: 11/19/19 PRECAUTIONS: Fall, Standard, DNR/DNI SUBJECTIVE: Pt was sitting in chair when OT arrived. He was agreeable to OT session reporting that he is feeling ok today. OBJECTIVE: PAIN:no c/o pain FUNCTIONAL MOBILITY Sit-stand: (I) Stand-sit: (I) Bathroom-Chair: (S) Chair-Bathroom : (S) BATHING: Standing at sink with FWW for support in front of pt Upper Body: (I) washing face and hands. GROOMING: Standing at sink with FWW (I) with brushing teeth with ideal fine motor control and (B) hand use to open toothpaste, hand to mouth translation and performance of teeth brushing (I). Sitting in chair (I) with brushing hair. ASSESSMENT/PLAN: Pt is making significant gains in terms of his ADLs. He is presenting with decreased functional activity tolerance but is able to perform with increased (I). TREATMENT CODES/TIME: 29900, 10 minutes (07:35) Carmen Gurrola, OTR/L [facility]
[2019-11-19] MEDS: Ipratropium/Albuterol 4 GM 120 PUFF INH IH ×4 (08:05→20:04)
[2019-11-19 09:21] LABS: Abs Immature Grans 0.04 k/cumm (0.0-0.09); Absolute Basophil Count 0.04 k/cumm (0.0-0.2); Absolute Eosinophil Count 0.26 k/cumm (0.0-0.7); Absolute Monocyte Count 1.19 k/cumm (0.11-0.7); Basophils % 0.3; Eosinophils % 2.2; HCT 45.1 % (40.0-50.0); HGB 15.1 g/dL (13.5-17.5); Immature Grans % 0.3 %; Lymphocytes % 14.1; Mean Corp. HGB Concentration 33.5 g/dL (32.0-36.0); Mean Corpuscular Hemoglobin 35.3 pg (27.0-33.0); Mean Corpuscular Volume 105.4 fL (80-95); Mean Platelet Volume 11.7 fL (8.0-11.0); Monocytes % 9.9; Neutrophils % 73.2; Platelet Count 153 x1000/uL (130-400); RBC 4.28 m/cumm (4.50-6.00); RBC Distribution Width 13.8 % (11.8-14.1); White Blood Cell Count 12.03 k/cumm (4.4-10.8)
[2019-11-19 09:22] LABS: Absolute Neutrophil Count 8.81 k/cumm (1.2-6.7)
[2019-11-19 09:24] LABS: Anion Gap 8.6 mmol/L (3-11); BUN 36 mg/dL (7-18); CO2 32.4 mmol/L (21.0-32.0); CREATININE 1.31 mg/dL (0.70-1.30); Calcium 8.7 mg/dL (8.5-10.1); Chloride 95 mmol/L (98-107); Estimated GFR 53.06 (mL/min/1.73m2); Glucose 111 mg/dL (74-106); Magnesium 1.9 mg/dL (1.8-2.4); Potassium 4.3 mmol/L (3.5-5.1); Sodium 136 mmol/L (136-145)
--- NOTE | 2019-11-19 09:27 | W.PM.PROGNOT ---
Date of Service Date of service: 11/19/19 Time of Service: 09:27 Assessment and Plan Assessment and plan (1) Acute on chronic combined systolic (congestive) and diastolic (congestive) heart failure: Status: Acute Assessment and plan: stable, continue low sodium diet, bumex daily (2) AF (paroxysmal atrial fibrillation): Status: Chronic Assessment and plan: rate controlled Cont coumadin for AC. Cont metoprolol and digoxin for rate control. (3) Diabetes mellitus type 2 with neurological manifestations: Status: Acute Assessment and plan: no changes Basal/bolus insulin Consistent carb diet. Monitor (4) Frailty syndrome in geriatric patient: Status: Chronic Assessment and plan: PT/OT (5) Discharge planning issues: Status: Acute Assessment and plan: case management following, will discharge home with appropriate services once he has met full rehab potential. case discussed with Dr Gar who is in agreement Subjective Subjective Patient reports: no new complaints Interval history since last seen: patient doing well, eating and drinking, bowels and bladder functioning well, working with physical therapy and slowly progressing. Exam Const General: cooperative, healthy appearing, comfortable and no acute distress Nutritional Appearance: average body habitus Orientation: alert, awake and oriented x3 HENMT Head: normal to inspection, normocephalic and atraumatic Mouth: oral mucosae normal Resp Effort & Inspection: normal respiratory effort Auscultation: clear to auscultation bilaterally Cardio Rate: regular rate Rhythm: abnormal rhythm irregularly irregular GI Inspection: normal to inspection Palpation: soft Auscultation: normal bowel sounds Skin Lesions: no lesions Rashes: no rashes Neuro General: patient alert and patient awake Cranial Nerves: CN's II-XI intact bilaterally Extrem General: normal to inspection and full ROM Objective Objective Clinical Data: Abnormal lab results 11/19/19 11/19/19 11/19/19 Range/Units 06:05 06:05 06:05 WBC 12.03 H (4.4-10.8) k/cumm RBC 4.28 L (4.50-6.00) m/cumm MCV 105.4 H (80-95) fL MCH 35.3 H (27.0-33.0) pg MPV 11.7 H (8.0-11.0) fL Absolute Neutrophils 8.81 H (1.2-6.7) k/cumm Absolute Monocytes 1.19 H (0.11-0.7) k/cumm PT 19.7 H (9.3-11.0) sec INR 2.0 H (0.9-1.1) Chloride 95 L (98-107) mmol/L Carbon Dioxide 32.4 H (21.0-32.0) mmol/L BUN 36 H (7-18) mg/dL Creatinine 1.31 H (0.70-1.30) mg/dL Glucose 111 H (74-106) mg/dL Vital Signs Temperature 37.0 C 11/19/19 07:17 Temperature Source Temporal Artery Scan 11/19/19 07:17 Pulse 62 11/19/19 07:44 Pulse Rhythm Regular 11/19/19 06:12 Respiratory Rate 18 11/19/19 07:17 Respiratory Effort 11/19/19 06:12 Respiratory Depth Normal 11/19/19 06:12 Respiratory Pattern Normal 11/19/19 06:12 Blood Pressure 121/76 11/19/19 07:17 Pulse Oximetry 95 11/19/19 07:17 Oxygen Delivery Method Room Air 11/19/19 07:17 Oxygen Flow Rate 0 11/19/19 07:17 Pain Level 0 11/19/19 07:17 Comment 11/17/19 15:00 Intake & Output 11/18/19 11/18/19 11/19/19 11:59 23:59 11:59 Intake Total 670 / 940 270 / 940 450 / 450 Output Total 800 / 1550 750 / 1550 225 / 225 Balance -130 / -610 -480 / -610 225 / 225 Weight 80.1 kg 80.2 kg Intake: IV Oral 650 / 900 250 / 900 450 / 450 Output: Urine 800 / 1550 750 / 1550 225 / 225 Other: Urine Color Yellow Yellow Yellow Urine Appearance Clear Clear Clear Urine Odor Normal None Normal Voiding Methods Urinal Urinal Urinal Laboratory Results WBC 12.03 k/cumm (4.4-10.8) H 11/19/19 06:05 RBC 4.28 m/cumm (4.50-6.00) L 11/19/19 06:05 Hgb 15.1 g/dL (13.5-17.5) 11/19/19 06:05 Hct 45.1 % (40.0-50.0) 11/19/19 06:05 MCV 105.4 fL (80-95) H 11/19/19 06:05 MCH 35.3 pg (27.0-33.0) H 11/19/19 06:05 MCHC 33.5 g/dL (32.0-36.0) 11/19/19 06:05 RDW 13.8 % (11.8-14.1) 11/19/19 06:05 Plt Count 153 x1000/uL (130-400) 11/19/19 06:05 MPV 11.7 fL (8.0-11.0) H 11/19/19 06:05 Immature Gran % 0.3 % 11/19/19 06:05 Neutrophils % 73.2 11/19/19 06:05 Lymphocytes % 14.1 11/19/19 06:05 Monocytes % 9.9 11/19/19 06:05 Eosinophils % 2.2 11/19/19 06:05 Basophils % 0.3 11/19/19 06:05 Absolute Neutrophils 8.81 k/cumm (1.2-6.7) H 11/19/19 06:05 Absolute Lymphocytes 1.70 k/cumm (1.2-3.4) 11/19/19 06:05 Absolute Monocytes 1.19 k/cumm (0.11-0.7) H 11/19/19 06:05 Absolute Eosinophils 0.26 k/cumm (0.0-0.7) 11/19/19 06:05 Absolute Basophils 0.04 k/cumm (0.0-0.2) 11/19/19 06:05 PT 19.7 sec (9.3-11.0) H 11/19/19 06:05 INR 2.0 (0.9-1.1) H 11/19/19 06:05 Sodium 136 mmol/L (136-145) 11/19/19 06:05 Potassium 4.3 mmol/L (3.5-5.1) 11/19/19 06:05 Chloride 95 mmol/L (98-107) L 11/19/19 06:05 Carbon Dioxide 32.4 mmol/L (21.0-32.0) H 11/19/19 06:05 Anion Gap 8.6 mmol/L (3-11) 11/19/19 06:05 BUN 36 mg/dL (7-18) H 11/19/19 06:05 Creatinine 1.31 mg/dL (0.70-1.30) H 11/19/19 06:05 Estimated GFR/1.73 m2 53.06 (mL/min/1.73m2) 11/19/19 06:05 Glucose 111 mg/dL (74-106) H 11/19/19 06:05 Calcium 8.7 mg/dL (8.5-10.1) 11/19/19 06:05 Magnesium 1.9 mg/dL (1.8-2.4) 11/19/19 06:05
[2019-11-19] MEDS: Insulin Aspart 300 UNITS/3 ML PEN SC ×3 (11:48→22:07)
[2019-11-19 15:21] VITALS: BP 104/75; PULSE 67; RESP 18; TEMP 36.5; O2SAT 92
[2019-11-19] MEDS: Lidocaine 5% Patch 2 PATCH TP (18:14)
[2019-11-19] MEDS: Simvastatin 20 MG TAB PO (20:04)
[2019-11-19] MEDS: Warfarin 1 MG TAB 2 MG PO (20:09)
[2019-11-19 21:02] VITALS: BP 109/76; PULSE 60; RESP 18; TEMP 36; O2SAT 94
[2019-11-19] MEDS: rOPINIRole 0.5 MG TAB PO (22:07)
[2019-11-19] MEDS: Insulin Glargine 300 UNITS/3 ML PEN 10 UNITS SC (22:08)
[2019-11-20] MEDS: LIDOCAINE Patch Removal TP (05:53)
[2019-11-20 07:41] VITALS: BP 112/73; PULSE 80; RESP 20; TEMP 36.4; O2SAT 94
[2019-11-20 07:44] LABS: Prothrombin Time 21.2 sec (9.3-11.0)
[2019-11-20] MEDS: Bumetanide 1 MG TAB PO ×2 (07:44→15:30)
[2019-11-20 07:45] VITALS: PULSE 80
[2019-11-20] MEDS: Allopurinol 300 MG TAB PO (07:45)
[2019-11-20] MEDS: Pantoprazole 40 MG TABCR PO (07:45)
[2019-11-20] MEDS: Digoxin 0.125 MG TAB PO (07:45)
[2019-11-20] MEDS: DULoxetine 30 MG CAP PO (07:46)
[2019-11-20] MEDS: Metoprolol 25 MG TAB 37.5 MG PO ×2 (07:46→20:08)
[2019-11-20] MEDS: predniSONE 5 MG TAB PO (07:46)
[2019-11-20] MEDS: Normal Saline Flush 10 ML SYR 20 ML IVP ×2 (07:48→20:10)
[2019-11-20] MEDS: Normal Saline Flush 10 ML SYR IVP (07:49)
[2019-11-20 07:54] LABS: INR 2.1 (0.9-1.1)
--- NOTE | 2019-11-20 08:07 | OTTR_ITS ---
Date of service: 11/20/19 Time of Service: 07:40 Occupational Therapy Notes Occupational Therapy Inpatient Treatment Note Date: 11/20/19 PRECAUTIONS: Fall, Standard, DNR/DNI SUBJECTIVE: Pt was sitting in chair when OT arrived. He was agreeable to OT session. OBJECTIVE: PAIN:no c/o pain FUNCTIONAL MOBILITY Sit-stand: (S) Stand-sit: (S) DRESSING: Upper Extremity: (I) don and doffing t-shirts with min vc Lower Extremity: (I) don and doff pants with min vc for hand stability ASSESSMENT/PLAN: Pt is demonstrating increased (I) in his ADL/IADL routines. Plan is for pt to return home when medically cleared per MD. TREATMENT CODES/TIME: 98880, 20 minutes (07:40) Carmen Gurrola OTR/[facility]
[2019-11-20] MEDS: Ipratropium/Albuterol 4 GM 120 PUFF INH IH ×4 (10:15→20:08)
--- NOTE | 2019-11-20 10:47 | PT.INTREAT ---
Date of service: 11/19/19 PT Notes Visit Reasons: SWINGBED
--- NOTE | 2019-11-20 10:50 | PT.INTREAT ---
Date of service: 11/19/19 Time of Service: 09:30 PT Notes Visit Reasons: SWINGBED Inpatient Physical Therapy Treatment Note [facility] Date: 11/19/2019 SUBJECTIVE: Irineo reports that he is very tired. He has a hard time sleeping at night due to noise from adjoining room keeps him awake. OBJECTIVE: [] BED MOBILITY/TRANSFERS pt already sitting up in recliner. Sit-stand: S Stand-sit: S GAIT Assistive Device: FWW Weight bearing: full Assist: S Distance: 300' THEREX: global LE strengthening with focus on function. Incorporated balance ex at railing as well as side stepping, and bkwd walking. See flowsheet for details. ASSESSMENT: pt only seen 1x/day. Improvements noted with walking tolerance as well as strength and functional gains. C/o left knee shaking towards end of session, denied pain. PLAN: will continue as per POC. TREATMENT CODE/TIME: 27 min. [id number], [id number].
--- NOTE | 2019-11-20 10:59 | PT.INTREAT ---
Date of service: 11/20/19 Time of Service: 09:15 PT Notes Visit Reasons: SWINGBED Inpatient Physical Therapy Treatment Note [facility] Date: SUBJECTIVE: Irineo reports that he is willing to participate with me, but admits that he does not have a lot of energy. I am just so tired. OBJECTIVE: [] BED MOBILITY/TRANSFERS Sit-stand: S Stand-sit: S GAIT Assistive Device: FWW Weight bearing: full Assist: S Distance: 260' Deviation: one seated rest break. THEREX: global LE strengthening and functional activities. Balance and coordination ex. See flowsheet for details. STAIRS: ascend/descend 3, 4 steps and 2, 6 steps using 2 rails and SBA. ASSESSMENT: C/o right knee shaking with stairs today as well as with mini squats. No complaints during ambulation. He put forth fair effort today, but did require sitting break after ex. PLAN: continue 1x/day focusing on LE strength and balance per PT POC TREATMENT CODE/TIME: 30 min. [id number], [id number].
[2019-11-20] MEDS: Insulin Aspart 300 UNITS/3 ML PEN SC ×3 (11:58→22:48)
[2019-11-20 15:35] VITALS: BP 115/75; PULSE 69; RESP 18; TEMP 36.5; O2SAT 95
[2019-11-20] MEDS: Lidocaine 5% Patch 2 PATCH TP (17:44)
[2019-11-20] MEDS: Polyethylene Glycol 3350 17 GM PACKET PO (20:08)
[2019-11-20 20:10] VITALS: BP 101/65; PULSE 70; RESP 17; TEMP 35.5; O2SAT 94
[2019-11-20] MEDS: Simvastatin 20 MG TAB PO (20:10)
[2019-11-20] MEDS: rOPINIRole 0.5 MG TAB PO (22:48)
[2019-11-20] MEDS: Insulin Glargine 300 UNITS/3 ML PEN 10 UNITS SC (22:49)
[2019-11-21] MEDS: LIDOCAINE Patch Removal TP (06:44)
[2019-11-21 07:19] VITALS: BP 108/67; PULSE 70; RESP 18; TEMP 36.6; O2SAT 97
[2019-11-21] MEDS: Allopurinol 300 MG TAB PO (08:13)
[2019-11-21 08:14] VITALS: PULSE 72
[2019-11-21] MEDS: Digoxin 0.125 MG TAB PO (08:14)
[2019-11-21] MEDS: predniSONE 5 MG TAB PO (08:14)
[2019-11-21] MEDS: Bumetanide 1 MG TAB PO ×2 (08:15→16:26)
[2019-11-21] MEDS: DULoxetine 30 MG CAP PO (08:15)
[2019-11-21] MEDS: Pantoprazole 40 MG TABCR PO (08:16)
[2019-11-21] MEDS: Metoprolol 25 MG TAB 37.5 MG PO ×2 (08:16→19:37)
[2019-11-21] MEDS: Ipratropium/Albuterol 4 GM 120 PUFF INH IH ×4 (08:18→19:37)
[2019-11-21] MEDS: Normal Saline Flush 10 ML SYR 20 ML IVP ×2 (08:21→19:39)
[2019-11-21] MEDS: Normal Saline Flush 10 ML SYR IVP (08:21)
[2019-11-21 08:37] LABS: INR 2.3 (0.9-1.1); Prothrombin Time 22.2 sec (9.3-11.0)
[2019-11-21 10:50] VITALS: BP 120/72; PULSE 69; RESP 17; TEMP 36.6; O2SAT 96
--- NOTE | 2019-11-21 11:22 | PT.INTREAT ---
PT Notes Visit Reasons: SWINGBED Inpatient Physical Therapy Treatment Note [facility] Date: 11/21/19 PRECAUTIONS:R LL PNA SUBJECTIVE: When standing pt c/o dizziness and needed to sit. OBJECTIVE: Sit-stand: SBA Stand-sit: SBA GAIT Assistive Device: FWW Weight bearing: Full Assist: SBA Distance: 260ft with a follow behind with w/c due to pt having sudden onset of dizziness during treatment. Pt's vitals were taken and WNL. Dizziness did not last long and pt thinks it was due to just waking up and then walking right after. THEREX: Pt did not want to complete his balance or strengthening today. PLAN: Cont as per PT POC. TREATMENT CODE/TIME: TAx2 (30)
[2019-11-21] MEDS: Insulin Aspart 300 UNITS/3 ML PEN SC ×3 (12:45→22:08)
[2019-11-21 15:28] VITALS: BP 113/78; PULSE 75; RESP 18; TEMP 36.6; O2SAT 95
[2019-11-21] MEDS: Lidocaine 5% Patch 2 PATCH TP (17:21)
--- NOTE | 2019-11-21 18:22 | NUR.NOTE ---
Nursing Note: I have reviewed the charting of Rebecca Hess RN. Charting is complete and thorough
[2019-11-21 19:05] VITALS: BP 109/69; PULSE 71; RESP 17; TEMP 36.5; O2SAT 96
[2019-11-21] MEDS: Polyethylene Glycol 3350 17 GM PACKET PO (19:37)
[2019-11-21] MEDS: Simvastatin 20 MG TAB PO (19:38)
[2019-11-21] MEDS: Warfarin 1 MG TAB 2 MG PO (19:47)
[2019-11-21] MEDS: Insulin Glargine 300 UNITS/3 ML PEN 10 UNITS SC (22:08)
[2019-11-21] MEDS: rOPINIRole 0.5 MG TAB PO (22:08)
[2019-11-22] MEDS: LIDOCAINE Patch Removal TP (06:24)
[2019-11-22 07:18] VITALS: BP 108/60; PULSE 68; RESP 17; TEMP 36.7; O2SAT 96
[2019-11-22] MEDS: Normal Saline Flush 10 ML SYR IVP (07:48)
[2019-11-22] MEDS: DULoxetine 30 MG CAP PO (07:49)
[2019-11-22] MEDS: predniSONE 5 MG TAB PO (07:49)
[2019-11-22] MEDS: Bumetanide 1 MG TAB PO (07:49)
[2019-11-22] MEDS: Metoprolol 25 MG TAB 37.5 MG PO (07:50)
[2019-11-22] MEDS: Pantoprazole 40 MG TABCR PO (07:50)
[2019-11-22] MEDS: Allopurinol 300 MG TAB PO (07:50)
[2019-11-22 07:53] VITALS: PULSE 70
[2019-11-22] MEDS: Digoxin 0.125 MG TAB PO (07:53)
[2019-11-22] MEDS: Ipratropium/Albuterol 4 GM 120 PUFF INH IH ×2 (07:56→11:23)
[2019-11-22 08:13] LABS: INR 2.1 (0.9-1.1); Prothrombin Time 21.2 sec (9.3-11.0)
--- NOTE | 2019-11-22 10:17 | W.PM.DS.N ---
Date of service: 11/22/19 Time of Service: : DS: Diagnosis Discharge Diagnosis (1) Acute on chronic combined systolic (congestive) and diastolic (congestive) heart failure: Start date: 11/22/19 Start time: :18 Status: Acute Asessment and Plan: stable, Low sodium diet, bumex daily (2) AF (paroxysmal atrial fibrillation): Start date: 11/22/19 Start time: 10: Status: Chronic Asessment and Plan: Rate controlled (3) Diabetes mellitus type 2 with neurological manifestations: Start date: 11/22/19 Start time: 10 Status: Chronic Asessment and Plan: no changes (4) Frailty syndrome in geriatric patient: Start date: 11/22/19 Start time: : Status: Chronic Asessment and Plan: Pt/OT, he will go home with services PT/OT Nursing and INFORMATION TECHNOLOGY ASSISTANT Discharge Plan Disposition Patient Disposition: HOME W/HOME HEALTH SERVICE Condition: Improving Discharge Details Reason For Visit: SWINGBED Admit Date/Time: 11/12/19 13:05 Admit Provider: Dayton Muñoz Attending Provider: Dayton Muñoz Primary Care Provider: Bennie Adams Hospital Course Hospital Course: This is a 79 yo male admitted on 10/28/2019 with c/o shortness of breath. He has a PMHx of NICMO/chronic combined sytolic and diastolic CHF with EF of 20-25% by echo (2017), s/p AICD, pulmonary HTN with RV dysfunction, PAF, Non-oxygen but steroid dependent COPD, asthma, bronchiectasis. He described SOA especially with laying down; onset 2 nights prior to admission. Found to have a RLL infiltrate and pulmonary edema on imaging. proBNP elevated. He was initiated on ceftriaxone and doxycycline. His troponin was 0.09 but remained flat. EKG unremarkable / paced rhythm. Diureses was initiated. Combivent, prednisone and prn albuterol initiated. Continued coumadin for AC; adjusted as needed. His PNA did not respond to the initial antibiotics. He was changed to augmentin and again did not appear to improved. He was then changed to cefepime and vancomycin and ultimately to vancomycin and Meropenem. His Cymbalta was increased. His initial depressed mood improved and he slowly showed improvement in his motivation and willingness to work with PT. He finished the prolonged course of antibiotics. His SOA and NAGEL improved significantly and he is ambulating with standby assistance in the hallway. His REI resolved.. He is ready to be discharged home. He will be discharged home with home health services INFORMATION TECHNOLOGY ASSISTANT, RN, PT/OT. He denies SOB, N/V/D CP. Home Meds and New Rx's Prescriptions: New Combivent Respimat 20-100 mcg/actuation Mist 1 puff inhalation QID Qty: 1 RF: 0 Continued (DME) Inhaler, Assist Devices [Aerochamber Mini] 1 EACH spacer 1 ea Miscellaneous PRN Qty: 1 RF: 0 digoxin 125 mcg tablet 125 mcg PO DAILY Qty: 90 RF: 3 allopurinol 300 mg tablet 300 mg PO DAILY Qty: 90 RF: 3 acetaminophen [Tylenol] 325 mg Tablet 325 mg PO Q4H PRN PRNQty: 0 RF: 0 dextrose [Glutose-15] 40 % Gel 10 gm PO DIRECTED PRNQty: 0 RF: 0 prednisone 5 mg Tablet 5 mg PO DAILY Qty: 0 RF: 0 magnesium hydroxide [Milk of Magnesia] 400 mg/5 mL Suspension 30 ml PO DAILY PRN PRNQty: 0 RF: 0 diazepam 2 mg Tablet 2 mg PO HS PRN PRN (Reason: anxiety) Qty: 0 RF: 0 simvastatin 20 mg Tablet 20 mg PO QPM Qty: 0 RF: 0 ropinirole 0.5 mg Tablet 0.5 mg PO HS Qty: 0 RF: 0 lidocaine [Lidoderm] 5 % Adhesive Patch,Medicated 2 patch topical DAILY@1800 Qty: 0 RF: 0 docusate sodium [Colace] 100 mg Capsule 100 mg PO TID PRN PRNQty: 0 RF: 0 bumetanide 1 mg Tablet 1 mg PO DAILY@08,16 Qty: 0 RF: 0 alum-mag hydroxide-simeth [Mag-Al Plus] 200-200-20 mg/5 mL Suspension 30 ml PO Q2H PRN PRNQty: 0 RF: 0 albuterol sulfate [Ventolin HFA] 90 mcg/actuation Hfa Aerosol Inhaler 2 puff inhalation Q2H PRN PRNQty: 0 RF: 0 dextrose 50 % in water (D50W) Syringe 50 gm IVP DIRECTED PRNQty: 0 RF: 0 sodium chloride 0.9 % (flush) [Monoject 0.9% Sodium Chloride] Syringe 20 ml IVP BID Qty: 0 RF: 0 insulin aspart U-100 [Novolog Flexpen U-100 Insulin] 100 unit/mL (3 mL) Insulin Pen 0 units subcut AC & HS Qty: 0 RF: 0 metoprolol tartrate 25 mg Tablet 37.5 mg PO BID Qty: 0 RF: 0 duloxetine [Cymbalta] 30 mg Capsule,Delayed Release(Dr/Ec) 30 mg PO DAILY Qty: 0 RF: 0 Sherice Protect Cream 1 applic topical PRN PRNQty: 0 RF: 0 Lantus Solostar U-100 Insulin 100 unit/mL (3 mL) Insulin Pen 10 units subcut HS Qty: 0 RF: 0 Combivent Respimat 20-100 mcg/actuation Mist 1 puff inhalation QID Qty: 0 RF: 0 Iv Access 1 ea IV DIRECTED Qty: 0 RF: 0 polyethylene glycol 3350 17 gram Powder In Packet 17 g PO BID Qty: 0 RF: 0 pantoprazole 40 mg Tablet,Delayed Release (Dr/Ec) 40 mg PO DAILY@0730 Qty: 0 RF: 0 warfarin [Coumadin] 1 mg Tablet 1 mg PO MoWeThSa@2000 Qty: 0 RF: 0 Patch Removal [Remove Patch] 0 ea topical DAILY@0600 Qty: 0 RF: 0 Discharge Instructions Instructions: Acute Kidney Injury (DC), Community Acquired Pneumonia (DC), DASH Eating Plan (DC), Diabetes and Your Skin (DC) Additional Instructions: Follow up with PCP in 1-2 weeks You have been started on a new inhaler, Combivent use 4 times a day. It has been sent to the pharmacy You will have nursing services, Physical therapy, Occupational therapy and INFORMATION TECHNOLOGY ASSISTANT at home Activity:: Activity as Tolerated Equipment/Supplies:: No Equipment Needed Diet:: Low Sodium Discharge Orders Discharge Orders: Discharge Order (Routine); Ordered 11/22/19 Ordered By: Esperanza Palma DS: Summary Status at Discharge Functional status at discharge: independent ambulation Overall status at discharge: patient is progressing back to baseline Mental Status: mental status grossly normal Speech and Movement: speech and movement normal Mood: congruent mood Affect: normal affect Exam Const General: cooperative, healthy appearing, comfortable, no acute distress and well groomed Nutritional Appearance: average body habitus Orientation: alert, awake and oriented x3 HENMT Head: normal to inspection, normocephalic and atraumatic Mouth: oral mucosae normal Eyes Sclera: sclerae normal Pupils: PERRL Resp Effort & Inspection: normal respiratory effort Auscultation: clear to auscultation bilaterally and diminished lung sounds Cardio Jugular venous pressure: no JVD Rate: regular rate Rhythm: abnormal rhythm irregularly irregular GI Inspection: normal to inspection Palpation: soft and nontender Auscultation: normal bowel sounds Skin Lesions: no lesions Rashes: no rashes Neuro General: patient alert and patient awake Cranial Nerves: CN's II-XI intact bilaterally Cognition: normal cognition Speech: speech normal Extrem General: normal to inspection, full ROM and no clubbing, cyanosis or edema Psych Appearance: grossly normal Mental Status: mental status grossly normal Speech and Movement: speech and movement normal Mood: congruent mood Affect: normal affect Attitude: cooperative DS: Data Vitals/I&O Vitals and I&O: Vital Signs Temperature 36.7 C 11/22/19 07:18 Temperature Source Tympanic 11/22/19 07:18 Pulse 70 11/22/19 07:53 Pulse Rhythm Irregular 11/22/19 04:58 Respiratory Rate 17 11/22/19 07:18 Respiratory Effort 11/22/19 04:58 Respiratory Depth Normal 11/22/19 04:58 Respiratory Pattern Normal 11/22/19 04:58 Blood Pressure 108/60 11/22/19 07:18 Pulse Oximetry 96 11/22/19 07:18 Oxygen Delivery Method Room Air 11/22/19 07:18 Oxygen Flow Rate 0 11/22/19 07:18 Pain Level 0 11/22/19 07:18 Comment 11/17/19 15:00 Intake & Output 11/21/19 11/21/19 11/22/19 11:59 23:59 11:59 Intake Total 240 / 1250 1010 / 1250 240 / 240 Output Total 200 / 725 525 / 725 Balance 40 / 525 485 / 525 240 / 240 Weight 79.8 kg 79 kg Intake: IV Oral 240 / 1230 990 / 1230 240 / 240 Output: Urine 200 / 725 525 / 725 Other: Urine Color Yellow Yellow Urine Appearance Clear Clear Urine Odor Strong Strong Voiding Methods Urinal Urinal Data Completed and Pending Labs on day of discharge: Labs from last 24 hours 11/22/19 07:16 PT 21.2 H INR 2.1 H PFSH Medical History Asthma (Chronic) Atrial fibrillation (Chronic) Bronchiectasis (Acute 04/13/16) Chronic combined systolic and diastolic CHF (congestive heart failure) (Acute) Chronic fatigue (Chronic) Dilated idiopathic cardiomyopathy (Chronic) did not tolerate entresto. 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 Cataracts bilaterally b. Inguinal hernia LEFT HEART CARDIAC CATH Pacemaker (Acute) Repair of inguinal hernia left Family History Father Heart disease Mother Heart disease Social History Smoking/Tobacco Use Status: Never Alcohol Intake: never Drug use: Never Substance use type: does not use Current gender identity: male Do you feel safe at home: Yes Do you feel safe in your relationship?: Yes
--- NOTE | 2019-11-22 10:46 | PDOC.HHF2F ---
Home Health Certification Home Health Certification: 1. Encounter Date and Reason I certify that MIAH SCHWARTZ was seen by Esperanza Palma on 11/22/19 and that I had a [id number] encounter with this patient that meets the physician face to face encounter requirements. 2. Clinical Findings Supporting Skilled Need and Homebound Status I certify that home health services are medically necessary, include either intermittent longterm and/or physical/speech therapy, and that this patient is homebound in that absences from the home require considerable and taxing effort and are infrequent or of short duration, or are attributable to the need to receive medical care. [X] (a) Attached documentation from encounter provides clinical findings supporting skilled need and homebound status (including what assistance patient requires to leave the home). The encounter with the patient was in whole, or in part, for the following medical condition, which is the primary reason for home health care: SWINGBED Care Home: Patient would benefit from nursing to help with meds and etc. Patient would benefit from CUSTOM STOCK MAKER Physical Therapy: Patient would benefit from PT for gait balance and stability Homebound: Patient is unable to leave house without assistance 3. Certification and Authentication I certify that I composed the above information based on my clinical judgement relating to this patient's medical condition and, if applicable, clinical findings communicated to me by the NPP or inpatient physician who performed the Home Health Referral. All further orders will be obtained through _Bryan Ford (Community Based Physician - PCP)
[2019-11-22] MEDS: Insulin Aspart 300 UNITS/3 ML PEN SC (12:33)
--- NOTE | 2019-11-22 14:55 | PDOC.CMDIS ---
- If Service Date Differs Date of service: 11/22/19 Time of Service: 14:55 LACE Index Scoring Tool - Questions: Length of Stay (in days): 14 or more Acuity (Admit via E.D.?): Yes Comorbidities: Cerebrovascular Disease, Diabetes w/o Complication, Congestive Heart Failure, Chronic Pulmonary Disease E.D. Visits: 2 - Answers: Total Score: 17 Risk of Readmission: High Risk Care Management Discharge Reason for Hospitalization: Admitted to [facility] for pneumonia. Admitted to -1 for short term rehab for ambulation and strengthening Discharge Plan: Srini will be discharged home with new home health services for RN, PT,OT and CROP AND SOIL TECHNICIAN through [facility]. He will follow up with his PCP and discharge plan of care. Srini' daughter will transport him via private vehicle. Patient/Family Education Needs: Discharge plan,limitations, follow up plan, Ask Me Three. Services Needed at Discharge: Home Health Care Services
--- NOTE | 2019-11-23 10:25 | INDS_ITS ---
Date of service: 11/23/19 Time of Service: 10:26 PT Notes Visit Reasons: SWINGBED Inpatient Physical Therapy Discharge Summary Dates: 11/23/2019 Dates of Service: 11/12/2019 through 11/21/2019 This is a clinical summary of care provided on the duration of dates listed above. No charge was made in the completion of this documentation. Referring Doctor: Dayton Muñoz MD PT Orders: PT CONSULT: Limited ability Precautions: Fall. Standard. Activity as tolerated. Patient Profile/Admitting Diagnosis: Srini is a 79-year-old male who presented to the ED on a 10/27/2019 with a chief complaint of increasing shortness of br eath that started 2 days prior to admission. Patient is diagnosed with acute on chronic combined systolic and diastolic CHF with EF of 20-25%, right lower lobe pneumonia, elevated troponin, acute kidney injury, asymmetric edema to BLE, COPD and IDDM, therapeutic INR and ambulatory dysfunction with referral to services to address functional mobility decline. PMHX: Medical History Asthma (Chronic) Atrial fibrillation (Chronic) Bronchiectasis (Acute 04/13/16) Chronic combined systolic and diastolic CHF (congestive heart failure) (Acute) Chronic fatigue (Acute) Dilated idiopathic cardiomyopathy (Chronic) did not tolerate entresto. 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 Cataracts bilaterally b. Inguinal hernia LEFT HEART CARDIAC CATH Pacemaker (Acute) Repair of inguinal hernia left Subjective: NC Objective: General Observation: NC Mental Status: NC Pain: NC ROM: Right Upper Extremity: Shoulder Flexion WFL. Shoulder abduction WFL. Elbow flexion WFL. Wrist flexion WFL. Opening and closing of hand WFL. Left Upper Extremity: Shoulder Flexion WFL. Shoulder abduction WFL. Elbow flex ion WFL. Wrist flexion WFL. Opening and closing of hand WFL. Right Lower Extremity: Hip flexion WFL. Hip abduction WFL. Knee flexion WFL. Ankle dorsiflexion WFL. Ankle plantarflexion WFL. Left Lower Extremity: Hip flexion WFL. Hip abduction WFL. Knee flexion WFL. Ankle dorsiflexion WFL. Ankle plantarflexion WFL. Strength: Right Upper Extremity: Shoulder flexors 4/5. Shoulder abductors 4/5. Elbow flexors 4/5. Elbow extensors 4/5. Pediatric Intensive Physician strong. Left Upper Extremity: Shoulder flexors 4/5. Shoulder abductors 4/5. Elbow flexors 4/5. Elbow extensors 4/5. Pediatric Intensive Physician strong. Right Lower Extremity: Hip flexors 4/5. Hip abductors 4/5. Knee flexors 45. Knee extensors 4/5. Ankle dorsiflexors 4/5. Ankle plantarflexors 4/5. Left Lower Extremity:Hip flexors 4/5. Hip abductors 4/5. Knee flexors 4/5. Knee extensors 4/5. Ankle dorsiflexors 4/5. Ankle plantarflexors 4/5. Sensation: Intact as to pain and pressure on bilateral lower extremities. Bed Mobility/Transfers: Sit to supine independent Sit to stand independent with front wheeled walker Stand to sit independent with front wheeled walker Bed to chair independent with front wheeled walker Chair to bed independent with front wheeled walker Gait: 260 feet with supervision using front wheeled walker. Full weight bearing. Wheelchair follow needed as patient had sudden onset of dizziness that resolved with seated rest. Balance: Static Sitting: Normal Dynamic Sitting: Normal Static Standing: Fair Dynamic Standing: Fair Assessment: Irineo demonstrated meaningful functional gains during this episode of care as indicated and and achievement of some of the goals below. He will continue to benefit from home health PT services in order to regain prior level of function at discharge destination. Goals: Goals X1 week 1. Supine-Sit independent MET 2. Sit-Supine independent MET 3. Sit-Stand independent MET 4. Stand-Sit independent MET 5. Bed-Chair independent MET 6. Chair-Bed independent MET 7. Independent gait on level surface with use of least restrictive device for at least 300 feet without report of pain nor dyspnea NOT MET 8. Independent stair negotiation while holding onto bilateral rails for at least 10 steps without report of pain nor dyspnea NOT MET 9. Independent with home exercise program NOT MET 10. Good static and dynamic standing balance/tolerance NOT MET DISCHARGE RECOMMENDATIONS: HH PT. TREATMENT CODE/TIME: NC. Thank you very much for this referral. Beverley Cisneros PT, DPT, CLT [facility] [place], [place]
== END 2019-11-22 13:33 | disposition home health service (06) | DRG 945 ==
PROVIDERS: Internal Medicine; Admitting Provider Family Medicine; PCP Family Medicine; Visit Provider Internal Medicine
DX: R53.1 Weakness (principal); I50.23 Acute on chronic systolic (congestive) heart failure; Z73.89 Other problems related to life management difficulty; Z71.89 Other specified counseling; I48.0 Paroxysmal atrial fibrillation; Z79.01 Long term (current) use of anticoagulants; I25.10 Atherosclerotic heart disease of native coronary artery without angina pectoris; E11.42 Type 2 diabetes mellitus with diabetic polyneuropathy; I27.20 Pulmonary hypertension, unspecified; J44.9 Chronic obstructive pulmonary disease, unspecified; Z79.52 Long term (current) use of systemic steroids; I11.0 Hypertensive heart disease with heart failure
CPT/HCPCS: 36415; 80048; 94640; 97110; 97112; 97162; 97165; 97530; 97535; 99304; 99309; 99316; 83735; 85025; 85610; J3490; J7512

== ENCOUNTER 2019-11-29 23:43 | Emergency (ER) | payer MEDICARE, MEDICAID, SELFPAY ==
--- NOTE | 2019-11-29 23:45 | RT.EKG_ITS ---
APPROVED REPORT Exam: Resting ECG Patient Location: E HR:109 bpm ECG Measurements Heart Rate 109 AXIS TN 168 P [id number] QRSd 137 QRS 139 QT 359 T -41 QTc 483 <Conclusion> Ventricular-paced complexes...other complexes also detected RBBB and LPFB...QRSd >120mS, axis(90,210) Notable nonspecific cardiac signal
--- NOTE | 2019-11-29 23:45 | DI.RAD_ITS ---
EXAM: XR PORTABLE CHEST AP CLINICAL HISTORY: pacer/defib, eval for wire abnormality TECHNIQUE: 2D digital imaging was performed. COMPARISON: CR,XR XR PORTABLE CHEST AP from 11/05/2019 FINDINGS: MEDIASTINUM: Normal. HEART: Stable cardiac size. PULMONARY VASCULATURE: Normal. LUNGS: Chronic stable appearing infiltrates are seen in the lungs. No acute consolidating infiltrate s are present. PLEURAL SPACE: No pleural effusion or pneumothorax. BONE:Normal. OTHER FINDINGS:Stable cardiac pacer leads. IMPRESSION: No acute pulmonary findings. DATA REPOSITORY: RADIATION DOSE DELIVERED:
[2019-11-30 00:12] VITALS: BP 118/91; PULSE 129; RESP 23; TEMP 36.7; O2SAT 95
[2019-11-30 00:18] VITALS: RESP 20
--- NOTE | 2019-11-30 00:20 | ED.GENADUL_ITS ---
Discharge Plan Disposition Patient Disposition: [facility] Condition: Critical Discharge Details Chief Complaint: Chest Pain Clinical Impression: Defibrillator discharge, Hypomagnesemia, Acute hypokalemia Primary Care Provider: Bennie Adams ED Provider: Jason Garnett Home Meds and New Rx's Prescriptions: No Action (DME) Inhaler, Assist Devices [Aerochamber Mini] 1 EACH spacer 1 ea Miscellaneous PRN Qty: 1 RF: 0 digoxin 125 mcg tablet 125 mcg PO DAILY Qty: 90 RF: 3 allopurinol 300 mg tablet 300 mg PO DAILY Qty: 90 RF: 3 diazepam 2 mg tablet 2 mg PO QHS PRN (Reason: anxiety) Qty: 30 RF: 2 acetaminophen [Tylenol] 325 mg Tablet 325 mg PO Q4H PRN PRNQty: 0 RF: 0 prednisone 5 mg Tablet 5 mg PO DAILY Qty: 0 RF: 0 simvastatin 20 mg Tablet 20 mg PO QPM Qty: 0 RF: 0 bumetanide 1 mg Tablet 1 mg PO DAILY@08,16 Qty: 0 RF: 0 albuterol sulfate [Ventolin HFA] 90 mcg/actuation Hfa Aerosol Inhaler 2 puff inhalation Q2H PRN PRNQty: 0 RF: 0 warfarin [Coumadin] 1 mg Tablet 1 mg PO MoWeThSa@1999 Qty: 0 RF: 0 Combivent Respimat 20-100 mcg/actuation Mist 1 puff inhalation QID Qty: 1 RF: 0 duloxetine 30 mg capsule,delayed release(DR/EC) 30 mg PO DAILY Qty: 30 RF: 0 metformin 500 mg Tablet Extended Release 24 Hr 500 mg PO DAILY RF: 0 ropinirole 0.5 mg tablet 0.25 mg PO HS RF: 0 Medical Decision Making Upon my evaluation, this patient had a high probability of imminent or life- threatening deterioration, which required my direct attention, intervention, and personal management. I have personally provided 45 minutes of critical care time exclusive of time spent on separately billable procedures. Time includes review of laboratory data, radiology results, discussion with consultants, and monitoring for potential decompensation. Interventions were performed as documented. This is a pleasant 79-year-old male who has a PMHx of NICMO/chronic combined sytolic and diastolic CHF with EF of 20-25% by echo (2017), s/p AICD, pulmonary HTN with RV dysfunction, PAF, Non-oxygen but steroid dependent COPD, asthma, bronchiectasis, atrial fibrillation on chronic Coumadin who presents today for defibrillator dysfunction. Of note the patient was recently discharged from the hospital on 11/21 for unrelated issues. Patient states that this evening his pacemaker defibrillator started going off, it is gone off a total of 7 times, the most recent of which was in the ED lobby where he went unresponsive for a brief period of time. Patient states that he has been taking his digoxin as directed and not missed any doses. He denies any vomiting or diarrhea fever chills or travel. It is been a few years since he has had something like this before. Patient has no other complaints at this time. No other modifying factors. Currently he denies any chest pain chest tightness chest heaviness, arm neck or shoulder pain. He denies any numbness tingling or weakness. Physical exam is unremarkable. We will monitor the patient here closely, I suspect that he has a notable electrolyte abnormality and/or digoxin that is subtherapeutic. He denies any yellow halos, so I do not suspect supratherapeutic levels. Will monitor closely reassess. 1:30 AM Patient is remained stable here in the ER. No additional episodes of defibrillation. Heart rate remains slightly tachycardic at 120. Blood pressure stable. Laboratory work-up demonstrates a subtherapeutic digoxin level at 0.79. Troponin is mildly elevated at 0.16., Magnesium is 1.3, calcium normal, potassium is 3.0. INR is 2.9. Suspect that these electrolytes in the digoxin is certainly a cause of his symptoms. We immediately gave 40 of oral potassium, 20 of IV potassium, and 2 g of magnesium. EKG demonstrates notable cardiac artifact, is otherwise unhelpful. We did contact [facility] cardiology and I discussed the case Dr. Adams, he recommends additional magnesium for total of 4 g, he also recommends adding amiodarone both as a 150 mg bolus and subsequent drip at 1 mg/min. As well as transfer to [facility] for emergent cardiac management. Patient is agreeable to plan. Discussed case with daughter who is also at bedside. Patient will be transferred via cal for management at [facility]. Diagnosis ventricular storm. I have extensively reviewed the treatment plan with the patient. I have addressed all patient concerns at this time. I have also discussed the plan with the admitting physician and they agree with the current assessment and plan and have agreed to assume responsibility for the patient. All parties demonstrate verbal understanding and agreement with our assessment and plan at this time. At time of transfer the patient was reassessed and continued to demonstrate currentstability. No signs of acute respiratory distress requiring intubation, hemodynamic instability requiring pressor support, or rapidly declining mental status. The patient is stable for transport. FINDINGS: Tubes, catheters and devices: Left chest AICD device. Lungs: Bilateral chronic appearing interstitial lung disease. This was present 11/09/2019 and is stable. No acute lung infiltrates. No acute edema. Pleural space: No pleural effusion. Heart/Mediastinum: Moderate cardiac enlargement. Bones/joints: Degenerative thoracic spine disease. IMPRESSION: 1. Chronic interstitial lung changes. 2. Cardiomegaly. 3. Left chest AICD device in position. Dictated and Authenticated by: Rosalino Mejia MD. Ordering:KENIA Gomez MD HPI General Date/Time Provider Initiated Documentation: 11/29/19 23:44 . HPI Narrative: This is a pleasant 79-year-old male who has a PMHx of NICMO/chronic combined sytolic and diastolic CHF with EF of 20-25% by echo (2017), s/p AICD, pulmonary HTN with RV dysfunction, PAF, Non-oxygen but steroid dependent COPD, asthma, bronchiectasis, atrial fibrillation on chronic Coumadin who presents today for defibrillator dysfunction. Of note the patient was recently discharged from the hospital on 11/21 for unrelated issues. Patient states that this evening his pacemaker defibrillator started going off, it is gone off a total of 7 times, the most recent of which was in the ED lobby where he went unresponsive for a brief period of time. Patient states that he has been taking his digoxin as directed and not missed any doses. He denies any vomiting or diarrhea fever chills or travel. It is been a few years since he has had something like this before. Patient has no other complaints at this time. No other modifying factors. Currently he denies any chest pain chest tightness chest heaviness, arm neck or shoulder pain. He denies any numbness tingling or weakness. Related Data Home Medications Medication Instructions Recorded Confirmed digoxin 125 mcg (0.125 mg) tablet 125 mcg PO DAILY #90 tab 01/13/19 11/30/19 allopurinol 300 mg tablet 300 mg PO DAILY #90 tab 10/06/19 11/30/19 acetaminophen [Tylenol] 325 mg PO Q4H PRN PRN #0 tab 11/12/19 11/30/19 albuterol sulfate [Ventolin HFA] 2 puff INHALATION Q2H PRN PRN #0 g 11/12/19 11/30/19 bumetanide 1 mg PO DAILY@08,16 #0 tab 11/12/19 11/30/19 prednisone 5 mg PO DAILY #0 tab 11/12/19 11/30/19 simvastatin 20 mg PO QPM #0 tab 11/12/19 11/30/19 warfarin [Coumadin] 1 mg PO MoWeThSa@[id number] #0 tab 11/12/19 11/30/19 duloxetine 30 mg PO DAILY #30 cap 11/22/19 11/30/19 ipratropium-albuterol [Combivent 1 puff INHALATION QID #1 g 11/22/19 11/25/19 Respimat] metformin 500 mg PO DAILY 11/22/19 11/30/19 diazepam 2 mg tablet 2 mg PO QHS PRN #30 tab 11/27/19 11/30/19 ropinirole 0.25 mg PO HS 11/30/19 11/30/19 Previous Rx's Medication Instructions Recorded digoxin 125 mcg (0.125 mg) tablet 125 mcg PO DAILY #90 tab 01/13/19 allopurinol 300 mg tablet 300 mg PO DAILY #90 tab 10/06/19 acetaminophen [Tylenol] 325 mg PO Q4H PRN PRN #0 tab 11/12/19 albuterol sulfate [Ventolin HFA] 2 puff INHALATION Q2H PRN PRN #0 g 11/12/19 bumetanide 1 mg PO DAILY@08,16 #0 tab 11/12/19 prednisone 5 mg PO DAILY #0 tab 11/12/19 simvastatin 20 mg PO QPM #0 tab 11/12/19 warfarin [Coumadin] 1 mg PO MoWeThSa@1999 #0 tab 11/12/19 duloxetine 30 mg PO DAILY #30 cap 11/22/19 ipratropium-albuterol [Combivent 1 puff INHALATION QID #1 g 11/22/19 Respimat] diazepam 2 mg tablet 2 mg PO QHS PRN #30 tab 11/27/19 Allergies Allergy/AdvReac Type Severity Reaction Status Date / Time venom-honey bee Allergy Severe Verified 11/25/19 15:11 oxycodone HCl [From Percocet] Allergy Intermediate Verified 11/25/19 15:11 aspirin AdvReac Mild epistaxis/nose Verified 11/25/19 15:11 bleeds NSAIDS (Non-Steroidal AdvReac Mild epistaxis/nose Verified 11/25/19 15:11 Anti-Inflamma bleeds PARMINDER Inhibitors AdvReac Unknown COUGH Verified 11/25/19 15:11 codeine AdvReac Unknown Verified 11/25/19 15:11 amiodarone AdvReac Insomnia Verified 11/25/19 15:11 diltiazem AdvReac Insomnia Verified 11/25/19 15:11 General Stated Complaint: Chest Pain YESIKA: 1 Review of Systems All systems reviewed & are unremarkable except as noted in HPI and below PFSH Medical History Asthma (Chronic) Atrial fibrillation (Chronic) Bronchiectasis (Acute 04/13/16) Chronic combined systolic and diastolic CHF (congestive heart failure) (Acute) Chronic fatigue (Chronic) Dilated idiopathic cardiomyopathy (Chronic) did not tolerate entresto. 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 Cataracts bilaterally b. Inguinal hernia LEFT HEART CARDIAC CATH Pacemaker (Acute) Repair of inguinal hernia left Family History Father Heart disease Mother Heart disease Social History Smoking/Tobacco Use Status: Never Alcohol Intake: never Drug use: Never Substance use type: does not use Current gender identity: male Do you feel safe at home: Yes Do you feel safe in your relationship?: Yes Exam Narrative Exam Narrative: 1.Const: Well-nourished, Well-developed, appearing stated age 2.Eyes: PERRL, no conjunctival injection, and symmetrical lids. 3.ENT: Atraumatic external nose and ears. Moist MM. Neck: Symmetric, trachea midline, No thyromegaly. 4.CVS: +S1/S2, No murmurs or gallops. Peripheral pulses 2+ and equal in all extremities. Brisk capillary refill in all extremities. Pacemaker site is palpable, nontender. No redness. 5.RESP: Unlabored respiratory effort. Clear to auscultation bilaterally. No wheezes rales or rhonchi 6.GI: Soft, Nontender/Nondistended, No hepatosplenomegaly. No guarding or rebound. 7.MSK: Normocephalic/Atraumatic, Extremities w/o deformity or ttp No cyanosis or clubbing, Normal movement of all extremities 8.Skin: Warm, Dry. No rashes or lesions. 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 Sensation grossly intact, no focal neurologic deficits. 10.Psych: (AAO) x3. Appropriate mood and affect Course Vital Signs Vital signs: Vital Signs Temperature 36.7 C 11/30/19 00:12 Pulse 129 H 11/30/19 00:12 Respiratory Rate 23 11/30/19 00:12 Blood Pressure 118/91 H 11/30/19 00:12 Pulse Oximetry 95 11/30/19 00:12 Temperature 36.7 C 11/30/19 00:12 Temperature Source Skin 11/30/19 00:12 Pulse 129 H 11/30/19 00:12 Respiratory Rate 23 11/30/19 00:12 Blood Pressure 118/91 H 11/30/19 00:12 Blood Pressure Position Sitting 11/30/19 00:12 Pulse Oximetry 95 11/30/19 00:12 Oxygen Delivery Method Room Air 11/30/19 00:12 Oxygen Flow Rate 0 11/30/19 00:12
[2019-11-30 00:22] LABS: Abs Immature Grans 0.03 k/cumm (0.0-0.09); Absolute Basophil Count 0.02 k/cumm (0.0-0.2); Absolute Eosinophil Count 0.23 k/cumm (0.0-0.7); Absolute Lymphocyte Count 1.55 k/cumm (1.2-3.4); Absolute Monocyte Count 1.15 k/cumm (0.11-0.7); Absolute Neutrophil Count 7.74 k/cumm (1.2-6.7); Basophils % 0.2; Eosinophils % 2.1; HCT 40.3 % (40.0-50.0); HGB 14.6 g/dL (13.5-17.5); Immature Grans % 0.3 %; Lymphocytes % 14.5; Mean Corp. HGB Concentration 36.2 g/dL (32.0-36.0); Mean Corpuscular Hemoglobin 36.7 pg (27.0-33.0); Mean Corpuscular Volume 101.3 fL (80-95); Mean Platelet Volume 10.6 fL (8.0-11.0); Monocytes % 10.7; Neutrophils % 72.2; Platelet Count 160 x1000/uL (130-400); RBC 3.98 m/cumm (4.50-6.00); RBC Distribution Width 13.8 % (11.8-14.1); White Blood Cell Count 10.72 k/cumm (4.4-10.8)
--- NOTE | 2019-11-30 00:31 | DI.VRAD_ITS ---
PROCEDURE INFORMATION: Exam: XR Chest, 1 View Exam date and time: 11/29/2019 12:13 AM Age: 79 years old Clinical indication: Other: Chest pain pacer problem; Prior surgery; Surgery date: 6+ months; Surgery type: Aicd; Additional info: Pacer/defib, eval for wire abnormality TECHNIQUE: Imaging protocol: XR of the chest Views: 1 view. COMPARISON: CR XR CHEST 2V PA LATERAL 11/09/2019 11:20 AM FINDINGS: Tubes, catheters and devices: Left chest AICD device. Lungs: Bilateral chronic appearing interstitial lung disease. This was present 11/09/2019 and is stable. No acute lung infiltrates. No acute edema. Pleural space: No pleural effusion. Heart/Mediastinum: Moderate cardiac enlargement. Bones/joints: Degenerative thoracic spine disease. IMPRESSION: 1. Chronic interstitial lung changes. 2. Cardiomegaly. 3. Left chest AICD device in position. Dictated and Authenticated by: Rosalino Mejia MD. Ordering:KENIA Gomez MD
[2019-11-30 00:34] LABS: ALT 21 U/L (16-63); AST 36 U/L (15-37); Albumin 2.9 g/dL (3.4-5.0); Alkaline Phosphatase 95 U/L (46-116); Anion Gap 13.5 mmol/L (3-11); BUN 22 mg/dL (7-18); Bilirubin, Total 0.7 mg/dL (0.2-1.0); CO2 26.5 mmol/L (21.0-32.0); Calcium 8.8 mg/dL (8.5-10.1); Chloride 94 mmol/L (98-107); Estimated GFR 53.53 (mL/min/1.73m2); Glucose 140 mg/dL (74-106); Magnesium 1.3 mg/dL (1.8-2.4); Sodium 134 mmol/L (136-145); Total Protein 7.5 g/dL (6.4-8.2)
[2019-11-30 00:37] LABS: Troponin I 0.16 ng/mL (<0.06)
[2019-11-30 00:38] LABS: INR 2.9 (0.9-1.1); PTT Activated 33.2 sec (21.0-31.4); Prothrombin Time 28.8 sec (9.3-11.0)
[2019-11-30 00:48] LABS: Digoxin 0.79 ng/mL (0.90-2.00)
[2019-11-30] MEDS: MAGNESIUM SULFATE 2 GM/50 ML BAG IVPB (00:56)
[2019-11-30] MEDS: Potassium Chloride 20 MEQ TABCR 40 MEQ PO (00:58)
[2019-11-30] MEDS: Amiodarone 150 MG/3 ML VIAL IVP (01:24)
[2019-11-30] MEDS: POTASSIUM CHLORIDE 20 MEQ/100 ML BAG 50 MEQ IVPB (01:27)
[2019-11-30 01:37] VITALS: BP 118/76; PULSE 116; RESP 19; O2SAT 92
[2019-11-30 01:56] VITALS: BP 109/72; PULSE 116; RESP 20; O2SAT 93
== END 2019-11-30 02:00 | disposition short-term general hospital (02) ==
PROVIDERS: Emergency Provider Student in an Organized Health Care Education/Training Program; PCP Family Medicine
DX: E87.6 Hypokalemia (principal); E83.42 Hypomagnesemia; I42.0 Dilated cardiomyopathy; I11.0 Hypertensive heart disease with heart failure; I50.42 Chronic combined systolic (congestive) and diastolic (congestive) heart failure; E11.9 Type 2 diabetes mellitus without complications; Z79.84 Long term (current) use of oral hypoglycemic drugs; Z95.810 Presence of automatic (implantable) cardiac defibrillator; J44.9 Chronic obstructive pulmonary disease, unspecified; Z79.51 Long term (current) use of inhaled steroids
CPT/HCPCS: 36415; 80053; 93005; 96365; 96368; 96376; 99285; 71045; 80162; 83735; 84484; 85025; 85610; 85730; 93010; J3480; J3490

== ENCOUNTER 2019-12-09 12:03 | Inpatient (IN) | payer MEDICARE, MEDICAID, SELFPAY ==
[2019-12-09 12:44] VITALS: BP 119/77; PULSE 55; RESP 20; TEMP 37; O2SAT 95
[2019-12-09 12:52] VITALS: BP 119/77; PULSE 55; RESP 20; TEMP 37; O2SAT 95
--- NOTE | 2019-12-09 14:24 | CM.SWINGPC ---
- If Service Date Differs Date of service: 12/09/19 Time of Service: 14:25 Swingbed Plan of Care Plan of care: SWING BED PROGRAM ACTIVITIES/DISCHARGE PLAN OF CARE ACTIVITIES PLAN Date:12/09/19 Identified Need:Individual activities Intervention/Plan:Activity Cart,television, telephone, one support visitor, due to COVID restrictions music, rekie and pet therapy are not available. Initials ALEXANDRA DISCHARGE PLAN Date:12/09/19 Identified Need:Home with home health supports and palliative care Intervention/Plan: Physical therapy ordered and OT to eval and treat. Initials KH
--- NOTE | 2019-12-09 14:28 | CMSA_ITS ---
- If Service Date Differs Date of service: 12/09/19 Time of Service: 14:28 SB Psychosocial/Act.Assessment - Hospital Admission Admission Date: 12/09/19 Admission From:: [facility] [place] - Swing Bed Admission Swing Bed Admit Date:: 12/09/19 Swing Bed Level of Care: Level 1/SNF - Social Supports PREVIOUS FUNCTIONAL STATUS/SOCIAL/FAMILY SUPPORTS:: Srini lives alone in his home in [place]. Per report, he still drives and handles his own finances. He is independent at baseline. His daughter, Juju, is supportive and lives nearby. - Prior to Admission Living Arrangements/Environment Prior to Admission:: Irineo lives at home on one level, alone, in [place]. His daughter recently moved into the apartment above his garage, so she is close to him, visits, and helps him prepare his meals daily. He has been independent prior to this admission. 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 He reports in the past he likes [employer] Music:: [employer] Music TV/Movies:: Irineo states he likes some television Reading:: Irineo states that due to his illness and poor activity tolerence he is not able to enjoy many activities. He states when he feels well he does drive. - Present Functional Status Physical Abilities:: Srini will be working with PT to improve ability to tolerate some activity. He becomes tired and short of breath during most activit y. His EF per recent echo is 10% Cognitive:: Alert, engaged he smiles often when sitting with CM. He is grateful to be back at [facility] with people he knows. Communication:: Clear, able to articluate needs and engage in plan. Sensory Systems: Intact Behavior:: Calm, appropriate, pleasant. - Medical History PAST MEDICAL HISTORY/PAST SURGICAL HISTORY:: Medical History . Asthma (Chronic). 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 Bronchiectasis (Acute 04/13/16). Chronic combined systolic and diastolic CHF (congestive heart failure) (Acute). Chronic fatigue (Acute). Dilated idiopathic cardiomyopathy (Chronic). did not tolerate entresto. Negative MPI at [facility] [place] in 04/[place]. GERD (gastroesophageal reflux disease) (Chronic). Gout attack (Inactive). HTN (hypertension) (Chronic). 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 Non-insulin dependent diabetes mellitus (Acute). Peripheral edema (Acute). Pulmonary hypertension (Chronic). Restless leg syndrome (Acute). 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 TIA (transient ischemic attack) (Acute). Surgical History . AICD (automatic cardioverter/defibrillator) present (Acute). Extraction of cataract. B/L. H/O surgical procedure (Chronic). a. Cataracts bilaterally. b. Inguinal hernia. LEFT HEART CARDIAC CATH. Pacemaker (Acute). Repair of inguinal hernia. left General Health:: Fair to poor, appears worn and tired during CM assessment. - Admission Data Reason for Swing Bed Admission:: Srini goal is to return home after a short period of PT and OT to improve function and activity tolerence. Discharge Plan:: Anticipate with 10-14 days of PT and OT, Srini will be able to return home with home health and his daughter's support. Srini does not want to be placed in a SNF facility and feels that with time will be able to return home. CM requested a pallaitive consult and ongoing discussion related to goals of care. Assessment: Srini is alert and engaged in plan. He states he does not want to go to a senior living and feels that if he can get stronger he can return home with family support. Srini is decondition related to prolonged hospital admission, health condition including EF of 10%. His goals 1. Return home 2. tolerate increase activity. 3. He is willing to meet with palliative during this admission. Store Team Leader: Tatianna Pugh Date Assessment was completed:: 12/09/19
--- NOTE | 2019-12-09 14:33 | W.PM.HP.N ---
Date of service: 12/09/19 Time of Service: 14:33 Assessment and Plan Assessment and plan (1) Ventricular tachycardia: Status: Chronic Assessment and plan: stable now, digoxin stopped by [facility] and treated with amiodarone. ICD in place. has cardiology appointment with Dr Ramirze on December 14 at 1:20 pm (2) Dilated idiopathic cardiomyopathy: Status: Chronic Assessment and plan: TTE shows mildly dilated LV with EF 10% and diffuse hypokinesis. continue amiodarone, spironolactone and warfarin. Spironolactone had been decreased to 12.5 mg daily due to soft blood pressures. We can increase as tolerated per cardiology recommendations. possible cardiac cath per cardiology could be considered for further work-up. (3) Diabetes mellitus type 2 with neurological manifestations: Status: Chronic Assessment and plan: continue diabetic diet, sliding scale as needed. A1C 6.6 (4) Ambulatory dysfunction: Status: Acute Assessment and plan: PT/OT (5) HTN (hypertension): Status: Chronic Assessment and plan: blood pressures stable, continue monitoring and adjust medications as needed. (6) Gout: Status: Chronic Assessment and plan: continue allopurinol. (7) DVT prophylaxis: Status: Acute Assessment and plan: fully anticoagulated on coumadin. (8) Discharge planning issues: Status: Acute Assessment and plan: case management following for discharge planning Case discussed with Dr. Jones who is in agreement History of Present Illness History of Present Illness Chief Complaint: ventricular tachycardia Narrative: This is a 79-year-old male patient well-known to the hospitalist service who has a past medical history of dilated cardiomyopathy with an ICD implant who presented to the emergency department here at [facility] after having several shocks from his ICD which he had 2 additional shocks after arriving here to the emergency department. The evaluation in the emergency department showed a potassium level of 3.1 and magnesium of 1.3. He was transferred to [facility] where he was started on amiodarone load as well as electrolyte replacement. While at [facility] he had no further shocks and remained hemodynamically stable. Interrogation of his ICD did show 3 episodes of ventricular fibrillation that were appropriately shocked. They stopped his digoxin. His Metroprolol dosing was continued and they were unable to uptitrated due to heart rate in the 50s and 60s. A TTE showed mildly dilated LV with severely reduced EF at 10%. He did undergo a nuclear stress test which showed mild lateral wall ischemia with no reversible defects. Possible cardiac catheterization was discussed but it was thought that this was not a large contributor to his cardiomyopathy. Initially his Coumadin was placed on hold but this was restarted as it was decided he would not undergo the cardiac catheterization at that time. Medically he remained stable. His spironolactone dose was decreased due to some soft blood pressures. Recommendations were to increase as tolerated. He remained too deconditioned to return home so was admitted here under [facility] level status for rehabilitation case management will be following. He will follow-up with Dr. Yoon cardiology on December 14. A palliative care consult will be placed. Review of Systems All systems reviewed & are unremarkable except as noted in HPI and below PFSH Social History Smoking/Tobacco Use Status: Never Alcohol Intake: never Drug use: Never Substance use type: does not use Current gender identity: male Do you feel safe at home: Yes Do you feel safe in your relationship?: Yes Meds Home Medications and Allergies Home Medications Medication Instructions Recorded Confirmed Type Inhaler, Assist Devices #1 aer 12/27/17 01/21/19 Clinic [Aerochamber [facility]] allopurinol 300 mg tablet 300 mg PO DAILY #90 tab 10/06/19 12/09/19 Rx acetaminophen [Tylenol] 325 mg PO Q4H PRN PRN #0 tab 11/12/19 12/09/19 Rx warfarin [Coumadin] 1 mg PO [id number] #0 tab 11/12/19 12/09/19 Rx duloxetine 30 mg PO DAILY #30 cap 11/22/19 12/09/19 Rx ipratropium-albuterol [Combivent 1 puff INHALATION QID #1 g 11/22/19 12/09/19 Rx Respimat] diazepam 2 mg tablet 2 mg PO QHS PRN #30 tab 11/27/19 12/09/19 Rx prednisone 5 mg tablet 5 mg PO DAILY #30 tab 11/30/19 12/09/19 Rx ropinirole 0.25 mg PO TID 11/30/19 12/09/19 History albuterol sulfate 1 inh INHALATION Q4H PRN PRN 12/09/19 12/09/19 History amiodarone 200 mg PO DAILY 12/09/19 12/09/19 History atorvastatin 40 mg PO QPM 12/09/19 12/09/19 History bumetanide 1 mg PO DAILY 12/09/19 12/09/19 History metoprolol succinate 100 mg PO DAILY 12/09/19 12/09/19 History nitroglycerin 0.4 mg SUBLINGUAL Q5-15M PRN 12/09/19 12/09/19 History pantoprazole 40 mg PO DAILY 12/09/19 12/09/19 History polyethylene glycol 3350 [Miralax] 17 g PO DAILY PRN 12/09/19 12/09/19 History sennosides-docusate sodium [Senna 2 tab PO BID PRN 12/09/19 12/09/19 History with Docusate Sodium] spironolactone 12.5 mg PO DAILY 12/09/19 12/09/19 History umeclidinium [Incruse Ellipta] 1 inh INHALATION DAILY 12/09/19 12/09/19 History Allergies Allergy/AdvReac Type Severity Reaction Status Date / Time venom-honey bee Allergy Severe Verified 11/25/19 15:11 oxycodone HCl [From Percocet] Allergy Intermediate Verified 11/25/19 15:11 aspirin AdvReac Mild epistaxis/nose Verified 11/25/19 15:11 bleeds NSAIDS (Non-Steroidal AdvReac Mild epistaxis/nose Verified 11/25/19 15:11 Anti-Inflamma bleeds PARMINDER Inhibitors AdvReac Unknown COUGH Verified 11/25/19 15:11 codeine AdvReac Unknown Verified 11/25/19 15:11 amiodarone AdvReac Insomnia Verified 11/25/19 15:11 diltiazem AdvReac Insomnia Verified 11/25/19 15:11 Exam Const General: cooperative, healthy appearing, comfortable and no acute distress Nutritional Appearance: average body habitus Orientation: alert, awake and oriented x3 HENMT Head: normal to inspection, normocephalic and atraumatic Face and sinus: normal facial exam Mouth: oral mucosae normal Resp Effort & Inspection: normal respiratory effort Cardio Rate: bradycardic Rhythm: regular rhythm GI Inspection: normal to inspection Palpation: soft Auscultation: normal bowel sounds Skin General skin exam: no rashes or lesions noted Neuro General: patient alert, patient awake and patient oriented x3 Cranial Nerves: CN's II-XI intact bilaterally Extrem General: normal to inspection and full ROM Results Labs Result diagrams: 12/10/19 06:07 12/10/19 06:07 Last Vital Signs Temp 37 C 12/09/19 12:52 Pulse 55 L 12/09/19 12:52 Resp 20 12/09/19 12:52 BP 119/77 12/09/19 12:52 Pulse Ox 95 12/09/19 12:52 COVID-19 Screening Have you,or household,traveled outside [place] in last 14 days?: No Had IN PERSON contact w/suspected or confirmed C-19 person: No
[2019-12-09] MEDS: Ipratropium/Albuterol 4 GM 120 PUFF INH IH (15:43)
[2019-12-09] MEDS: Sennosides/Docusate Sodium TAB 2 TAB PO (19:52)
[2019-12-09] MEDS: Atorvastatin 40 MG TAB PO (19:53)
[2019-12-09] MEDS: rOPINIRole 0.5 MG TAB 0.25 MG PO (19:53)
[2019-12-09] MEDS: Warfarin 1 MG TAB PO (20:22)
[2019-12-10 06:41] LABS: Abs Immature Grans 0.08 10^3/uL (0.0-0.06); Absolute Basophil Count 0.05 10^3/uL (0.0-0.2); Absolute Eosinophil Count 0.37 10^3/uL (0.0-0.7); Absolute Lymphocyte Count 1.45 10^3/uL (1.2-3.4); Absolute Neutrophil Count 8.31 10^3/uL (1.2-6.7); Basophils % 0.4; Eosinophils % 3.3; HGB 12.8 g/dL (13.5-17.5); Immature Grans % 0.7; Lymphocytes % 12.9; MCH 35.7 pg (27.0-33.0); MCHC 34.6 % (32.0-36.0); MCV 103.1 fL (80-95); MPV 10.5 fL (8.0-11.0); Monocytes % 8.9; Neutrophils % 73.8; Platelet Count 172 10^3/uL (130-400); RBC 3.59 10^6/uL (4.36-5.78); RDW 14.6 % (11.8-14.1); RDW-SD 53.9 fL; WBC 11.26 10^3/uL (4.4-10.8)
[2019-12-10 06:50] LABS: Anion Gap 7.6 mmol/L (3-11); BUN 24 mg/dL (7-18); CO2 27.4 mmol/L (21.0-32.0); CREATININE 1.19 mg/dL (0.70-1.30); Calcium 8.6 mg/dL (8.5-10.1); Chloride 98 mmol/L (98-107); Estimated GFR 59.28 (mL/min/1.73m2); Glucose 122 mg/dL (74-106); Potassium 3.7 mmol/L (3.5-5.1); Sodium 133 mmol/L (136-145)
[2019-12-10 06:52] LABS: INR 1.8 (0.9-1.1); Prothrombin Time 17.9 sec (9.3-11.0)
[2019-12-10 07:22] VITALS: BP 100/67; PULSE 69; RESP 18; TEMP 36.1; O2SAT 94
[2019-12-10] MEDS: Umeclidinium 7 CAP INHALER 1 CAP IH (07:38)
[2019-12-10] MEDS: Ipratropium/Albuterol 4 GM 120 PUFF INH IH ×4 (07:38→19:58)
[2019-12-10] MEDS: predniSONE 5 MG TAB PO (08:53)
[2019-12-10] MEDS: Spironolactone 25 MG TAB 12.5 MG PO (08:53)
[2019-12-10] MEDS: DULoxetine 30 MG CAP PO (08:53)
[2019-12-10] MEDS: Metoprolol CR 100 MG TABCR PO (08:53)
[2019-12-10] MEDS: Sennosides/Docusate Sodium TAB 2 TAB PO ×2 (08:54→19:59)
[2019-12-10] MEDS: rOPINIRole 0.5 MG TAB 0.25 MG PO ×3 (08:54→19:59)
[2019-12-10] MEDS: Allopurinol 300 MG TAB PO (08:54)
[2019-12-10] MEDS: Pantoprazole 40 MG TABCR PO (08:54)
[2019-12-10] MEDS: Bumetanide 1 MG TAB PO (08:54)
[2019-12-10] MEDS: Amiodarone 200 MG TAB PO (08:54)
--- NOTE | 2019-12-10 10:46 | NUR.NOTE ---
Nursing Note: Patients blood pressure was soft this morning. Rechecked manually prior to administering meds. There are no parameters on his medications. BP manually 102/66 AP 64. meds administered. Charge nurse was aware and agreed.
--- NOTE | 2019-12-10 10:52 | PT.INIE ---
Date of service: 12/10/19 Time of Service: 10:52 PT Notes Visit Reasons: DECONDITIONING Inpatient Physical Therapy Initial Evaluation Dates: 12/10/2019 Referring Doctor: Dalila Patino NP PT Orders: PT CONSULT: Eval/Treat Precautions: Fall. Standard. Activity as tolerated. Patient Profile/Admitting Diagnosis: Srini is a 79-year-old male with diagnosis of ventricular tachycardia with ICD in situ, dilated idiopathic cardiomyopathy with EF of 10%, and ambulatory dysfunction with referral to skilled PT services to address functional mobility decline. He received skilled physical therapy services at this hospital from 10/29/2019 through 11/23/2019 with discharge status of supervision level for all level surface ambulation up to 260 feet using the front wheeled walker. PMHX: Medical History Asthma (Chronic) Atrial fibrillation (Chronic) Bronchiectasis (Acute 04/13/16) Chronic combined systolic and diastolic CHF (congestive heart failure) (Acute) Chronic fatigue (Acute) Dilated idiopathic cardiomyopathy (Chronic) did not tolerate entresto. 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 Cataracts bilaterally b. Inguinal hernia LEFT HEART CARDIAC CATH Pacemaker (Acute) Repair of inguinal hernia left Subjective: Irineo is agreeable to PT consult and treatment today. Voices that he fell when he went back home from this hospital and that his L knee tends to give out. He still hopes to go back home as soon as it is safe to do so. he feels that his right arm and leg are stronger than the left. Objective: General Observation: Obese. IV in the R UE. Mental Status: Alert and oriented x 4 Pain: None reported ROM: Right Upper Extremity: Shoulder Flexion WFL. Shoulder abduction WFL. Elbow flexion WFL. Wrist flexion WFL. Opening and closing of hand WFL. Left Upper Extremity: Shoulder Flexion WFL. Shoulder abduction WFL. Elbow flexion WFL. Wrist flexion WFL. Opening and closing of hand WFL. Right Lower Extremity: Hip flexion WFL. Hip abduction WFL. Knee flexion WFL. Ankle dorsiflexion WFL. Ankle plantarflexion WFL. Left Lower Extremity: Hip flexion WFL. Hip abduction WFL. Knee flexion WFL. Ankle dorsiflexion WFL. Ankle plantarflexion WFL. Strength: Right Upper Extremity: Shoulder flexors 4/5. Shoulder abductors 4/5. Elbow flexors 4/5. Elbow extensors 4/5. Safety And Security Manager strong. Left Upper Extremity: Shoulder flexors 4/5. Shoulder abductors 4/5. Elbow flexors 4/5. Elbow extensors 4/5. Safety And Security Manager strong. Right Lower Extremity: Hip flexors 4/-5. Hip abductors 4-/5. Knee flexors 4-/5. Knee extensors 4-/5. Ankle dorsiflexors 4-/5. Ankle plantarflexors 4-/5. Left Lower Extremity:Hip flexors 4-/5. Hip abductors 4-/5. Knee flexors 4-/5. Knee extensors 4-/5. Ankle dorsiflexors 4-/5. Ankle plantarflexors 4-/5. Sensation: Intact as to pain and pressure on bilateral lower extremities. Bed Mobility/Transfers: Sit to supine SBA Sit to stand SBA with FWW Stand to sit SBA with FWW Bed to chair SBA with FWW Chair to bed SBA with FWW Gait: 100' + 100' using FWW with FWB with CGA and minimal SOB which resolved with rest. Mild SOB at end of each trip. Dominga decreased. Wheelchair follow needed. Moderate verbal cueing needed for safety and correction. Balance: Static Sitting: Normal Dynamic Sitting: Normal Static Standing: Fair Dynamic Standing: Fair Special Tests: Mobility Limitations Standardized Measure [facility] AM-PAC 6 clicks Basic Mobility Inpatient Short Form: Raw Score: 21 CMS Score: 29% deficit Informed Consent/Education: Patient instructed in purpose of PT consult and plan of care. Assessment: Irineo demonstrates functional mobility decline requiring minimal physical assistance and the use of walker for all mobility ADL performance, strength impairments, balance limitations, and endurance deficits resulting from admitting diagnoses. He will continue to benefit from skilled PT services in order regain prior level of function. Srini is a 79-year-old male with diagnosis of ventricular tachycardia, dilated idiopathic cardiomyopathy with EF of 10%, and ambulatory dysfunction with referral to skilled PT services to address functional mobility decline. He received skilled physical therapy services at this hospital from 10/29/2019 through 11/23/2019 at supervision level for all level surface ambulation up to 260 feet using the front wheeled walker. Patient presents with clinical signs and symptoms consistent with current/admitting diagnoses that have resulted to mobility limitations, gait instability, generalized weakness, and impairment of motor control as demonstrated by the following impairment level findings: 1. Decreased strength to B UE/LE major muscle groups 2. Impaired standing balance 3. Impaired activity tolerance Impairments are contributing to the following functional limitations: 1. Inability to safely ambulate without assistive device and physical assistance 2. Increase completion time for mobility ADL performance 3. Increased fall risk 4. Inability to negotiate steps alone safely Patient is assessed as a 69213 moderate complexity based on the following: History: 79-year-old male with impairment level findings, functional limitations, and past medical history as indicated above Examination: Demonstrable impairment in strength, balance, and mobility level with underlying impairments and functional limitations as documented above Presentation:Evolving Decision Makin moderate complexity Goals: Goals X1 week 1. Supine-Sit independent 2. Sit-Supine independent 3. Sit-Stand independent 4. Stand-Sit independent 5. Bed-Chair independent 6. Chair-Bed independent 7. Independent gait on level surface with use of least restrictive device for at least 300 feet without report of pain nor dyspnea 8. Independent stair negotiation while holding onto bilateral rails for at least 10 steps without report of pain nor dyspnea 9. Independent with home exercise program 10. Good static and dynamic standing balance/tolerance DISCHARGE RECOMMENDATIONS: SNF vs. NURSING HOME. Needs FWW to reduce fall risk. TREATMENT CODE/TIME: 38406 x 28 minutes beginning at 10:52 AM. Thank you very much for this referral. Beverley Cisneros PT, DPT, CLT [facility] [place], [place]
--- NOTE | 2019-12-10 14:13 | DI.RAD_ITS ---
EXAM: XR CHEST 2V PA LATERAL CLINICAL HISTORY: shortness of breath TECHNIQUE: 2D digital imaging was performed. COMPARISON: CR XR ribs RT PA chest 3V from 03/29/2018 CR XR CHEST 2V PA LATERAL from 05/30/2018 CR,XR XR CHEST 2V PA LATERAL from 10/28/[address] PELVIC WO from 10/30/2019 CR XR CHEST 2V PA LATERAL from 11/09/2019 FINDINGS: The heart is enlarged, unchanged. Pacemaker is again noted. There are underlying fibrotic changes. No infiltrates or effusions are seen. Mild pulmonary edema is not excluded. There are no thoracic compression fractures or evidence of a pneumothorax. IMPRESSION: Chronic fibrotic changes versus mild pulmonary edema. cardiomegaly. DATA REPOSITORY: RADIATION DOSE DELIVERED:
[2019-12-10 14:56] LABS: NT-proBNP 8042 pg/mL (<300); Troponin I < 0.05 ng/mL (<0.06)
[2019-12-10] MEDS: Normal Saline Flush 10 ML SYR (15:10)
[2019-12-10] MEDS: Bumetanide 1 MG/4 ML VIAL IVP (15:40)
--- NOTE | 2019-12-10 15:40 | PT.INNT ---
Date of service: 12/10/19 Time of Service: 15:00 PT Notes Visit Reasons: DECONDITIONING Held pm session per nsg, due to acute heart failure and SOB. Will check in with him tomorrow.
--- NOTE | 2019-12-10 16:49 | PHA.REVIEW ---
Pharmacy Admission Review - Admission Clinical Review (Last Reviewed 11/30/19 @ 01:33 by Jason Garnett DO) Ambulatory dysfunction (Acute) DVT prophylaxis (Acute) Discharge planning issues (Acute) venom-honey bee Allergy (Severe, Verified 11/25/19 15:11) oxycodone HCl [From Percocet] Allergy (Intermediate, Verified 11/25/19 15:11) aspirin Adverse Reaction (Mild, Verified 11/25/19 15:11) epistaxis/nose bleeds NSAIDS (Non-Steroidal Anti-Inflamma Adverse Reaction (Mild, Verified 11/25/19 15:11) epistaxis/nose bleeds PARMINDER Inhibitors Adverse Reaction (Unknown, Verified 11/25/19 15:11) COUGH codeine Adverse Reaction (Unknown, Verified 11/25/19 15:11) amiodarone Adverse Reaction (Verified 11/25/19 15:11) Insomnia diltiazem Adverse Reaction (Verified 11/25/19 15:11) Insomnia Height 5 ft 6.14 in Weight 82.497 kg - Renal Dosing Renal Dosing: BUN 24 mg/dL (7-18) H 12/10/19 06:07 Creatinine 1.19 mg/dL (0.70-1.30) 12/10/19 06:07 Medications needing adjustments: Reviewed (CrCl ~46.0, current meds okay) - Anticoagulation Anticoagulation: Hgb 12.8 g/dL (13.5-17.5) L 12/10/19 06:07 Hct 37.0 % (40.0-50.0) L 12/10/19 06:07 Plt Count 172 10^3/uL (130-400) 12/10/19 06:07 INR 1.8 (0.9-1.1) H D 12/10/19 06:07 Creatinine 1.19 mg/dL (0.70-1.30) 12/10/19 06:07 DVT Prohphylaxis: N/A Therapeutic Anticoagulation: Reviewed Medications: Warfarin - Opiate Usage Evaluate Pain Scale/Pains Meds: N/A - Relevant Labs Sodium 133 mmol/L (136-145) L 12/10/19 06:07 Potassium 3.7 mmol/L (3.5-5.1) 12/10/19 06:07 Chloride 98 mmol/L (98-107) 12/10/19 06:07 Electrolytes, C-Reactive P, ESR: Reviewed (Na 133, BUN 24, INR 1.8) - DM Control DM Control: Glucose 122 mg/dL (74-106) H 12/10/19 06:07 Insulin Dosing: N/A (Has noninsulin dependent DM, glucose elevated at 122) - Heart Failure/PR Heart Failure/PR: Troponin I < 0.05 ng/mL (<0.06) 12/10/19 14:25 NT-Pro-B Natriuret Pep 8042 pg/mL (<300) H 12/10/19 14:25 EF%, PARMINDER's, B-Blockers, Diuretics: Reviewed (Currently on metoprolol succinate, spironolactone and amiodarone) - BP Control BP Control: Blood Pressure 100/67 If elevated: Reviewed (BP within normal range) - Qtc Review If Elevated: N/A (No new EKG labs. QTc 485 on October 29, 2019.) - IV to PO Switch IV Medications: Reviewed - Home Meds Home Med List reviewed: Reviewed - Current meds Current Medication Order Review: Reviewed (Was previously on digoxin but switched to amiodarone at [facility]. Spironolactone was decreased due to BP on the lower end of normal.) - Comments Comments/Follow Ups: Monitor Na, BUN and INR. Watch for med changes (may increase spironolactone as tolerated)
[2019-12-10] MEDS: Atorvastatin 40 MG TAB PO (20:00)
[2019-12-10] MEDS: Warfarin 1 MG TAB PO (20:13)
[2019-12-11 07:06] LABS: INR 1.6 (0.9-1.1)
--- NOTE | 2019-12-11 08:04 | PDOC.CMPRO ---
- If Service Date Differs Date of service: 12/11/19 Time of Service: 08:04 Care Management Progress Note S/O: Srini is alert and engaged per PT notes he was able to ambulate. 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 Srini LTM is still pending, CM contacted LTM RN and faxed clinicals needed for assessment. was able to complete COLST with Srini today, CM faxed to [facility] to be scanned and placed a copy in his chart. Disposition to be determined anticipate he will return home with his family and hospice services in addition to [facility] care supports. A:Srini is a 79 year old gentleman admitted from [facility] to [facility] as a SB1 for PT/OT and ongoing palliative supports. P:Srini will be discharged home when medically ready anticipate with hospice. Srini continues to receive PT/OT.
[2019-12-11] MEDS: Umeclidinium 7 CAP INHALER 1 CAP IH (08:11)
[2019-12-11] MEDS: Ipratropium/Albuterol 4 GM 120 PUFF INH IH ×4 (08:11→20:19)
[2019-12-11 08:15] VITALS: BP 108/68; PULSE 79; RESP 16; TEMP 36; O2SAT 96
[2019-12-11] MEDS: Spironolactone 25 MG TAB 12.5 MG PO (08:16)
[2019-12-11] MEDS: Pantoprazole 40 MG TABCR PO (08:16)
[2019-12-11] MEDS: Bumetanide 1 MG TAB PO (08:16)
[2019-12-11] MEDS: Amiodarone 200 MG TAB PO (08:16)
[2019-12-11] MEDS: Sennosides/Docusate Sodium TAB 2 TAB PO ×2 (08:17→20:19)
[2019-12-11] MEDS: Metoprolol CR 100 MG TABCR PO (08:17)
[2019-12-11] MEDS: DULoxetine 30 MG CAP PO (08:17)
[2019-12-11] MEDS: rOPINIRole 0.5 MG TAB 0.25 MG PO ×3 (08:17→20:19)
[2019-12-11] MEDS: predniSONE 5 MG TAB PO (08:17)
[2019-12-11] MEDS: Allopurinol 300 MG TAB PO (08:17)
--- NOTE | 2019-12-11 08:57 | OT.INIE ---
Occupational Therapy Notes Inpatient Occupational Therapy [facility] Bed 1 Evaluation Date: 12/11/19 Referring Doctor: Dalila Patino NP OT Orders: Non-Urgent Precautions: Fall, Standard, DNR/DNI PATIENT PROFILE/ADMITTING DIAGNOSIS: Pt is a 79 year old male who was admitted from [facility] for the [facility] bed 1 rehabilitation status here at [facility]. Pt was recently admitted to [facility] at the beginning of the month and transitioned home with Services. Since his admission he was having some heart issues where his pacemaker went off multiple times in a day. He presented to the ER at [facility] where he was then transitioned to [facility] for further evaluation. Pt then transitioned back to [facility] on 12/09/19. He is admitted under the [facility] bed 1 program for the following dx including ventricular tachycardia, DM II with neurological manifestations, ambulatory dysfunction, dilated idiopathic cardiomyopathy, gout, DVT prophylaxis, HTN. He was seen for OT consultation for progression of his functional (I) in ADL/IADL routines with goal to transition back to home. Past Medical History- Asthma (Chronic) Atrial fibrillation (Chronic) Bronchiectasis (Acute 04/13/16) Chronic combined systolic and diastolic CHF (congestive heart failure) (Acute) Chronic fatigue (Acute) Dilated idiopathic cardiomyopathy (Chronic) did not tolerate entresto. Negative MPI at [facility] in 04/2017 GERD (gastroesophageal reflux disease) (Chronic) Gout attack (Inactive) HTN (hypertension) (Chronic) MGUS (monoclonal gammopathy of unknown significance) (Chronic 08/08/16) Non-insulin dependent diabetes mellitus (Acute) Peripheral edema (Acute) Pulmonary hypertension (Chronic) Restless leg syndrome (Acute) Steroid-dependent chronic obstructive pulmonary disease (Acute) TIA (transient ischemic attack) (Acute) Surgical History AICD (automatic cardioverter/defibrillator) present (Acute) Extraction of cataract B/L H/O surgical procedure (Chronic) a. Cataracts bilaterally b. Inguinal hernia LEFT HEART CARDIAC CATH Pacemaker (Acute) Repair of inguinal hernia left Social History/Home Situation: Pt lives in a private home in [place], [place]. He states that he is (I) with bathing and has a walk in shower with bench, he is (I) with dressing but states that at times he has difficulty with his socks. He utilizes a FWW for functional mobility. He has a daughter who (A) him with cooking and cleaning as well as laundry, grocery shopping and compliance examiner and she lives in the apartment on the property. He states that he has 1 step to enter his home with no railings. He was previously (I) with his community mobility. Most of his limitations that come with his ADL/IADL routines is based on his SOB at home. Equipment owned/DME: FWW, shower seat, grab bars SUBJECTIVE: Pt was sitting in chair when OT arrived. He reports that he is feeling better than he did yesterday. He states that he did not feel well and was having heart issues. He reports that he is ready to get his day started and is eager for his breakfast this morning. OBJECTIVE: General Observation: Bruising on pts back which he reports is from his fall before his admission to [facility], pleasant and able to answer questions appropriately, IV in dorsal (R) hand. Mental Status: A&Ox3 Pain: no c/o pain ROM: RUE AROM WFL L UE AROM WFL STRENGTH: RUE Shoulder flexion 4-/5, bicep 3+/5, tricep 3+/5, email administrator is weak and symmetrical LUE Shoulder flexion 4-/5, bicep 3+/5, tricep 3+/5, email administrator is weak and symmetrical *Pt is (L) hand dominant. SENSATION: Intact (B) UE FUNCTIONAL MOBILITY/ADLS: Transfers with FWW Sit-Stand (S) Stand-sit (S) BATHING sitting in chair with max (A) Set up/clean up (I) with washing (B) UE, face, abdomen, denies LE at this time. Min (A) with hair and max (A) back. DRESSING sitting in chair Dressing UE (I) with don and doffing t-shirt with ideal technique Dressing LE sitting on side of bed (I) with don and doffing (B) socks with increased performance time, min (A) with donning pants GROOMING Sitting in chair (I) with brushing hair TOILETING Pt denies EATING NT although does have ideal AROM for performance of eating routine. BALANCE: Static sitting Normal Dynamic Sitting Normal Static Standing Good Dynamic Standing Good SPECIAL TESTS: Daily Activity Limitations Standardized Measure [employer] AM -PAC ?6 clicks? Daily Activity Inpatient Short Form: Raw score: 23 Standardized score: 51.12 CMS score: 15.86% INFORMED CONSENT/EDUCATION: Pt instructed in purpose of OT Consult and plan of care. ASSESSMENT: Patient is a 79-year-old male referred to occupational therapy services with diagnosis of ventricular tachycardia, DM II with neurological manifestations, ambulatory dysfunction, dilated idiopathic cardiomyopathy, gout, DVT prophylaxis, HTN. Patient presents with clinical signs and symptoms consistent with dx, as demonstrated by the following impairment level findings: Decreased functional activity tolerance, decreased (B) UE strength, decreased functional mobility, decreased gross and fine motor control of (B) UE, cardiac hx and contributory fatigue with ADLs, SOB at times limiting functional (I). Impairments are contributing to the following functional limitations: Decreased standing tolerance, decreased LE dressing, Decreased LE bathing, SOB limiting pts functional (I) in ADL/IADL routines, increased fatigue with ADL/IADL routines, decreased functional activity tolerance with dynamic standing balance. AMPAC score 23 Patient is assessed as a Low 93692 complexity based on the following: History: see above Examination: see functional limitations as noted above Presentation: evolving Decision Making: AMPAC score 23 GOALS Goals x1 week 1. Transfers (I) with FWW 2. Dressing (I) for shirt in seated position, (I) pants 3. Bathing standing at sink/in shower (I) 4. Toileting on toilet (I) 5. Eating (I) 6. (I) with brushing teeth, standing at sink PLAN OF CARE/TREATMENT PLAN: 1x/day, 5 days/ week x 1week Initiate Occupational Therapy Services for bathing, dressing, grooming, toileting, eating, transfer training. DISCHARGE RECOMMENDATIONS: SB1 program for increased functional (I) in his ADL/IADL routines with goal to transition home when medically cleared per MD. OT recommends that pt return home with HH services vs. SNF if longer rehabilitation is needed. TREATMENT TIME/MINUTES/CODES 68094, 05340, 25 minutes (07:20) CAM Mcintyre/[facility]
--- NOTE | 2019-12-11 11:34 | NUR.NOTE ---
Nursing Note: Provider confident follow up xray not needed at this time. Nursing to monitor patient and report to provider changes in status to see if additional diuretics are needed
--- NOTE | 2019-12-11 12:09 | W.NUTRFU ---
Date of service: 12/11/19 Time of Service: 12:09 Nutritional Follow up NOTE: 79 year old male admitted with hypomagnesemia with DM2. Reports he no longer checks his blood sugars at home. BS wnl since admit. No recent A1C. Following Low sodium/regular texture diet with adequate intake (>75% of meals). Not at risk for nutritional decline at this time. Recommend recheck A1C. Time Spent in Nutritional Counseling and Treatment: 5 min spent face to face
--- NOTE | 2019-12-11 12:10 | W.PALLCONSUL ---
Date of service: 12/11/19 Time of Service: 09:11 History of Present Illness History of Present Illness Chief Complaint: end stage nonischemic cardiomyopathy with EF of 10% Narrative: I was asked to see Mr Romano to review his goals of care, fill out a COLST form again (first was misplaced), and discuss his understanding of his illness and options for care, including hospice. Mr Romano is on Swing Bed at [facility]. He was admitted as a transfer from [facility]. He was there from 11/29-12/08. While there his cardiac meds were changed; he had a repeat ECHO showing a drop in his LVEF from 25% to 10%. His admission diagnosis was ventricular tachycardia, incessant. His defibrillator was going off non-stop. He would go into rapid afib after his shocks. He was very weak. He was stablized with medication changes and returned to [facility]. Note that he has had 3 admissions to [facility] in the last 6 weeks; he has spent most of the intervening time at [facility]. He has not felt well for at least 3 months. I met first with Apple Pugh, CED and CM and with Mr Romano's daughter, Juju. We discussed options upon discharge. His hospitalist team at [facility] implied that there were no further cardiac interventions that could improve his heart function. He did go into acute CHF the day before I saw him. He received increased doses of IV diuretics with good results. When asked if he understood what his current health problems are, he said My heart is no good. Consults Consult date: 12/11/19 Requesting physician: Dalila Patino Assessment and Plan Assessment and plan (1) End stage congestive heart failure: Status: Chronic Assessment and plan: Had an exacerbation on 12/09. Breathing wnl today. Recommended hospice to him. [facility] cardiology implied in notes that no further interventions would be helpful. Needs tools to deal with symptoms of exacerbations as they arise. Bumex helped yesterday. Recommend LOW DOSE MORPHINE CONCENTRATE to be used for dyspnea, wit 5-10 mg q 1 hrs prn dyspnea. (2) Physical deconditioning: Status: Acute Assessment and plan: Has been hospitalized for most of the last 3 months. Very debilitated. Wants to continue PT/OT through 2 weeks of swing bed,. Would like to continue at home, too, if possible, depending on how he feels. Biggest goal is to go home. (3) Encounter for hospice care discussion: Status: Acute Assessment and plan: Qualifies for hospice based on his severe heart disease. Hospice nurse Dave Phillips RN, to meet with daughter Juju for hospice consult later today. (4) POLST (Physician Orders for Life-Sustaining Treatment): Status: Acute Assessment and plan: REviewed and signed. (5) Goals of care, counseling/discussion: Status: Acute Assessment and plan: Going home is his most important goal. Daughter needs help caring for him at his home. His sister willing to help, as if family friend, Abbey (?) We should aim for this at end of swing bed admission. (6) Ambulatory dysfunction: Status: Acute Assessment and plan: Very weak. Working with PT and OT. Motivated. Wants to go home. Knows he needs some mobility to do so. Review of Systems Constitutional Constitutional: Reports fatigue, Reports lethargy and Reports weakness Eyes Eyes: Reports requires corrective lenses ENT Ears, Nose, Mouth, and Throat: Reports dizziness and Reports disequilibrium Cardiovascular Cardiovascular: Reports irregular heart rhythm, Reports lightheadedness, Reports dyspnea (much better with change in diuretics), Reports dyspnea on exertion and Reports orthopnea Respiratory Respiratory: Reports chest congestion, Reports dyspnea (much better with change in diuretics) and Reports dyspnea on exertion Gastrointestinal Gastrointestinal: Reports constipation Genitourinary Genitourinary: Reports difficulty urinating Musculoskeletal Musculoskeletal: Reports abnormal gait, Reports atrophy and Reports muscle weakness Integumentary/Breasts Skin/Breast: Reports change in pigmentation (face often flushed) and Reports unusual bruising Neurologic Neurologic: Reports abnormal gait, Reports dizziness, Reports disequilibrium and Reports weakness Psychiatric Psychiatric: Reports difficulty concentrating Endocrine Endocrine: Reports fatigue Hematologic/Lymphatic Hematologic/Lymphatic: Reports easy bruising [facility] Medical History (Updated 12/11/19 @ 12:37 by Astrid Meyer MD) Asthma (Chronic) Atrial fibrillation (Chronic) Bronchiectasis (Acute 04/13/16) Chronic combined systolic and diastolic CHF (congestive heart failure) (Acute) Chronic fatigue (Chronic) Dilated idiopathic cardiomyopathy (Chronic) did not tolerate entresto. 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) Non-insulin dependent diabetes mellitus (Acute) Palliative care patient (Chronic) Peripheral edema (Acute) Physical deconditioning (Acute) Pneumonia (Inactive) POLST (Physician Orders for Life-Sustaining Treatment) (Acute) dnr.dni, signed 12/11/19 Positive blood culture (Inactive) Pulmonary hypertension (Chronic) Restless leg syndrome (Acute) Right lower lobe pneumonia (Inactive) 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 Cataracts bilaterally b. Inguinal hernia LEFT HEART CARDIAC CATH Pacemaker (Acute) Repair of inguinal hernia left Family History (Updated 12/11/19 @ 12:29 by Astrid Meyer MD) Father Heart disease Mother Heart disease Daughter No problems noted. Sister No problems noted. Social History (Updated 12/11/19 @ 12:32 by Astrid Meyer MD) Smoking/Tobacco Use Status: Never Alcohol Intake: never Drug use: Never Substance use type: does not use Caregiver/Support person: Yes Household members: children Housing: house Number of Children: 3 number of grandchildren: 6 Communication Needs: Hard of Hearing and Corrective Lenses Education Level: high school Do you need help understanding health information?: Always current occupation: retired Pets and animals: No Current gender identity: male What is your relationship status?: How often do you get together with friends or relatives?: three or more times per week Panel score (0-1 are the most socially isolated patients): 1 What type of physical activity do you participate in: none and sedentary lifestyle Special amanda needs: No Seatbelt use: always Working smoke detector in home: Yes Fire extinguisher in home: Yes Do you feel safe at home: Yes Do you feel safe in your relationship?: Yes Additional Social history: Daughter Juju and her live in apartment attached to house. Juju willing to sleep in the house if/when her father goes on hospice. Other siblings not involved in their dad's care. Juju with 2 grown children, both with children of their own and jobs. Srini' sister, age 80, willing to come sit with Srini but can't do much hands-on care given her age. Exam Const General: cooperative, comfortable and no acute distress Nutritional Appearance: average body habitus Orientation: alert, awake and oriented x3 HENMT Head: normal to inspection, normocephalic and atraumatic Face and sinus: normal facial exam Mouth: oral mucosae normal Eyes Sclera: sclerae normal Cornea: corneas normal Resp Effort & Inspection: normal respiratory effort Cardio Rate: bradycardic Rhythm: regular rhythm GI Inspection: normal to inspection Palpation: soft Auscultation: normal bowel sounds Skin General skin exam: no rashes or lesions noted and erythema (cheeks flushed) Hair: male pattern alopecia Neuro General: patient alert, patient awake and patient oriented x3 Cranial Nerves: CN's II-XI intact bilaterally Extrem General: muscle atrophy and pedal edema Psych Appearance: grossly normal Mental Status: mental status grossly normal Speech and Movement: speech and movement normal Mood: congruent mood Affect: normal affect Attitude: cooperative Thought Process: normal Insight: insight good Judgment: judgment good Other: understands that he is a very sick man Results Last Vital Signs Temp 96.8 F L 12/11/19 08:15 Pulse 79 12/11/19 08:15 Resp 16 12/11/19 08:15 BP 108/68 12/11/19 08:15 Pulse Ox 96 12/11/19 08:15 Labs Result diagrams: 12/10/19 06:07 12/10/19 06:07 Labs: Laboratory Results - last 24 hr 12/10/19 12/11/19 14:25 06:20 PT 16.0 H INR 1.6 H Troponin I < 0.05 NT-Pro-B Natriuret Pep 8042 H
--- NOTE | 2019-12-11 15:31 | PT.INTREAT ---
Date of service: 12/11/19 Time of Service: 13:00 PT Notes Visit Reasons: DECONDITIONING Inpatient Physical Therapy Treatment Note [facility] Date: 12/11/2019 SUBJECTIVE: Irineo states that he is doing a little better than he was yesterday. OBJECTIVE: [] BED MOBILITY/TRANSFERS Sit-supine: SBA Sit-stand:SBA Stand-sit: SBA GAIT Assistive Device: FWW Weight bearing: FWB Assist: CGA Distance: 200' in am and 260' in pm. Deviation: energy conservation, SOB with ambulation. THEREX: global LE strength in am held pm session due to longer walk. See flowsheet for details. ASSESSMENT: doing better. He is steady on his feet. Very little SOB during amb, but when we get back he requests rest to catch his breath. PLAN: continue to progress following PT POC. TREATMENT CODE/TIME: 25 min in am and 20 min in pm. [id number], [id number].
[2019-12-11 20:16] VITALS: BP 105/66; PULSE 69; RESP 17; TEMP 35.8; O2SAT 91
[2019-12-11] MEDS: Warfarin 5 MG TAB PO (20:18)
[2019-12-11] MEDS: Atorvastatin 40 MG TAB PO (20:19)
[2019-12-12 07:10] VITALS: BP 93/63; PULSE 58; RESP 17; TEMP 36; O2SAT 92
[2019-12-12] MEDS: rOPINIRole 0.5 MG TAB 0.25 MG PO ×3 (07:54→19:52)
[2019-12-12] MEDS: Spironolactone 25 MG TAB 12.5 MG PO (07:54)
[2019-12-12] MEDS: predniSONE 5 MG TAB PO (07:55)
[2019-12-12] MEDS: Amiodarone 200 MG TAB PO (07:55)
[2019-12-12] MEDS: Metoprolol CR 100 MG TABCR PO (07:55)
[2019-12-12] MEDS: DULoxetine 30 MG CAP PO (07:55)
[2019-12-12] MEDS: Bumetanide 1 MG TAB PO ×2 (07:55→15:40)
[2019-12-12] MEDS: Pantoprazole 40 MG TABCR PO (07:55)
[2019-12-12] MEDS: Sennosides/Docusate Sodium TAB 2 TAB PO ×2 (07:55→19:52)
[2019-12-12] MEDS: Allopurinol 300 MG TAB PO (07:56)
[2019-12-12 07:58] LABS: INR 1.8 (0.9-1.1); Prothrombin Time 17.8 sec (9.3-11.0)
[2019-12-12] MEDS: Umeclidinium 7 CAP INHALER 1 CAP IH (09:04)
[2019-12-12] MEDS: Ipratropium/Albuterol 4 GM 120 PUFF INH IH ×4 (09:04→19:53)
--- NOTE | 2019-12-12 13:00 | PT.INTREAT ---
Date of service: 12/12/19 Time of Service: 10:00 PT Notes Visit Reasons: DECONDITIONING Inpatient Physical Therapy Treatment Note [facility] Date: 12/12/2019 PRECAUTIONS:Fall, standard, activity as tolerated SUBJECTIVE: Stated he is tired today. OBJECTIVE: PAIN: No complaints of pain BED MOBILITY/TRANSFERS Supine-sit: SBA Sit-stand: SBA Stand-sit: SBA GAIT Assistive Device: FWW Weight bearing: FWB Assist: CGA Distance: 260ft, with two short standing rest breaks. THEREX: Discussed patient performing LAQs, seated marching, seated hip shoulder horizontal abd/adduction and seated rows later today while sitting in his chair. Too tired after taking his walk. ASSESSMENT: Tolerated ambulation very well with 2 short standing rest break needed, minimal SOB. PLAN: Continue with current POC, focus on improved ADL function as able to tolerate. TREATMENT CODE/TIME: [id number], 10:00 to 10:20
[2019-12-12] MEDS: Normal Saline Flush 10 ML SYR IVP (16:44)
[2019-12-12 19:40] VITALS: BP 96/65; PULSE 66; RESP 17; TEMP 36; O2SAT 97
[2019-12-12] MEDS: Warfarin 4 MG TAB PO (19:52)
[2019-12-12] MEDS: Atorvastatin 40 MG TAB PO (19:52)
[2019-12-12] MEDS: Warfarin 1 MG TAB PO (19:52)
[2019-12-13 07:24] VITALS: BP 101/66; PULSE 69; RESP 18; TEMP 35.7; O2SAT 94
[2019-12-13 07:29] LABS: INR 3.2 (0.9-1.1); Prothrombin Time 31.5 sec (9.3-11.0)
[2019-12-13] MEDS: Allopurinol 300 MG TAB PO (08:09)
[2019-12-13] MEDS: predniSONE 5 MG TAB PO (08:09)
[2019-12-13] MEDS: DULoxetine 30 MG CAP PO (08:09)
[2019-12-13] MEDS: Bumetanide 1 MG TAB PO ×2 (08:09→17:09)
[2019-12-13] MEDS: Amiodarone 200 MG TAB PO (08:09)
[2019-12-13] MEDS: Pantoprazole 40 MG TABCR PO (08:09)
[2019-12-13] MEDS: Spironolactone 25 MG TAB 12.5 MG PO (08:10)
[2019-12-13] MEDS: rOPINIRole 0.5 MG TAB 0.25 MG PO ×3 (08:10→19:57)
[2019-12-13] MEDS: Normal Saline Flush 10 ML SYR IVP (08:11)
[2019-12-13] MEDS: Ipratropium/Albuterol 4 GM 120 PUFF INH IH ×4 (08:20→19:57)
[2019-12-13] MEDS: Umeclidinium 7 CAP INHALER 1 CAP IH (08:24)
--- NOTE | 2019-12-13 11:50 | PT.INTREAT ---
Date of service: 12/13/19 Time of Service: 10:30 PT Notes Visit Reasons: DECONDITIONING Inpatient Physical Therapy Treatment Note [facility] Date: 12/13/2019 PRECAUTIONS:Fall, Standard, Activities as tolerated SUBJECTIVE: Stated he was tired post ambulation. He indicated he probably should have taken a short standing break while walking, once he was back in room. OBJECTIVE: PAIN: no complaints of pain. BED MOBILITY/TRANSFERS Sit-stand: SBA Stand-sit: SBA GAIT Assistive Device: FWW Weight bearing: Full Assist: CGA Distance: 200ft without any breaks today THEREX: Held on ther ex, due to patient being tired post ambulation. Indicated he would try to do LAQs and seated hip flexion later in the day, if up to it. ASSESSMENT: Tolerated ambulation fair, no noted SOB. But, did indicate he probably should have stopped at least once to rest. Did have his daughter with us and i think he was trying to do well for her. PLAN: Continue with current POC advancing, as able to tolerate for improved ADL function. TREATMENT CODE/TIME: 95340 x 1, 10:30 to 10:50
--- NOTE | 2019-12-13 13:51 | CMPROGNOTE_ITS ---
- If Service Date Differs Date of service: 12/13/19 Time of Service: 13:51 Care Management Progress Note S/O: CM met with Srini at the bedside he is alert and engaged during assessment. CM opened the conversation with Srini r/t his thoughts of hospice he states he does not want to have to come back to the hospital if he does not need to. He would like to have a home caregiver. He states that he agrees to Hospice services and feels it would be supportive to him and Juju. manager terminal Medicaid is pending, CM faxed all the clinicals to [facility] for approval. LT financials have been approved. GUERDA did discuss Srini defibrillator with him and rather he would want it turned off during admission, he would like think about it. When GUERDA asked Srini if he had any questions or concerns he states I was worried when came in and bluntly said I only have 6 months to live. He reports that made him feel anxious and scared. CM provided Srini with a book all about heart failure, and reviewed material with him. Srini is going to write his questions down for the provider so that he can review them with them. He is kind during encounter, he wanted to know if he needed to be home bound for hospice. CM reviewed benefits of the program and how Hospice could provide support. His goal continues to be to return home. A:Srini is a 79 year old gentleman admitted from [facility] as a SB1 for PT/OT and ongoing palliative supports. P:Srini will be discharged home when medically ready anticipate with hospice. Srini continues to receive PT/OT and will return home with his daughter when able. We discussed one more week depending if he continues to qualify PT/OT at the hospital.
[2019-12-13 18:02] VITALS: BP 103/69
[2019-12-13] MEDS: Atorvastatin 40 MG TAB PO (19:58)
[2019-12-14 07:06] LABS: Prothrombin Time 42.6 sec (9.3-11.0)
[2019-12-14 07:12] LABS: INR 4.4 (0.9-1.1)
[2019-12-14 07:24] VITALS: BP 100/62; PULSE 71; RESP 16; TEMP 36.8; O2SAT 92
[2019-12-14] MEDS: Ipratropium/Albuterol 4 GM 120 PUFF INH IH ×4 (08:00→19:48)
[2019-12-14] MEDS: Umeclidinium 7 CAP INHALER 1 CAP IH (08:00)
--- NOTE | 2019-12-14 08:01 | OTTR_ITS ---
Date of service: 12/14/19 Time of Service: 07:25 Occupational Therapy Notes Occupational Therapy Inpatient Treatment Note Date: 12/14/19 PRECAUTIONS: Fall, Standard, DNR/DNI SUBJECTIVE: Pt states that he had an ok weekend. He reports that he would like his breakfast which should be coming to the floor soon. He is agreeable to OT session but refuses to go to any position other than sitting at side of the bed. OBJECTIVE: PAIN:no c/o pain. FUNCTIONAL MOBILITY Sit-stand: (S) FWW Stand-sit: (S) FWW BATHING: Sitting at side of bed with max (A) Set/clean up Upper Body: (I) face, (B) UE and abdomen, min (A) washing hair Lower Body: Denies, although is receptive to education on performing bathing routine with decreased bending which will help with patient's breathing. DRESSING: Sitting on side of bed Upper Extremity: (I) with don and doffing t-shirt Lower Extremity: Denies and states that he changed his pants last night GROOMING: seated position (I) brushing hair TOILETING: NT, although was (I) with urinal prior to OT arrival Education provided to pt on performing toileting routine on toilet and promoting increased (I) in his ADL routines. OT will discuss this with nursing staff. Pt is in agreement with this. ASSESSMENT/PLAN: Discussion with pt on goal to return home requires standing ADLs/IADLs, pt is in agreement with this but states that he is tired this morning. He was able to facilitate seated bathing and dressing routines. He is making gains with his functional activity tolerance, still demonstrates fatigue post bathing routines. TREATMENT CODES/TIME: [id number], 35 minutes (07:25) Carmen Gurrola OTR/[facility]
[2019-12-14] MEDS: Spironolactone 25 MG TAB 12.5 MG PO (08:25)
[2019-12-14] MEDS: rOPINIRole 0.5 MG TAB 0.25 MG PO ×3 (08:26→19:49)
[2019-12-14] MEDS: Bumetanide 1 MG TAB PO ×2 (08:26→16:31)
[2019-12-14] MEDS: Pantoprazole 40 MG TABCR PO (08:26)
[2019-12-14] MEDS: predniSONE 5 MG TAB PO (08:27)
[2019-12-14] MEDS: Sennosides/Docusate Sodium TAB 2 TAB PO ×2 (08:27→19:49)
[2019-12-14] MEDS: DULoxetine 30 MG CAP PO (08:27)
[2019-12-14] MEDS: Metoprolol CR 100 MG TABCR PO (08:27)
[2019-12-14] MEDS: Allopurinol 300 MG TAB PO (08:27)
[2019-12-14] MEDS: Amiodarone 200 MG TAB PO (08:28)
--- NOTE | 2019-12-14 14:28 | PT.INTREAT ---
Date of service: 12/14/19 Time of Service: 13:30 PT Notes Visit Reasons: DECONDITIONING Inpatient Physical Therapy Treatment Note [facility] Date: 12/14/2019 SUBJECTIVE:Irineo reports that he doesn't understand why he is so short of breath. OBJECTIVE: [] BED MOBILITY/TRANSFERS Sit-supine: S Sit-stand:S Stand-sit:S GAIT Assistive Device: FWW Weight bearing: FWB Assist: SBA Distance: 200' in am and 300' in pm. THEREX: held on ther ex today, due to patient feeling SOB with ambulation. He declined ex in pm stating he had had enough. ASSESSMENT: ambulated further distance in pm vs am, however continues to c/o SOB. He is able to catch his breath after about 2 min rest. PLAN: will continue to progress, focusing on functional mobility and endurance. TREATMENT CODE/TIME: 15 min in am and 15 min in pm. [id number].
--- NOTE | 2019-12-14 15:40 | CHAPLAIN ---
Srini was in bed when I visited, wearing his own shirt. Last week he had a Palliative Care consult with Dr. Meyer. He is dealing with end stage congestive heart failure according to Dr. Meyer's notes. He did not mention this to me, or their discussion about hospice. Srini responds to questions with me, but seems reserved. I will continue to visit. He said he is in touch with family and this daughter visits nightly.
[2019-12-14] MEDS: Atorvastatin 40 MG TAB PO (19:50)
[2019-12-15 07:04] LABS: Prothrombin Time 42.1 sec (9.3-11.0)
[2019-12-15 07:07] LABS: INR 4.4 (0.9-1.1)
[2019-12-15] MEDS: Ipratropium/Albuterol 4 GM 120 PUFF INH IH ×4 (07:45→21:01)
[2019-12-15] MEDS: Umeclidinium 7 CAP INHALER 1 CAP IH (07:45)
[2019-12-15 08:07] VITALS: BP 100/64; PULSE 75; RESP 20; TEMP 36; O2SAT 91
[2019-12-15] MEDS: Pantoprazole 40 MG TABCR PO (08:28)
[2019-12-15] MEDS: Spironolactone 25 MG TAB 12.5 MG PO (08:28)
[2019-12-15] MEDS: rOPINIRole 0.5 MG TAB 0.25 MG PO ×3 (08:28→19:34)
[2019-12-15] MEDS: Amiodarone 200 MG TAB PO (08:28)
[2019-12-15] MEDS: Bumetanide 1 MG TAB PO ×2 (08:28→16:00)
[2019-12-15] MEDS: Sennosides/Docusate Sodium TAB 2 TAB PO ×2 (08:29→19:33)
[2019-12-15] MEDS: predniSONE 5 MG TAB PO (08:29)
[2019-12-15] MEDS: Metoprolol CR 100 MG TABCR PO (08:29)
[2019-12-15] MEDS: Allopurinol 300 MG TAB PO (08:29)
[2019-12-15] MEDS: DULoxetine 30 MG CAP PO (08:29)
--- NOTE | 2019-12-15 08:45 | OT.INTREAT ---
Date of service: 12/15/19 Time of Service: 07:45 Occupational Therapy Notes Occupational Therapy Inpatient Treatment Note Date: 12/15/19 PRECAUTIONS: Fall, Standard, DNR/DNI SUBJECTIVE: Pt states that he had a horrible night last night. He states that at one point he wanted his shirt off and then realized he didn't have another one and then somehow managed to get his shirt back on but inside out and backwards. He states that he is tired and not sure how he feels. OBJECTIVE: PAIN:no c/o pain but SOB at resting FUNCTIONAL MOBILITY Supine-sit: (I) Sit-supine: (I) Sit-stand: (I) Stand-sit: (I) Bed-Chair: SBA with LOB when static standing when performing UE dressing BATHING: standing at sink with FWW with min vc for dynamic standing balance Upper Body: (I) face, (B) UE, abdomen, max (A) back Lower Body: (I) (B) LE with slight LOB DRESSING: Upper Extremity: standing at sink min (A) with don and doffing t-shirt Lower Extremity: Seated in chair min (A) don and doffing pants. GROOMING: Standing at sink with FWW (I) with brushing hair EATING: seated in chair (I) with eating food with no difficulty swallowing or bringing food to mouth. ASSESSMENT/PLAN: Pt was receptive to standing ADLs this morning. He presents with decreased functional activity tolerance after performing standing bathing routines. He leans to the (R) when performing standing bathing and relies on the wall. He is receptive to vc throughout. He is fatigued post session and wants to sit in the chair. He requires SBA when performing functional mobility to the bathroom but OT and pt discuss that the goal is for him to be able to perform his ADLs in standing. TREATMENT CODES/TIME: [id number], 40 minutes (07:45) Carmen Gurrola OTR/[facility]
--- NOTE | 2019-12-15 10:37 | PT.INTREAT ---
Date of service: 12/15/19 Time of Service: 10:37 PT Notes Visit Reasons: DECONDITIONING Inpatient Physical Therapy Treatment Note [facility] Date: 12/15/2019 PRECAUTIONS: Fall SUBJECTIVE: Irineo states that he is feeling tired last night because he had a bad night and didn't sleep well. OBJECTIVE: PAIN: No c/o pain BED MOBILITY/TRANSFERS Sit-stand: S Stand-sit: S GAIT Assistive Device: FWW Weight bearing: Full Assist: S Distance: 50' + 150' Deviation: Seated rest x1, cueing for increased step-height for safety STAIRS: Up/down 3x4 and 2x6 using B rails and a step-over pattern with supervision ASSESSMENT: Patient tolerated session without complaint. He was able to tolerate the addition of stair training today without c/o increased fatigue or SOB. PLAN: Continue with PT's POC TREATMENT CODE/TIME: 30 minutes; 12422 x2
[2019-12-15] MEDS: Normal Saline Flush 10 ML SYR IVP (16:01)
[2019-12-15] MEDS: Atorvastatin 40 MG TAB PO (19:33)
[2019-12-16 06:39] LABS: INR 3.5 (0.9-1.1); Prothrombin Time 34.1 sec (9.3-11.0)
[2019-12-16] MEDS: Amiodarone 200 MG TAB PO (07:54)
[2019-12-16] MEDS: predniSONE 5 MG TAB PO (07:54)
[2019-12-16] MEDS: Metoprolol CR 100 MG TABCR PO (07:54)
[2019-12-16] MEDS: DULoxetine 30 MG CAP PO (07:54)
[2019-12-16] MEDS: Allopurinol 300 MG TAB PO (07:54)
[2019-12-16] MEDS: Bumetanide 1 MG TAB PO ×2 (07:54→15:21)
[2019-12-16] MEDS: Pantoprazole 40 MG TABCR PO (07:54)
[2019-12-16] MEDS: rOPINIRole 0.5 MG TAB 0.25 MG PO ×3 (07:55→20:02)
[2019-12-16] MEDS: Spironolactone 25 MG TAB 12.5 MG PO (07:56)
[2019-12-16] MEDS: Normal Saline Flush 10 ML SYR IVP ×2 (07:57→15:21)
[2019-12-16 08:05] VITALS: BP 122/85; PULSE 82; RESP 20; TEMP 36
[2019-12-16] MEDS: Umeclidinium 7 CAP INHALER 1 CAP IH (08:06)
[2019-12-16] MEDS: Ipratropium/Albuterol 4 GM 120 PUFF INH IH ×4 (08:06→20:02)
--- NOTE | 2019-12-16 08:14 | OTTR_ITS ---
Date of service: 12/16/19 Time of Service: 07:50 Occupational Therapy Notes Occupational Therapy Inpatient Treatment Note Date: 12/16/19 PRECAUTIONS: Fall, Standard, DNR/DNI SUBJECTIVE: Pt was in bathroom prior to OT arrival. He states that he was standing by the sink and noticed that his (R) leg started to shake. He states that he is still having difficulty getting his pants and underwear on. He does have adaptive equipment in the room including a dressing stick and clerical adviser which he states that he uses sometimes but sometimes its just more work. OBJECTIVE: PAIN:no c/o pain but pt states that after he does have slight SOB. Respiratory gave pt his inhalers during OT session which did seem to help. FUNCTIONAL MOBILITY Sit-stand: (S) Stand-sit: (S) Bed-Chair: (S) BATHING: Pt performed this prior to OT arrival Upper Body: He reports that he was (I) standing at sink with FWW Lower Body: Seated in bathroom (I) DRESSING: Upper Extremity: Sitting in chair (I) with don and doffing t-shirt Lower Extremity: Seated in bathroom (I) with don and doffing pants and underwear with increased performance time and increased fatigue post LE dressing. Pt did not utilize adaptive equipment GROOMING: Seated in chair (I) with brushing hair TOILETING: Device: on toilet Assist: (I) EATING: seated in chair min (A) with opening lids, otherwise (I) with food to mouth translation. ASSESSMENT/PLAN: Pt was an active participant in OT session. He was able to perform standing ADLs/IADLs with increased (I) although decreased functional activity tolerance and increased performance time. TREATMENT CODES/TIME: 65503, 20 minutes (07:50) Carmen Gurrola, OTR/L [facility]
--- NOTE | 2019-12-16 09:03 | NUR.NOTE ---
Nursing Note: 12/16/2019 09:03 Nurse noted skin breakdown on patient's R hand underneath white IV tubing clamp. Nurse washed open wound with water, which appears to be approximately ~3 cm in length, and wiped surrounding area with alcohol prep pad to clean dried blood. Nurse applied a bandaid to cover open area. Pt requested a bandaid on L hand also to cover a healing skin tear that he reports he keeps picking at. Nurse loosely applied a bandaid over this scab to prevent scab removal. Nurse will continue to monitor.
--- NOTE | 2019-12-16 12:50 | PT.INTREAT ---
Date of service: 12/16/19 Time of Service: 12:50 PT Notes Visit Reasons: DECONDITIONING Inpatient Physical Therapy Treatment Note [facility] Date: 12/16/2019 PRECAUTIONS: Fall SUBJECTIVE: Irineo states that he is feeling tired again today because he didn't sleep well again last night. He also reports that he has been feeling short of breath with activity today. OBJECTIVE: PAIN: No c/o pain BED MOBILITY/TRANSFERS Sit-stand: S Stand-sit: S Bed-chair: S Chair-bed: S GAIT Assistive Device: FWW Weight bearing: Full Assist: S Distance: 50' x2 Deviation: Seated rest x10 minutes due to SOB and not feeling well, cueing for increased step-height for safety ASSESSMENT: Patient tolerated session with complaint of increased SOB with activity. PLAN: Continue with PT's POC TREATMENT CODE/TIME: 20 minutes; [id number]
[2019-12-16] MEDS: Acetaminophen 325 MG TAB PO (16:05)
[2019-12-16] MEDS: Atorvastatin 40 MG TAB PO (20:01)
[2019-12-17 06:32] LABS: INR 2.6 (0.9-1.1); Prothrombin Time 25.9 sec (9.3-11.0)
[2019-12-17] MEDS: Umeclidinium 7 CAP INHALER 1 CAP IH (07:47)
[2019-12-17] MEDS: Ipratropium/Albuterol 4 GM 120 PUFF INH IH ×4 (07:47→20:33)
[2019-12-17 07:55] VITALS: BP 96/66; PULSE 70; RESP 19; TEMP 35.2; O2SAT 90
--- NOTE | 2019-12-17 09:00 | OT.INPN ---
Date of service: 12/17/19 Time of Service: 08:25 Occupational Therapy Notes Occupational Therapy Inpatient Progress Note Date: 12/17/19 Dates of Service: 12/11/19-12/17/19 Referring Doctor: Dalila Patino NP OT Orders: Non-Urgent Precautions: Fall, Standard, DNR/DNI PATIENT PROFILE/ADMITTING DIAGNOSIS: Pt is a 79 year old male who was admitted from [facility] [place] [facility] [place] [facility] rehabilitation status here at [facility] Pt was recently admitted to [facility] at the beginning of the month and transitioned home with Services. Since his admission he was having some heart issues where his pacemaker went off multiple times in a day. He presented to the ER at [facility] where he was then transitioned to [facility] for further evaluation. Pt then transitioned back to [facility] on 12/09/19. He is admitted under the [facility] bed [facility] program for the following dx including ventricular tachycardia, DM II with neurological manifestations, ambulatory dysfunction, dilated idiopathic cardiomyopathy, gout, DVT prophylaxis, HTN. He was seen for OT consultation on 12/10/19 for progression of his functional (I) in ADL/IADL routines with goal to transition back to home. Past Medical History- Asthma (Chronic) Atrial fibrillation (Chronic) Bronchiectasis (Acute 04/13/16) Chronic combined systolic and diastolic CHF (congestive heart failure) (Acute) Chronic fatigue (Acute) Dilated idiopathic cardiomyopathy (Chronic) did not tolerate entresto. 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 Cataracts bilaterally b. Inguinal hernia LEFT HEART CARDIAC CATH Pacemaker (Acute) Repair of inguinal hernia left Social History/Home Situation: Pt lives in a private home in [place], [place]. He states that he is (I) with bathing and has a walk in shower with bench, he is (I) with dressing but states that at times he has difficulty with his socks. He utilizes a FWW for functional mobility. He has a daughter who (A) him with cooking and cleaning as well as laundry, grocery shopping and bookbinder apprentice and she lives in the apartment on the property. He states that he has 1 step to enter his home with no railings. He was previously (I) with his community mobility. Most of his limitations that come with his ADL/IADL routines is based on his SOB at home. Equipment owned/DME: FWW, shower seat, grab bars SUBJECTIVE: OT attempted to see earlier this morning and he notes that he was too tired at that time and needed to rest. OT went back an hour later and pt reported that he was feeling better. He speaks with OT about how he would like to return home and states that he feels like he is somewhat better but is not feeling great. He is agreeable to OT session. OBJECTIVE: Pain: no c/o pain ROM: RUE AROM WFL L UE AROM WFL STRENGTH: RUE Shoulder flexion 4-/5, bicep 4/5, tricep 3+/5, historical manuscripts curator is symmetrical LUE Shoulder flexion 4-/5, bicep 4/5, tricep 3+/5, historical manuscripts curator is symmetrical *Pt is (L) hand dominant. SENSATION: Intact (B) UE FUNCTIONAL MOBILITY/ADLS: Transfers with FWW Sit-Stand (S) Stand-sit (S) dynamic standing at sink with FWW SBA at times due to LOB and fatigue BATHING Standing at sink with FWW (I) with face, (B) UE And abdomen. Pt denies LE but is able to tolerate standing balance for about 5-10 minutes before feeling fatigued. OT and pt discuss HHOT referral to (A) pt at home and home setup needs. DRESSING Dressing UE (I) with don and doffing t-shirt with ideal technique in standing position at sink with FWW Dressing LE sitting on side of bed (I) with don and doffing (B) socks with increased performance time, min (A) with donning pants for (L) pant leg. OT educated and trained pt in use of sock aid which he was able to use with ideal technique in the sitting position. GROOMING Standing at sink with FWW (I) with brushing hair, (I) with brushing teeth, he required SBA as this was at end of routine and he was fatigued and had slight LOB leaning into noonan. TOILETING (I) with urinal and commode, he does utilize toilet when he goes into the bathroom. EATING sitting in chair (I) with food to mouth translation, cutting food, opening containers and no issues with swallowing. BALANCE: Static sitting Normal Dynamic Sitting Normal Static Standing Good Dynamic Standing Good ASSESSMENT: Patient is a 79-year-old male referred to occupational therapy services with diagnosis of ventricular tachycardia, DM II with neurological manifestations, ambulatory dysfunction, dilated idiopathic cardiomyopathy, gout, DVT prophylaxis, HTN. Pt has been seen for 1 week for skilled Occupational Therapy services. He is an active participant in each session and is demonstrating increased functional (I) since initial consult. Pt still is presenting with LOB in standing to perform his ADLs/IADLs after 5 minutes, he requires min (A) for (L) pant leg of pants and he is presenting with decreased functional activity tolerance. He does not feel that his balance and his (B) LE are where he would like them to be to return home but is hopeful that he will be able to return home soon. OT will continue to work with pt to progress his functional (I) as well as (I) in standing ADLs which is his baseline level of function. GOALS Goals x1 week 1. Transfers (I) with FWW-progressing towards 2. Dressing (I) for shirt in seated position, (I) pants -met for shirt, progressing for pants 3. Bathing standing at sink/in shower (I)- met with min vc for LOB 4. Toileting on toilet (I)-met 5. Eating (I)- met 6. (I) with brushing teeth, standing at sink- met PLAN OF CARE/TREATMENT PLAN: 1x/day, 5 days/ week x 1week Initiate Occupational Therapy Services for bathing, dressing, grooming, toileting, eating, transfer training. DISCHARGE RECOMMENDATIONS: SB1 program for increased functional (I) in his ADL/IADL routines with goal to transition home when medically cleared per MD. OT recommends that pt return home with HH services vs. SNF if longer rehabilitation is needed. TREATMENT TIME/MINUTES/CODES [id number], 35 minutes (08:25) Carmen Gurrola OTR/L [facility] [place]
[2019-12-17] MEDS: predniSONE 5 MG TAB PO (09:02)
[2019-12-17] MEDS: Allopurinol 300 MG TAB PO (09:02)
[2019-12-17] MEDS: DULoxetine 30 MG CAP PO (09:02)
[2019-12-17] MEDS: Pantoprazole 40 MG TABCR PO (09:03)
[2019-12-17] MEDS: Spironolactone 25 MG TAB 12.5 MG PO (09:03)
[2019-12-17] MEDS: Amiodarone 200 MG TAB PO (09:03)
[2019-12-17] MEDS: Bumetanide 1 MG TAB PO ×2 (09:03→16:50)
[2019-12-17] MEDS: Metoprolol CR 100 MG TABCR PO (09:03)
[2019-12-17] MEDS: rOPINIRole 0.5 MG TAB 0.25 MG PO ×3 (09:03→20:32)
--- NOTE | 2019-12-17 11:10 | PT.INPN ---
Date of service: 12/17/19 Time of Service: 11:10 PT Notes Visit Reasons: DECONDITIONING Inpatient Physical Therapy Progress Notes Dates: 12/17/2019 Referring Doctor: Dalila Patino NP PT Orders: PT CONSULT: Eval/Treat Precautions: Fall. Standard. Activity as tolerated. Patient Profile/Admitting Diagnosis: Srini is a 79-year-old male with diagnosis of ventricular tachycardia with ICD in situ, dilated idiopathic cardiomyopathy with EF of 10%, and ambulatory dysfunction with referral to skilled PT services to address functional mobility decline. He received skilled physical therapy services at this hospital from 10/29/2019 through 11/23/2019 with discharge status of supervision level for all level surface ambulation up to 260 feet using the front wheeled walker. Subjective: Irineo is agreeable to being seen today. States that his feet does not feel sturdy and that his left knee continues to bother him. He does not know and remains undecided about going home under hospice. He continues to report being fatigued especially after PT session today. Objective: General Observation: Obese. IV in the R UE. Mental Status: Alert and oriented x 4 Pain: R knee 3-4/10 ROM: Right Upper Extremity: Shoulder Flexion WFL. Shoulder abduction WFL. Elbow flexion WFL. Wrist flexion WFL. Opening and closing of hand WFL. Left Upper Extremity: Shoulder Flexion WFL. Shoulder abduction WFL. Elbow flexion WFL. Wrist flexion WFL. Opening and closing of hand WFL. Right Lower Extremity: Hip flexion WFL. Hip abduction WFL. Knee flexion WFL. Ankle dorsiflexion WFL. Ankle plantarflexion WFL. Left Lower Extremity: Hip flexion WFL. Hip abduction WFL. Knee flexion WFL. Ankle dorsiflexion WFL. Ankle plantarflexion WFL. Strength: Right Upper Extremity: Shoulder flexors 4/5. Shoulder abductors 4/5. Elbow flexors 4/5. Elbow extensors 4/5. Watch And Clock Maker And Repairer strong. Left Upper Extremity: Shoulder flexors 4/5. Shoulder abductors 4/5. Elbow flexors 4/5. Elbow extensors 4/5. Watch And Clock Maker And Repairer strong. Right Lower Extremity: Hip flexors 4/-5. Hip abductors 4-/5. Knee flexors 4-/5. Knee extensors 4-/5. Ankle dorsiflexors 4-/5. Ankle plantarflexors 4-/5. Left Lower Extremity:Hip flexors 4-/5. Hip abductors 4-/5. Knee flexors 4-/5. Knee extensors 4-/5. Ankle dorsiflexors 4-/5. Ankle plantarflexors 4-/5. Sensation: Intact as to pain and pressure on bilateral lower extremities. Bed Mobility/Transfers: Sit to supine supervision Sit to stand supervision with FWW Stand to sit supervision with FWW Bed to chair supervision with FWW Chair to bed supervision with FWW Gait: 100' + 150' using FWW with FWB with SBA with minimal SOB which resolved with rest. Dominga increasing. Balance: Static Sitting: Normal Dynamic Sitting: Normal Static Standing: Fair Dynamic Standing: Fair Special Tests: Mobility Limitations Standardized Measure [facility] 6 clicks Basic Mobility Inpatient Short Form: Raw Score: 23 CMS Score: 11% deficit Informed Consent/Education: Patient instructed in purpose of PT consult and plan of care. Assessment: Irineo continues to be limited by his cardiac status in terms of mobility performance and reports increased fatigue right after PT session. Resistance exercises were initiated today along with mobility retraining which resulted to considerable fatigue in patient the following today. Will continue to closely monitor patient 's response to graduated strengthening exercises. Will work on same set of exercises for the duration of patient's stay here prior to return to home when medically cleared. Patient continues to present with clinical signs and symptoms consistent with current/admitting diagnoses that have resulted to mobility limitations, gait instability, generalized weakness, and impairment of motor control as demonstrated by the following impairment level findings: 1. Decreased strength to B UE/LE major muscle groups 2. Impaired standing balance 3. Impaired activity tolerance Impairments are contributing to the following functional limitations: 1. Inability to safely ambulate without assistive device and physical assistance 2. Increase completion time for mobility ADL performance 3. Increased fall risk 4. Inability to negotiate steps alone safely Patient is assessed as a 50609 moderate complexity based on the following: History: 79-year-old male with impairment level findings, functional limitations, and past medical history as indicated above Examination: Demonstrable impairment in strength, balance, and mobility level with underlying impairments and functional limitations as documented above Presentation:Evolving Decision Makin moderate complexity Goals: Goals X1 week 1. Supine-Sit independent NOT MET. CONTINUE. 2. Sit-Supine independent NOT MET. CONTINUE. 3. Sit-Stand independent NOT MET. CONTINUE. 4. Stand-Sit independent NOT MET. CONTINUE. 5. Bed-Chair independent NOT MET. CONTINUE. 6. Chair-Bed independent NOT MET. CONTINUE. 7. Independent gait on level surface with use of least restrictive device for at least 300 feet without report of pain nor dyspnea NOT MET. CONTINUE. 8. Independent stair negotiation while holding onto bilateral rails for at least 10 steps without report of pain nor dyspnea NOT MET. CONTINUE. 9. Independent with home exercise program NOT MET. CONTINUE. 10. Good static and dynamic standing balance/tolerance NOT MET. CONTINUE. DISCHARGE RECOMMENDATIONS: SNF vs. [facility]. Needs FWW to reduce fall risk. TREATMENT CODE/TIME: 82057 x 25 minutes, 24016 x 14 minutes beginning at 11:10 AM. Thank you very much for this referral. Beverley Cisneros PT, DPT, CLT [facility] [place], [place]
--- NOTE | 2019-12-17 14:48 | CHAPLAIN ---
Srini was sitting up in his chair when I visit. 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 His daughter continues to visit. Srini jokes around with the staff caring for him. He is fairly reserved with me.
--- NOTE | 2019-12-17 15:37 | CMACTNOTE_ITS ---
- If Service Date Differs Date of service: 12/17/19 Time of Service: 15:37 Care Management Activity Note S/O: Irineo was sitting up in his chair when CM met with him. He reported that he is being kept very busy at [facility] with the RN care, PT and OT, as well as the visits from the Linen Tech and care managers. He reported that he feels that he is getting stronger, but he is very tired. He stated that his daughter, Juju visits him daily, usually after she gets out of work. CM spoke with Sharonda from [facility] who stated that he was clinically approved for [facility]. Juju stated that he is approved for 720 hours of care giving a year. She chose [facility] for the case management of his [facility] program. Juju is expecting Irineo to have 14 days of SWB, which will be ending on 12/23/19. CM will advocate for him remaining at [facility] during this time to continue to work with PT/OT, while he continues to gain strength in order to return home. CM will continue to follow. A:Srini is a 79 year old gentleman admitted from [facility] to [facility] as a SB1 for PT/OT and ongoing palliative supports. P:Srini will be discharged home when medically ready anticipate with hospice. Srini continues to receive PT/OT. He was recently approved for additional services through the [facility] program, for 720 hours/year. His daughter, Juju is helping to coordinate his care at home. CM will continue to follow and support discharge planning considerations.
[2019-12-17] MEDS: Atorvastatin 40 MG TAB PO (20:32)
[2019-12-17] MEDS: Acetaminophen 325 MG TAB PO (23:45)
--- NOTE | 2019-12-18 04:06 | NUR.NOTE ---
Nursing Note: No change in assessment from this evening. Pt resting and remains asleep. Turns self in bed. Safety maintained.
[2019-12-18 06:59] LABS: INR 2.1 (0.9-1.1); Prothrombin Time 20.7 sec (9.3-11.0)
[2019-12-18 07:09] VITALS: BP 99/77; PULSE 67; RESP 20; TEMP 36.1; O2SAT 93
[2019-12-18] MEDS: Umeclidinium 7 CAP INHALER 1 CAP IH (07:33)
[2019-12-18] MEDS: Ipratropium/Albuterol 4 GM 120 PUFF INH IH ×4 (07:33→20:16)
[2019-12-18] MEDS: Bumetanide 1 MG TAB PO ×2 (07:42→15:55)
[2019-12-18] MEDS: DULoxetine 30 MG CAP PO (07:42)
[2019-12-18] MEDS: Metoprolol CR 100 MG TABCR PO (07:42)
[2019-12-18] MEDS: Allopurinol 300 MG TAB PO (07:43)
[2019-12-18] MEDS: Pantoprazole 40 MG TABCR PO (07:43)
[2019-12-18] MEDS: rOPINIRole 0.5 MG TAB 0.25 MG PO ×3 (07:43→20:16)
[2019-12-18] MEDS: Amiodarone 200 MG TAB PO (07:43)
[2019-12-18] MEDS: predniSONE 5 MG TAB PO (07:43)
[2019-12-18] MEDS: Spironolactone 25 MG TAB 12.5 MG PO (07:43)
[2019-12-18] MEDS: Sennosides/Docusate Sodium TAB 2 TAB PO (07:47)
--- NOTE | 2019-12-18 09:12 | W.PM.PROGNOT ---
Date of Service Date of service: 12/18/19 Time of Service: 09:13 Assessment and Plan Assessment and plan (1) Ventricular tachycardia: Status: Chronic Assessment and plan: stable, continue amiodarone. ICD in place and has not fired. had his cardiology appointment scheduled with Dr Ramirez on December 14 at 1:20 pm. will likely be discharged to home on hospice next week, case management following. palliative care following (2) Dilated idiopathic cardiomyopathy: Status: Chronic Assessment and plan: TTE shows mildly dilated LV with EF 10% and diffuse hypokinesis. continue amiodarone, spironolactone and warfarin. Spironolactone had been decreased to 12.5 mg daily due to soft blood pressures. We can increase as tolerated per cardiology recommendations but it continues to remain soft so no adjustments for now. Palliative recommends LOW DOSE MORPHINE CONCENTRATE to be used for dyspnea, wit 5-10 mg q 1 hrs prn dyspnea, order renewed. (3) Diabetes mellitus type 2 with neurological manifestations: Status: Chronic Assessment and plan: continue diabetic diet, sliding scale as needed. A1C 6.6 (4) Ambulatory dysfunction: Status: Acute Assessment and plan: PT/OT (5) HTN (hypertension): Status: Chronic Assessment and plan: blood pressures soft, he is asymptomatic, continue monitoring and adjust medications as needed. (6) Gout: Status: Chronic Assessment and plan: continue allopurinol. (7) DVT prophylaxis: Status: Acute Assessment and plan: fully anticoagulated on coumadin. has been on hold for INR 4.4, now down to 2.1, will resume tomorrow. continue to monitor and adjust as needed. (8) Discharge planning issues: Status: Acute Assessment and plan: case management following for discharge planning Case discussed with Dr. Muñoz who is in agreement Subjective Subjective Patient reports: no new complaints, tolerating liquids well, tolerating a regular diet and voiding w/o difficulty Exam Const General: cooperative, healthy appearing, comfortable and no acute distress Nutritional Appearance: average body habitus Orientation: alert, awake and oriented x3 HENMT Head: normal to inspection, normocephalic and atraumatic Face and sinus: normal facial exam Mouth: oral mucosae normal Resp Effort & Inspection: normal respiratory effort Cardio Rate: bradycardic Rhythm: regular rhythm GI Inspection: normal to inspection Palpation: soft Auscultation: normal bowel sounds Skin General skin exam: no rashes or lesions noted Neuro General: patient alert, patient awake and patient oriented x3 Cranial Nerves: CN's II-XI intact bilaterally Extrem General: normal to inspection and full ROM Objective Objective Clinical Data: Abnormal lab results 12/18/19 Range/Units 06:10 PT 20.7 H D (9.3-11.0) sec INR 2.1 H (0.9-1.1) Vital Signs Temperature 36.1 C L 12/18/19 07:09 Temperature Source Tympanic 12/18/19 07:09 Pulse 67 12/18/19 07:09 Pulse Rhythm Regular 12/18/19 06:16 Respiratory Rate 20 12/18/19 07:09 Respiratory Effort 12/18/19 06:16 Respiratory Depth Normal 12/18/19 06:16 Respiratory Pattern Normal 12/18/19 06:16 Blood Pressure 99/77 L 12/18/19 07:09 Pulse Oximetry 93 L 12/18/19 07:09 Oxygen Delivery Method Room Air 12/18/19 07:09 Oxygen Flow Rate 0 12/18/19 07:09 Pain Level 0 12/18/19 07:09 Comment 12/12/19 19:40 Intake & Output 12/17/19 12/17/19 12/18/19 11:59 23:59 11:59 Intake Total 480 / 960 480 / 960 Output Total 500 / 1250 750 / 1250 250 / 250 Balance -20 / -290 -270 / -290 -250 / -250 Weight 80.2 kg 80.1 kg Intake: Oral 480 / 960 480 / 960 Output: Urine 500 / 1250 750 / 1250 250 / 250 Other: Urine Color Light Livier Yellow Yellow Urine Appearance Clear Clear Clear Urine Odor None None Comment WNL Voiding Methods Urinal Toilet Laboratory Results WBC 11.26 10^3/uL (4.4-10.8) H 12/10/19 06:07 RBC 3.59 10^6/uL (4.36-5.78) L 12/10/19 06:07 Hgb 12.8 g/dL (13.5-17.5) L 12/10/19 06:07 Hct 37.0 % (40.0-50.0) L 12/10/19 06:07 MCV 103.1 fL (80-95) H 12/10/19 06:07 MCH 35.7 pg (27.0-33.0) H 12/10/19 06:07 MCHC 34.6 % (32.0-36.0) 12/10/19 06:07 RDW 14.6 % (11.8-14.1) H 12/10/19 06:07 Plt Count 172 10^3/uL (130-400) 12/10/19 06:07 MPV 10.5 fL (8.0-11.0) 12/10/19 06:07 Immature Gran % 0.7 12/10/19 06:07 Neutrophils % 73.8 12/10/19 06:07 Lymphocytes % 12.9 12/10/19 06:07 Monocytes % 8.9 12/10/19 06:07 Eosinophils % 3.3 12/10/19 06:07 Basophils % 0.4 12/10/19 06:07 Absolute Neutrophils 8.31 10^3/uL (1.2-6.7) H 12/10/19 06:07 Absolute Lymphocytes 1.45 10^3/uL (1.2-3.4) 12/10/19 06:07 Absolute Monocytes 1.00 10^3/uL (0.1-0.8) H 12/10/19 06:07 Absolute Eosinophils 0.37 10^3/uL (0.0-0.7) 12/10/19 06:07 Absolute Basophils 0.05 10^3/uL (0.0-0.2) 12/10/19 06:07 PT 20.7 sec (9.3-11.0) H D 12/18/19 06:10 INR 2.1 (0.9-1.1) H 12/18/19 06:10 Sodium 133 mmol/L (136-145) L 12/10/19 06:07 Potassium 3.7 mmol/L (3.5-5.1) 12/10/19 06:07 Chloride 98 mmol/L (98-107) 12/10/19 06:07 Carbon Dioxide 27.4 mmol/L (21.0-32.0) 12/10/19 06:07 Anion Gap 7.6 mmol/L (3-11) 12/10/19 06:07 BUN 24 mg/dL (7-18) H 12/10/19 06:07 Creatinine 1.19 mg/dL (0.70-1.30) 12/10/19 06:07 Estimated GFR/1.73 m2 59.28 (mL/min/1.73m2) 12/10/19 06:07 Glucose 122 mg/dL (74-106) H 12/10/19 06:07 Calcium 8.6 mg/dL (8.5-10.1) 12/10/19 06:07 Troponin I < 0.05 ng/mL (<0.06) 12/10/19 14:25 NT-Pro-B Natriuret Pep 8042 pg/mL (<300) H 12/10/19 14:25
--- NOTE | 2019-12-18 09:34 | OT.INTREAT ---
Date of service: 12/18/19 Time of Service: 07:55 Occupational Therapy Notes Occupational Therapy Inpatient Treatment Note Date: 12/18/19 PRECAUTIONS: Fall, Standard, DNR/DNI SUBJECTIVE: Pt was sitting in bed when OT arrived, he was agreeable to OT session and states that he is scared what it will look like when he goes home. He states he is not sure why he is scared but he feels anxious about it. OBJECTIVE: PAIN:0/10 pain FUNCTIONAL MOBILITY Rolling L/R: (I) Supine-sit: (I) Sit-stand: (I) Stand-sit: (I) Bed-Chair: (S) Dressing- OT and pt went over use of adaptive equipment including his sock aid, dressing stick and senior commissions analyst. Pt was able to demonstrate don and doffing (B) socks with sock aid with min vc. Pt was able to demonstrate this without labored breathing and ideal technique. OT and pt went over dressing stick and use of dressing stick for pants including pulling pants up and pushing pants off. Pt was able to demonstrate with good technique he required min (A) with placement of dressing stick on pants but verbalized understanding to this. OT emphasized the importance of performance of ADLs including dressing with adaptive equipment. ASSESSMENT/PLAN: Pt states that he believes he is leaving next Saturday. Goal will be continued care to progress pts functional (I) and functional activity tolerance in the standing position as he does for his baseline level of function. TREATMENT CODES/TIME: [id number], 20 minutes (07:55) Carmen Gurrola, OTR/L [facility]
--- NOTE | 2019-12-18 11:17 | PT.INTREAT ---
Date of service: 12/18/19 Time of Service: 09:15 PT Notes Visit Reasons: DECONDITIONING Inpatient Physical Therapy Treatment Note [facility] Date: 12/18/2019 SUBJECTIVE: Irineo reports that PT pooped him out yesterday. He denies any muscle soreness today. OBJECTIVE: [] BED MOBILITY/TRANSFERS Sit-stand: S Stand-sit: S Bed-Chair:S Chair-bed: S GAIT Assistive Device:FWW Weight bearing: FWB Assist: SBA Distance: 100'+150' THEREX: global LE strengthening routine see flowsheet for details. ASSESSMENT: tolerated session well. SOB noted with exercises, required sitting rest breaks. Is tired post PT sessions. PLAN: continue with PT POC of 1x/day. TREATMENT CODE/TIME: 25 min . [id number], [id number].
--- NOTE | 2019-12-18 13:00 | W.NUTRFU ---
Date of service: 12/18/19 Time of Service: 13:00 Nutritional Follow up NOTE: Srini has end stage CHF, continues to meet 100% nutrient and fluid needs by mouth, weight stable. Not at risk for nutritional decline at this time. Time Spent in Nutritional Counseling and Treatment: 5 min spent face to face
[2019-12-18] MEDS: Atorvastatin 40 MG TAB PO (20:16)
[2019-12-18] MEDS: diazePAM 2 MG TAB PO (20:27)
[2019-12-19 07:36] LABS: INR 1.9 (0.9-1.1); Prothrombin Time 19.1 sec (9.3-11.0)
[2019-12-19 07:46] VITALS: BP 97/62; PULSE 71; RESP 18; TEMP 36.1; O2SAT 95
[2019-12-19] MEDS: Pantoprazole 40 MG TABCR PO (07:47)
[2019-12-19] MEDS: Bumetanide 1 MG TAB PO ×2 (07:47→15:51)
[2019-12-19] MEDS: Spironolactone 25 MG TAB 12.5 MG PO (07:47)
[2019-12-19] MEDS: rOPINIRole 0.5 MG TAB 0.25 MG PO ×3 (07:47→19:50)
[2019-12-19] MEDS: Amiodarone 200 MG TAB PO (07:47)
[2019-12-19] MEDS: DULoxetine 30 MG CAP PO (07:48)
[2019-12-19] MEDS: Allopurinol 300 MG TAB PO (07:48)
[2019-12-19] MEDS: Metoprolol CR 100 MG TABCR PO (07:48)
[2019-12-19] MEDS: predniSONE 5 MG TAB PO (07:48)
[2019-12-19] MEDS: Ipratropium/Albuterol 4 GM 120 PUFF INH IH ×4 (07:57→19:48)
[2019-12-19] MEDS: Umeclidinium 7 CAP INHALER 1 CAP IH (07:57)
--- NOTE | 2019-12-19 10:16 | PTTR_ITS ---
Date of service: 12/19/19 Time of Service: 10:17 PT Notes Visit Reasons: DECONDITIONING 12/19/2019 SUBJECTIVE: Srini reporting fatigue this morning after being up and getting washed up. He is willing to try to participate in PT. OBJECTIVE: Seated in chair. Agreeable to PT treatment. TRANSFERS Sit to stand: S Stand to sit: S Sit to supine: S GAIT Device: FWW Weight bearing: full Assist: SBA Distance: 100' Deviation: Requires quick seated rest break in the [place] due to LE fatigue. ASSESSMENT: Continues to be deconditioned and he is quite fatigued today requiring quick seated rest break and a ride back to his room due to LE fatigue. PLAN: Continue to progress as per POC. Treatment time: 10 Elsy Mitchell PTA Clinic location: [facility] [place], [place]
[2019-12-19] MEDS: Normal Saline Flush 10 ML SYR IVP (15:52)
[2019-12-19 18:49] VITALS: BP 106/68; PULSE 68; RESP 19; TEMP 36.4; O2SAT 94
[2019-12-19] MEDS: Atorvastatin 40 MG TAB PO (19:48)
[2019-12-19] MEDS: Warfarin 1 MG TAB PO (19:49)
[2019-12-19] MEDS: diazePAM 2 MG TAB PO (19:49)
[2019-12-20] MEDS: Pantoprazole 40 MG TABCR PO (06:29)
[2019-12-20 07:43] VITALS: BP 93/61; PULSE 71; RESP 18; TEMP 36.4; O2SAT 91
[2019-12-20] MEDS: Spironolactone 25 MG TAB 12.5 MG PO (07:48)
[2019-12-20] MEDS: DULoxetine 30 MG CAP PO (07:48)
[2019-12-20] MEDS: predniSONE 5 MG TAB PO (07:49)
[2019-12-20] MEDS: Bumetanide 1 MG TAB PO ×2 (07:49→16:18)
[2019-12-20] MEDS: Allopurinol 300 MG TAB PO (07:49)
[2019-12-20] MEDS: Amiodarone 200 MG TAB PO (07:49)
[2019-12-20] MEDS: rOPINIRole 0.5 MG TAB 0.25 MG PO ×3 (07:49→19:36)
[2019-12-20] MEDS: Umeclidinium 7 CAP INHALER 1 CAP IH (08:02)
[2019-12-20] MEDS: Ipratropium/Albuterol 4 GM 120 PUFF INH IH ×4 (08:02→19:35)
[2019-12-20 08:09] LABS: INR 1.8 (0.9-1.1); Prothrombin Time 17.8 sec (9.3-11.0)
[2019-12-20 08:25] VITALS: BP 102/70
[2019-12-20] MEDS: Metoprolol CR 100 MG TABCR PO (08:26)
[2019-12-20] MEDS: Sennosides/Docusate Sodium TAB 2 TAB PO (08:26)
--- NOTE | 2019-12-20 10:16 | PT.INTREAT ---
Date of service: 12/20/19 Time of Service: 10:17 PT Notes Visit Reasons: DECONDITIONING 12/20/2019 SUBJECTIVE: Doing better today than yesterday. He slept well. OBJECTIVE: Seated EOB. Agreeable to PT treatment. TRANSFERS Sit to stand: S Stand to sit: S GAIT Device: FWW Weight bearing: Full Assist: SBA Distance: 150'+75' Deviation: One sit rest break, wheel chair follow ASSESSMENT: Better tolerance to walking today with increased gait distance and speed. He did not complain of being SOB today. PLAN: Continue to progress mobility as he is able to tolerate. Treatment time: 20 minutes [id number] Elsy Mitchell PTA Clinic location: [facility] [place], [place]
[2019-12-20] MEDS: Normal Saline Flush 10 ML SYR IVP (16:18)
[2019-12-20] MEDS: Atorvastatin 40 MG TAB PO (19:35)
[2019-12-20] MEDS: diazePAM 2 MG TAB PO (19:36)
[2019-12-21 07:22] VITALS: BP 101/68; PULSE 68; RESP 18; TEMP 35; O2SAT 93
[2019-12-21 07:34] LABS: INR 1.6 (0.9-1.1); Prothrombin Time 15.7 sec (9.3-11.0)
[2019-12-21] MEDS: Umeclidinium 7 CAP INHALER 1 CAP IH (07:49)
[2019-12-21] MEDS: Ipratropium/Albuterol 4 GM 120 PUFF INH IH ×4 (07:50→19:33)
[2019-12-21 08:20] VITALS: O2SAT 93
[2019-12-21] MEDS: rOPINIRole 0.5 MG TAB 0.25 MG PO ×3 (08:20→19:32)
[2019-12-21] MEDS: Allopurinol 300 MG TAB PO (08:20)
[2019-12-21] MEDS: Bumetanide 1 MG TAB PO ×2 (08:20→16:56)
[2019-12-21] MEDS: Amiodarone 200 MG TAB PO (08:21)
[2019-12-21] MEDS: Pantoprazole 40 MG TABCR PO (08:21)
[2019-12-21] MEDS: predniSONE 5 MG TAB PO (08:21)
[2019-12-21] MEDS: DULoxetine 30 MG CAP PO (08:21)
[2019-12-21] MEDS: Spironolactone 25 MG TAB 12.5 MG PO (08:21)
[2019-12-21] MEDS: Metoprolol CR 100 MG TABCR PO (08:22)
--- NOTE | 2019-12-21 09:01 | OTTR_ITS ---
Date of service: 12/21/19 Time of Service: 07:15 Occupational Therapy Notes Occupational Therapy Inpatient Treatment Note Date: 12/21/19 PRECAUTIONS: Fall, Standard, DNR/DNI SUBJECTIVE: Pt states that he is tired but thinks that he is going home in the next couple days. He is not sure how he is feeling about this and feels that this could go either way for him. He is agreeable to OT session. OBJECTIVE: PAIN: no c/o pain FUNCTIONAL MOBILITY Supine-sit: (I) Sit-stand: (I) Stand-sit: (I) Bed-Chair: (S) BATHING: Upper Body: Standing at sink with FWW and min vc, slight LOB after 10 minutes in standing dynamic position. Pt is able to (I) wash his face, (B) UE and abdomen. DRESSING: Upper Extremity: Standing at sink able to don and doff t-shirt (I) with no LOB GROOMING: Standing at sink (I) with brushing hair and min vc for dynamic standing weight shifting to decrease LOB TOILETING: Device: Toilet Assist: (I) ASSESSMENT/PLAN: Pt is demonstrating increased functional activity tolerance with his standing ADLs/IADLs. He is able to tolerate his ADLs without increased SOB. He is nervous to return home, but states that he feels that with help he will be able to perform his ADLs. OT and pt discuss respecting his breathing and discomfort and not pushing through. Taking breaks will be important in order for pt to be successful in his home setting. TREATMENT CODES/TIME: [id number], 30 minutes (07:15) Carmen Gurrola OTR/[facility]
--- NOTE | 2019-12-21 09:27 | PT.INTREAT ---
Date of service: 12/21/19 Time of Service: 09:27 PT Notes Visit Reasons: DECONDITIONING Inpatient Physical Therapy Treatment Note [facility] Date: 12/21/19 PRECAUTIONS: Fall, Activity as Tolerated SUBJECTIVE: Irineo states that he is feeling pretty good, but is not excited to participate in PT. OBJECTIVE: PAIN: No c/o pain BED MOBILITY/TRANSFERS Sit-stand: S Stand-sit: S GAIT Assistive Device: FWW Weight bearing: Full Assist: SBA Distance: 120' Deviation: No rests THEREX: Patient completed a resisted UE and LE exercise program, utilizing orange Theraband, 3# hand weights, and 3# ankle weights. Patient completed LAQ, hip flexion, and hip abduction exercises, as well as shoulder abduction, bicep curls, and seated rows, as per flow sheet. Patient required rest x 1-2 minutes between each exercise. ASSESSMENT: Patient tolerated session without complaint. He demonstrates SOB with activity, requiring rests between exercises. PLAN: Continue with PT's POC TREATMENT CODE/TIME: 25 minutes; [id number], [id number]
[2019-12-21] MEDS: Atorvastatin 40 MG TAB PO (19:34)
[2019-12-21] MEDS: Warfarin 1 MG TAB PO (19:41)
[2019-12-22 07:19] LABS: INR 1.5 (0.9-1.1)
[2019-12-22 07:29] VITALS: BP 102/65; PULSE 68; RESP 15; TEMP 35.6; O2SAT 94
[2019-12-22] MEDS: Sennosides/Docusate Sodium TAB 2 TAB PO (07:55)
[2019-12-22] MEDS: Metoprolol CR 100 MG TABCR PO (07:55)
[2019-12-22] MEDS: Bumetanide 1 MG TAB PO ×2 (07:55→15:40)
[2019-12-22] MEDS: Allopurinol 300 MG TAB PO (07:56)
[2019-12-22] MEDS: predniSONE 5 MG TAB PO (07:56)
[2019-12-22] MEDS: rOPINIRole 0.5 MG TAB 0.25 MG PO ×3 (07:56→19:26)
[2019-12-22] MEDS: DULoxetine 30 MG CAP PO (07:56)
[2019-12-22] MEDS: Amiodarone 200 MG TAB PO (07:56)
[2019-12-22] MEDS: Pantoprazole 40 MG TABCR PO (07:56)
[2019-12-22] MEDS: Spironolactone 25 MG TAB 12.5 MG PO (07:57)
[2019-12-22 08:01] VITALS: O2SAT 94
--- NOTE | 2019-12-22 08:38 | OTTR_ITS ---
Date of service: 12/22/19 Time of Service: 07:45 Occupational Therapy Notes Occupational Therapy Inpatient Treatment Note Date: 12/22/19 PRECAUTIONS: Fall, Standard, DNR/DNI SUBJECTIVE: Pt was awake and sitting in chair when OT arrived. He was agreeable to OT Session and reports that he is supposed to go home on Saturday. OBJECTIVE: PAIN:no c/o pain FUNCTIONAL MOBILITY Sit-stand: (S) FWW Stand-sit: (S) FWW Bed-Chair: (S) Chair-bed: (S) BATHING: Standing at sink with FWW Upper Body: (I) face, (B) UE, and abdomen with min vc Lower Body: (I) with (B) LE with CGA and FWW DRESSING: Upper Extremity: Standing at sink with FWW (I) with don and doffing t-shirt Lower Extremity: Seated in chair (I) with don and doffing pants GROOMING: seated (I) with brushing hair ASSESSMENT/PLAN: Pt required increased rest breaks today between functional activities, he was receptive and an active participant. He did not have any LOB with standing ADLs today and has made good progressions on his functional activity tolerance with respect to his breathing. TREATMENT CODES/TIME: [id number], 30 minutes (07:45) CAM Mcintyre/[facility]
[2019-12-22] MEDS: Ipratropium/Albuterol 4 GM 120 PUFF INH IH ×4 (09:25→19:27)
[2019-12-22] MEDS: Umeclidinium 7 CAP INHALER 1 CAP IH (09:25)
--- NOTE | 2019-12-22 10:02 | PTTR_ITS ---
Date of service: 12/22/19 Time of Service: 10:02 PT Notes Visit Reasons: DECONDITIONING Inpatient Physical Therapy Treatment Note [facility] Date: 12/22/19 PRECAUTIONS: Fall, Activity as Tolerated SUBJECTIVE: Irineo states that he is not feeling well today, he reports that he didn't sleep well last night. He reports that he has resevations about home tomorrow. OBJECTIVE: Per RT, patient did not receive inhalers at typical time this morning, which could play a role in his increased SOB today. Patient received inhaler medication during PT session. PAIN: No c/o pain BED MOBILITY/TRANSFERS Sit-stand: S Stand-sit: S GAIT Assistive Device: FWW Weight bearing: Full Assist: SBA Distance: 60' x2 Deviation: Standing rest x1, increased SOB THEREX: Patient completed a resisted UE and LE exercise program, utilizing ora nge Theraband, 3# hand weights, and 3# ankle weights. Patient completed standing hip flexion hip abduction, knee flexion, and heel raises, as well as shoulder abduction, bicep curls, and seated rows, as per flow sheet. Patient required rest x 1-2 minutes between each exercise. ASSESSMENT: Patient tolerated session with complaint of increased SOB and fatigue. He demonstrates SOB with activity, requiring rests between exercises. PLAN: Continue with PT's POC TREATMENT CODE/TIME: 25 minutes; [id number], [id number]
[2019-12-22] MEDS: Polyethylene Glycol 3350 17 GM PACKET PO (10:56)
[2019-12-22] MEDS: Normal Saline Flush 10 ML SYR IVP (13:32)
[2019-12-22] MEDS: Atorvastatin 40 MG TAB PO (19:26)
[2019-12-23] MEDS: Pantoprazole 40 MG TABCR PO (06:47)
[2019-12-23 06:54] LABS: INR 1.6 (0.9-1.1); Prothrombin Time 16.3 sec (9.3-11.0)
[2019-12-23] MEDS: Umeclidinium 7 CAP INHALER 1 CAP IH (07:38)
[2019-12-23] MEDS: Ipratropium/Albuterol 4 GM 120 PUFF INH IH ×3 (07:38→15:20)
[2019-12-23] MEDS: Amiodarone 200 MG TAB PO (07:40)
[2019-12-23] MEDS: predniSONE 5 MG TAB PO (07:40)
[2019-12-23] MEDS: Normal Saline Flush 10 ML SYR IVP (07:40)
[2019-12-23] MEDS: DULoxetine 30 MG CAP PO (07:40)
[2019-12-23] MEDS: Sennosides/Docusate Sodium TAB 2 TAB PO (07:40)
[2019-12-23] MEDS: Allopurinol 300 MG TAB PO (07:40)
[2019-12-23] MEDS: Bumetanide 1 MG TAB PO (07:40)
[2019-12-23] MEDS: rOPINIRole 0.5 MG TAB 0.25 MG PO ×2 (07:41→13:59)
[2019-12-23] MEDS: Spironolactone 25 MG TAB 12.5 MG PO (07:41)
[2019-12-23] MEDS: Metoprolol CR 100 MG TABCR PO (07:42)
[2019-12-23 08:02] VITALS: BP 100/69; PULSE 77; RESP 17; TEMP 36.8; O2SAT 92
--- NOTE | 2019-12-23 08:19 | OTTR_ITS ---
Date of service: 12/23/19 Time of Service: 07:30 Occupational Therapy Notes Occupational Therapy Inpatient Treatment Note Date: 12/23/19 PRECAUTIONS: Fall, Standard, DNR/DNI SUBJECTIVE: Pt states that he is supposed to go home today. He states that he is not sure how he feels and states that he will be going home with a hospital bed and HH services which he feels will be helpful. OBJECTIVE: PAIN:0/10 FUNCTIONAL MOBILITY Sit-stand: (S) FWW Stand-sit: (S) FWW Bed-Chair: (S) FWW Chair-bed: (S) FWW BATHING: Standing at sink with FWW Upper Body: (I) UE with max (A) back DRESSING: Upper Extremity: standing at sink with FWW, pt was (I) with don and doffing shirt. GROOMING: Standing at sink with FWW pt was (I) with brushing hair with no LOB and ideal. ASSESSMENT/PLAN: Pt is demonstrating increased functional activity tolerance, he is able to perform his standing ADLs without LOB. He does take multiple breaks which is required due to his breathing. He states that the plan is for him to return home today with HH services today. TREATMENT CODES/TIME: [id number], 15 minutes (07:30) Carmen Gurrola OTR/[facility]
[2019-12-23] MEDS: Milk of Magnesia 30 ML CUP PO (10:40)
--- NOTE | 2019-12-23 11:10 | W.PM.DS.N ---
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 (4) Ambulatory dysfunction: Status: Acute (5) HTN (hypertension): Status: Chronic (6) Gout: Status: Chronic Discharge Plan Disposition Patient Disposition: HOME W/HOME HEALTH SERVICE Condition: Fair Discharge Details Reason For Visit: DECONDITIONING Admit Date/Time: 12/09/19 12:03 Admit Provider: Zi Jones Attending Provider: Zi Jones Primary Care Provider: Bennie Adams Hospital Course Hospital Course: This is a 79-year-old male patient well-known to the hospitalist service who has a past medical history of dilated cardiomyopathy with an ICD implant who presented to the emergency department here at [facility] after having several shocks from his ICD which he had 2 additional shocks after arriving here to the emergency department. The evaluation in the emergency department showed a potassium level of 3.1 and magnesium of 1.3. He was transferred to [facility] where he was started on amiodarone load as well as electrolyte replacement. While at [facility] he had no further shocks and remained hemodynamically stable. Interrogation of his ICD did show 3 episodes of ventricular fibrillation that were appropriately shocked. They stopped his digoxin. His Metroprolol dosing was continued and they were unable to up-titrated due to heart rate in the 50s and 60s. A TTE showed mildly dilated LV with severely reduced EF at 10%. He did undergo a nuclear stress test which showed mild lateral wall ischemia with no reversible defects. Possible cardiac catheterization was discussed but it was thought that this was not a large contributor to his cardiomyopathy. Initially his Coumadin was placed on hold but this was restarted as it was decided he would not undergo the cardiac catheterization at that time. Medically he remained stable. His spironolactone dose was decreased due to some soft blood pressures. Recommendations were to increase as tolerated. He remained too deconditioned to return home so was admitted here under swing level status for rehabilitation case management will be following. While under swing level status he did require some extra Lasix dosing but course was essentially unremarkable. He did have a palliative care consult and decision was made for him to be discharged home on hospice services. Astrid Meyer MD evaluated him and has made arrangements for his discharge and medications. Prior to discharge patient reportedly fell to the ground. He was assisted up and no injuries noted. He was assessed prior to discharge and denies hitting his head, no cspine tenderness of palpation, he had full ROM to all extremities, no abrasions or lacerations, no bruises. no c/o of pain. He is being discharged to home on hospice. case discussed with Dr Gar who is in agreement Home Meds and New Rx's Prescriptions: Continued (DME) Inhaler, Assist Devices [Aerochamber Mini] 1 EACH spacer 1 ea Miscellaneous PRN Qty: 1 RF: 0 allopurinol 300 mg tablet 300 mg PO DAILY Qty: 90 RF: 3 diazepam 2 mg tablet 2 mg PO QHS PRN (Reason: anxiety) Qty: 30 RF: 2 prednisone 5 mg tablet 5 mg PO DAILY Qty: 30 RF: 5 polyethylene glycol 3350 [Miralax] 17 gram Powder In Packet 17 g PO DAILY PRNRF: 0 amiodarone 200 mg Tablet 200 mg PO DAILY RF: 0 sennosides-docusate sodium [Senna with Docusate Sodium] 8.6-50 mg Tablet 2 tab PO BID PRNRF: 0 metoprolol succinate 100 mg Tablet Extended Release 24 Hr 100 mg PO DAILY RF: 0 spironolactone 25 mg Tablet 12.5 mg PO DAILY RF: 0 nitroglycerin 0.4 mg Tablet, Sublingual 0.4 mg SUBLINGUAL Q5-15M PRNRF: 0 bumetanide 1 mg Tablet 1 mg PO DAILY RF: 0 pantoprazole 40 mg Tablet,Delayed Release (Dr/Ec) 40 mg PO DAILY RF: 0 albuterol sulfate 90 mcg/actuation Aero Powdr Breath Act W/Sensor 1 inh INHALATION Q4H PRN PRNRF: 0 Incruse Ellipta 62.5 mcg/actuation Blister With Device 1 inh INHALATION DAILY RF: 0 atorvastatin 40 mg Tablet 40 mg PO QPM RF: 0 acetaminophen [Tylenol] 325 mg Tablet 325 mg PO Q4H PRN PRNQty: 0 RF: 0 warfarin [Coumadin] 1 mg Tablet 1 mg PO [id number]@2000 Qty: 0 RF: 0 Combivent Respimat 20-100 mcg/actuation Mist 1 puff inhalation QID Qty: 1 RF: 0 duloxetine 30 mg capsule,delayed release(DR/EC) 30 mg PO DAILY Qty: 30 RF: 0 ropinirole 0.5 mg tablet 0.25 mg PO TID RF: 0 Discharge Instructions Instructions: Heart Failure (DC) Additional Instructions: Patient is being discharged home with hospice. All medications as directed by hospice services Stand Alone Forms: Nursing Discharge Form Referrals: Astrid Meyer MD [ [facility]] - (Routine hospice follow-up) Activity:: Activity as Tolerated Equipment/Supplies:: Hospital bed Diet:: Low Sodium Discharge Orders Discharge Orders: Discharge Order (Routine); Ordered 12/23/19 Ordered By: Dalila Patino DS: Summary Status at Discharge Functional status at discharge: uses cane/walker Overall status at discharge: patient is not back to baseline Mental Status: mental status grossly normal Speech and Movement: speech and movement normal Mood: congruent mood Affect: normal affect Exam Const General: cooperative, healthy appearing, comfortable and no acute distress Nutritional Appearance: average body habitus Orientation: alert, awake and oriented x3 HENMT Head: normal to inspection, normocephalic and atraumatic Face and sinus: normal facial exam Mouth: oral mucosae normal Resp Effort & Inspection: normal respiratory effort Auscultation: rales (fine in bases bilaterally, no wheezing) Cardio Rate: bradycardic Rhythm: regular rhythm GI Inspection: normal to inspection Palpation: soft Auscultation: normal bowel sounds Skin General skin exam: no rashes or lesions noted Neuro General: patient alert, patient awake and patient oriented x3 Cranial Nerves: CN's II-XI intact bilaterally Extrem General: normal to inspection and full ROM Psych Mental Status: mental status grossly normal Speech and Movement: speech and movement normal Mood: congruent mood Affect: normal affect DS: Data Vitals/I&O Vitals and I&O: Vital Signs Temperature 36.8 C 12/23/19 08:02 Temperature Source Tympanic 12/23/19 08:02 Pulse 77 12/23/19 08:02 Pulse Rhythm Irregular 12/23/19 07:45 Respiratory Rate 17 12/23/19 08:02 Respiratory Effort Non-Labored 12/23/19 07:45 Respiratory Depth Normal 12/23/19 07:45 Respiratory Pattern Normal 12/23/19 07:45 Blood Pressure 100/69 12/23/19 08:02 Pulse Oximetry 92 L 12/23/19 08:02 Oxygen Delivery Method Room Air 12/23/19 08:02 Oxygen Flow Rate 0 12/23/19 08:02 Pain Level 0 12/23/19 08:02 Comment 12/12/19 19:40 Intake & Output 12/22/19 12/22/19 12/23/19 11:59 23:59 11:59 Intake Total 360 / 1080 720 / 1080 480 / 480 Output Total 750 / 2150 1400 / 2150 650 / 650 Balance -390 / -1070 -680 / -1070 -170 / -170 Weight 79.5 kg 79.3 kg Intake: Oral 360 / 1080 720 / 1080 480 / 480 Output: Urine 750 / 2150 1400 / 2150 650 / 650 Other: Urine Color Yellow Yellow Yellow Urine Appearance Clear Clear Clear Urine Odor Normal Normal Stool Size Moderate Stool Characteristics Formed Brown Voiding Methods Urinal Urinal Urinal Data Completed and Pending Labs on day of discharge: Labs from last 24 hours 12/23/19 06:06 PT 16.3 H INR 1.6 H PFSH Medical History (Updated 12/11/19 @ 12:37 by Astrid Meyer MD) Asthma (Chronic) Atrial fibrillation (Chronic) Bronchiectasis (Acute 04/13/16) Chronic combined systolic and diastolic CHF (congestive heart failure) (Acute) Chronic fatigue (Chronic) Dilated idiopathic cardiomyopathy (Chronic) did not tolerate entresto. 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) Non-insulin dependent diabetes mellitus (Acute) Palliative care patient (Chronic) Peripheral edema (Acute) Physical deconditioning (Acute) Pneumonia (Inactive) POLST (Physician Orders for Life-Sustaining Treatment) (Acute) [email or web address], signed 12/11/19 Positive blood culture (Inactive) Pulmonary hypertension (Chronic) Restless leg syndrome (Acute) Right lower lobe pneumonia (Inactive) 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 Cataracts bilaterally b. Inguinal hernia LEFT HEART CARDIAC CATH Pacemaker (Acute) Repair of inguinal hernia left Family History (Updated 12/11/19 @ 12:32 by sAtrid Meyer MD) Father Heart disease Mother Heart disease Daughter No problems noted. Sister No problems noted. Social History (Updated 12/11/19 @ 12:32 by Astrid Meyer MD) Smoking/Tobacco Use Status: Never Alcohol Intake: never Drug use: Never Substance use type: does not use Caregiver/Support person: Yes Household members: children Housing: house Number of Children: 3 number of grandchildren: 6 Communication Needs: Hard of Hearing and Corrective Lenses Education Level: high school Do you need help understanding health information?: Always current occupation: retired Pets and animals: No Current gender identity: male What is your relationship status?: How often do you get together with friends or relatives?: three or more times per week Panel score (0-1 are the most socially isolated patients): 1 What type of physical activity do you participate in: none and sedentary lifestyle Special amanda needs: No Seatbelt use: always Working smoke detector in home: Yes Fire extinguisher in home: Yes Do you feel safe at home: Yes Do you feel safe in your relationship?: Yes Additional Social history: Daughter Juju and her live in apartment attached to house. Juju willing to sleep in the house if/when her father goes on hospice. Other siblings not involved in their dad's care. Juju with 2 grown children, both with children of their own and jobs. Srini' sister, age 80, willing to come sit with Srini but can't do much hands-on care given her age.
[2019-12-23 15:54] VITALS: BP 120/82; PULSE 92; RESP 20; TEMP 35.9; O2SAT 95
--- NOTE | 2019-12-23 18:06 | CMDISCH_ITS ---
- If Service Date Differs Date of service: 12/23/19 Time of Service: 18:06 LACE Index Scoring Tool - Questions: Length of Stay (in days): 14 or more Acuity (Admit via E.D.?): No Comorbidities: Diabetes w/o Complication, Congestive Heart Failure, Mild Liver/Renal Disease E.D. Visits: 3 - Answers: Total Score: 15 Risk of Readmission: High Risk Care Management Discharge Reason for Hospitalization: Deconditioning Discharge Plan: Irineo will return home in the care of his daughter, Juju. He will enter Hospice tomorrow morning. He will have a meeting with Aria from [facility] to set up additional support afternoon. Irineo stated that [facility] had delivered the equipment requested this morning, as scheduled. His daughter, Juju will drive him home via private vehicle. He stated that he is happy to be returning home. Patient/Family Education Needs: Review discharge instructions and expectations for Hospice support. Discussion of goals of care. Services Needed at Discharge: DME Agency ([facility]), Home Health Care Services (Hospice, HC)
--- NOTE | 2019-12-24 08:41 | PT.INDS ---
Date of service: 12/24/19 Time of Service: 08:41 PT Notes Visit Reasons: DECONDITIONING Inpatient Physical Therapy Initial Dsicharge Summary Dates: 12/24/2019 Date of service: 12/10/2019 through 12/21/2019 This is a clinical summary of care provided on the duration of dates listed above. No charge was made in the completion of this documentation. Referring Doctor: Dalila Patino NP PT Orders: PT CONSULT: Eval/Treat Precautions: Fall. Standard. Activity as tolerated. Patient Profile/Admitting Diagnosis: Srini is a 79-year-old male with diagnosis of ventricular tachycardia with ICD in situ, dilated idiopathic cardiomyopathy with EF of 10%, and ambulatory dysfunction with referral to skilled PT services to address functional mobility decline. He received skilled physical therapy services at this hospital from 10/29/2019 through 11/23/2019 with discharge status of supervision level for all level surface ambulation up to 260 feet using the front wheeled walker. PMHX: Medical History Asthma (Chronic) Atrial fibrillation (Chronic) Bronchiectasis (Acute 04/13/16) Chronic combined systolic and diastolic CHF (congestive heart failure) (Acute) Chronic fatigue (Acute) Dilated idiopathic cardiomyopathy (Chronic) did not tolerate entresto. 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 Cataracts bilaterally b. Inguinal hernia LEFT HEART CARDIAC CATH Pacemaker (Acute) Repair of inguinal hernia left Subjective: NT Objective: General Observation: NT Mental Status: NT Pain: NT ROM: Right Upper Extremity: Shoulder Flexion WFL. Shoulder abduction WFL. Elbow flexion WFL. Wrist flexion WFL. Opening and closing of hand WFL. Left Upper Extremity: Shoulder Flexion WFL. Shoulder abduction WFL. Elbow flexion WFL. Wrist flexion WFL. Opening and closing of hand WFL. Right Lower Extremity: Hip flexion WFL. Hip abduction WFL. Knee flexion WFL. Ankle dorsiflexion WFL. Ankle plantarflexion WFL. Left Lower Extremity: Hip flexion WFL. Hip abduction WFL. Knee flexion WFL. Ankle dorsiflexion WFL. Ankle plantarflexion WFL. Strength: Right Upper Extremity: Shoulder flexors 4/5. Shoulder abductors 4/5. Elbow flexors 4/5. Elbow extensors 4/5. Software Developer Manager strong. Left Upper Extremity: Shoulder flexors 4/5. Shoulder abductors 4/5. Elbow flexors 4/5. Elbow extensors 4/5. Software Developer Manager strong. Right Lower Extremity: Hip flexors 4/-5. Hip abductors 4-/5. Knee flexors 4-/5. Knee extensors 4-/5. Ankle dorsiflexors 4-/5. Ankle plantarflexors 4-/5. Left Lower Extremity:Hip flexors 4-/5. Hip abductors 4-/5. Knee flexors 4-/5. Knee extensors 4-/5. Ankle dorsiflexors 4-/5. Ankle plantarflexors 4-/5. Sensation: Intact as to pain and pressure on bilateral lower extremities. Bed Mobility/Transfers: Sit to supine supervision Sit to stand supervision with FWW Stand to sit supervision with FWW Bed to chair supervision with FWW Chair to bed supervision with FWW Gait: 60-100 feet using FWW with FWB with supervision and minimal to moderate SOB which resolves gradually with extended rests. Balance: Static Sitting: Normal Dynamic Sitting: Normal Static Standing: Fair Dynamic Standing: Fair Assessment: Irineo continues to demonstrates functional mobility decline requiring minimal physical assistance and the use of walker for all mobility ADL performance, strength impairments, balance limitations, and endurance deficits resulting from admitting diagnoses. He will continue to benefit from skilled PT services in order regain prior level of function. He will therefore require supervision assist for all mobility ADL performance and will need assistance with meal preparaton and bathing due to continued decreased activity tolerance. Per care management, patient goes home under [facility] care. Patient continues to present with clinical signs and symptoms consistent with current/admitting diagnoses that have resulted to mobility limitations, gait instability, generalized weakness, and impairment of motor control as demonstrated by the following impairment level findings: 1. Decreased strength to B UE/LE major muscle groups 2. Impaired standing balance 3. Impaired activity tolerance Impairments are continuing to contribute to the following functional limitations: 1. Inability to safely ambulate without assistive device and physical assistance 2. Increase completion time for mobility ADL performance 3. Increased fall risk 4. Inability to negotiate steps alone safely Goals: Goals X1 week 1. Supine-Sit independent NOT MET 2. Sit-Supine independent NOT MET 3. Sit-Stand independent NOT MET 4. Stand-Sit independent NOT MET 5. Bed-Chair independent NOT MET 6. Chair-Bed independent NOT MET 7. Independent gait on level surface with use of least restrictive device for at least 300 feet without report of pain nor dyspnea NOT MET 8. Independent stair negotiation while holding onto bilateral rails for at least 10 steps without report of pain nor dyspnea NOT MET 9. Independent with home exercise program NOT MET 10. Good static and dynamic standing balance/tolerance NOT MET DISCHARGE RECOMMENDATIONS: SNF vs. [facility]. Needs FWW to reduce fall risk. TREATMENT CODE/TIME: NC. Thank you very much for this referral. Beverley Cisneros PT, DPT, CLT [facility] [place], [place]
== END 2019-12-23 16:51 | disposition home health service (06) | DRG 308 ==
PROVIDERS: Family Medicine; Internal Medicine; Nurse Practitioner Acute Care; Admitting Provider Internal Medicine; PCP Family Medicine; Visit Provider Internal Medicine
DX: I47.2 Ventricular tachycardia (principal); I50.43 Acute on chronic combined systolic (congestive) and diastolic (congestive) heart failure; I42.0 Dilated cardiomyopathy; Z95.810 Presence of automatic (implantable) cardiac defibrillator; Z79.01 Long term (current) use of anticoagulants; E11.40 Type 2 diabetes mellitus with diabetic neuropathy, unspecified; R26.2 Difficulty in walking, not elsewhere classified; M10.9 Gout, unspecified; Z66 Do not resuscitate; J45.909 Unspecified asthma, uncomplicated; I48.20 Chronic atrial fibrillation, unspecified; R53.82 Chronic fatigue, unspecified; I11.0 Hypertensive heart disease with heart failure; I50.84 End stage heart failure; R54 Age-related physical debility; K21.9 Gastro-esophageal reflux disease without esophagitis; D47.2 Monoclonal gammopathy; I27.20 Pulmonary hypertension, unspecified; G25.81 Restless legs syndrome; Z86.73 Personal history of transient ischemic attack (TIA), and cerebral infarction without residual deficits
CPT/HCPCS: 36415; 80048; 94640; 97110; 97162; 97165; 97530; 97535; 99255; 99306; 99309; 99316; 71046; 83880; 84484; 85025; 85610; J3490; J7512

== ENCOUNTER → 2020-02-18 13:18 | Outpatient (BNVA) | payer MEDICARE, MEDICAID, SELFPAY | PROVIDERS: PCP Family Medicine; Referring Provider Family Medicine; Visit Provider Internal Medicine Cardiovascular Disease | DX: I50.84 End stage heart failure (principal); I47.2 Ventricular tachycardia; I42.8 Other cardiomyopathies; I11.0 Hypertensive heart disease with heart failure | CPT/HCPCS: 99214 ==

== ENCOUNTER 2020-05-09 16:01 | Outpatient (REF) | payer MEDICARE, MEDICAID, SELFPAY ==
[2020-05-09 17:20] LABS: Bilirubin Negative (Negative); Blood Small (Negative); Clarity Clear (Clear); Glucose Negative (Negative); Ketones Negative (Negative); Leukocyte Esterase Negative (Negative); Nitrite Negative (Negative); pH 5.5 (5-8)
[2020-05-09 17:33] LABS: Bacteria Moderate HPF (Negative); C & S Indicated? C&S Done As Ordered; Casts Negative LPF (Negative); Crystals Many Calcium Oxalate HPF (Negative); Epithelial Cells Few HPF (Negative); Mucus Negative (Negative)
== END 2020-05-09 16:21 ==
LOC: LBN 16:01
PROVIDERS: PCP Family Medicine; Visit Provider Family Medicine
DX: R35.0 Frequency of micturition (principal); R41.0 Disorientation, unspecified
CPT/HCPCS: 81003; 81015; 87086